=== PATIENT | male | born 1950 | race Caucasian/White ===

== ENCOUNTER 2019-12-28 20:08 | Inpatient (IN) | payer MEDICARE ==
[~2019-12-28] VITALS: Ht 175.3 cm; Wt 98.4 kg
[2019-12-28 20:43] VITALS: BP 154/87
[2019-12-28] MEDS ORDERED: METHYL SALICYLATE/MENTHOL TOPICAL OINTMENT 57GM TUBE. TP PRN (21:00)
[2019-12-28] MEDS ORDERED: MAGNESIUM HYDROXIDE 2,400 MG/30 ML ORAL.SUSP. PO PRN (21:00)
[2019-12-28] MEDS ORDERED: MAG HYDROX/AL HYDROX/SIMETH 30 ML ORAL.SUSP PO PRN (21:00)
[2019-12-28 21:55] LABS: BASO # 0.1 x10^3/uL (0.0-0.2); BASO % 1 % (0-3); EOS # 0.2 x10^3/uL (0.0-0.7); EOS % 3 % (0-3); HEMATOCRIT 45.5 % (39.0-53.0); HEMOGLOBIN 15.3 g/dL (13.0-17.5); LYMPH # 3.2 x10^3/uL (1.0-4.8); LYMPH % 40 % (24-48); MEAN CORPUSCULAR HEMOGLOBIN 32 pg (25-35); MEAN CORPUSCULAR HGB CONC 34 g/dL (31-37); MEAN CORPUSCULAR VOLUME 94 fL (79-100); MONO # 0.8 x10^3/uL (0.0-1.1); MONO % 10 % (0-9); NEUT # 3.7 x10^3uL (1.8-7.7); NEUT % 47 % (31-73); PLATELET COUNT 129 x10^3/uL (140-400); RED BLOOD COUNT 4.86 x10^6/uL (4.30-5.70); RED CELL DISTRIBUTION WIDTH 14.5 % (11.5-14.5)
--- NOTE | 2019-12-28 22:10 | PDOC ---
Exam Note: Michael Note: Please also refer to the separate dictated note~for this date of service dictated separately. Discussed the patient with Nursing staff reviewed the chart.~Reviewed interim history and current functioning. Reviewed vital signs,~Labs/ Radiology~and current medications noted below. Continue current treatment with the changes noted in the dictated addendum note Assessment: Vital Signs/I&O: Vital Signs Date Time Temp Pulse Resp B/P (MAP) Pulse Ox O2 Delivery O2 Flow Rate FiO2 12/28/19 20:43 97.6 69 20 154/87 (109) 96 Labs: Laboratory Tests Test 12/28/19 21:43 White Blood Count 8.0 x10^3/uL (4.0-11.0) Red Blood Count 4.86 x10^6/uL (4.30-5.70) Hemoglobin 15.3 g/dL (13.0-17.5) Hematocrit 45.5 % (39.0-53.0) Mean Corpuscular Volume 94 fL (79-100) Mean Corpuscular Hemoglobin 32 pg (25-35) Mean Corpuscular Hemoglobin Concent 34 g/dL (31-37) Red Cell Distribution Width 14.5 % (11.5-14.5) Platelet Count 129 x10^3/uL (140-400) L Neutrophils (%) (Auto) 47 % (31-73) Lymphocytes (%) (Auto) 40 % (24-48) Monocytes (%) (Auto) 10 % (0-9) H Eosinophils (%) (Auto) 3 % (0-3) Basophils (%) (Auto) 1 % (0-3) Neutrophils # (Auto) 3.7 x10^3uL (1.8-7.7) Lymphocytes # (Auto) 3.2 x10^3/uL (1.0-4.8) Monocytes # (Auto) 0.8 x10^3/uL (0.0-1.1) Eosinophils # (Auto) 0.2 x10^3/uL (0.0-0.7) Basophils # (Auto) 0.1 x10^3/uL (0.0-0.2) Current Medications: I have reviewed the current psychotropics carefully including drug interactions. Risk benefit ratio favors no change other than as noted in my dictated progress note. CAMERON ROSAS MD December 28, 2019 22:10
[2019-12-28 22:16] LABS: ALBUMIN 3.5 g/dL (3.4-5.0); ALBUMIN/GLOBULIN RATIO 0.9 (1.0-1.7); CALCIUM 9.1 mg/dL (8.5-10.1); CREATININE 0.8 mg/dL (0.7-1.3); GFR 95.8; MAGNESIUM 2.4 mg/dL (1.8-2.4); POTASSIUM 3.6 mmol/L (3.5-5.1); TOTAL BILIRUBIN 0.6 mg/dL (0.2-1.0); TOTAL PROTEIN 7.2 g/dL (6.4-8.2)
[2019-12-28] MEDS ORDERED: APIX5TAB3 PO (23:32)
[2019-12-28] MEDS ORDERED: ASCO500C PO (23:32)
[2019-12-28] MEDS ORDERED: CYCL5TAB PO (23:32)
[2019-12-28] MEDS ORDERED: GABA-586 PO (23:32)
[2019-12-28] MEDS ORDERED: QUET25TA5 PO ×2 (23:32)
[2019-12-28] MEDS ORDERED: DIVA250T PO (23:32)
[2019-12-28] MEDS ORDERED: LEVO25TA4 PO (23:32)
[2019-12-28] MEDS ORDERED: TIMO5SOL10 EACHEYE (23:32)
[2019-12-28] MEDS ORDERED: DIVA500T17 PO (23:32)
[2019-12-28] MEDS ORDERED: ESZO2TAB26 PO (23:32)
[2019-12-28] MEDS ORDERED: SENN1TAB62 PO (23:32)
[2019-12-28] MEDS ORDERED: MENT118G TOP (23:32)
[2019-12-28] MEDS ORDERED: METO-239 PO (23:32)
[2019-12-28] MEDS ORDERED: ACET325T9 PO (23:32)
[2019-12-28] MEDS ORDERED: DOCU-109 PO (23:32)
[2019-12-28] MEDS ORDERED: DICL100G18 TP (23:32)
[2019-12-28] MEDS ORDERED: POTA20TA4 PO (23:32)
[2019-12-28] MEDS ORDERED: MELA5TAB20 PO (23:32)
[2019-12-28] MEDS ORDERED: FURO-68 PO (23:32)
[2019-12-28] MEDS ORDERED: CARB1TAB20 PO (23:32)
[2019-12-28] MEDS ORDERED: ATOR40TA59 PO (23:32)
[2019-12-28] MEDS ORDERED: RIVA1PAT22 TP (23:32)
[2019-12-28 23:34] LABS: VAL ACID 59 mcg/mL (50-100)
[2019-12-28] MEDS ORDERED: ANTI-COAG MONITOR BY PHARMACY. MC PRN (23:45)
[2019-12-28] MEDS ORDERED: DICLOFENAC SODIUM 1% TOPICAL GEL 100GM TUBE. TP PRN (23:45)
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
[2019-12-29] MEDS: LEVOTHYROXINE 25 MCG TABLET. PO SCH (06:09)
[2019-12-29 06:19] VITALS: BP 145/87
[2019-12-29] MEDS ORDERED: NON FORMULARY ITEM (Menthol (Biofreeze) 1 APP) TOP SCH (09:00)
[2019-12-29] MEDS: TIMOLOL 0.5% OPHTH SOLUTION 5ML BOTTLE. OU SCH ×2 (09:00→21:49)
[2019-12-29] MEDS: CARBIDOPA/LEVODOPA 10/100MG TABLET PO SCH ×3 (09:34→21:48)
[2019-12-29] MEDS: ASCORBIC ACID 500 MG TABLET PO SCH (09:35)
[2019-12-29] MEDS: FUROSEMIDE 40 MG TABLET PO SCH (09:35)
[2019-12-29] MEDS: DOCUSATE SODIUM 100 MG CAPSULE PO SCH (09:35)
[2019-12-29] MEDS: POTASSIUM CHLORIDE 20 MEQ TABLET.ER. PO SCH (09:35)
[2019-12-29] MEDS: SENNOSIDES/DOCUSATE 8.6/50MG TABLET. PO SCH (09:35)
[2019-12-29] MEDS: APIXABAN 5 MG TABLET. PO SCH ×2 (09:35→21:48)
[2019-12-29] MEDS: QUEtiapine 25 MG TABLET. PO SCH ×3 (09:36→21:48)
[2019-12-29] MEDS: DIVALPROEX ER 500 MG TAB.ER.24H PO SCH (09:36)
[2019-12-29] MEDS: METOPROLOL TART IMMED RELEASE 25 MG TABLET PO SCH ×2 (09:36→21:48)
[2019-12-29] MEDS: RIVASTIGMINE 4.6MG PATCH. TD SCH (09:37)
--- NOTE | 2019-12-29 09:42 | NUR ---
Dr. Goetz does not want to continue Lunesta.
--- NOTE | 2019-12-29 10:21 | NUR ---
Talked with patient's , she gave permission to obtain prior medical records. She also conveyed some of the patient's dietary preferences; diet order updated and kitchen notified. She states patient has been getting much worse over the last several weeks. Informed her that patient's SW would be contacting her sometime today, and that patient was restless and doorchecking, but he was also compliant with medications.
--- NOTE | 2019-12-29 15:12 | NUR ---
Patient is standing in the hallway, having a conversation with people that are not there. From listening to the conversation, it appears that patient is doing patient rounds. Will provide prn medication and continue to monitor.
[2019-12-29 15:53] VITALS: BP 118/78
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
[2019-12-29 17:40] LABS: THYROID STIM HORMONE (TSH) 3.636 uIU/mL (0.358-3.740)
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
[2019-12-29 20:07] LABS: THYROXINE 6.4 ug/dL (4.5-12.0)
[2019-12-29] MEDS: MELATONIN 3 MG TABLET PO SCH (21:00)
[2019-12-29] MEDS: DIVALPROEX 125 MG CAP.SPRINK PO SCH (21:47)
[2019-12-29] MEDS: ACETAMINOPHEN 500 MG TABLET PO SCH (21:47)
[2019-12-29] MEDS: ATORVASTATIN CALCIUM 20 MG TABLET PO SCH (21:47)
[2019-12-29] MEDS: GABAPENTIN 300 MG CAPSULE. PO SCH (21:47)
[2019-12-29] MEDS: CYCLOBENZAPRINE 10 MG TABLET. PO SCH (21:48)
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
--- NOTE | 2019-12-29 22:11 | PDOC ---
Exam Note: Micheal Note: Please also refer to the separate dictated note~for this date of service dictated separately.~Patient seen individually. Discussed the patient with Nursing staff reviewed the chart.~Reviewed interim history and current functioning. Reviewed vital signs,~Labs/ Radiology~and current medications noted below. Continue current treatment with the changes noted in the dictated addendum note Assessment: Vital Signs/I&O: Vital Signs Date Time Temp Pulse Resp B/P (MAP) Pulse Ox O2 Delivery O2 Flow Rate FiO2 12/29/19 21:48 84 118/78 12/29/19 18:16 98.2 12/29/19 15:53 18 96 I & O 12/28/19 12/28/19 12/29/19 15:00 23:00 07:00 Intake Total 120 ml Balance 120 ml Current Medications: Meds: Current Medications Medications (Trade) Dose Ordered Sig/Gloria Route PRN Reason Start Time Stop Time Status Last Admin Dose Admin Acetaminophen (Tylenol) 500 mg HS PO 12/29/19 21:00 12/29/19 21:47 Apixaban (Eliquis) 5 mg BID PO 12/29/19 09:00 12/29/19 21:48 Carbidopa/Levodopa (Sinemet 10/100) 1 tab [id number] PO 12/29/19 09:00 12/29/19 21:48 Divalproex Sodium (Depakote Sprinkles) 125 mg QHS PO 12/29/19 21:00 12/29/19 21:47 Divalproex Sodium (Depakote Er) 500 mg DAILY PO 12/29/19 09:00 12/29/19 09:36 Docusate Sodium (Colace) 100 mg DAILY PO 12/29/19 09:00 12/29/19 09:35 Furosemide (Lasix) 40 mg DAILY PO 12/29/19 09:00 12/29/19 09:35 Gabapentin (Neurontin) 300 mg HS PO 12/29/19 21:00 12/29/19 21:47 Levothyroxine Sodium (Synthroid) 25 mcg DAILY06 PO 12/29/19 06:00 12/29/19 06:09 Metoprolol Tartrate (Lopressor) 25 mg BID PO 12/29/19 09:00 12/29/19 21:48 Potassium Chloride (Klor-Con) 20 meq DAILY PO 12/29/19 09:00 12/29/19 09:35 Quetiapine Fumarate (SEROquel) 25 mg AFTRNOON PO 12/29/19 13:00 12/29/19 13:32 Quetiapine Fumarate (SEROquel) 37.5 mg BID PO 12/29/19 09:00 12/29/19 21:48 Rivastigmine (Exelon) 1 patch DAILY TD 12/29/19 09:00 12/29/19 09:37 Senna/Docusate Sodium (Senna Plus) 1 tab DAILY PO 12/29/19 09:00 12/29/19 09:35 Ascorbic Acid (Vitamin C) 500 mg DAILY PO 12/29/19 09:00 12/29/19 09:35 Atorvastatin Calcium (Lipitor) 40 mg QHS PO 12/29/19 21:00 12/29/19 21:47 Cyclobenzaprine HCl (Flexeril) 5 mg QHS PO 12/29/19 21:00 12/29/19 21:48 Melatonin (Melatonin) 3 mg QHS PO 12/29/19 21:00 12/29/19 21:00 Timolol Maleate (Timoptic 0.5% Ophth) 1 drop BID OU 12/29/19 09:00 12/29/19 21:49 Olanzapine (ZyPREXA ZYDIS) 2.5 mg PRN Q2HR PRN PO PSYCHOSIS 12/29/19 09:45 12/29/19 15:20 I have reviewed the current psychotropics carefully including drug interactions. Risk benefit ratio favors no change other than as noted in my dictated progress note. Diagnosis: Problems: (1) Major neurocognitive disorder (2) Dementia, vascular, with delusions (3) Dementia in Alzheimer's disease with delusions (4) Parkinson's disease CAMERON ROSAS MD December 29, 2019 22:11
[2019-12-30] MEDS: traZODone 50 MG TABLET. PO PRN ×3 (00:01→21:42)
[2019-12-30 00:06] LABS: HEMOGLOBIN A1C 6.2 % (4.8-5.6)
--- NOTE | 2019-12-30 01:34 | NUR ---
Nursing Note The patient was located in the [facility] [place] for most of this shift R/T wandering into other patients room and increased agitation. The patient took his medication whole. The patient is very disorganized and unable to follow conversation. The patient received PRN Trazodone@HS. The patient is currently sleeping in the [place].
[2019-12-30] MEDS: LEVOTHYROXINE 25 MCG TABLET. PO SCH (05:47)
[2019-12-30 06:22] VITALS: BP 131/82
[2019-12-30 06:33] VITALS: BP 131/82
[2019-12-30] MEDS: METOPROLOL TART IMMED RELEASE 25 MG TABLET PO SCH ×2 (08:57→21:21)
[2019-12-30] MEDS: DOCUSATE SODIUM 100 MG CAPSULE PO SCH (08:57)
[2019-12-30] MEDS: CARBIDOPA/LEVODOPA 10/100MG TABLET PO SCH ×3 (08:58→21:20)
[2019-12-30] MEDS: SENNOSIDES/DOCUSATE 8.6/50MG TABLET. PO SCH (08:58)
[2019-12-30] MEDS: QUEtiapine 25 MG TABLET. PO SCH ×3 (08:58→21:21)
[2019-12-30] MEDS: APIXABAN 5 MG TABLET. PO SCH ×2 (08:58→21:22)
[2019-12-30] MEDS: FUROSEMIDE 40 MG TABLET PO SCH (08:58)
[2019-12-30] MEDS: ASCORBIC ACID 500 MG TABLET PO SCH (08:59)
[2019-12-30] MEDS: POTASSIUM CHLORIDE 20 MEQ TABLET.ER. PO SCH (08:59)
[2019-12-30] MEDS: DIVALPROEX ER 500 MG TAB.ER.24H PO SCH (08:59)
[2019-12-30] MEDS: TIMOLOL 0.5% OPHTH SOLUTION 5ML BOTTLE. OU SCH ×2 (09:00→21:22)
[2019-12-30] MEDS: RIVASTIGMINE 4.6MG PATCH. TD SCH (09:00)
[2019-12-30] MEDS ORDERED: ANTI-COAG MONITOR BY PHARMACY. MC PRN (12:00)
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
--- NOTE | 2019-12-30 12:34 | NUR ---
Nursing note: Pt was in his room for morning meds and assessment. He was compliant with taking his meds whole and cooperative with his assessment. 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 He says he is 50 at this time. Pt was observed in the hallway earlier in the morning attempting to play a game with a peer. He is currently in his room eating lunch. Will continue to monitor.
[2019-12-30 16:17] LABS: BASO # 0.1 x10^3/uL (0.0-0.2); BASO % 1 % (0-3); EOS # 0.3 x10^3/uL (0.0-0.7); EOS % 5 % (0-3); HEMATOCRIT 45.1 % (39.0-53.0); HEMOGLOBIN 15.3 g/dL (13.0-17.5); LYMPH # 2.7 x10^3/uL (1.0-4.8); LYMPH % 38 % (24-48); MEAN CORPUSCULAR HEMOGLOBIN 32 pg (25-35); MEAN CORPUSCULAR HGB CONC 34 g/dL (31-37); MEAN CORPUSCULAR VOLUME 93 fL (79-100); MONO # 0.7 x10^3/uL (0.0-1.1); MONO % 11 % (0-9); NEUT # 3.2 x10^3uL (1.8-7.7); NEUT % 46 % (31-73); PLATELET COUNT 136 x10^3/uL (140-400); RED BLOOD COUNT 4.83 x10^6/uL (4.30-5.70); RED CELL DISTRIBUTION WIDTH 14.2 % (11.5-14.5)
--- NOTE | 2019-12-30 16:20 | NUR ---
ACTIVITY THERAPY ASSESSMENT Completed based on observation, interview, and notes. Pt. was agreeable to speak with MANAGER CAMP and knew where his room was. He was talkative and needed some redirection back on topic. He felt that he was tricked here, told he was needed here for a job. When asked about leisure interest/ hobbies, Pt. talked about work. 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 Pt. talked about his awareness of this "Alzheimers" MANAGER CAMP tried to ask about hobbies again, music interest specifically, and Pt. shared he liked [employer] the best. Notes indicate Pt. was a "worker" but had interest in canoeing, hiking and some yard work. Pt. made a couple jokes, complimented MANAGER CAMP's eyes and quickly clarified he wasn't "hitting on" her because he doesn't do that. Pt. has been seen in a hospital gown, wandering the halls, needing reminders to keep his mask on this face appropriately. Usually responds well to redirection. Pt. expressed interest in calling his which MANAGER CAMP was able to help coordinate after the interview. Initial goal aimed to increase leisure engagement and socialization: Pt. will participate in at least three Activity Therapy groups before discharge. Addendum: 01/16/20 at 1523 by ERUM BARRAGAN ACT Pt. will participate in at least five Activity Therapy groups per week Addendum: 01/19/20 at 1053 by ERUM ABRRAGAN ACT Goal changed 01/18: pt. will participate fully in five activity therapy groups.
[2019-12-30 16:36] LABS: ALBUMIN 3.4 g/dL (3.4-5.0); CALCIUM 9.2 mg/dL (8.5-10.1); GFR 74.1; POTASSIUM 3.9 mmol/L (3.5-5.1); TOTAL PROTEIN 6.9 g/dL (6.4-8.2)
[2019-12-30 16:46] VITALS: BP 122/76
[2019-12-30] MEDS: MELATONIN 3 MG TABLET PO SCH (21:00)
[2019-12-30] MEDS: ATORVASTATIN CALCIUM 20 MG TABLET PO SCH (21:20)
[2019-12-30] MEDS: ACETAMINOPHEN 500 MG TABLET PO SCH (21:21)
[2019-12-30] MEDS: GABAPENTIN 300 MG CAPSULE. PO SCH (21:21)
[2019-12-30] MEDS: CYCLOBENZAPRINE 10 MG TABLET. PO SCH (21:21)
[2019-12-30] MEDS: DIVALPROEX 125 MG CAP.SPRINK PO SCH (21:22)
--- NOTE | 2019-12-30 22:03 | PDOC ---
Exam Note: Michael Note: Please also refer to the separate dictated note~for this date of service dictated separately.~Patient seen individually. Discussed the patient with Nursing staff reviewed the chart.~Reviewed interim history and current functioning. Reviewed vital signs,~Labs/ Radiology~and current medications noted below. Continue current treatment with the changes noted in the dictated addendum note Assessment: Vital Signs/I&O: Vital Signs Date Time Temp Pulse Resp B/P (MAP) Pulse Ox O2 Delivery O2 Flow Rate FiO2 12/30/19 21:25 97.9 98 12/30/19 21:21 60 122/76 12/30/19 16:46 16 12/30/19 06:22 Room Air I & O 12/29/19 12/29/19 12/30/19 15:00 23:00 07:00 Intake Total 480 ml Balance 480 ml Labs: Laboratory Tests Test 12/30/19 15:41 White Blood Count 7.0 x10^3/uL (4.0-11.0) Red Blood Count 4.83 x10^6/uL (4.30-5.70) Hemoglobin 15.3 g/dL (13.0-17.5) Hematocrit 45.1 % (39.0-53.0) Mean Corpuscular Volume 93 fL (79-100) Mean Corpuscular Hemoglobin 32 pg (25-35) Mean Corpuscular Hemoglobin Concent 34 g/dL (31-37) Red Cell Distribution Width 14.2 % (11.5-14.5) Platelet Count 136 x10^3/uL (140-400) L Neutrophils (%) (Auto) 46 % (31-73) Lymphocytes (%) (Auto) 38 % (24-48) Monocytes (%) (Auto) 11 % (0-9) H Eosinophils (%) (Auto) 5 % (0-3) H Basophils (%) (Auto) 1 % (0-3) Neutrophils # (Auto) 3.2 x10^3uL (1.8-7.7) Lymphocytes # (Auto) 2.7 x10^3/uL (1.0-4.8) Monocytes # (Auto) 0.7 x10^3/uL (0.0-1.1) Eosinophils # (Auto) 0.3 x10^3/uL (0.0-0.7) Basophils # (Auto) 0.1 x10^3/uL (0.0-0.2) Sodium Level 142 mmol/L (136-145) Potassium Level 3.9 mmol/L (3.5-5.1) Chloride Level 104 mmol/L (98-107) Carbon Dioxide Level 32 mmol/L (21-32) Anion Gap 6 (6-14) Blood Urea Nitrogen 18 mg/dL (8-26) Creatinine 1.0 mg/dL (0.7-1.3) Estimated GFR (Cockcroft-Gault) 74.1 BUN/Creatinine Ratio 18 (6-20) Glucose Level 117 mg/dL (70-99) H Calcium Level 9.2 mg/dL (8.5-10.1) Total Bilirubin 1.0 mg/dL (0.2-1.0) Aspartate Amino Transferase (AST) 21 U/L (15-37) Alanine Aminotransferase (ALT) 10 U/L (16-63) L Alkaline Phosphatase 77 U/L (46-116) Total Protein 6.9 g/dL (6.4-8.2) Albumin 3.4 g/dL (3.4-5.0) Albumin/Globulin Ratio 1.0 (1.0-1.7) Current Medications: I have reviewed the current psychotropics carefully including drug interactions. Risk benefit ratio favors no change other than as noted in my dictated progress note. Diagnosis: Problems: (1) Major neurocognitive disorder (2) Parkinson's disease (3) Dementia, vascular, with delusions (4) Dementia in Alzheimer's disease with delusions (5) Impulse control disorder (6) Anxiety disorder CAMERON ROSAS MD December 30, 2019 22:03
--- NOTE | 2019-12-31 02:44 | NUR ---
Nursing Note The patient was located in the hallways this shift. The patient was very confused and remains unable to follow most conversations. The patient was compliant with his medication and took them whole. The patient was very restless at HS and was given PRN Trazodone per PRN order. The patient is currently sleeping in his room.
[2019-12-31] MEDS: LEVOTHYROXINE 25 MCG TABLET. PO SCH (05:32)
[2019-12-31 06:11] VITALS: BP 121/70
[2019-12-31] MEDS: QUEtiapine 25 MG TABLET. PO SCH ×3 (08:37→20:47)
[2019-12-31] MEDS: CARBIDOPA/LEVODOPA 10/100MG TABLET PO SCH ×3 (08:37→20:45)
[2019-12-31] MEDS: RIVASTIGMINE 4.6MG PATCH. TD SCH (08:38)
[2019-12-31] MEDS: APIXABAN 5 MG TABLET. PO SCH ×2 (08:39→20:46)
[2019-12-31] MEDS: POTASSIUM CHLORIDE 20 MEQ TABLET.ER. PO SCH (08:39)
[2019-12-31] MEDS: FUROSEMIDE 40 MG TABLET PO SCH (08:39)
[2019-12-31] MEDS: METOPROLOL TART IMMED RELEASE 25 MG TABLET PO SCH ×2 (08:39→20:46)
[2019-12-31] MEDS: DIVALPROEX ER 500 MG TAB.ER.24H PO SCH (08:39)
[2019-12-31] MEDS: DOCUSATE SODIUM 100 MG CAPSULE PO SCH (08:39)
[2019-12-31] MEDS: ASCORBIC ACID 500 MG TABLET PO SCH (08:39)
[2019-12-31] MEDS: SENNOSIDES/DOCUSATE 8.6/50MG TABLET. PO SCH (08:40)
[2019-12-31] MEDS: TIMOLOL 0.5% OPHTH SOLUTION 5ML BOTTLE. OU SCH ×2 (08:40→20:49)
--- NOTE | 2019-12-31 09:07 | NUR ---
Patient compliant with medication. Patient thinks he is helping us make masks. Patient calm at this time.
[2019-12-31 16:17] VITALS: BP 119/78
[2019-12-31] MEDS: DIVALPROEX 125 MG CAP.SPRINK PO SCH (20:45)
[2019-12-31] MEDS: CYCLOBENZAPRINE 10 MG TABLET. PO SCH (20:46)
[2019-12-31] MEDS: MELATONIN 3 MG TABLET PO SCH (20:48)
[2019-12-31] MEDS: GABAPENTIN 300 MG CAPSULE. PO SCH (20:48)
[2019-12-31] MEDS: ACETAMINOPHEN 500 MG TABLET PO SCH (20:48)
[2019-12-31] MEDS: ATORVASTATIN CALCIUM 20 MG TABLET PO SCH (20:49)
--- NOTE | 2019-12-31 22:00 | NUR ---
Patient is in his room on assumption of care. He is laying down, awake. He is in pleasant spirits. Compliant with assessments and medications taken whole. No agitation. No complaints of pain or discomfort. Denies SI/HI.
--- NOTE | 2019-12-31 22:30 | PDOC ---
Exam Note: Michael Note: Please also refer to the separate dictated note~for this date of service dictated separately.~Patient seen individually. Discussed the patient with Nursing staff reviewed the chart.~Reviewed interim history and current functioning. Reviewed vital signs,~Labs/ Radiology~and current medications noted below. Continue current treatment with the changes noted in the dictated addendum note Assessment: Vital Signs/I&O: Vital Signs Date Time Temp Pulse Resp B/P (MAP) Pulse Ox O2 Delivery O2 Flow Rate FiO2 12/31/19 21:01 97.5 97 12/31/19 20:46 61 119/78 12/31/19 16:17 16 Room Air I & O 12/30/19 12/30/19 12/31/19 15:00 23:00 07:00 Intake Total 480 ml 360 ml Balance 480 ml 360 ml Current Medications: I have reviewed the current psychotropics carefully including drug interactions. Risk benefit ratio favors no change other than as noted in my dictated progress note. Diagnosis: Problems: (1) Major neurocognitive disorder (2) Parkinson's disease (3) Dementia, vascular, with delusions (4) Dementia in Alzheimer's disease with delusions (5) Anxiety disorder (6) Impulse control disorder CAMERON ROSAS MD December 31, 2019 22:30
[2020-01-01] MEDS: LEVOTHYROXINE 25 MCG TABLET. PO SCH (06:00)
[2020-01-01 06:47] VITALS: BP 136/80
[2020-01-01] MEDS: TIMOLOL 0.5% OPHTH SOLUTION 5ML BOTTLE. OU SCH ×2 (08:00→20:55)
[2020-01-01] MEDS: ASCORBIC ACID 500 MG TABLET PO SCH (08:00)
[2020-01-01] MEDS: RIVASTIGMINE 4.6MG PATCH. TD SCH (08:00)
[2020-01-01] MEDS: POTASSIUM CHLORIDE 20 MEQ TABLET.ER. PO SCH (08:01)
[2020-01-01] MEDS: DOCUSATE SODIUM 100 MG CAPSULE PO SCH (08:01)
[2020-01-01] MEDS: APIXABAN 5 MG TABLET. PO SCH ×2 (08:01→20:56)
[2020-01-01] MEDS: SENNOSIDES/DOCUSATE 8.6/50MG TABLET. PO SCH (08:01)
[2020-01-01] MEDS: CARBIDOPA/LEVODOPA 10/100MG TABLET PO SCH ×3 (08:01→20:59)
[2020-01-01] MEDS: DIVALPROEX ER 500 MG TAB.ER.24H PO SCH (08:01)
[2020-01-01] MEDS: QUEtiapine 25 MG TABLET. PO SCH ×3 (08:02→20:56)
[2020-01-01] MEDS: FUROSEMIDE 40 MG TABLET PO SCH (08:02)
[2020-01-01] MEDS: METOPROLOL TART IMMED RELEASE 25 MG TABLET PO SCH ×2 (08:02→20:59)
--- NOTE | 2020-01-01 08:10 | PDOC ---
Exam Note: Michael Note: This note is a late entry for 12/30/2019 covers elements not covered in my initial note. Subjective: The patient was seen face to face in the evening of 12/30/2019. Nursing report was with Laila BRASHER. Discussed the patient with nursing staff reviewed the chart. He slept 4 hours previous night. He is quite agitated, restless previous evening. Received trazodone. Remains confused. He is alert and oriented to himself and believes he is in [place]. Review of Systems: No CV, GI/, Pulmonary, Eye, ENT system symptoms on review. Mental Status Exam: Oriented to himself. Insight and judgment, recent and remote memory, attention and concentration, fund of knowledge is poor consistent with his diagnosis. 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 Laboratory Data: Reviewed. Impression: Major neurocognitive disorder Alzheimer vascular with delusion, depression and behavioral disturbance. Anxiety disorder unspecified. Impulse control disorder unspecified. Rest unchanged. Plan: No change from initial note. Maintain Depakote at current dosage, melatonin, Seroquel, Exelon patch. We may need to increase this. Continue trazodone and Zyprexa p.r.n. Follow labs level on the Depakote. Adjust to reach therapeutic level. Assessment: Vital Signs/I&O: Vital Signs Date Time Temp Pulse Resp B/P (MAP) Pulse Ox O2 Delivery O2 Flow Rate FiO2 01/01/20 08:02 62 136/80 01/01/20 06:47 98.4 18 100 12/31/19 16:17 Room Air I & O 12/31/19 12/31/19 01/01/20 15:00 23:00 07:00 Intake Total 600 ml 600 ml Balance 600 ml 600 ml Current Medications: I have reviewed the current psychotropics carefully including drug interactions. Risk benefit ratio favors no change other than as noted in my dictated progress note. Diagnosis: Problems: (1) Major neurocognitive disorder (2) Parkinson's disease (3) Dementia, vascular, with delusions (4) Dementia in Alzheimer's disease with delusions (5) Anxiety disorder (6) Impulse control disorder CAMERON ROSAS MD January 01, 2020 08:10
--- NOTE | 2020-01-01 08:13 | PDOC ---
Exam Note: Michael Note: This note is a late entry for 12/31/2019 covers elements not covered in my initial note. Subjective: The patient was seen face to face in the evening of 12/31/2019. Nursing report was with June BRASHER. Discussed the patient with nursing staff reviewed the chart. He has been anxious, restless. I met with him in his room in the evening. He is talking about getting on a plane to go to [place] and believes he is helping people make masks. Review of Systems: No CV, GI/, Pulmonary, Eye, ENT system symptoms on review. Reliability poor. Mental Status Exam: Oriented to himself. Insight and judgment, recent and remote memory, attention and concentration, fund of knowledge is poor consistent with his diagnosis. Laboratory Data: Reviewed. Impression: Major neurocognitive disorder Alzheimer vascular with delusion, depression and behavioral disturbance. Anxiety disorder unspecified. Impulse control disorder unspecified. Rest unchanged. Plan: No change from initial note. Consider adjusting Depakote. Maintain the rest for now. We are using trazodone for insomnia rather than Lunesta which may have paradoxical disinhibition for him. Assessment: Vital Signs/I&O: Vital Signs Date Time Temp Pulse Resp B/P (MAP) Pulse Ox O2 Delivery O2 Flow Rate FiO2 01/01/20 08:02 62 136/80 01/01/20 06:47 98.4 18 100 12/31/19 16:17 Room Air I & O 12/31/19 12/31/19 01/01/20 15:00 23:00 07:00 Intake Total 600 ml 600 ml Balance 600 ml 600 ml Current Medications: I have reviewed the current psychotropics carefully including drug interactions. Risk benefit ratio favors no change other than as noted in my dictated progress note. Diagnosis: Problems: (1) Major neurocognitive disorder (2) Parkinson's disease (3) Dementia, vascular, with delusions (4) Dementia in Alzheimer's disease with delusions (5) Anxiety disorder (6) Impulse control disorder CAMERON ROSAS MD January 01, 2020 08:13
--- NOTE | 2020-01-01 08:51 | NUR ---
Patient compliant with assessment and medication. Patient believes he is selling things with his brown bag he is carrying around with him. Patient has no needs at this time.
[2020-01-01 16:09] VITALS: BP 150/88
[2020-01-01] MEDS: DIVALPROEX 125 MG CAP.SPRINK PO SCH (20:57)
[2020-01-01] MEDS: CYCLOBENZAPRINE 10 MG TABLET. PO SCH (20:58)
[2020-01-01] MEDS: ACETAMINOPHEN 500 MG TABLET PO SCH (20:58)
[2020-01-01] MEDS: GABAPENTIN 300 MG CAPSULE. PO SCH (20:58)
[2020-01-01] MEDS: ATORVASTATIN CALCIUM 20 MG TABLET PO SCH (20:58)
[2020-01-01] MEDS: MELATONIN 3 MG TABLET PO SCH (20:59)
--- NOTE | 2020-01-01 21:59 | PDOC ---
Exam Note: Michael Note: Please also refer to the separate dictated note~for this date of service dictated separately.~Patient seen individually. Discussed the patient with Nursing staff reviewed the chart.~Reviewed interim history and current functioning. Reviewed vital signs,~Labs/ Radiology~and current medications noted below. Continue current treatment with the changes noted in the dictated addendum note Assessment: Vital Signs/I&O: Vital Signs Date Time Temp Pulse Resp B/P (MAP) Pulse Ox O2 Delivery O2 Flow Rate FiO2 01/01/20 20:59 70 150/88 01/01/20 18:05 98.3 01/01/20 16:09 22 96 Room Air I & O 12/31/19 12/31/19 01/01/20 15:00 23:00 07:00 Intake Total 600 ml 600 ml Balance 600 ml 600 ml Current Medications: I have reviewed the current psychotropics carefully including drug interactions. Risk benefit ratio favors no change other than as noted in my dictated progress note. Diagnosis: Problems: (1) Major neurocognitive disorder (2) Parkinson's disease (3) Dementia, vascular, with delusions (4) Dementia in Alzheimer's disease with delusions (5) Anxiety disorder (6) Impulse control disorder CAMERON ROSAS MD January 01, 2020 21:59
--- NOTE | 2020-01-01 22:36 | NUR ---
Patient is ambulating around the unit on assumption of care. He is in pleasant spirits. Calm, cooperative and compliant with assessments and medications taken whole. No agitation. Denies any pain or discomfort. Denies SI/HI.
[2020-01-02] MEDS: LEVOTHYROXINE 25 MCG TABLET. PO SCH (06:03)
[2020-01-02 06:19] VITALS: BP 124/64
[2020-01-02 07:15] LABS: BASO % 1 % (0-3); EOS # 0.3 x10^3/uL (0.0-0.7); EOS % 5 % (0-3); HEMATOCRIT 42.6 % (39.0-53.0); HEMOGLOBIN 14.5 g/dL (13.0-17.5); LYMPH # 2.8 x10^3/uL (1.0-4.8); LYMPH % 46 % (24-48); MEAN CORPUSCULAR HEMOGLOBIN 32 pg (25-35); MEAN CORPUSCULAR HGB CONC 34 g/dL (31-37); MEAN CORPUSCULAR VOLUME 93 fL (79-100); MONO # 0.5 x10^3/uL (0.0-1.1); MONO % 9 % (0-9); NEUT # 2.5 x10^3uL (1.8-7.7); NEUT % 40 % (31-73); PLATELET COUNT 136 x10^3/uL (140-400); RED BLOOD COUNT 4.59 x10^6/uL (4.30-5.70); RED CELL DISTRIBUTION WIDTH 13.9 % (11.5-14.5); WHITE BLOOD COUNT 6.1 x10^3/uL (4.0-11.0)
--- NOTE | 2020-01-02 07:21 | PDOC ---
Exam Note: Michael Note: This note is a late entry for 01/01/2020 covers elements not covered in my initial note. Subjective: The patient was seen face to face in the evening of 01/01/2020. Nursing report was with Luis BRASHER. Discussed the patient with nursing staff reviewed the chart. The patient slept reasonably previous night. The patient has had good day. He remains confused, delusional, believes his son is on a Cruise ship, quite obsessed about this. Review of Systems: No CV, GI/, Pulmonary, Eye, ENT system symptoms on review. Mental Status Exam: Oriented to himself. Insight and judgment, recent and remote memory, attention and concentration, fund of knowledge is poor consistent with his diagnosis. Laboratory Data: Reviewed. Impression: Major neurocognitive disorder Alzheimer vascular with delusion, depression and behavioral disturbance. Anxiety disorder unspecified. Impulse control disorder unspecified. Rest unchanged. Plan: No change from initial note. Maintain Depakote along with melatonin, Seroquel, Exelon patch, and Zyprexa and trazodone are p.r.n. Assessment: Vital Signs/I&O: Vital Signs Date Time Temp Pulse Resp B/P (MAP) Pulse Ox O2 Delivery O2 Flow Rate FiO2 01/02/20 06:19 97.4 61 14 124/64 (84) 98 01/01/20 16:09 Room Air I & O 01/01/20 01/01/20 01/02/20 15:00 23:00 07:00 Intake Total 700 ml 480 ml Balance 700 ml 480 ml Current Medications: I have reviewed the current psychotropics carefully including drug interactions. Risk benefit ratio favors no change other than as noted in my dictated progress note. Diagnosis: Problems: (1) Major neurocognitive disorder (2) Parkinson's disease (3) Dementia, vascular, with delusions (4) Dementia in Alzheimer's disease with delusions (5) Anxiety disorder (6) Impulse control disorder CAMERON ROSAS MD January 02, 2020 07:21
[2020-01-02 07:30] LABS: ALBUMIN 3.2 g/dL (3.4-5.0); CALCIUM 8.9 mg/dL (8.5-10.1); CREATININE 0.7 mg/dL (0.7-1.3); GFR 111.8; POTASSIUM 3.7 mmol/L (3.5-5.1); TOTAL BILIRUBIN 0.6 mg/dL (0.2-1.0); TOTAL PROTEIN 6.5 g/dL (6.4-8.2)
[2020-01-02] MEDS: APIXABAN 5 MG TABLET. PO SCH ×2 (08:23→20:18)
[2020-01-02] MEDS: DOCUSATE SODIUM 100 MG CAPSULE PO SCH (08:23)
[2020-01-02] MEDS: SENNOSIDES/DOCUSATE 8.6/50MG TABLET. PO SCH (08:23)
[2020-01-02] MEDS: DIVALPROEX ER 500 MG TAB.ER.24H PO SCH (08:24)
[2020-01-02] MEDS: CARBIDOPA/LEVODOPA 10/100MG TABLET PO SCH ×3 (08:24→20:21)
[2020-01-02] MEDS: METOPROLOL TART IMMED RELEASE 25 MG TABLET PO SCH ×2 (08:24→20:19)
[2020-01-02] MEDS: POTASSIUM CHLORIDE 20 MEQ TABLET.ER. PO SCH (08:24)
[2020-01-02] MEDS: QUEtiapine 25 MG TABLET. PO SCH ×3 (08:25→20:20)
[2020-01-02] MEDS: FUROSEMIDE 40 MG TABLET PO SCH (08:25)
[2020-01-02] MEDS: ASCORBIC ACID 500 MG TABLET PO SCH (08:25)
[2020-01-02] MEDS: TIMOLOL 0.5% OPHTH SOLUTION 5ML BOTTLE. OU SCH ×2 (08:26→20:18)
[2020-01-02] MEDS: RIVASTIGMINE 4.6MG PATCH. TD SCH (08:26)
--- NOTE | 2020-01-02 14:41 | NUR ---
Nursing note: Pt in dining room for morning meds and assessment. He was compliant with his meds whole and cooperative with his assessment. He had no complaints at time of assessment. He is currently in the day room watching a [employer] baseball game. Will continue to monitor.
[2020-01-02 16:17] VITALS: BP 133/80
[2020-01-02] MEDS: DIVALPROEX 125 MG CAP.SPRINK PO SCH (20:18)
[2020-01-02] MEDS: CYCLOBENZAPRINE 10 MG TABLET. PO SCH (20:19)
[2020-01-02] MEDS: ATORVASTATIN CALCIUM 20 MG TABLET PO SCH (20:19)
[2020-01-02] MEDS: GABAPENTIN 300 MG CAPSULE. PO SCH (20:20)
[2020-01-02] MEDS: MELATONIN 3 MG TABLET PO SCH (20:20)
[2020-01-02] MEDS: ACETAMINOPHEN 500 MG TABLET PO SCH (20:20)
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
[2020-01-03] MEDS: ACETAMINOPHEN 325 MG TABLET PO PRN (03:07)
[2020-01-03] MEDS: LEVOTHYROXINE 25 MCG TABLET. PO SCH (05:05)
[2020-01-03 05:44] VITALS: BP 163/93
[2020-01-03] MEDS: CARBIDOPA/LEVODOPA 10/100MG TABLET PO SCH ×3 (08:08→21:00)
[2020-01-03] MEDS: ASCORBIC ACID 500 MG TABLET PO SCH (08:08)
[2020-01-03] MEDS: DOCUSATE SODIUM 100 MG CAPSULE PO SCH (08:08)
[2020-01-03] MEDS: POTASSIUM CHLORIDE 20 MEQ TABLET.ER. PO SCH (08:08)
[2020-01-03] MEDS: QUEtiapine 25 MG TABLET. PO SCH ×3 (08:09→21:00)
[2020-01-03] MEDS: SENNOSIDES/DOCUSATE 8.6/50MG TABLET. PO SCH (08:10)
[2020-01-03] MEDS: METOPROLOL TART IMMED RELEASE 25 MG TABLET PO SCH ×2 (08:10→21:00)
[2020-01-03] MEDS: FUROSEMIDE 40 MG TABLET PO SCH (08:10)
[2020-01-03] MEDS: DIVALPROEX ER 500 MG TAB.ER.24H PO SCH (08:10)
[2020-01-03] MEDS: APIXABAN 5 MG TABLET. PO SCH ×2 (08:10→21:00)
[2020-01-03] MEDS: RIVASTIGMINE 4.6MG PATCH. TD SCH (08:11)
[2020-01-03] MEDS: TIMOLOL 0.5% OPHTH SOLUTION 5ML BOTTLE. OU SCH ×2 (08:11→21:00)
--- NOTE | 2020-01-03 08:19 | PDOC ---
Exam Note: Michael Note: This is a late entry for DOS 01/02/2020. Please also refer to the separate dictated note~for this date of service dictated separately.~Patient seen individually. Discussed the patient with Nursing staff reviewed the chart.~Reviewed interim history and current functioning. Reviewed vital signs,~Labs/ Radiology~and current medications noted below. Continue current treatment with the changes noted in the dictated addendum note Assessment: Vital Signs/I&O: Vital Signs Date Time Temp Pulse Resp B/P (MAP) Pulse Ox O2 Delivery O2 Flow Rate FiO2 01/03/20 08:10 60 163/93 01/03/20 05:44 97.4 16 98 01/01/20 16:09 Room Air I & O 01/02/20 01/02/20 01/03/20 15:00 23:00 07:00 Intake Total 720 ml 480 ml Balance 720 ml 480 ml Current Medications: I have reviewed the current psychotropics carefully including drug interactions. Risk benefit ratio favors no change other than as noted in my dictated progress note. Diagnosis: Problems: (1) Major neurocognitive disorder (2) Parkinson's disease (3) Dementia, vascular, with delusions (4) Dementia in Alzheimer's disease with delusions (5) Anxiety disorder (6) Impulse control disorder CAMERON ROSAS MD January 03, 2020 08:19
[2020-01-03 15:58] VITALS: BP 141/77
--- NOTE | 2020-01-03 18:15 | NUR ---
Pt in dining room for morning meds and assessment. Pt calm, compliant, disorganized. Pt wanders into other pts rooms and is intrusive with other pts at times. Pt became restless before dinner. Prn zydis given. Pt continued to be intrusive with other pt after dinner.
[2020-01-03] MEDS: traZODone 100 MG TABLET. PO PRN ×2 (20:27→22:32)
[2020-01-03] MEDS: GABAPENTIN 300 MG CAPSULE. PO SCH (21:00)
[2020-01-03] MEDS: CYCLOBENZAPRINE 10 MG TABLET. PO SCH (21:00)
[2020-01-03] MEDS: ATORVASTATIN CALCIUM 20 MG TABLET PO SCH (21:00)
[2020-01-03] MEDS: ACETAMINOPHEN 500 MG TABLET PO SCH (21:00)
[2020-01-03] MEDS: MELATONIN 3 MG TABLET PO SCH (21:00)
[2020-01-03] MEDS: DIVALPROEX 125 MG CAP.SPRINK PO SCH (21:00)
--- NOTE | 2020-01-03 21:00 | NUR ---
Patient is wandering the halls on assumption of care. Very confused, disorganized. Compliant with assessments but resistant to medications. When this RN approached him and told him it was time to take his HS meds, he stated "It's too late. You made me wait to long and now I have an appointment that I am late for." This RN reminded him that it had only been a few minutes since he had been told his HS meds were being prepared. He did not believe that, and insisted he needed to make his appointment. At this point, patient began going into other patient's rooms repeatedly, and was resistant to redirection. He was brought to the quiet hallway. This RN brought him his HS meds again, and he was agreeable to taking them. He also received a PRN Zydis and Trazadone at that time. Minimal to moderate effect. Patient trying to disrobe, was put in a onesie. Staff attempted to put patient to bed, but he continued trying to get out of bed, so was brought to the quiet hallway again. Currently napping intermittently in a chair in the quiet hallway. Will continue to monitor.
--- NOTE | 2020-01-03 22:09 | PDOC ---
Exam Note: Michael Note: Please also refer to the separate dictated note~for this date of service dictated separately.~Patient seen individually. Discussed the patient with Nursing staff reviewed the chart.~Reviewed interim history and current functioning. Reviewed vital signs,~Labs/ Radiology~and current medications noted below. Continue current treatment with the changes noted in the dictated addendum note Assessment: Vital Signs/I&O: Vital Signs Date Time Temp Pulse Resp B/P (MAP) Pulse Ox O2 Delivery O2 Flow Rate FiO2 01/03/20 21:00 61 141/77 01/03/20 18:37 98.2 01/03/20 15:58 16 98 01/01/20 16:09 Room Air I & O 01/02/20 01/02/20 01/03/20 15:00 23:00 07:00 Intake Total 720 ml 480 ml Balance 720 ml 480 ml Current Medications: Meds: Current Medications Medications (Trade) Dose Ordered Sig/Gloria Route PRN Reason Start Time Stop Time Status Last Admin Dose Admin Trazodone HCl (Desyrel) 100 mg PRN QHS PRN PO INSOMNIA, DECEMBER REPEAT X1 01/03/20 21:00 01/03/20 20:27 I have reviewed the current psychotropics carefully including drug interactions. Risk benefit ratio favors no change other than as noted in my dictated progress note. Diagnosis: Problems: (1) Major neurocognitive disorder (2) Parkinson's disease (3) Dementia, vascular, with delusions (4) Dementia in Alzheimer's disease with delusions (5) Anxiety disorder (6) Impulse control disorder CAMERON ROSAS MD January 03, 2020 22:09
--- NOTE | 2020-01-03 23:17 | NUR ---
Patient is repeatedly attempting to exit his bed, stating "I have rounds to make, you are making me late." This business writer told him that he wasn't on shift, that it was his night off. He seemed to accept that. Repeat PRN Trazadone given at 2330, with little effect. Will continue to monitor.
[2020-01-04] MEDS: LEVOTHYROXINE 25 MCG TABLET. PO SCH (04:58)
[2020-01-04 05:30] VITALS: BP 154/84
--- NOTE | 2020-01-04 07:50 | PDOC ---
Exam Note: Michael Note: This note is a late entry for 01/02/2020 covers elements not covered in my initial note. Subjective: The patient was seen face to face in the evening of 01/02/2020. Nursing report was with Laila BRASHER. Discussed the patient with nursing staff reviewed the chart. The patient slept 6 hours previous night. Reportedly day before, he was yelling as if he was selling some ventilators. 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 Review of Systems: No CV, GI/, Pulmonary, Eye, ENT system symptoms on review. Mental Status Exam: Oriented to himself. Insight and judgment, recent and remote memory, attention and concentration, fund of knowledge is poor consistent with his diagnosis. Laboratory Data: Reviewed. Impression: Major neurocognitive disorder Alzheimer vascular with delusion, depression and behavioral disturbance. Anxiety disorder unspecified. Impulse control disorder unspecified. Rest unchanged. Plan: No change from initial note. Assessment: Vital Signs/I&O: Vital Signs Date Time Temp Pulse Resp B/P (MAP) Pulse Ox O2 Delivery O2 Flow Rate FiO2 01/04/20 05:30 98.1 63 16 154/84 (107) 97 01/01/20 16:09 Room Air I & O 01/03/20 01/03/20 01/04/20 15:00 23:00 07:00 Intake Total 960 ml 480 ml Balance 960 ml 480 ml Current Medications: Meds: Current Medications Medications (Trade) Dose Ordered Sig/Gloria Route PRN Reason Start Time Stop Time Status Last Admin Dose Admin Trazodone HCl (Desyrel) 100 mg PRN QHS PRN PO INSOMNIA, DECEMBER REPEAT X1 01/03/20 21:00 01/03/20 22:32 I have reviewed the current psychotropics carefully including drug interactions. Risk benefit ratio favors no change other than as noted in my dictated progress note. Diagnosis: Problems: (1) Major neurocognitive disorder (2) Parkinson's disease (3) Dementia, vascular, with delusions (4) Dementia in Alzheimer's disease with delusions (5) Anxiety disorder (6) Impulse control disorder CAMERON ROSAS MD January 04, 2020 07:50
--- NOTE | 2020-01-04 08:10 | PDOC ---
Exam Note: Michael Note: This note is a late entry for 01/03/2020 covers elements not covered in my initial note. Subjective: The patient was seen face to face with the treatment team in the morning including Karina Yuan, and January (social director), Serina, Activity Therapy. Nursing report was with Tamica BRASHER. Discussed the patient with nursing staff in the evening reviewed the chart. Per nursing report the patient has had a decent day. He remains confused. Slept 3-1/2 hours previous night and we will increase the trazodone from 50 mg h.s. p.r.n. may repeat x1 to 100 mg h.s. p.r.n. may repeat x1. Review of Systems: No CV, GI/, Pulmonary, Eye, ENT system symptoms on review. Reliability poor. Mental Status Exam: Oriented to himself. Insight and judgment, recent and remote memory, attention and concentration, fund of knowledge is poor consistent with his diagnosis. Laboratory Data: Reviewed. Impression: Major neurocognitive disorder Alzheimer vascular with delusion, depression and behavioral disturbance. Anxiety disorder unspecified. Impulse control disorder unspecified. Rest unchanged. Plan: No change from initial note. Increase the trazodone as above. Assessment: Vital Signs/I&O: Vital Signs Date Time Temp Pulse Resp B/P (MAP) Pulse Ox O2 Delivery O2 Flow Rate FiO2 01/04/20 05:30 98.1 63 16 154/84 (107) 97 01/01/20 16:09 Room Air I & O 01/03/20 01/03/20 01/04/20 15:00 23:00 07:00 Intake Total 960 ml 480 ml Balance 960 ml 480 ml Current Medications: Meds: Current Medications Medications (Trade) Dose Ordered Sig/Gloria Route PRN Reason Start Time Stop Time Status Last Admin Dose Admin Trazodone HCl (Desyrel) 100 mg PRN QHS PRN PO INSOMNIA, MAY REPEAT X1 01/03/20 21:00 01/03/20 22:32 I have reviewed the current psychotropics carefully including drug interactions. Risk benefit ratio favors no change other than as noted in my dictated progress note. Diagnosis: Problems: (1) Major neurocognitive disorder (2) Parkinson's disease (3) Dementia, vascular, with delusions (4) Dementia in Alzheimer's disease with delusions (5) Anxiety disorder (6) Impulse control disorder CAMERON ROSAS MD January 04, 2020 08:10
[2020-01-04] MEDS: APIXABAN 5 MG TABLET. PO SCH ×2 (08:50→20:22)
[2020-01-04] MEDS: POTASSIUM CHLORIDE 20 MEQ TABLET.ER. PO SCH (08:50)
[2020-01-04] MEDS: FUROSEMIDE 40 MG TABLET PO SCH (08:50)
[2020-01-04] MEDS: METOPROLOL TART IMMED RELEASE 25 MG TABLET PO SCH ×2 (08:50→20:21)
[2020-01-04] MEDS: DIVALPROEX ER 500 MG TAB.ER.24H PO SCH (08:51)
[2020-01-04] MEDS: SENNOSIDES/DOCUSATE 8.6/50MG TABLET. PO SCH (08:51)
[2020-01-04] MEDS: CARBIDOPA/LEVODOPA 10/100MG TABLET PO SCH ×3 (08:51→20:22)
[2020-01-04] MEDS: DOCUSATE SODIUM 100 MG CAPSULE PO SCH (08:51)
[2020-01-04] MEDS: ASCORBIC ACID 500 MG TABLET PO SCH (08:51)
[2020-01-04] MEDS: RIVASTIGMINE 4.6MG PATCH. TD SCH (08:52)
[2020-01-04] MEDS: TIMOLOL 0.5% OPHTH SOLUTION 5ML BOTTLE. OU SCH ×2 (08:52→20:20)
[2020-01-04] MEDS: QUEtiapine 25 MG TABLET. PO SCH ×3 (08:54→20:25)
--- NOTE | 2020-01-04 12:46 | NUR ---
Nursing note: Pt in dining room for morning meds and assessment. He was compliant with his meds whole and cooperative with his assessment. Pt has spent most of the morning in his room, but is currently in the dining room for lunch. Will continue to monitor.
[2020-01-04 15:06] LABS: BASO # 0.1 x10^3/uL (0.0-0.2); BASO % 1 % (0-3); EOS # 0.3 x10^3/uL (0.0-0.7); EOS % 4 % (0-3); HEMATOCRIT 48.3 % (39.0-53.0); HEMOGLOBIN 16.2 g/dL (13.0-17.5); LYMPH % 38 % (24-48); MEAN CORPUSCULAR HEMOGLOBIN 32 pg (25-35); MEAN CORPUSCULAR HGB CONC 34 g/dL (31-37); MEAN CORPUSCULAR VOLUME 94 fL (79-100); MONO # 0.8 x10^3/uL (0.0-1.1); MONO % 10 % (0-9); NEUT # 3.8 x10^3uL (1.8-7.7); NEUT % 47 % (31-73); PLATELET COUNT 153 x10^3/uL (140-400); RED BLOOD COUNT 5.14 x10^6/uL (4.30-5.70); RED CELL DISTRIBUTION WIDTH 14.4 % (11.5-14.5)
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
[2020-01-04 15:25] LABS: ALBUMIN 3.7 g/dL (3.4-5.0); ALBUMIN/GLOBULIN RATIO 0.9 (1.0-1.7); CALCIUM 9.4 mg/dL (8.5-10.1); CREATININE 0.9 mg/dL (0.7-1.3); GFR 83.7; POTASSIUM 4.5 mmol/L (3.5-5.1); TOTAL BILIRUBIN 0.8 mg/dL (0.2-1.0); TOTAL PROTEIN 7.6 g/dL (6.4-8.2)
[2020-01-04 15:56] VITALS: BP 118/74
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
[2020-01-04] MEDS: DIVALPROEX 125 MG CAP.SPRINK PO SCH (20:21)
[2020-01-04] MEDS: MELATONIN 3 MG TABLET PO SCH (20:22)
[2020-01-04] MEDS: ACETAMINOPHEN 500 MG TABLET PO SCH (20:22)
[2020-01-04] MEDS: GABAPENTIN 300 MG CAPSULE. PO SCH (20:23)
[2020-01-04] MEDS: traZODone 100 MG TABLET. PO PRN (20:23)
[2020-01-04] MEDS: ATORVASTATIN CALCIUM 20 MG TABLET PO SCH (20:23)
[2020-01-04] MEDS: CYCLOBENZAPRINE 10 MG TABLET. PO SCH (20:24)
--- NOTE | 2020-01-04 22:09 | PDOC ---
Exam Note: Michael Note: Please also refer to the separate dictated note~for this date of service dictated separately.~Patient seen individually. Discussed the patient with Nursing staff reviewed the chart.~Reviewed interim history and current functioning. Reviewed vital signs,~Labs/ Radiology~and current medications noted below. Continue current treatment with the changes noted in the dictated addendum note Assessment: Vital Signs/I&O: Vital Signs Date Time Temp Pulse Resp B/P (MAP) Pulse Ox O2 Delivery O2 Flow Rate FiO2 01/04/20 20:21 67 118/74 01/04/20 18:09 97.8 01/04/20 15:56 18 96 01/01/20 16:09 Room Air I & O 01/03/20 01/03/20 01/04/20 15:00 23:00 07:00 Intake Total 960 ml 480 ml Balance 960 ml 480 ml Labs: Laboratory Tests Test 01/04/20 14:56 White Blood Count 8.0 x10^3/uL (4.0-11.0) Red Blood Count 5.14 x10^6/uL (4.30-5.70) Hemoglobin 16.2 g/dL (13.0-17.5) Hematocrit 48.3 % (39.0-53.0) Mean Corpuscular Volume 94 fL (79-100) Mean Corpuscular Hemoglobin 32 pg (25-35) Mean Corpuscular Hemoglobin Concent 34 g/dL (31-37) Red Cell Distribution Width 14.4 % (11.5-14.5) Platelet Count 153 x10^3/uL (140-400) Neutrophils (%) (Auto) 47 % (31-73) Lymphocytes (%) (Auto) 38 % (24-48) Monocytes (%) (Auto) 10 % (0-9) H Eosinophils (%) (Auto) 4 % (0-3) H Basophils (%) (Auto) 1 % (0-3) Neutrophils # (Auto) 3.8 x10^3uL (1.8-7.7) Lymphocytes # (Auto) 3.0 x10^3/uL (1.0-4.8) Monocytes # (Auto) 0.8 x10^3/uL (0.0-1.1) Eosinophils # (Auto) 0.3 x10^3/uL (0.0-0.7) Basophils # (Auto) 0.1 x10^3/uL (0.0-0.2) Sodium Level 147 mmol/L (136-145) H Potassium Level 4.5 mmol/L (3.5-5.1) Chloride Level 107 mmol/L (98-107) Carbon Dioxide Level 33 mmol/L (21-32) H Anion Gap 7 (6-14) Blood Urea Nitrogen 15 mg/dL (8-26) Creatinine 0.9 mg/dL (0.7-1.3) Estimated GFR (Cockcroft-Gault) 83.7 BUN/Creatinine Ratio 17 (6-20) Glucose Level 113 mg/dL (70-99) H Calcium Level 9.4 mg/dL (8.5-10.1) Total Bilirubin 0.8 mg/dL (0.2-1.0) Aspartate Amino Transferase (AST) 21 U/L (15-37) Alanine Aminotransferase (ALT) 19 U/L (16-63) Alkaline Phosphatase 84 U/L (46-116) Total Protein 7.6 g/dL (6.4-8.2) Albumin 3.7 g/dL (3.4-5.0) Albumin/Globulin Ratio 0.9 (1.0-1.7) L Current Medications: I have reviewed the current psychotropics carefully including drug interactions. Risk benefit ratio favors no change other than as noted in my dictated progress note. Diagnosis: Problems: (1) Major neurocognitive disorder (2) Parkinson's disease (3) Dementia, vascular, with delusions (4) Dementia in Alzheimer's disease with delusions (5) Anxiety disorder (6) Impulse control disorder CAMERON ROSAS MD January 04, 2020 22:09
--- NOTE | 2020-01-05 00:59 | NUR ---
Patient is sitting in the quiet hallway on assumption of care. He is confused, disorganized. Another patient had defecated onto the floor all over the hallway, and patient was resistant when this RN asked him to come into the day room so the mess could be cleaned. Finally able to be walked into the day room after several attempts. He was compliant with assessments and medications taken whole. Patient believes he is at work, repeatedly asking staff if he is "on-call" and if his meetings are scheduled. Able to be redirected. Patient changed into gown and assisted into bed with a staff assist of 2. No agitation. Denies any pain or discomfort. Denies SI. Patient appears to be sleeping comfortably at present time. Will continue to monitor.
[2020-01-05] MEDS: LEVOTHYROXINE 25 MCG TABLET. PO SCH (05:07)
[2020-01-05 06:14] VITALS: BP 116/87
[2020-01-05] MEDS: RIVASTIGMINE 4.6MG PATCH. TD SCH (09:00)
[2020-01-05] MEDS: DIVALPROEX ER 500 MG TAB.ER.24H PO SCH (10:46)
[2020-01-05] MEDS: POTASSIUM CHLORIDE 20 MEQ TABLET.ER. PO SCH (10:46)
[2020-01-05] MEDS: APIXABAN 5 MG TABLET. PO SCH ×2 (10:47→20:19)
[2020-01-05] MEDS: DOCUSATE SODIUM 100 MG CAPSULE PO SCH (10:47)
[2020-01-05] MEDS: SERTRALINE 25 MG TABLET. PO SCH (10:47)
[2020-01-05] MEDS: SENNOSIDES/DOCUSATE 8.6/50MG TABLET. PO SCH (10:47)
[2020-01-05] MEDS: FUROSEMIDE 40 MG TABLET PO SCH (10:47)
[2020-01-05] MEDS: METOPROLOL TART IMMED RELEASE 25 MG TABLET PO SCH ×2 (10:47→20:21)
[2020-01-05] MEDS: QUEtiapine 25 MG TABLET. PO SCH ×4 (10:47→20:21)
[2020-01-05] MEDS: CARBIDOPA/LEVODOPA 10/100MG TABLET PO SCH ×3 (10:48→20:19)
[2020-01-05] MEDS: ASCORBIC ACID 500 MG TABLET PO SCH (10:48)
[2020-01-05] MEDS: TIMOLOL 0.5% OPHTH SOLUTION 5ML BOTTLE. OU SCH ×2 (10:49→20:19)
--- NOTE | 2020-01-05 11:10 | NUR ---
Nursing note: Pt was allowed to sleep in until 1045 this morning. He was med compliant at that time and cooperative with his assessment. Pt continues to be very confused and disorganized. He is currently back to sleep in his bed. Will continue to monitor.
--- NOTE | 2020-01-05 15:25 | NUR ---
SW contacted pt , Margy and apologized profusely for not calling her for treatment team. SW did not write down the fact that she wanted a call and has noted to call her next as pt is going to be here. SW went over pt treatment team discussions and his behaviors to date. Pt was tearful to know that he got ahold of the psychiatrist in which ALONZO explained that pt did not harmful; however, pt dtr reports that he just never used to be that way. SW encouraged pt to check in with nursing and ALONZO will follow up with Margy on Thursday.
--- NOTE | 2020-01-05 15:28 | TX PLAN ---
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 Problems Active Problems: delusional visual hallucinations restless wandering Inactive Problems: medication compliant Pt Strengths/Limitations Ability for [place]: Poor Cognitive Functioning/Ability: Poor Communication Skills/Ability: Fair Financial Resources: Fair Insight/Judgement: Poor Intellectual Ability: Fair Physical Health: Fair Social Skills: Poor Stability in Family: Good Stability in School/Work: Poor Verbal Skills: Fair Discharge Criteria Discharge Criteria: No need for close observ., Adequate arrangements @DC, Improved behavior, Improved mood/thought Preliminary Discharge Plan Preliminary DC Plan: Current Living Arrange. Special Precautions Fall Risk: Low Initial D/C Plan Once pt is stable, he will discharge back to [facility] Identified Discharge Needs: Continued psych services Currently Utilized Resources Currently Utilized Resources/P: Primary Care Physician Identified Problems/Hx/Goals Objectives/Short-Term Goals Short Term Goals: Dec. Aggression, Dec. Outbursts, Dec. Symp. Depression, Imp roved Social Skills, Medication Stabilization Short Term Goals in Patient's: N/A Interventions/Frequency Staff Interventions/Frequency&: Psychiatrist to assess pt at least 3x per week. Blanket Inspector to assess pt at least 2x per week. Nursing to assess all care needs, medications and complete 15 minute checks daily. Encourage group participation or 1:1 engagement based off Activity Dept assessment and goals. 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 Pt is retired Education: Pt attended and got his B.S. Anthropology, Masters in Management and then attended school for respiratory therapy. Community Follow-up Mental health services Community Provider/Family Inpu: He continues to have a cognitive decline and needs an appropriate assessment completed. Treatment Plan Explained Patient/Clinical Rehab Specialist had this treatment plan explained to him/her as indicated by the signature below and has been given the opportunity to ask questions and make suggestions: Date: Patient/Clinical Rehab Specialist Signature: Patient/Clinical Rehab Specialist Decline: SARA Abdi January 05, 2020 15:28
--- NOTE | 2020-01-05 15:35 | TX PLAN ---
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 Problems Active Problems: delusional visual hallucinations restless wandering Inactive Problems: medication compliant Pt Strengths/Limitations Ability for [place]: Poor Cognitive Functioning/Ability: Poor Communication Skills/Ability: Fair Financial Resources: Fair Insight/Judgement: Poor Intellectual Ability: Fair Physical Health: Fair Social Skills: Poor Stability in Family: Good Stability in School/Work: Poor Verbal Skills: Fair Discharge Criteria Discharge Criteria: No need for close observ., Adequate arrangements @DC, Improved behavior, Improved mood/thought Preliminary Discharge Plan Preliminary DC Plan: Current Living Arrange. Special Precautions Fall Risk: Low Initial D/C Plan Once pt is stable, he will discharge back to [facility] Identified Discharge Needs: Continued psych services Currently Utilized Resources Currently Utilized Resources/P: Primary Care Physician Identified Problems/Hx/Goals Objectives/Short-Term Goals Short Term Goals: Dec. Aggression, Dec. Outbursts, Dec. Symp. Depression, Imp roved Social Skills, Medication Stabilization Short Term Goals in Patient's: N/A Interventions/Frequency Staff Interventions/Frequency&: Psychiatrist to assess pt at least 3x per week. Naval Marine Engineer to assess pt at least 2x per week. Nursing to assess all care needs, medications and complete 15 minute checks daily. Encourage group participation or 1:1 engagement based off Activity Dept assessment and goals. 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 Pt is retired Education: Pt attended and got his B.S. Anthropology, Masters in Management and then attended school for respiratory therapy. Community Follow-up Mental health services Community Provider/Family Inpu: He continues to have a cognitive decline and needs an appropriate assessment completed. Treatment Plan Explained Patient/Profile Saw Operator had this treatment plan explained to him/her as indicated by the signature below and has been given the opportunity to ask questions and make suggestions: Date: Patient/Profile Saw Operator Signature: Status Update Update Please note that pt had an initial treatment team on December 28. This is a follow up note from that team meeting. As of today (01/05/2020), pt is eating 75% of meals and sleeping on average 5 hours a night. Pt wanders the unit and continues to act as though he is a respiratory therapist/director. Pt has a flat affect but has periods of agitation when redirected. Pt has had a couple episodes of intrusiveness and one episode in which he grabbed the psychiatrist, who was unharmed. Pt is currently on Depakote ER 500mg daily and 125 q HS (VPA 59), and Seroquel 25 mg at 1300 and 37.5mg BID; an extra dosage of 25mg will be added roughly 1700. Pt Exelon patch dose will increase to 9.5mg. Pt will discharge back to [facility] once behaviors are stable. OS is for the latter part of the week after next (January 18). SARA VIVAS January 05, 2020 15:35
--- NOTE | 2020-01-05 15:53 | NUR ---
WEEKLY ACTIVITY THERAPY NOTE Date of Admission: 12/28/19 Date of AT Assessment: 12/30/19 Precipitating behaviors that initiated intake and admission: The patient grabbed a female patient and would not let go. Became combative with staff when attempting to separate. Goal aimed:to increase leisure engagement and socialization Initial Goal:Pt. will participate in at least three Activity Therapy groups before discharge. Weekly progress towards goal: achieved 3/3 Group participation level: moderate Weekly highlights: enjoyed treats an concessions on , listened to [employer] on Thu Behaviors observed: wanders, intrusive but redirectable, confused, restless, hard to understand Plan: repeat goal Beneficial adaptations:
[2020-01-05 16:20] VITALS: BP 133/83
--- NOTE | 2020-01-05 17:34 | NUR ---
Nursing note: Pt became increasing agitated and intrusive as he wandered the halls. PRN was given at that time. As soon as he took the medication, pt became angry, stood up from his chair and attempted to grab staff and the WOW. Pt was able to be redirected back to his chair. He is very confused at this time, appears to be conducting a meeting. Will continue to monitor.
[2020-01-05] MEDS: DIVALPROEX 125 MG CAP.SPRINK PO SCH (20:19)
[2020-01-05] MEDS: ACETAMINOPHEN 500 MG TABLET PO SCH (20:19)
[2020-01-05] MEDS: GABAPENTIN 300 MG CAPSULE. PO SCH (20:20)
[2020-01-05] MEDS: ATORVASTATIN CALCIUM 20 MG TABLET PO SCH (20:20)
[2020-01-05] MEDS: CYCLOBENZAPRINE 10 MG TABLET. PO SCH (20:21)
[2020-01-05] MEDS: MELATONIN 3 MG TABLET PO SCH (20:22)
--- NOTE | 2020-01-05 22:09 | PDOC ---
Exam Note: Michael Note: Please also refer to the separate dictated note~for this date of service dictated separately.~Patient seen individually. Discussed the patient with Nursing staff reviewed the chart.~Reviewed interim history and current functioning. Reviewed vital signs,~Labs/ Radiology~and current medications noted below. Continue current treatment with the changes noted in the dictated addendum note Assessment: Vital Signs/I&O: Vital Signs Date Time Temp Pulse Resp B/P (MAP) Pulse Ox O2 Delivery O2 Flow Rate FiO2 01/05/20 20:21 61 133/83 01/05/20 16:20 97.2 18 98 01/01/20 16:09 Room Air I & O 01/04/20 01/04/20 01/05/20 14:59 22:59 06:59 Intake Total 240 ml 580 ml Balance 240 ml 580 ml Current Medications: Meds: Current Medications Medications (Trade) Dose Ordered Sig/Gloria Route PRN Reason Start Time Stop Time Status Last Admin Dose Admin Sertraline HCl (Zoloft) 25 mg DAILY PO 01/05/20 09:00 01/07/20 21:00 01/05/20 10:47 Quetiapine Fumarate (SEROquel) 25 mg 1600 PO 01/05/20 16:00 01/05/20 16:19 I have reviewed the current psychotropics carefully including drug interactions. Risk benefit ratio favors no change other than as noted in my dictated progress note. Diagnosis: Problems: (1) Major neurocognitive disorder (2) Parkinson's disease (3) Dementia, vascular, with delusions (4) Dementia in Alzheimer's disease with delusions (5) Anxiety disorder (6) Impulse control disorder CAMERON ROSAS MD January 05, 2020 22:09
--- NOTE | 2020-01-05 23:57 | NUR ---
This evening pt was in hallway and social with others. He was very confused but was cooperative and took meds whole. At HS he went to bed without issues and has been sleeping.
[2020-01-06] MEDS: LEVOTHYROXINE 25 MCG TABLET. PO SCH (05:16)
[2020-01-06 06:06] VITALS: BP 128/72
--- NOTE | 2020-01-06 07:34 | PDOC ---
Exam Note: Michael Note: This note is a late entry for 01/04/2020 covers elements not covered in my initial note. Subjective: The patient was seen face to face in the evening. Nursing report was with Maris RBASHER. Discussed the patient with nursing staff in the evening reviewed the chart. Slept 3-1/4 hours previous night. He is confused, wandering into rooms of other residents. He is anxious, restless, obsessive. He was quite agitated, disruptive, had to be taken to the quiet hallways by nursing staff. I met with him there and as I was leaving he followed me out, difficult to redirect, grabbed the paperwork in my hand, grabbed my wrist, was trying to twist, difficult to redirect and nursing staff had to intervene. Review of Systems: No CV, GI/, Pulmonary, Eye, ENT system symptoms on review. As he held on to me he was muttering under his breath Leonela Big population. Mental Status Exam: Oriented to himself. Insight and judgment, recent and remote memory, attention and concentration, fund of knowledge is poor consistent with his diagnosis. Laboratory Data: Reviewed. 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 Anxiety disorder unspecified. Impulse control disorder unspecified. Rest unchanged. Plan: No change from initial note. Start Zoloft 25 mg a day for his mood, anxiety, obsessive, irritability and in 3 days increase to 50 mg mg a day. Rest unchanged for now. Assessment: Vital Signs/I&O: Vital Signs Date Time Temp Pulse Resp B/P (MAP) Pulse Ox O2 Delivery O2 Flow Rate FiO2 01/06/20 06:06 97.4 61 18 128/72 (90) 98 01/01/20 16:09 Room Air I & O 01/05/20 01/05/20 01/06/20 15:00 23:00 07:00 Intake Total 240 ml 360 ml Balance 240 ml 360 ml Current Medications: Meds: Current Medications Medications (Trade) Dose Ordered Sig/Gloria Route PRN Reason Start Time Stop Time Status Last Admin Dose Admin Sertraline HCl (Zoloft) 25 mg DAILY PO 01/05/20 09:00 01/07/20 21:00 01/05/20 10:47 Quetiapine Fumarate (SEROquel) 25 mg 1600 PO 01/05/20 16:00 01/05/20 16:19 I have reviewed the current psychotropics carefully including drug interactions. Risk benefit ratio favors no change other than as noted in my dictated progress note. Diagnosis: Problems: (1) Major neurocognitive disorder (2) Parkinson's disease (3) Dementia, vascular, with delusions (4) Dementia in Alzheimer's disease with delusions (5) Anxiety disorder (6) Impulse control disorder CAMERON ROSAS MD January 06, 2020 07:34
--- NOTE | 2020-01-06 07:51 | PDOC ---
Exam Note: Michael Note: This note is a late entry for 01/05/2020 covers elements not covered in my initial note. Subjective: The patient was seen face to face with the treatment team in the morning including Karina Yuan, and January (social work job titles), Serina, Activity Therapy with Gilma BRASHER. Reportedly he has been asking nursing staff if they want breathing treatments. 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 He has been wandering to the nursing station. Appetite 75%. Sleeping 5 hours average. He slept at 10 in the morning, less agitated later in the day, confused. Review of Systems: No CV, GI/, Pulmonary, Eye, ENT system symptoms on review. Reliability poor. Mental Status Exam: Oriented to himself. Insight and judgment, recent and remote memory, attention and concentration, fund of knowledge is poor consistent with his diagnosis. Laboratory Data: Reviewed. 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 Anxiety disorder unspecified. Impulse control disorder unspecified. Rest unchanged. Plan: No change from initial note. We discussed discharge plans back to [facility] once stable. We will add Seroquel 25 mg at 4 p.m. Increase Exelon patch from 4.6 mg a day to 9.5 mg a day. Considering his diagnosis of possibly Lewy body dementia he gets Seroquel 37.5 mg 9 a.m. and 9 p.m. and we will 4 p.m. 25 mg to help with his evening owning. Assessment: Vital Signs/I&O: Vital Signs Date Time Temp Pulse Resp B/P (MAP) Pulse Ox O2 Delivery O2 Flow Rate FiO2 01/06/20 06:06 97.4 61 18 128/72 (90) 98 01/01/20 16:09 Room Air I & O 01/05/20 01/05/20 01/06/20 14:59 22:59 06:59 Intake Total 240 ml 360 ml Balance 240 ml 360 ml Current Medications: Meds: Current Medications Medications (Trade) Dose Ordered Sig/Gloria Route PRN Reason Start Time Stop Time Status Last Admin Dose Admin Sertraline HCl (Zoloft) 25 mg DAILY PO 01/05/20 09:00 01/07/20 21:00 01/05/20 10:47 Quetiapine Fumarate (SEROquel) 25 mg 1600 PO 01/05/20 16:00 01/05/20 16:19 I have reviewed the current psychotropics carefully including drug interactions. Risk benefit ratio favors no change other than as noted in my dictated progress note. Diagnosis: Problems: (1) Major neurocognitive disorder (2) Parkinson's disease (3) Dementia, vascular, with delusions (4) Dementia in Alzheimer's disease with delusions (5) Anxiety disorder (6) Impulse control disorder CAMERON ROSAS MD January 06, 2020 07:51
[2020-01-06] MEDS: DOCUSATE SODIUM 100 MG CAPSULE PO SCH (08:22)
[2020-01-06] MEDS: TIMOLOL 0.5% OPHTH SOLUTION 5ML BOTTLE. OU SCH ×2 (08:22→19:50)
[2020-01-06] MEDS: DIVALPROEX ER 500 MG TAB.ER.24H PO SCH (08:23)
[2020-01-06] MEDS: CARBIDOPA/LEVODOPA 10/100MG TABLET PO SCH ×3 (08:23→19:41)
[2020-01-06] MEDS: SERTRALINE 25 MG TABLET. PO SCH (08:23)
[2020-01-06] MEDS: ASCORBIC ACID 500 MG TABLET PO SCH (08:23)
[2020-01-06] MEDS: POTASSIUM CHLORIDE 20 MEQ TABLET.ER. PO SCH (08:23)
[2020-01-06] MEDS: QUEtiapine 25 MG TABLET. PO SCH ×4 (08:23→19:42)
[2020-01-06] MEDS: METOPROLOL TART IMMED RELEASE 25 MG TABLET PO SCH ×2 (08:24→19:45)
[2020-01-06] MEDS: FUROSEMIDE 40 MG TABLET PO SCH (08:24)
[2020-01-06] MEDS: SENNOSIDES/DOCUSATE 8.6/50MG TABLET. PO SCH (08:24)
[2020-01-06] MEDS: APIXABAN 5 MG TABLET. PO SCH ×2 (08:24→19:41)
[2020-01-06] MEDS: RIVASTIGMINE 9.5MG PATCH. TD SCH (08:31)
--- NOTE | 2020-01-06 10:26 | NUR ---
Patient is located in dining room at time of assessment and medication administration. Patient is quiet, flat, but compliant with medications whole with water and assessment. Patient has no complaints of pain at this time. Will continue to monitor.
[2020-01-06 15:33] VITALS: BP 101/62
[2020-01-06 15:40] LABS: BASO # 0.1 x10^3/uL (0.0-0.2); BASO % 1 % (0-3); EOS # 0.3 x10^3/uL (0.0-0.7); EOS % 4 % (0-3); HEMATOCRIT 44.4 % (39.0-53.0); HEMOGLOBIN 15.1 g/dL (13.0-17.5); LYMPH # 2.4 x10^3/uL (1.0-4.8); LYMPH % 35 % (24-48); MEAN CORPUSCULAR HEMOGLOBIN 32 pg (25-35); MEAN CORPUSCULAR HGB CONC 34 g/dL (31-37); MEAN CORPUSCULAR VOLUME 94 fL (79-100); MONO # 0.5 x10^3/uL (0.0-1.1); MONO % 8 % (0-9); NEUT # 3.6 x10^3uL (1.8-7.7); NEUT % 52 % (31-73); PLATELET COUNT 134 x10^3/uL (140-400); RED BLOOD COUNT 4.75 x10^6/uL (4.30-5.70); RED CELL DISTRIBUTION WIDTH 14.1 % (11.5-14.5)
[2020-01-06 15:52] LABS: ALBUMIN 3.3 g/dL (3.4-5.0); ALBUMIN/GLOBULIN RATIO 0.9 (1.0-1.7); CALCIUM 8.8 mg/dL (8.5-10.1); CREATININE 0.9 mg/dL (0.7-1.3); GFR 83.7; POTASSIUM 4.1 mmol/L (3.5-5.1); TOTAL BILIRUBIN 0.6 mg/dL (0.2-1.0)
[2020-01-06] MEDS: DIVALPROEX 125 MG CAP.SPRINK PO SCH (19:41)
[2020-01-06] MEDS: GABAPENTIN 300 MG CAPSULE. PO SCH (19:42)
[2020-01-06] MEDS: ACETAMINOPHEN 500 MG TABLET PO SCH (19:44)
[2020-01-06] MEDS: CYCLOBENZAPRINE 10 MG TABLET. PO SCH (19:45)
[2020-01-06] MEDS: MELATONIN 3 MG TABLET PO SCH (19:46)
[2020-01-06] MEDS: ATORVASTATIN CALCIUM 20 MG TABLET PO SCH (19:46)
[2020-01-06] MEDS: traZODone 100 MG TABLET. PO PRN (19:46)
--- NOTE | 2020-01-06 21:53 | PDOC ---
Exam Note: Michael Note: Please also refer to the separate dictated note~for this date of service dictated separately.~Patient seen individually. Discussed the patient with Nursing staff reviewed the chart.~Reviewed interim history and current functioning. Reviewed vital signs,~Labs/ Radiology~and current medications noted below. Continue current treatment with the changes noted in the dictated addendum note Assessment: Vital Signs/I&O: Vital Signs Date Time Temp Pulse Resp B/P (MAP) Pulse Ox O2 Delivery O2 Flow Rate FiO2 01/06/20 20:53 97.4 97 01/06/20 19:45 62 101/62 01/06/20 15:33 18 01/01/20 16:09 Room Air I & O 01/05/20 01/05/20 01/06/20 15:00 23:00 07:00 Intake Total 240 ml 360 ml Balance 240 ml 360 ml Labs: Laboratory Tests Test 01/06/20 15:28 White Blood Count 7.0 x10^3/uL (4.0-11.0) Red Blood Count 4.75 x10^6/uL (4.30-5.70) Hemoglobin 15.1 g/dL (13.0-17.5) Hematocrit 44.4 % (39.0-53.0) Mean Corpuscular Volume 94 fL (79-100) Mean Corpuscular Hemoglobin 32 pg (25-35) Mean Corpuscular Hemoglobin Concent 34 g/dL (31-37) Red Cell Distribution Width 14.1 % (11.5-14.5) Platelet Count 134 x10^3/uL (140-400) L Neutrophils (%) (Auto) 52 % (31-73) Lymphocytes (%) (Auto) 35 % (24-48) Monocytes (%) (Auto) 8 % (0-9) Eosinophils (%) (Auto) 4 % (0-3) H Basophils (%) (Auto) 1 % (0-3) Neutrophils # (Auto) 3.6 x10^3uL (1.8-7.7) Lymphocytes # (Auto) 2.4 x10^3/uL (1.0-4.8) Monocytes # (Auto) 0.5 x10^3/uL (0.0-1.1) Eosinophils # (Auto) 0.3 x10^3/uL (0.0-0.7) Basophils # (Auto) 0.1 x10^3/uL (0.0-0.2) Sodium Level 141 mmol/L (136-145) Potassium Level 4.1 mmol/L (3.5-5.1) Chloride Level 103 mmol/L (98-107) Carbon Dioxide Level 33 mmol/L (21-32) H Anion Gap 5 (6-14) L Blood Urea Nitrogen 14 mg/dL (8-26) Creatinine 0.9 mg/dL (0.7-1.3) Estimated GFR (Cockcroft-Gault) 83.7 BUN/Creatinine Ratio 16 (6-20) Glucose Level 108 mg/dL (70-99) H Calcium Level 8.8 mg/dL (8.5-10.1) Total Bilirubin 0.6 mg/dL (0.2-1.0) Aspartate Amino Transferase (AST) 23 U/L (15-37) Alanine Aminotransferase (ALT) 13 U/L (16-63) L Alkaline Phosphatase 89 U/L (46-116) Total Protein 7.0 g/dL (6.4-8.2) Albumin 3.3 g/dL (3.4-5.0) L Albumin/Globulin Ratio 0.9 (1.0-1.7) L Current Medications: Meds: Current Medications Medications (Trade) Dose Ordered Sig/Gloria Route PRN Reason Start Time Stop Time Status Last Admin Dose Admin Rivastigmine (Exelon) 1 patch DAILY TD 01/06/20 09:00 01/06/20 08:31 I have reviewed the current psychotropics carefully including drug interactions. Risk benefit ratio favors no change other than as noted in my dictated progress note. Diagnosis: Problems: (1) Major neurocognitive disorder (2) Parkinson's disease (3) Dementia, vascular, with delusions (4) Dementia in Alzheimer's disease with delusions (5) Anxiety disorder (6) Impulse control disorder CAMERON ROSAS MD January 06, 2020 21:53
--- NOTE | 2020-01-06 22:00 | NUR ---
Patient is in the hallway on assumption of care, wandering the unit. Grabbed a BRAILLE DUPLICATING MACHINE OPERATOR by the arm and tried to walk down the hallway with her. He is very intrusive, repeatedly going in to other patient's rooms. Somewhat resistant to redirection, but able to be redirected after several tries. Compliant with assessments and took his medications whole. PRN Zydis and Trazadone given with HS meds. After medication administration, patient was directed back to his room. He began disrobing at that point and kept coming back out in to the hallway with no pants on. Brought to the bathroom, and then dressed in a onesie with a staff assist of 2. Patient put to bed, and is appears to be sleeping comfortably at present time.
[2020-01-07] MEDS: LEVOTHYROXINE 25 MCG TABLET. PO SCH (05:58)
[2020-01-07 06:15] VITALS: BP 154/91
[2020-01-07] MEDS: RIVASTIGMINE 9.5MG PATCH. TD SCH (08:17)
[2020-01-07] MEDS: SENNOSIDES/DOCUSATE 8.6/50MG TABLET. PO SCH (08:18)
[2020-01-07] MEDS: TIMOLOL 0.5% OPHTH SOLUTION 5ML BOTTLE. OU SCH ×2 (08:18→20:00)
[2020-01-07] MEDS: FUROSEMIDE 40 MG TABLET PO SCH (08:18)
[2020-01-07] MEDS: SERTRALINE 25 MG TABLET. PO SCH (08:18)
[2020-01-07] MEDS: ASCORBIC ACID 500 MG TABLET PO SCH (08:18)
[2020-01-07] MEDS: APIXABAN 5 MG TABLET. PO SCH ×2 (08:18→20:04)
[2020-01-07] MEDS: POTASSIUM CHLORIDE 20 MEQ TABLET.ER. PO SCH (08:18)
[2020-01-07] MEDS: QUEtiapine 25 MG TABLET. PO SCH ×4 (08:19→20:05)
[2020-01-07] MEDS: DIVALPROEX ER 500 MG TAB.ER.24H PO SCH (08:19)
[2020-01-07] MEDS: METOPROLOL TART IMMED RELEASE 25 MG TABLET PO SCH ×2 (08:20→20:02)
[2020-01-07] MEDS: CARBIDOPA/LEVODOPA 10/100MG TABLET PO SCH ×3 (08:20→20:06)
[2020-01-07] MEDS: DOCUSATE SODIUM 100 MG CAPSULE PO SCH (08:20)
--- NOTE | 2020-01-07 08:56 | PDOC ---
Exam Note: Michael Note: This note is a late entry for 01/06/2020 covers elements not covered in my initial note. Subjective: The patient was seen face to face in the evening of 01/06/2020. Nursing report was with Tamica BRASHER. He slept 7-3/4 hours previous night. Overall the patient remains confused, less agitated, paranoid. Review of Systems: No CV, GI/, Pulmonary, Eye, ENT system symptoms on review. He kept following me around the unit after I met with him individually. Mental Status Exam: Oriented to himself. Insight and judgment, recent and remote memory, attention and concentration, fund of knowledge is poor consistent with his diagnosis. Laboratory Data: Reviewed. 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 Anxiety disorder unspecified. Impulse control disorder unspecified. Rest unchanged. Plan: No change from initial note. We are increasing the Exelon patch. Maintain Depakote, level is therapeutic. Continue melatonin, Seroquel along wit h Zyprexa p.r.n., trazodone p.r.n. Assessment: Vital Signs/I&O: Vital Signs Date Time Temp Pulse Resp B/P (MAP) Pulse Ox O2 Delivery O2 Flow Rate FiO2 01/07/20 08:35 97.3 98 01/07/20 08:20 62 154/91 01/07/20 06:15 16 01/01/20 16:09 Room Air I & O 01/06/20 01/06/20 01/07/20 14:59 22:59 06:59 Intake Total 480 ml 240 ml Balance 480 ml 240 ml Labs: Laboratory Tests Test 01/06/20 15:28 White Blood Count 7.0 x10^3/uL (4.0-11.0) Red Blood Count 4.75 x10^6/uL (4.30-5.70) Hemoglobin 15.1 g/dL (13.0-17.5) Hematocrit 44.4 % (39.0-53.0) Mean Corpuscular Volume 94 fL (79-100) Mean Corpuscular Hemoglobin 32 pg (25-35) Mean Corpuscular Hemoglobin Concent 34 g/dL (31-37) Red Cell Distribution Width 14.1 % (11.5-14.5) Platelet Count 134 x10^3/uL (140-400) L Neutrophils (%) (Auto) 52 % (31-73) Lymphocytes (%) (Auto) 35 % (24-48) Monocytes (%) (Auto) 8 % (0-9) Eosinophils (%) (Auto) 4 % (0-3) H Basophils (%) (Auto) 1 % (0-3) Neutrophils # (Auto) 3.6 x10^3uL (1.8-7.7) Lymphocytes # (Auto) 2.4 x10^3/uL (1.0-4.8) Monocytes # (Auto) 0.5 x10^3/uL (0.0-1.1) Eosinophils # (Auto) 0.3 x10^3/uL (0.0-0.7) Basophils # (Auto) 0.1 x10^3/uL (0.0-0.2) Sodium Level 141 mmol/L (136-145) Potassium Level 4.1 mmol/L (3.5-5.1) Chloride Level 103 mmol/L (98-107) Carbon Dioxide Level 33 mmol/L (21-32) H Anion Gap 5 (6-14) L Blood Urea Nitrogen 14 mg/dL (8-26) Creatinine 0.9 mg/dL (0.7-1.3) Estimated GFR (Cockcroft-Gault) 83.7 BUN/Creatinine Ratio 16 (6-20) Glucose Level 108 mg/dL (70-99) H Calcium Level 8.8 mg/dL (8.5-10.1) Total Bilirubin 0.6 mg/dL (0.2-1.0) Aspartate Amino Transferase (AST) 23 U/L (15-37) Alanine Aminotransferase (ALT) 13 U/L (16-63) L Alkaline Phosphatase 89 U/L (46-116) Total Protein 7.0 g/dL (6.4-8.2) Albumin 3.3 g/dL (3.4-5.0) L Albumin/Globulin Ratio 0.9 (1.0-1.7) L Current Medications: Meds: Current Medications Medications (Trade) Dose Ordered Sig/Gloria Route PRN Reason Start Time Stop Time Status Last Admin Dose Admin Rivastigmine (Exelon) 1 patch DAILY TD 01/06/20 09:00 01/07/20 08:17 I have reviewed the current psychotropics carefully including drug interactions. Risk benefit ratio favors no change other than as noted in my dictated progress note. 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
--- NOTE | 2020-01-07 09:45 | NUR ---
Patient compliant with medication. Patient thinks i am his son that is a doctor. Patient calm at this time.
[2020-01-07 15:29] VITALS: BP 98/64
[2020-01-07] MEDS: CYCLOBENZAPRINE 10 MG TABLET. PO SCH (20:01)
[2020-01-07] MEDS: ATORVASTATIN CALCIUM 20 MG TABLET PO SCH (20:02)
[2020-01-07] MEDS: DIVALPROEX 125 MG CAP.SPRINK PO SCH (20:03)
[2020-01-07] MEDS: GABAPENTIN 300 MG CAPSULE. PO SCH (20:04)
[2020-01-07] MEDS: MELATONIN 3 MG TABLET PO SCH (20:05)
[2020-01-07] MEDS: ACETAMINOPHEN 500 MG TABLET PO SCH (20:06)
[2020-01-07] MEDS: traZODone 100 MG TABLET. PO PRN (20:07)
--- NOTE | 2020-01-07 21:58 | PDOC ---
Exam Note: Michael Note: Please also refer to the separate dictated note~for this date of service dictated separately.~Patient seen individually. Discussed the patient with Nursing staff reviewed the chart.~Reviewed interim history and current functioning. Reviewed vital signs,~Labs/ Radiology~and current medications noted below. Continue current treatment with the changes noted in the dictated addendum note Assessment: Vital Signs/I&O: Vital Signs Date Time Temp Pulse Resp B/P (MAP) Pulse Ox O2 Delivery O2 Flow Rate FiO2 01/07/20 21:00 97.9 96 01/07/20 20:02 60 98/64 01/07/20 15:29 16 01/01/20 16:09 Room Air I & O 01/06/20 01/06/20 01/07/20 15:00 23:00 07:00 Intake Total 480 ml 240 ml Balance 480 ml 240 ml Current Medications: I have reviewed the current psychotropics carefully including drug interactions. Risk benefit ratio favors no change other than as noted in my dictated progress note. 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
--- NOTE | 2020-01-07 23:00 | NUR ---
Patient is wandering around the unit on assumption of care. He is intrusive, constantly going in to other patients rooms. Resistant to redirection. Brought into the day room for closer supervision. Pacing back and forth, repeatedly sitting down and then getting up again moments later. Patient very suspicious of medications tonight, stating "those are wrong". After several attempts, patient finally compliant with taking his medications whole. Was compliant with HS cares, and currently appears to be sleeping comfortably in his bed. Will continue to monitor.
[2020-01-08] MEDS: LEVOTHYROXINE 25 MCG TABLET. PO SCH (04:54)
[2020-01-08 05:34] VITALS: BP 155/82
[2020-01-08 08:50] LABS: BASO # 0.1 x10^3/uL (0.0-0.2); BASO % 1 % (0-3); EOS # 0.2 x10^3/uL (0.0-0.7); EOS % 4 % (0-3); HEMATOCRIT 42.5 % (39.0-53.0); HEMOGLOBIN 14.8 g/dL (13.0-17.5); LYMPH # 2.4 x10^3/uL (1.0-4.8); LYMPH % 38 % (24-48); MEAN CORPUSCULAR HEMOGLOBIN 32 pg (25-35); MEAN CORPUSCULAR HGB CONC 35 g/dL (31-37); MEAN CORPUSCULAR VOLUME 91 fL (79-100); MONO # 0.6 x10^3/uL (0.0-1.1); MONO % 9 % (0-9); NEUT % 48 % (31-73); PLATELET COUNT 125 x10^3/uL (140-400); RED BLOOD COUNT 4.65 x10^6/uL (4.30-5.70); RED CELL DISTRIBUTION WIDTH 14.1 % (11.5-14.5); WHITE BLOOD COUNT 6.3 x10^3/uL (4.0-11.0)
[2020-01-08 09:57] LABS: ALBUMIN 3.1 g/dL (3.4-5.0); CALCIUM 8.6 mg/dL (8.5-10.1); CREATININE 0.8 mg/dL (0.7-1.3); GFR 95.8; POTASSIUM 3.4 mmol/L (3.5-5.1); TOTAL BILIRUBIN 0.6 mg/dL (0.2-1.0); TOTAL PROTEIN 6.3 g/dL (6.4-8.2)
[2020-01-08] MEDS: ASCORBIC ACID 500 MG TABLET PO SCH (10:02)
[2020-01-08] MEDS: DIVALPROEX ER 500 MG TAB.ER.24H PO SCH (10:02)
[2020-01-08] MEDS: DOCUSATE SODIUM 100 MG CAPSULE PO SCH (10:02)
[2020-01-08] MEDS: SERTRALINE 25 MG TABLET. PO SCH (10:02)
[2020-01-08] MEDS: APIXABAN 5 MG TABLET. PO SCH ×2 (10:02→19:52)
[2020-01-08] MEDS: METOPROLOL TART IMMED RELEASE 25 MG TABLET PO SCH ×2 (10:02→19:52)
[2020-01-08] MEDS: TIMOLOL 0.5% OPHTH SOLUTION 5ML BOTTLE. OU SCH ×2 (10:03→19:51)
[2020-01-08] MEDS: CARBIDOPA/LEVODOPA 10/100MG TABLET PO SCH ×3 (10:03→19:55)
[2020-01-08] MEDS: RIVASTIGMINE 9.5MG PATCH. TD SCH (10:03)
[2020-01-08] MEDS: QUEtiapine 25 MG TABLET. PO SCH ×4 (10:03→19:54)
[2020-01-08] MEDS: POTASSIUM CHLORIDE 20 MEQ TABLET.ER. PO SCH (10:03)
[2020-01-08] MEDS: FUROSEMIDE 40 MG TABLET PO SCH (10:03)
[2020-01-08] MEDS: SENNOSIDES/DOCUSATE 8.6/50MG TABLET. PO SCH (10:03)
--- NOTE | 2020-01-08 10:49 | NUR ---
Patient difficult to arouse. patient had a small bowel movement today. Patient needed much redirection to take medication. Patient willing to go to dy room to socialize.
[2020-01-08 16:23] VITALS: BP 123/81
[2020-01-08] MEDS: ATORVASTATIN CALCIUM 20 MG TABLET PO SCH (19:52)
[2020-01-08] MEDS: GABAPENTIN 300 MG CAPSULE. PO SCH (19:52)
[2020-01-08] MEDS: CYCLOBENZAPRINE 10 MG TABLET. PO SCH (19:53)
[2020-01-08] MEDS: traZODone 100 MG TABLET. PO PRN (19:53)
[2020-01-08] MEDS: DIVALPROEX 125 MG CAP.SPRINK PO SCH (19:53)
[2020-01-08] MEDS: MELATONIN 3 MG TABLET PO SCH (19:55)
[2020-01-08] MEDS: ACETAMINOPHEN 500 MG TABLET PO SCH (19:55)
--- NOTE | 2020-01-08 22:08 | PDOC ---
Exam Note: Michael Note: Please also refer to the separate dictated note~for this date of service dictated separately.~Patient seen individually. Discussed the patient with Nursing staff reviewed the chart.~Reviewed interim history and current functioning. Reviewed vital signs,~Labs/ Radiology~and current medications noted below. Continue current treatment with the changes noted in the dictated addendum note Assessment: Vital Signs/I&O: Vital Signs Date Time Temp Pulse Resp B/P (MAP) Pulse Ox O2 Delivery O2 Flow Rate FiO2 01/08/20 21:08 98.2 97 01/08/20 19:52 60 123/81 01/08/20 05:34 16 I & O 01/07/20 01/07/20 01/08/20 15:00 23:00 07:00 Intake Total 960 ml 240 ml Balance 960 ml 240 ml Labs: Laboratory Tests Test 01/08/20 08:25 White Blood Count 6.3 x10^3/uL (4.0-11.0) Red Blood Count 4.65 x10^6/uL (4.30-5.70) Hemoglobin 14.8 g/dL (13.0-17.5) Hematocrit 42.5 % (39.0-53.0) Mean Corpuscular Volume 91 fL (79-100) Mean Corpuscular Hemoglobin 32 pg (25-35) Mean Corpuscular Hemoglobin Concent 35 g/dL (31-37) Red Cell Distribution Width 14.1 % (11.5-14.5) Platelet Count 125 x10^3/uL (140-400) L Neutrophils (%) (Auto) 48 % (31-73) Lymphocytes (%) (Auto) 38 % (24-48) Monocytes (%) (Auto) 9 % (0-9) Eosinophils (%) (Auto) 4 % (0-3) H Basophils (%) (Auto) 1 % (0-3) Neutrophils # (Auto) 3.0 x10^3uL (1.8-7.7) Lymphocytes # (Auto) 2.4 x10^3/uL (1.0-4.8) Monocytes # (Auto) 0.6 x10^3/uL (0.0-1.1) Eosinophils # (Auto) 0.2 x10^3/uL (0.0-0.7) Basophils # (Auto) 0.1 x10^3/uL (0.0-0.2) Sodium Level 143 mmol/L (136-145) Potassium Level 3.4 mmol/L (3.5-5.1) L Chloride Level 106 mmol/L (98-107) Carbon Dioxide Level 33 mmol/L (21-32) H Anion Gap 4 (6-14) L Blood Urea Nitrogen 15 mg/dL (8-26) Creatinine 0.8 mg/dL (0.7-1.3) Estimated GFR (Cockcroft-Gault) 95.8 BUN/Creatinine Ratio 19 (6-20) Glucose Level 103 mg/dL (70-99) H Calcium Level 8.6 mg/dL (8.5-10.1) Total Bilirubin 0.6 mg/dL (0.2-1.0) Aspartate Amino Transferase (AST) 18 U/L (15-37) Alanine Aminotransferase (ALT) 20 U/L (16-63) Alkaline Phosphatase 71 U/L (46-116) Total Protein 6.3 g/dL (6.4-8.2) L Albumin 3.1 g/dL (3.4-5.0) L Albumin/Globulin Ratio 1.0 (1.0-1.7) Current Medications: Meds: Current Medications Medications (Trade) Dose Ordered Sig/Gloria Route PRN Reason Start Time Stop Time Status Last Admin Dose Admin Sertraline HCl (Zoloft) 50 mg DAILY PO 01/08/20 09:00 01/08/20 10:02 Quetiapine Fumarate (SEROquel) 50 mg BID PO 01/08/20 21:00 01/08/20 19:54 I have reviewed the current psychotropics carefully including drug interactions. Risk benefit ratio favors no change other than as noted in my dictated progress note. 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
--- NOTE | 2020-01-08 23:01 | NUR ---
Patient is walking around the unit on assumption of care. Disorganized, intrusive. Going in to other patients rooms and can be difficult to redirect. He was less suspicious of his medications this evening, and took them all whole floated in pudding. Compliant with assessments and HS cares. No agitation this shift. No complaints of pain or discomfort. Denies SI/HI. Will continue to monitor.
[2020-01-09] MEDS: LEVOTHYROXINE 25 MCG TABLET. PO SCH (05:06)
[2020-01-09 06:20] VITALS: BP 146/82
--- NOTE | 2020-01-09 07:59 | PDOC ---
Exam Note: Michael Note: This note is a late entry for 01/07/2020 covers elements not covered in my initial note. Subjective: The patient was seen face to face in the evening of 01/07/2020. Nursing report was with Luis BRASHER. He slept 5-1/2 hours previous night. He was aggressive previous night, done better during the day on 01/07/2020. Review of Systems: No CV, GI/, Pulmonary, Eye, ENT system symptoms on review. Mental Status Exam: Oriented to himself. Insight and judgment, recent and remote memory, attention and concentration, fund of knowledge is poor consistent with his diagnosis. Laboratory Data: Reviewed. 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 Anxiety disorder unspecified. Impulse control disorder unspecified. Rest unchanged. Plan: No change from initial note. Assessment: Vital Signs/I&O: Vital Signs Date Time Temp Pulse Resp B/P (MAP) Pulse Ox O2 Delivery O2 Flow Rate FiO2 01/09/20 06:20 97.9 60 18 146/82 (103) 98 I & O 01/08/20 01/08/20 01/09/20 15:00 23:00 07:00 Intake Total 480 ml 360 ml Balance 480 ml 360 ml Labs: Laboratory Tests Test 01/08/20 08:25 White Blood Count 6.3 x10^3/uL (4.0-11.0) Red Blood Count 4.65 x10^6/uL (4.30-5.70) Hemoglobin 14.8 g/dL (13.0-17.5) Hematocrit 42.5 % (39.0-53.0) Mean Corpuscular Volume 91 fL (79-100) Mean Corpuscular Hemoglobin 32 pg (25-35) Mean Corpuscular Hemoglobin Concent 35 g/dL (31-37) Red Cell Distribution Width 14.1 % (11.5-14.5) Platelet Count 125 x10^3/uL (140-400) L Neutrophils (%) (Auto) 48 % (31-73) Lymphocytes (%) (Auto) 38 % (24-48) Monocytes (%) (Auto) 9 % (0-9) Eosinophils (%) (Auto) 4 % (0-3) H Basophils (%) (Auto) 1 % (0-3) Neutrophils # (Auto) 3.0 x10^3uL (1.8-7.7) Lymphocytes # (Auto) 2.4 x10^3/uL (1.0-4.8) Monocytes # (Auto) 0.6 x10^3/uL (0.0-1.1) Eosinophils # (Auto) 0.2 x10^3/uL (0.0-0.7) Basophils # (Auto) 0.1 x10^3/uL (0.0-0.2) Sodium Level 143 mmol/L (136-145) Potassium Level 3.4 mmol/L (3.5-5.1) L Chloride Level 106 mmol/L (98-107) Carbon Dioxide Level 33 mmol/L (21-32) H Anion Gap 4 (6-14) L Blood Urea Nitrogen 15 mg/dL (8-26) Creatinine 0.8 mg/dL (0.7-1.3) Estimated GFR (Cockcroft-Gault) 95.8 BUN/Creatinine Ratio 19 (6-20) Glucose Level 103 mg/dL (70-99) H Calcium Level 8.6 mg/dL (8.5-10.1) Total Bilirubin 0.6 mg/dL (0.2-1.0) Aspartate Amino Transferase (AST) 18 U/L (15-37) Alanine Aminotransferase (ALT) 20 U/L (16-63) Alkaline Phosphatase 71 U/L (46-116) Total Protein 6.3 g/dL (6.4-8.2) L Albumin 3.1 g/dL (3.4-5.0) L Albumin/Globulin Ratio 1.0 (1.0-1.7) Current Medications: Meds: Current Medications Medications (Trade) Dose Ordered Sig/Gloria Route PRN Reason Start Time Stop Time Status Last Admin Dose Admin Sertraline HCl (Zoloft) 50 mg DAILY PO 01/08/20 09:00 01/08/20 10:02 Quetiapine Fumarate (SEROquel) 50 mg BID PO 01/08/20 21:00 01/08/20 19:54 I have reviewed the current psychotropics carefully including drug interactions. Risk benefit ratio favors no change other than as noted in my dictated progress note. 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
[2020-01-09] MEDS: ASCORBIC ACID 500 MG TABLET PO SCH (08:20)
[2020-01-09] MEDS: DIVALPROEX ER 500 MG TAB.ER.24H PO SCH (08:21)
[2020-01-09] MEDS: APIXABAN 5 MG TABLET. PO SCH ×2 (08:21→20:06)
[2020-01-09] MEDS: QUEtiapine 25 MG TABLET. PO SCH ×4 (08:21→20:06)
[2020-01-09] MEDS: CARBIDOPA/LEVODOPA 10/100MG TABLET PO SCH ×3 (08:21→20:08)
[2020-01-09] MEDS: POTASSIUM CHLORIDE 20 MEQ TABLET.ER. PO SCH (08:21)
[2020-01-09] MEDS: SERTRALINE 25 MG TABLET. PO SCH (08:21)
[2020-01-09] MEDS: SENNOSIDES/DOCUSATE 8.6/50MG TABLET. PO SCH (08:22)
[2020-01-09] MEDS: METOPROLOL TART IMMED RELEASE 25 MG TABLET PO SCH ×2 (08:22→20:07)
[2020-01-09] MEDS: DOCUSATE SODIUM 100 MG CAPSULE PO SCH (08:22)
[2020-01-09] MEDS: FUROSEMIDE 40 MG TABLET PO SCH (08:22)
[2020-01-09] MEDS: RIVASTIGMINE 9.5MG PATCH. TD SCH (08:25)
[2020-01-09] MEDS: TIMOLOL 0.5% OPHTH SOLUTION 5ML BOTTLE. OU SCH ×2 (09:00→20:06)
[2020-01-09 10:20] LABS: ALBUMIN 3.4 g/dL (3.4-5.0); ALBUMIN/GLOBULIN RATIO 0.9 (1.0-1.7); CALCIUM 9.1 mg/dL (8.5-10.1); CREATININE 0.8 mg/dL (0.7-1.3); GFR 95.8; POTASSIUM 3.7 mmol/L (3.5-5.1); TOTAL BILIRUBIN 0.5 mg/dL (0.2-1.0); TOTAL PROTEIN 7.1 g/dL (6.4-8.2)
[2020-01-09 15:44] VITALS: BP 131/79
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
[2020-01-09 19:14] LABS: CLARITY,URINE CLEAR; COLOR,URINE YELLOW
[2020-01-09 19:15] LABS: BILIRUBIN,URINE NEG (NEG); GLUCOSE,URINE NEG (NEG); NITRITE,URINE NEG (NEG)
[2020-01-09 19:18] LABS: BACTERIA,URINE MOD /HPF (0-FEW); RBC,URINE 0 /HPF (0-2); SQUAMOUS EPITHELIAL CELL,UR OCC /LPF; WBC,URINE 0 /HPF (0-4)
[2020-01-09] MEDS: GABAPENTIN 300 MG CAPSULE. PO SCH (20:06)
[2020-01-09] MEDS: DIVALPROEX 125 MG CAP.SPRINK PO SCH (20:07)
[2020-01-09] MEDS: traZODone 100 MG TABLET. PO PRN (20:07)
[2020-01-09] MEDS: ACETAMINOPHEN 500 MG TABLET PO SCH (20:07)
[2020-01-09] MEDS: CYCLOBENZAPRINE 10 MG TABLET. PO SCH (20:07)
[2020-01-09] MEDS: MELATONIN 3 MG TABLET PO SCH (20:07)
[2020-01-09] MEDS: ATORVASTATIN CALCIUM 20 MG TABLET PO SCH (20:08)
--- NOTE | 2020-01-09 21:21 | NUR ---
Pt wandering in hallway and in/out of other pt's rooms at shift change. Pt confused, resistive with re-direction and cares, and disorganized. PRN Trazodone administered at HS. Pt cooperative but disorganized during assessment and compliant with medications administered whole.
--- NOTE | 2020-01-09 22:07 | PDOC ---
Exam Note: Michael Note: Please also refer to the separate dictated note~for this date of service dictated separately.~Patient seen individually. Discussed the patient with Nursing staff reviewed the chart.~Reviewed interim history and current functioning. Reviewed vital signs,~Labs/ Radiology~and current medications noted below. Continue current treatment with the changes noted in the dictated addendum note Assessment: Vital Signs/I&O: Vital Signs Date Time Temp Pulse Resp B/P (MAP) Pulse Ox O2 Delivery O2 Flow Rate FiO2 01/09/20 20:07 81 131/79 01/09/20 18:34 98.2 01/09/20 15:44 20 96 I & O 01/08/20 01/08/20 01/09/20 15:00 23:00 07:00 Intake Total 480 ml 360 ml Balance 480 ml 360 ml Labs: Laboratory Tests Test 01/09/20 09:50 01/09/20 18:40 Sodium Level 142 mmol/L (136-145) Potassium Level 3.7 mmol/L (3.5-5.1) Chloride Level 104 mmol/L (98-107) Carbon Dioxide Level 35 mmol/L (21-32) H Anion Gap 3 (6-14) L Blood Urea Nitrogen 16 mg/dL (8-26) Creatinine 0.8 mg/dL (0.7-1.3) Estimated GFR (Cockcroft-Gault) 95.8 BUN/Creatinine Ratio 20 (6-20) Glucose Level 93 mg/dL (70-99) Calcium Level 9.1 mg/dL (8.5-10.1) Total Bilirubin 0.5 mg/dL (0.2-1.0) Aspartate Amino Transferase (AST) 19 U/L (15-37) Alanine Aminotransferase (ALT) 19 U/L (16-63) Alkaline Phosphatase 83 U/L (46-116) Total Protein 7.1 g/dL (6.4-8.2) Albumin 3.4 g/dL (3.4-5.0) Albumin/Globulin Ratio 0.9 (1.0-1.7) L Urine Collection Type Unknown Urine Color Yellow Urine Clarity Clear Urine pH 6.0 Urine Specific [place] 1.025 Urine Protein Neg (NEG-TRACE) Urine Glucose (UA) Neg mg/dL (NEG) Urine Ketones (Stick) Trace mg/dL (NEG) Urine Blood Neg (NEG) Urine Nitrite Neg (NEG) Urine Bilirubin Neg (NEG) Urine Urobilinogen Dipstick 1.0 mg/dL (0.2 mg/dL) Urine Leukocyte Esterase Neg (NEG) Urine RBC 0 /HPF (0-2) Urine WBC 0 /HPF (0-4) Urine Squamous Epithelial Cells Occ /LPF Urine Bacteria Mod /HPF (0-FEW) Current Medications: I have reviewed the current psychotropics carefully including drug interactions. Risk benefit ratio favors no change other than as noted in my dictated progress note. 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
[2020-01-10] MEDS: LEVOTHYROXINE 25 MCG TABLET. PO SCH (05:18)
[2020-01-10 06:38] VITALS: BP 150/92
--- NOTE | 2020-01-10 06:51 | PDOC ---
Exam Note: Michael Note: This note is a late entry for 01/08/2020 covers elements not covered in my initial note. Subjective: The patient was seen face to face in the evening of 01/08/2020. Nursing report was with Luis BRASHER. He slept 7 hours previous night. The patient had a difficult previous night. He was restless, wandering into others rooms. Slept 10 in the morning, did awake and had breakfast, took his medications. Meds had to be hid in his food, suspicious, paranoid of his medications. Review of Systems: No CV, GI/, Pulmonary, Eye, ENT system symptoms on review. Mental Status Exam: Oriented to himself. Insight and judgment, recent and remote memory, attention and concentration, fund of knowledge is poor consistent with his diagnosis. Laboratory Data: Reviewed. Impression: Major neurocognitive disorder multifactorial possibly Lewy body vascular, Alzheimers with delusion, depression and behavioral disturbance. Anxiety disorder unspecified. Impulse control disorder unspecified. Rest unchanged. Plan: No change from initial note. The patient is currently on Seroquel 25 mg b.i.d. and 37.5 mg b.i.d. We will continue with the 25 mg b.i.d. and increase the 37.5 mg b.i.d. to 50 mg b.i.d. Continue Exelon patch, Depakote with level therapeutic at 59, melatonin along with Zyprexa p.r.n. and trazodone p.r.n. Assessment: Vital Signs/I&O: Vital Signs Date Time Temp Pulse Resp B/P (MAP) Pulse Ox O2 Delivery O2 Flow Rate FiO2 01/10/20 06:38 97.6 60 20 150/92 (111) 99 I & O 01/09/20 01/09/20 01/10/20 15:00 23:00 07:00 Intake Total 680 ml 360 ml Balance 680 ml 360 ml Labs: Laboratory Tests Test 01/09/20 09:50 01/09/20 18:40 Sodium Level 142 mmol/L (136-145) Potassium Level 3.7 mmol/L (3.5-5.1) Chloride Level 104 mmol/L (98-107) Carbon Dioxide Level 35 mmol/L (21-32) H Anion Gap 3 (6-14) L Blood Urea Nitrogen 16 mg/dL (8-26) Creatinine 0.8 mg/dL (0.7-1.3) Estimated GFR (Cockcroft-Gault) 95.8 BUN/Creatinine Ratio 20 (6-20) Glucose Level 93 mg/dL (70-99) Calcium Level 9.1 mg/dL (8.5-10.1) Total Bilirubin 0.5 mg/dL (0.2-1.0) Aspartate Amino Transferase (AST) 19 U/L (15-37) Alanine Aminotransferase (ALT) 19 U/L (16-63) Alkaline Phosphatase 83 U/L (46-116) Total Protein 7.1 g/dL (6.4-8.2) Albumin 3.4 g/dL (3.4-5.0) Albumin/Globulin Ratio 0.9 (1.0-1.7) L Urine Collection Type Unknown Urine Color Yellow Urine Clarity Clear Urine pH 6.0 Urine Specific [place] 1.025 Urine Protein Neg (NEG-TRACE) Urine Glucose (UA) Neg mg/dL (NEG) Urine Ketones (Stick) Trace mg/dL (NEG) Urine Blood Neg (NEG) Urine Nitrite Neg (NEG) Urine Bilirubin Neg (NEG) Urine Urobilinogen Dipstick 1.0 mg/dL (0.2 mg/dL) Urine Leukocyte Esterase Neg (NEG) Urine RBC 0 /HPF (0-2) Urine WBC 0 /HPF (0-4) Urine Squamous Epithelial Cells Occ /LPF Urine Bacteria Mod /HPF (0-FEW) Current Medications: I have reviewed the current psychotropics carefully including drug interactions. Risk benefit ratio favors no change other than as noted in my dictated progress note. 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
[2020-01-10 06:52] LABS: BASO % 1 % (0-3); EOS # 0.3 x10^3/uL (0.0-0.7); EOS % 4 % (0-3); HEMATOCRIT 44.3 % (39.0-53.0); LYMPH # 3.8 x10^3/uL (1.0-4.8); LYMPH % 50 % (24-48); MEAN CORPUSCULAR HEMOGLOBIN 32 pg (25-35); MEAN CORPUSCULAR HGB CONC 34 g/dL (31-37); MEAN CORPUSCULAR VOLUME 94 fL (79-100); MONO # 0.6 x10^3/uL (0.0-1.1); MONO % 8 % (0-9); NEUT # 2.9 x10^3uL (1.8-7.7); NEUT % 37 % (31-73); PLATELET COUNT 130 x10^3/uL (140-400); RED BLOOD COUNT 4.73 x10^6/uL (4.30-5.70); RED CELL DISTRIBUTION WIDTH 14.2 % (11.5-14.5); WHITE BLOOD COUNT 7.7 x10^3/uL (4.0-11.0)
[2020-01-10 06:53] LABS: ALBUMIN 3.6 g/dL (3.4-5.0); ALBUMIN/GLOBULIN RATIO 1.1 (1.0-1.7); CALCIUM 9.3 mg/dL (8.5-10.1); CREATININE 0.9 mg/dL (0.7-1.3); GFR 83.7; POTASSIUM 3.9 mmol/L (3.5-5.1); TOTAL BILIRUBIN 0.7 mg/dL (0.2-1.0); TOTAL PROTEIN 6.9 g/dL (6.4-8.2)
[2020-01-10] MEDS: QUEtiapine 25 MG TABLET. PO SCH ×4 (08:09→19:37)
[2020-01-10] MEDS: RIVASTIGMINE 9.5MG PATCH. TD SCH (08:09)
[2020-01-10] MEDS: CARBIDOPA/LEVODOPA 10/100MG TABLET PO SCH ×3 (08:10→19:36)
[2020-01-10] MEDS: POTASSIUM CHLORIDE 20 MEQ TABLET.ER. PO SCH (08:10)
[2020-01-10] MEDS: ASCORBIC ACID 500 MG TABLET PO SCH (08:10)
[2020-01-10] MEDS: APIXABAN 5 MG TABLET. PO SCH ×2 (08:10→19:37)
[2020-01-10] MEDS: SERTRALINE 25 MG TABLET. PO SCH (08:10)
[2020-01-10] MEDS: FUROSEMIDE 40 MG TABLET PO SCH (08:11)
[2020-01-10] MEDS: SENNOSIDES/DOCUSATE 8.6/50MG TABLET. PO SCH (08:11)
[2020-01-10] MEDS: METOPROLOL TART IMMED RELEASE 25 MG TABLET PO SCH ×2 (08:11→19:37)
[2020-01-10] MEDS: TIMOLOL 0.5% OPHTH SOLUTION 5ML BOTTLE. OU SCH ×2 (08:11→19:38)
[2020-01-10] MEDS: DIVALPROEX ER 500 MG TAB.ER.24H PO SCH (08:11)
[2020-01-10] MEDS: DOCUSATE SODIUM 100 MG CAPSULE PO SCH (08:11)
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
--- NOTE | 2020-01-10 13:35 | NUR ---
Patient in bed, asleep, NAD, will hold afternoon medications at this time.
[2020-01-10 15:58] VITALS: BP 153/84
[2020-01-10] MEDS: GABAPENTIN 300 MG CAPSULE. PO SCH (19:36)
[2020-01-10] MEDS: DIVALPROEX 125 MG CAP.SPRINK PO SCH (19:37)
[2020-01-10] MEDS: ATORVASTATIN CALCIUM 20 MG TABLET PO SCH (19:37)
[2020-01-10] MEDS: MELATONIN 3 MG TABLET PO SCH (19:37)
[2020-01-10] MEDS: ACETAMINOPHEN 500 MG TABLET PO SCH (19:37)
[2020-01-10] MEDS: CYCLOBENZAPRINE 10 MG TABLET. PO SCH (19:38)
[2020-01-10] MEDS: traZODone 100 MG TABLET. PO PRN (19:42)
--- NOTE | 2020-01-10 20:25 | NUR ---
Pt walking in hallway at shift change. Pt calm, pleasant, and interactive this evening. Pt cooperative with assessment and compliant with medications administered whole.
--- NOTE | 2020-01-10 21:40 | PDOC ---
Exam Note: Michael Note: Please also refer to the separate dictated note~for this date of service dictated separately.~Patient seen individually. Discussed the patient with Nursing staff reviewed the chart.~Reviewed interim history and current functioning. Reviewed vital signs,~Labs/ Radiology~and current medications noted below. Continue current treatment with the changes noted in the dictated addendum note Assessment: Vital Signs/I&O: Vital Signs Date Time Temp Pulse Resp B/P (MAP) Pulse Ox O2 Delivery O2 Flow Rate FiO2 01/10/20 19:37 62 153/84 01/10/20 18:19 98.4 01/10/20 15:58 16 98 I & O 01/09/20 01/09/20 01/10/20 15:00 23:00 07:00 Intake Total 680 ml 360 ml Balance 680 ml 360 ml Labs: Laboratory Tests Test 01/10/20 06:25 White Blood Count 7.7 x10^3/uL (4.0-11.0) Red Blood Count 4.73 x10^6/uL (4.30-5.70) Hemoglobin 15.0 g/dL (13.0-17.5) Hematocrit 44.3 % (39.0-53.0) Mean Corpuscular Volume 94 fL (79-100) Mean Corpuscular Hemoglobin 32 pg (25-35) Mean Corpuscular Hemoglobin Concent 34 g/dL (31-37) Red Cell Distribution Width 14.2 % (11.5-14.5) Platelet Count 130 x10^3/uL (140-400) L Neutrophils (%) (Auto) 37 % (31-73) Lymphocytes (%) (Auto) 50 % (24-48) H Monocytes (%) (Auto) 8 % (0-9) Eosinophils (%) (Auto) 4 % (0-3) H Basophils (%) (Auto) 1 % (0-3) Neutrophils # (Auto) 2.9 x10^3uL (1.8-7.7) Lymphocytes # (Auto) 3.8 x10^3/uL (1.0-4.8) Monocytes # (Auto) 0.6 x10^3/uL (0.0-1.1) Eosinophils # (Auto) 0.3 x10^3/uL (0.0-0.7) Basophils # (Auto) 0.0 x10^3/uL (0.0-0.2) Sodium Level 144 mmol/L (136-145) Potassium Level 3.9 mmol/L (3.5-5.1) Chloride Level 106 mmol/L (98-107) Carbon Dioxide Level 31 mmol/L (21-32) Anion Gap 7 (6-14) Blood Urea Nitrogen 21 mg/dL (8-26) Creatinine 0.9 mg/dL (0.7-1.3) Estimated GFR (Cockcroft-Gault) 83.7 BUN/Creatinine Ratio 23 (6-20) H Glucose Level 86 mg/dL (70-99) Calcium Level 9.3 mg/dL (8.5-10.1) Total Bilirubin 0.7 mg/dL (0.2-1.0) Aspartate Amino Transferase (AST) 19 U/L (15-37) Alanine Aminotransferase (ALT) 19 U/L (16-63) Alkaline Phosphatase 81 U/L (46-116) Total Protein 6.9 g/dL (6.4-8.2) Albumin 3.6 g/dL (3.4-5.0) Albumin/Globulin Ratio 1.1 (1.0-1.7) Current Medications: I have reviewed the current psychotropics carefully including drug interactions. Risk benefit ratio favors no change other than as noted in my dictated progress note. 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
[2020-01-11] MEDS: LEVOTHYROXINE 25 MCG TABLET. PO SCH (05:24)
[2020-01-11 06:02] VITALS: BP 115/58
[2020-01-11 06:11] VITALS: BP 115/58
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
[2020-01-11] MEDS: CARBIDOPA/LEVODOPA 10/100MG TABLET PO SCH ×3 (08:05→20:29)
[2020-01-11] MEDS: SERTRALINE 25 MG TABLET. PO SCH (08:05)
[2020-01-11] MEDS: DIVALPROEX ER 500 MG TAB.ER.24H PO SCH (08:05)
[2020-01-11] MEDS: QUEtiapine 25 MG TABLET. PO SCH ×4 (08:06→20:29)
[2020-01-11] MEDS: METOPROLOL TART IMMED RELEASE 25 MG TABLET PO SCH ×2 (08:06→20:29)
[2020-01-11] MEDS: FUROSEMIDE 40 MG TABLET PO SCH (08:06)
[2020-01-11] MEDS: ASCORBIC ACID 500 MG TABLET PO SCH (08:06)
[2020-01-11] MEDS: POTASSIUM CHLORIDE 20 MEQ TABLET.ER. PO SCH (08:06)
[2020-01-11] MEDS: APIXABAN 5 MG TABLET. PO SCH ×2 (08:07→20:29)
[2020-01-11] MEDS: RIVASTIGMINE 13.3MG PATCH. TD SCH (08:07)
[2020-01-11] MEDS: SENNOSIDES/DOCUSATE 8.6/50MG TABLET. PO SCH (08:07)
[2020-01-11] MEDS: DOCUSATE SODIUM 100 MG CAPSULE PO SCH (08:07)
[2020-01-11] MEDS: TIMOLOL 0.5% OPHTH SOLUTION 5ML BOTTLE. OU SCH ×2 (09:00→20:29)
[2020-01-11 16:21] VITALS: BP 115/73
[2020-01-11] MEDS: GABAPENTIN 300 MG CAPSULE. PO SCH (20:29)
[2020-01-11] MEDS: DIVALPROEX 125 MG CAP.SPRINK PO SCH (20:29)
[2020-01-11] MEDS: ACETAMINOPHEN 500 MG TABLET PO SCH (20:29)
[2020-01-11] MEDS: MELATONIN 3 MG TABLET PO SCH (20:30)
[2020-01-11] MEDS: traZODone 100 MG TABLET. PO PRN (20:30)
[2020-01-11] MEDS: CYCLOBENZAPRINE 10 MG TABLET. PO SCH (20:30)
[2020-01-11] MEDS: ATORVASTATIN CALCIUM 20 MG TABLET PO SCH (20:30)
--- NOTE | 2020-01-11 21:10 | NUR ---
Pt walking in hallway at shift change. Pt confused and disorganized, irritable and resistive with re-direction but no agitation or aggression. Pt cooperative with assessment and compliant with medications administered whole.
--- NOTE | 2020-01-11 22:14 | PDOC ---
Exam Note: Michael Note: This note is a late entry for 01/10/2020 covers elements not covered in my initial note. Subjective: The patient was seen face to face in the evening of 01/10/2020. Nursing report was with Dago BRASHER. He slept 6-1/2 hours previous night. In the morning he was anxious, restless, wandering, intrusive. UA is not reflective of UTI. Later in the day he was somewhat drowsy. Review of Systems: Ambulation impaired, unsteady gait. No CV, GI/, Pulmonary, Eye, ENT system symptoms on review. Reliability poor. Mental Status Exam: Oriented to himself. Insight and judgment, recent and remote memory, attention and concentration, fund of knowledge is poor consistent with his diagnosis. Laboratory Data: Reviewed. Impression: Major neurocognitive disorder multifactorial possibly Lewy body vascular, Alzheimers with delusion, depression and behavioral disturbance. Anxiety disorder unspecified. Impulse control disorder unspecified. Rest unchanged. Plan: Continue psychotropics from initial note. Increase Exelon patch from 9.5 mg a day to 13.3 mg a day after he has been on 9.5 mg for 5 days. Rest unchanged. Assessment: Vital Signs/I&O: Vital Signs Date Time Temp Pulse Resp B/P (MAP) Pulse Ox O2 Delivery O2 Flow Rate FiO2 01/11/20 20:29 67 115/73 01/11/20 20:25 99.6 96 01/11/20 16:21 16 I & O 01/10/20 01/10/20 01/11/20 15:00 23:00 07:00 Intake Total 600 ml 660 ml Balance 600 ml 660 ml Current Medications: Meds: Current Medications Medications (Trade) Dose Ordered Sig/Gloria Route PRN Reason Start Time Stop Time Status Last Admin Dose Admin Rivastigmine (Exelon 13.3mg) 1 patch DAILY TD 01/11/20 09:00 01/11/20 08:07 I have reviewed the current psychotropics carefully including drug interactions. Risk benefit ratio favors no change other than as noted in my dictated progress note. Diagnosis: Problems: (1) Major neurocognitive disorder (2) Parkinson's disease (3) Dementia, vascular, with delusions (4) Dementia in Alzheimer's disease with delusions (5) Anxiety disorder (6) Impulse control disorder CAMERON ROSAS MD Jan 11, 2020 22:14
--- NOTE | 2020-01-11 22:14 | PDOC ---
Exam Note: Michael Note: Please also refer to the separate dictated note~for this date of service dictated separately.~Patient seen individually. Discussed the patient with Nursing staff reviewed the chart.~Reviewed interim history and current functioning. Reviewed vital signs,~Labs/ Radiology~and current medications noted below. Continue current treatment with the changes noted in the dictated addendum note Assessment: Vital Signs/I&O: Vital Signs Date Time Temp Pulse Resp B/P (MAP) Pulse Ox O2 Delivery O2 Flow Rate FiO2 01/11/20 20:29 67 115/73 01/11/20 20:25 99.6 96 01/11/20 16:21 16 I & O 01/10/20 01/10/20 01/11/20 15:00 23:00 07:00 Intake Total 600 ml 660 ml Balance 600 ml 660 ml Current Medications: Meds: Current Medications Medications (Trade) Dose Ordered Sig/Gloria Route PRN Reason Start Time Stop Time Status Last Admin Dose Admin Rivastigmine (Exelon 13.3mg) 1 patch DAILY TD 01/11/20 09:00 01/11/20 08:07 I have reviewed the current psychotropics carefully including drug interactions. Risk benefit ratio favors no change other than as noted in my dictated progress note. Diagnosis: Problems: (1) Major neurocognitive disorder (2) Parkinson's disease (3) Dementia, vascular, with delusions (4) Dementia in Alzheimer's disease with delusions (5) Anxiety disorder (6) Impulse control disorder CAMERON ROSAS MD Jan 11, 2020 22:14
[2020-01-12] MEDS: LEVOTHYROXINE 25 MCG TABLET. PO SCH (05:17)
[2020-01-12 05:59] VITALS: BP 128/82
[2020-01-12 07:29] LABS: ALBUMIN 3.1 g/dL (3.4-5.0); CALCIUM 8.9 mg/dL (8.5-10.1); CREATININE 0.9 mg/dL (0.7-1.3); GFR 83.7; POTASSIUM 3.6 mmol/L (3.5-5.1); TOTAL BILIRUBIN 0.6 mg/dL (0.2-1.0); TOTAL PROTEIN 6.3 g/dL (6.4-8.2)
[2020-01-12 07:46] LABS: BASO # 0.1 x10^3/uL (0.0-0.2); BASO % 1 % (0-3); EOS # 0.3 x10^3/uL (0.0-0.7); EOS % 6 % (0-3); HEMATOCRIT 40.6 % (39.0-53.0); LYMPH # 2.5 x10^3/uL (1.0-4.8); LYMPH % 44 % (24-48); MEAN CORPUSCULAR HEMOGLOBIN 32 pg (25-35); MEAN CORPUSCULAR HGB CONC 35 g/dL (31-37); MEAN CORPUSCULAR VOLUME 92 fL (79-100); MONO # 0.5 x10^3/uL (0.0-1.1); MONO % 9 % (0-9); NEUT # 2.3 x10^3uL (1.8-7.7); NEUT % 41 % (31-73); PLATELET COUNT 121 x10^3/uL (140-400); RED BLOOD COUNT 4.41 x10^6/uL (4.30-5.70); RED CELL DISTRIBUTION WIDTH 13.8 % (11.5-14.5); WHITE BLOOD COUNT 5.7 x10^3/uL (4.0-11.0)
[2020-01-12] MEDS: SERTRALINE 25 MG TABLET. PO SCH (08:34)
[2020-01-12] MEDS: RIVASTIGMINE 13.3MG PATCH. TD SCH (08:34)
[2020-01-12] MEDS: APIXABAN 5 MG TABLET. PO SCH ×2 (08:35→20:16)
[2020-01-12] MEDS: QUEtiapine 25 MG TABLET. PO SCH ×4 (08:35→20:14)
[2020-01-12] MEDS: DOCUSATE SODIUM 100 MG CAPSULE PO SCH (08:35)
[2020-01-12] MEDS: METOPROLOL TART IMMED RELEASE 25 MG TABLET PO SCH ×2 (08:35→20:13)
[2020-01-12] MEDS: SENNOSIDES/DOCUSATE 8.6/50MG TABLET. PO SCH (08:35)
[2020-01-12] MEDS: ASCORBIC ACID 500 MG TABLET PO SCH (08:35)
[2020-01-12] MEDS: CARBIDOPA/LEVODOPA 10/100MG TABLET PO SCH ×3 (08:36→20:15)
[2020-01-12] MEDS: DIVALPROEX ER 500 MG TAB.ER.24H PO SCH (08:36)
[2020-01-12] MEDS: MEMANTINE 5 MG TABLET. PO SCH ×2 (08:36→16:55)
[2020-01-12] MEDS: TIMOLOL 0.5% OPHTH SOLUTION 5ML BOTTLE. OU SCH ×2 (08:36→20:13)
[2020-01-12] MEDS: FUROSEMIDE 40 MG TABLET PO SCH (08:36)
[2020-01-12] MEDS: POTASSIUM CHLORIDE 20 MEQ TABLET.ER. PO SCH (08:36)
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
--- NOTE | 2020-01-12 15:05 | NUR ---
WEEKLY NOTE: Pt , Margy, participated in treatment team via telephone. Pt is eating roughly 75-100% of meals and sleeping on average 7 hours per night. Pt has done well the last 3 days in terms of being less aggressive. Pt does continue to be disorganized/confused, wandering but interactive with peers and staff. Pt is mostly cooperative with staff redirection and medication compliant. The team and pt discussed pt behaviors looking a lot like Lewy Body Dementia and will plan to treat pt medications as though that is the case. ELOS for the end of next week if not the early part of the week after.
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
[2020-01-12 15:55] VITALS: BP 145/71
--- NOTE | 2020-01-12 17:42 | NUR ---
Pt calm, compliant, wanders [place] at times. No agitation or aggression noted this shift.
[2020-01-12] MEDS: ACETAMINOPHEN 500 MG TABLET PO SCH (20:15)
[2020-01-12] MEDS: ATORVASTATIN CALCIUM 20 MG TABLET PO SCH (20:15)
[2020-01-12] MEDS: CYCLOBENZAPRINE 10 MG TABLET. PO SCH (20:16)
[2020-01-12] MEDS: traZODone 100 MG TABLET. PO PRN (20:16)
[2020-01-12] MEDS: GABAPENTIN 300 MG CAPSULE. PO SCH (20:17)
[2020-01-12] MEDS: MELATONIN 3 MG TABLET PO SCH (20:17)
--- NOTE | 2020-01-12 22:00 | NUR ---
Patient is walking around the unit on assumption of care. Disorganized, intrusive. Going in to other patients rooms and can be difficult to redirect. Compliant with medications taken whole. Compliant with assessments and HS cares. No agitation this shift. No complaints of pain or discomfort. Denies SI/HI. Will continue to monitor.
--- NOTE | 2020-01-12 22:04 | PDOC ---
Exam Note: Michael Note: Please also refer to the separate dictated note~for this date of service dictated separately.~Patient seen individually. Discussed the patient with Nursing staff reviewed the chart.~Reviewed interim history and current functioning. Reviewed vital signs,~Labs/ Radiology~and current medications noted below. Continue current treatment with the changes noted in the dictated addendum note Assessment: Vital Signs/I&O: Vital Signs Date Time Temp Pulse Resp B/P (MAP) Pulse Ox O2 Delivery O2 Flow Rate FiO2 01/12/20 20:13 62 145/71 01/12/20 18:02 98.1 01/12/20 15:55 98 01/12/20 05:59 20 Room Air I & O 01/11/20 01/11/20 01/12/20 15:00 23:00 07:00 Intake Total 720 ml 560 ml Balance 720 ml 560 ml Labs: Laboratory Tests Test 01/12/20 06:39 White Blood Count 5.7 x10^3/uL (4.0-11.0) Red Blood Count 4.41 x10^6/uL (4.30-5.70) Hemoglobin 14.0 g/dL (13.0-17.5) Hematocrit 40.6 % (39.0-53.0) Mean Corpuscular Volume 92 fL (79-100) Mean Corpuscular Hemoglobin 32 pg (25-35) Mean Corpuscular Hemoglobin Concent 35 g/dL (31-37) Red Cell Distribution Width 13.8 % (11.5-14.5) Platelet Count 121 x10^3/uL (140-400) L Neutrophils (%) (Auto) 41 % (31-73) Lymphocytes (%) (Auto) 44 % (24-48) Monocytes (%) (Auto) 9 % (0-9) Eosinophils (%) (Auto) 6 % (0-3) H Basophils (%) (Auto) 1 % (0-3) Neutrophils # (Auto) 2.3 x10^3uL (1.8-7.7) Lymphocytes # (Auto) 2.5 x10^3/uL (1.0-4.8) Monocytes # (Auto) 0.5 x10^3/uL (0.0-1.1) Eosinophils # (Auto) 0.3 x10^3/uL (0.0-0.7) Basophils # (Auto) 0.1 x10^3/uL (0.0-0.2) Sodium Level 142 mmol/L (136-145) Potassium Level 3.6 mmol/L (3.5-5.1) Chloride Level 105 mmol/L (98-107) Carbon Dioxide Level 33 mmol/L (21-32) H Anion Gap 4 (6-14) L Blood Urea Nitrogen 15 mg/dL (8-26) Creatinine 0.9 mg/dL (0.7-1.3) Estimated GFR (Cockcroft-Gault) 83.7 BUN/Creatinine Ratio 17 (6-20) Glucose Level 94 mg/dL (70-99) Calcium Level 8.9 mg/dL (8.5-10.1) Total Bilirubin 0.6 mg/dL (0.2-1.0) Aspartate Amino Transferase (AST) 17 U/L (15-37) Alanine Aminotransferase (ALT) 20 U/L (16-63) Alkaline Phosphatase 67 U/L (46-116) Total Protein 6.3 g/dL (6.4-8.2) L Albumin 3.1 g/dL (3.4-5.0) L Albumin/Globulin Ratio 1.0 (1.0-1.7) Current Medications: Meds: Current Medications Medications (Trade) Dose Ordered Sig/Gloria Route PRN Reason Start Time Stop Time Status Last Admin Dose Admin Memantine (Namenda) 5 mg 0900,1700 PO 01/12/20 09:00 01/12/20 16:55 I have reviewed the current psychotropics carefully including drug interactions. Risk benefit ratio favors no change other than as noted in my dictated progress note. Diagnosis: Problems: (1) Major neurocognitive disorder (2) Parkinson's disease (3) Dementia, vascular, with delusions (4) Dementia in Alzheimer's disease with delusions (5) Anxiety disorder (6) Impulse control disorder CAMERON ROSAS MD Jan 12, 2020 22:04
[2020-01-13] MEDS: LEVOTHYROXINE 25 MCG TABLET. PO SCH (06:10)
[2020-01-13 06:39] VITALS: BP 164/81
--- NOTE | 2020-01-13 07:40 | PDOC ---
Exam Note: Michael Note: This note is a late entry for 01/11/2020 covers elements not covered in my initial note. Subjective: The patient was seen face to face in the evening of 01/11/2020. Nursing report was with Dago BRASHER. He slept 7-1/2 hours previous night. No behavior problems previous night. During the day on 01/10 he was wandering, intrusive, irritable. Review of Systems: Ambulation impaired, unsteady gait. No CV, , pulmonary, eye, ENT system symptoms on review. Reliability poor. Mental Status Exam: Oriented to himself. Insight and judgment, recent and remote memory, attention and concentration, fund of knowledge is poor consistent with his diagnoses. Laboratory Data: Reviewed. Impression: Major neurocognitive disorder multifactorial possibly Lewy body vascular, Alzheimers with delusion, depression and behavioral disturbance. Anxiety disorder unspecified. Impulse control disorder unspecified. Rest unchanged. Plan: Start Namenda 5 mg 9 a.m. and 5 p.m. given his Lewy body dementia diagnosis. Continue rest of the psychotropics unchanged from initial note. Assessment: Vital Signs/I&O: Vital Signs Date Time Temp Pulse Resp B/P (MAP) Pulse Ox O2 Delivery O2 Flow Rate FiO2 01/13/20 06:39 98.2 59 16 164/81 (108) 98 01/12/20 05:59 Room Air I & O 01/12/20 01/12/20 01/13/20 15:00 23:00 07:00 Intake Total 480 ml 440 ml Balance 480 ml 440 ml Current Medications: Meds: Current Medications Medications (Trade) Dose Ordered Sig/Gloria Route PRN Reason Start Time Stop Time Status Last Admin Dose Admin Memantine (Namenda) 5 mg 0900,1700 PO 01/12/20 09:00 01/12/20 16:55 I have reviewed the current psychotropics carefully including drug interactions. Risk benefit ratio favors no change other than as noted in my dictated progress note. Diagnosis: Problems: (1) Major neurocognitive disorder (2) Parkinson's disease (3) Dementia, vascular, with delusions (4) Dementia in Alzheimer's disease with delusions (5) Anxiety disorder (6) Impulse control disorder CAMERON ROSAS MD Jan 13, 2020 07:40
--- NOTE | 2020-01-13 07:59 | PDOC ---
Exam Note: Michael Note: This note is a late entry for 01/12/2020 covers elements not covered in my initial note. Subjective: The patient was seen face to face in the morning of 01/12/2020 with treatment team meeting with Ann BRASHER, January Hughes and Paula (social service staff) and [facility] Activity Therapy. The patients Margy also attended the lengthy treatment team meeting. We reviewed the patients history, progressive confusion and symptoms reflective of Lewy body dementia and the said she has seen significant diurnal variation in his mood and memory. He used to use CPAP at home. We will do a nocturnal O2 saturations on several occasions to see if he desaturations. We discussed discharge plans back to [facility] once he is stable. He remains on gabapentin according to his 300 mg h.s. for restless legs. He is slept 7-1/2 hours previous night. Appetite is 80%. He is confused. Discussed with Tamica BRASHER in the evening. He has done better, less agitated. Review of Systems: Ambulation impaired, unsteady gait. No CV, , pulmonary, eye, ENT system symptoms on review. Reliability poor. Mental Status Exam: Oriented to himself. Insight and judgment, recent and remote memory, attention and concentration, fund of knowledge is poor consistent with his diagnoses. Laboratory Data: Reviewed. Impression: Major neurocognitive disorder multifactorial possibly Lewy body vascular, Alzheimers with delusion, depression and behavioral disturbance. Anxiety disorder unspecified. Impulse control disorder unspecified. Rest unchanged. Plan: Continue psychotropics from initial note. We are gradually adjusting his psychotropics. We will change Depakote to Depakote ER 500 mg h.s., Depakote Sprinkle 125 mg in the morning. Namenda is being adjusted, Exelon patch 13.3 mg a day. Adjust further as clinically indicated. Assessment: Vital Signs/I&O: Vital Signs Date Time Temp Pulse Resp B/P (MAP) Pulse Ox O2 Delivery O2 Flow Rate FiO2 01/13/20 06:39 98.2 59 16 164/81 (108) 98 01/12/20 05:59 Room Air I & O 01/12/20 01/12/20 01/13/20 15:00 23:00 07:00 Intake Total 480 ml 440 ml Balance 480 ml 440 ml Current Medications: Meds: Current Medications Medications (Trade) Dose Ordered Sig/Gloria Route PRN Reason Start Time Stop Time Status Last Admin Dose Admin Memantine (Namenda) 5 mg 0900,1700 PO 01/12/20 09:00 01/12/20 16:55 I have reviewed the current psychotropics carefully including drug interactions. Risk benefit ratio favors no change other than as noted in my dictated progress note. Diagnosis: Problems: (1) Major neurocognitive disorder (2) Parkinson's disease (3) Dementia, vascular, with delusions (4) Dementia in Alzheimer's disease with delusions (5) Anxiety disorder (6) Impulse control disorder CAMERON ROSAS MD Jan 13, 2020 07:59
[2020-01-13] MEDS: TIMOLOL 0.5% OPHTH SOLUTION 5ML BOTTLE. OU SCH ×2 (09:49→19:46)
[2020-01-13] MEDS: DOCUSATE SODIUM 100 MG CAPSULE PO SCH (09:49)
[2020-01-13] MEDS: DIVALPROEX 125 MG CAP.SPRINK PO SCH (09:49)
[2020-01-13] MEDS: METOPROLOL TART IMMED RELEASE 25 MG TABLET PO SCH ×2 (09:50→19:46)
[2020-01-13] MEDS: POTASSIUM CHLORIDE 20 MEQ TABLET.ER. PO SCH (09:50)
[2020-01-13] MEDS: APIXABAN 5 MG TABLET. PO SCH ×2 (09:50→19:45)
[2020-01-13] MEDS: FUROSEMIDE 40 MG TABLET PO SCH (09:50)
[2020-01-13] MEDS: MEMANTINE 5 MG TABLET. PO SCH ×2 (09:51→16:09)
[2020-01-13] MEDS: CARBIDOPA/LEVODOPA 10/100MG TABLET PO SCH ×3 (09:51→19:44)
[2020-01-13] MEDS: QUEtiapine 25 MG TABLET. PO SCH ×4 (09:51→19:44)
[2020-01-13] MEDS: ASCORBIC ACID 500 MG TABLET PO SCH (09:51)
[2020-01-13] MEDS: SENNOSIDES/DOCUSATE 8.6/50MG TABLET. PO SCH (09:51)
[2020-01-13] MEDS: SERTRALINE 25 MG TABLET. PO SCH (09:51)
[2020-01-13] MEDS: RIVASTIGMINE 13.3MG PATCH. TD SCH (09:52)
--- NOTE | 2020-01-13 13:42 | NUR ---
Pt slept in some this morning, took medications whole and allowed for morning assessment. Pt has been calm, cooperative, did mention that he was "looking for the boys" right before lunch. Pt was able to be redirected. No agitation noted at this time, will continue to monitor.
--- NOTE | 2020-01-13 16:12 | NUR ---
Pt was getting restless and worried about another pt, PRN Aurea given @7160. Pt is now in his room. Will continue to monitor.
[2020-01-13 16:27] VITALS: BP 133/87
[2020-01-13] MEDS: ACETAMINOPHEN 500 MG TABLET PO SCH (19:44)
[2020-01-13] MEDS: GABAPENTIN 300 MG CAPSULE. PO SCH (19:44)
[2020-01-13] MEDS: DIVALPROEX ER 500 MG TAB.ER.24H PO SCH (19:45)
[2020-01-13] MEDS: MELATONIN 3 MG TABLET PO SCH (19:45)
[2020-01-13] MEDS: CYCLOBENZAPRINE 10 MG TABLET. PO SCH (19:45)
[2020-01-13] MEDS: ATORVASTATIN CALCIUM 20 MG TABLET PO SCH (19:45)
--- NOTE | 2020-01-13 22:14 | PDOC ---
Exam Note: Michael Note: Please also refer to the separate dictated note~for this date of service dictated separately.~Patient seen individually. Discussed the patient with Nursing staff reviewed the chart.~Reviewed interim history and current functioning. Reviewed vital signs,~Labs/ Radiology~and current medications noted below. Continue current treatment with the changes noted in the dictated addendum note Assessment: Vital Signs/I&O: Vital Signs Date Time Temp Pulse Resp B/P (MAP) Pulse Ox O2 Delivery O2 Flow Rate FiO2 01/13/20 22:13 97.8 94 01/13/20 19:46 63 133/87 01/13/20 16:27 18 01/12/20 05:59 Room Air I & O 01/12/20 01/12/20 01/13/20 15:00 23:00 07:00 Intake Total 480 ml 440 ml Balance 480 ml 440 ml Current Medications: Meds: Current Medications Medications (Trade) Dose Ordered Sig/Gloria Route PRN Reason Start Time Stop Time Status Last Admin Dose Admin Divalproex Sodium (Depakote Sprinkles) 125 mg DAILY PO 01/13/20 09:00 01/13/20 09:49 Divalproex Sodium (Depakote Er) 500 mg HS PO 01/13/20 21:00 01/13/20 19:45 I have reviewed the current psychotropics carefully including drug interactions. Risk benefit ratio favors no change other than as noted in my dictated progress note. Diagnosis: Problems: (1) Major neurocognitive disorder (2) Parkinson's disease (3) Dementia, vascular, with delusions (4) Dementia in Alzheimer's disease with delusions (5) Anxiety disorder (6) Impulse control disorder CAMERON ROSAS MD Jan 13, 2020 22:14
--- NOTE | 2020-01-14 00:43 | NUR ---
Nursing Note The patient was located in his room as well as the hallways when approached for his medication and assessment. The patient has been wandering this shift and has on numerous occasions attempted to enter other patients rooms. The patient has become agitated when asked to exit other patients rooms. The patient was given PRN Zyprexa per PRN order. The patient is currently sleeping in his room.
[2020-01-14 06:00] VITALS: BP 163/95
[2020-01-14] MEDS: LEVOTHYROXINE 25 MCG TABLET. PO SCH (06:07)
[2020-01-14 07:40] LABS: BASO % 1 % (0-3); EOS # 0.3 x10^3/uL (0.0-0.7); EOS % 4 % (0-3); HEMATOCRIT 42.2 % (39.0-53.0); HEMOGLOBIN 14.7 g/dL (13.0-17.5); LYMPH # 2.6 x10^3/uL (1.0-4.8); LYMPH % 34 % (24-48); MEAN CORPUSCULAR HEMOGLOBIN 32 pg (25-35); MEAN CORPUSCULAR HGB CONC 35 g/dL (31-37); MEAN CORPUSCULAR VOLUME 92 fL (79-100); MONO # 0.8 x10^3/uL (0.0-1.1); MONO % 10 % (0-9); NEUT # 3.9 x10^3uL (1.8-7.7); NEUT % 51 % (31-73); PLATELET COUNT 130 x10^3/uL (140-400); RED BLOOD COUNT 4.61 x10^6/uL (4.30-5.70); RED CELL DISTRIBUTION WIDTH 14.1 % (11.5-14.5); WHITE BLOOD COUNT 7.6 x10^3/uL (4.0-11.0)
[2020-01-14] MEDS: TIMOLOL 0.5% OPHTH SOLUTION 5ML BOTTLE. OU SCH ×2 (07:52→19:49)
[2020-01-14] MEDS: POTASSIUM CHLORIDE 20 MEQ TABLET.ER. PO SCH (07:52)
[2020-01-14] MEDS: DOCUSATE SODIUM 100 MG CAPSULE PO SCH (07:52)
[2020-01-14] MEDS: APIXABAN 5 MG TABLET. PO SCH ×2 (07:52→19:52)
[2020-01-14] MEDS: DIVALPROEX 125 MG CAP.SPRINK PO SCH (07:52)
[2020-01-14] MEDS: FUROSEMIDE 40 MG TABLET PO SCH (07:53)
[2020-01-14] MEDS: MEMANTINE 5 MG TABLET. PO SCH ×2 (07:53→16:35)
[2020-01-14] MEDS: METOPROLOL TART IMMED RELEASE 25 MG TABLET PO SCH ×2 (07:53→19:51)
[2020-01-14] MEDS: SENNOSIDES/DOCUSATE 8.6/50MG TABLET. PO SCH (07:53)
[2020-01-14] MEDS: SERTRALINE 25 MG TABLET. PO SCH (07:54)
[2020-01-14] MEDS: CARBIDOPA/LEVODOPA 10/100MG TABLET PO SCH ×3 (07:54→19:51)
[2020-01-14] MEDS: QUEtiapine 25 MG TABLET. PO SCH ×4 (07:54→19:51)
[2020-01-14] MEDS: RIVASTIGMINE 13.3MG PATCH. TD SCH (07:54)
[2020-01-14] MEDS: ASCORBIC ACID 500 MG TABLET PO SCH (07:54)
[2020-01-14 08:38] LABS: ALBUMIN 3.2 g/dL (3.4-5.0); ALBUMIN/GLOBULIN RATIO 0.9 (1.0-1.7); CALCIUM 8.6 mg/dL (8.5-10.1); CREATININE 0.9 mg/dL (0.7-1.3); GFR 83.7; POTASSIUM 3.7 mmol/L (3.5-5.1); TOTAL BILIRUBIN 0.5 mg/dL (0.2-1.0); TOTAL PROTEIN 6.6 g/dL (6.4-8.2)
--- NOTE | 2020-01-14 09:35 | NUR ---
Pt was in the hallway during morning rounding, took medications whole, allowed for morning assessment. Pt mentioned to the nurse that " a nurse last night here." Also that his son disappeared 10 years ago and was [place] sea. PRN Zyprexa given with morning medications @0754. Pt was able to be redirected to breakfast. No agitation noted, Will continue to monitor.
[2020-01-14 15:56] VITALS: BP 138/87
[2020-01-14] MEDS: GABAPENTIN 300 MG CAPSULE. PO SCH (19:49)
[2020-01-14] MEDS: CYCLOBENZAPRINE 10 MG TABLET. PO SCH (19:50)
[2020-01-14] MEDS: DIVALPROEX ER 500 MG TAB.ER.24H PO SCH (19:50)
[2020-01-14] MEDS: ATORVASTATIN CALCIUM 20 MG TABLET PO SCH (19:50)
[2020-01-14] MEDS: MELATONIN 3 MG TABLET PO SCH (19:52)
[2020-01-14] MEDS: ACETAMINOPHEN 500 MG TABLET PO SCH (19:52)
--- NOTE | 2020-01-14 21:56 | PDOC ---
Exam Note: Michael Note: Please also refer to the separate dictated note~for this date of service dictated separately.~Patient seen individually. Discussed the patient with Nursing staff reviewed the chart.~Reviewed interim history and current functioning. Reviewed vital signs,~Labs/ Radiology~and current medications noted below. Continue current treatment with the changes noted in the dictated addendum note Assessment: Vital Signs/I&O: Vital Signs Date Time Temp Pulse Resp B/P (MAP) Pulse Ox O2 Delivery O2 Flow Rate FiO2 01/14/20 19:51 68 138/87 01/14/20 15:56 97.4 19 97 Room Air I & O 01/13/20 01/13/20 01/14/20 15:00 23:00 07:00 Intake Total 240 ml 360 ml Balance 240 ml 360 ml Labs: Laboratory Tests Test 01/14/20 07:20 White Blood Count 7.6 x10^3/uL (4.0-11.0) Red Blood Count 4.61 x10^6/uL (4.30-5.70) Hemoglobin 14.7 g/dL (13.0-17.5) Hematocrit 42.2 % (39.0-53.0) Mean Corpuscular Volume 92 fL (79-100) Mean Corpuscular Hemoglobin 32 pg (25-35) Mean Corpuscular Hemoglobin Concent 35 g/dL (31-37) Red Cell Distribution Width 14.1 % (11.5-14.5) Platelet Count 130 x10^3/uL (140-400) L Neutrophils (%) (Auto) 51 % (31-73) Lymphocytes (%) (Auto) 34 % (24-48) Monocytes (%) (Auto) 10 % (0-9) H Eosinophils (%) (Auto) 4 % (0-3) H Basophils (%) (Auto) 1 % (0-3) Neutrophils # (Auto) 3.9 x10^3uL (1.8-7.7) Lymphocytes # (Auto) 2.6 x10^3/uL (1.0-4.8) Monocytes # (Auto) 0.8 x10^3/uL (0.0-1.1) Eosinophils # (Auto) 0.3 x10^3/uL (0.0-0.7) Basophils # (Auto) 0.0 x10^3/uL (0.0-0.2) Sodium Level 141 mmol/L (136-145) Potassium Level 3.7 mmol/L (3.5-5.1) Chloride Level 104 mmol/L (98-107) Carbon Dioxide Level 33 mmol/L (21-32) H Anion Gap 4 (6-14) L Blood Urea Nitrogen 12 mg/dL (8-26) Creatinine 0.9 mg/dL (0.7-1.3) Estimated GFR (Cockcroft-Gault) 83.7 BUN/Creatinine Ratio 13 (6-20) Glucose Level 125 mg/dL (70-99) H Calcium Level 8.6 mg/dL (8.5-10.1) Total Bilirubin 0.5 mg/dL (0.2-1.0) Aspartate Amino Transferase (AST) 18 U/L (15-37) Alanine Aminotransferase (ALT) 25 U/L (16-63) Alkaline Phosphatase 85 U/L (46-116) Total Protein 6.6 g/dL (6.4-8.2) Albumin 3.2 g/dL (3.4-5.0) L Albumin/Globulin Ratio 0.9 (1.0-1.7) L Current Medications: I have reviewed the current psychotropics carefully including drug interactions. Risk benefit ratio favors no change other than as noted in my dictated progress note. Diagnosis: Problems: (1) Major neurocognitive disorder (2) Parkinson's disease (3) Dementia, vascular, with delusions (4) Dementia in Alzheimer's disease with delusions (5) Anxiety disorder (6) Impulse control disorder CAMERON ROSAS MD Jan 14, 2020 21:56
--- NOTE | 2020-01-14 22:00 | NUR ---
Patient is walking around the unit on assumption of care. Disorganized, less intrusive this shift. Compliant with medications taken whole. Compliant with assessments and HS cares. No agitation this shift. No complaints of pain or discomfort. Denies SI/HI. Will continue to monitor.
[2020-01-15] MEDS: LEVOTHYROXINE 25 MCG TABLET. PO SCH (05:03)
[2020-01-15 06:27] VITALS: BP 142/83
--- NOTE | 2020-01-15 07:37 | PDOC ---
Exam Note: Michael Note: This note is a late entry for 01/13/2020 covers elements not covered in my initial note. Subjective: The patient was seen face to face in the evening of 01/13/2020. Nursing report with Belinda BRASHER. He slept 7 hours previous night. He is ambulating on his own, trying to be helpful to other staff members, upset after another patient fell on the unit. He is agitated. Received Zyprexa at 04.10 p.m. He does have worsening confusion intermittently during the day and increasing psychotic symptoms. Other times he does better. Review of Systems: Ambulation impaired. No CV, , pulmonary, eye, ENT system symptoms on review. Reliability poor. Mental Status Exam: Oriented to himself. Insight and judgment, recent and remote memory, attention and concentration, fund of knowledge is poor consistent with his diagnoses. Laboratory Data: Reviewed. Impression: Major neurocognitive disorder multifactorial possibly Lewy body vascular, Alzheimers with delusion, depression and behavioral disturbance. Anxiety disorder unspecified. Impulse control disorder unspecified. Rest unchanged. Plan: Continue psychotropics from initial note. Assessment: Vital Signs/I&O: Vital Signs Date Time Temp Pulse Resp B/P (MAP) Pulse Ox O2 Delivery O2 Flow Rate FiO2 01/15/20 06:27 97.3 60 16 142/83 (102) 95 01/14/20 15:56 Room Air I & O 01/14/20 01/14/20 01/15/20 15:00 23:00 07:00 Intake Total 600 ml 360 ml Balance 600 ml 360 ml Current Medications: I have reviewed the current psychotropics carefully including drug interactions. Risk benefit ratio favors no change other than as noted in my dictated progress note. Diagnosis: Problems: (1) Major neurocognitive disorder (2) Parkinson's disease (3) Dementia, vascular, with delusions (4) Dementia in Alzheimer's disease with delusions (5) Anxiety disorder (6) Impulse control disorder CAMERON ROSAS MD Jan 15, 2020 07:37
--- NOTE | 2020-01-15 07:54 | PDOC ---
Exam Note: Michael Note: This note is a late entry for 01/14/2020 covers elements not covered in my initial note. Subjective: The patient was seen face to face in the evening of 01/14/2020. Nursing report with Belinda BRASHER. He slept 4 hours previous night. He was intrusive previous night. Received Zyprexa in the morning, was quite psychotic, thought that a nursing staff was killed by someone. He was wanting to bag a baby. 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 Os saturations during previous night have been satisfactory. We did this given his history of sleep apnea, on CPAP which he is not using now. Review of Systems: Ambulation impaired. No CV, , pulmonary, eye, ENT system symptoms on review. Reliability poor. Mental Status Exam: Oriented to himself. Insight and judgment, recent and remote memory, attention and concentration, fund of knowledge is poor consistent with his diagnoses. Laboratory Data: Reviewed. Impression: Major neurocognitive disorder multifactorial possibly Lewy body vascular, Alzheimers with delusion, depression and behavioral disturbance. Anxiety disorder unspecified. Impulse control disorder unspecified. Rest unchanged. Plan: Continue psychotropics from initial note. Exelon patch is being increased. Maintain Depakote, melatonin, Seroquel, trazodone, Namenda for now. Assessment: Vital Signs/I&O: Vital Signs Date Time Temp Pulse Resp B/P (MAP) Pulse Ox O2 Delivery O2 Flow Rate FiO2 01/15/20 06:27 97.3 60 16 142/83 (102) 95 01/14/20 15:56 Room Air I & O 01/14/20 01/14/20 01/15/20 15:00 23:00 07:00 Intake Total 600 ml 360 ml Balance 600 ml 360 ml Current Medications: I have reviewed the current psychotropics carefully including drug interactions. Risk benefit ratio favors no change other than as noted in my dictated progress note. Diagnosis: Problems: (1) Major neurocognitive disorder (2) Parkinson's disease (3) Dementia, vascular, with delusions (4) Dementia in Alzheimer's disease with delusions (5) Anxiety disorder (6) Impulse control disorder CAMERON ROSAS MD Jan 15, 2020 07:54
[2020-01-15] MEDS: DIVALPROEX 125 MG CAP.SPRINK PO SCH (08:34)
[2020-01-15] MEDS: APIXABAN 5 MG TABLET. PO SCH ×2 (08:34→21:04)
[2020-01-15] MEDS: POTASSIUM CHLORIDE 20 MEQ TABLET.ER. PO SCH (08:34)
[2020-01-15] MEDS: DOCUSATE SODIUM 100 MG CAPSULE PO SCH (08:34)
[2020-01-15] MEDS: TIMOLOL 0.5% OPHTH SOLUTION 5ML BOTTLE. OU SCH ×2 (08:34→21:04)
[2020-01-15] MEDS: FUROSEMIDE 40 MG TABLET PO SCH (08:35)
[2020-01-15] MEDS: SENNOSIDES/DOCUSATE 8.6/50MG TABLET. PO SCH (08:35)
[2020-01-15] MEDS: CARBIDOPA/LEVODOPA 10/100MG TABLET PO SCH ×3 (08:35→21:03)
[2020-01-15] MEDS: MEMANTINE 5 MG TABLET. PO SCH ×2 (08:35→15:54)
[2020-01-15] MEDS: ASCORBIC ACID 500 MG TABLET PO SCH (08:35)
[2020-01-15] MEDS: QUEtiapine 25 MG TABLET. PO SCH ×4 (08:35→21:03)
[2020-01-15] MEDS: SERTRALINE 25 MG TABLET. PO SCH (08:35)
[2020-01-15] MEDS: RIVASTIGMINE 13.3MG PATCH. TD SCH (08:36)
[2020-01-15] MEDS: METOPROLOL TART IMMED RELEASE 25 MG TABLET PO SCH ×2 (09:00→21:03)
--- NOTE | 2020-01-15 10:39 | NUR ---
Pt is calm, confused, and compliant. No agitation, no aggression no hallucinations. He is compliant with his medications and assessment.
[2020-01-15 16:00] VITALS: BP 119/78
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
[2020-01-15] MEDS: MELATONIN 3 MG TABLET PO SCH (21:00)
[2020-01-15] MEDS: GABAPENTIN 300 MG CAPSULE. PO SCH (21:02)
[2020-01-15] MEDS: CYCLOBENZAPRINE 10 MG TABLET. PO SCH (21:03)
[2020-01-15] MEDS: ACETAMINOPHEN 500 MG TABLET PO SCH (21:03)
[2020-01-15] MEDS: DIVALPROEX ER 500 MG TAB.ER.24H PO SCH (21:04)
[2020-01-15] MEDS: ATORVASTATIN CALCIUM 20 MG TABLET PO SCH (21:04)
--- NOTE | 2020-01-15 22:47 | NUR ---
Pt has been wandering unit this evening. Pt became slightly anxious at times d/t a female patient yelling. Pt is delusional; stating that he is at work and was thrown a going away green party today. Compliant with whole medications.
[2020-01-16] MEDS: LEVOTHYROXINE 25 MCG TABLET. PO SCH (05:26)
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
[2020-01-16 06:13] VITALS: BP 156/97
--- NOTE | 2020-01-16 06:47 | PDOC ---
Exam Note: Michael Note: This note is a late entry for 01/15/2020 covers elements not covered in my initial note. Subjective: The patient was seen face to face in the evening of 01/15/2020. Nursing report with Gilma BRASHER. He slept 7 hours previous night. She remains confused. Previous night he felt he was at work. He did well during the day today till 4 p.m. and then was delusional, anxious, restless, more confused. These symptoms are consistent with his diagnosis of Lewy body dementia. He was then looking for his resistive to medications. Review of Systems: Ambulation impaired. No CV, , pulmonary, eye, ENT system symptoms on review. Mental Status Exam: Oriented to himself. Insight and judgment, recent and remote memory, attention and concentration, fund of knowledge is poor consistent with his diagnoses. Laboratory Data: Reviewed. Impression: Major neurocognitive disorder probably Lewy body vascular, Alzheimers with delusion, depression and behavioral disturbance. Anxiety disorder unspecified. Impulse control disorder unspecified. Rest unchanged. Plan: Continue psychotropics from initial note. Exelon patch is being increased. Namenda added. Maintain Depakote, melatonin, Seroquel, Neurontin, Zoloft along with Zyprexa p.r.n. and trazodone p.r.n. Assessment: Vital Signs/I&O: Vital Signs Date Time Temp Pulse Resp B/P (MAP) Pulse Ox O2 Delivery O2 Flow Rate FiO2 01/16/20 06:13 98.2 72 14 156/97 (116) 98 01/15/20 16:00 Room Air I & O 01/15/20 01/15/20 01/16/20 15:00 23:00 07:00 Intake Total 840 ml 480 ml Balance 840 ml 480 ml Current Medications: I have reviewed the current psychotropics carefully including drug interactions. Risk benefit ratio favors no change other than as noted in my dictated progress note. Diagnosis: Problems: (1) Major neurocognitive disorder (2) Parkinson's disease (3) Dementia, vascular, with delusions (4) Dementia in Alzheimer's disease with delusions (5) Anxiety disorder (6) Impulse control disorder CAMERON ROSAS MD Jan 16, 2020 06:47
[2020-01-16] MEDS: DIVALPROEX 125 MG CAP.SPRINK PO SCH (09:22)
[2020-01-16] MEDS: DOCUSATE SODIUM 100 MG CAPSULE PO SCH (09:22)
[2020-01-16] MEDS: POTASSIUM CHLORIDE 20 MEQ TABLET.ER. PO SCH (09:23)
[2020-01-16] MEDS: APIXABAN 5 MG TABLET. PO SCH ×2 (09:23→20:08)
[2020-01-16] MEDS: MEMANTINE 5 MG TABLET. PO SCH ×2 (09:24→16:14)
[2020-01-16] MEDS: SENNOSIDES/DOCUSATE 8.6/50MG TABLET. PO SCH (09:24)
[2020-01-16] MEDS: ASCORBIC ACID 500 MG TABLET PO SCH (09:24)
[2020-01-16] MEDS: CARBIDOPA/LEVODOPA 10/100MG TABLET PO SCH ×3 (09:24→20:11)
[2020-01-16] MEDS: TIMOLOL 0.5% OPHTH SOLUTION 5ML BOTTLE. OU SCH ×2 (09:24→20:08)
[2020-01-16] MEDS: QUEtiapine 25 MG TABLET. PO SCH ×4 (09:24→20:10)
[2020-01-16] MEDS: METOPROLOL TART IMMED RELEASE 25 MG TABLET PO SCH ×2 (09:24→20:10)
[2020-01-16] MEDS: FUROSEMIDE 40 MG TABLET PO SCH (09:24)
[2020-01-16] MEDS: RIVASTIGMINE 13.3MG PATCH. TD SCH (09:25)
[2020-01-16] MEDS: SERTRALINE 25 MG TABLET. PO SCH (09:25)
--- NOTE | 2020-01-16 10:18 | NUR ---
He is compliant with his medications and assessment. Pt is calm, confused, and compliant. No agitation, no aggression no hallucinations.
[2020-01-16 11:03] LABS: BASO # 0.1 x10^3/uL (0.0-0.2); BASO % 1 % (0-3); EOS # 0.3 x10^3/uL (0.0-0.7); EOS % 4 % (0-3); HEMATOCRIT 44.7 % (39.0-53.0); HEMOGLOBIN 15.4 g/dL (13.0-17.5); LYMPH # 2.2 x10^3/uL (1.0-4.8); LYMPH % 34 % (24-48); MEAN CORPUSCULAR HEMOGLOBIN 32 pg (25-35); MEAN CORPUSCULAR HGB CONC 35 g/dL (31-37); MEAN CORPUSCULAR VOLUME 92 fL (79-100); MONO # 0.5 x10^3/uL (0.0-1.1); MONO % 7 % (0-9); NEUT # 3.5 x10^3uL (1.8-7.7); NEUT % 54 % (31-73); PLATELET COUNT 139 x10^3/uL (140-400); RED BLOOD COUNT 4.87 x10^6/uL (4.30-5.70); RED CELL DISTRIBUTION WIDTH 14.4 % (11.5-14.5); WHITE BLOOD COUNT 6.5 x10^3/uL (4.0-11.0)
[2020-01-16 11:24] LABS: ALBUMIN 3.4 g/dL (3.4-5.0); ALBUMIN/GLOBULIN RATIO 0.9 (1.0-1.7); CREATININE 0.9 mg/dL (0.7-1.3); GFR 83.7; POTASSIUM 3.6 mmol/L (3.5-5.1); TOTAL BILIRUBIN 0.9 mg/dL (0.2-1.0)
--- NOTE | 2020-01-16 14:47 | NUR ---
Pt is sitting in the hallway. When approached by nursing staff pt was delusional stating "don't mention my pants it's embarrassing." He was speaking of his and his work schedule and he was unsure if he has to work tomorrow. He appeared paranoid stating "let me see your face first." PRN zyprexa given."
[2020-01-16 16:02] VITALS: BP 132/81
[2020-01-16] MEDS: DIVALPROEX ER 500 MG TAB.ER.24H PO SCH (20:08)
[2020-01-16] MEDS: GABAPENTIN 300 MG CAPSULE. PO SCH (20:09)
[2020-01-16] MEDS: ATORVASTATIN CALCIUM 20 MG TABLET PO SCH (20:09)
[2020-01-16] MEDS: CYCLOBENZAPRINE 10 MG TABLET. PO SCH (20:09)
[2020-01-16] MEDS: MELATONIN 3 MG TABLET PO SCH (20:11)
[2020-01-16] MEDS: ACETAMINOPHEN 500 MG TABLET PO SCH (20:11)
--- NOTE | 2020-01-16 22:07 | PDOC ---
Exam Note: Michael Note: Please also refer to the separate dictated note~for this date of service dictated separately.~Patient seen individually. Discussed the patient with Nursing staff reviewed the chart.~Reviewed interim history and current functioning. Reviewed vital signs,~Labs/ Radiology~and current medications noted below. Continue current treatment with the changes noted in the dictated addendum note Assessment: Vital Signs/I&O: Vital Signs Date Time Temp Pulse Resp B/P (MAP) Pulse Ox O2 Delivery O2 Flow Rate FiO2 01/16/20 20:10 64 132/81 01/16/20 16:02 98.3 20 95 01/15/20 16:00 Room Air I & O 01/15/20 01/15/20 01/16/20 15:00 23:00 07:00 Intake Total 840 ml 480 ml Balance 840 ml 480 ml Labs: Laboratory Tests Test 01/16/20 10:33 White Blood Count 6.5 x10^3/uL (4.0-11.0) Red Blood Count 4.87 x10^6/uL (4.30-5.70) Hemoglobin 15.4 g/dL (13.0-17.5) Hematocrit 44.7 % (39.0-53.0) Mean Corpuscular Volume 92 fL (79-100) Mean Corpuscular Hemoglobin 32 pg (25-35) Mean Corpuscular Hemoglobin Concent 35 g/dL (31-37) Red Cell Distribution Width 14.4 % (11.5-14.5) Platelet Count 139 x10^3/uL (140-400) L Neutrophils (%) (Auto) 54 % (31-73) Lymphocytes (%) (Auto) 34 % (24-48) Monocytes (%) (Auto) 7 % (0-9) Eosinophils (%) (Auto) 4 % (0-3) H Basophils (%) (Auto) 1 % (0-3) Neutrophils # (Auto) 3.5 x10^3uL (1.8-7.7) Lymphocytes # (Auto) 2.2 x10^3/uL (1.0-4.8) Monocytes # (Auto) 0.5 x10^3/uL (0.0-1.1) Eosinophils # (Auto) 0.3 x10^3/uL (0.0-0.7) Basophils # (Auto) 0.1 x10^3/uL (0.0-0.2) Sodium Level 141 mmol/L (136-145) Potassium Level 3.6 mmol/L (3.5-5.1) Chloride Level 104 mmol/L (98-107) Carbon Dioxide Level 32 mmol/L (21-32) Anion Gap 5 (6-14) L Blood Urea Nitrogen 13 mg/dL (8-26) Creatinine 0.9 mg/dL (0.7-1.3) Estimated GFR (Cockcroft-Gault) 83.7 BUN/Creatinine Ratio 14 (6-20) Glucose Level 127 mg/dL (70-99) H Calcium Level 9.0 mg/dL (8.5-10.1) Total Bilirubin 0.9 mg/dL (0.2-1.0) Aspartate Amino Transferase (AST) 22 U/L (15-37) Alanine Aminotransferase (ALT) 14 U/L (16-63) L Alkaline Phosphatase 78 U/L (46-116) Total Protein 7.0 g/dL (6.4-8.2) Albumin 3.4 g/dL (3.4-5.0) Albumin/Globulin Ratio 0.9 (1.0-1.7) L Current Medications: I have reviewed the current psychotropics carefully including drug interactions. Risk benefit ratio favors no change other than as noted in my dictated progress note. Diagnosis: Problems: (1) Major neurocognitive disorder (2) Parkinson's disease (3) Dementia, vascular, with delusions (4) Dementia in Alzheimer's disease with delusions (5) Anxiety disorder (6) Impulse control disorder CAMERON ROSAS MD Jan 16, 2020 22:07
[2020-01-16] MEDS: traZODone 100 MG TABLET. PO PRN (23:31)
[2020-01-17] MEDS: LEVOTHYROXINE 25 MCG TABLET. PO SCH (05:22)
[2020-01-17 05:55] VITALS: BP 156/92
[2020-01-17] MEDS: SERTRALINE 25 MG TABLET. PO SCH (09:02)
[2020-01-17] MEDS: ASCORBIC ACID 500 MG TABLET PO SCH (09:02)
[2020-01-17] MEDS: SENNOSIDES/DOCUSATE 8.6/50MG TABLET. PO SCH (09:02)
[2020-01-17] MEDS: QUEtiapine 25 MG TABLET. PO SCH ×3 (09:02→20:03)
[2020-01-17] MEDS: RIVASTIGMINE 13.3MG PATCH. TD SCH (09:02)
[2020-01-17] MEDS: MEMANTINE 10 MG TABLET. PO SCH ×2 (09:02→16:42)
[2020-01-17] MEDS: CARBIDOPA/LEVODOPA 10/100MG TABLET PO SCH ×3 (09:02→20:01)
[2020-01-17] MEDS: DIVALPROEX 125 MG CAP.SPRINK PO SCH (09:02)
[2020-01-17] MEDS: FUROSEMIDE 40 MG TABLET PO SCH (09:03)
[2020-01-17] MEDS: DOCUSATE SODIUM 100 MG CAPSULE PO SCH (09:03)
[2020-01-17] MEDS: METOPROLOL TART IMMED RELEASE 25 MG TABLET PO SCH ×2 (09:03→20:02)
[2020-01-17] MEDS: POTASSIUM CHLORIDE 20 MEQ TABLET.ER. PO SCH (09:03)
[2020-01-17] MEDS: APIXABAN 5 MG TABLET. PO SCH ×2 (09:03→20:02)
[2020-01-17] MEDS: TIMOLOL 0.5% OPHTH SOLUTION 5ML BOTTLE. OU SCH ×2 (09:54→20:00)
--- NOTE | 2020-01-17 10:28 | NUR ---
ALONZO faxed updates to [facility]. ALONZO to follow up later this week.
--- NOTE | 2020-01-17 10:48 | NUR ---
Today Patent is oriented to self, birthdate and place, but he is unsure why he is here. He stated the year is 2020. Patient is pleasant and cooperative. He was compliant with his medications taken whole, he took them one by one. He made a point of telling this nurse that he does not like waffles, pancakes or anything served with syrup. He talked about his lipid level and we talked about cholesterol levels. After breakfast was over he continued to sit in his chair in the dining room stating he was waiting for eggs and sausage. Nurse gave patient a nutrigrain bar, as he said he was still hungry. (he hadn't eaten the waffles at breakfast). Patient has asked multiple people for his black pants, he has been looking for them since this morning before breakfast. He is aware that he is at [employer] and stated he worked at for many years. 

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
[2020-01-17 16:00] VITALS: BP 111/69
[2020-01-17] MEDS ORDERED: QUEtiapine 50 MG TABLET. PO SCH (16:00)
[2020-01-17] MEDS: ATORVASTATIN CALCIUM 20 MG TABLET PO SCH (20:01)
[2020-01-17] MEDS: GABAPENTIN 300 MG CAPSULE. PO SCH (20:01)
[2020-01-17] MEDS: DIVALPROEX ER 500 MG TAB.ER.24H PO SCH (20:01)
[2020-01-17] MEDS: CYCLOBENZAPRINE 10 MG TABLET. PO SCH (20:02)
[2020-01-17] MEDS: MELATONIN 3 MG TABLET PO SCH (20:02)
[2020-01-17] MEDS: ACETAMINOPHEN 500 MG TABLET PO SCH (20:03)
--- NOTE | 2020-01-17 21:47 | PDOC ---
Exam Note: Michael Note: Please also refer to the separate dictated note~for this date of service dictated separately.~Patient seen individually. Discussed the patient with Nursing staff reviewed the chart.~Reviewed interim history and current functioning. Reviewed vital signs,~Labs/ Radiology~and current medications noted below. Continue current treatment with the changes noted in the dictated addendum note Assessment: Vital Signs/I&O: Vital Signs Date Time Temp Pulse Resp B/P (MAP) Pulse Ox O2 Delivery O2 Flow Rate FiO2 01/17/20 20:02 66 111/69 01/17/20 16:00 98.2 18 96 01/15/20 16:00 Room Air I & O 01/16/20 01/16/20 01/17/20 15:00 23:00 07:00 Intake Total 960 ml 600 ml Balance 960 ml 600 ml Current Medications: Meds: Current Medications Medications (Trade) Dose Ordered Sig/Gloria Route PRN Reason Start Time Stop Time Status Last Admin Dose Admin Memantine (Namenda) 10 mg 0900,1700 PO 01/17/20 09:00 01/17/20 16:42 Quetiapine Fumarate (SEROquel) 50 mg 1600 PO 01/17/20 16:00 01/17/20 16:43 I have reviewed the current psychotropics carefully including drug interactions. Risk benefit ratio favors no change other than as noted in my dictated progress note. Diagnosis: Problems: (1) Major neurocognitive disorder (2) Parkinson's disease (3) Dementia, vascular, with delusions (4) Dementia in Alzheimer's disease with delusions (5) Anxiety disorder (6) Impulse control disorder CAMERON ROSAS MD Jan 17, 2020 21:47
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
[2020-01-18] MEDS: LEVOTHYROXINE 25 MCG TABLET. PO SCH (05:19)
[2020-01-18 06:05] VITALS: BP 163/92
[2020-01-18 06:30] LABS: BASO # 0.1 x10^3/uL (0.0-0.2); BASO % 1 % (0-3); EOS # 0.3 x10^3/uL (0.0-0.7); EOS % 5 % (0-3); HEMATOCRIT 41.9 % (39.0-53.0); HEMOGLOBIN 14.7 g/dL (13.0-17.5); LYMPH # 2.9 x10^3/uL (1.0-4.8); LYMPH % 46 % (24-48); MEAN CORPUSCULAR HEMOGLOBIN 32 pg (25-35); MEAN CORPUSCULAR HGB CONC 35 g/dL (31-37); MEAN CORPUSCULAR VOLUME 92 fL (79-100); MONO # 0.5 x10^3/uL (0.0-1.1); MONO % 8 % (0-9); NEUT # 2.5 x10^3uL (1.8-7.7); NEUT % 40 % (31-73); PLATELET COUNT 119 x10^3/uL (140-400); RED BLOOD COUNT 4.55 x10^6/uL (4.30-5.70); RED CELL DISTRIBUTION WIDTH 14.3 % (11.5-14.5); WHITE BLOOD COUNT 6.3 x10^3/uL (4.0-11.0)
[2020-01-18 06:43] LABS: ALBUMIN 3.3 g/dL (3.4-5.0); CALCIUM 8.7 mg/dL (8.5-10.1); GFR 74.1; POTASSIUM 3.5 mmol/L (3.5-5.1); TOTAL BILIRUBIN 0.7 mg/dL (0.2-1.0); TOTAL PROTEIN 6.7 g/dL (6.4-8.2)
--- NOTE | 2020-01-18 07:41 | PDOC ---
Exam Note: Michael Note: This note is a late entry for 01/16/2020 covers elements not covered in my initial note. Subjective: The patient was seen face to face in the evening of 01/16/2020. Nursing report with Lindsey BRASHER. He slept 7-1/4 hours previous night. He has been confused, agitated, climbing on furniture. Received Zyprexa at 2.30 p.m., because of his marked psychotic symptoms. He is talking about going to work. Review of Systems: Ambulation impaired. No CV, , pulmonary, eye, ENT system symptoms on review. Mental Status Exam: Oriented to himself. Insight and judgment, recent and remote memory, attention and concentration, fund of knowledge is poor consistent with his diagnoses. Laboratory Data: Reviewed. Impression: Major neurocognitive disorder probably Lewy body vascular, Alzheimers with delusion, depression and behavioral disturbance. Anxiety disorder unspecified. Impulse control disorder unspecified. Rest unchanged. Plan: Continue psychotropics from initial note. Increase Namenda from 5 mg b.i.d. to 10 mg b.i.d. and 1600 hours Seroquel from 25 mg to 50 mg. Continue rest unchanged for now. Assessment: Vital Signs/I&O: Vital Signs Date Time Temp Pulse Resp B/P (MAP) Pulse Ox O2 Delivery O2 Flow Rate FiO2 01/18/20 06:05 96.8 65 18 163/92 (115) 95 01/15/20 16:00 Room Air I & O 01/17/20 01/17/20 01/18/20 15:00 23:00 07:00 Intake Total 840 ml 780 ml Balance 840 ml 780 ml Labs: Laboratory Tests Test 01/18/20 06:13 White Blood Count 6.3 x10^3/uL (4.0-11.0) Red Blood Count 4.55 x10^6/uL (4.30-5.70) Hemoglobin 14.7 g/dL (13.0-17.5) Hematocrit 41.9 % (39.0-53.0) Mean Corpuscular Volume 92 fL (79-100) Mean Corpuscular Hemoglobin 32 pg (25-35) Mean Corpuscular Hemoglobin Concent 35 g/dL (31-37) Red Cell Distribution Width 14.3 % (11.5-14.5) Platelet Count 119 x10^3/uL (140-400) L Neutrophils (%) (Auto) 40 % (31-73) Lymphocytes (%) (Auto) 46 % (24-48) Monocytes (%) (Auto) 8 % (0-9) Eosinophils (%) (Auto) 5 % (0-3) H Basophils (%) (Auto) 1 % (0-3) Neutrophils # (Auto) 2.5 x10^3uL (1.8-7.7) Lymphocytes # (Auto) 2.9 x10^3/uL (1.0-4.8) Monocytes # (Auto) 0.5 x10^3/uL (0.0-1.1) Eosinophils # (Auto) 0.3 x10^3/uL (0.0-0.7) Basophils # (Auto) 0.1 x10^3/uL (0.0-0.2) Sodium Level 144 mmol/L (136-145) Potassium Level 3.5 mmol/L (3.5-5.1) Chloride Level 105 mmol/L (98-107) Carbon Dioxide Level 33 mmol/L (21-32) H Anion Gap 6 (6-14) Blood Urea Nitrogen 13 mg/dL (8-26) Creatinine 1.0 mg/dL (0.7-1.3) Estimated GFR (Cockcroft-Gault) 74.1 BUN/Creatinine Ratio 13 (6-20) Glucose Level 100 mg/dL (70-99) H Calcium Level 8.7 mg/dL (8.5-10.1) Total Bilirubin 0.7 mg/dL (0.2-1.0) Aspartate Amino Transferase (AST) 20 U/L (15-37) Alanine Aminotransferase (ALT) 22 U/L (16-63) Alkaline Phosphatase 75 U/L (46-116) Total Protein 6.7 g/dL (6.4-8.2) Albumin 3.3 g/dL (3.4-5.0) L Albumin/Globulin Ratio 1.0 (1.0-1.7) Current Medications: Meds: Current Medications Medications (Trade) Dose Ordered Sig/Gloria Route PRN Reason Start Time Stop Time Status Last Admin Dose Admin Memantine (Namenda) 10 mg 0900,1700 PO 6/9/20 09:00 01/17/20 16:42 Quetiapine Fumarate (SEROquel) 50 mg 1600 PO 01/17/20 16:00 01/17/20 16:43 I have reviewed the current psychotropics carefully including drug interactions. Risk benefit ratio favors no change other than as noted in my dictated progress note. Diagnosis: Problems: (1) Major neurocognitive disorder (2) Parkinson's disease (3) Dementia, vascular, with delusions (4) Dementia in Alzheimer's disease with delusions (5) Anxiety disorder (6) Impulse control disorder CAMERON ROSAS MD Jan 18, 2020 07:41
--- NOTE | 2020-01-18 07:43 | PDOC ---
Exam Note: Michael Note: This note is a late entry for 01/17/2020 covers elements not covered in my initial note. Subjective: The patient was seen face to face in the evening of 01/17/2020. Nursing report with Ann BRASHER. He slept 5 hours previous night. He is compliant with medications. He is quite confused as I met with him in the evening, very paranoid, delusional, threatening me, stating I was a fascist. I was talking to an Afro-Polish patient and he seemed to misinterpret the situation in some way. At times he knows he is at [facility] but his mentation varies significantly even within the day consistent with his diagnosis of Lewy body dementia. He was talking about having accidents and quite paranoid. Review of Systems: Ambulation impaired. No CV, , pulmonary, eye, ENT system symptoms on review. Mental Status Exam: Oriented to himself. Insight and judgment, recent and remote memory, attention and concentration, fund of knowledge is poor consistent with his diagnoses. Laboratory Data: Reviewed. Impression: Major neurocognitive disorder probably Lewy body vascular, Alzheimers with delusion, depression and behavioral disturbance. Anxiety disorder unspecified. Impulse control disorder unspecified. Rest unchanged. Plan: Continue psychotropics from initial note. We have increased Namenda. We may need to increase the Seroquel further and change it to Risperdal if psychotic symptoms persist. Assessment: Vital Signs/I&O: Vital Signs Date Time Temp Pulse Resp B/P (MAP) Pulse Ox O2 Delivery O2 Flow Rate FiO2 01/18/20 06:05 96.8 65 18 163/92 (115) 95 01/15/20 16:00 Room Air I & O 01/17/20 01/17/20 01/18/20 15:00 23:00 07:00 Intake Total 840 ml 780 ml Balance 840 ml 780 ml Labs: Laboratory Tests Test 01/18/20 06:13 White Blood Count 6.3 x10^3/uL (4.0-11.0) Red Blood Count 4.55 x10^6/uL (4.30-5.70) Hemoglobin 14.7 g/dL (13.0-17.5) Hematocrit 41.9 % (39.0-53.0) Mean Corpuscular Volume 92 fL (79-100) Mean Corpuscular Hemoglobin 32 pg (25-35) Mean Corpuscular Hemoglobin Concent 35 g/dL (31-37) Red Cell Distribution Width 14.3 % (11.5-14.5) Platelet Count 119 x10^3/uL (140-400) L Neutrophils (%) (Auto) 40 % (31-73) Lymphocytes (%) (Auto) 46 % (24-48) Monocytes (%) (Auto) 8 % (0-9) Eosinophils (%) (Auto) 5 % (0-3) H Basophils (%) (Auto) 1 % (0-3) Neutrophils # (Auto) 2.5 x10^3uL (1.8-7.7) Lymphocytes # (Auto) 2.9 x10^3/uL (1.0-4.8) Monocytes # (Auto) 0.5 x10^3/uL (0.0-1.1) Eosinophils # (Auto) 0.3 x10^3/uL (0.0-0.7) Basophils # (Auto) 0.1 x10^3/uL (0.0-0.2) Sodium Level 144 mmol/L (136-145) Potassium Level 3.5 mmol/L (3.5-5.1) Chloride Level 105 mmol/L (98-107) Carbon Dioxide Level 33 mmol/L (21-32) H Anion Gap 6 (6-14) Blood Urea Nitrogen 13 mg/dL (8-26) Creatinine 1.0 mg/dL (0.7-1.3) Estimated GFR (Cockcroft-Gault) 74.1 BUN/Creatinine Ratio 13 (6-20) Glucose Level 100 mg/dL (70-99) H Calcium Level 8.7 mg/dL (8.5-10.1) Total Bilirubin 0.7 mg/dL (0.2-1.0) Aspartate Amino Transferase (AST) 20 U/L (15-37) Alanine Aminotransferase (ALT) 22 U/L (16-63) Alkaline Phosphatase 75 U/L (46-116) Total Protein 6.7 g/dL (6.4-8.2) Albumin 3.3 g/dL (3.4-5.0) L Albumin/Globulin Ratio 1.0 (1.0-1.7) Current Medications: Meds: Current Medications Medications (Trade) Dose Ordered Sig/Gloria Route PRN Reason Start Time Stop Time Status Last Admin Dose Admin Memantine (Namenda) 10 mg 0900,1700 PO 01/17/20 09:00 01/17/20 16:42 Quetiapine Fumarate (SEROquel) 50 mg 1600 PO 01/17/20 16:00 01/17/20 16:43 I have reviewed the current psychotropics carefully including drug interactions. Risk benefit ratio favors no change other than as noted in my dictated progress note. Diagnosis: Problems: (1) Major neurocognitive disorder (2) Parkinson's disease (3) Dementia, vascular, with delusions (4) Dementia in Alzheimer's disease with delusions (5) Anxiety disorder (6) Impulse control disorder CAMERON ROSAS MD Jan 18, 2020 07:42
[2020-01-18] MEDS: CARBIDOPA/LEVODOPA 10/100MG TABLET PO SCH ×3 (07:55→20:51)
[2020-01-18] MEDS: FUROSEMIDE 40 MG TABLET PO SCH (07:55)
[2020-01-18] MEDS: QUEtiapine 25 MG TABLET. PO SCH ×2 (07:55→12:57)
[2020-01-18] MEDS: SENNOSIDES/DOCUSATE 8.6/50MG TABLET. PO SCH (07:56)
[2020-01-18] MEDS: MEMANTINE 10 MG TABLET. PO SCH ×2 (07:56→17:25)
[2020-01-18] MEDS: APIXABAN 5 MG TABLET. PO SCH ×2 (07:56→20:51)
[2020-01-18] MEDS: POTASSIUM CHLORIDE 20 MEQ TABLET.ER. PO SCH (07:56)
[2020-01-18] MEDS: DIVALPROEX 125 MG CAP.SPRINK PO SCH (07:56)
[2020-01-18] MEDS: DOCUSATE SODIUM 100 MG CAPSULE PO SCH (07:56)
[2020-01-18] MEDS: SERTRALINE 25 MG TABLET. PO SCH (07:57)
[2020-01-18] MEDS: ASCORBIC ACID 500 MG TABLET PO SCH (07:57)
[2020-01-18] MEDS: METOPROLOL TART IMMED RELEASE 25 MG TABLET PO SCH ×2 (07:57→20:52)
[2020-01-18] MEDS: RIVASTIGMINE 13.3MG PATCH. TD SCH (07:57)
[2020-01-18] MEDS: TIMOLOL 0.5% OPHTH SOLUTION 5ML BOTTLE. OU SCH ×2 (07:58→20:50)
[2020-01-18] MEDS: ACETAMINOPHEN 325 MG TABLET PO PRN (08:10)
--- NOTE | 2020-01-18 08:12 | NUR ---
Patient reports back and neck pain. PRN tylenol provided per order for pain. Will continue to monitor.
--- NOTE | 2020-01-18 10:55 | NUR ---
Patient is pleasant and calm. Patient asked for nolan and eggs for breakfast. We were serving egg casserole and nurse called the kitchen to get him sausage links. He had previously told staff that he did not eat sausage so none was on his plate. He took a shower and shaved after breakfast. Patient had tylenol at breakfast but continues to report back pain. He was given a warm blanket to see if that was helpful.
[2020-01-18 15:49] VITALS: BP 151/81
--- NOTE | 2020-01-18 16:56 | NUR ---
SW followed up with pt to see if she wanted to participate in tx team and she would "definitely like that". SW informed pt that tx team starts at 0900 and SW will call her once pt case was being discussed.
[2020-01-18] MEDS: risperiDONE 0.25 MG TABLET. PO SCH (17:25)
--- NOTE | 2020-01-18 17:52 | NUR ---
Patient was going to other tables and bothering people that were eating after he was finished with his dinner. He went out of the dining room and into the hallway. Patient delusional stating he is going home tonight and needs to pack his stuff up. Patient was not angry when nurse told him he would stay tonight, he said he would just "hook his trailer to the truck tomorrow and head out early". Patient kept saying he was worried about David and Rosemary and what they would think. PRN zyprexa given for anxiety. Will continue to monitor.
[2020-01-18] MEDS: ATORVASTATIN CALCIUM 20 MG TABLET PO SCH (20:50)
[2020-01-18] MEDS: GABAPENTIN 300 MG CAPSULE. PO SCH (20:50)
[2020-01-18] MEDS: DIVALPROEX ER 500 MG TAB.ER.24H PO SCH (20:51)
[2020-01-18] MEDS: CYCLOBENZAPRINE 10 MG TABLET. PO SCH (20:51)
[2020-01-18] MEDS: MELATONIN 3 MG TABLET PO SCH (20:51)
[2020-01-18] MEDS: ACETAMINOPHEN 500 MG TABLET PO SCH (20:52)
--- NOTE | 2020-01-18 22:09 | PDOC ---
Exam Note: Michael Note: Please also refer to the separate dictated note~for this date of service dictated separately.~Patient seen individually. Discussed the patient with Nursing staff reviewed the chart.~Reviewed interim history and current functioning. Reviewed vital signs,~Labs/ Radiology~and current medications noted below. Continue current treatment with the changes noted in the dictated addendum note Assessment: Vital Signs/I&O: Vital Signs Date Time Temp Pulse Resp B/P (MAP) Pulse Ox O2 Delivery O2 Flow Rate FiO2 01/18/20 20:52 64 151/81 01/18/20 15:49 97.5 16 98 01/15/20 16:00 Room Air I & O 01/17/20 01/17/20 01/18/20 15:00 23:00 07:00 Intake Total 840 ml 780 ml Balance 840 ml 780 ml Labs: Laboratory Tests Test 01/18/20 06:13 White Blood Count 6.3 x10^3/uL (4.0-11.0) Red Blood Count 4.55 x10^6/uL (4.30-5.70) Hemoglobin 14.7 g/dL (13.0-17.5) Hematocrit 41.9 % (39.0-53.0) Mean Corpuscular Volume 92 fL (79-100) Mean Corpuscular Hemoglobin 32 pg (25-35) Mean Corpuscular Hemoglobin Concent 35 g/dL (31-37) Red Cell Distribution Width 14.3 % (11.5-14.5) Platelet Count 119 x10^3/uL (140-400) L Neutrophils (%) (Auto) 40 % (31-73) Lymphocytes (%) (Auto) 46 % (24-48) Monocytes (%) (Auto) 8 % (0-9) Eosinophils (%) (Auto) 5 % (0-3) H Basophils (%) (Auto) 1 % (0-3) Neutrophils # (Auto) 2.5 x10^3uL (1.8-7.7) Lymphocytes # (Auto) 2.9 x10^3/uL (1.0-4.8) Monocytes # (Auto) 0.5 x10^3/uL (0.0-1.1) Eosinophils # (Auto) 0.3 x10^3/uL (0.0-0.7) Basophils # (Auto) 0.1 x10^3/uL (0.0-0.2) Sodium Level 144 mmol/L (136-145) Potassium Level 3.5 mmol/L (3.5-5.1) Chloride Level 105 mmol/L (98-107) Carbon Dioxide Level 33 mmol/L (21-32) H Anion Gap 6 (6-14) Blood Urea Nitrogen 13 mg/dL (8-26) Creatinine 1.0 mg/dL (0.7-1.3) Estimated GFR (Cockcroft-Gault) 74.1 BUN/Creatinine Ratio 13 (6-20) Glucose Level 100 mg/dL (70-99) H Calcium Level 8.7 mg/dL (8.5-10.1) Total Bilirubin 0.7 mg/dL (0.2-1.0) Aspartate Amino Transferase (AST) 20 U/L (15-37) Alanine Aminotransferase (ALT) 22 U/L (16-63) Alkaline Phosphatase 75 U/L (46-116) Total Protein 6.7 g/dL (6.4-8.2) Albumin 3.3 g/dL (3.4-5.0) L Albumin/Globulin Ratio 1.0 (1.0-1.7) Current Medications: Meds: Current Medications Medications (Trade) Dose Ordered Sig/Gloria Route PRN Reason Start Time Stop Time Status Last Admin Dose Admin Risperidone (RisperDAL) 0.25 mg 0900,1300,1700 PO 01/18/20 17:00 01/18/20 17:25 I have reviewed the current psychotropics carefully including drug interactions. Risk benefit ratio favors no change other than as noted in my dictated progress note. 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
--- NOTE | 2020-01-19 00:18 | NUR ---
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 He said he has been working since 429 and since he is salaried he is working for free. At one time he thought on of the pts was a homeless woman and he was trying to find housing for her. He has been pleasant and cooperative. Meds were taken whole. He is easily redirected when necessary.
[2020-01-19 05:25] VITALS: BP 161/89
[2020-01-19] MEDS: LEVOTHYROXINE 25 MCG TABLET. PO SCH (05:53)
--- NOTE | 2020-01-19 07:18 | PN ---
DATE: 01/18/2020 PSYCHIATRIC PROGRESS NOTE This late entry 01/17 covers elements not covered in my initial note. SUBJECTIVE: I met with the patient evening of 01/17. Per [facility], the patient slept 5-1/2 hours previous night. He has been talking about fascists and other things, quite paranoid, delusional part of his Lewy body dementia. He is confusing some of the other female patients with people in his past acquaintances. He is compliant with his medication, believes he has a job here, obsessed about calling his . He followed me around the unit for a long time in the evening, even after medication rounds with him. He is extremely paranoid, believes people are being killed here, was grabbing my arm and when I redirected him, he accepted the redirection and apologized. Previously, he had been quite aggressive nevertheless as part of the paranoia which in some ways little better. REVIEW OF SYSTEMS: No CV, , pulmonary, eye, ENT system symptoms on review. Reliability poor. MENTAL STATUS EXAM: Oriented to himself and situation. Speech coherent, rapid at times. Abstraction fair, computation impaired, language function intact, attention span short. Mood and affect remains labile. LABORATORY DATA: Reviewed. IMPRESSION: Major neurocognitive disorder, early, probably Lewy body with delusion, depression, behavioral disturbance. Rest unchanged. PLAN: No change from initial note, but we will stop the entire dosage of Seroquel and start Risperdal 0.25 mg 9 a.m., 1:00 p.m., 5:00 p.m. as an atypical antipsychotic. I believe Risperdal will be more effective than Seroquel given the extent of his delusions which are fairly systematized at times, but does change during the day as part of his Lewy body dementia. We will make further adjustments as clinically indicated. CAMERON ROSAS MD DR: TARAS/cathy JOB#: [id number] / [id number]
[2020-01-19] MEDS: MEMANTINE 10 MG TABLET. PO SCH ×2 (09:17→17:00)
[2020-01-19] MEDS: RIVASTIGMINE 13.3MG PATCH. TD SCH (09:18)
[2020-01-19] MEDS: APIXABAN 5 MG TABLET. PO SCH ×2 (09:18→20:12)
[2020-01-19] MEDS: SENNOSIDES/DOCUSATE 8.6/50MG TABLET. PO SCH (09:18)
[2020-01-19] MEDS: POTASSIUM CHLORIDE 20 MEQ TABLET.ER. PO SCH (09:18)
[2020-01-19] MEDS: CARBIDOPA/LEVODOPA 10/100MG TABLET PO SCH ×3 (09:18→20:13)
[2020-01-19] MEDS: DIVALPROEX 125 MG CAP.SPRINK PO SCH (09:18)
[2020-01-19] MEDS: risperiDONE 0.25 MG TABLET. PO SCH ×3 (09:18→17:00)
[2020-01-19] MEDS: DOCUSATE SODIUM 100 MG CAPSULE PO SCH (09:18)
[2020-01-19] MEDS: ASCORBIC ACID 500 MG TABLET PO SCH (09:19)
[2020-01-19] MEDS: METOPROLOL TART IMMED RELEASE 25 MG TABLET PO SCH ×2 (09:19→20:13)
[2020-01-19] MEDS: FUROSEMIDE 40 MG TABLET PO SCH (09:19)
[2020-01-19] MEDS: SERTRALINE 25 MG TABLET. PO SCH (09:19)
[2020-01-19] MEDS: TIMOLOL 0.5% OPHTH SOLUTION 5ML BOTTLE. OU SCH ×2 (09:24→20:11)
--- NOTE | 2020-01-19 10:19 | NUR ---
Nocturnal DeSat Study Results from [facility] Intervention: 01/11-01/12 2200 96% 2241 91% 0100 92% 0400 97% 0700 98% advised ALONZO Hughes.
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
--- NOTE | 2020-01-19 11:32 | NUR ---
Patient talkative this morning. He stated that one of the songs in the relaxation group sounded like " music". He spoke to this nurse about his parents and a sister that . Patient is oriented x4 today, stating situation as "medication adjustment for Alzheimer disease". He has been calm and cooperative. He spent the morning calmly sitting in the day room then sitting in his room. Patient has had no delusions this day and has not been aggressive or agitated. He is compliant with his medications.
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
[2020-01-19 15:31] VITALS: BP 145/62
--- NOTE | 2020-01-19 17:08 | NUR ---
WOW has lost communication with system. IT is aware. Medication administered without scanning.
[2020-01-19] MEDS: CYCLOBENZAPRINE 10 MG TABLET. PO SCH (20:12)
[2020-01-19] MEDS: MELATONIN 3 MG TABLET PO SCH (20:12)
[2020-01-19] MEDS: ATORVASTATIN CALCIUM 20 MG TABLET PO SCH (20:12)
[2020-01-19] MEDS: GABAPENTIN 300 MG CAPSULE. PO SCH (20:12)
[2020-01-19] MEDS: ACETAMINOPHEN 500 MG TABLET PO SCH (20:13)
[2020-01-19] MEDS: DIVALPROEX ER 500 MG TAB.ER.24H PO SCH (20:13)
--- NOTE | 2020-01-19 22:26 | PDOC ---
Exam Note: Michael Note: Please also refer to the separate dictated note~for this date of service dictated separately.~Patient seen individually. Discussed the patient with Nursing staff reviewed the chart.~Reviewed interim history and current functioning. Reviewed vital signs,~Labs/ Radiology~and current medications noted below. Continue current treatment with the changes noted in the dictated addendum note Assessment: Vital Signs/I&O: Vital Signs Date Time Temp Pulse Resp B/P (MAP) Pulse Ox O2 Delivery O2 Flow Rate FiO2 01/19/20 20:13 63 145/62 01/19/20 15:31 97.6 16 98 01/19/20 05:25 Room Air I & O 01/18/20 01/18/20 01/19/20 14:59 22:59 06:59 Intake Total 1080 ml 480 ml Balance 1080 ml 480 ml Current Medications: I have reviewed the current psychotropics carefully including drug interactions. Risk benefit ratio favors no change other than as noted in my dictated progress note. Diagnosis: Problems: (1) Major neurocognitive disorder (2) Parkinson's disease (3) Dementia, vascular, with delusions (4) Dementia in Alzheimer's disease with delusions (5) Anxiety disorder (6) Impulse control disorder CAMERON ROSAS MD Jan 19, 2020 22:26
--- NOTE | 2020-01-19 23:28 | NUR ---
Early in shift pt was in day room quietly watching tv. His orientation was better tonight. Meds were taken whole without difficulty. 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 Since going to bed he has slept off and on, will jass Mata.
[2020-01-19] MEDS: traZODone 100 MG TABLET. PO PRN (23:43)
[2020-01-20] MEDS: LEVOTHYROXINE 25 MCG TABLET. PO SCH (05:21)
[2020-01-20 05:55] VITALS: BP 177/93
[2020-01-20] MEDS: DIVALPROEX 125 MG CAP.SPRINK PO SCH (07:58)
[2020-01-20] MEDS: APIXABAN 5 MG TABLET. PO SCH ×2 (07:58→20:27)
[2020-01-20] MEDS: DOCUSATE SODIUM 100 MG CAPSULE PO SCH (07:58)
[2020-01-20] MEDS: ASCORBIC ACID 500 MG TABLET PO SCH (07:58)
[2020-01-20] MEDS: POTASSIUM CHLORIDE 20 MEQ TABLET.ER. PO SCH (07:59)
[2020-01-20] MEDS: SERTRALINE 25 MG TABLET. PO SCH (07:59)
[2020-01-20] MEDS: FUROSEMIDE 40 MG TABLET PO SCH (07:59)
[2020-01-20] MEDS: SENNOSIDES/DOCUSATE 8.6/50MG TABLET. PO SCH (08:00)
[2020-01-20] MEDS: risperiDONE 0.25 MG TABLET. PO SCH ×3 (08:00→16:14)
[2020-01-20] MEDS: MEMANTINE 10 MG TABLET. PO SCH ×2 (08:00→16:14)
[2020-01-20] MEDS: METOPROLOL TART IMMED RELEASE 25 MG TABLET PO SCH ×2 (08:00→20:26)
[2020-01-20] MEDS: CARBIDOPA/LEVODOPA 10/100MG TABLET PO SCH ×3 (08:01→20:27)
[2020-01-20] MEDS: RIVASTIGMINE 13.3MG PATCH. TD SCH (08:02)
[2020-01-20] MEDS: TIMOLOL 0.5% OPHTH SOLUTION 5ML BOTTLE. OU SCH ×2 (08:02→20:26)
[2020-01-20 09:40] LABS: BASO # 0.1 x10^3/uL (0.0-0.2); BASO % 1 % (0-3); EOS # 0.3 x10^3/uL (0.0-0.7); EOS % 4 % (0-3); HEMATOCRIT 44.1 % (39.0-53.0); LYMPH # 2.6 x10^3/uL (1.0-4.8); LYMPH % 36 % (24-48); MEAN CORPUSCULAR HEMOGLOBIN 32 pg (25-35); MEAN CORPUSCULAR HGB CONC 34 g/dL (31-37); MEAN CORPUSCULAR VOLUME 93 fL (79-100); MONO # 0.4 x10^3/uL (0.0-1.1); MONO % 5 % (0-9); NEUT # 3.9 x10^3uL (1.8-7.7); NEUT % 55 % (31-73); PLATELET COUNT 126 x10^3/uL (140-400); RED BLOOD COUNT 4.72 x10^6/uL (4.30-5.70); RED CELL DISTRIBUTION WIDTH 14.5 % (11.5-14.5); WHITE BLOOD COUNT 7.2 x10^3/uL (4.0-11.0)
[2020-01-20 10:02] LABS: ALBUMIN 3.6 g/dL (3.4-5.0); GFR 74.1; POTASSIUM 3.7 mmol/L (3.5-5.1); TOTAL BILIRUBIN 0.7 mg/dL (0.2-1.0); TOTAL PROTEIN 7.2 g/dL (6.4-8.2)
[2020-01-20 15:44] VITALS: BP 138/74
--- NOTE | 2020-01-20 17:01 | NUR ---
Pt has been delusional today. Pt is aware a peer is leaving on Thursday but thinks this place is his place of work and peer should be recognized for his years of service. Pt announced at lunch about peer's leaving and asked other peers and staff if they had specific memories they would like to share about their time with peer. Pt also wants to have a celebration with the peers and staff on and asked for pen and paper to make a list of food items needed. Pt has been pleasant but intrusive at times. Has been compliant with meds and cares.
[2020-01-20] MEDS: ATORVASTATIN CALCIUM 20 MG TABLET PO SCH (20:26)
[2020-01-20] MEDS: ACETAMINOPHEN 500 MG TABLET PO SCH (20:26)
[2020-01-20] MEDS: GABAPENTIN 300 MG CAPSULE. PO SCH (20:26)
[2020-01-20] MEDS: DIVALPROEX ER 500 MG TAB.ER.24H PO SCH (20:27)
[2020-01-20] MEDS: MELATONIN 3 MG TABLET PO SCH (20:27)
[2020-01-20] MEDS: CYCLOBENZAPRINE 10 MG TABLET. PO SCH (20:27)
--- NOTE | 2020-01-20 22:20 | PDOC ---
Exam Note: Michael Note: Please also refer to the separate dictated note~for this date of service dictated separately.~Patient seen individually. Discussed the patient with Nursing staff reviewed the chart.~Reviewed interim history and current functioning. Reviewed vital signs,~Labs/ Radiology~and current medications noted below. Continue current treatment with the changes noted in the dictated addendum note Assessment: Vital Signs/I&O: Vital Signs Date Time Temp Pulse Resp B/P (MAP) Pulse Ox O2 Delivery O2 Flow Rate FiO2 01/20/20 20:26 77 138/74 01/20/20 15:44 98.1 16 96 01/19/20 05:25 Room Air I & O 01/19/20 01/19/20 01/20/20 15:00 23:00 07:00 Intake Total 360 ml 720 ml Balance 360 ml 720 ml Labs: Laboratory Tests Test 01/20/20 09:19 White Blood Count 7.2 x10^3/uL (4.0-11.0) Red Blood Count 4.72 x10^6/uL (4.30-5.70) Hemoglobin 15.0 g/dL (13.0-17.5) Hematocrit 44.1 % (39.0-53.0) Mean Corpuscular Volume 93 fL (79-100) Mean Corpuscular Hemoglobin 32 pg (25-35) Mean Corpuscular Hemoglobin Concent 34 g/dL (31-37) Red Cell Distribution Width 14.5 % (11.5-14.5) Platelet Count 126 x10^3/uL (140-400) L Neutrophils (%) (Auto) 55 % (31-73) Lymphocytes (%) (Auto) 36 % (24-48) Monocytes (%) (Auto) 5 % (0-9) Eosinophils (%) (Auto) 4 % (0-3) H Basophils (%) (Auto) 1 % (0-3) Neutrophils # (Auto) 3.9 x10^3uL (1.8-7.7) Lymphocytes # (Auto) 2.6 x10^3/uL (1.0-4.8) Monocytes # (Auto) 0.4 x10^3/uL (0.0-1.1) Eosinophils # (Auto) 0.3 x10^3/uL (0.0-0.7) Basophils # (Auto) 0.1 x10^3/uL (0.0-0.2) Sodium Level 142 mmol/L (136-145) Potassium Level 3.7 mmol/L (3.5-5.1) Chloride Level 104 mmol/L (98-107) Carbon Dioxide Level 33 mmol/L (21-32) H Anion Gap 5 (6-14) L Blood Urea Nitrogen 12 mg/dL (8-26) Creatinine 1.0 mg/dL (0.7-1.3) Estimated GFR (Cockcroft-Gault) 74.1 BUN/Creatinine Ratio 12 (6-20) Glucose Level 207 mg/dL (70-99) H Calcium Level 9.0 mg/dL (8.5-10.1) Total Bilirubin 0.7 mg/dL (0.2-1.0) Aspartate Amino Transferase (AST) 18 U/L (15-37) Alanine Aminotransferase (ALT) 28 U/L (16-63) Alkaline Phosphatase 83 U/L (46-116) Total Protein 7.2 g/dL (6.4-8.2) Albumin 3.6 g/dL (3.4-5.0) Albumin/Globulin Ratio 1.0 (1.0-1.7) Current Medications: I have reviewed the current psychotropics carefully including drug interactions. Risk benefit ratio favors no change other than as noted in my dictated progress note. Diagnosis: Problems: (1) Major neurocognitive disorder (2) Parkinson's disease (3) Dementia, vascular, with delusions (4) Dementia in Alzheimer's disease with delusions (5) Anxiety disorder (6) Impulse control disorder CAMERON ROSAS MD Jan 20, 2020 22:20
--- NOTE | 2020-01-20 22:59 | PN ---
DATE: 01/19/2020 PSYCHIATRIC PROGRESS NOTE This late entry 01/19/2020 covers elements not covered in my initial note. The patient was staffed at a treatment team meeting with the entire team including Gilma, RN; Domonique, social service staff and activity therapy staff. The patient's appetite 100%. The patient's , Mragy also attended the conference. He slept 5-1/2 hours on average, remains somewhat delusional and confused, but much less so than before. He seems to be less psychotic on the Risperdal. REVIEW OF SYSTEMS: No CV, , pulmonary, eye system symptoms on review. Ambulates up and down the hallway on his own. MENTAL STATUS EXAM: Oriented to himself. Insight, judgment, recent and remote memory, attention, concentration, fund of knowledge poor, consistent with his diagnosis. IMPRESSION: Major cognitive disorder, probably Lewy body with delusion, depression, behavioral disturbance; anxiety disorder, unspecified; impulse control disorder, unspecified. Rest unchanged. PLAN: Continue current psychotropics. Dr. Schofield is following from a neurological sign standpoint consequent to Parkinson's and we will see if the Sinemet can be reduced. Continue rest of the psychotropics per initial note. May need to increase the Risperdal as tolerated. MAN Juan ROSAS MD DR: TARAS/cathy JOB#: [id number] / [id number]
--- NOTE | 2020-01-20 23:16 | NUR ---
Pt located in the dayroom sitting quietly this evening. Pt calm and interactive. Continues to believe he is at work and stated that he is here to help with employee morale. Compliant with whole medications.
[2020-01-21] MEDS: LEVOTHYROXINE 25 MCG TABLET. PO SCH (05:02)
[2020-01-21 06:02] VITALS: BP 152/88
[2020-01-21] MEDS: TIMOLOL 0.5% OPHTH SOLUTION 5ML BOTTLE. OU SCH ×2 (08:15→19:52)
[2020-01-21] MEDS: DOCUSATE SODIUM 100 MG CAPSULE PO SCH (08:15)
[2020-01-21] MEDS: DIVALPROEX 125 MG CAP.SPRINK PO SCH (08:15)
[2020-01-21] MEDS: RIVASTIGMINE 13.3MG PATCH. TD SCH (08:15)
[2020-01-21] MEDS: POTASSIUM CHLORIDE 20 MEQ TABLET.ER. PO SCH (08:16)
[2020-01-21] MEDS: APIXABAN 5 MG TABLET. PO SCH ×2 (08:16→19:52)
[2020-01-21] MEDS: SENNOSIDES/DOCUSATE 8.6/50MG TABLET. PO SCH (08:16)
[2020-01-21] MEDS: SERTRALINE 25 MG TABLET. PO SCH (08:16)
[2020-01-21] MEDS: CARBIDOPA/LEVODOPA 10/100MG TABLET PO SCH ×3 (08:16→19:51)
[2020-01-21] MEDS: METOPROLOL TART IMMED RELEASE 25 MG TABLET PO SCH ×2 (08:17→19:51)
[2020-01-21] MEDS: risperiDONE 0.25 MG TABLET. PO SCH ×3 (08:17→17:00)
[2020-01-21] MEDS: FUROSEMIDE 40 MG TABLET PO SCH (08:17)
[2020-01-21] MEDS: ASCORBIC ACID 500 MG TABLET PO SCH (08:17)
[2020-01-21] MEDS: MEMANTINE 10 MG TABLET. PO SCH ×2 (08:17→17:00)
[2020-01-21 15:58] VITALS: BP 138/71
--- NOTE | 2020-01-21 17:12 | NUR ---
Pt up adl in halls and day room. out to meals and groups. Has been less intrusive today. Compliant with meds and cares.
[2020-01-21] MEDS: traZODone 100 MG TABLET. PO PRN (19:50)
[2020-01-21] MEDS: DIVALPROEX ER 500 MG TAB.ER.24H PO SCH (19:51)
[2020-01-21] MEDS: CYCLOBENZAPRINE 10 MG TABLET. PO SCH (19:51)
[2020-01-21] MEDS: MELATONIN 3 MG TABLET PO SCH (19:51)
[2020-01-21] MEDS: ACETAMINOPHEN 500 MG TABLET PO SCH (19:51)
[2020-01-21] MEDS: GABAPENTIN 300 MG CAPSULE. PO SCH (19:51)
[2020-01-21] MEDS: ATORVASTATIN CALCIUM 20 MG TABLET PO SCH (19:52)
--- NOTE | 2020-01-21 22:13 | PDOC ---
Exam Note: Michael Note: Please also refer to the separate dictated note~for this date of service dictated separately.~Patient seen individually. Discussed the patient with Nursing staff reviewed the chart.~Reviewed interim history and current functioning. Reviewed vital signs,~Labs/ Radiology~and current medications noted below. Continue current treatment with the changes noted in the dictated addendum note Assessment: Vital Signs/I&O: Vital Signs Date Time Temp Pulse Resp B/P (MAP) Pulse Ox O2 Delivery O2 Flow Rate FiO2 01/21/20 19:51 66 138/71 01/21/20 15:58 98.5 16 96 01/21/20 06:02 Room Air I & O 01/20/20 01/20/20 01/21/20 15:00 23:00 07:00 Intake Total 690 ml 660 ml Balance 690 ml 660 ml Current Medications: I have reviewed the current psychotropics carefully including drug interactions. Risk benefit ratio favors no change other than as noted in my dictated progress note. Diagnosis: Problems: (1) Major neurocognitive disorder (2) Parkinson's disease (3) Dementia, vascular, with delusions (4) Dementia in Alzheimer's disease with delusions (5) Anxiety disorder (6) Impulse control disorder CAMERON ROSAS MD Jan 21, 2020 22:13
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
[2020-01-22] MEDS: LEVOTHYROXINE 25 MCG TABLET. PO SCH (05:40)
[2020-01-22 06:09] VITALS: BP 152/86
[2020-01-22 07:29] LABS: HEMATOCRIT 42.1 % (39.0-53.0); HEMOGLOBIN 14.5 g/dL (13.0-17.5); RED BLOOD COUNT 4.54 x10^6/uL (4.30-5.70); RED CELL DISTRIBUTION WIDTH 14.6 % (11.5-14.5); WHITE BLOOD COUNT 6.5 x10^3/uL (4.0-11.0)
[2020-01-22] MEDS: SENNOSIDES/DOCUSATE 8.6/50MG TABLET. PO SCH (07:41)
[2020-01-22] MEDS: TIMOLOL 0.5% OPHTH SOLUTION 5ML BOTTLE. OU SCH ×2 (07:41→20:31)
[2020-01-22] MEDS: RIVASTIGMINE 13.3MG PATCH. TD SCH (07:41)
[2020-01-22] MEDS: SERTRALINE 25 MG TABLET. PO SCH (07:42)
[2020-01-22] MEDS: risperiDONE 0.25 MG TABLET. PO SCH ×3 (07:42→17:35)
[2020-01-22] MEDS: POTASSIUM CHLORIDE 20 MEQ TABLET.ER. PO SCH (07:42)
[2020-01-22] MEDS: DIVALPROEX 125 MG CAP.SPRINK PO SCH (07:42)
[2020-01-22] MEDS: CARBIDOPA/LEVODOPA 10/100MG TABLET PO SCH ×3 (07:42→20:32)
[2020-01-22] MEDS: FUROSEMIDE 40 MG TABLET PO SCH (07:42)
[2020-01-22] MEDS: METOPROLOL TART IMMED RELEASE 25 MG TABLET PO SCH ×2 (07:42→20:31)
[2020-01-22] MEDS: DOCUSATE SODIUM 100 MG CAPSULE PO SCH (07:42)
[2020-01-22] MEDS: APIXABAN 5 MG TABLET. PO SCH ×2 (07:43→20:31)
[2020-01-22] MEDS: MEMANTINE 10 MG TABLET. PO SCH ×2 (07:43→17:35)
[2020-01-22] MEDS: ASCORBIC ACID 500 MG TABLET PO SCH (07:43)
[2020-01-22 07:53] LABS: ALBUMIN 3.2 g/dL (3.4-5.0); ALBUMIN/GLOBULIN RATIO 0.9 (1.0-1.7); CALCIUM 8.8 mg/dL (8.5-10.1); GFR 74.1; POTASSIUM 3.1 mmol/L (3.5-5.1); TOTAL BILIRUBIN 0.7 mg/dL (0.2-1.0); TOTAL PROTEIN 6.6 g/dL (6.4-8.2)
[2020-01-22] MEDS ORDERED: POTASSIUM CHLORIDE 20 MEQ TABLET.ER. PO ONE (12:00)
--- NOTE | 2020-01-22 13:07 | PN ---
DATE: 01/21/2020 PSYCHIATRIC PROGRESS NOTE This late entry 01/21/2020 covers elements not covered in my initial note. SUBJECTIVE: I met with the patient evening of 01/21/2020. Per ANSHU Rao, the patient slept 4-1/4 hours previous night. He has been doing better, less paranoid, but still fixated that he is working here. He is less intrusive. REVIEW OF SYSTEMS: No CV, , pulmonary, eye, ENT system symptoms on review. MENTAL STATUS EXAM: Oriented to himself. Insight, judgment, recent memory is impaired. Language function intact. Attention span short. Mood and affect less labile. He slept 4-1/4 hours previous night. LABORATORY DATA: Reviewed. IMPRESSION: Unchanged from initial note. PLAN: No change from initial note. MAN Juan ROSAS MD DR: TARAS/cathy JOB#: [id number] / [id number]
--- NOTE | 2020-01-22 13:31 | PN ---
DATE: 01/20/2020 PSYCHIATRIC PROGRESS NOTE This late entry 01/20/2020 covers elements not covered in my initial note. SUBJECTIVE: I met with the patient evening of 01/20/2020. Per ANSHU Rao, the patient remains confused, thinks he is at work, wanting his job done. Slept 4-1/2 hours previous night. REVIEW OF SYSTEMS: No CV, , pulmonary, eye, ENT system symptoms on review. Reliability poor. MENTAL STATUS EXAM: Oriented to himself. Insight, judgment, recent memory is impaired, remote is better. Language function intact. Attention span short. Mood and affect less labile. He is less paranoid. LABORATORY DATA: Reviewed. IMPRESSION: Major neurocognitive disorder, Lewy body with delusion, depression, behavioral disturbance. Rest unchanged. PLAN: No change from initial note. MAN Juan ROSAS MD DR: TARAS/cathy JOB#: [id number] / [id number]
[2020-01-22 16:59] VITALS: BP 145/79
--- NOTE | 2020-01-22 18:21 | NUR ---
Pt up adl. Has been still delusional at times. Pt has been med compliant. Pt spoke with on phone. Visit went well.
[2020-01-22] MEDS: GABAPENTIN 300 MG CAPSULE. PO SCH (20:31)
[2020-01-22] MEDS: DIVALPROEX ER 500 MG TAB.ER.24H PO SCH (20:31)
[2020-01-22] MEDS: ACETAMINOPHEN 500 MG TABLET PO SCH (20:31)
[2020-01-22] MEDS: MELATONIN 3 MG TABLET PO SCH (20:31)
[2020-01-22] MEDS: traZODone 100 MG TABLET. PO PRN (20:31)
[2020-01-22] MEDS: CYCLOBENZAPRINE 10 MG TABLET. PO SCH (20:32)
[2020-01-22] MEDS: ATORVASTATIN CALCIUM 20 MG TABLET PO SCH (20:32)
--- NOTE | 2020-01-22 22:21 | PDOC ---
Exam Note: Michael Note: Please also refer to the separate dictated note~for this date of service dictated separately.~Patient seen individually. Discussed the patient with Nursing staff reviewed the chart.~Reviewed interim history and current functioning. Reviewed vital signs,~Labs/ Radiology~and current medications noted below. Continue current treatment with the changes noted in the dictated addendum note Assessment: Vital Signs/I&O: Vital Signs Date Time Temp Pulse Resp B/P (MAP) Pulse Ox O2 Delivery O2 Flow Rate FiO2 01/22/20 20:31 67 145/79 01/22/20 16:59 98.6 20 97 01/22/20 06:09 Room Air I & O 01/21/20 01/21/20 01/22/20 14:59 22:59 06:59 Intake Total 1200 ml 120 ml Balance 1200 ml 120 ml Labs: Laboratory Tests Test 01/22/20 06:47 White Blood Count 6.5 x10^3/uL (4.0-11.0) Red Blood Count 4.54 x10^6/uL (4.30-5.70) Hemoglobin 14.5 g/dL (13.0-17.5) Hematocrit 42.1 % (39.0-53.0) Mean Corpuscular Volume 93 fL (79-100) Mean Corpuscular Hemoglobin 32 pg (25-35) Mean Corpuscular Hemoglobin Concent 35 g/dL (31-37) Red Cell Distribution Width 14.6 % (11.5-14.5) H Platelet Count 117 x10^3/uL (140-400) L Sodium Level 143 mmol/L (136-145) Potassium Level 3.1 mmol/L (3.5-5.1) L Chloride Level 105 mmol/L (98-107) Carbon Dioxide Level 33 mmol/L (21-32) H Anion Gap 5 (6-14) L Blood Urea Nitrogen 16 mg/dL (8-26) Creatinine 1.0 mg/dL (0.7-1.3) Estimated GFR (Cockcroft-Gault) 74.1 BUN/Creatinine Ratio 16 (6-20) Glucose Level 151 mg/dL (70-99) H Calcium Level 8.8 mg/dL (8.5-10.1) Total Bilirubin 0.7 mg/dL (0.2-1.0) Aspartate Amino Transferase (AST) 20 U/L (15-37) Alanine Aminotransferase (ALT) 25 U/L (16-63) Alkaline Phosphatase 78 U/L (46-116) Total Protein 6.6 g/dL (6.4-8.2) Albumin 3.2 g/dL (3.4-5.0) L Albumin/Globulin Ratio 0.9 (1.0-1.7) L Current Medications: Meds: Current Medications Medications (Trade) Dose Ordered Sig/Gloria Route PRN Reason Start Time Stop Time Status Last Admin Dose Admin Potassium Chloride (Klor-Con) 20 meq 1X ONCE PO 01/22/20 12:00 01/22/20 12:01 DC 01/22/20 12:00 I have reviewed the current psychotropics carefully including drug interactions. Risk benefit ratio favors no change other than as noted in my dictated progress note. 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
--- NOTE | 2020-01-22 22:27 | NUR ---
Pt continues to be delusional thinking he is at work. Pt up at nurse's station multiple times asking for the respiratory phone. Compliant with whole medications.
[2020-01-23] MEDS: LEVOTHYROXINE 25 MCG TABLET. PO SCH (05:18)
[2020-01-23 06:01] VITALS: BP 158/54
[2020-01-23] MEDS: DOCUSATE SODIUM 100 MG CAPSULE PO SCH (09:07)
[2020-01-23] MEDS: MEMANTINE 10 MG TABLET. PO SCH ×2 (09:07→16:42)
[2020-01-23] MEDS: APIXABAN 5 MG TABLET. PO SCH ×2 (09:07→20:11)
[2020-01-23] MEDS: DIVALPROEX 125 MG CAP.SPRINK PO SCH (09:07)
[2020-01-23] MEDS: risperiDONE 0.25 MG TABLET. PO SCH ×3 (09:07→16:42)
[2020-01-23] MEDS: CARBIDOPA/LEVODOPA 10/100MG TABLET PO SCH ×3 (09:07→20:10)
[2020-01-23] MEDS: SENNOSIDES/DOCUSATE 8.6/50MG TABLET. PO SCH (09:08)
[2020-01-23] MEDS: ASCORBIC ACID 500 MG TABLET PO SCH (09:08)
[2020-01-23] MEDS: FUROSEMIDE 40 MG TABLET PO SCH (09:08)
[2020-01-23] MEDS: SERTRALINE 25 MG TABLET. PO SCH (09:08)
[2020-01-23] MEDS: METOPROLOL TART IMMED RELEASE 25 MG TABLET PO SCH ×2 (09:08→20:11)
[2020-01-23] MEDS: RIVASTIGMINE 13.3MG PATCH. TD SCH (09:09)
[2020-01-23] MEDS: TIMOLOL 0.5% OPHTH SOLUTION 5ML BOTTLE. OU SCH ×2 (09:09→20:11)
[2020-01-23] MEDS: POTASSIUM CHLORIDE 20 MEQ TABLET.ER. PO SCH (09:09)
--- NOTE | 2020-01-23 11:30 | NUR ---
Nursing note: Pt was asleep in his room when approached with morning meds. He woke easily and pleasantly. He was compliant with his meds whole and cooperative with his assessment. Pt continues to be delusional. He is currently up and walking the halls. Will continue to monitor.
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
[2020-01-23 16:12] VITALS: BP 105/66
[2020-01-23 20:08] VITALS: BP 122/68
[2020-01-23] MEDS: GABAPENTIN 300 MG CAPSULE. PO SCH (20:10)
[2020-01-23] MEDS: MELATONIN 3 MG TABLET PO SCH (20:10)
[2020-01-23] MEDS: ATORVASTATIN CALCIUM 20 MG TABLET PO SCH (20:10)
[2020-01-23] MEDS: CYCLOBENZAPRINE 10 MG TABLET. PO SCH (20:11)
[2020-01-23] MEDS: ACETAMINOPHEN 500 MG TABLET PO SCH (20:11)
[2020-01-23] MEDS: DIVALPROEX ER 500 MG TAB.ER.24H PO SCH (20:11)
--- NOTE | 2020-01-23 22:21 | PDOC ---
Exam Note: Michael Note: Please also refer to the separate dictated note~for this date of service dictated separately.~Patient seen individually. Discussed the patient with Nursing staff reviewed the chart.~Reviewed interim history and current functioning. Reviewed vital signs,~Labs/ Radiology~and current medications noted below. Continue current treatment with the changes noted in the dictated addendum note Assessment: Vital Signs/I&O: Vital Signs Date Time Temp Pulse Resp B/P (MAP) Pulse Ox O2 Delivery O2 Flow Rate FiO2 01/23/20 20:11 72 122/68 01/23/20 16:12 97.8 15 98 01/22/20 06:09 Room Air I & O 01/22/20 01/22/20 01/23/20 14:59 22:59 06:59 Intake Total 720 ml 420 ml Balance 720 ml 420 ml Current Medications: Meds: Current Medications Medications (Trade) Dose Ordered Sig/Gloria Route PRN Reason Start Time Stop Time Status Last Admin Dose Admin Potassium Chloride (Klor-Con) 40 meq DAILY PO 01/23/20 09:00 01/23/20 09:09 I have reviewed the current psychotropics carefully including drug interactions. Risk benefit ratio favors no change other than as noted in my dictated progress note. Diagnosis: Problems: (1) Major neurocognitive disorder (2) Parkinson's disease (3) Dementia, vascular, with delusions (4) Dementia in Alzheimer's disease with delusions (5) Anxiety disorder (6) Impulse control disorder CAMERON ROSAS MD Jan 23, 2020 22:21
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
[2020-01-24] MEDS: LEVOTHYROXINE 25 MCG TABLET. PO SCH (05:45)
[2020-01-24 06:33] VITALS: BP 146/87
[2020-01-24 06:40] LABS: CALCIUM 8.7 mg/dL (8.5-10.1); CREATININE 0.9 mg/dL (0.7-1.3); GFR 83.7; POTASSIUM 3.4 mmol/L (3.5-5.1); TOTAL BILIRUBIN 0.6 mg/dL (0.2-1.0); TOTAL PROTEIN 6.1 g/dL (6.4-8.2)
[2020-01-24 06:53] LABS: BASO # 0.1 x10^3/uL (0.0-0.2); BASO % 1 % (0-3); EOS # 0.4 x10^3/uL (0.0-0.7); EOS % 6 % (0-3); HEMATOCRIT 39.5 % (39.0-53.0); HEMOGLOBIN 13.4 g/dL (13.0-17.5); LYMPH # 3.2 x10^3/uL (1.0-4.8); LYMPH % 45 % (24-48); MEAN CORPUSCULAR HEMOGLOBIN 32 pg (25-35); MEAN CORPUSCULAR HGB CONC 34 g/dL (31-37); MEAN CORPUSCULAR VOLUME 93 fL (79-100); MONO # 0.6 x10^3/uL (0.0-1.1); MONO % 9 % (0-9); NEUT # 2.9 x10^3uL (1.8-7.7); NEUT % 40 % (31-73); PLATELET COUNT 115 x10^3/uL (140-400); RED BLOOD COUNT 4.24 x10^6/uL (4.30-5.70); RED CELL DISTRIBUTION WIDTH 14.7 % (11.5-14.5); WHITE BLOOD COUNT 7.1 x10^3/uL (4.0-11.0)
[2020-01-24] MEDS: risperiDONE 0.25 MG TABLET. PO SCH ×3 (08:53→16:36)
[2020-01-24] MEDS: METOPROLOL TART IMMED RELEASE 25 MG TABLET PO SCH ×2 (08:53→20:20)
[2020-01-24] MEDS: FUROSEMIDE 40 MG TABLET PO SCH (08:54)
[2020-01-24] MEDS: POTASSIUM CHLORIDE 20 MEQ TABLET.ER. PO SCH (08:54)
[2020-01-24] MEDS: ASCORBIC ACID 500 MG TABLET PO SCH (08:54)
[2020-01-24] MEDS: CARBIDOPA/LEVODOPA 10/100MG TABLET PO SCH ×3 (08:54→20:21)
[2020-01-24] MEDS: MEMANTINE 10 MG TABLET. PO SCH ×2 (08:54→16:36)
[2020-01-24] MEDS: APIXABAN 5 MG TABLET. PO SCH ×2 (08:55→20:20)
[2020-01-24] MEDS: SERTRALINE 25 MG TABLET. PO SCH (08:55)
[2020-01-24] MEDS: SENNOSIDES/DOCUSATE 8.6/50MG TABLET. PO SCH (08:55)
[2020-01-24] MEDS: TIMOLOL 0.5% OPHTH SOLUTION 5ML BOTTLE. OU SCH ×2 (08:55→21:00)
[2020-01-24] MEDS: DIVALPROEX 125 MG CAP.SPRINK PO SCH (08:55)
[2020-01-24] MEDS: RIVASTIGMINE 13.3MG PATCH. TD SCH (08:55)
[2020-01-24] MEDS: DOCUSATE SODIUM 100 MG CAPSULE PO SCH (08:55)
--- NOTE | 2020-01-24 12:15 | NUR ---
Nursing note: Pt in the day room for morning meds and assessment. He was happy, med compliant, and cooperative with his assessment. He was oriented X4 this morning. Pt has been walking around the unit this shift. He is currently in the dining room eating lunch. Will continue to monitor.
[2020-01-24 15:46] VITALS: BP 113/71
[2020-01-24] MEDS: ATORVASTATIN CALCIUM 20 MG TABLET PO SCH (20:19)
[2020-01-24] MEDS: MELATONIN 3 MG TABLET PO SCH (20:19)
[2020-01-24] MEDS: CYCLOBENZAPRINE 10 MG TABLET. PO SCH (20:20)
[2020-01-24] MEDS: GABAPENTIN 300 MG CAPSULE. PO SCH (20:21)
[2020-01-24] MEDS: ACETAMINOPHEN 500 MG TABLET PO SCH (20:21)
[2020-01-24] MEDS: DIVALPROEX ER 500 MG TAB.ER.24H PO SCH (20:21)
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
--- NOTE | 2020-01-24 22:13 | PN ---
DATE: 01/23/2020 PSYCHIATRIC PROGRESS NOTE This late entry of 01/23/2020 covers the elements not covered in my initial note. SUBJECTIVE: I met with the patient in the evening and staffed at a treatment team meeting with the entire team in the morning. Per ANSHU Trevino, the patient slept 6-1/2 hours previous night. He remains confused, delusional at times, well oriented again, all of this consistent with Lewy body dementia. In the evening, he called his and she shared with the nursing staff he was extremely psychotic, delusional, believing there was a gang here having anal sex amongst other things. REVIEW OF SYSTEMS: No CV, , pulmonary, eye system symptoms on review. MENTAL STATUS EXAM: Oriented to himself in the evening, more oriented in the morning. Insight, judgment, recent and remote memory, attention, concentration, fund of knowledge poor, consistent with his diagnosis mentioned in my initial note. IMPRESSION: Major neurocognitive disorder, Lewy body with delusion, depression, behavioral disturbance. Rest unchanged. PLAN: No change from initial note. He is currently on Risperdal 0.25 mg 9 a.m., 1:00 p.m., 5:00 p.m. and we will increase the 1:00 p.m. Risperdal to 0.375 mg. Adjust further as clinically indicated. MAN Juan ROSAS MD DR: TARAS/cathy JOB#: [id number] / [id number]
--- NOTE | 2020-01-24 22:17 | PDOC ---
Exam Note: Michael Note: Please also refer to the separate dictated note~for this date of service dictated separately.~Patient seen individually. Discussed the patient with Nursing staff reviewed the chart.~Reviewed interim history and current functioning. Reviewed vital signs,~Labs/ Radiology~and current medications noted below. Continue current treatment with the changes noted in the dictated addendum note Assessment: Vital Signs/I&O: Vital Signs Date Time Temp Pulse Resp B/P (MAP) Pulse Ox O2 Delivery O2 Flow Rate FiO2 01/24/20 20:20 60 113/71 01/24/20 15:46 98.0 20 96 01/22/20 06:09 Room Air I & O 01/23/20 01/23/20 01/24/20 15:00 23:00 07:00 Intake Total 720 ml 480 ml 100 ml Balance 720 ml 480 ml 100 ml Labs: Laboratory Tests Test 01/24/20 06:07 White Blood Count 7.1 x10^3/uL (4.0-11.0) Red Blood Count 4.24 x10^6/uL (4.30-5.70) L Hemoglobin 13.4 g/dL (13.0-17.5) Hematocrit 39.5 % (39.0-53.0) Mean Corpuscular Volume 93 fL (79-100) Mean Corpuscular Hemoglobin 32 pg (25-35) Mean Corpuscular Hemoglobin Concent 34 g/dL (31-37) Red Cell Distribution Width 14.7 % (11.5-14.5) H Platelet Count 115 x10^3/uL (140-400) L Neutrophils (%) (Auto) 40 % (31-73) Lymphocytes (%) (Auto) 45 % (24-48) Monocytes (%) (Auto) 9 % (0-9) Eosinophils (%) (Auto) 6 % (0-3) H Basophils (%) (Auto) 1 % (0-3) Neutrophils # (Auto) 2.9 x10^3uL (1.8-7.7) Lymphocytes # (Auto) 3.2 x10^3/uL (1.0-4.8) Monocytes # (Auto) 0.6 x10^3/uL (0.0-1.1) Eosinophils # (Auto) 0.4 x10^3/uL (0.0-0.7) Basophils # (Auto) 0.1 x10^3/uL (0.0-0.2) Sodium Level 144 mmol/L (136-145) Potassium Level 3.4 mmol/L (3.5-5.1) L Chloride Level 108 mmol/L (98-107) H Carbon Dioxide Level 35 mmol/L (21-32) H Anion Gap 1 (6-14) L Blood Urea Nitrogen 16 mg/dL (8-26) Creatinine 0.9 mg/dL (0.7-1.3) Estimated GFR (Cockcroft-Gault) 83.7 BUN/Creatinine Ratio 18 (6-20) Glucose Level 105 mg/dL (70-99) H Calcium Level 8.7 mg/dL (8.5-10.1) Total Bilirubin 0.6 mg/dL (0.2-1.0) Aspartate Amino Transferase (AST) 17 U/L (15-37) Alanine Aminotransferase (ALT) 22 U/L (16-63) Alkaline Phosphatase 73 U/L (46-116) Total Protein 6.1 g/dL (6.4-8.2) L Albumin 3.0 g/dL (3.4-5.0) L Albumin/Globulin Ratio 1.0 (1.0-1.7) Current Medications: Meds: Current Medications Medications (Trade) Dose Ordered Sig/Gloria Route PRN Reason Start Time Stop Time Status Last Admin Dose Admin Risperidone (RisperDAL) 0.25 mg 0900,1700 PO 01/24/20 09:00 01/24/20 16:36 Risperidone (RisperDAL) 0.375 mg 1300 PO 01/24/20 13:00 01/24/20 13:17 I have reviewed the current psychotropics carefully including drug interactions. Risk benefit ratio favors no change other than as noted in my dictated progress note. Diagnosis: Problems: (1) Major neurocognitive disorder (2) Parkinson's disease (3) Dementia, vascular, with delusions (4) Dementia in Alzheimer's disease with delusions (5) Anxiety disorder (6) Impulse control disorder CAMERON ROSAS MD Jan 24, 2020 22:17
--- NOTE | 2020-01-24 23:23 | NUR ---
Pt pleasant and interactive at time of assessment. Pt compliant with meds whole, tolerated well. 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 Pt now resting comfortably in bed.
[2020-01-25] MEDS: LEVOTHYROXINE 25 MCG TABLET. PO SCH (05:45)
[2020-01-25 06:03] VITALS: BP 163/89
[2020-01-25] MEDS: TIMOLOL 0.5% OPHTH SOLUTION 5ML BOTTLE. OU SCH ×2 (08:21→20:12)
[2020-01-25] MEDS: DOCUSATE SODIUM 100 MG CAPSULE PO SCH (08:22)
[2020-01-25] MEDS: RIVASTIGMINE 13.3MG PATCH. TD SCH (08:22)
[2020-01-25] MEDS: CARBIDOPA/LEVODOPA 10/100MG TABLET PO SCH ×3 (08:22→20:12)
[2020-01-25] MEDS: MEMANTINE 10 MG TABLET. PO SCH ×2 (08:22→17:02)
[2020-01-25] MEDS: POTASSIUM CHLORIDE 20 MEQ TABLET.ER. PO SCH (08:23)
[2020-01-25] MEDS: DIVALPROEX 125 MG CAP.SPRINK PO SCH (08:23)
[2020-01-25] MEDS: risperiDONE 0.25 MG TABLET. PO SCH ×3 (08:23→17:02)
[2020-01-25] MEDS: APIXABAN 5 MG TABLET. PO SCH ×2 (08:23→20:13)
[2020-01-25] MEDS: METOPROLOL TART IMMED RELEASE 25 MG TABLET PO SCH ×2 (08:23→20:13)
[2020-01-25] MEDS: ASCORBIC ACID 500 MG TABLET PO SCH (08:23)
[2020-01-25] MEDS: SERTRALINE 25 MG TABLET. PO SCH (08:23)
[2020-01-25] MEDS: SENNOSIDES/DOCUSATE 8.6/50MG TABLET. PO SCH (08:23)
[2020-01-25] MEDS: FUROSEMIDE 40 MG TABLET PO SCH (08:31)
[2020-01-25 15:41] VITALS: BP 137/82
[2020-01-25] MEDS ORDERED: POTASSIUM CHLORIDE 20 MEQ TABLET.ER. PO ONE (15:45)
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
[2020-01-25] MEDS: GABAPENTIN 300 MG CAPSULE. PO SCH (20:12)
[2020-01-25] MEDS: MELATONIN 3 MG TABLET PO SCH (20:12)
[2020-01-25] MEDS: CYCLOBENZAPRINE 10 MG TABLET. PO SCH (20:12)
[2020-01-25] MEDS: ACETAMINOPHEN 500 MG TABLET PO SCH (20:12)
[2020-01-25] MEDS: DIVALPROEX ER 500 MG TAB.ER.24H PO SCH (20:13)
[2020-01-25] MEDS: ATORVASTATIN CALCIUM 20 MG TABLET PO SCH (20:13)
--- NOTE | 2020-01-25 22:26 | PDOC ---
Exam Note: Michael Note: Please also refer to the separate dictated note~for this date of service dictated separately.~Patient seen individually. Discussed the patient with Nursing staff reviewed the chart.~Reviewed interim history and current functioning. Reviewed vital signs,~Labs/ Radiology~and current medications noted below. Continue current treatment with the changes noted in the dictated addendum note Assessment: Vital Signs/I&O: Vital Signs Date Time Temp Pulse Resp B/P (MAP) Pulse Ox O2 Delivery O2 Flow Rate FiO2 01/25/20 20:13 62 137/82 01/25/20 15:41 97.2 17 98 Room Air I & O 01/24/20 01/24/20 01/25/20 15:00 23:00 07:00 Intake Total 240 ml 480 ml Balance 240 ml 480 ml Current Medications: Meds: Current Medications Medications (Trade) Dose Ordered Sig/Gloria Route PRN Reason Start Time Stop Time Status Last Admin Dose Admin Potassium Chloride (Klor-Con) 40 meq 1X ONCE PO 01/25/20 15:45 01/25/20 15:46 DC 01/25/20 17:02 I have reviewed the current psychotropics carefully including drug interactions. Risk benefit ratio favors no change other than as noted in my dictated progress note. Diagnosis: Problems: (1) Major neurocognitive disorder (2) Parkinson's disease (3) Dementia, vascular, with delusions (4) Dementia in Alzheimer's disease with delusions (5) Anxiety disorder (6) Impulse control disorder CAMERON ROSAS MD Jan 25, 2020 22:26
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
[2020-01-26 05:16] VITALS: BP 156/87
[2020-01-26] MEDS: LEVOTHYROXINE 25 MCG TABLET. PO SCH (06:40)
[2020-01-26] MEDS: ACETAMINOPHEN 325 MG TABLET PO PRN (06:40)
[2020-01-26] MEDS: DOCUSATE SODIUM 100 MG CAPSULE PO SCH (08:31)
[2020-01-26] MEDS: SERTRALINE 25 MG TABLET. PO SCH (08:31)
[2020-01-26] MEDS: risperiDONE 0.25 MG TABLET. PO SCH ×3 (08:31→16:37)
[2020-01-26] MEDS: METOPROLOL TART IMMED RELEASE 25 MG TABLET PO SCH ×2 (08:34→20:02)
[2020-01-26] MEDS: FUROSEMIDE 40 MG TABLET PO SCH (08:34)
[2020-01-26] MEDS: CARBIDOPA/LEVODOPA 10/100MG TABLET PO SCH ×3 (08:35→20:02)
[2020-01-26] MEDS: RIVASTIGMINE 13.3MG PATCH. TD SCH (08:35)
[2020-01-26] MEDS: TIMOLOL 0.5% OPHTH SOLUTION 5ML BOTTLE. OU SCH ×2 (08:35→20:03)
[2020-01-26] MEDS: ASCORBIC ACID 500 MG TABLET PO SCH (08:35)
[2020-01-26] MEDS: APIXABAN 5 MG TABLET. PO SCH ×2 (08:35→20:02)
[2020-01-26] MEDS: SENNOSIDES/DOCUSATE 8.6/50MG TABLET. PO SCH (08:35)
[2020-01-26] MEDS: MEMANTINE 10 MG TABLET. PO SCH ×2 (08:35→16:37)
[2020-01-26] MEDS: POTASSIUM CHLORIDE 20 MEQ TABLET.ER. PO SCH (08:35)
[2020-01-26] MEDS: DIVALPROEX 125 MG CAP.SPRINK PO SCH (08:35)
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
[2020-01-26 15:45] VITALS: BP 158/91
--- NOTE | 2020-01-26 18:24 | NUR ---
Patient has been calm, compliant, delusional, and cooperative throughout this shift. He has been holding a delusion of working on the unit, and frequently asks staff questions such as when can he get the RT phone and asking about staffing. Patient is social with other high-functioning patients but can be intrusive with some patients at times. He is generally easily redirected. Will continue to monitor.
[2020-01-26] MEDS: CYCLOBENZAPRINE 10 MG TABLET. PO SCH (20:01)
[2020-01-26] MEDS: MELATONIN 3 MG TABLET PO SCH (20:02)
[2020-01-26] MEDS: DIVALPROEX ER 500 MG TAB.ER.24H PO SCH (20:02)
[2020-01-26] MEDS: ATORVASTATIN CALCIUM 20 MG TABLET PO SCH (20:02)
[2020-01-26] MEDS: ACETAMINOPHEN 500 MG TABLET PO SCH (20:02)
[2020-01-26] MEDS: GABAPENTIN 300 MG CAPSULE. PO SCH (20:03)
--- NOTE | 2020-01-26 22:16 | NUR ---
Pt sitting in day room, interacting with peers at shift change. Pt calm, pleasant, and social, joking with staff and peers. Pt cooperative with assessment and compliant with medications administered whole.
--- NOTE | 2020-01-26 22:45 | PDOC ---
Exam Note: Michael Note: Please also refer to the separate dictated note~for this date of service dictated separately.~Patient seen individually. Discussed the patient with Nursing staff reviewed the chart.~Reviewed interim history and current functioning. Reviewed vital signs,~Labs/ Radiology~and current medications noted below. Continue current treatment with the changes noted in the dictated addendum note Assessment: Vital Signs/I&O: Vital Signs Date Time Temp Pulse Resp B/P (MAP) Pulse Ox O2 Delivery O2 Flow Rate FiO2 01/26/20 20:02 67 158/91 01/26/20 15:45 98.4 18 96 01/25/20 15:41 Room Air I & O 01/25/20 01/25/20 01/26/20 15:00 23:00 07:00 Intake Total 960 ml 360 ml Balance 960 ml 360 ml Current Medications: I have reviewed the current psychotropics carefully including drug interactions. Risk benefit ratio favors no change other than as noted in my dictated progress note. Diagnosis: Problems: (1) Lewy body dementia with behavioral disturbance (2) Major neurocognitive disorder (3) Anxiety disorder (4) Impulse control disorder CAMERON ROSAS MD Jan 26, 2020 22:45
[2020-01-27] MEDS: LEVOTHYROXINE 25 MCG TABLET. PO SCH (05:17)
[2020-01-27 06:18] VITALS: BP 162/94
[2020-01-27 07:58] LABS: BASO # 0.1 x10^3/uL (0.0-0.2); BASO % 1 % (0-3); EOS # 0.4 x10^3/uL (0.0-0.7); EOS % 5 % (0-3); HEMATOCRIT 42.9 % (39.0-53.0); HEMOGLOBIN 14.8 g/dL (13.0-17.5); LYMPH # 2.6 x10^3/uL (1.0-4.8); LYMPH % 39 % (24-48); MEAN CORPUSCULAR HEMOGLOBIN 32 pg (25-35); MEAN CORPUSCULAR HGB CONC 35 g/dL (31-37); MEAN CORPUSCULAR VOLUME 93 fL (79-100); MONO # 0.6 x10^3/uL (0.0-1.1); MONO % 9 % (0-9); NEUT # 3.1 x10^3uL (1.8-7.7); NEUT % 46 % (31-73); PLATELET COUNT 125 x10^3/uL (140-400); RED BLOOD COUNT 4.62 x10^6/uL (4.30-5.70); RED CELL DISTRIBUTION WIDTH 14.8 % (11.5-14.5); WHITE BLOOD COUNT 6.8 x10^3/uL (4.0-11.0)
[2020-01-27 08:13] LABS: ALBUMIN 3.4 g/dL (3.4-5.0); CALCIUM 8.8 mg/dL (8.5-10.1); CREATININE 0.9 mg/dL (0.7-1.3); GFR 83.7; POTASSIUM 3.4 mmol/L (3.5-5.1); TOTAL BILIRUBIN 0.8 mg/dL (0.2-1.0); TOTAL PROTEIN 6.8 g/dL (6.4-8.2)
[2020-01-27] MEDS: DIVALPROEX 125 MG CAP.SPRINK PO SCH (08:34)
[2020-01-27] MEDS: FUROSEMIDE 40 MG TABLET PO SCH (08:34)
[2020-01-27] MEDS: POTASSIUM CHLORIDE 20 MEQ TABLET.ER. PO SCH (08:34)
[2020-01-27] MEDS: MEMANTINE 10 MG TABLET. PO SCH ×2 (08:34→16:15)
[2020-01-27] MEDS: CARBIDOPA/LEVODOPA 10/100MG TABLET PO SCH ×3 (08:35→19:58)
[2020-01-27] MEDS: SERTRALINE 25 MG TABLET. PO SCH (08:35)
[2020-01-27] MEDS: DOCUSATE SODIUM 100 MG CAPSULE PO SCH (08:35)
[2020-01-27] MEDS: ASCORBIC ACID 500 MG TABLET PO SCH (08:35)
[2020-01-27] MEDS: SENNOSIDES/DOCUSATE 8.6/50MG TABLET. PO SCH (08:35)
[2020-01-27] MEDS: METOPROLOL TART IMMED RELEASE 25 MG TABLET PO SCH ×2 (08:35→19:58)
[2020-01-27] MEDS: APIXABAN 5 MG TABLET. PO SCH ×2 (08:35→19:58)
[2020-01-27] MEDS: TIMOLOL 0.5% OPHTH SOLUTION 5ML BOTTLE. OU SCH ×2 (08:36→19:59)
[2020-01-27] MEDS: risperiDONE 0.25 MG TABLET. PO SCH ×3 (08:36→16:15)
[2020-01-27] MEDS: RIVASTIGMINE 13.3MG PATCH. TD SCH (08:36)
--- NOTE | 2020-01-27 15:37 | NUR ---
PATIENT VERY CALM TODAY. 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 PATIENT LED A GROUP TODAY AFTER HAVING ACTIVITY TIME. AMBULATING WELL AND HELPING OTHERS WHEN HEADING TO THE DINING SU. HAD SOME LEFT FOOT DISCOMFORT BUT STATED THAT "IT DISAPPEARS WHEN I DONT THINK ABOUT IT" HAS NOT COMPLAINED SINCE THIS MORNING.
[2020-01-27 15:52] VITALS: BP 157/82
[2020-01-27] MEDS: ACETAMINOPHEN 500 MG TABLET PO SCH (19:58)
[2020-01-27] MEDS: MELATONIN 3 MG TABLET PO SCH (19:58)
[2020-01-27] MEDS: GABAPENTIN 300 MG CAPSULE. PO SCH (19:58)
[2020-01-27] MEDS: ATORVASTATIN CALCIUM 20 MG TABLET PO SCH (19:58)
[2020-01-27] MEDS: DIVALPROEX ER 500 MG TAB.ER.24H PO SCH (19:58)
[2020-01-27] MEDS: CYCLOBENZAPRINE 10 MG TABLET. PO SCH (19:59)
--- NOTE | 2020-01-27 22:24 | NUR ---
Pt sitting in the day room at shift change. Pt calm, pleasant, interactive and social. 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 Pt cooperative with assessment and compliant with medications administered whole.
--- NOTE | 2020-01-27 22:54 | PDOC ---
Exam Note: Michael Note: Please also refer to the separate dictated note~for this date of service dictated separately.~Patient seen individually. Discussed the patient with Nursing staff reviewed the chart.~Reviewed interim history and current functioning. Reviewed vital signs,~Labs/ Radiology~and current medications noted below. Continue current treatment with the changes noted in the dictated addendum note Assessment: Vital Signs/I&O: Vital Signs Date Time Temp Pulse Resp B/P (MAP) Pulse Ox O2 Delivery O2 Flow Rate FiO2 01/27/20 19:58 64 157/82 01/27/20 15:52 97.4 18 97 01/25/20 15:41 Room Air I & O 01/26/20 01/26/20 01/27/20 15:00 23:00 07:00 Intake Total 840 ml 240 ml Balance 840 ml 240 ml Labs: Laboratory Tests Test 01/27/20 07:13 White Blood Count 6.8 x10^3/uL (4.0-11.0) Red Blood Count 4.62 x10^6/uL (4.30-5.70) Hemoglobin 14.8 g/dL (13.0-17.5) Hematocrit 42.9 % (39.0-53.0) Mean Corpuscular Volume 93 fL (79-100) Mean Corpuscular Hemoglobin 32 pg (25-35) Mean Corpuscular Hemoglobin Concent 35 g/dL (31-37) Red Cell Distribution Width 14.8 % (11.5-14.5) H Platelet Count 125 x10^3/uL (140-400) L Neutrophils (%) (Auto) 46 % (31-73) Lymphocytes (%) (Auto) 39 % (24-48) Monocytes (%) (Auto) 9 % (0-9) Eosinophils (%) (Auto) 5 % (0-3) H Basophils (%) (Auto) 1 % (0-3) Neutrophils # (Auto) 3.1 x10^3uL (1.8-7.7) Lymphocytes # (Auto) 2.6 x10^3/uL (1.0-4.8) Monocytes # (Auto) 0.6 x10^3/uL (0.0-1.1) Eosinophils # (Auto) 0.4 x10^3/uL (0.0-0.7) Basophils # (Auto) 0.1 x10^3/uL (0.0-0.2) Sodium Level 143 mmol/L (136-145) Potassium Level 3.4 mmol/L (3.5-5.1) L Chloride Level 105 mmol/L (98-107) Carbon Dioxide Level 35 mmol/L (21-32) H Anion Gap 3 (6-14) L Blood Urea Nitrogen 12 mg/dL (8-26) Creatinine 0.9 mg/dL (0.7-1.3) Estimated GFR (Cockcroft-Gault) 83.7 BUN/Creatinine Ratio 13 (6-20) Glucose Level 121 mg/dL (70-99) H Calcium Level 8.8 mg/dL (8.5-10.1) Total Bilirubin 0.8 mg/dL (0.2-1.0) Aspartate Amino Transferase (AST) 21 U/L (15-37) Alanine Aminotransferase (ALT) 26 U/L (16-63) Alkaline Phosphatase 82 U/L (46-116) Total Protein 6.8 g/dL (6.4-8.2) Albumin 3.4 g/dL (3.4-5.0) Albumin/Globulin Ratio 1.0 (1.0-1.7) Current Medications: I have reviewed the current psychotropics carefully including drug interactions. Risk benefit ratio favors no change other than as noted in my dictated progress note. Diagnosis: Problems: (1) Major neurocognitive disorder (2) Lewy body dementia with behavioral disturbance (3) Impulse control disorder (4) Anxiety disorder CAMERON ROSAS MD Jan 27, 2020 22:54
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
[2020-01-28] MEDS: LEVOTHYROXINE 25 MCG TABLET. PO SCH (05:15)
[2020-01-28 05:55] VITALS: BP 169/90
--- NOTE | 2020-01-28 07:49 | PDOC ---
Exam Note: Michael Note: This note is a late entry for 01/27/2020 covers elements not covered in my initial note. Subjective: The patient was seen individually in the evening of 01/27/2020. Per Venu BRASHER, he slept 7 hours previous night. He has been delusional, talking to nursing staff about seeing the human human resources office manager to fire and hire some new people. He is compliant with medications. He ambulates up and down the hallway and I met with him at some length in the evening. Review of Systems: Ambulation impaired consequent to Parkinsons. No CV, , pulmonary, eye, ENT system symptoms on review. Mental Status Exam: Oriented to himself and situation. Speech is coherent, has some latency. Abstraction is fair. Computation is impaired. Language function is intact. Attention span short. Mood and affect somewhat withdrawn. Laboratory Data: Reviewed. Impression: Major neurocognitive disorder Lewy body with delusion, depression and behavioral disturbance. Anxiety disorder unspecified. Impulse control disorder unspecified. Rest unchanged. Plan: No change from initial note. Continue Depakote, melatonin, Risperdal, gabapentin, Zoloft, Exelon patch, Namenda, and trazodone. Assessment: Vital Signs/I&O: Vital Signs Date Time Temp Pulse Resp B/P (MAP) Pulse Ox O2 Delivery O2 Flow Rate FiO2 01/28/20 05:55 97.6 62 20 169/90 (116) 96 01/25/20 15:41 Room Air I & O0 01/27/20 01/27/20 01/28/20 15:00 23:00 07:00 Intake Total 840 ml 600 ml Balance 840 ml 600 ml Current Medications: I have reviewed the current psychotropics carefully including drug interactions. Risk benefit ratio favors no change other than as noted in my dictated progress note. Diagnosis: Problems: (1) Lewy body dementia with behavioral disturbance (2) Major neurocognitive disorder (3) Anxiety disorder (4) Impulse control disorder CAMERON ROSAS MD Jan 28, 2020 07:49
[2020-01-28] MEDS: CARBIDOPA/LEVODOPA 10/100MG TABLET PO SCH ×3 (08:16→20:42)
[2020-01-28] MEDS: RIVASTIGMINE 13.3MG PATCH. TD SCH (08:16)
[2020-01-28] MEDS: DIVALPROEX 125 MG CAP.SPRINK PO SCH (08:16)
[2020-01-28] MEDS: TIMOLOL 0.5% OPHTH SOLUTION 5ML BOTTLE. OU SCH ×2 (08:16→20:41)
[2020-01-28] MEDS: DOCUSATE SODIUM 100 MG CAPSULE PO SCH (08:16)
[2020-01-28] MEDS: POTASSIUM CHLORIDE 20 MEQ TABLET.ER. PO SCH (08:17)
[2020-01-28] MEDS: SENNOSIDES/DOCUSATE 8.6/50MG TABLET. PO SCH (08:17)
[2020-01-28] MEDS: SERTRALINE 25 MG TABLET. PO SCH (08:17)
[2020-01-28] MEDS: ASCORBIC ACID 500 MG TABLET PO SCH (08:17)
[2020-01-28] MEDS: APIXABAN 5 MG TABLET. PO SCH ×2 (08:17→20:42)
[2020-01-28] MEDS: MEMANTINE 10 MG TABLET. PO SCH ×2 (08:18→17:00)
[2020-01-28] MEDS: FUROSEMIDE 40 MG TABLET PO SCH (08:18)
[2020-01-28] MEDS: METOPROLOL TART IMMED RELEASE 25 MG TABLET PO SCH ×2 (08:18→20:42)
[2020-01-28] MEDS: risperiDONE 0.25 MG TABLET. PO SCH ×3 (08:18→17:00)
[2020-01-28 16:14] VITALS: BP 137/83
--- NOTE | 2020-01-28 19:55 | NUR ---
Pt up adl to meals and has been out to day room and wandering in halls. Remains delusional today. Spoke with x2 about his job here. Redirected pt to hold off from calling for a third time. stated pt had called her numerous times with his cell phone during the day and night at facility. Pt has been compliant with meds and cares.
[2020-01-28] MEDS: GABAPENTIN 300 MG CAPSULE. PO SCH (20:42)
[2020-01-28] MEDS: ACETAMINOPHEN 500 MG TABLET PO SCH (20:42)
[2020-01-28] MEDS: DIVALPROEX ER 500 MG TAB.ER.24H PO SCH (20:42)
[2020-01-28] MEDS: CYCLOBENZAPRINE 10 MG TABLET. PO SCH (20:42)
[2020-01-28] MEDS: MELATONIN 3 MG TABLET PO SCH (20:42)
[2020-01-28] MEDS: ATORVASTATIN CALCIUM 20 MG TABLET PO SCH (20:43)
--- NOTE | 2020-01-28 22:31 | PDOC ---
Exam Note: Michael Note: Please also refer to the separate dictated note~for this date of service dictated separately.~Patient seen individually. Discussed the patient with Nursing staff reviewed the chart.~Reviewed interim history and current functioning. Reviewed vital signs,~Labs/ Radiology~and current medications noted below. Continue current treatment with the changes noted in the dictated addendum note Assessment: Vital Signs/I&O: Vital Signs Date Time Temp Pulse Resp B/P (MAP) Pulse Ox O2 Delivery O2 Flow Rate FiO2 01/28/20 20:42 98 137/83 01/28/20 16:14 98.0 18 97 Room Air I & O 01/27/20 01/27/20 01/28/20 14:59 22:59 06:59 Intake Total 840 ml 600 ml Balance 840 ml 600 ml Current Medications: Meds: Current Medications Medications (Trade) Dose Ordered Sig/Gloria Route PRN Reason Start Time Stop Time Status Last Admin Dose Admin Risperidone (RisperDAL) 0.25 mg DAILYWSUP PO 01/28/20 17:00 01/28/20 17:00 I have reviewed the current psychotropics carefully including drug interactions. Risk benefit ratio favors no change other than as noted in my dictated progress note. Diagnosis: Problems: (1) Major neurocognitive disorder (2) Lewy body dementia with behavioral disturbance (3) Impulse control disorder (4) Anxiety disorder (5) Parkinson's disease CAMERON ROSAS MD Jan 28, 2020 22:31
--- NOTE | 2020-01-28 23:00 | NUR ---
Pt has been calm, pleasant and interactive this evening. Compliant with whole medications. Pt continues to be delusional, thinking that he is at work. Pt has asked to use the RT phone numerous times this evening.
[2020-01-29] MEDS: LEVOTHYROXINE 25 MCG TABLET. PO SCH (05:26)
[2020-01-29 06:11] VITALS: BP 164/88
[2020-01-29] MEDS: TIMOLOL 0.5% OPHTH SOLUTION 5ML BOTTLE. OU SCH ×2 (08:08→20:47)
[2020-01-29] MEDS: SENNOSIDES/DOCUSATE 8.6/50MG TABLET. PO SCH (08:09)
[2020-01-29] MEDS: RIVASTIGMINE 13.3MG PATCH. TD SCH (08:09)
[2020-01-29] MEDS: SERTRALINE 25 MG TABLET. PO SCH (08:09)
[2020-01-29] MEDS: DIVALPROEX 125 MG CAP.SPRINK PO SCH (08:09)
[2020-01-29] MEDS: METOPROLOL TART IMMED RELEASE 25 MG TABLET PO SCH ×2 (08:09→20:46)
[2020-01-29] MEDS: FUROSEMIDE 40 MG TABLET PO SCH (08:10)
[2020-01-29] MEDS: CARBIDOPA/LEVODOPA 10/100MG TABLET PO SCH ×3 (08:10→20:46)
[2020-01-29] MEDS: POTASSIUM CHLORIDE 20 MEQ TABLET.ER. PO SCH (08:10)
[2020-01-29] MEDS: DOCUSATE SODIUM 100 MG CAPSULE PO SCH (08:10)
[2020-01-29] MEDS: MEMANTINE 10 MG TABLET. PO SCH ×2 (08:10→17:19)
[2020-01-29] MEDS: APIXABAN 5 MG TABLET. PO SCH ×2 (08:10→20:46)
[2020-01-29] MEDS: ASCORBIC ACID 500 MG TABLET PO SCH (08:10)
[2020-01-29] MEDS: risperiDONE 0.25 MG TABLET. PO SCH ×3 (08:12→17:20)
[2020-01-29 13:48] LABS: BASO # 0.1 x10^3/uL (0.0-0.2); BASO % 1 % (0-3); EOS # 0.3 x10^3/uL (0.0-0.7); EOS % 4 % (0-3); HEMATOCRIT 44.1 % (39.0-53.0); HEMOGLOBIN 15.1 g/dL (13.0-17.5); LYMPH # 3.2 x10^3/uL (1.0-4.8); LYMPH % 37 % (24-48); MEAN CORPUSCULAR HEMOGLOBIN 32 pg (25-35); MEAN CORPUSCULAR HGB CONC 34 g/dL (31-37); MEAN CORPUSCULAR VOLUME 93 fL (79-100); MONO # 0.7 x10^3/uL (0.0-1.1); MONO % 9 % (0-9); NEUT # 4.2 x10^3uL (1.8-7.7); NEUT % 49 % (31-73); PLATELET COUNT 135 x10^3/uL (140-400); RED BLOOD COUNT 4.74 x10^6/uL (4.30-5.70); RED CELL DISTRIBUTION WIDTH 14.6 % (11.5-14.5); WHITE BLOOD COUNT 8.5 x10^3/uL (4.0-11.0)
[2020-01-29 14:11] LABS: ALBUMIN 3.4 g/dL (3.4-5.0); CALCIUM 8.3 mg/dL (8.5-10.1); CREATININE 0.8 mg/dL (0.7-1.3); GFR 95.8; POTASSIUM 3.9 mmol/L (3.5-5.1); TOTAL BILIRUBIN 0.7 mg/dL (0.2-1.0); TOTAL PROTEIN 6.8 g/dL (6.4-8.2)
[2020-01-29 16:21] VITALS: BP 136/83
--- NOTE | 2020-01-29 17:39 | NUR ---
Pt has been up for meals and groups. In pleasant spirits. Compliant with meds and cares. Less verbal today about work.
[2020-01-29] MEDS: ATORVASTATIN CALCIUM 20 MG TABLET PO SCH (20:46)
[2020-01-29] MEDS: CYCLOBENZAPRINE 10 MG TABLET. PO SCH (20:46)
[2020-01-29] MEDS: MELATONIN 3 MG TABLET PO SCH (20:46)
[2020-01-29] MEDS: ACETAMINOPHEN 500 MG TABLET PO SCH (20:46)
[2020-01-29] MEDS: GABAPENTIN 300 MG CAPSULE. PO SCH (20:46)
[2020-01-29] MEDS: traZODone 100 MG TABLET. PO PRN (20:47)
[2020-01-29] MEDS: DIVALPROEX ER 500 MG TAB.ER.24H PO SCH (20:47)
--- NOTE | 2020-01-29 22:34 | PDOC ---
Exam Note: Michael Note: Please also refer to the separate dictated note~for this date of service dictated separately.~Patient seen individually. Discussed the patient with Nursing staff reviewed the chart.~Reviewed interim history and current functioning. Reviewed vital signs,~Labs/ Radiology~and current medications noted below. Continue current treatment with the changes noted in the dictated addendum note Assessment: Vital Signs/I&O: Vital Signs Date Time Temp Pulse Resp B/P (MAP) Pulse Ox O2 Delivery O2 Flow Rate FiO2 01/29/20 20:46 70 136/83 01/29/20 16:21 98.0 16 98 01/28/20 16:14 Room Air I & O 01/28/20 01/28/20 01/29/20 15:00 23:00 07:00 Intake Total 720 ml 240 ml 100 ml Balance 720 ml 240 ml 100 ml Labs: Laboratory Tests Test 01/29/20 13:15 White Blood Count 8.5 x10^3/uL (4.0-11.0) Red Blood Count 4.74 x10^6/uL (4.30-5.70) Hemoglobin 15.1 g/dL (13.0-17.5) Hematocrit 44.1 % (39.0-53.0) Mean Corpuscular Volume 93 fL (79-100) Mean Corpuscular Hemoglobin 32 pg (25-35) Mean Corpuscular Hemoglobin Concent 34 g/dL (31-37) Red Cell Distribution Width 14.6 % (11.5-14.5) H Platelet Count 135 x10^3/uL (140-400) L Neutrophils (%) (Auto) 49 % (31-73) Lymphocytes (%) (Auto) 37 % (24-48) Monocytes (%) (Auto) 9 % (0-9) Eosinophils (%) (Auto) 4 % (0-3) H Basophils (%) (Auto) 1 % (0-3) Neutrophils # (Auto) 4.2 x10^3uL (1.8-7.7) Lymphocytes # (Auto) 3.2 x10^3/uL (1.0-4.8) Monocytes # (Auto) 0.7 x10^3/uL (0.0-1.1) Eosinophils # (Auto) 0.3 x10^3/uL (0.0-0.7) Basophils # (Auto) 0.1 x10^3/uL (0.0-0.2) Sodium Level 142 mmol/L (136-145) Potassium Level 3.9 mmol/L (3.5-5.1) Chloride Level 106 mmol/L (98-107) Carbon Dioxide Level 31 mmol/L (21-32) Anion Gap 5 (6-14) L Blood Urea Nitrogen 12 mg/dL (8-26) Creatinine 0.8 mg/dL (0.7-1.3) Estimated GFR (Cockcroft-Gault) 95.8 BUN/Creatinine Ratio 15 (6-20) Glucose Level 155 mg/dL (70-99) H Calcium Level 8.3 mg/dL (8.5-10.1) L Total Bilirubin 0.7 mg/dL (0.2-1.0) Aspartate Amino Transferase (AST) 20 U/L (15-37) Alanine Aminotransferase (ALT) 17 U/L (16-63) Alkaline Phosphatase 92 U/L (46-116) Total Protein 6.8 g/dL (6.4-8.2) Albumin 3.4 g/dL (3.4-5.0) Albumin/Globulin Ratio 1.0 (1.0-1.7) Current Medications: Meds: Current Medications Medications (Trade) Dose Ordered Sig/Gloria Route PRN Reason Start Time Stop Time Status Last Admin Dose Admin Risperidone (RisperDAL) 0.375 mg DAILY PO 01/29/20 09:00 01/29/20 08:12 I have reviewed the current psychotropics carefully including drug interactions. Risk benefit ratio favors no change other than as noted in my dictated progress note. Diagnosis: Problems: (1) Major neurocognitive disorder (2) Parkinson's disease (3) Dementia, vascular, with delusions (4) Dementia in Alzheimer's disease with delusions (5) Anxiety disorder (6) Impulse control disorder (7) Lewy body dementia with behavioral disturbance CAMERON ROSAS MD Jan 29, 2020 22:34
--- NOTE | 2020-01-30 02:33 | NUR ---
Nursing Note Pt pleasant calm and cooperative. He is delusional and thinks that he works here. 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 Talks to other patients and staff as though he is on duty here. Compliant with meds denies complaints.
[2020-01-30] MEDS: LEVOTHYROXINE 25 MCG TABLET. PO SCH (05:11)
[2020-01-30 06:30] VITALS: BP 148/85
[2020-01-30] MEDS: RIVASTIGMINE 13.3MG PATCH. TD SCH (08:32)
[2020-01-30] MEDS: APIXABAN 5 MG TABLET. PO SCH ×2 (08:33→20:13)
[2020-01-30] MEDS: DOCUSATE SODIUM 100 MG CAPSULE PO SCH (08:33)
[2020-01-30] MEDS: SERTRALINE 25 MG TABLET. PO SCH (08:33)
[2020-01-30] MEDS: risperiDONE 0.25 MG TABLET. PO SCH ×3 (08:33→16:56)
[2020-01-30] MEDS: SENNOSIDES/DOCUSATE 8.6/50MG TABLET. PO SCH (08:33)
[2020-01-30] MEDS: CARBIDOPA/LEVODOPA 10/100MG TABLET PO SCH ×3 (08:33→20:12)
[2020-01-30] MEDS: MEMANTINE 10 MG TABLET. PO SCH ×2 (08:34→16:57)
[2020-01-30] MEDS: POTASSIUM CHLORIDE 20 MEQ TABLET.ER. PO SCH (08:34)
[2020-01-30] MEDS: TIMOLOL 0.5% OPHTH SOLUTION 5ML BOTTLE. OU SCH ×2 (08:34→20:11)
[2020-01-30] MEDS: FUROSEMIDE 40 MG TABLET PO SCH (08:34)
[2020-01-30] MEDS: DIVALPROEX 125 MG CAP.SPRINK PO SCH (08:34)
[2020-01-30] MEDS: ASCORBIC ACID 500 MG TABLET PO SCH (08:34)
[2020-01-30] MEDS: METOPROLOL TART IMMED RELEASE 25 MG TABLET PO SCH ×2 (08:34→20:13)
--- NOTE | 2020-01-30 10:05 | PDOC ---
Exam Note: Michael Note: This note is a late entry for 01/28/2020 covers elements not covered in my initial note. Subjective: The patient was seen individually in the evening of 01/28/2020. Per Maira BRASHER, he slept 5-3/4 hours previous night. He remains confused, more so in the evening, fixated on hiring new respiratory therapist. He has been talking about the budget constraints and behavior problems and hiring staff. Some of this is more evident in the evening and again consistent with his Lewy body dementia. Review of Systems: Ambulation impaired. No CV, , pulmonary, eye, ENT system symptoms on review. Mental Status Exam: Oriented to himself and situation. Speech is coherent, has some latency. Abstraction is fair. Computation is impaired. Language function is intact. Attention span short. Mood and affect somewhat withdrawn. Laboratory Data: Reviewed. Impression: Major neurocognitive disorder Lewy body with delusion, depression and behavioral disturbance. Anxiety disorder unspecified. Impulse control disorder unspecified. Rest unchanged. Plan: No change from initial note. The patient is currently on Risperdal 0.25 mg 0900 and 1700 and 0.375 mg at 1300. We will increase the 0900 Risperdal to 0.375 mg for his ongoing psychotic symptoms. Rest unchanged for now. Assessment: Vital Signs/I&O: Vital Signs Date Time Temp Pulse Resp B/P (MAP) Pulse Ox O2 Delivery O2 Flow Rate FiO2 01/30/20 08:34 63 148/85 01/30/20 06:30 97.6 16 97 01/28/20 16:14 Room Air I & O 01/29/20 01/29/20 01/30/20 14:59 22:59 06:59 Intake Total 700 ml 480 ml Balance 700 ml 480 ml Labs: Laboratory Tests Test 01/29/20 13:15 White Blood Count 8.5 x10^3/uL (4.0-11.0) Red Blood Count 4.74 x10^6/uL (4.30-5.70) Hemoglobin 15.1 g/dL (13.0-17.5) Hematocrit 44.1 % (39.0-53.0) Mean Corpuscular Volume 93 fL (79-100) Mean Corpuscular Hemoglobin 32 pg (25-35) Mean Corpuscular Hemoglobin Concent 34 g/dL (31-37) Red Cell Distribution Width 14.6 % (11.5-14.5) H Platelet Count 135 x10^3/uL (140-400) L Neutrophils (%) (Auto) 49 % (31-73) Lymphocytes (%) (Auto) 37 % (24-48) Monocytes (%) (Auto) 9 % (0-9) Eosinophils (%) (Auto) 4 % (0-3) H Basophils (%) (Auto) 1 % (0-3) Neutrophils # (Auto) 4.2 x10^3uL (1.8-7.7) Lymphocytes # (Auto) 3.2 x10^3/uL (1.0-4.8) Monocytes # (Auto) 0.7 x10^3/uL (0.0-1.1) Eosinophils # (Auto) 0.3 x10^3/uL (0.0-0.7) Basophils # (Auto) 0.1 x10^3/uL (0.0-0.2) Sodium Level 142 mmol/L (136-145) Potassium Level 3.9 mmol/L (3.5-5.1) Chloride Level 106 mmol/L (98-107) Carbon Dioxide Level 31 mmol/L (21-32) Anion Gap 5 (6-14) L Blood Urea Nitrogen 12 mg/dL (8-26) Creatinine 0.8 mg/dL (0.7-1.3) Estimated GFR (Cockcroft-Gault) 95.8 BUN/Creatinine Ratio 15 (6-20) Glucose Level 155 mg/dL (70-99) H Calcium Level 8.3 mg/dL (8.5-10.1) L Total Bilirubin 0.7 mg/dL (0.2-1.0) Aspartate Amino Transferase (AST) 20 U/L (15-37) Alanine Aminotransferase (ALT) 17 U/L (16-63) Alkaline Phosphatase 92 U/L (46-116) Total Protein 6.8 g/dL (6.4-8.2) Albumin 3.4 g/dL (3.4-5.0) Albumin/Globulin Ratio 1.0 (1.0-1.7) Current Medications: I have reviewed the current psychotropics carefully including drug interactions. Risk benefit ratio favors no change other than as noted in my dictated progress note. Diagnosis: Problems: (1) Major neurocognitive disorder (2) Parkinson's disease (3) Anxiety disorder (4) Impulse control disorder (5) Lewy body dementia with behavioral disturbance (6) Dementia, vascular, with delusions CAMERON ROSAS MD Jan 30, 2020 10:05
--- NOTE | 2020-01-30 10:32 | PDOC ---
Exam Note: Michael Note: This note is a late entry for 01/29/2020 covers elements not covered in my initial note. Subjective: The patient was seen individually in the evening of 01/29/2020. Per Maira BRASHER, he slept 6-1/2 hours previous night. The patient followed me around the unit. He wanted to talk at length extensively, was quite delusional, again about hiring staff members and addressing some of their inability to take care of the patients needs. I met him in the evening and this is the time he gets more paranoid, delusional. We have increased the Risperdal. We will wait and see how he does. Review of Systems: Ambulation impaired. No CV, , pulmonary, eye, ENT system symptoms on review. Mental Status Exam: Oriented to himself and situation. He gets more paranoid, delusional. Speech is coherent, has some latency. Abstraction is fair. Computation is impaired. Language function is intact. Attention span short. Mood and affect somewhat withdrawn. Laboratory Data: Reviewed. Impression: Major neurocognitive disorder Lewy body with delusion, depression and behavioral disturbance. Anxiety disorder unspecified. Impulse control disorder unspecified. Rest unchanged. Plan: No change from initial note as mentioned above. Assessment: Vital Signs/I&O: Vital Signs Date Time Temp Pulse Resp B/P (MAP) Pulse Ox O2 Delivery O2 Flow Rate FiO2 01/30/20 08:34 63 148/85 01/30/20 06:30 97.6 16 97 01/28/20 16:14 Room Air I & O 01/29/20 01/29/20 01/30/20 14:59 22:59 06:59 Intake Total 700 ml 480 ml Balance 700 ml 480 ml Labs: Laboratory Tests Test 01/29/20 13:15 White Blood Count 8.5 x10^3/uL (4.0-11.0) Red Blood Count 4.74 x10^6/uL (4.30-5.70) Hemoglobin 15.1 g/dL (13.0-17.5) Hematocrit 44.1 % (39.0-53.0) Mean Corpuscular Volume 93 fL (79-100) Mean Corpuscular Hemoglobin 32 pg (25-35) Mean Corpuscular Hemoglobin Concent 34 g/dL (31-37) Red Cell Distribution Width 14.6 % (11.5-14.5) H Platelet Count 135 x10^3/uL (140-400) L Neutrophils (%) (Auto) 49 % (31-73) Lymphocytes (%) (Auto) 37 % (24-48) Monocytes (%) (Auto) 9 % (0-9) Eosinophils (%) (Auto) 4 % (0-3) H Basophils (%) (Auto) 1 % (0-3) Neutrophils # (Auto) 4.2 x10^3uL (1.8-7.7) Lymphocytes # (Auto) 3.2 x10^3/uL (1.0-4.8) Monocytes # (Auto) 0.7 x10^3/uL (0.0-1.1) Eosinophils # (Auto) 0.3 x10^3/uL (0.0-0.7) Basophils # (Auto) 0.1 x10^3/uL (0.0-0.2) Sodium Level 142 mmol/L (136-145) Potassium Level 3.9 mmol/L (3.5-5.1) Chloride Level 106 mmol/L (98-107) Carbon Dioxide Level 31 mmol/L (21-32) Anion Gap 5 (6-14) L Blood Urea Nitrogen 12 mg/dL (8-26) Creatinine 0.8 mg/dL (0.7-1.3) Estimated GFR (Cockcroft-Gault) 95.8 BUN/Creatinine Ratio 15 (6-20) Glucose Level 155 mg/dL (70-99) H Calcium Level 8.3 mg/dL (8.5-10.1) L Total Bilirubin 0.7 mg/dL (0.2-1.0) Aspartate Amino Transferase (AST) 20 U/L (15-37) Alanine Aminotransferase (ALT) 17 U/L (16-63) Alkaline Phosphatase 92 U/L (46-116) Total Protein 6.8 g/dL (6.4-8.2) Albumin 3.4 g/dL (3.4-5.0) Albumin/Globulin Ratio 1.0 (1.0-1.7) Current Medications: I have reviewed the current psychotropics carefully including drug interactions. Risk benefit ratio favors no change other than as noted in my dictated progress note. Diagnosis: Problems: (1) Major neurocognitive disorder (2) Parkinson's disease (3) Dementia, vascular, with delusions (4) Anxiety disorder (5) Impulse control disorder (6) Lewy body dementia with behavioral disturbance CAMERON ROSAS MD Jan 30, 2020 10:32
--- NOTE | 2020-01-30 14:48 | NUR ---
Patient has been calm, compliant, delusional, and cooperative throughout this shift. 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 Patient is mildly confused to place, stating that we were in [place], but in [facility]; he did correctly name the hospital. Patient has been social with staff and peers, and actively participates in groups. Will continue to monitor.
[2020-01-30 16:13] VITALS: BP 124/73
[2020-01-30] MEDS: GABAPENTIN 300 MG CAPSULE. PO SCH (20:11)
[2020-01-30] MEDS: traZODone 100 MG TABLET. PO PRN (20:11)
[2020-01-30] MEDS: ATORVASTATIN CALCIUM 20 MG TABLET PO SCH (20:12)
[2020-01-30] MEDS: DIVALPROEX ER 500 MG TAB.ER.24H PO SCH (20:12)
[2020-01-30] MEDS: MELATONIN 3 MG TABLET PO SCH (20:12)
[2020-01-30] MEDS: ACETAMINOPHEN 500 MG TABLET PO SCH (20:12)
[2020-01-30] MEDS: CYCLOBENZAPRINE 10 MG TABLET. PO SCH (20:13)
--- NOTE | 2020-01-30 22:19 | PDOC ---
Exam Note: Michael Note: Please also refer to the separate dictated note~for this date of service dictated separately.~Patient seen individually. Discussed the patient with Nursing staff reviewed the chart.~Reviewed interim history and current functioning. Reviewed vital signs,~Labs/ Radiology~and current medications noted below. Continue current treatment with the changes noted in the dictated addendum note Assessment: Vital Signs/I&O: Vital Signs Date Time Temp Pulse Resp B/P (MAP) Pulse Ox O2 Delivery O2 Flow Rate FiO2 01/30/20 20:13 62 124/73 01/30/20 16:13 97.4 17 98 01/28/20 16:14 Room Air I & O 01/29/20 01/29/20 01/30/20 15:00 23:00 07:00 Intake Total 700 ml 480 ml Balance 700 ml 480 ml Current Medications: I have reviewed the current psychotropics carefully including drug interactions. Risk benefit ratio favors no change other than as noted in my dictated progress note. Diagnosis: Problems: (1) Major neurocognitive disorder (2) Parkinson's disease (3) Anxiety disorder (4) Impulse control disorder (5) Lewy body dementia with behavioral disturbance CAMERON ROSAS MD Jan 30, 2020 22:19
--- NOTE | 2020-01-30 23:12 | NUR ---
Nursing Note Pt is pleasant and cooperative. 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 Social with staff and peers.
--- NOTE | 2020-01-31 04:00 | NUR ---
Nursing Note Pt given a checklist for RT competencies found on the internet and a pt handbook to keep him occupied. Had been asking for a policy and procedure manual on both shifts. Pt seemed to be satisfied with the information and went to his room to read. Social with peers and staff.
[2020-01-31] MEDS: LEVOTHYROXINE 25 MCG TABLET. PO SCH (05:52)
[2020-01-31 06:22] VITALS: BP 158/94
[2020-01-31 07:32] LABS: BASO # 0.1 x10^3/uL (0.0-0.2); BASO % 1 % (0-3); EOS # 0.3 x10^3/uL (0.0-0.7); EOS % 5 % (0-3); HEMATOCRIT 41.4 % (39.0-53.0); HEMOGLOBIN 14.1 g/dL (13.0-17.5); LYMPH # 2.5 x10^3/uL (1.0-4.8); LYMPH % 37 % (24-48); MEAN CORPUSCULAR HEMOGLOBIN 32 pg (25-35); MEAN CORPUSCULAR HGB CONC 34 g/dL (31-37); MEAN CORPUSCULAR VOLUME 93 fL (79-100); MONO # 0.6 x10^3/uL (0.0-1.1); MONO % 9 % (0-9); NEUT # 3.3 x10^3uL (1.8-7.7); NEUT % 49 % (31-73); PLATELET COUNT 120 x10^3/uL (140-400); RED BLOOD COUNT 4.44 x10^6/uL (4.30-5.70); RED CELL DISTRIBUTION WIDTH 15.1 % (11.5-14.5); WHITE BLOOD COUNT 6.8 x10^3/uL (4.0-11.0)
[2020-01-31 07:36] LABS: ALBUMIN 3.1 g/dL (3.4-5.0); CALCIUM 8.5 mg/dL (8.5-10.1); CREATININE 0.9 mg/dL (0.7-1.3); GFR 83.7; POTASSIUM 3.4 mmol/L (3.5-5.1); TOTAL BILIRUBIN 0.5 mg/dL (0.2-1.0); TOTAL PROTEIN 6.3 g/dL (6.4-8.2)
[2020-01-31] MEDS: CARBIDOPA/LEVODOPA 10/100MG TABLET PO SCH ×3 (08:02→20:03)
[2020-01-31] MEDS: FUROSEMIDE 40 MG TABLET PO SCH (08:02)
[2020-01-31] MEDS: POTASSIUM CHLORIDE 20 MEQ TABLET.ER. PO SCH (08:02)
[2020-01-31] MEDS: SERTRALINE 25 MG TABLET. PO SCH (08:03)
[2020-01-31] MEDS: DIVALPROEX 125 MG CAP.SPRINK PO SCH (08:03)
[2020-01-31] MEDS: METOPROLOL TART IMMED RELEASE 25 MG TABLET PO SCH ×2 (08:03→20:04)
[2020-01-31] MEDS: APIXABAN 5 MG TABLET. PO SCH ×2 (08:04→20:03)
[2020-01-31] MEDS: MEMANTINE 10 MG TABLET. PO SCH ×2 (08:04→16:50)
[2020-01-31] MEDS: risperiDONE 0.25 MG TABLET. PO SCH ×3 (08:04→16:51)
[2020-01-31] MEDS: ASCORBIC ACID 500 MG TABLET PO SCH (08:04)
[2020-01-31] MEDS: SENNOSIDES/DOCUSATE 8.6/50MG TABLET. PO SCH (08:04)
[2020-01-31] MEDS: DOCUSATE SODIUM 100 MG CAPSULE PO SCH (08:05)
[2020-01-31] MEDS: RIVASTIGMINE 13.3MG PATCH. TD SCH (08:05)
[2020-01-31] MEDS: TIMOLOL 0.5% OPHTH SOLUTION 5ML BOTTLE. OU SCH ×2 (08:05→20:02)
--- NOTE | 2020-01-31 09:51 | PDOC ---
Exam Note: Michael Note: This note is a late entry for 01/30/2020 covers elements not covered in my initial note. Subjective: The patient was seen individually in the evening of 01/30/2020. Per Dago BRASHER, the patient at times is fully oriented but becomes extremely delusional, part of his Lewy body dementia. He followed me around the unit as I met with him. Review of Systems: Ambulation somewhat impaired. No CV, , pulmonary, eye, ENT system symptoms on review. Mental Status Exam: Oriented to himself and situation. On close questioning he was on the telephone with his right before I visited with him and he was able to remember that but not about the conversation that he had. Speech is coherent, has some latency. Abstraction is fair. Computation is impaired. Language function is intact. Attention span short. Mood and affect somewhat withdrawn. Laboratory Data: Reviewed. Impression: Major neurocognitive disorder Lewy body with delusion, depression and behavioral disturbance. Anxiety disorder unspecified. Impulse control disorder unspecified. Rest unchanged. Plan: No change from initial note as mentioned above. Assessment: Vital Signs/I&O: Vital Signs Date Time Temp Pulse Resp B/P (MAP) Pulse Ox O2 Delivery O2 Flow Rate FiO2 01/31/20 08:03 86 158/94 01/31/20 06:22 97.8 20 92 01/28/20 16:14 Room Air I & O 01/30/20 01/30/20 01/31/20 15:00 23:00 07:00 Intake Total 960 ml 840 ml Balance 960 ml 840 ml Labs: Laboratory Tests Test 01/31/20 06:28 White Blood Count 6.8 x10^3/uL (4.0-11.0) Red Blood Count 4.44 x10^6/uL (4.30-5.70) Hemoglobin 14.1 g/dL (13.0-17.5) Hematocrit 41.4 % (39.0-53.0) Mean Corpuscular Volume 93 fL (79-100) Mean Corpuscular Hemoglobin 32 pg (25-35) Mean Corpuscular Hemoglobin Concent 34 g/dL (31-37) Red Cell Distribution Width 15.1 % (11.5-14.5) H Platelet Count 120 x10^3/uL (140-400) L Neutrophils (%) (Auto) 49 % (31-73) Lymphocytes (%) (Auto) 37 % (24-48) Monocytes (%) (Auto) 9 % (0-9) Eosinophils (%) (Auto) 5 % (0-3) H Basophils (%) (Auto) 1 % (0-3) Neutrophils # (Auto) 3.3 x10^3uL (1.8-7.7) Lymphocytes # (Auto) 2.5 x10^3/uL (1.0-4.8) Monocytes # (Auto) 0.6 x10^3/uL (0.0-1.1) Eosinophils # (Auto) 0.3 x10^3/uL (0.0-0.7) Basophils # (Auto) 0.1 x10^3/uL (0.0-0.2) Sodium Level 143 mmol/L (136-145) Potassium Level 3.4 mmol/L (3.5-5.1) L Chloride Level 106 mmol/L (98-107) Carbon Dioxide Level 30 mmol/L (21-32) Anion Gap 7 (6-14) Blood Urea Nitrogen 14 mg/dL (8-26) Creatinine 0.9 mg/dL (0.7-1.3) Estimated GFR (Cockcroft-Gault) 83.7 BUN/Creatinine Ratio 16 (6-20) Glucose Level 132 mg/dL (70-99) H Calcium Level 8.5 mg/dL (8.5-10.1) Total Bilirubin 0.5 mg/dL (0.2-1.0) Aspartate Amino Transferase (AST) 16 U/L (15-37) Alanine Aminotransferase (ALT) 29 U/L (16-63) Alkaline Phosphatase 88 U/L (46-116) Total Protein 6.3 g/dL (6.4-8.2) L Albumin 3.1 g/dL (3.4-5.0) L Albumin/Globulin Ratio 1.0 (1.0-1.7) Current Medications: I have reviewed the current psychotropics carefully including drug interactions. Risk benefit ratio favors no change other than as noted in my dictated progress note. 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
[2020-01-31 15:57] VITALS: BP 120/75
--- NOTE | 2020-01-31 18:30 | NUR ---
Patient has been calm, compliant, delusional, and cooperative throughout this shift. 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 Patient is redirectable by telling him that the community education coordinator and HR have been made aware. Patient has been social with staff and peers, and actively participates in groups. Will continue to monitor.
[2020-01-31] MEDS: MELATONIN 3 MG TABLET PO SCH (20:03)
[2020-01-31] MEDS: CYCLOBENZAPRINE 10 MG TABLET. PO SCH (20:03)
[2020-01-31] MEDS: ATORVASTATIN CALCIUM 20 MG TABLET PO SCH (20:03)
[2020-01-31] MEDS: DIVALPROEX ER 500 MG TAB.ER.24H PO SCH (20:03)
[2020-01-31] MEDS: ACETAMINOPHEN 500 MG TABLET PO SCH (20:04)
[2020-01-31] MEDS: GABAPENTIN 300 MG CAPSULE. PO SCH (20:04)
--- NOTE | 2020-01-31 22:15 | PDOC ---
Exam Note: Michael Note: Please also refer to the separate dictated note~for this date of service dictated separately.~Patient seen individually. Discussed the patient with Nursing staff reviewed the chart.~Reviewed interim history and current functioning. Reviewed vital signs,~Labs/ Radiology~and current medications noted below. Continue current treatment with the changes noted in the dictated addendum note Assessment: Vital Signs/I&O: Vital Signs Date Time Temp Pulse Resp B/P (MAP) Pulse Ox O2 Delivery O2 Flow Rate FiO2 01/31/20 20:04 63 120/75 01/31/20 15:57 97.2 19 97 Room Air I & O 01/30/20 01/30/20 01/31/20 15:00 23:00 07:00 Intake Total 960 ml 840 ml Balance 960 ml 840 ml Labs: Laboratory Tests Test 01/31/20 06:28 White Blood Count 6.8 x10^3/uL (4.0-11.0) Red Blood Count 4.44 x10^6/uL (4.30-5.70) Hemoglobin 14.1 g/dL (13.0-17.5) Hematocrit 41.4 % (39.0-53.0) Mean Corpuscular Volume 93 fL (79-100) Mean Corpuscular Hemoglobin 32 pg (25-35) Mean Corpuscular Hemoglobin Concent 34 g/dL (31-37) Red Cell Distribution Width 15.1 % (11.5-14.5) H Platelet Count 120 x10^3/uL (140-400) L Neutrophils (%) (Auto) 49 % (31-73) Lymphocytes (%) (Auto) 37 % (24-48) Monocytes (%) (Auto) 9 % (0-9) Eosinophils (%) (Auto) 5 % (0-3) H Basophils (%) (Auto) 1 % (0-3) Neutrophils # (Auto) 3.3 x10^3uL (1.8-7.7) Lymphocytes # (Auto) 2.5 x10^3/uL (1.0-4.8) Monocytes # (Auto) 0.6 x10^3/uL (0.0-1.1) Eosinophils # (Auto) 0.3 x10^3/uL (0.0-0.7) Basophils # (Auto) 0.1 x10^3/uL (0.0-0.2) Sodium Level 143 mmol/L (136-145) Potassium Level 3.4 mmol/L (3.5-5.1) L Chloride Level 106 mmol/L (98-107) Carbon Dioxide Level 30 mmol/L (21-32) Anion Gap 7 (6-14) Blood Urea Nitrogen 14 mg/dL (8-26) Creatinine 0.9 mg/dL (0.7-1.3) Estimated GFR (Cockcroft-Gault) 83.7 BUN/Creatinine Ratio 16 (6-20) Glucose Level 132 mg/dL (70-99) H Calcium Level 8.5 mg/dL (8.5-10.1) Total Bilirubin 0.5 mg/dL (0.2-1.0) Aspartate Amino Transferase (AST) 16 U/L (15-37) Alanine Aminotransferase (ALT) 29 U/L (16-63) Alkaline Phosphatase 88 U/L (46-116) Total Protein 6.3 g/dL (6.4-8.2) L Albumin 3.1 g/dL (3.4-5.0) L Albumin/Globulin Ratio 1.0 (1.0-1.7) Current Medications: I have reviewed the current psychotropics carefully including drug interactions. Risk benefit ratio favors no change other than as noted in my dictated progress note. Diagnosis: Problems: (1) Major neurocognitive disorder (2) Dementia, vascular, with delusions (3) Dementia in Alzheimer's disease with delusions (4) Anxiety disorder (5) Impulse control disorder (6) Lewy body dementia with behavioral disturbance CAMERON ROSAS MD Jan 31, 2020 22:15
--- NOTE | 2020-01-31 22:57 | NUR ---
Nursing Note Pt approaches me with a serious look on his face and states "I need to speak with you confidentially please, no hurry but tonight preferably." I said ok, whats up. He state "Oh not here, its sensitive confidential information." He followed me down the hallway later to tell me the following. "Hi, we had 2 RT's in that private [place] over there performing oral sex on each other. Now, I know they are two consenting adults, but this shouldn't be occurring in the [place] on shift. They have been around here too long, they have not touched a pt or done patient care in over 20 years. They have been padding their checks and fooling the system long enough. It's time to let them go. Don't you agree?" I validated him that the details were reported to the appropriate administrators and that we wouldn't be privy to the disciplinary actions since it was such a sensitive topic. He seemed to be satisfied with this resolution to the problem and went to get ready for bed. His called later to inquire about discharge plans because the patient had spoken to her earlier in the day and has elaborate plans upon discharge for shopping and a hair cut. was unaware of discharge . She states that his delusions are consistent but as long as his mood is improved etc she was happy with his progress and thanked us for doing a good job with him. Pt resting in bed now.
[2020-02-01] MEDS ORDERED: SERT50TA PO (03:16)
[2020-02-01] MEDS ORDERED: OLAN5TAB5 PO (03:19)
[2020-02-01] MEDS ORDERED: RISP0.5T24 PO ×2 (03:21→03:22)
[2020-02-01] MEDS ORDERED: MEMA10TA PO (03:24)
[2020-02-01 05:30] VITALS: BP 121/64
[2020-02-01] MEDS: LEVOTHYROXINE 25 MCG TABLET. PO SCH (06:08)
[2020-02-01] MEDS: FUROSEMIDE 40 MG TABLET PO SCH (08:22)
[2020-02-01] MEDS: CARBIDOPA/LEVODOPA 10/100MG TABLET PO SCH ×3 (08:23→20:33)
[2020-02-01] MEDS: SERTRALINE 25 MG TABLET. PO SCH (08:23)
[2020-02-01] MEDS: APIXABAN 5 MG TABLET. PO SCH ×2 (08:23→20:34)
[2020-02-01] MEDS: risperiDONE 0.25 MG TABLET. PO SCH ×3 (08:23→16:56)
[2020-02-01] MEDS: MEMANTINE 10 MG TABLET. PO SCH ×2 (08:24→16:56)
[2020-02-01] MEDS: METOPROLOL TART IMMED RELEASE 25 MG TABLET PO SCH ×2 (08:24→20:34)
[2020-02-01] MEDS: POTASSIUM CHLORIDE 20 MEQ TABLET.ER. PO SCH (08:24)
[2020-02-01] MEDS: DIVALPROEX 125 MG CAP.SPRINK PO SCH (08:25)
[2020-02-01] MEDS: DOCUSATE SODIUM 100 MG CAPSULE PO SCH (08:25)
[2020-02-01] MEDS: ASCORBIC ACID 500 MG TABLET PO SCH (08:25)
[2020-02-01] MEDS: TIMOLOL 0.5% OPHTH SOLUTION 5ML BOTTLE. OU SCH ×2 (08:25→20:33)
[2020-02-01] MEDS: RIVASTIGMINE 13.3MG PATCH. TD SCH (08:25)
[2020-02-01] MEDS: SENNOSIDES/DOCUSATE 8.6/50MG TABLET. PO SCH (08:25)
--- NOTE | 2020-02-01 10:13 | NUR ---
ALONZO attempted to contact Serina at [facility] and was told she was not in just yet. ALONZO was able to leave a message asking Serina to call ALONZO back to discuss discharge for pt tomorrow.
--- NOTE | 2020-02-01 13:10 | NUR ---
ALONZO attempted to contact ANSHU Smalls at [facility] and left a message asking for her to contact ALONZO. ALONZO was told that she was in a meeting and would be able to contact ALONZO back shortly.
--- NOTE | 2020-02-01 13:12 | NUR ---
ALONZO contacted Margy, pt , to let her know that she checked with [facility] and was told that discharge was okay by Noelle, the entry level sales associate. However, the nurse, Serina, called wanting to ask ALONZO a few questions. ALONZO has attempted 2x today to contact Serina with no luck. ALONZO will try back again this afternoon and call Margy with the update on what is going on.
[2020-02-01 15:59] VITALS: BP 145/84
--- NOTE | 2020-02-01 17:26 | NUR ---
[facility] Social Work Discharge Planning Form Patient Name ALYSSA LOREDO Admit Date: 12/28/2019 DISCHARGE PLAN Discharge Destination: Return to [facility] Assessment: N/A Level II Assessment: N/A Transportation: [place] to pick pt up; Transport time will be determined in the AM. Special Instructions/Notes: Please fax all discharge orders and discharge medication list to the fax listed below for [place] DISCHARGE TO FACILITY Facility: [facility] Address: [address] [place] [id number] Contact Name: Myah Jarvis RN Case Manager: Contact Name: Yenifer Harris, Personal Service Representative: PCP: Dr. Anuel Zepeda
--- NOTE | 2020-02-01 18:10 | NUR ---
Patient has been calm, compliant, delusional, and cooperative throughout this shift. Patient has been social with staff and peers, and actively participates in groups. Will continue to monitor.
[2020-02-01] MEDS: GABAPENTIN 300 MG CAPSULE. PO SCH (20:33)
[2020-02-01] MEDS: ACETAMINOPHEN 500 MG TABLET PO SCH (20:33)
[2020-02-01] MEDS: MELATONIN 3 MG TABLET PO SCH (20:33)
[2020-02-01] MEDS: CYCLOBENZAPRINE 10 MG TABLET. PO SCH (20:34)
[2020-02-01] MEDS: DIVALPROEX ER 500 MG TAB.ER.24H PO SCH (20:34)
[2020-02-01] MEDS: ATORVASTATIN CALCIUM 20 MG TABLET PO SCH (20:34)
--- NOTE | 2020-02-01 22:13 | PDOC ---
Exam Note: Michael Note: Please also refer to the separate dictated note~for this date of service dictated separately.~Patient seen individually. Discussed the patient with Nursing staff reviewed the chart.~Reviewed interim history and current functioning. Reviewed vital signs,~Labs/ Radiology~and current medications noted below. Continue current treatment with the changes noted in the dictated addendum note Assessment: Vital Signs/I&O: Vital Signs Date Time Temp Pulse Resp B/P (MAP) Pulse Ox O2 Delivery O2 Flow Rate FiO2 02/01/20 20:34 62 145/84 02/01/20 15:59 98.9 16 96 01/31/20 15:57 Room Air I & O 01/31/20 01/31/20 02/01/20 14:59 22:59 06:59 Intake Total 720 ml 600 ml Balance 720 ml 600 ml Current Medications: I have reviewed the current psychotropics carefully including drug interactions. Risk benefit ratio favors no change other than as noted in my dictated progress note. Diagnosis: Problems: (1) Major neurocognitive disorder (2) Parkinson's disease (3) Dementia, vascular, with delusions (4) Dementia in Alzheimer's disease with delusions (5) Anxiety disorder (6) Impulse control disorder (7) Lewy body dementia with behavioral disturbance CAMERON ROSAS MD Feb 01, 2020 22:13
[2020-02-02] MEDS ORDERED: METH28OI2 TP (01:15)
[2020-02-02] MEDS ORDERED: MAGN400O7 PO (01:16)
[2020-02-02] MEDS ORDERED: MAG30ORA2 PO (01:16)
[2020-02-02] MEDS ORDERED: ACET325T9 PO (01:20)
--- NOTE | 2020-02-02 02:39 | NUR ---
Nursing Note The patient was calm and cooperative this shift. The patient took his medication whole and was pleasant during interactions with this nurse. The patient stated that he would like to stay here longer (patient seems to think he is an employee here) but after talking with this nurse was willing to try out the facility he is going to. The patient is currently sleeping in his room.
[2020-02-02 06:42] VITALS: BP 133/66
[2020-02-02 08:12] LABS: BASO # 0.1 x10^3/uL (0.0-0.2); BASO % 1 % (0-3); EOS # 0.3 x10^3/uL (0.0-0.7); EOS % 5 % (0-3); HEMATOCRIT 42.7 % (39.0-53.0); HEMOGLOBIN 14.5 g/dL (13.0-17.5); LYMPH # 2.4 x10^3/uL (1.0-4.8); LYMPH % 40 % (24-48); MEAN CORPUSCULAR HEMOGLOBIN 32 pg (25-35); MEAN CORPUSCULAR HGB CONC 34 g/dL (31-37); MEAN CORPUSCULAR VOLUME 93 fL (79-100); MONO # 0.6 x10^3/uL (0.0-1.1); MONO % 10 % (0-9); NEUT # 2.6 x10^3uL (1.8-7.7); NEUT % 44 % (31-73); PLATELET COUNT 118 x10^3/uL (140-400); RED BLOOD COUNT 4.58 x10^6/uL (4.30-5.70); RED CELL DISTRIBUTION WIDTH 14.6 % (11.5-14.5)
[2020-02-02] MEDS: MEMANTINE 10 MG TABLET. PO SCH (08:12)
[2020-02-02] MEDS: TIMOLOL 0.5% OPHTH SOLUTION 5ML BOTTLE. OU SCH (08:12)
[2020-02-02 08:13] VITALS: BP 133/66
[2020-02-02] MEDS: SENNOSIDES/DOCUSATE 8.6/50MG TABLET. PO SCH (08:13)
[2020-02-02] MEDS: DOCUSATE SODIUM 100 MG CAPSULE PO SCH (08:13)
[2020-02-02] MEDS: POTASSIUM CHLORIDE 20 MEQ TABLET.ER. PO SCH (08:13)
[2020-02-02] MEDS: METOPROLOL TART IMMED RELEASE 25 MG TABLET PO SCH (08:13)
[2020-02-02] MEDS: ASCORBIC ACID 500 MG TABLET PO SCH (08:13)
[2020-02-02] MEDS: CARBIDOPA/LEVODOPA 10/100MG TABLET PO SCH ×2 (08:13→13:09)
[2020-02-02 08:14] LABS: ALBUMIN 3.1 g/dL (3.4-5.0); ALBUMIN/GLOBULIN RATIO 0.9 (1.0-1.7); CALCIUM 8.6 mg/dL (8.5-10.1); CREATININE 0.9 mg/dL (0.7-1.3); GFR 83.7; POTASSIUM 3.8 mmol/L (3.5-5.1); TOTAL BILIRUBIN 0.6 mg/dL (0.2-1.0); TOTAL PROTEIN 6.5 g/dL (6.4-8.2)
[2020-02-02] MEDS: APIXABAN 5 MG TABLET. PO SCH (08:14)
[2020-02-02] MEDS: DIVALPROEX 125 MG CAP.SPRINK PO SCH (08:14)
[2020-02-02] MEDS: risperiDONE 0.25 MG TABLET. PO SCH ×2 (08:14→13:09)
[2020-02-02] MEDS: FUROSEMIDE 40 MG TABLET PO SCH (08:14)
[2020-02-02] MEDS: LEVOTHYROXINE 25 MCG TABLET. PO SCH (08:14)
[2020-02-02] MEDS: SERTRALINE 25 MG TABLET. PO SCH (08:14)
[2020-02-02] MEDS: RIVASTIGMINE 13.3MG PATCH. TD SCH (08:15)
--- NOTE | 2020-02-02 09:07 | PDOC ---
Exam Note: Michael Note: This note is a late entry for 01/31/2020 covers elements not covered in my initial note. Subjective: The patient was seen individually in the evening of 01/31/2020. Per Dago BRASHER, he slept 7-1/4 hours previous night. 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 He was persistent and repeatedly asking me if I had any new hires. Nevertheless, he is redirectable. Per Dago RN, the patient has had some a.m. sedation. Nursing staff wonder whether it could be due to the trazodone p.r.n. at night and we will stop the trazodone to see how he does. Review of Systems: Ambulation somewhat impaired. No CV, , pulmonary, eye, ENT system symptoms on review. Mental Status Exam: Oriented to himself and situation. Speech is coherent, has some latency. Abstraction is fair. Computation is impaired. Language function is intact. Attention span short. Mood and affect somewhat delusional, paranoid. Laboratory Data: Reviewed. Impression: Major neurocognitive disorder Lewy body with delusion, depression and behavioral disturbance. Anxiety disorder unspecified. Impulse control disorder unspecified. Rest unchanged. Plan: No change from initial note as mentioned above. Assessment: Vital Signs/I&O: Vital Signs Date Time Temp Pulse Resp B/P (MAP) Pulse Ox O2 Delivery O2 Flow Rate FiO2 02/02/20 08:13 61 133/66 02/02/20 06:42 98.3 16 98 01/31/20 15:57 Room Air I & O 02/01/20 02/01/20 02/02/20 15:00 23:00 07:00 Intake Total 840 ml 240 ml 120 ml Balance 840 ml 240 ml 120 ml Labs: Laboratory Tests Test 02/02/20 07:44 White Blood Count 6.0 x10^3/uL (4.0-11.0) Red Blood Count 4.58 x10^6/uL (4.30-5.70) Hemoglobin 14.5 g/dL (13.0-17.5) Hematocrit 42.7 % (39.0-53.0) Mean Corpuscular Volume 93 fL (79-100) Mean Corpuscular Hemoglobin 32 pg (25-35) Mean Corpuscular Hemoglobin Concent 34 g/dL (31-37) Red Cell Distribution Width 14.6 % (11.5-14.5) H Platelet Count 118 x10^3/uL (140-400) L Neutrophils (%) (Auto) 44 % (31-73) Lymphocytes (%) (Auto) 40 % (24-48) Monocytes (%) (Auto) 10 % (0-9) H Eosinophils (%) (Auto) 5 % (0-3) H Basophils (%) (Auto) 1 % (0-3) Neutrophils # (Auto) 2.6 x10^3uL (1.8-7.7) Lymphocytes # (Auto) 2.4 x10^3/uL (1.0-4.8) Monocytes # (Auto) 0.6 x10^3/uL (0.0-1.1) Eosinophils # (Auto) 0.3 x10^3/uL (0.0-0.7) Basophils # (Auto) 0.1 x10^3/uL (0.0-0.2) Sodium Level 143 mmol/L (136-145) Potassium Level 3.8 mmol/L (3.5-5.1) Chloride Level 107 mmol/L (98-107) Carbon Dioxide Level 34 mmol/L (21-32) H Anion Gap 2 (6-14) L Blood Urea Nitrogen 15 mg/dL (8-26) Creatinine 0.9 mg/dL (0.7-1.3) Estimated GFR (Cockcroft-Gault) 83.7 BUN/Creatinine Ratio 17 (6-20) Glucose Level 105 mg/dL (70-99) H Calcium Level 8.6 mg/dL (8.5-10.1) Total Bilirubin 0.6 mg/dL (0.2-1.0) Aspartate Amino Transferase (AST) 17 U/L (15-37) Alanine Aminotransferase (ALT) 27 U/L (16-63) Alkaline Phosphatase 84 U/L (46-116) Total Protein 6.5 g/dL (6.4-8.2) Albumin 3.1 g/dL (3.4-5.0) L Albumin/Globulin Ratio 0.9 (1.0-1.7) L Current Medications: I have reviewed the current psychotropics carefully including drug interactions. Risk benefit ratio favors no change other than as noted in my dictated progress note. Diagnosis: Problems: (1) Major neurocognitive disorder (2) Parkinson's disease (3) Dementia, vascular, with delusions (4) Dementia in Alzheimer's disease with delusions (5) Anxiety disorder (6) Impulse control disorder (7) Lewy body dementia with behavioral disturbance CAMERON ROSAS MD Feb 02, 2020 09:07
--- NOTE | 2020-02-02 10:14 | NUR ---
Nursing note: Pt was in dining room for morning meds and assessment. He was pleasant, med compliant, and cooperative. Pt stated he is depressed because we're "shipping him out", but he also mentioned he's "excited to go back to where I used to work". He said he really likes it here but he's ready to change it up. Pt is currently in the day room stretching for activity therapy. Will continue to monitor.
--- NOTE | 2020-02-02 15:09 | NUR ---
Transition Record was faxed to follow-up provider with the following elements: Reason for admission, procedures, tests, principal diagnosis, pending studies, patient instructions, 02/03 contact information for unit, phone number to obtain pending test results, plan for follow-up care, physician follow-up, advanced directive information, and medication list with dose, duration and instructions. This information was included in the following documents: History and physical, lab results, study results, progress notes, social work planning form, DC instruction form, patient visit summary, and medication reconciliation form. Date & time record faxed: 02/02/2020 @ 0143 Record faxed to: Rosalba Lopez @ [phone] Record discussed with/ report given to: Myah @ [phone]
--- NOTE | 2020-02-02 22:26 | PDOC ---
Exam Note: Michael Note: Please also refer to the separate dictated note~for this date of service dictated separately.~Patient seen individually. Discussed the patient with Nursing staff reviewed the chart.~Reviewed interim history and current functioning. Reviewed vital signs,~Labs/ Radiology~and current medications noted below. Continue current treatment with the changes noted in the dictated addendum note Assessment: Vital Signs/I&O: Vital Signs Date Time Temp Pulse Resp B/P (MAP) Pulse Ox O2 Delivery O2 Flow Rate FiO2 02/02/20 08:13 61 133/66 02/02/20 06:42 98.3 16 98 01/31/20 15:57 Room Air I & O 02/01/20 02/01/20 02/02/20 15:00 23:00 07:00 Intake Total 840 ml 240 ml 120 ml Balance 840 ml 240 ml 120 ml Labs: Laboratory Tests Test 02/02/20 07:44 White Blood Count 6.0 x10^3/uL (4.0-11.0) Red Blood Count 4.58 x10^6/uL (4.30-5.70) Hemoglobin 14.5 g/dL (13.0-17.5) Hematocrit 42.7 % (39.0-53.0) Mean Corpuscular Volume 93 fL (79-100) Mean Corpuscular Hemoglobin 32 pg (25-35) Mean Corpuscular Hemoglobin Concent 34 g/dL (31-37) Red Cell Distribution Width 14.6 % (11.5-14.5) H Platelet Count 118 x10^3/uL (140-400) L Neutrophils (%) (Auto) 44 % (31-73) Lymphocytes (%) (Auto) 40 % (24-48) Monocytes (%) (Auto) 10 % (0-9) H Eosinophils (%) (Auto) 5 % (0-3) H Basophils (%) (Auto) 1 % (0-3) Neutrophils # (Auto) 2.6 x10^3uL (1.8-7.7) Lymphocytes # (Auto) 2.4 x10^3/uL (1.0-4.8) Monocytes # (Auto) 0.6 x10^3/uL (0.0-1.1) Eosinophils # (Auto) 0.3 x10^3/uL (0.0-0.7) Basophils # (Auto) 0.1 x10^3/uL (0.0-0.2) Sodium Level 143 mmol/L (136-145) Potassium Level 3.8 mmol/L (3.5-5.1) Chloride Level 107 mmol/L (98-107) Carbon Dioxide Level 34 mmol/L (21-32) H Anion Gap 2 (6-14) L Blood Urea Nitrogen 15 mg/dL (8-26) Creatinine 0.9 mg/dL (0.7-1.3) Estimated GFR (Cockcroft-Gault) 83.7 BUN/Creatinine Ratio 17 (6-20) Glucose Level 105 mg/dL (70-99) H Calcium Level 8.6 mg/dL (8.5-10.1) Total Bilirubin 0.6 mg/dL (0.2-1.0) Aspartate Amino Transferase (AST) 17 U/L (15-37) Alanine Aminotransferase (ALT) 27 U/L (16-63) Alkaline Phosphatase 84 U/L (46-116) Total Protein 6.5 g/dL (6.4-8.2) Albumin 3.1 g/dL (3.4-5.0) L Albumin/Globulin Ratio 0.9 (1.0-1.7) L Current Medications: I have reviewed the current psychotropics carefully including drug interactions. Risk benefit ratio favors no change other than as noted in my dictated progress note. Diagnosis: Problems: (1) Major neurocognitive disorder (2) Parkinson's disease (3) Dementia, vascular, with delusions (4) Dementia in Alzheimer's disease with delusions (5) Anxiety disorder (6) Impulse control disorder (7) Lewy body dementia with behavioral disturbance CAMERON ROSAS MD Feb 02, 2020 22:26
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
--- NOTE | 2020-02-04 07:09 | PDOC ---
Exam Note: Michael Note: This note is a late entry for 02/01/2020 covers elements not covered in my initial note. Subjective: The patient was seen individually in the evening of 02/01/2020. Per Dago BRASHER, he slept 6-1/2 hours previous night. Previous evening he was obsessive, sexually preoccupied, talking about two people having oral sex on the unit. He remains quite delusional. He told Joi BRASHER and Dago RN about this the previous evening but none of this has been mentioned during the day on 02/01/2020. Despite the above, overall his behaviors are better and some of what the delusion is the reflection of his Lewy body dementia. 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 Review of Systems: No CV, , pulmonary, eye, ENT system symptoms on review. Mental Status Exam: Oriented to himself and situation. Speech is coherent, has some latency. Abstraction is fair. Computation is impaired. Language function is intact. Attention span short. Mood and affect somewhat delusional, paranoid. Laboratory Data: Reviewed. Impression: Major neurocognitive disorder Lewy body with delusion, depression and behavioral disturbance. Anxiety disorder unspecified. Impulse control disorder unspecified. Rest unchanged. Plan: We will possibly transition the patient to senior living on 02/02/2020. Assessment: Vital Signs/I&O: Vital Signs Date Time Temp Pulse Resp B/P (MAP) Pulse Ox O2 Delivery O2 Flow Rate FiO2 02/02/20 08:13 61 133/66 02/02/20 06:42 98.3 16 98 01/31/20 15:57 Room Air Current Medications: I have reviewed the current psychotropics carefully including drug interactions. Risk benefit ratio favors no change other than as noted in my dictated progress note. Diagnosis: Problems: (1) Major neurocognitive disorder (2) Parkinson's disease (3) Dementia, vascular, with delusions (4) Dementia in Alzheimer's disease with delusions (5) Anxiety disorder (6) Impulse control disorder (7) Lewy body dementia with behavioral disturbance CAMERON ROSAS MD Feb 04, 2020 07:09
== END 2020-02-02 14:50 | DRG 57 ==
LOC: GEROPSY 20:08 → EDBD 20:08 → GEROPSY 01-25 15:44
PROVIDERS: ADMIT Psychiatry & Neurology Psychiatry; ATTEND Psychiatry & Neurology Psychiatry
DX: G30.9 Alzheimer's disease, unspecified (principal); F01.51 Vascular dementia, unspecified severity, with behavioral disturbance; G20 Parkinson's disease; E78.5 Hyperlipidemia, unspecified; F32.9 Major depressive disorder, single episode, unspecified; F41.9 Anxiety disorder, unspecified; F63.9 Impulse disorder, unspecified; G25.81 Restless legs syndrome; G47.00 Insomnia, unspecified; G47.30 Sleep apnea, unspecified; H40.9 Unspecified glaucoma; I10 Essential (primary) hypertension; I48.91 Unspecified atrial fibrillation; R13.10 Dysphagia, unspecified; Z79.899 Other long term (current) drug therapy; Z91.19 Patient's noncompliance with other medical treatment and regimen; Z95.0 Presence of cardiac pacemaker; Z03.818 Encounter for observation for suspected exposure to other biological agents ruled out
CPT/HCPCS: 36415; 80053; 80061; 80164; 81001; 82306; 82607; 83036; 83540; 83550; 83735; 84436; 84443; 84480; 85025; 85027; 86592; U0003-CS

== ENCOUNTER 2020-09-01 05:39 | Inpatient (IN) | payer MEDICARE, OTHER ==
[~2020-09-01] VITALS: Ht 177.8 cm; Wt 98.2 kg
[~2020-09-01 05:39] MED LIST: ACET325T9 PO; APIX5TAB3 PO; ASCO500C PO; ATOR40TA59 PO; CARB1TAB33 PO; CYCL5TAB PO; DICL100G18 TP; DIVA250T PO; DIVA500T17 PO; DOCU-109 PO; ESZO2TAB26 PO; FURO-68 PO; GABA-586 PO; LEVO25TA4 PO; MAG30ORA2 PO; MAGN400O7 PO; MELA5TAB20 PO; MEMA10TA PO; MENT118G TOP; METH28OI2 TP; METO-239 PO; OLAN5TAB99 PO; POTA20TA4 PO; QUET25TA5 PO; RISP0.5T24 PO; RIVA1PAT22 TP; SENN1TAB62 PO; SERT50TA PO; TIMO5SOL10 EACHEYE
[2020-09-01] MEDS ORDERED: LANO250L TP (12:50)
[2020-09-01] MEDS ORDERED: CHLO118L3 TP (12:50)
[2020-09-01] MEDS ORDERED: RIVA1PAT5 TD (12:50)
[2020-09-01] MEDS ORDERED: OXYB5TAB33 PO (12:50)
[2020-09-01] MEDS ORDERED: POLY17PO5 PO ×2 (12:50)
[2020-09-01] MEDS ORDERED: IBUP400T18 PO (12:50)
[2020-09-01] MEDS ORDERED: BUME1TAB3 PO (12:50)
[2020-09-01] MEDS ORDERED: TAMS0.4C97 PO (12:50)
[2020-09-01] MEDS ORDERED: CAPS1ADH8 TP (12:50)
[2020-09-01] MEDS ORDERED: META-21 PO (12:54)
[2020-09-01] MEDS ORDERED: POLYETHYLENE GLYCOL 3350 17 GM PACKET. PO PRN (15:30)
[2020-09-01] MEDS ORDERED: DICLOFENAC SODIUM 1% TOPICAL GEL 100GM TUBE. TP PRN (15:30)
[2020-09-01] MEDS ORDERED: IBUPROFEN 400 MG TABLET. PO PRN (15:30)
[2020-09-01] MEDS ORDERED: NON FORMULARY ITEM (Menthol (Biofreeze) 1 APP) TOP PRN (15:30)
[2020-09-01 15:43] VITALS: BP 158/75
[2020-09-01] MEDS ORDERED: METHYL SALICYLATE/MENTHOL TOPICAL OINTMENT 57GM TUBE. TP PRN (16:15)
[2020-09-01] MEDS ORDERED: MAG HYDROX/AL HYDROX/SIMETH 30 ML ORAL.SUSP PO PRN (16:15)
[2020-09-01] MEDS ORDERED: MINERAL OIL/PETROLATUM TOPICAL CREAM 113GM JAR. TP PRN (16:45)
[2020-09-01] MEDS: CARBIDOPA/LEVODOPA 10/100MG TABLET PO SCH ×2 (17:31→20:32)
[2020-09-01] MEDS: MEMANTINE 10 MG TABLET. PO SCH (17:31)
[2020-09-01 18:53] LABS: BILIRUBIN,URINE NEG (NEG); CLARITY,URINE CLEAR; COLOR,URINE YELLOW; GLUCOSE,URINE NEG (NEG); NITRITE,URINE NEG (NEG); RBC,URINE 0 /HPF (0-2); UROBILINOGEN,URINE 0.2 mg/dL (0.2 mg/dL)
[2020-09-01 18:54] LABS: BACTERIA,URINE 0 /HPF (0-FEW); WBC,URINE 0 /HPF (0-4)
[2020-09-01] MEDS: MELATONIN 3 MG TABLET PO SCH (20:29)
[2020-09-01] MEDS: TIMOLOL 0.5% OPHTH SOLUTION 5ML BOTTLE. OU SCH (20:29)
[2020-09-01] MEDS: CHLORHEXIDINE 0.12% 15 ML MOUTHWASH. SWSP SCH (20:29)
[2020-09-01] MEDS: METOPROLOL SUCC 24HR ER 25 MG TAB.ER.24H. PO SCH (20:30)
[2020-09-01] MEDS: risperiDONE 0.5 MG TABLET. PO SCH (20:30)
[2020-09-01] MEDS: POTASSIUM CHLORIDE 20 MEQ TABLET.ER. PO SCH (20:30)
[2020-09-01] MEDS: APIXABAN 5 MG TABLET. PO SCH (20:31)
[2020-09-01] MEDS: DIVALPROEX ER 500 MG TAB.ER.24H PO SCH (20:31)
[2020-09-01] MEDS: ATORVASTATIN CALCIUM 20 MG TABLET PO SCH (20:31)
[2020-09-01] MEDS: ACETAMINOPHEN 500 MG TABLET PO SCH (20:31)
[2020-09-01] MEDS: OXYBUTYNIN CHLORIDE 5 MG TABLET PO SCH (20:31)
[2020-09-01] MEDS: GABAPENTIN 300 MG CAPSULE. PO SCH (20:32)
[2020-09-01 20:35] LABS: BASO # 0.1 x10^3/uL (0.0-0.2); BASO % 1 % (0-3); EOS # 0.2 x10^3/uL (0.0-0.7); EOS % 3 % (0-3); HEMATOCRIT 39.6 % (39.0-53.0); HEMOGLOBIN 13.6 g/dL (13.0-17.5); LYMPH # 2.6 x10^3/uL (1.0-4.8); LYMPH % 34 % (24-48); MEAN CORPUSCULAR HEMOGLOBIN 32 pg (25-35); MEAN CORPUSCULAR HGB CONC 34 g/dL (31-37); MEAN CORPUSCULAR VOLUME 93 fL (79-100); MONO # 0.8 x10^3/uL (0.0-1.1); MONO % 11 % (0-9); NEUT # 3.8 x10^3uL (1.8-7.7); NEUT % 51 % (31-73); PLATELET COUNT 156 x10^3/uL (140-400); RED BLOOD COUNT 4.28 x10^6/uL (4.30-5.70); RED CELL DISTRIBUTION WIDTH 14.7 % (11.5-14.5); WHITE BLOOD COUNT 7.4 x10^3/uL (4.0-11.0)
[2020-09-01 20:55] LABS: VAL ACID 48 mcg/mL (50-100)
[2020-09-01] MEDS ORDERED: MENTHOL TP SCH (21:00)
[2020-09-01] MEDS ORDERED: CAPSAICIN TP SCH (21:00)
--- NOTE | 2020-09-01 21:03 | PDOC ---
Exam Note: Michael Note: Please also refer to the separate dictated note~for this date of service dictated separately.~Patient seen individually. Discussed the patient with Nursing staff reviewed the chart.~Reviewed interim history and current functioning. Reviewed vital signs,~Labs/ Radiology~and current medications noted below. Continue current treatment with the changes noted in the dictated addendum note Assessment: Vital Signs/I&O: Vital Signs Date Time Temp Pulse Resp B/P (MAP) Pulse Ox O2 Delivery O2 Flow Rate FiO2 09/01/20 20:30 68 158/75 09/01/20 15:43 97.7 20 95 Labs: Laboratory Tests Test 09/01/20 18:12 09/01/20 20:05 Urine Collection Type Unknown Urine Color Yellow Urine Clarity Clear Urine pH 7.0 Urine Specific [place] 1.015 Urine Protein Neg (NEG-TRACE) Urine Glucose (UA) Neg mg/dL (NEG) Urine Ketones (Stick) Neg mg/dL (NEG) Urine Blood Neg (NEG) Urine Nitrite Neg (NEG) Urine Bilirubin Neg (NEG) Urine Urobilinogen Dipstick 0.2 mg/dL (0.2 mg/dL) Urine Leukocyte Esterase Neg (NEG) Urine RBC 0 /HPF (0-2) Urine WBC 0 /HPF (0-4) Urine Squamous Epithelial Cells None /LPF Urine Bacteria 0 /HPF (0-FEW) White Blood Count 7.4 x10^3/uL (4.0-11.0) Red Blood Count 4.28 x10^6/uL (4.30-5.70) L Hemoglobin 13.6 g/dL (13.0-17.5) Hematocrit 39.6 % (39.0-53.0) Mean Corpuscular Volume 93 fL (79-100) Mean Corpuscular Hemoglobin 32 pg (25-35) Mean Corpuscular Hemoglobin Concent 34 g/dL (31-37) Red Cell Distribution Width 14.7 % (11.5-14.5) H Platelet Count 156 x10^3/uL (140-400) Neutrophils (%) (Auto) 51 % (31-73) Lymphocytes (%) (Auto) 34 % (24-48) Monocytes (%) (Auto) 11 % (0-9) H Eosinophils (%) (Auto) 3 % (0-3) Basophils (%) (Auto) 1 % (0-3) Neutrophils # (Auto) 3.8 x10^3uL (1.8-7.7) Lymphocytes # (Auto) 2.6 x10^3/uL (1.0-4.8) Monocytes # (Auto) 0.8 x10^3/uL (0.0-1.1) Eosinophils # (Auto) 0.2 x10^3/uL (0.0-0.7) Basophils # (Auto) 0.1 x10^3/uL (0.0-0.2) Valproic Acid Level 48 mcg/mL (50-100) L Valproic Acid Last Dose Date 08/31/20 Valproic Acid Last Dose Time 2100 Current Medications: Meds: Current Medications Medications (Trade) Dose Ordered Sig/Gloria Route PRN Reason Start Time Stop Time Status Last Admin Dose Admin Acetaminophen (Tylenol) 500 mg HS PO 09/01/20 21:00 09/01/20 20:31 Apixaban (Eliquis) 5 mg BID PO 09/01/20 21:00 09/01/20 20:31 Carbidopa/Levodopa (Sinemet 10/100) 0.5 tab [id number] PO 09/01/20 17:00 09/01/20 20:32 Divalproex Sodium (Depakote Er) 500 mg QHS PO 09/01/20 21:00 09/01/20 20:31 Gabapentin (Neurontin) 300 mg HS PO 09/01/20 21:00 09/01/20 20:32 Memantine (Namenda) 10 mg [id number] PO 09/01/20 16:30 09/01/20 17:31 Metoprolol Succinate (Toprol Xl) 12.5 mg BID PO 09/01/20 21:00 09/01/20 20:30 Potassium Chloride (Klor-Con) 20 meq BID PO 09/01/20 21:00 09/01/20 20:30 Risperidone (RisperDAL) 0.5 mg TID PO 09/01/20 21:00 09/01/20 20:30 Atorvastatin Calcium (Lipitor) 40 mg QHS PO 09/01/20 21:00 09/01/20 20:31 Chlorhexidine Gluconate (Peridex) 15 ml BID [facility] 09/01/20 21:00 09/01/20 20:29 Melatonin (Melatonin) 3 mg HS PO 09/01/20 21:00 09/01/20 20:29 Oxybutynin Chloride (Ditropan) 5 mg BID PO 09/01/20 21:00 09/01/20 20:31 Timolol Maleate (Timoptic 0.5% Ophth) 1 drop BID OU 09/01/20 21:00 09/01/20 20:29 I have reviewed the current psychotropics carefully including drug interactions. Risk benefit ratio favors no change other than as noted in my dictated progress note. Diagnosis: Problems: (1) Major neurocognitive disorder (2) Dementia, vascular, with delusions (3) Dementia in Alzheimer's disease with delusions (4) Anxiety disorder (5) Impulse control disorder (6) Lewy body dementia with behavioral disturbance CAMERON ROSAS MD Sep 01, 2020 21:03
[2020-09-01 21:41] LABS: ALBUMIN 3.3 g/dL (3.4-5.0); ALBUMIN/GLOBULIN RATIO 0.9 (1.0-1.7); CALCIUM 8.8 mg/dL (8.5-10.1); CREATININE 0.9 mg/dL (0.7-1.3); GFR 83.4; MAGNESIUM 2.3 mg/dL (1.8-2.4); POTASSIUM 3.5 mmol/L (3.5-5.1); TOTAL BILIRUBIN 0.4 mg/dL (0.2-1.0); TOTAL PROTEIN 6.9 g/dL (6.4-8.2)
--- NOTE | 2020-09-01 21:57 | HP ---
ADMIT DATE: 09/01/2020 This note covers elements not covered in my initial note, 09/01/2020. IDENTIFYING DATA: The patient is a 70-year-old male who is referred back to us from his nursing facility, [facility], referred by his primary care physician/psychiatrist on account of increased confusion, calling 911 about missing kids. He has been actively hallucinating, labile in his mood, aggressive behaviors, pumping fists at peers. The patient's behaviors are deemed dangerous, unmanageable at the facility. He has failed outpatient psychiatric interventions and referred for inpatient psychiatric stabilization for his Lewy body dementia with delusions, behavioral disturbance. The patient was seen individually on telehealth rounds. Previously discussed with Karina Lucas, patient day coordinator earlier with nursing staff, reviewed the chart and past psychiatric records. CHIEF COMPLAINT: "I came today. Yes, I was getting upset. Oh, the year is 2020. The month is towards the end of the month." HISTORY OF PRESENT ILLNESS: This is one of many psychiatric hospitalizations for the patient. He has been treated for diagnosis of Lewy body dementia within the context of his Parkinson's disease. He has been residing at the above facility for some time, but recently getting more psychotic, agitated, paranoid, delusional, aggressive, disruptive and dangerous in his behaviors as noted above. He has had sleep and appetite changes. No active suicidal or homicidal ideation. PAST PSYCHIATRIC HISTORY: As above. MEDICAL HISTORY: Positive for Parkinson's disease, pacemaker in place, hypertension, atrial fibrillation, hyperlipidemia, restless leg syndrome, BPH, dysphagia. ACCU-CHEKS: Negative. CODE STATUS: Full code. ALLERGIES: Negative. DIET: Cardiac. Takes medications whole. Ambulates ad margaret. CURRENT PSYCHOTROPICS: Depakote 125 mg a.m. and 500 mg at bedtime, gabapentin 300 mg at bedtime, melatonin 5 mg at bedtime, Namenda 10 mg b.i.d., Zyprexa was added p.r.n. after I was called as an emergency by the nursing staff, ANSHU Dillard earlier in the day on account of the patient's psychotic symptoms, agitation and confusion. He is also on Risperdal 0.5 mg t.i.d., Exelon patch 13.3 mg a day, Zoloft 50 mg a day. FAMILY HISTORY: Noncontributory. SOCIAL HISTORY: No history of alcohol, drug abuse, physical, sexual or elder abuse. He is not known to be a perpetrator. 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 REVIEW OF SYSTEMS: No CV, , pulmonary, eye, ENT system symptoms on review. Reliability varies. MENTAL STATUS EXAMINATION: The patient is oriented to himself and situation. Speech has some latency, coherent. Abstraction fair, computation impaired, language function intact, attention span short. Mood and affect somewhat withdrawn. LABORATORY DATA: Reviewed. IMPRESSION: Major neurocognitive disorder; Lewy body with delusion; depression; behavioral disturbance; anxiety disorder, unspecified; impulse control disorder, unspecified; major depressive disorder, recurrent. Rest unchanged from above. PLAN: Admit to Geropsychiatry Unit at [facility]. I will see the patient daily individually from a psychiatric standpoint. Medical followup with Dr. Villeda/Dr. Plata. Check a valproic acid level, adjust Depakote to reach therapeutic level. Consider BuSpar for anxiety, agitation and consider increasing Zoloft gradually for his mood and anxiety symptoms. ESTIMATED LENGTH OF STAY: 10-12 days. DISPOSITION: Plans back to intermediate when stable. CAMERON ROSAS MD DR: TARAS/cathy JOB#: [id number] / [id number]
[2020-09-02] MEDS: LEVOTHYROXINE 25 MCG TABLET. PO SCH (05:12)
[2020-09-02 06:41] VITALS: BP 146/87
[2020-09-02] MEDS ORDERED: LEVOTHYROXINE 25 MCG TABLET. PO SCH (07:30)
[2020-09-02] MEDS: METOPROLOL SUCC 24HR ER 25 MG TAB.ER.24H. PO SCH ×2 (08:16→20:56)
[2020-09-02] MEDS: risperiDONE 0.5 MG TABLET. PO SCH ×3 (08:16→20:55)
[2020-09-02] MEDS: CARBIDOPA/LEVODOPA 10/100MG TABLET PO SCH ×4 (08:17→20:56)
[2020-09-02] MEDS: APIXABAN 5 MG TABLET. PO SCH ×2 (08:17→20:55)
[2020-09-02] MEDS: OXYBUTYNIN CHLORIDE 5 MG TABLET PO SCH ×2 (08:17→20:55)
[2020-09-02] MEDS: MEMANTINE 10 MG TABLET. PO SCH ×2 (08:17→17:38)
[2020-09-02] MEDS: POTASSIUM CHLORIDE 20 MEQ TABLET.ER. PO SCH ×2 (08:17→20:55)
[2020-09-02] MEDS: DOCUSATE SODIUM 100 MG CAPSULE PO SCH (08:21)
[2020-09-02] MEDS: TAMSULOSIN 0.4 MG CAP.ER.24H. PO SCH (08:21)
[2020-09-02] MEDS: CHLORHEXIDINE 0.12% 15 ML MOUTHWASH. SWSP SCH ×2 (08:22→20:55)
[2020-09-02] MEDS: RIVASTIGMINE 13.3MG PATCH. TD SCH (08:22)
[2020-09-02] MEDS: SENNOSIDES/DOCUSATE 8.6/50MG TABLET. PO SCH (08:22)
[2020-09-02] MEDS: ASCORBIC ACID 500 MG TABLET PO SCH (08:22)
[2020-09-02] MEDS: TIMOLOL 0.5% OPHTH SOLUTION 5ML BOTTLE. OU SCH ×2 (08:23→20:55)
[2020-09-02] MEDS: POLYETHYLENE GLYCOL 3350 17 GM PACKET. PO SCH (08:24)
[2020-09-02] MEDS: BUMETANIDE 1 MG TABLET PO SCH (08:25)
[2020-09-02] MEDS ORDERED: SERTRALINE 50 MG TABLET. PO SCH (09:00)
[2020-09-02] MEDS ORDERED: DIVALPROEX 125 MG CAP.SPRINK PO SCH (09:00)
[2020-09-02] MEDS ORDERED: DIVALPROEX ER 250 MG TAB.ER.24H. PO SCH (09:00)
--- NOTE | 2020-09-02 10:53 | CONS ---
DATE OF CONSULTATION: 09/02/2020 ATTENDING PHYSICIAN: Dr. Les Goetz. REASON FOR CONSULTATION: We are asked to see this patient for medical consultation. HISTORY OF PRESENT ILLNESS: The patient is a 70-year-old gentleman well known to us from inpatient admission in 01/2020. He is currently at [facility]. Unfortunately, he has Lewy body dementia along with Parkinson's disease. He has major neurocognitive disorders. The reason for admission this time, he has had increased confusion and called 911 about his missing meds, he has been hallucinating and being aggressive with his staff and peers. When I spoke to him, he does not remember me from the previous admission. We talked about things that happened 50-60 years ago. 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 There is no drug or alcohol use. PAST MEDICAL HISTORY: Significant for Parkinson's disease, hypothyroidism along with his underlying psychiatric illness. CURRENT MEDICATIONS: Include Tylenol, aluminum hydroxide, Eliquis, ascorbic acid, Lipitor, Bumex, Sinemet 3 times a day, chlorhexidine, diclofenac, docusate, Neurontin, Synthroid, magnesium hydroxide, melatonin, Namenda, metoprolol, multi-ingredient ointment topically, Zyprexa Zydis, oxybutynin, MiraLax, potassium, risperidone, Exelon, senna, Zoloft, Flomax, and timolol eyedrops. FAMILY HISTORY: Unobtainable. PAST SURGICAL HISTORY: Unremarkable. SOCIAL HISTORY: He is , 2 sons that are grown. He is retired from [employer]. REVIEW OF SYSTEMS: As per history of present illness. According to previous behavior, he did not display any aggressive behavior. He is rather cooperative with me. PHYSICAL EXAMINATION: GENERAL: When I saw him, this is a pleasantly confused elderly gentleman. INITIAL VITAL SIGNS: Showed a blood pressure of 146/87, pulse is 68 and regular, temperature 97.6 degrees Fahrenheit, oxygen saturation 97% on room air. HEENT: Head is without trauma. Pupils are reactive. Sclerae are nonicteric. The oropharynx is clear. NECK: Supple. No stridor or bruits. LUNGS: Good breath sounds. CARDIOVASCULAR: Showed regular heart tones. No gallops. ABDOMEN: Obese, protuberant. No organomegaly. Bowel sounds are normoactive. EXTREMITIES: Show 2+ edema of the lower extremities. SKIN: Warm and dry. NEUROLOGIC: Speech is fluent. No focal deficits. Mentation is questionable. PERTINENT LABORATORY STUDIES: The hemoglobin is 13.6 g/dL with white count of 7400. Electrolytes, BUN and creatinine are within normal range. Nonfasting blood sugar is 141. ASSESSMENT: 1. This 70-year-old gentleman has unfortunately Lewy body dementia, which is a fast developing subset of Alzheimer's dementia. 2. Essential hypertension. 3. Hyperlipidemia. 4. History of restless leg syndrome. 5. Atrial fibrillation by history. 6. Parkinson's disease. 7. Gastroesophageal reflux disease. RECOMMENDATIONS: 1. I have reviewed all his medication, they should be continued in the same dosages. 2. The patient is stable from medical standpoint. 3. We should gladly follow along during his inpatient course. Thank you again for asking me to see this patient for medical consultation. CARLOS AU MD DR: JHONY/cathy JOB#: [id number] / [id number] LES Arreola MD
[2020-09-02 11:23] LABS: THYROID STIM HORMONE (TSH) 4.28 uIU/mL (0.358-3.740)
[2020-09-02 15:55] VITALS: BP 136/79
[2020-09-02 19:10] LABS: THYROXINE 6.2 ug/dL (4.5-12.0)
[2020-09-02] MEDS: GABAPENTIN 300 MG CAPSULE. PO SCH (20:55)
[2020-09-02] MEDS: DIVALPROEX ER 500 MG TAB.ER.24H PO SCH (20:55)
[2020-09-02] MEDS: ACETAMINOPHEN 500 MG TABLET PO SCH (20:55)
[2020-09-02] MEDS: ATORVASTATIN CALCIUM 20 MG TABLET PO SCH (20:56)
[2020-09-02] MEDS: MELATONIN 3 MG TABLET PO SCH (20:57)
--- NOTE | 2020-09-02 20:59 | PDOC ---
Exam Note: Michael Note: Please also refer to the separate dictated note~for this date of service dictated separately.~Patient seen individually. Discussed the patient with Nursing staff reviewed the chart.~Reviewed interim history and current functioning. Reviewed vital signs,~Labs/ Radiology~and current medications noted below. Continue current treatment with the changes noted in the dictated addendum note Assessment: Vital Signs/I&O: Vital Signs Date Time Temp Pulse Resp B/P (MAP) Pulse Ox O2 Delivery O2 Flow Rate FiO2 09/02/20 20:56 61 136/79 09/02/20 15:55 97.6 17 97 I & O 09/01/20 09/01/20 09/02/20 15:00 23:00 07:00 Intake Total 720 ml Balance 720 ml Current Medications: Meds: Current Medications Medications (Trade) Dose Ordered Sig/Gloria Route PRN Reason Start Time Stop Time Status Last Admin Dose Admin Acetaminophen (Tylenol) 500 mg HS PO 09/01/20 21:00 09/02/20 20:55 Apixaban (Eliquis) 5 mg BID PO 09/01/20 21:00 09/02/20 20:55 Bumetanide (Bumex) 1 mg DAILY PO 09/02/20 09:00 09/02/20 08:25 Carbidopa/Levodopa (Sinemet 10/100) 0.5 tab [id number] PO 09/01/20 17:00 09/02/20 20:56 Diclofenac Sodium (Voltaren) 1 camilla PRN BID PRN TP MUSCLE PAIN 09/01/20 15:30 Divalproex Sodium (Depakote Sprinkles) 125 mg DAILY PO 09/02/20 09:00 09/02/20 09:00 DC 09/02/20 08:22 Divalproex Sodium (Depakote Er) 500 mg QHS PO 09/01/20 21:00 09/02/20 20:55 Docusate Sodium (Colace) 100 mg DAILY PO 09/02/20 09:00 09/02/20 08:21 Gabapentin (Neurontin) 300 mg HS PO 09/01/20 21:00 09/02/20 20:55 Ibuprofen (Motrin) 400 mg PRN Q8HRS PRN PO PAIN 09/01/20 15:30 UNV Levothyroxine Sodium (Synthroid) 25 mcg DAILYAC PO 09/02/20 07:30 09/01/20 19:50 DC Magnesium Hydroxide (Milk Of Magnesia) 2,400 mg PRN QHS PRN PO CONSTIPATION, 2ND CHOICE 09/01/20 15:30 Memantine (Namenda) 10 mg [id number] PO 09/01/20 16:30 09/02/20 17:38 Metoprolol Succinate (Toprol Xl) 12.5 mg BID PO 09/01/20 21:00 09/02/20 20:56 Olanzapine (ZyPREXA ZYDIS) 5 mg PRN Q12HR PRN PO ANXIETY / AGITATION 09/01/20 15:30 Polyethylene Glycol (miraLAX) 17 gm DAILY PO 09/02/20 09:00 09/02/20 08:24 Polyethylene Glycol (miraLAX) 17 gm PRN DAILY PRN PO CONSTIPATION, 1ST CHOICE 09/01/20 15:30 Potassium Chloride (Klor-Con) 20 meq BID PO 09/01/20 21:00 09/02/20 20:55 Risperidone (RisperDAL) 0.5 mg TID PO 09/01/20 21:00 09/02/20 20:55 Rivastigmine (Exelon 13.3mg) 1 patch DAILY TD 09/02/20 09:00 09/02/20 08:22 Senna/Docusate Sodium (Senna Plus) 1 tab DAILY PO 09/02/20 09:00 09/02/20 08:22 Sertraline HCl (Zoloft) 50 mg DAILY PO 09/02/20 09:00 09/02/20 16:48 DC 09/02/20 08:22 Tamsulosin HCl (Flomax) 0.4 mg DAILY PO 09/02/20 09:00 09/02/20 08:21 Ascorbic Acid (Vitamin C) 500 mg DAILY PO 09/02/20 09:00 09/02/20 08:22 Atorvastatin Calcium (Lipitor) 40 mg QHS PO 09/01/20 21:00 09/02/20 20:56 Non-Formulary Medication (Capsaicin/ Menthol (Salonpas Gel-Patch Hot)) 1 each HS TP 09/01/20 21:00 UNV Chlorhexidine Gluconate (Peridex) 15 ml BID SWSP 09/01/20 21:00 09/02/20 20:55 Multi-Ingred Cream/Lotion/Oil/ Oint (Hydrocerin) 1 camilla PRN BID PRN TP dry skin 09/01/20 16:45 Melatonin (Melatonin) 3 mg HS PO 09/01/20 21:00 09/02/20 20:57 Non-Formulary Medication (Menthol (Biofreeze)) 1 camilla PRN TID PRN TOP MUSCLE PAIN 09/01/20 15:30 UNV Cyclobenzaprine HCl (Flexeril) 10 mg PRN TID PRN PO low back pain 09/01/20 17:00 Oxybutynin Chloride (Ditropan) 5 mg BID PO 09/01/20 21:00 09/02/20 20:55 Timolol Maleate (Timoptic 0.5% [facility]) 1 drop BID OU 09/01/20 21:00 09/02/20 20:55 Multi-Ingredient Ointment (Analgesic [place]) 1 camilla PRN QID PRN TP MUSCLE PAIN 09/01/20 16:15 Cancel Al Hydroxide/Mg Hydroxide (Mylanta Plus Xs) 15 ml PRN AFTMEALHC PRN PO DYSPEPSIA 09/01/20 16:15 Levothyroxine Sodium (Synthroid) 25 mcg DAILY06 PO 09/02/20 06:00 09/02/20 05:12 Divalproex Sodium (Depakote Er) 125 mg DAILY PO 09/02/20 09:00 Cancel Sertraline HCl (Zoloft) 75 mg DAILY PO 09/03/20 09:00 09/05/20 11:00 Sertraline HCl (Zoloft) 100 mg DAILY PO 09/06/20 09:00 Current Medications Medications (Trade) Dose Ordered Sig/Gloria Route PRN Reason Start Time Stop Time Status Last Admin Dose Admin Acetaminophen (Tylenol) 500 mg HS PO 09/01/20 21:00 09/02/20 20:55 Apixaban (Eliquis) 5 mg BID PO 09/01/20 21:00 09/02/20 20:55 Bumetanide (Bumex) 1 mg DAILY PO 09/02/20 09:00 09/02/20 08:25 Divalproex Sodium (Depakote Sprinkles) 125 mg DAILY PO 09/02/20 09:00 09/02/20 09:00 DC 09/02/20 08:22 Divalproex Sodium (Depakote Er) 500 mg QHS PO 09/01/20 21:00 09/02/20 20:55 Docusate Sodium (Colace) 100 mg DAILY PO 09/02/20 09:00 09/02/20 08:21 Gabapentin (Neurontin) 300 mg HS PO 09/01/20 21:00 09/02/20 20:55 Metoprolol Succinate (Toprol Xl) 12.5 mg BID PO 09/01/20 21:00 09/02/20 20:56 Polyethylene Glycol (miraLAX) 17 gm DAILY PO 09/02/20 09:00 09/02/20 08:24 Potassium Chloride (Klor-Con) 20 meq BID PO 09/01/20 21:00 09/02/20 20:55 Risperidone (RisperDAL) 0.5 mg TID PO 09/01/20 21:00 09/02/20 20:55 Rivastigmine (Exelon 13.3mg) 1 patch DAILY TD 09/02/20 09:00 09/02/20 08:22 Senna/Docusate Sodium (Senna Plus) 1 tab DAILY PO 09/02/20 09:00 09/02/20 08:22 Sertraline HCl (Zoloft) 50 mg DAILY PO 09/02/20 09:00 09/02/20 16:48 DC 09/02/20 08:22 Tamsulosin HCl (Flomax) 0.4 mg DAILY PO 09/02/20 09:00 09/02/20 08:21 Ascorbic Acid (Vitamin C) 500 mg DAILY PO 09/02/20 09:00 09/02/20 08:22 Atorvastatin Calcium (Lipitor) 40 mg QHS PO 09/01/20 21:00 09/02/20 20:56 Chlorhexidine Gluconate (Peridex) 15 ml BID SWSP 09/01/20 21:00 09/02/20 20:55 Melatonin (Melatonin) 3 mg HS PO 09/01/20 21:00 09/02/20 20:57 Oxybutynin Chloride (Ditropan) 5 mg BID PO 09/01/20 21:00 09/02/20 20:55 Timolol Maleate (Timoptic 0.5% Oph) 1 drop BID OU 09/01/20 21:00 09/02/20 20:55 Levothyroxine Sodium (Synthroid) 25 mcg DAILY06 PO 09/02/20 06:00 09/02/20 05:12 I have reviewed the current psychotropics carefully including drug interactions. Risk benefit ratio favors no change other than as noted in my dictated progress note. Diagnosis: Problems: (1) Anxiety disorder (2) Impulse control disorder (3) Lewy body dementia with behavioral disturbance (4) Dementia, vascular, with delusions (5) Dementia in Alzheimer's disease with delusions (6) Major neurocognitive disorder CAMERON ROSAS MD Sep 02, 2020 20:58
[2020-09-03 04:07] LABS: HEMOGLOBIN A1C 6.7 % (4.8-5.6)
[2020-09-03] MEDS: LEVOTHYROXINE 25 MCG TABLET. PO SCH (05:12)
[2020-09-03] MEDS: MAGNESIUM HYDROXIDE 2,400 MG/30 ML ORAL.SUSP. PO PRN (05:12)
[2020-09-03 06:31] VITALS: BP 158/89
--- NOTE | 2020-09-03 08:49 | PDOC ---
Exam Note: Michael Note: This note is a late entry for 09/02/2020 covers elements not covered in my initial note. Subjective: The patient was reviewed on telehealth rounds in the evening of 09/02/2020 with Maira BRASHER. Discussed with nursing staff, reviewed the chart. He slept 6-1/4 hours previous night. The patient remains somewhat anxious frequently up to the nursing desk. He is quite confused at certain times, much more oriented at other times. Review of Systems: No CV, , pulmonary, eye, ENT system symptoms on review. Mental Status Exam: The patient is alert and oriented to himself and at times to situation. He is somewhat withdrawn, depressed. Speech has some latency. Often response is monosyllabic. Abstraction is fair. Computation is impaired. Language function is intact. Short-term memory is impaired. No suicidal or homicidal ideation. Laboratory Data: Reviewed. Impression: Major neurocognitive disorder Lewy body with delusion, depression, behavioral disturbance. Major depressive disorder with psychotic features. Anxiety disorder unspecified. Impulse control disorder unspecified. Plan: Continue current psychotropics. Increase Zoloft to 75 mg a day and 3 days later to 100 mg a day. Maintain Namenda and Exelon patch, Risperdal at current dosage, melatonin, Depakote at current dosage being adjusted and repeat labs and valproic acid level, adjust to reach therapeutic level. Assessment: Vital Signs/I&O: Vital Signs Date Time Temp Pulse Resp B/P (MAP) Pulse Ox O2 Delivery O2 Flow Rate FiO2 09/03/20 06:31 97.8 61 16 158/89 (112) 95 Room Air I & O 09/02/20 09/02/20 09/03/20 15:00 23:00 07:00 Intake Total 720 ml 240 ml 120 ml Balance 720 ml 240 ml 120 ml Current Medications: Meds: Current Medications Medications (Trade) Dose Ordered Sig/Gloria Route PRN Reason Start Time Stop Time Status Last Admin Dose Admin Acetaminophen (Tylenol) 500 mg HS PO 09/01/20 21:00 09/02/20 20:55 Apixaban (Eliquis) 5 mg BID PO 09/01/20 21:00 09/02/20 20:55 Bumetanide (Bumex) 1 mg DAILY PO 09/02/20 09:00 09/02/20 08:25 Carbidopa/Levodopa (Sinemet 10/100) 0.5 tab [id number] PO 09/01/20 17:00 09/02/20 20:56 Diclofenac Sodium (Voltaren) 1 camilla PRN BID PRN TP MUSCLE PAIN 09/01/20 15:30 Divalproex Sodium (Depakote Sprinkles) 125 mg DAILY PO 09/02/20 09:00 09/02/20 09:00 DC 09/02/20 08:22 Divalproex Sodium (Depakote Er) 500 mg QHS PO 09/01/20 21:00 09/02/20 20:55 Docusate Sodium (Colace) 100 mg DAILY PO 09/02/20 09:00 09/02/20 08:21 Gabapentin (Neurontin) 300 mg HS PO 09/01/20 21:00 09/02/20 20:55 Ibuprofen (Motrin) 400 mg PRN Q8HRS PRN PO PAIN 09/01/20 15:30 UNV Levothyroxine Sodium (Synthroid) 25 mcg DAILYAC PO 09/02/20 07:30 09/01/20 19:50 DC Magnesium Hydroxide (Milk Of Magnesia) 2,400 mg PRN QHS PRN PO CONSTIPATION, 2ND CHOICE 09/01/20 15:30 09/03/20 05:12 Memantine (Namenda) 10 mg [id number] PO 09/01/20 16:30 09/02/20 17:38 Metoprolol Succinate (Toprol Xl) 12.5 mg BID PO 09/01/20 21:00 09/02/20 20:56 Olanzapine (ZyPREXA ZYDIS) 5 mg PRN Q12HR PRN PO ANXIETY / AGITATION 09/01/20 15:30 Polyethylene Glycol (miraLAX) 17 gm DAILY PO 09/02/20 09:00 09/02/20 08:24 Polyethylene Glycol (miraLAX) 17 gm PRN DAILY PRN PO CONSTIPATION, 1ST CHOICE 09/01/20 15:30 Potassium Chloride (Klor-Con) 20 meq BID PO 09/01/20 21:00 09/02/20 20:55 Risperidone (RisperDAL) 0.5 mg TID PO 09/01/20 21:00 09/02/20 20:55 Rivastigmine (Exelon 13.3mg) 1 patch DAILY TD 09/02/20 09:00 09/02/20 08:22 Senna/Docusate Sodium (Senna Plus) 1 tab DAILY PO 09/02/20 09:00 09/02/20 08:22 Sertraline HCl (Zoloft) 50 mg DAILY PO 09/02/20 09:00 09/02/20 16:48 DC 09/02/20 08:22 Tamsulosin HCl (Flomax) 0.4 mg DAILY PO 09/02/20 09:00 09/02/20 08:21 Ascorbic Acid (Vitamin C) 500 mg DAILY PO 09/02/20 09:00 09/02/20 08:22 Atorvastatin Calcium (Lipitor) 40 mg QHS PO 09/01/20 21:00 09/02/20 20:56 Non-Formulary Medication (Capsaicin/ Menthol (Salonpas Gel-Patch Hot)) 1 each HS TP 09/01/20 21:00 UNV Chlorhexidine Gluconate (Peridex) 15 ml BID SWSP 09/01/20 21:00 09/02/20 20:55 Multi-Ingred Cream/Lotion/Oil/ Oint (Hydrocerin) 1 camilla PRN BID PRN TP dry skin 09/01/20 16:45 Melatonin (Melatonin) 3 mg HS PO 09/01/20 21:00 09/02/20 20:57 Non-Formulary Medication (Menthol (Biofreeze)) 1 camilla PRN TID PRN TOP MUSCLE PAIN 09/01/20 15:30 UNV Cyclobenzaprine HCl (Flexeril) 10 mg PRN TID PRN PO low back pain 09/01/20 17:00 Oxybutynin Chloride (Ditropan) 5 mg BID PO 09/01/20 21:00 09/02/20 20:55 Timolol Maleate (Timoptic 0.5% Oph) 1 drop BID OU 09/01/20 21:00 09/02/20 20:55 Multi-Ingredient Ointment (Analgesic [place]) 1 camilla PRN QID PRN TP MUSCLE PAIN 09/01/20 16:15 Cancel Al Hydroxide/Mg Hydroxide (Mylanta Plus Xs) 15 ml PRN AFTMEALHC PRN PO DYSPEPSIA 09/01/20 16:15 Levothyroxine Sodium (Synthroid) 25 mcg DAILY06 PO 09/02/20 06:00 09/03/20 05:12 Divalproex Sodium (Depakote Er) 125 mg DAILY PO 09/02/20 09:00 Cancel Sertraline HCl (Zoloft) 75 mg DAILY PO 09/03/20 09:00 09/05/20 11:00 Sertraline HCl (Zoloft) 100 mg DAILY PO 09/06/20 09:00 Divalproex Sodium (Depakote Sprinkles) 125 mg DAILY PO 09/03/20 09:00 Current Medications Medications (Trade) Dose Ordered Sig/Gloria Route PRN Reason Start Time Stop Time Status Last Admin Dose Admin Bumetanide (Bumex) 1 mg DAILY PO 09/02/20 09:00 09/02/20 08:25 Divalproex Sodium (Depakote Sprinkles) 125 mg DAILY PO 09/02/20 09:00 09/02/20 09:00 DC 09/02/20 08:22 Docusate Sodium (Colace) 100 mg DAILY PO 09/02/20 09:00 09/02/20 08:21 Polyethylene Glycol (miraLAX) 17 gm DAILY PO 09/02/20 09:00 09/02/20 08:24 Rivastigmine (Exelon 13.3mg) 1 patch DAILY TD 09/02/20 09:00 09/02/20 08:22 Senna/Docusate Sodium (Senna Plus) 1 tab DAILY PO 09/02/20 09:00 09/02/20 08:22 Sertraline HCl (Zoloft) 50 mg DAILY PO 09/02/20 09:00 09/02/20 16:48 DC 09/02/20 08:22 Tamsulosin HCl (Flomax) 0.4 mg DAILY PO 09/02/20 09:00 09/02/20 08:21 Ascorbic Acid (Vitamin C) 500 mg DAILY PO 09/02/20 09:00 09/02/20 08:22 I have reviewed the current psychotropics carefully including drug interactions. Risk benefit ratio favors no change other than as noted in my dictated progress note. Diagnosis: Problems: (1) Anxiety disorder (2) Impulse control disorder (3) Lewy body dementia with behavioral disturbance (4) Dementia, vascular, with delusions (5) Dementia in Alzheimer's disease with delusions (6) Major neurocognitive disorder (7) Major depressive disorder with psychotic features CAMERON ROSAS MD Sep 03, 2020 08:49
[2020-09-03] MEDS: BUMETANIDE 1 MG TABLET PO SCH (09:00)
[2020-09-03] MEDS: POLYETHYLENE GLYCOL 3350 17 GM PACKET. PO SCH (09:41)
[2020-09-03] MEDS: RIVASTIGMINE 13.3MG PATCH. TD SCH (09:41)
[2020-09-03] MEDS: SENNOSIDES/DOCUSATE 8.6/50MG TABLET. PO SCH (09:41)
[2020-09-03] MEDS: CHLORHEXIDINE 0.12% 15 ML MOUTHWASH. SWSP SCH ×2 (09:41→20:39)
[2020-09-03] MEDS: CARBIDOPA/LEVODOPA 10/100MG TABLET PO SCH ×4 (09:41→20:39)
[2020-09-03] MEDS: POTASSIUM CHLORIDE 20 MEQ TABLET.ER. PO SCH ×2 (09:42→20:40)
[2020-09-03] MEDS: ASCORBIC ACID 500 MG TABLET PO SCH (09:42)
[2020-09-03] MEDS: MEMANTINE 10 MG TABLET. PO SCH ×2 (09:42→16:54)
[2020-09-03] MEDS: DOCUSATE SODIUM 100 MG CAPSULE PO SCH (09:42)
[2020-09-03] MEDS: OXYBUTYNIN CHLORIDE 5 MG TABLET PO SCH ×2 (09:42→20:39)
[2020-09-03] MEDS: APIXABAN 5 MG TABLET. PO SCH ×2 (09:42→20:40)
[2020-09-03] MEDS: TAMSULOSIN 0.4 MG CAP.ER.24H. PO SCH (09:42)
[2020-09-03] MEDS: METOPROLOL SUCC 24HR ER 25 MG TAB.ER.24H. PO SCH ×2 (09:42→20:40)
[2020-09-03] MEDS: risperiDONE 0.5 MG TABLET. PO SCH ×3 (09:43→20:40)
[2020-09-03] MEDS: DIVALPROEX 125 MG CAP.SPRINK PO SCH (09:45)
[2020-09-03] MEDS: TIMOLOL 0.5% OPHTH SOLUTION 5ML BOTTLE. OU SCH ×2 (09:45→20:42)
[2020-09-03] MEDS: SERTRALINE 50 MG TABLET. PO SCH (09:46)
[2020-09-03 16:42] VITALS: BP 132/78
--- NOTE | 2020-09-03 16:47 | EKG ---
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
[2020-09-03] MEDS: ATORVASTATIN CALCIUM 20 MG TABLET PO SCH (20:40)
[2020-09-03] MEDS: DIVALPROEX ER 500 MG TAB.ER.24H PO SCH (20:40)
[2020-09-03] MEDS: ACETAMINOPHEN 500 MG TABLET PO SCH (20:40)
[2020-09-03] MEDS: MELATONIN 3 MG TABLET PO SCH (20:41)
[2020-09-03] MEDS: GABAPENTIN 300 MG CAPSULE. PO SCH (20:41)
--- NOTE | 2020-09-03 21:04 | PDOC ---
Exam Note: Michael Note: Please also refer to the separate dictated note~for this date of service dictated separately.~Patient seen individually. Discussed the patient with Nursing staff reviewed the chart.~Reviewed interim history and current functioning. Reviewed vital signs,~Labs/ Radiology~and current medications noted below. Continue current treatment with the changes noted in the dictated addendum note Assessment: Vital Signs/I&O: Vital Signs Date Time Temp Pulse Resp B/P (MAP) Pulse Ox O2 Delivery O2 Flow Rate FiO2 09/03/20 20:40 61 132/78 09/03/20 16:42 97.3 16 97 09/03/20 06:31 Room Air I & O 09/02/20 09/02/20 09/03/20 15:00 23:00 07:00 Intake Total 720 ml 240 ml 120 ml Balance 720 ml 240 ml 120 ml Current Medications: Meds: Current Medications Medications (Trade) Dose Ordered Sig/Gloria Route PRN Reason Start Time Stop Time Status Last Admin Dose Admin Acetaminophen (Tylenol) 500 mg HS PO 09/01/20 21:00 09/03/20 20:40 Apixaban (Eliquis) 5 mg BID PO 09/01/20 21:00 09/03/20 20:40 Bumetanide (Bumex) 1 mg DAILY PO 09/02/20 09:00 09/03/20 09:00 Carbidopa/Levodopa (Sinemet 10/100) 0.5 tab [id number] PO 09/01/20 17:00 09/03/20 20:39 Diclofenac Sodium (Voltaren) 1 camilla PRN BID PRN TP MUSCLE PAIN 09/01/20 15:30 Divalproex Sodium (Depakote Sprinkles) 125 mg DAILY PO 09/02/20 09:00 09/02/20 09:00 DC 09/02/20 08:22 Divalproex Sodium (Depakote Er) 500 mg QHS PO 09/01/20 21:00 09/03/20 20:40 Docusate Sodium (Colace) 100 mg DAILY PO 09/02/20 09:00 09/03/20 09:42 Gabapentin (Neurontin) 300 mg HS PO 09/01/20 21:00 09/03/20 20:41 Ibuprofen (Motrin) 400 mg PRN Q8HRS PRN PO PAIN 09/01/20 15:30 UNV Levothyroxine Sodium (Synthroid) 25 mcg DAILYAC PO 09/02/20 07:30 09/01/20 19:50 DC Magnesium Hydroxide (Milk Of Magnesia) 2,400 mg PRN QHS PRN PO CONSTIPATION, 2ND CHOICE 09/01/20 15:30 09/03/20 05:12 Memantine (Namenda) 10 mg [id number] PO 09/01/20 16:30 09/03/20 16:54 Metoprolol Succinate (Toprol Xl) 12.5 mg BID PO 09/01/20 21:00 09/03/20 20:40 Olanzapine (ZyPREXA ZYDIS) 5 mg PRN Q12HR PRN PO ANXIETY / AGITATION 09/01/20 15:30 Polyethylene Glycol (miraLAX) 17 gm DAILY PO 09/02/20 09:00 09/03/20 09:41 Polyethylene Glycol (miraLAX) 17 gm PRN DAILY PRN PO CONSTIPATION, 1ST CHOICE 09/01/20 15:30 Potassium Chloride (Klor-Con) 20 meq BID PO 09/01/20 21:00 09/03/20 20:40 Risperidone (RisperDAL) 0.5 mg TID PO 09/01/20 21:00 09/03/20 20:40 Rivastigmine (Exelon 13.3mg) 1 patch DAILY TD 09/02/20 09:00 09/03/20 09:41 Senna/Docusate Sodium (Senna Plus) 1 tab DAILY PO 09/02/20 09:00 09/03/20 09:41 Sertraline HCl (Zoloft) 50 mg DAILY PO 09/02/20 09:00 09/02/20 16:48 DC 09/02/20 08:22 Tamsulosin HCl (Flomax) 0.4 mg DAILY PO 09/02/20 09:00 09/03/20 09:42 Ascorbic Acid (Vitamin C) 500 mg DAILY PO 09/02/20 09:00 09/03/20 09:42 Atorvastatin Calcium (Lipitor) 40 mg QHS PO 09/01/20 21:00 09/03/20 20:40 Non-Formulary Medication (Capsaicin/ Menthol (Salonpas Gel-Patch Hot)) 1 each HS TP 09/01/20 21:00 UNV Chlorhexidine Gluconate (Peridex) 15 ml BID SWSP 09/01/20 21:00 09/03/20 20:39 Multi-Ingred Cream/Lotion/Oil/ Oint (Hydrocerin) 1 camilla PRN BID PRN TP dry skin 09/01/20 16:45 Melatonin (Melatonin) 3 mg HS PO 09/01/20 21:00 09/03/20 20:41 Non-Formulary Medication (Menthol (Biofreeze)) 1 camilla PRN TID PRN TOP MUSCLE PAIN 09/01/20 15:30 UNV Cyclobenzaprine HCl (Flexeril) 10 mg PRN TID PRN PO low back pain 09/01/20 17:00 Oxybutynin Chloride (Ditropan) 5 mg BID PO 09/01/20 21:00 09/03/20 20:39 Timolol Maleate (Timoptic 0.5% Oph) 1 drop BID OU 09/01/20 21:00 09/03/20 20:42 Multi-Ingredient Ointment (Analgesic [place]) 1 camilla PRN QID PRN TP MUSCLE PAIN 09/01/20 16:15 Cancel Al Hydroxide/Mg Hydroxide (Mylanta Plus Xs) 15 ml PRN AFTMEALHC PRN PO DYSPEPSIA 09/01/20 16:15 Levothyroxine Sodium (Synthroid) 25 mcg DAILY06 PO 09/02/20 06:00 09/03/20 05:12 Divalproex Sodium (Depakote Er) 125 mg DAILY PO 09/02/20 09:00 Cancel Sertraline HCl (Zoloft) 75 mg DAILY PO 09/03/20 09:00 09/05/20 11:00 09/03/20 09:46 Sertraline HCl (Zoloft) 100 mg DAILY PO 09/06/20 09:00 Divalproex Sodium (Depakote Sprinkles) 125 mg DAILY PO 09/03/20 09:00 09/03/20 09:45 Current Medications Medications (Trade) Dose Ordered Sig/Gloria Route PRN Reason Start Time Stop Time Status Last Admin Dose Admin Sertraline HCl (Zoloft) 75 mg DAILY PO 09/03/20 09:00 09/05/20 11:00 09/03/20 09:46 Divalproex Sodium (Depakote Sprinkles) 125 mg DAILY PO 09/03/20 09:00 09/03/20 09:45 I have reviewed the current psychotropics carefully including drug interactions. Risk benefit ratio favors no change other than as noted in my dictated progress note. Diagnosis: Problems: (1) Anxiety disorder (2) Impulse control disorder (3) Lewy body dementia with behavioral disturbance (4) Dementia, vascular, with delusions (5) Dementia in Alzheimer's disease with delusions (6) Major neurocognitive disorder (7) Major depressive disorder with psychotic features CAMERON ROSAS MD Sep 03, 2020 21:04
[2020-09-04] MEDS: LEVOTHYROXINE 25 MCG TABLET. PO SCH (05:12)
[2020-09-04] MEDS: MAGNESIUM HYDROXIDE 2,400 MG/30 ML ORAL.SUSP. PO PRN (05:12)
[2020-09-04] MEDS: CYCLOBENZAPRINE 10 MG TABLET. PO PRN ×2 (05:12→20:19)
[2020-09-04 06:15] VITALS: BP 139/85
[2020-09-04 07:23] LABS: VAL ACID 49 mcg/mL (50-100)
--- NOTE | 2020-09-04 08:37 | PDOC ---
Exam Note: Michael Note: This note is a late entry for 09/03/2020 covers elements not covered in my initial note. Subjective: The patient was seen face to face in the morning of 09/03/2020 for a treatment team meeting with Lissy Delgado, Karina Blanton and Fabiola (oncology social work), Serina Cosme, activity therapy and Maris BRASHER. Discussed with nursing staff, reviewed the chart. He slept 6-1/2 hours previous night. The patient remains confused, anxious, called 911 because he said he was missing his children. He was playing possum per nursing report when his meds were being offered to him. Review of Systems: No CV, , pulmonary, eye, ENT system symptoms on review. Reliability varies. Mental Status Exam: The patient is oriented to himself and situation. Speech is coherent, has some latency. Abstraction is fair. Computation is impaired. Language function is intact. Mood and affect withdrawn. No suicidal or homicidal ideation. Laboratory Data: Reviewed. Impression: Major neurocognitive disorder Lewy body with delusion, depression, behavioral disturbance. Major depressive disorder with psychotic features. Anxiety disorder unspecified. Impulse control disorder unspecified. Plan: No change from initial note. Assessment: Vital Signs/I&O: Vital Signs Date Time Temp Pulse Resp B/P (MAP) Pulse Ox O2 Delivery O2 Flow Rate FiO2 09/04/20 06:15 96.5 68 20 139/85 (103) 94 Room Air I & O 09/03/20 09/03/20 09/04/20 15:00 23:00 07:00 Intake Total 600 ml 360 ml Balance 600 ml 360 ml Labs: Laboratory Tests Test 09/04/20 06:49 Valproic Acid Level 49 mcg/mL (50-100) L Valproic Acid Last Dose Date 09/03/20 Valproic Acid Last Dose Time 2100 Current Medications: Meds: Laboratory Tests Test 09/04/20 06:49 Valproic Acid (Depakene) Level 49 mcg/mL Valproic Acid Last Dose Date 09/03/20 Valproic Acid Last Dose Time 2100 Current Medications Medications (Trade) Dose Ordered Sig/Gloria Route PRN Reason Start Time Stop Time Status Last Admin Dose Admin Acetaminophen (Tylenol) 500 mg HS PO 09/01/20 21:00 09/03/20 20:40 Apixaban (Eliquis) 5 mg BID PO 09/01/20 21:00 09/03/20 20:40 Bumetanide (Bumex) 1 mg DAILY PO 09/02/20 09:00 09/03/20 09:00 Carbidopa/Levodopa (Sinemet 10/100) 0.5 tab [id number] PO 09/01/20 17:00 09/03/20 20:39 Diclofenac Sodium (Voltaren) 1 camilla PRN BID PRN TP MUSCLE PAIN 09/01/20 15:30 Divalproex Sodium (Depakote Sprinkles) 125 mg DAILY PO 09/02/20 09:00 09/02/20 09:00 DC 09/02/20 08:22 Divalproex Sodium (Depakote Er) 500 mg QHS PO 09/01/20 21:00 09/03/20 20:40 Docusate Sodium (Colace) 100 mg DAILY PO 09/02/20 09:00 09/03/20 09:42 Gabapentin (Neurontin) 300 mg HS PO 09/01/20 21:00 09/03/20 20:41 Ibuprofen (Motrin) 400 mg PRN Q8HRS PRN PO PAIN 09/01/20 15:30 UNV Levothyroxine Sodium (Synthroid) 25 mcg DAILYAC PO 09/02/20 07:30 09/01/20 19:50 DC Magnesium Hydroxide (Milk Of Magnesia) 2,400 mg PRN QHS PRN PO CONSTIPATION, 2ND CHOICE 09/01/20 15:30 09/04/20 05:12 Memantine (Namenda) 10 mg [id number] PO 09/01/20 16:30 09/03/20 16:54 Metoprolol Succinate (Toprol Xl) 12.5 mg BID PO 09/01/20 21:00 09/03/20 20:40 Olanzapine (ZyPREXA ZYDIS) 5 mg PRN Q12HR PRN PO ANXIETY / AGITATION 09/01/20 15:30 Polyethylene Glycol (miraLAX) 17 gm DAILY PO 09/02/20 09:00 09/03/20 09:41 Polyethylene Glycol (miraLAX) 17 gm PRN DAILY PRN PO CONSTIPATION, 1ST CHOICE 09/01/20 15:30 Potassium Chloride (Klor-Con) 20 meq BID PO 09/01/20 21:00 09/03/20 20:40 Risperidone (RisperDAL) 0.5 mg TID PO 09/01/20 21:00 09/03/20 20:40 Rivastigmine (Exelon 13.3mg) 1 patch DAILY TD 09/02/20 09:00 09/03/20 09:41 Senna/Docusate Sodium (Senna Plus) 1 tab DAILY PO 09/02/20 09:00 09/03/20 09:41 Sertraline HCl (Zoloft) 50 mg DAILY PO 09/02/20 09:00 09/02/20 16:48 DC 09/02/20 08:22 Tamsulosin HCl (Flomax) 0.4 mg DAILY PO 09/02/20 09:00 09/03/20 09:42 Ascorbic Acid (Vitamin C) 500 mg DAILY PO 09/02/20 09:00 09/03/20 09:42 Atorvastatin Calcium (Lipitor) 40 mg QHS PO 09/01/20 21:00 09/03/20 20:40 Non-Formulary Medication (Capsaicin/ Menthol (Salonpas Gel-Patch Hot)) 1 each HS TP 09/01/20 21:00 UNV Chlorhexidine Gluconate (Peridex) 15 ml BID SWSP 09/01/20 21:00 09/03/20 20:39 Multi-Ingred Cream/Lotion/Oil/ Oint (Hydrocerin) 1 camilla PRN BID PRN TP dry skin 09/01/20 16:45 Melatonin (Melatonin) 3 mg HS PO 09/01/20 21:00 09/03/20 20:41 Non-Formulary Medication (Menthol (Biofreeze)) 1 camilla PRN TID PRN TOP MUSCLE PAIN 09/01/20 15:30 UNV Cyclobenzaprine HCl (Flexeril) 10 mg PRN TID PRN PO low back pain 09/01/20 17:00 09/04/20 05:12 Oxybutynin Chloride (Ditropan) 5 mg BID PO 09/01/20 21:00 09/03/20 20:39 Timolol Maleate (Timoptic 0.5% Ophth) 1 drop BID OU 09/01/20 21:00 09/03/20 20:42 Multi-Ingredient Ointment (Analgesic [place]) 1 camilla PRN QID PRN TP MUSCLE PAIN 09/01/20 16:15 Cancel Al Hydroxide/Mg Hydroxide (Mylanta Plus Xs) 15 ml PRN AFTMEALHC PRN PO DYSPEPSIA 09/01/20 16:15 Levothyroxine Sodium (Synthroid) 25 mcg DAILY06 PO 09/02/20 06:00 09/04/20 05:12 Divalproex Sodium (Depakote Er) 125 mg DAILY PO 09/02/20 09:00 Cancel Sertraline HCl (Zoloft) 75 mg DAILY PO 09/03/20 09:00 09/05/20 11:00 09/03/20 09:46 Sertraline HCl (Zoloft) 100 mg DAILY PO 09/06/20 09:00 Divalproex Sodium (Depakote Sprinkles) 125 mg DAILY PO 09/03/20 09:00 09/03/20 09:45 Current Medications Medications (Trade) Dose Ordered Sig/Gloria Route PRN Reason Start Time Stop Time Status Last Admin Dose Admin Sertraline HCl (Zoloft) 75 mg DAILY PO 09/03/20 09:00 09/05/20 11:00 09/03/20 09:46 Divalproex Sodium (Depakote Sprinkles) 125 mg DAILY PO 09/03/20 09:00 09/03/20 09:45 I have reviewed the current psychotropics carefully including drug interactions. Risk benefit ratio favors no change other than as noted in my dictated progress note. Diagnosis: Problems: (1) Anxiety disorder (2) Impulse control disorder (3) Lewy body dementia with behavioral disturbance (4) Dementia, vascular, with delusions (5) Dementia in Alzheimer's disease with delusions (6) Major neurocognitive disorder (7) Major depressive disorder with psychotic features CAMERON ROSAS MD Sep 04, 2020 08:37
[2020-09-04] MEDS: BUMETANIDE 1 MG TABLET PO SCH (09:00)
[2020-09-04] MEDS: RIVASTIGMINE 13.3MG PATCH. TD SCH (10:51)
[2020-09-04] MEDS: MEMANTINE 10 MG TABLET. PO SCH ×2 (10:51→16:47)
[2020-09-04] MEDS: METOPROLOL SUCC 24HR ER 25 MG TAB.ER.24H. PO SCH ×2 (10:52→20:19)
[2020-09-04] MEDS: POTASSIUM CHLORIDE 20 MEQ TABLET.ER. PO SCH ×2 (10:52→20:18)
[2020-09-04] MEDS: ASCORBIC ACID 500 MG TABLET PO SCH (10:52)
[2020-09-04] MEDS: CARBIDOPA/LEVODOPA 10/100MG TABLET PO SCH ×4 (10:52→20:18)
[2020-09-04] MEDS: APIXABAN 5 MG TABLET. PO SCH ×2 (10:52→20:18)
[2020-09-04] MEDS: DIVALPROEX 125 MG CAP.SPRINK PO SCH (10:52)
[2020-09-04] MEDS: risperiDONE 0.5 MG TABLET. PO SCH ×3 (10:52→20:19)
[2020-09-04] MEDS: TAMSULOSIN 0.4 MG CAP.ER.24H. PO SCH (10:52)
[2020-09-04] MEDS: SERTRALINE 50 MG TABLET. PO SCH (10:53)
[2020-09-04] MEDS: SENNOSIDES/DOCUSATE 8.6/50MG TABLET. PO SCH (10:53)
[2020-09-04] MEDS: OXYBUTYNIN CHLORIDE 5 MG TABLET PO SCH ×2 (10:53→20:19)
[2020-09-04] MEDS: DOCUSATE SODIUM 100 MG CAPSULE PO SCH (10:53)
[2020-09-04] MEDS: TIMOLOL 0.5% OPHTH SOLUTION 5ML BOTTLE. OU SCH ×2 (10:55→20:17)
[2020-09-04] MEDS: POLYETHYLENE GLYCOL 3350 17 GM PACKET. PO SCH (10:55)
[2020-09-04] MEDS: CHLORHEXIDINE 0.12% 15 ML MOUTHWASH. SWSP SCH ×2 (10:55→20:17)
[2020-09-04 16:27] VITALS: BP 112/75
[2020-09-04] MEDS: MELATONIN 3 MG TABLET PO SCH (20:18)
[2020-09-04] MEDS: DIVALPROEX ER 500 MG TAB.ER.24H PO SCH (20:18)
[2020-09-04] MEDS: GABAPENTIN 300 MG CAPSULE. PO SCH (20:18)
[2020-09-04] MEDS: ACETAMINOPHEN 500 MG TABLET PO SCH (20:19)
[2020-09-04] MEDS: ATORVASTATIN CALCIUM 20 MG TABLET PO SCH (20:19)
--- NOTE | 2020-09-04 21:34 | PDOC ---
Exam Note: Michael Note: Please also refer to the separate dictated note~for this date of service dictated separately.~Patient seen individually. Discussed the patient with Nursing staff reviewed the chart.~Reviewed interim history and current functioning. Reviewed vital signs,~Labs/ Radiology~and current medications noted below. Continue current treatment with the changes noted in the dictated addendum note Assessment: Vital Signs/I&O: Vital Signs Date Time Temp Pulse Resp B/P (MAP) Pulse Ox O2 Delivery O2 Flow Rate FiO2 09/04/20 20:19 66 112/75 09/04/20 16:27 98.4 16 98 Room Air I & O 09/03/20 09/03/20 09/04/20 15:00 23:00 07:00 Intake Total 600 ml 360 ml Balance 600 ml 360 ml Labs: Laboratory Tests Test 09/04/20 06:49 Valproic Acid Level 49 mcg/mL (50-100) L Valproic Acid Last Dose Date 09/03/20 Valproic Acid Last Dose Time 2100 Current Medications: Meds: Laboratory Tests Test 09/04/20 06:49 Valproic Acid (Depakene) Level 49 mcg/mL Valproic Acid Last Dose Date 09/03/20 Valproic Acid Last Dose Time 2100 Current Medications Medications (Trade) Dose Ordered Sig/Gloria Route PRN Reason Start Time Stop Time Status Last Admin Dose Admin Acetaminophen (Tylenol) 500 mg HS PO 09/01/20 21:00 09/04/20 20:19 Apixaban (Eliquis) 5 mg BID PO 09/01/20 21:00 09/04/20 20:18 Bumetanide (Bumex) 1 mg DAILY PO 09/02/20 09:00 09/04/20 09:00 Carbidopa/Levodopa (Sinemet 10/100) 0.5 tab [id number] PO 09/01/20 17:00 09/04/20 20:18 Diclofenac Sodium (Voltaren) 1 camilla PRN BID PRN TP MUSCLE PAIN 09/01/20 15:30 Divalproex Sodium (Depakote Sprinkles) 125 mg DAILY PO 09/02/20 09:00 09/02/20 09:00 DC 09/02/20 08:22 Divalproex Sodium (Depakote Er) 500 mg QHS PO 09/01/20 21:00 09/04/20 20:18 Docusate Sodium (Colace) 100 mg DAILY PO 09/02/20 09:00 09/04/20 10:53 Gabapentin (Neurontin) 300 mg HS PO 09/01/20 21:00 09/04/20 20:18 Ibuprofen (Motrin) 400 mg PRN Q8HRS PRN PO PAIN 09/01/20 15:30 UNV Levothyroxine Sodium (Synthroid) 25 mcg DAILYAC PO 09/02/20 07:30 09/01/20 19:50 DC Magnesium Hydroxide (Milk Of Magnesia) 2,400 mg PRN QHS PRN PO CONSTIPATION, 2ND CHOICE 09/01/20 15:30 09/04/20 05:12 Memantine (Namenda) 10 mg [id number] PO 09/01/20 16:30 09/04/20 16:47 Metoprolol Succinate (Toprol Xl) 12.5 mg BID PO 09/01/20 21:00 09/04/20 20:19 Olanzapine (ZyPREXA ZYDIS) 5 mg PRN Q12HR PRN PO ANXIETY / AGITATION 09/01/20 15:30 Polyethylene Glycol (miraLAX) 17 gm DAILY PO 09/02/20 09:00 09/04/20 10:55 Polyethylene Glycol (miraLAX) 17 gm PRN DAILY PRN PO CONSTIPATION, 1ST CHOICE 09/01/20 15:30 Potassium Chloride (Klor-Con) 20 meq BID PO 09/01/20 21:00 09/04/20 20:18 Risperidone (RisperDAL) 0.5 mg TID PO 09/01/20 21:00 09/04/20 20:19 Rivastigmine (Exelon 13.3mg) 1 patch DAILY TD 09/02/20 09:00 09/04/20 10:51 Senna/Docusate Sodium (Senna Plus) 1 tab DAILY PO 09/02/20 09:00 09/04/20 10:53 Sertraline HCl (Zoloft) 50 mg DAILY PO 09/02/20 09:00 09/02/20 16:48 DC 09/02/20 08:22 Tamsulosin HCl (Flomax) 0.4 mg DAILY PO 09/02/20 09:00 09/04/20 10:52 Ascorbic Acid (Vitamin C) 500 mg DAILY PO 09/02/20 09:00 09/04/20 10:52 Atorvastatin Calcium (Lipitor) 40 mg QHS PO 09/01/20 21:00 09/04/20 20:19 Non-Formulary Medication (Capsaicin/ Menthol (Salonpas Gel-Patch Hot)) 1 each HS TP 09/01/20 21:00 UNV Chlorhexidine Gluconate (Peridex) 15 ml BID SWSP 09/01/20 21:00 09/04/20 20:17 Multi-Ingred Cream/Lotion/Oil/ Oint (Hydrocerin) 1 camilla PRN BID PRN TP dry skin 09/01/20 16:45 Melatonin (Melatonin) 3 mg HS PO 09/01/20 21:00 09/04/20 20:18 Non-Formulary Medication (Menthol (Biofreeze)) 1 camilla PRN TID PRN TOP MUSCLE PAIN 09/01/20 15:30 UNV Cyclobenzaprine HCl (Flexeril) 10 mg PRN TID PRN PO low back pain 09/01/20 17:00 09/04/20 20:19 Oxybutynin Chloride (Ditropan) 5 mg BID PO 09/01/20 21:00 09/04/20 20:19 Timolol Maleate (Timoptic 0.5% [facility]) 1 drop BID OU 09/01/20 21:00 09/04/20 20:17 Multi-Ingredient Ointment (Analgesic [place]) 1 camilla PRN QID PRN TP MUSCLE PAIN 09/01/20 16:15 Cancel Al Hydroxide/Mg Hydroxide (Mylanta Plus Xs) 15 ml PRN AFTMEALHC PRN PO DYSPEPSIA 09/01/20 16:15 Levothyroxine Sodium (Synthroid) 25 mcg DAILY06 PO 09/02/20 06:00 09/04/20 05:12 Divalproex Sodium (Depakote Er) 125 mg DAILY PO 09/02/20 09:00 Cancel Sertraline HCl (Zoloft) 75 mg DAILY PO 09/03/20 09:00 09/05/20 11:00 09/04/20 10:53 Sertraline HCl (Zoloft) 100 mg DAILY PO 09/06/20 09:00 Divalproex Sodium (Depakote Sprinkles) 125 mg DAILY PO 09/03/20 09:00 09/04/20 17:23 DC 09/04/20 10:52 Divalproex Sodium (Depakote Sprinkles) 250 mg DAILY PO 09/05/20 09:00 I have reviewed the current psychotropics carefully including drug interactions. Risk benefit ratio favors no change other than as noted in my dictated progress note. Diagnosis: Problems: (1) Anxiety disorder (2) Impulse control disorder (3) Lewy body dementia with behavioral disturbance (4) Dementia, vascular, with delusions (5) Dementia in Alzheimer's disease with delusions (6) Major neurocognitive disorder (7) Major depressive disorder with psychotic features CAMERON ROSAS MD Sep 04, 2020 21:34
[2020-09-05] MEDS: LEVOTHYROXINE 25 MCG TABLET. PO SCH (05:08)
[2020-09-05 06:08] VITALS: BP 134/78
[2020-09-05] MEDS: POLYETHYLENE GLYCOL 3350 17 GM PACKET. PO SCH (07:42)
[2020-09-05] MEDS: SENNOSIDES/DOCUSATE 8.6/50MG TABLET. PO SCH (07:43)
[2020-09-05] MEDS: RIVASTIGMINE 13.3MG PATCH. TD SCH (07:43)
[2020-09-05] MEDS: CHLORHEXIDINE 0.12% 15 ML MOUTHWASH. SWSP SCH ×2 (07:43→20:18)
[2020-09-05] MEDS: TAMSULOSIN 0.4 MG CAP.ER.24H. PO SCH (07:43)
[2020-09-05] MEDS: CARBIDOPA/LEVODOPA 10/100MG TABLET PO SCH ×4 (07:43→20:17)
[2020-09-05] MEDS: OXYBUTYNIN CHLORIDE 5 MG TABLET PO SCH ×2 (07:44→20:16)
[2020-09-05] MEDS: MEMANTINE 10 MG TABLET. PO SCH ×2 (07:44→15:58)
[2020-09-05] MEDS: APIXABAN 5 MG TABLET. PO SCH ×2 (07:44→20:17)
[2020-09-05] MEDS: ASCORBIC ACID 500 MG TABLET PO SCH (07:44)
[2020-09-05] MEDS: METOPROLOL SUCC 24HR ER 25 MG TAB.ER.24H. PO SCH ×2 (07:45→20:17)
[2020-09-05] MEDS: SERTRALINE 50 MG TABLET. PO SCH (07:45)
[2020-09-05] MEDS: BUMETANIDE 1 MG TABLET PO SCH (07:46)
[2020-09-05] MEDS: POTASSIUM CHLORIDE 20 MEQ TABLET.ER. PO SCH ×2 (07:46→20:18)
[2020-09-05] MEDS: DOCUSATE SODIUM 100 MG CAPSULE PO SCH (07:46)
[2020-09-05] MEDS: risperiDONE 0.5 MG TABLET. PO SCH ×3 (07:46→20:18)
[2020-09-05] MEDS: TIMOLOL 0.5% OPHTH SOLUTION 5ML BOTTLE. OU SCH ×2 (07:48→20:21)
[2020-09-05] MEDS: DIVALPROEX 125 MG CAP.SPRINK PO SCH (07:53)
--- NOTE | 2020-09-05 17:36 | TX PLAN ---
Interdisciplinary Tx Plan Admission Information Sep 01, 2020 at 14:55 Legal Status (on Admission): Voluntary DPOA/Guardian Name: Margy Stinson Contact Other Contact Name: [facility] Other Contact Verified Code Status: Full Code Allergies: Coded Allergies: No Known Drug Allergies (Unverified , 09/01/20) Diagnoses Primary Diagnosis: Lewy Body Dementia, Major Neurocognitive D/O with BD Reasons for Admission: Aggressive, Hallucinations, Confusion/Disoriented Problem in Patient's Words: He needs his medications adjusted. Additional Admission Comments: According to the intake, increased confusion, called 911 about missing kids, hallucinationg, labile behaviors, aggressive-pumping fist at peers. Problems Active Problems: Confusion Hallucination Inactive Problems: Medication Management Pt Strengths/Limitations Ability for [place]: Poor Cognitive Functioning/Ability: Fair Communication Skills/Ability: Fair Financial Resources: Good Insight/Judgement: Poor Intellectual Ability: Fair Physical Health: Poor Social Skills: Fair Stability in Family: Good Stability in School/Work: Poor Verbal Skills: Good Discharge Criteria Discharge Criteria: Adequate arrangements @DC, Improved behavior, Improved mood/thought Preliminary Discharge Plan Preliminary DC Plan: Current Living Arrange. Special Precautions Fall Risk: Low Initial D/C Plan Pt to return to [facility] Identified Discharge Needs: Continued psych services Currently Utilized Resources Currently Utilized Resources/P: Primary Care Physician Referrals Community Resources: Neurology follow-up Psychiatric services Identified Problems/Hx/Goals Objectives/Short-Term Goals Short Term Goals: Dec. Aggression, Dec. Hallucination/Delus, Dec. Outbursts, Promote Coping Skill Short Term Goals in Patient's: "I thought I was doing okay". Interventions/Frequency Staff Interventions/Frequency&: Psychiatrist to asses pt at least 3x per week for medication management. Social Work to assess pt at least 2x per week to identify barriers surrounding care and discharge planning. Nursing to complete 15 minute checks daily, assess behaviors and medication effects. 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 Pt is retired Education: Pt attended and received his Bachelors in Anthropology, Masters in Management and then attended school for respiratory therapy. Community Follow-up Primary Care Physician Updates to Memory Care facility Community Provider/Family Inpu: Pt was doing well for sometime. It was just evident that with his increase in hallucinations, that he needed an evaluation for a potential increase in his medications. Treatment Plan Explained Patient/Physician Support Coordinator had this treatment plan explained to him/her as indicated by the signature below and has been given the opportunity to ask questions and make suggestions: Date: Patient/Physician Support Coordinator Signature: Patient/Physician Support Coordinator Decline: No (Pt is very active in pt care.) SARA VIVAS Sep 05, 2020 17:36
[2020-09-05 17:55] VITALS: BP 127/76
[2020-09-05] MEDS: MELATONIN 3 MG TABLET PO SCH (20:16)
[2020-09-05] MEDS: ATORVASTATIN CALCIUM 20 MG TABLET PO SCH (20:16)
[2020-09-05] MEDS: DIVALPROEX ER 500 MG TAB.ER.24H PO SCH (20:17)
[2020-09-05] MEDS: ACETAMINOPHEN 500 MG TABLET PO SCH (20:18)
[2020-09-05] MEDS: GABAPENTIN 300 MG CAPSULE. PO SCH (20:21)
--- NOTE | 2020-09-05 20:58 | PDOC ---
Exam Note: Michael Note: Please also refer to the separate dictated note~for this date of service dictated separately.~Patient seen individually. Discussed the patient with Nursing staff reviewed the chart.~Reviewed interim history and current functioning. Reviewed vital signs,~Labs/ Radiology~and current medications noted below. Continue current treatment with the changes noted in the dictated addendum note Assessment: Vital Signs/I&O: Vital Signs Date Time Temp Pulse Resp B/P (MAP) Pulse Ox O2 Delivery O2 Flow Rate FiO2 09/05/20 20:17 63 127/76 09/05/20 17:55 97.1 18 97 09/05/20 06:08 Room Air I & O 09/04/20 09/04/20 09/05/20 15:00 23:00 07:00 Intake Total 460 ml 480 ml Balance 460 ml 480 ml Current Medications: Meds: Current Medications Medications (Trade) Dose Ordered Sig/Gloria Route PRN Reason Start Time Stop Time Status Last Admin Dose Admin Acetaminophen (Tylenol) 500 mg HS PO 09/01/20 21:00 09/05/20 20:18 Apixaban (Eliquis) 5 mg BID PO 09/01/20 21:00 09/05/20 20:17 Bumetanide (Bumex) 1 mg DAILY PO 09/02/20 09:00 09/05/20 07:46 Carbidopa/Levodopa (Sinemet 10/100) 0.5 tab [id number] PO 09/01/20 17:00 09/05/20 20:17 Diclofenac Sodium (Voltaren) 1 camilla PRN BID PRN TP MUSCLE PAIN 09/01/20 15:30 Divalproex Sodium (Depakote Sprinkles) 125 mg DAILY PO 09/02/20 09:00 09/02/20 09:00 DC 09/02/20 08:22 Divalproex Sodium (Depakote Er) 500 mg QHS PO 09/01/20 21:00 09/05/20 20:17 Docusate Sodium (Colace) 100 mg DAILY PO 09/02/20 09:00 09/05/20 07:46 Gabapentin (Neurontin) 300 mg HS PO 09/01/20 21:00 09/05/20 20:21 Ibuprofen (Motrin) 400 mg PRN Q8HRS PRN PO PAIN 09/01/20 15:30 UNV Levothyroxine Sodium (Synthroid) 25 mcg DAILYAC PO 09/02/20 07:30 09/01/20 19:50 DC Magnesium Hydroxide (Milk Of Magnesia) 2,400 mg PRN QHS PRN PO CONSTIPATION, 2ND CHOICE 09/01/20 15:30 09/04/20 05:12 Memantine (Namenda) 10 mg [id number] PO 09/01/20 16:30 09/05/20 15:58 Metoprolol Succinate (Toprol Xl) 12.5 mg BID PO 09/01/20 21:00 09/05/20 20:17 Olanzapine (ZyPREXA ZYDIS) 5 mg PRN Q12HR PRN PO ANXIETY / AGITATION 09/01/20 15:30 Polyethylene Glycol (miraLAX) 17 gm DAILY PO 09/02/20 09:00 09/05/20 07:42 Polyethylene Glycol (miraLAX) 17 gm PRN DAILY PRN PO CONSTIPATION, 1ST CHOICE 09/01/20 15:30 Potassium Chloride (Klor-Con) 20 meq BID PO 09/01/20 21:00 09/05/20 20:18 Risperidone (RisperDAL) 0.5 mg TID PO 09/01/20 21:00 09/05/20 20:18 Rivastigmine (Exelon 13.3mg) 1 patch DAILY TD 09/02/20 09:00 09/05/20 07:43 Senna/Docusate Sodium (Senna Plus) 1 tab DAILY PO 09/02/20 09:00 09/05/20 07:43 Sertraline HCl (Zoloft) 50 mg DAILY PO 09/02/20 09:00 09/02/20 16:48 DC 09/02/20 08:22 Tamsulosin HCl (Flomax) 0.4 mg DAILY PO 09/02/20 09:00 09/05/20 07:43 Ascorbic Acid (Vitamin C) 500 mg DAILY PO 09/02/20 09:00 09/05/20 07:44 Atorvastatin Calcium (Lipitor) 40 mg QHS PO 09/01/20 21:00 09/05/20 20:16 Non-Formulary Medication (Capsaicin/ Menthol (Salonpas Gel-Patch Hot)) 1 each HS TP 09/01/20 21:00 UNV Chlorhexidine Gluconate (Peridex) 15 ml BID SWSP 09/01/20 21:00 09/05/20 20:18 Multi-Ingred Cream/Lotion/Oil/ Oint (Hydrocerin) 1 camilla PRN BID PRN TP dry skin 09/01/20 16:45 Melatonin (Melatonin) 3 mg HS PO 09/01/20 21:00 09/05/20 20:16 Non-Formulary Medication (Menthol (Biofreeze)) 1 camilla PRN TID PRN TOP MUSCLE PAIN 09/01/20 15:30 UNV Cyclobenzaprine HCl (Flexeril) 10 mg PRN TID PRN PO low back pain 09/01/20 17:00 09/04/20 20:19 Oxybutynin Chloride (Ditropan) 5 mg BID PO 09/01/20 21:00 09/05/20 20:16 Timolol Maleate (Timoptic 0.5% Oph) 1 drop BID OU 09/01/20 21:00 09/05/20 20:21 Multi-Ingredient Ointment (Analgesic [place]) 1 camilla PRN QID PRN TP MUSCLE PAIN 09/01/20 16:15 Cancel Al Hydroxide/Mg Hydroxide (Mylanta Plus Xs) 15 ml PRN AFTMEALHC PRN PO DYSPEPSIA 09/01/20 16:15 Levothyroxine Sodium (Synthroid) 25 mcg DAILY06 PO 09/02/20 06:00 09/05/20 05:08 Divalproex Sodium (Depakote Er) 125 mg DAILY PO 09/02/20 09:00 Cancel Sertraline HCl (Zoloft) 75 mg DAILY PO 09/03/20 09:00 09/05/20 11:00 DC 09/05/20 07:45 Sertraline HCl (Zoloft) 100 mg DAILY PO 09/06/20 09:00 Divalproex Sodium (Depakote Sprinkles) 125 mg DAILY PO 09/03/20 09:00 09/04/20 17:23 DC 09/04/20 10:52 Divalproex Sodium (Depakote Sprinkles) 250 mg DAILY PO 09/05/20 09:00 09/05/20 07:53 Current Medications Medications (Trade) Dose Ordered Sig/Gloria Route PRN Reason Start Time Stop Time Status Last Admin Dose Admin Divalproex Sodium (Depakote Sprinkles) 250 mg DAILY PO 09/05/20 09:00 09/05/20 07:53 I have reviewed the current psychotropics carefully including drug interactions. Risk benefit ratio favors no change other than as noted in my dictated progress note. Diagnosis: Problems: (1) Anxiety disorder (2) Impulse control disorder (3) Lewy body dementia with behavioral disturbance (4) Dementia, vascular, with delusions (5) Dementia in Alzheimer's disease with delusions (6) Major neurocognitive disorder (7) Major depressive disorder with psychotic features CAMERON ROSAS MD Sep 05, 2020 20:58
[2020-09-06] MEDS: LEVOTHYROXINE 25 MCG TABLET. PO SCH (05:45)
[2020-09-06 06:27] VITALS: BP 124/73
[2020-09-06] MEDS: TAMSULOSIN 0.4 MG CAP.ER.24H. PO SCH (08:47)
[2020-09-06] MEDS: POLYETHYLENE GLYCOL 3350 17 GM PACKET. PO SCH (08:47)
[2020-09-06] MEDS: risperiDONE 0.5 MG TABLET. PO SCH ×3 (08:49→20:13)
[2020-09-06] MEDS: MEMANTINE 10 MG TABLET. PO SCH ×2 (08:49→16:42)
[2020-09-06] MEDS: CARBIDOPA/LEVODOPA 10/100MG TABLET PO SCH ×4 (08:49→20:15)
[2020-09-06] MEDS: TIMOLOL 0.5% OPHTH SOLUTION 5ML BOTTLE. OU SCH ×2 (08:49→20:13)
[2020-09-06] MEDS: SERTRALINE 100 MG TABLET. PO SCH (08:49)
[2020-09-06] MEDS: SENNOSIDES/DOCUSATE 8.6/50MG TABLET. PO SCH (08:49)
[2020-09-06] MEDS: DOCUSATE SODIUM 100 MG CAPSULE PO SCH (08:49)
[2020-09-06] MEDS: OXYBUTYNIN CHLORIDE 5 MG TABLET PO SCH ×2 (08:50→20:14)
[2020-09-06] MEDS: APIXABAN 5 MG TABLET. PO SCH ×2 (08:50→20:14)
[2020-09-06] MEDS: ASCORBIC ACID 500 MG TABLET PO SCH (08:50)
[2020-09-06] MEDS: DIVALPROEX 125 MG CAP.SPRINK PO SCH (08:50)
[2020-09-06] MEDS: POTASSIUM CHLORIDE 20 MEQ TABLET.ER. PO SCH ×2 (08:51→20:13)
[2020-09-06] MEDS: METOPROLOL SUCC 24HR ER 25 MG TAB.ER.24H. PO SCH ×2 (08:51→20:14)
[2020-09-06] MEDS: RIVASTIGMINE 13.3MG PATCH. TD SCH (08:51)
[2020-09-06] MEDS: BUMETANIDE 1 MG TABLET PO SCH (08:51)
[2020-09-06] MEDS: CHLORHEXIDINE 0.12% 15 ML MOUTHWASH. SWSP SCH ×2 (08:52→20:13)
--- NOTE | 2020-09-06 09:07 | PDOC ---
Exam Note: Michael Note: This note is a late entry for 09/04/2020 covers elements not covered in my initial note. Subjective: The patient was seen face to face in the evening of 09/04/2020 with Maris BRASHER. Discussed with nursing staff, reviewed the chart. He slept 6-3/4 hours previous night. Overall the patient gets quite confused, paranoid at times, and another times well oriented. This was consistent with Lewy body dementia. He has attended groups. Valproic acid level is 49 on Depakote Sprinkle 125 mg in the morning and Depakote ER 500 mg at night. Review of Systems: No CV, , pulmonary, eye, ENT system symptoms on review. Mental Status Exam: The patient is reasonably oriented. Speech is coherent, h as some latency. Abstraction is fair. Computation is impaired. Language function is intact. Mood and affect somewhat withdrawn. Laboratory Data: Reviewed. Impression: Major neurocognitive disorder Lewy body with delusion, depression, behavioral disturbance. Major depressive disorder with psychotic features. Anxiety disorder unspecified. Impulse control disorder unspecified. Plan: No change from initial note but we will increase the Depakote to 250 mg a.m. of the Sprinkle. Continue Depakote ER 500 mg h.s. Check CBC, CMP, valproic acid level in 3 days with a plan to reach therapeutic level. Rest unchanged for now. Assessment: Vital Signs/I&O: Vital Signs Date Time Temp Pulse Resp B/P (MAP) Pulse Ox O2 Delivery O2 Flow Rate FiO2 09/06/20 08:51 62 124/73 09/06/20 06:27 97.4 16 95 Room Air I & O 09/05/20 09/05/20 09/06/20 15:00 23:00 07:00 Intake Total 440 ml 600 ml 360 ml Balance 440 ml 600 ml 360 ml Current Medications: Meds: Current Medications Medications (Trade) Dose Ordered Sig/Gloria Route PRN Reason Start Time Stop Time Status Last Admin Dose Admin Acetaminophen (Tylenol) 500 mg HS PO 09/01/20 21:00 09/05/20 20:18 Apixaban (Eliquis) 5 mg BID PO 09/01/20 21:00 09/06/20 08:50 Bumetanide (Bumex) 1 mg DAILY PO 09/02/20 09:00 09/06/20 08:51 Carbidopa/Levodopa (Sinemet 10/100) 0.5 tab [id number] PO 09/01/20 17:00 09/06/20 08:49 Diclofenac Sodium (Voltaren) 1 camilla PRN BID PRN TP MUSCLE PAIN 09/01/20 15:30 Divalproex Sodium (Depakote Sprinkles) 125 mg DAILY PO 09/02/20 09:00 09/02/20 09:00 DC 09/02/20 08:22 Divalproex Sodium (Depakote Er) 500 mg QHS PO 09/01/20 21:00 09/05/20 20:17 Docusate Sodium (Colace) 100 mg DAILY PO 09/02/20 09:00 09/06/20 08:49 Gabapentin (Neurontin) 300 mg HS PO 09/01/20 21:00 09/05/20 20:21 Ibuprofen (Motrin) 400 mg PRN Q8HRS PRN PO PAIN 09/01/20 15:30 UNV Levothyroxine Sodium (Synthroid) 25 mcg DAILYAC PO 09/02/20 07:30 09/01/20 19:50 DC Magnesium Hydroxide (Milk Of Magnesia) 2,400 mg PRN QHS PRN PO CONSTIPATION, 2ND CHOICE 09/01/20 15:30 09/04/20 05:12 Memantine (Namenda) 10 mg [id number] PO 09/01/20 16:30 09/06/20 08:49 Metoprolol Succinate (Toprol Xl) 12.5 mg BID PO 09/01/20 21:00 09/06/20 08:51 Olanzapine (ZyPREXA ZYDIS) 5 mg PRN Q12HR PRN PO ANXIETY / AGITATION 09/01/20 15:30 Polyethylene Glycol (miraLAX) 17 gm DAILY PO 09/02/20 09:00 09/06/20 08:47 Polyethylene Glycol (miraLAX) 17 gm PRN DAILY PRN PO CONSTIPATION, 1ST CHOICE 09/01/20 15:30 Potassium Chloride (Klor-Con) 20 meq BID PO 09/01/20 21:00 09/06/20 08:51 Risperidone (RisperDAL) 0.5 mg TID PO 09/01/20 21:00 09/06/20 08:49 Rivastigmine (Exelon 13.3mg) 1 patch DAILY TD 09/02/20 09:00 09/06/20 08:51 Senna/Docusate Sodium (Senna Plus) 1 tab DAILY PO 09/02/20 09:00 09/06/20 08:49 Sertraline HCl (Zoloft) 50 mg DAILY PO 09/02/20 09:00 09/02/20 16:48 DC 09/02/20 08:22 Tamsulosin HCl (Flomax) 0.4 mg DAILY PO 09/02/20 09:00 09/06/20 08:47 Ascorbic Acid (Vitamin C) 500 mg DAILY PO 09/02/20 09:00 09/06/20 08:50 Atorvastatin Calcium (Lipitor) 40 mg QHS PO 09/01/20 21:00 09/05/20 20:16 Non-Formulary Medication (Capsaicin/ Menthol (Salonpas Gel-Patch Hot)) 1 each HS TP 09/01/20 21:00 UNV Chlorhexidine Gluconate (Peridex) 15 ml BID SWSP 09/01/20 21:00 09/06/20 08:52 Multi-Ingred Cream/Lotion/Oil/ Oint (Hydrocerin) 1 camilla PRN BID PRN TP dry skin 09/01/20 16:45 Melatonin (Melatonin) 3 mg HS PO 09/01/20 21:00 09/05/20 20:16 Non-Formulary Medication (Menthol (Biofreeze)) 1 camilla PRN TID PRN TOP MUSCLE PAIN 09/01/20 15:30 UNV Cyclobenzaprine HCl (Flexeril) 10 mg PRN TID PRN PO low back pain 09/01/20 17:00 09/04/20 20:19 Oxybutynin Chloride (Ditropan) 5 mg BID PO 09/01/20 21:00 09/06/20 08:50 Timolol Maleate (Timoptic 0.5% Oph) 1 drop BID OU 09/01/20 21:00 09/06/20 08:49 Multi-Ingredient Ointment (Analgesic [place]) 1 camilla PRN QID PRN TP MUSCLE PAIN 09/01/20 16:15 Cancel Al Hydroxide/Mg Hydroxide (Mylanta Plus Xs) 15 ml PRN AFTMEALHC PRN PO DYSPEPSIA 09/01/20 16:15 Levothyroxine Sodium (Synthroid) 25 mcg DAILY06 PO 09/02/20 06:00 09/06/20 05:45 Divalproex Sodium (Depakote Er) 125 mg DAILY PO 09/02/20 09:00 Cancel Sertraline HCl (Zoloft) 75 mg DAILY PO 09/03/20 09:00 09/05/20 11:00 DC 09/05/20 07:45 Sertraline HCl (Zoloft) 100 mg DAILY PO 09/06/20 09:00 09/06/20 08:49 Divalproex Sodium (Depakote Sprinkles) 125 mg DAILY PO 09/03/20 09:00 09/04/20 17:23 DC 09/04/20 10:52 Divalproex Sodium (Depakote Sprinkles) 250 mg DAILY PO 09/05/20 09:00 09/06/20 08:50 Current Medications Medications (Trade) Dose Ordered Sig/Gloria Route PRN Reason Start Time Stop Time Status Last Admin Dose Admin Sertraline HCl (Zoloft) 100 mg DAILY PO 09/06/20 09:00 09/06/20 08:49 I have reviewed the current psychotropics carefully including drug interactions. Risk benefit ratio favors no change other than as noted in my dictated progress note. Diagnosis: Problems: (1) Anxiety disorder (2) Impulse control disorder (3) Lewy body dementia with behavioral disturbance (4) Dementia, vascular, with delusions (5) Dementia in Alzheimer's disease with delusions (6) Major neurocognitive disorder (7) Major depressive disorder with psychotic features CAMERON ROSAS MD Sep 06, 2020 09:07
--- NOTE | 2020-09-06 09:22 | PDOC ---
Exam Note: Michael Note: This note is a late entry for 09/05/2020 covers elements not covered in my initial note. Subjective: The patient was seen face to face in the evening of 09/05/2020 with Estelita BRASHER. Discussed with nursing staff, reviewed the chart. He slept 7 hours previous night. The patient has been fairly quiet, got a little agitated with lab draws but otherwise well oriented. At certain time quite a bit more confused, at other times consistent with his diagnosis of Lewy body dementia. Review of Systems: No CV, , pulmonary, eye, ENT system symptoms on review. Mental Status Exam: The patient is reasonably oriented. Speech is coherent, has some latency. Abstraction is fair. Computation is impaired. Language function is intact. Mood and affect somewhat withdrawn. Laboratory Data: Reviewed. Impression: Major neurocognitive disorder Lewy body with delusion, depression, behavioral disturbance. Major depressive disorder with psychotic features. Anxiety disorder unspecified. Impulse control disorder unspecified. Plan: We will continue his current psychotropics. Follow labs level on the Depakote to be checked on 09/08. Adjust thereafter. Assessment: Vital Signs/I&O: Vital Signs Date Time Temp Pulse Resp B/P (MAP) Pulse Ox O2 Delivery O2 Flow Rate FiO2 09/06/20 08:51 62 124/73 09/06/20 06:27 97.4 16 95 Room Air I & O 09/05/20 09/05/20 09/06/20 15:00 23:00 07:00 Intake Total 440 ml 600 ml 360 ml Balance 440 ml 600 ml 360 ml Current Medications: Meds: Current Medications Medications (Trade) Dose Ordered Sig/Gloria Route PRN Reason Start Time Stop Time Status Last Admin Dose Admin Acetaminophen (Tylenol) 500 mg HS PO 09/01/20 21:00 09/05/20 20:18 Apixaban (Eliquis) 5 mg BID PO 09/01/20 21:00 09/06/20 08:50 Bumetanide (Bumex) 1 mg DAILY PO 09/02/20 09:00 09/06/20 08:51 Carbidopa/Levodopa (Sinemet 10/100) 0.5 tab [id number] PO 09/01/20 17:00 09/06/20 08:49 Diclofenac Sodium (Voltaren) 1 camilla PRN BID PRN TP MUSCLE PAIN 09/01/20 15:30 Divalproex Sodium (Depakote Sprinkles) 125 mg DAILY PO 09/02/20 09:00 09/02/20 09:00 DC 09/02/20 08:22 Divalproex Sodium (Depakote Er) 500 mg QHS PO 09/01/20 21:00 09/05/20 20:17 Docusate Sodium (Colace) 100 mg DAILY PO 09/02/20 09:00 09/06/20 08:49 Gabapentin (Neurontin) 300 mg HS PO 09/01/20 21:00 09/05/20 20:21 Ibuprofen (Motrin) 400 mg PRN Q8HRS PRN PO PAIN 09/01/20 15:30 UNV Levothyroxine Sodium (Synthroid) 25 mcg DAILYAC PO 09/02/20 07:30 09/01/20 19:50 DC Magnesium Hydroxide (Milk Of Magnesia) 2,400 mg PRN QHS PRN PO CONSTIPATION, 2ND CHOICE 09/01/20 15:30 09/04/20 05:12 Memantine (Namenda) 10 mg [id number] PO 09/01/20 16:30 09/06/20 08:49 Metoprolol Succinate (Toprol Xl) 12.5 mg BID PO 09/01/20 21:00 09/06/20 08:51 Olanzapine (ZyPREXA ZYDIS) 5 mg PRN Q12HR PRN PO ANXIETY / AGITATION 09/01/20 15:30 Polyethylene Glycol (miraLAX) 17 gm DAILY PO 09/02/20 09:00 09/06/20 08:47 Polyethylene Glycol (miraLAX) 17 gm PRN DAILY PRN PO CONSTIPATION, 1ST CHOICE 09/01/20 15:30 Potassium Chloride (Klor-Con) 20 meq BID PO 09/01/20 21:00 09/06/20 08:51 Risperidone (RisperDAL) 0.5 mg TID PO 09/01/20 21:00 09/06/20 08:49 Rivastigmine (Exelon 13.3mg) 1 patch DAILY TD 09/02/20 09:00 09/06/20 08:51 Senna/Docusate Sodium (Senna Plus) 1 tab DAILY PO 09/02/20 09:00 09/06/20 08:49 Sertraline HCl (Zoloft) 50 mg DAILY PO 09/02/20 09:00 09/02/20 16:48 DC 09/02/20 08:22 Tamsulosin HCl (Flomax) 0.4 mg DAILY PO 09/02/20 09:00 09/06/20 08:47 Ascorbic Acid (Vitamin C) 500 mg DAILY PO 09/02/20 09:00 09/06/20 08:50 Atorvastatin Calcium (Lipitor) 40 mg QHS PO 09/01/20 21:00 09/05/20 20:16 Non-Formulary Medication (Capsaicin/ Menthol (Salonpas Gel-Patch Hot)) 1 each HS TP 09/01/20 21:00 UNV Chlorhexidine Gluconate (Peridex) 15 ml BID SWSP 09/01/20 21:00 09/06/20 08:52 Multi-Ingred Cream/Lotion/Oil/ Oint (Hydrocerin) 1 camilla PRN BID PRN TP dry skin 09/01/20 16:45 Melatonin (Melatonin) 3 mg HS PO 09/01/20 21:00 09/05/20 20:16 Non-Formulary Medication (Menthol (Biofreeze)) 1 camilla PRN TID PRN TOP MUSCLE PAIN 09/01/20 15:30 UNV Cyclobenzaprine HCl (Flexeril) 10 mg PRN TID PRN PO low back pain 09/01/20 17:00 09/04/20 20:19 Oxybutynin Chloride (Ditropan) 5 mg BID PO 09/01/20 21:00 09/06/20 08:50 Timolol Maleate (Timoptic 0.5% [facility]) 1 drop BID OU 09/01/20 21:00 09/06/20 08:49 Multi-Ingredient Ointment (Analgesic [place]) 1 camilla PRN QID PRN TP MUSCLE PAIN 09/01/20 16:15 Cancel Al Hydroxide/Mg Hydroxide (Mylanta Plus Xs) 15 ml PRN AFTMEALHC PRN PO DYSPEPSIA 09/01/20 16:15 Levothyroxine Sodium (Synthroid) 25 mcg DAILY06 PO 09/02/20 06:00 09/06/20 05:45 Divalproex Sodium (Depakote Er) 125 mg DAILY PO 09/02/20 09:00 Cancel Sertraline HCl (Zoloft) 75 mg DAILY PO 09/03/20 09:00 09/05/20 11:00 DC 09/05/20 07:45 Sertraline HCl (Zoloft) 100 mg DAILY PO 09/06/20 09:00 09/06/20 08:49 Divalproex Sodium (Depakote Sprinkles) 125 mg DAILY PO 09/03/20 09:00 09/04/20 17:23 DC 09/04/20 10:52 Divalproex Sodium (Depakote Sprinkles) 250 mg DAILY PO 09/05/20 09:00 09/06/20 08:50 Current Medications Medications (Trade) Dose Ordered Sig/Gloria Route PRN Reason Start Time Stop Time Status Last Admin Dose Admin Sertraline HCl (Zoloft) 100 mg DAILY PO 09/06/20 09:00 09/06/20 08:49 I have reviewed the current psychotropics carefully including drug interactions. Risk benefit ratio favors no change other than as noted in my dictated progress note. Diagnosis: Problems: (1) Anxiety disorder (2) Impulse control disorder (3) Lewy body dementia with behavioral disturbance (4) Dementia, vascular, with delusions (5) Dementia in Alzheimer's disease with delusions (6) Major neurocognitive disorder (7) Major depressive disorder with psychotic features CAMERON ROSAS MD Sep 06, 2020 09:22
[2020-09-06 15:44] VITALS: BP 130/65
[2020-09-06] MEDS: ACETAMINOPHEN 500 MG TABLET PO SCH (20:13)
[2020-09-06] MEDS: MELATONIN 3 MG TABLET PO SCH (20:14)
[2020-09-06] MEDS: DIVALPROEX ER 500 MG TAB.ER.24H PO SCH (20:14)
[2020-09-06] MEDS: GABAPENTIN 300 MG CAPSULE. PO SCH (20:14)
[2020-09-06] MEDS: ATORVASTATIN CALCIUM 20 MG TABLET PO SCH (20:15)
--- NOTE | 2020-09-06 21:14 | PDOC ---
Exam Note: Michael Note: Please also refer to the separate dictated note~for this date of service dictated separately.~Patient seen individually. Discussed the patient with Nursing staff reviewed the chart.~Reviewed interim history and current functioning. Reviewed vital signs,~Labs/ Radiology~and current medications noted below. Continue current treatment with the changes noted in the dictated addendum note Assessment: Vital Signs/I&O: Vital Signs Date Time Temp Pulse Resp B/P (MAP) Pulse Ox O2 Delivery O2 Flow Rate FiO2 09/06/20 20:14 69 130/65 09/06/20 15:44 98.1 20 95 09/06/20 06:27 Room Air I & O 09/05/20 09/05/20 09/06/20 15:00 23:00 07:00 Intake Total 440 ml 600 ml 360 ml Balance 440 ml 600 ml 360 ml Current Medications: Meds: Current Medications Medications (Trade) Dose Ordered Sig/Gloria Route PRN Reason Start Time Stop Time Status Last Admin Dose Admin Acetaminophen (Tylenol) 500 mg HS PO 09/01/20 21:00 09/06/20 20:13 Apixaban (Eliquis) 5 mg BID PO 09/01/20 21:00 09/06/20 20:14 Bumetanide (Bumex) 1 mg DAILY PO 09/02/20 09:00 09/06/20 08:51 Carbidopa/Levodopa (Sinemet 10/100) 0.5 tab [id number] PO 09/01/20 17:00 09/06/20 20:15 Diclofenac Sodium (Voltaren) 1 camilla PRN BID PRN TP MUSCLE PAIN 09/01/20 15:30 Divalproex Sodium (Depakote Sprinkles) 125 mg DAILY PO 09/02/20 09:00 09/02/20 09:00 DC 09/02/20 08:22 Divalproex Sodium (Depakote Er) 500 mg QHS PO 09/01/20 21:00 09/06/20 20:14 Docusate Sodium (Colace) 100 mg DAILY PO 09/02/20 09:00 09/06/20 08:49 Gabapentin (Neurontin) 300 mg HS PO 09/01/20 21:00 09/06/20 20:14 Ibuprofen (Motrin) 400 mg PRN Q8HRS PRN PO PAIN 09/01/20 15:30 UNV Levothyroxine Sodium (Synthroid) 25 mcg DAILYAC PO 09/02/20 07:30 09/01/20 19:50 DC Magnesium Hydroxide (Milk Of Magnesia) 2,400 mg PRN QHS PRN PO CONSTIPATION, 2ND CHOICE 09/01/20 15:30 09/04/20 05:12 Memantine (Namenda) 10 mg [id number] PO 09/01/20 16:30 09/06/20 16:42 Metoprolol Succinate (Toprol Xl) 12.5 mg BID PO 09/01/20 21:00 09/06/20 20:14 Olanzapine (ZyPREXA ZYDIS) 5 mg PRN Q12HR PRN PO ANXIETY / AGITATION 09/01/20 15:30 Polyethylene Glycol (miraLAX) 17 gm DAILY PO 09/02/20 09:00 09/06/20 08:47 Polyethylene Glycol (miraLAX) 17 gm PRN DAILY PRN PO CONSTIPATION, 1ST CHOICE 09/01/20 15:30 Potassium Chloride (Klor-Con) 20 meq BID PO 09/01/20 21:00 09/06/20 20:13 Risperidone (RisperDAL) 0.5 mg TID PO 09/01/20 21:00 09/06/20 20:13 Rivastigmine (Exelon 13.3mg) 1 patch DAILY TD 09/02/20 09:00 09/06/20 08:51 Senna/Docusate Sodium (Senna Plus) 1 tab DAILY PO 09/02/20 09:00 09/06/20 08:49 Sertraline HCl (Zoloft) 50 mg DAILY PO 09/02/20 09:00 09/02/20 16:48 DC 09/02/20 08:22 Tamsulosin HCl (Flomax) 0.4 mg DAILY PO 09/02/20 09:00 09/06/20 08:47 Ascorbic Acid (Vitamin C) 500 mg DAILY PO 09/02/20 09:00 09/06/20 08:50 Atorvastatin Calcium (Lipitor) 40 mg QHS PO 09/01/20 21:00 09/06/20 20:15 Non-Formulary Medication (Capsaicin/ Menthol (Salonpas Gel-Patch Hot)) 1 each HS TP 09/01/20 21:00 UNV Chlorhexidine Gluconate (Peridex) 15 ml BID SWSP 09/01/20 21:00 09/06/20 20:13 Multi-Ingred Cream/Lotion/Oil/ Oint (Hydrocerin) 1 camilla PRN BID PRN TP dry skin 09/01/20 16:45 Melatonin (Melatonin) 3 mg HS PO 09/01/20 21:00 09/06/20 20:14 Non-Formulary Medication (Menthol (Biofreeze)) 1 camilla PRN TID PRN TOP MUSCLE PAIN 09/01/20 15:30 UNV Cyclobenzaprine HCl (Flexeril) 10 mg PRN TID PRN PO low back pain 09/01/20 17:00 09/04/20 20:19 Oxybutynin Chloride (Ditropan) 5 mg BID PO 09/01/20 21:00 09/06/20 20:14 Timolol Maleate (Timoptic 0.5% [facility]) 1 drop BID OU 09/01/20 21:00 09/06/20 20:13 Multi-Ingredient Ointment (Analgesic [place]) 1 camilla PRN QID PRN TP MUSCLE PAIN 09/01/20 16:15 Cancel Al Hydroxide/Mg Hydroxide (Mylanta Plus Xs) 15 ml PRN AFTMEALHC PRN PO DYSPEPSIA 09/01/20 16:15 Levothyroxine Sodium (Synthroid) 25 mcg DAILY06 PO 09/02/20 06:00 09/06/20 05:45 Divalproex Sodium (Depakote Er) 125 mg DAILY PO 09/02/20 09:00 Cancel Sertraline HCl (Zoloft) 75 mg DAILY PO 09/03/20 09:00 09/05/20 11:00 DC 09/05/20 07:45 Sertraline HCl (Zoloft) 100 mg DAILY PO 09/06/20 09:00 09/06/20 08:49 Divalproex Sodium (Depakote Sprinkles) 125 mg DAILY PO 09/03/20 09:00 09/04/20 17:23 DC 09/04/20 10:52 Divalproex Sodium (Depakote Sprinkles) 250 mg DAILY PO 09/05/20 09:00 09/06/20 08:50 Current Medications Medications (Trade) Dose Ordered Sig/Gloria Route PRN Reason Start Time Stop Time Status Last Admin Dose Admin Sertraline HCl (Zoloft) 100 mg DAILY PO 09/06/20 09:00 09/06/20 08:49 I have reviewed the current psychotropics carefully including drug interactions. Risk benefit ratio favors no change other than as noted in my dictated progress note. Diagnosis: Problems: (1) Parkinson's disease (2) Anxiety disorder (3) Impulse control disorder (4) Lewy body dementia with behavioral disturbance (5) Dementia, vascular, with delusions (6) Dementia in Alzheimer's disease with delusions (7) Major neurocognitive disorder (8) Major depressive disorder with psychotic features CAMERON ROSAS MD Sep 06, 2020 21:14
[2020-09-07] MEDS: LEVOTHYROXINE 25 MCG TABLET. PO SCH (05:18)
[2020-09-07 06:21] VITALS: BP 154/84
--- NOTE | 2020-09-07 07:49 | PDOC ---
Exam Note: Michael Note: This note is a late entry for 09/06/2020 covers elements not covered in my initial note. Subjective: The patient was seen face to face in the evening of 09/06/2020 with Heather BRASHER. Discussed with nursing staff, reviewed the chart. He slept 7 hours previous night. The patient is alert and oriented. Subjectively states he had a brilliant day. No hallucinations noted. He does get more anxious, restless, confused in the evening, but generally better. Review of Systems: No CV, , pulmonary, eye system symptoms on review. Mental Status Exam: The patient is reasonably oriented. Speech is coherent, has some latency. Abstraction is fair. Computation is impaired. Language function is intact. Attention span is short. Mood and affect somewhat withdrawn at times, somewhat depressed but he minimizes this. Laboratory Data: Reviewed. Impression: Major depressive disorder rule out psychotic features. Lewy body dementia early with delusion, depression. Anxiety disorder unspecified. Impulse control disorder unspecified. Plan: We will continue his current psychotropics. Check labs and valproic acid level on 09/08. Adjust to reach therapeutic level. Maintain Risperdal, Exelon patch, Namenda. Zoloft is increased to 100 mg a day. Adjust further as clinically indicated. Assessment: Vital Signs/I&O: Vital Signs Date Time Temp Pulse Resp B/P (MAP) Pulse Ox O2 Delivery O2 Flow Rate FiO2 09/07/20 06:21 97.3 60 16 154/84 (107) 94 Room Air I & O 09/06/20 09/06/20 09/07/20 15:00 23:00 07:00 Intake Total 600 ml 240 ml Balance 600 ml 240 ml Current Medications: Meds: Current Medications Medications (Trade) Dose Ordered Sig/Gloria Route PRN Reason Start Time Stop Time Status Last Admin Dose Admin Acetaminophen (Tylenol) 500 mg HS PO 09/01/20 21:00 09/06/20 20:13 Apixaban (Eliquis) 5 mg BID PO 09/01/20 21:00 09/06/20 20:14 Bumetanide (Bumex) 1 mg DAILY PO 09/02/20 09:00 09/06/20 08:51 Carbidopa/Levodopa (Sinemet 10/100) 0.5 tab [id number] PO 09/01/20 17:00 09/06/20 20:15 Diclofenac Sodium (Voltaren) 1 camilla PRN BID PRN TP MUSCLE PAIN 09/01/20 15:30 Divalproex Sodium (Depakote Sprinkles) 125 mg DAILY PO 09/02/20 09:00 09/02/20 09:00 DC 09/02/20 08:22 Divalproex Sodium (Depakote Er) 500 mg QHS PO 09/01/20 21:00 09/06/20 20:14 Docusate Sodium (Colace) 100 mg DAILY PO 09/02/20 09:00 09/06/20 08:49 Gabapentin (Neurontin) 300 mg HS PO 09/01/20 21:00 09/06/20 20:14 Ibuprofen (Motrin) 400 mg PRN Q8HRS PRN PO PAIN 09/01/20 15:30 UNV Levothyroxine Sodium (Synthroid) 25 mcg DAILYAC PO 09/02/20 07:30 09/01/20 19:50 DC Magnesium Hydroxide (Milk Of Magnesia) 2,400 mg PRN QHS PRN PO CONSTIPATION, 2ND CHOICE 09/01/20 15:30 09/04/20 05:12 Memantine (Namenda) 10 mg [id number] PO 09/01/20 16:30 09/06/20 16:42 Metoprolol Succinate (Toprol Xl) 12.5 mg BID PO 09/01/20 21:00 09/06/20 20:14 Olanzapine (ZyPREXA ZYDIS) 5 mg PRN Q12HR PRN PO ANXIETY / AGITATION 09/01/20 15:30 Polyethylene Glycol (miraLAX) 17 gm DAILY PO 09/02/20 09:00 09/06/20 08:47 Polyethylene Glycol (miraLAX) 17 gm PRN DAILY PRN PO CONSTIPATION, 1ST CHOICE 09/01/20 15:30 Potassium Chloride (Klor-Con) 20 meq BID PO 09/01/20 21:00 09/06/20 20:13 Risperidone (RisperDAL) 0.5 mg TID PO 09/01/20 21:00 09/06/20 20:13 Rivastigmine (Exelon 13.3mg) 1 patch DAILY TD 09/02/20 09:00 09/06/20 08:51 Senna/Docusate Sodium (Senna Plus) 1 tab DAILY PO 09/02/20 09:00 09/06/20 08:49 Sertraline HCl (Zoloft) 50 mg DAILY PO 09/02/20 09:00 09/02/20 16:48 DC 09/02/20 08:22 Tamsulosin HCl (Flomax) 0.4 mg DAILY PO 09/02/20 09:00 09/06/20 08:47 Ascorbic Acid (Vitamin C) 500 mg DAILY PO 09/02/20 09:00 09/06/20 08:50 Atorvastatin Calcium (Lipitor) 40 mg QHS PO 09/01/20 21:00 09/06/20 20:15 Non-Formulary Medication (Capsaicin/ Menthol (Salonpas Gel-Patch Hot)) 1 each HS TP 09/01/20 21:00 UNV Chlorhexidine Gluconate (Peridex) 15 ml BID SWSP 09/01/20 21:00 09/06/20 20:13 Multi-Ingred Cream/Lotion/Oil/ Oint (Hydrocerin) 1 camilla PRN BID PRN TP dry skin 09/01/20 16:45 Melatonin (Melatonin) 3 mg HS PO 09/01/20 21:00 09/06/20 20:14 Non-Formulary Medication (Menthol (Biofreeze)) 1 camilla PRN TID PRN TOP MUSCLE PAIN 09/01/20 15:30 UNV Cyclobenzaprine HCl (Flexeril) 10 mg PRN TID PRN PO low back pain 09/01/20 17:00 09/04/20 20:19 Oxybutynin Chloride (Ditropan) 5 mg BID PO 09/01/20 21:00 09/06/20 20:14 Timolol Maleate (Timoptic 0.5% Ophth) 1 drop BID OU 09/01/20 21:00 09/06/20 20:13 Multi-Ingredient Ointment (Analgesic [place]) 1 camilla PRN QID PRN TP MUSCLE PAIN 09/01/20 16:15 Cancel Al Hydroxide/Mg Hydroxide (Mylanta Plus Xs) 15 ml PRN AFTMEALHC PRN PO DYSPEPSIA 09/01/20 16:15 Levothyroxine Sodium (Synthroid) 25 mcg DAILY06 PO 09/02/20 06:00 09/07/20 05:18 Divalproex Sodium (Depakote Er) 125 mg DAILY PO 09/02/20 09:00 Cancel Sertraline HCl (Zoloft) 75 mg DAILY PO 09/03/20 09:00 09/05/20 11:00 DC 09/05/20 07:45 Sertraline HCl (Zoloft) 100 mg DAILY PO 09/06/20 09:00 09/06/20 08:49 Divalproex Sodium (Depakote Sprinkles) 125 mg DAILY PO 09/03/20 09:00 09/04/20 17:23 DC 09/04/20 10:52 Divalproex Sodium (Depakote Sprinkles) 250 mg DAILY PO 09/05/20 09:00 09/06/20 08:50 Current Medications Medications (Trade) Dose Ordered Sig/Gloria Route PRN Reason Start Time Stop Time Status Last Admin Dose Admin Sertraline HCl (Zoloft) 100 mg DAILY PO 09/06/20 09:00 09/06/20 08:49 I have reviewed the current psychotropics carefully including drug interactions. Risk benefit ratio favors no change other than as noted in my dictated progress note. Diagnosis: Problems: (1) Anxiety disorder (2) Impulse control disorder (3) Lewy body dementia with behavioral disturbance (4) Dementia, vascular, with delusions (5) Dementia in Alzheimer's disease with delusions (6) Major depressive disorder with psychotic features CAMERON ROSAS MD Sep 07, 2020 07:49
[2020-09-07] MEDS: DIVALPROEX 125 MG CAP.SPRINK PO SCH (08:41)
[2020-09-07] MEDS: CHLORHEXIDINE 0.12% 15 ML MOUTHWASH. SWSP SCH ×2 (08:41→19:44)
[2020-09-07] MEDS: POLYETHYLENE GLYCOL 3350 17 GM PACKET. PO SCH (08:41)
[2020-09-07] MEDS: RIVASTIGMINE 13.3MG PATCH. TD SCH (08:41)
[2020-09-07] MEDS: MEMANTINE 10 MG TABLET. PO SCH ×2 (08:42→16:00)
[2020-09-07] MEDS: SERTRALINE 100 MG TABLET. PO SCH (08:42)
[2020-09-07] MEDS: APIXABAN 5 MG TABLET. PO SCH ×2 (08:42→19:45)
[2020-09-07] MEDS: TAMSULOSIN 0.4 MG CAP.ER.24H. PO SCH (08:42)
[2020-09-07] MEDS: ASCORBIC ACID 500 MG TABLET PO SCH (08:42)
[2020-09-07] MEDS: CARBIDOPA/LEVODOPA 10/100MG TABLET PO SCH ×4 (08:42→19:45)
[2020-09-07] MEDS: POTASSIUM CHLORIDE 20 MEQ TABLET.ER. PO SCH ×2 (08:42→19:45)
[2020-09-07] MEDS: SENNOSIDES/DOCUSATE 8.6/50MG TABLET. PO SCH (08:42)
[2020-09-07] MEDS: DOCUSATE SODIUM 100 MG CAPSULE PO SCH (08:42)
[2020-09-07] MEDS: OXYBUTYNIN CHLORIDE 5 MG TABLET PO SCH ×2 (08:42→19:46)
[2020-09-07] MEDS: risperiDONE 0.5 MG TABLET. PO SCH ×3 (08:42→19:44)
[2020-09-07] MEDS: BUMETANIDE 1 MG TABLET PO SCH (08:43)
[2020-09-07] MEDS: TIMOLOL 0.5% OPHTH SOLUTION 5ML BOTTLE. OU SCH ×2 (08:43→19:44)
[2020-09-07] MEDS: METOPROLOL SUCC 24HR ER 25 MG TAB.ER.24H. PO SCH ×2 (08:43→19:46)
[2020-09-07 16:24] VITALS: BP 145/81
[2020-09-07] MEDS: DIVALPROEX ER 500 MG TAB.ER.24H PO SCH (19:44)
[2020-09-07] MEDS: ATORVASTATIN CALCIUM 20 MG TABLET PO SCH (19:45)
[2020-09-07] MEDS: GABAPENTIN 300 MG CAPSULE. PO SCH (19:46)
[2020-09-07] MEDS: ACETAMINOPHEN 500 MG TABLET PO SCH (19:46)
[2020-09-07] MEDS: MELATONIN 3 MG TABLET PO SCH (19:46)
[2020-09-07] MEDS: CYCLOBENZAPRINE 10 MG TABLET. PO PRN (20:27)
--- NOTE | 2020-09-07 21:12 | PDOC ---
Exam Note: Michael Note: Please also refer to the separate dictated note~for this date of service dictated separately.~Patient seen individually. Discussed the patient with Nursing staff reviewed the chart.~Reviewed interim history and current functioning. Reviewed vital signs,~Labs/ Radiology~and current medications noted below. Continue current treatment with the changes noted in the dictated addendum note Assessment: Vital Signs/I&O: Vital Signs Date Time Temp Pulse Resp B/P (MAP) Pulse Ox O2 Delivery O2 Flow Rate FiO2 09/07/20 19:46 64 145/81 09/07/20 16:24 97.2 20 97 Room Air I & O 09/06/20 09/06/20 09/07/20 15:00 23:00 07:00 Intake Total 600 ml 240 ml Balance 600 ml 240 ml Current Medications: Meds: Current Medications Medications (Trade) Dose Ordered Sig/Gloria Route PRN Reason Start Time Stop Time Status Last Admin Dose Admin Acetaminophen (Tylenol) 500 mg HS PO 09/01/20 21:00 09/07/20 19:46 Apixaban (Eliquis) 5 mg BID PO 09/01/20 21:00 09/07/20 19:45 Bumetanide (Bumex) 1 mg DAILY PO 09/02/20 09:00 09/07/20 08:43 Carbidopa/Levodopa (Sinemet 10/100) 0.5 tab [id number] PO 09/01/20 17:00 09/07/20 19:45 Diclofenac Sodium (Voltaren) 1 camilla PRN BID PRN TP MUSCLE PAIN 09/01/20 15:30 Divalproex Sodium (Depakote Sprinkles) 125 mg DAILY PO 09/02/20 09:00 09/02/20 09:00 DC 09/02/20 08:22 Divalproex Sodium (Depakote Er) 500 mg QHS PO 09/01/20 21:00 09/07/20 19:44 Docusate Sodium (Colace) 100 mg DAILY PO 09/02/20 09:00 09/07/20 08:42 Gabapentin (Neurontin) 300 mg HS PO 09/01/20 21:00 09/07/20 19:46 Ibuprofen (Motrin) 400 mg PRN Q8HRS PRN PO PAIN 09/01/20 15:30 UNV Levothyroxine Sodium (Synthroid) 25 mcg DAILYAC PO 09/02/20 07:30 09/01/20 19:50 DC Magnesium Hydroxide (Milk Of Magnesia) 2,400 mg PRN QHS PRN PO CONSTIPATION, 2ND CHOICE 09/01/20 15:30 09/04/20 05:12 Memantine (Namenda) 10 mg [id number] PO 09/01/20 16:30 09/07/20 16:00 Metoprolol Succinate (Toprol Xl) 12.5 mg BID PO 09/01/20 21:00 09/07/20 19:46 Olanzapine (ZyPREXA ZYDIS) 5 mg PRN Q12HR PRN PO ANXIETY / AGITATION 09/01/20 15:30 Polyethylene Glycol (miraLAX) 17 gm DAILY PO 09/02/20 09:00 09/07/20 08:41 Polyethylene Glycol (miraLAX) 17 gm PRN DAILY PRN PO CONSTIPATION, 1ST CHOICE 09/01/20 15:30 Potassium Chloride (Klor-Con) 20 meq BID PO 09/01/20 21:00 09/07/20 19:45 Risperidone (RisperDAL) 0.5 mg TID PO 09/01/20 21:00 09/07/20 19:44 Rivastigmine (Exelon 13.3mg) 1 patch DAILY TD 09/02/20 09:00 09/07/20 08:41 Senna/Docusate Sodium (Senna Plus) 1 tab DAILY PO 09/02/20 09:00 09/07/20 08:42 Sertraline HCl (Zoloft) 50 mg DAILY PO 09/02/20 09:00 09/02/20 16:48 DC 09/02/20 08:22 Tamsulosin HCl (Flomax) 0.4 mg DAILY PO 09/02/20 09:00 09/07/20 08:42 Ascorbic Acid (Vitamin C) 500 mg DAILY PO 09/02/20 09:00 09/07/20 08:42 Atorvastatin Calcium (Lipitor) 40 mg QHS PO 09/01/20 21:00 09/07/20 19:45 Non-Formulary Medication (Capsaicin/ Menthol (Salonpas Gel-Patch Hot)) 1 each HS TP 09/01/20 21:00 UNV Chlorhexidine Gluconate (Peridex) 15 ml BID SWSP 09/01/20 21:00 09/07/20 19:44 Multi-Ingred Cream/Lotion/Oil/ Oint (Hydrocerin) 1 camilla PRN BID PRN TP dry skin 09/01/20 16:45 Melatonin (Melatonin) 3 mg HS PO 09/01/20 21:00 09/07/20 19:46 Non-Formulary Medication (Menthol (Biofreeze)) 1 camilla PRN TID PRN TOP MUSCLE PAIN 09/01/20 15:30 UNV Cyclobenzaprine HCl (Flexeril) 10 mg PRN TID PRN PO low back pain 09/01/20 17:00 09/07/20 20:27 Oxybutynin Chloride (Ditropan) 5 mg BID PO 09/01/20 21:00 09/07/20 19:46 Timolol Maleate (Timoptic 0.5% Ophth) 1 drop BID OU 09/01/20 21:00 09/07/20 19:44 Multi-Ingredient Ointment (Analgesic [place]) 1 camilla PRN QID PRN TP MUSCLE PAIN 09/01/20 16:15 Cancel Al Hydroxide/Mg Hydroxide (Mylanta Plus Xs) 15 ml PRN AFTMEALHC PRN PO DYSPEPSIA 09/01/20 16:15 Levothyroxine Sodium (Synthroid) 25 mcg DAILY06 PO 09/02/20 06:00 09/07/20 05:18 Divalproex Sodium (Depakote Er) 125 mg DAILY PO 09/02/20 09:00 Cancel Sertraline HCl (Zoloft) 75 mg DAILY PO 09/03/20 09:00 09/05/20 11:00 DC 09/05/20 07:45 Sertraline HCl (Zoloft) 100 mg DAILY PO 09/06/20 09:00 09/07/20 08:42 Divalproex Sodium (Depakote Sprinkles) 125 mg DAILY PO 09/03/20 09:00 09/04/20 17:23 DC 09/04/20 10:52 Divalproex Sodium (Depakote Sprinkles) 250 mg DAILY PO 09/05/20 09:00 09/07/20 08:41 I have reviewed the current psychotropics carefully including drug interactions. Risk benefit ratio favors no change other than as noted in my dictated progress note. Diagnosis: Problems: (1) Anxiety disorder (2) Impulse control disorder (3) Lewy body dementia with behavioral disturbance (4) Dementia, vascular, with delusions (5) Dementia in Alzheimer's disease with delusions (6) Major neurocognitive disorder (7) Major depressive disorder with psychotic features CAMERON ROSAS MD Sep 07, 2020 21:12
[2020-09-08] MEDS: LEVOTHYROXINE 25 MCG TABLET. PO SCH (05:17)
[2020-09-08 06:09] VITALS: BP 145/82
[2020-09-08] MEDS: METOPROLOL SUCC 24HR ER 25 MG TAB.ER.24H. PO SCH ×2 (07:59→20:16)
[2020-09-08] MEDS: DIVALPROEX 125 MG CAP.SPRINK PO SCH (07:59)
[2020-09-08] MEDS: SERTRALINE 100 MG TABLET. PO SCH (07:59)
[2020-09-08] MEDS: ASCORBIC ACID 500 MG TABLET PO SCH (08:00)
[2020-09-08] MEDS: OXYBUTYNIN CHLORIDE 5 MG TABLET PO SCH ×2 (08:00→20:14)
[2020-09-08] MEDS: DOCUSATE SODIUM 100 MG CAPSULE PO SCH (08:00)
[2020-09-08] MEDS: SENNOSIDES/DOCUSATE 8.6/50MG TABLET. PO SCH (08:00)
[2020-09-08] MEDS: CARBIDOPA/LEVODOPA 10/100MG TABLET PO SCH ×4 (08:00→20:14)
[2020-09-08] MEDS: risperiDONE 0.5 MG TABLET. PO SCH ×3 (08:00→20:14)
[2020-09-08] MEDS: BUMETANIDE 1 MG TABLET PO SCH (08:01)
[2020-09-08] MEDS: TAMSULOSIN 0.4 MG CAP.ER.24H. PO SCH (08:01)
[2020-09-08] MEDS: MEMANTINE 10 MG TABLET. PO SCH ×2 (08:01→16:33)
[2020-09-08] MEDS: POTASSIUM CHLORIDE 20 MEQ TABLET.ER. PO SCH ×3 (08:01→20:15)
[2020-09-08] MEDS: RIVASTIGMINE 13.3MG PATCH. TD SCH (08:01)
[2020-09-08] MEDS: APIXABAN 5 MG TABLET. PO SCH ×2 (08:01→20:14)
[2020-09-08] MEDS: CHLORHEXIDINE 0.12% 15 ML MOUTHWASH. SWSP SCH ×2 (08:01→20:16)
[2020-09-08] MEDS: POLYETHYLENE GLYCOL 3350 17 GM PACKET. PO SCH (08:02)
[2020-09-08] MEDS: TIMOLOL 0.5% OPHTH SOLUTION 5ML BOTTLE. OU SCH ×2 (08:03→20:14)
[2020-09-08 10:50] LABS: BASO % 1 % (0-3); EOS # 0.2 x10^3/uL (0.0-0.7); EOS % 3 % (0-3); HEMATOCRIT 41.6 % (39.0-53.0); LYMPH # 2.3 x10^3/uL (1.0-4.8); LYMPH % 30 % (24-48); MEAN CORPUSCULAR HEMOGLOBIN 31 pg (25-35); MEAN CORPUSCULAR HGB CONC 34 g/dL (31-37); MEAN CORPUSCULAR VOLUME 92 fL (79-100); MONO # 0.7 x10^3/uL (0.0-1.1); MONO % 9 % (0-9); NEUT # 4.5 x10^3uL (1.8-7.7); NEUT % 58 % (31-73); PLATELET COUNT 140 x10^3/uL (140-400); RED BLOOD COUNT 4.51 x10^6/uL (4.30-5.70); RED CELL DISTRIBUTION WIDTH 14.3 % (11.5-14.5); WHITE BLOOD COUNT 7.8 x10^3/uL (4.0-11.0)
[2020-09-08 11:15] LABS: ALBUMIN 3.1 g/dL (3.4-5.0); ALBUMIN/GLOBULIN RATIO 0.8 (1.0-1.7); ALK PHOS 68 U/L (46-116); ALT (SGPT) 14 U/L (16-63); ANION GAP 7 (6-14); AST (SGOT) 13 U/L (15-37); BLOOD UREA NITROGEN 12 mg/dL (8-26); BUN/CREATININE RATIO 17 (6-20); CALCIUM 8.6 mg/dL (8.5-10.1); CARBON DIOXIDE 30 mmol/L (21-32); CHLORIDE 105 mmol/L (98-107); CREATININE 0.7 mg/dL (0.7-1.3); GFR 111.5; GLUCOSE 117 mg/dL (70-99); POTASSIUM 3.3 mmol/L (3.5-5.1); SODIUM 142 mmol/L (136-145); TOTAL BILIRUBIN 0.7 mg/dL (0.2-1.0); TOTAL PROTEIN 6.8 g/dL (6.4-8.2)
[2020-09-08 11:24] LABS: VAL ACID 58 mcg/mL (50-100)
--- NOTE | 2020-09-08 13:17 | RAD ---
EXAM: Chest, single view. HISTORY: Shortness of breath. COMPARISON: None. FINDINGS: A frontal view of the chest is obtained. There is no infiltrate, pleural effusion or pneumo thorax. The heart is normal in size. There is a cardiac pacemaker with leads in expected position. IMPRESSION: No acute pulmonary finding. Electronically signed by: Karol Guzman MD (09/08/2020 1:14 PM) [facility]
[2020-09-08] MEDS ORDERED: BUMETANIDE 1 MG TABLET PO ONE (14:00)
[2020-09-08 15:00] VITALS: BP 122/65
[2020-09-08] MEDS: ACETAMINOPHEN 500 MG TABLET PO SCH (20:14)
[2020-09-08] MEDS: MELATONIN 3 MG TABLET PO SCH (20:14)
[2020-09-08] MEDS: GABAPENTIN 300 MG CAPSULE. PO SCH (20:15)
[2020-09-08] MEDS: ATORVASTATIN CALCIUM 20 MG TABLET PO SCH (20:15)
[2020-09-08] MEDS: DIVALPROEX ER 500 MG TAB.ER.24H PO SCH (20:15)
--- NOTE | 2020-09-08 21:01 | PDOC ---
Exam Note: Michael Note: Please also refer to the separate dictated note~for this date of service dictated separately.~Patient seen individually. Discussed the patient with Nursing staff reviewed the chart.~Reviewed interim history and current functioning. Reviewed vital signs,~Labs/ Radiology~and current medications noted below. Continue current treatment with the changes noted in the dictated addendum note Assessment: Vital Signs/I&O: Vital Signs Date Time Temp Pulse Resp B/P (MAP) Pulse Ox O2 Delivery O2 Flow Rate FiO2 09/08/20 20:16 70 122/65 09/08/20 15:00 98.1 18 98 Room Air I & O 09/07/20 09/07/20 09/08/20 14:59 22:59 06:59 Intake Total 720 ml 360 ml Balance 720 ml 360 ml Labs: Laboratory Tests Test 09/08/20 09:45 09/08/20 10:30 09/08/20 11:09 White Blood Count 7.8 x10^3/uL (4.0-11.0) Red Blood Count 4.51 x10^6/uL (4.30-5.70) Hemoglobin 14.0 g/dL (13.0-17.5) Hematocrit 41.6 % (39.0-53.0) Mean Corpuscular Volume 92 fL (79-100) Mean Corpuscular Hemoglobin 31 pg (25-35) Mean Corpuscular Hemoglobin Concent 34 g/dL (31-37) Red Cell Distribution Width 14.3 % (11.5-14.5) Platelet Count 140 x10^3/uL (140-400) Neutrophils (%) (Auto) 58 % (31-73) Lymphocytes (%) (Auto) 30 % (24-48) Monocytes (%) (Auto) 9 % (0-9) Eosinophils (%) (Auto) 3 % (0-3) Basophils (%) (Auto) 1 % (0-3) Neutrophils # (Auto) 4.5 x10^3uL (1.8-7.7) Lymphocytes # (Auto) 2.3 x10^3/uL (1.0-4.8) Monocytes # (Auto) 0.7 x10^3/uL (0.0-1.1) Eosinophils # (Auto) 0.2 x10^3/uL (0.0-0.7) Basophils # (Auto) 0.0 x10^3/uL (0.0-0.2) [id number] Natriuretic Peptide 545 pg/mL (0-124) H Sodium Level 142 mmol/L (136-145) Potassium Level 3.3 mmol/L (3.5-5.1) L Chloride Level 105 mmol/L (98-107) Carbon Dioxide Level 30 mmol/L (21-32) Anion Gap 7 (6-14) Blood Urea Nitrogen 12 mg/dL (8-26) Creatinine 0.7 mg/dL (0.7-1.3) Estimated GFR (Cockcroft-Gault) 111.5 BUN/Creatinine Ratio 17 (6-20) Glucose Level 117 mg/dL (70-99) H Calcium Level 8.6 mg/dL (8.5-10.1) Total Bilirubin 0.7 mg/dL (0.2-1.0) Aspartate Amino Transferase (AST) 13 U/L (15-37) L Alanine Aminotransferase (ALT) 14 U/L (16-63) L Alkaline Phosphatase 68 U/L (46-116) Total Protein 6.8 g/dL (6.4-8.2) Albumin 3.1 g/dL (3.4-5.0) L Albumin/Globulin Ratio 0.8 (1.0-1.7) L Valproic Acid Level 58 mcg/mL (50-100) Valproic Acid Last Dose Date 09/07/20 Valproic Acid Last Dose Time 2100 Glucose (Fingerstick) 101 mg/dL (70-99) H Current Medications: Meds: Laboratory Tests Test 09/08/20 09:45 09/08/20 10:30 09/08/20 11:09 White Blood Count 7.8 x10^3/uL Red Blood Count 4.51 x10^6/uL Hemoglobin 14.0 g/dL Hematocrit 41.6 % Mean Corpuscular Volume 92 fL Mean Corpuscular Hemoglobin 31 pg Mean Corpuscular Hemoglobin Concent 34 g/dL Red Cell Distribution Width 14.3 % Platelet Count 140 x10^3/uL Neutrophils (%) (Auto) 58 % Lymphocytes (%) (Auto) 30 % Monocytes (%) (Auto) 9 % Eosinophils (%) (Auto) 3 % Basophils (%) (Auto) 1 % Neutrophils # (Auto) 4.5 x10^3uL Lymphocytes # (Auto) 2.3 x10^3/uL Monocytes # (Auto) 0.7 x10^3/uL Eosinophils # (Auto) 0.2 x10^3/uL Basophils # (Auto) 0.0 x10^3/uL [id number]-Type Natriuretic Peptide 545 pg/mL Sodium Level 142 mmol/L Potassium Level 3.3 mmol/L Chloride Level 105 mmol/L Carbon Dioxide Level 30 mmol/L Anion Gap 7 Blood Urea Nitrogen 12 mg/dL Creatinine 0.7 mg/dL Estimated GFR (Cockcroft-Gault) 111.5 BUN/Creatinine Ratio 17 Glucose Level 117 mg/dL Calcium Level 8.6 mg/dL Total Bilirubin 0.7 mg/dL Aspartate Amino Transf (AST/SGOT) 13 U/L Alanine Aminotransferase (ALT/SGPT) 14 U/L Alkaline Phosphatase 68 U/L Total Protein 6.8 g/dL Albumin 3.1 g/dL Albumin/Globulin Ratio 0.8 Valproic Acid (Depakene) Level 58 mcg/mL Valproic Acid Last Dose Date 09/07/20 Valproic Acid Last Dose Time 2100 Glucose (Fingerstick) 101 mg/dL Current Medications Medications (Trade) Dose Ordered Sig/Gloria Route PRN Reason Start Time Stop Time Status Last Admin Dose Admin Acetaminophen (Tylenol) 500 mg HS PO 09/01/20 21:00 09/08/20 20:14 Apixaban (Eliquis) 5 mg BID PO 09/01/20 21:00 09/08/20 20:14 Bumetanide (Bumex) 1 mg DAILY PO 09/02/20 09:00 09/08/20 12:01 DC 09/08/20 08:01 Carbidopa/Levodopa (Sinemet 10/100) 0.5 tab [id number] PO 09/01/20 17:00 09/08/20 20:14 Diclofenac Sodium (Voltaren) 1 camilla PRN BID PRN TP MUSCLE PAIN 09/01/20 15:30 Divalproex Sodium (Depakote Sprinkles) 125 mg DAILY PO 09/02/20 09:00 09/02/20 09:00 DC 09/02/20 08:22 Divalproex Sodium (Depakote Er) 500 mg QHS PO 09/01/20 21:00 09/08/20 20:15 Docusate Sodium (Colace) 100 mg DAILY PO 09/02/20 09:00 09/08/20 08:00 Gabapentin (Neurontin) 300 mg HS PO 09/01/20 21:00 09/08/20 20:15 Ibuprofen (Motrin) 400 mg PRN Q8HRS PRN PO PAIN 09/01/20 15:30 UNV Levothyroxine Sodium (Synthroid) 25 mcg DAILYAC PO 09/02/20 07:30 09/01/20 19:50 DC Magnesium Hydroxide (Milk Of Magnesia) 2,400 mg PRN QHS PRN PO CONSTIPATION, 2ND CHOICE 09/01/20 15:30 09/04/20 05:12 Memantine (Namenda) 10 mg [id number] PO 09/01/20 16:30 09/08/20 16:33 Metoprolol Succinate (Toprol Xl) 12.5 mg BID PO 09/01/20 21:00 09/08/20 20:16 Olanzapine (ZyPREXA ZYDIS) 5 mg PRN Q12HR PRN PO ANXIETY / AGITATION 09/01/20 15:30 Polyethylene Glycol (miraLAX) 17 gm DAILY PO 09/02/20 09:00 09/08/20 08:02 Polyethylene Glycol (miraLAX) 17 gm PRN DAILY PRN PO CONSTIPATION, 1ST CHOICE 09/01/20 15:30 Potassium Chloride (Klor-Con) 20 meq BID PO 09/01/20 21:00 09/08/20 12:01 DC 09/08/20 08:01 Risperidone (RisperDAL) 0.5 mg TID PO 09/01/20 21:00 09/08/20 20:14 Rivastigmine (Exelon 13.3mg) 1 patch DAILY TD 09/02/20 09:00 09/08/20 08:01 Senna/Docusate Sodium (Senna Plus) 1 tab DAILY PO 09/02/20 09:00 09/08/20 08:00 Sertraline HCl (Zoloft) 50 mg DAILY PO 09/02/20 09:00 09/02/20 16:48 DC 09/02/20 08:22 Tamsulosin HCl (Flomax) 0.4 mg DAILY PO 09/02/20 09:00 09/08/20 08:01 Ascorbic Acid (Vitamin C) 500 mg DAILY PO 09/02/20 09:00 09/08/20 08:00 Atorvastatin Calcium (Lipitor) 40 mg QHS PO 09/01/20 21:00 09/08/20 20:15 Non-Formulary Medication (Capsaicin/ Menthol (Salonpas Gel-Patch Hot)) 1 each HS TP 09/01/20 21:00 UNV Chlorhexidine Gluconate (Peridex) 15 ml BID SWSP 09/01/20 21:00 09/08/20 20:16 Multi-Ingred Cream/Lotion/Oil/ Oint (Hydrocerin) 1 camilla PRN BID PRN TP dry skin 09/01/20 16:45 Melatonin (Melatonin) 3 mg HS PO 09/01/20 21:00 09/08/20 20:14 Non-Formulary Medication (Menthol (Biofreeze)) 1 camilla PRN TID PRN TOP MUSCLE PAIN 09/01/20 15:30 UNV Cyclobenzaprine HCl (Flexeril) 10 mg PRN TID PRN PO low back pain 09/01/20 17:00 09/07/20 20:27 Oxybutynin Chloride (Ditropan) 5 mg BID PO 09/01/20 21:00 09/08/20 20:14 Timolol Maleate (Timoptic 0.5% Oph) 1 drop BID OU 09/01/20 21:00 09/08/20 20:14 Multi-Ingredient Ointment (Analgesic Blair) 1 camilla PRN QID PRN TP MUSCLE PAIN 09/01/20 16:15 Cancel Al Hydroxide/Mg Hydroxide (Mylanta Plus Xs) 15 ml PRN AFTMEALHC PRN PO DYSPEPSIA 09/01/20 16:15 Levothyroxine Sodium (Synthroid) 25 mcg DAILY06 PO 09/02/20 06:00 09/08/20 05:17 Divalproex Sodium (Depakote Er) 125 mg DAILY PO 09/02/20 09:00 Cancel Sertraline HCl (Zoloft) 75 mg DAILY PO 09/03/20 09:00 09/05/20 11:00 DC 09/05/20 07:45 Sertraline HCl (Zoloft) 100 mg DAILY PO 09/06/20 09:00 09/08/20 07:59 Divalproex Sodium (Depakote Sprinkles) 125 mg DAILY PO 09/03/20 09:00 09/04/20 17:23 DC 09/04/20 10:52 Divalproex Sodium (Depakote Sprinkles) 250 mg DAILY PO 09/05/20 09:00 09/08/20 07:59 Bumetanide (Bumex) 2 mg DAILY PO 09/09/20 09:00 Potassium Chloride (Klor-Con) 20 meq TID PO 09/08/20 14:00 09/08/20 20:15 Bumetanide (Bumex) 1 mg 1X ONCE PO 09/08/20 14:00 09/08/20 14:01 DC 09/08/20 14:00 Current Medications Medications (Trade) Dose Ordered Sig/Gloria Route PRN Reason Start Time Stop Time Status Last Admin Dose Admin Potassium Chloride (Klor-Con) 20 meq TID PO 09/08/20 14:00 09/08/20 20:15 Bumetanide (Bumex) 1 mg 1X ONCE PO 09/08/20 14:00 09/08/20 14:01 DC 09/08/20 14:00 I have reviewed the current psychotropics carefully including drug interactions. Risk benefit ratio favors no change other than as noted in my dictated progress note. Diagnosis: Problems: (1) Anxiety disorder (2) Impulse control disorder (3) Lewy body dementia with behavioral disturbance (4) Dementia, vascular, with delusions (5) Dementia in Alzheimer's disease with delusions (6) Major neurocognitive disorder (7) Major depressive disorder with psychotic features CAMERON ROSAS MD Sep 08, 2020 21:01
[2020-09-09] MEDS: LEVOTHYROXINE 25 MCG TABLET. PO SCH (05:27)
[2020-09-09 06:31] VITALS: BP 135/77
[2020-09-09] MEDS: TIMOLOL 0.5% OPHTH SOLUTION 5ML BOTTLE. OU SCH ×2 (08:32→20:53)
[2020-09-09] MEDS: CARBIDOPA/LEVODOPA 10/100MG TABLET PO SCH ×4 (08:32→20:56)
[2020-09-09] MEDS: MEMANTINE 10 MG TABLET. PO SCH ×2 (08:33→17:09)
[2020-09-09] MEDS: METOPROLOL SUCC 24HR ER 25 MG TAB.ER.24H. PO SCH ×2 (08:33→20:57)
[2020-09-09] MEDS: BUMETANIDE 1 MG TABLET PO SCH (08:33)
[2020-09-09] MEDS: ASCORBIC ACID 500 MG TABLET PO SCH (08:33)
[2020-09-09] MEDS: SERTRALINE 100 MG TABLET. PO SCH (08:33)
[2020-09-09] MEDS: SENNOSIDES/DOCUSATE 8.6/50MG TABLET. PO SCH (08:33)
[2020-09-09] MEDS: TAMSULOSIN 0.4 MG CAP.ER.24H. PO SCH (08:33)
[2020-09-09] MEDS: risperiDONE 0.5 MG TABLET. PO SCH ×3 (08:33→20:58)
[2020-09-09] MEDS: APIXABAN 5 MG TABLET. PO SCH ×2 (08:33→20:56)
[2020-09-09] MEDS: OXYBUTYNIN CHLORIDE 5 MG TABLET PO SCH ×2 (08:33→20:54)
[2020-09-09] MEDS: POTASSIUM CHLORIDE 20 MEQ TABLET.ER. PO SCH ×3 (08:34→20:55)
[2020-09-09] MEDS: DOCUSATE SODIUM 100 MG CAPSULE PO SCH (08:34)
[2020-09-09] MEDS: RIVASTIGMINE 13.3MG PATCH. TD SCH (08:34)
[2020-09-09] MEDS: CHLORHEXIDINE 0.12% 15 ML MOUTHWASH. SWSP SCH ×2 (08:34→20:53)
[2020-09-09] MEDS: DIVALPROEX 125 MG CAP.SPRINK PO SCH (08:34)
[2020-09-09] MEDS: POLYETHYLENE GLYCOL 3350 17 GM PACKET. PO SCH (08:34)
[2020-09-09 16:36] VITALS: BP 112/65
--- NOTE | 2020-09-09 17:21 | RAD ---
EXAM: Chest, single view. HISTORY: Chest pain. COMPARISON: None. FINDINGS: A frontal view of the chest is obtained. There is stable diffuse interstitial prominence. T here is no consolidation, pleural effusion or pneumothorax. There is a cardiac pacemaker in expected position. The heart is stable in size. IMPRESSION: No acute pulmonary finding. Electronically signed by: Karol Guzman MD (09/09/2020 5:13 PM) [facility]
[2020-09-09] MEDS: GABAPENTIN 300 MG CAPSULE. PO SCH (20:57)
--- NOTE | 2020-09-09 20:57 | PDOC ---
Exam Note: Michael Note: This note is a late entry for 09/07/2020 covers elements not covered in my initial note. Subjective: The patient was seen face to face in the evening of 09/07/2020 with Osiris BRASHER. Discussed with nursing staff, reviewed the chart. He slept 8-3/4 hours previous night. The patient is reasonably oriented. He gets delusional, anxious, later in the day. No p.r.n.s were needed to be given. No agitation. Review of Systems: No CV, , pulmonary, eye system symptoms on review. Mental Status Exam: The patient is reasonably oriented. Speech is coherent, has some latency. Abstraction is fair. Computation is impaired. Language function is intact. Mood and affect somewhat withdrawn. Laboratory Data: Reviewed. Impression: Major neurocognitive disorder, Lewy body with delusion, depression, behavioral disturbance. Major depressive disorder with psychotic features. 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 Rest unchanged. Plan: We will continue his current psychotropics. Adjust further as clinically indicated. Assessment: Vital Signs/I&O: Vital Signs Date Time Temp Pulse Resp B/P (MAP) Pulse Ox O2 Delivery O2 Flow Rate FiO2 09/09/20 16:36 97.6 86 24 112/65 (81) 99 09/09/20 06:31 Room Air I & O 09/08/20 09/08/20 09/09/20 15:00 23:00 07:00 Intake Total 180 ml 480 ml Balance 180 ml 480 ml Labs: Laboratory Tests Test 09/09/20 16:45 Creatine Kinase 54 U/L (39-308) Troponin I Quantitative 0.018 ng/mL (0-0.055) Current Medications: Meds: Current Medications Medications (Trade) Dose Ordered Sig/Gloria Route PRN Reason Start Time Stop Time Status Last Admin Dose Admin Bumetanide (Bumex) 2 mg DAILY PO 09/09/20 09:00 09/09/20 08:33 I have reviewed the current psychotropics carefully including drug interactions. Risk benefit ratio favors no change other than as noted in my dictated progress note. Diagnosis: Problems: (1) Anxiety disorder (2) Impulse control disorder (3) Lewy body dementia with behavioral disturbance (4) Dementia, vascular, with delusions (5) Dementia in Alzheimer's disease with delusions (6) Major neurocognitive disorder (7) Major depressive disorder with psychotic features (8) Parkinson's disease CAMERON ROSAS MD Sep 09, 2020 20:57
[2020-09-09] MEDS: ACETAMINOPHEN 500 MG TABLET PO SCH (20:58)
[2020-09-09] MEDS: DIVALPROEX ER 500 MG TAB.ER.24H PO SCH (20:58)
[2020-09-09] MEDS: ATORVASTATIN CALCIUM 20 MG TABLET PO SCH (20:58)
[2020-09-09] MEDS: MELATONIN 3 MG TABLET PO SCH (20:59)
--- NOTE | 2020-09-09 21:33 | PDOC ---
Exam Note: Michael Note: Please also refer to the separate dictated note~for this date of service dictated separately.~Patient seen individually. Discussed the patient with Nursing staff reviewed the chart.~Reviewed interim history and current functioning. Reviewed vital signs,~Labs/ Radiology~and current medications noted below. Continue current treatment with the changes noted in the dictated addendum note Assessment: Vital Signs/I&O: Vital Signs Date Time Temp Pulse Resp B/P (MAP) Pulse Ox O2 Delivery O2 Flow Rate FiO2 09/09/20 20:57 86 112/65 09/09/20 16:36 97.6 24 99 09/09/20 06:31 Room Air I & O 09/08/20 09/08/20 09/09/20 15:00 23:00 07:00 Intake Total 180 ml 480 ml Balance 180 ml 480 ml Labs: Laboratory Tests Test 09/09/20 16:45 Creatine Kinase 54 U/L (39-308) Troponin I Quantitative 0.018 ng/mL (0-0.055) Current Medications: Meds: Current Medications Medications (Trade) Dose Ordered Sig/Gloria Route PRN Reason Start Time Stop Time Status Last Admin Dose Admin Bumetanide (Bumex) 2 mg DAILY PO 09/09/20 09:00 09/09/20 08:33 I have reviewed the current psychotropics carefully including drug interactions. Risk benefit ratio favors no change other than as noted in my dictated progress note. Diagnosis: Problems: (1) Anxiety disorder (2) Impulse control disorder (3) Lewy body dementia with behavioral disturbance (4) Dementia, vascular, with delusions (5) Dementia in Alzheimer's disease with delusions (6) Major neurocognitive disorder (7) Major depressive disorder with psychotic features (8) Parkinson's disease CAMERON ROSAS MD Sep 09, 2020 21:33
--- NOTE | 2020-09-09 21:33 | PDOC ---
Exam Note: Mihcael Note: This note is a late entry for 09/08/2020 covers elements not covered in my initial note. Subjective: The patient was seen face to face in the evening of 09/08/2020 with Sabrina BRASHER. Discussed with nursing staff, reviewed the chart. He slept 8-1/2 hours previous night. The patient has been pleasant, cooperative, somewhat lethargic. He was tired but no fever noted. COVID screen has been done today. Result awaited. Review of Systems: No CV, , pulmonary, eye system symptoms on review. Mental Status Exam: The patient is reasonably oriented at times. I met with him in his room. Speech is coherent, has some latency. Abstraction is fair. Computation is impaired. Language function is intact. Mood and affect withdrawn. Laboratory Data: Reviewed. Impression: Major depressive disorder rule out psychotic features. Lewy body dementia early with delusion, depression. Anxiety disorder unspecified. Impulse control disorder unspecified. Plan: No change from initial note. Assessment: Vital Signs/I&O: Vital Signs Date Time Temp Pulse Resp B/P (MAP) Pulse Ox O2 Delivery O2 Flow Rate FiO2 09/09/20 20:57 86 112/65 09/09/20 16:36 97.6 24 99 09/09/20 06:31 Room Air I & O 09/08/20 09/08/20 09/09/20 15:00 23:00 07:00 Intake Total 180 ml 480 ml Balance 180 ml 480 ml Labs: Laboratory Tests Test 09/09/20 16:45 Creatine Kinase 54 U/L (39-308) Troponin I Quantitative 0.018 ng/mL (0-0.055) Current Medications: Meds: Laboratory Tests Test 09/09/20 16:45 Creatine Kinase 54 U/L Troponin I Quantitative 0.018 ng/mL Current Medications Medications (Trade) Dose Ordered Sig/Gloria Route PRN Reason Start Time Stop Time Status Last Admin Dose Admin Acetaminophen (Tylenol) 500 mg HS PO 09/01/20 21:00 09/09/20 20:58 Apixaban (Eliquis) 5 mg BID PO 09/01/20 21:00 09/09/20 20:56 Bumetanide (Bumex) 1 mg DAILY PO 09/02/20 09:00 09/08/20 12:01 DC 09/08/20 08:01 Carbidopa/Levodopa (Sinemet 10/100) 0.5 tab [id number] PO 09/01/20 17:00 09/09/20 20:56 Diclofenac Sodium (Voltaren) 1 camilla PRN BID PRN TP MUSCLE PAIN 09/01/20 15:30 Divalproex Sodium (Depakote Sprinkles) 125 mg DAILY PO 09/02/20 09:00 09/02/20 09:00 DC 09/02/20 08:22 Divalproex Sodium (Depakote Er) 500 mg QHS PO 09/01/20 21:00 09/09/20 20:58 Docusate Sodium (Colace) 100 mg DAILY PO 09/02/20 09:00 09/09/20 08:34 Gabapentin (Neurontin) 300 mg HS PO 09/01/20 21:00 09/09/20 20:57 Ibuprofen (Motrin) 400 mg PRN Q8HRS PRN PO PAIN 09/01/20 15:30 UNV Levothyroxine Sodium (Synthroid) 25 mcg DAILYAC PO 09/02/20 07:30 09/01/20 19:50 DC Magnesium Hydroxide (Milk Of Magnesia) 2,400 mg PRN QHS PRN PO CONSTIPATION, 2ND CHOICE 09/01/20 15:30 09/04/20 05:12 Memantine (Namenda) 10 mg [id number] PO 09/01/20 16:30 09/09/20 17:09 Metoprolol Succinate (Toprol Xl) 12.5 mg BID PO 09/01/20 21:00 09/09/20 20:57 Olanzapine (ZyPREXA ZYDIS) 5 mg PRN Q12HR PRN PO ANXIETY / AGITATION 09/01/20 15:30 Polyethylene Glycol (miraLAX) 17 gm DAILY PO 09/02/20 09:00 09/09/20 08:34 Polyethylene Glycol (miraLAX) 17 gm PRN DAILY PRN PO CONSTIPATION, 1ST CHOICE 09/01/20 15:30 Potassium Chloride (Klor-Con) 20 meq BID PO 09/01/20 21:00 09/08/20 12:01 DC 09/08/20 08:01 Risperidone (RisperDAL) 0.5 mg TID PO 09/01/20 21:00 09/09/20 20:58 Rivastigmine (Exelon 13.3mg) 1 patch DAILY TD 09/02/20 09:00 09/09/20 08:34 Senna/Docusate Sodium (Senna Plus) 1 tab DAILY PO 09/02/20 09:00 09/09/20 08:33 Sertraline HCl (Zoloft) 50 mg DAILY PO 09/02/20 09:00 09/02/20 16:48 DC 09/02/20 08:22 Tamsulosin HCl (Flomax) 0.4 mg DAILY PO 09/02/20 09:00 09/09/20 08:33 Ascorbic Acid (Vitamin C) 500 mg DAILY PO 09/02/20 09:00 09/09/20 08:33 Atorvastatin Calcium (Lipitor) 40 mg QHS PO 09/01/20 21:00 09/09/20 20:58 Non-Formulary Medication (Capsaicin/ Menthol (Salonpas Gel-Patch Hot)) 1 each HS TP 09/01/20 21:00 UNV Chlorhexidine Gluconate (Peridex) 15 ml BID SWSP 09/01/20 21:00 09/09/20 20:53 Multi-Ingred Cream/Lotion/Oil/ Oint (Hydrocerin) 1 camilla PRN BID PRN TP dry skin 09/01/20 16:45 Melatonin (Melatonin) 3 mg HS PO 09/01/20 21:00 09/09/20 20:59 Non-Formulary Medication (Menthol (Biofreeze)) 1 camilla PRN TID PRN TOP MUSCLE PAIN 09/01/20 15:30 UNV Cyclobenzaprine HCl (Flexeril) 10 mg PRN TID PRN PO low back pain 09/01/20 17:00 09/07/20 20:27 Oxybutynin Chloride (Ditropan) 5 mg BID PO 09/01/20 21:00 09/09/20 20:54 Timolol Maleate (Timoptic 0.5% [facility]) 1 drop BID OU 09/01/20 21:00 09/09/20 20:53 Multi-Ingredient Ointment (Analgesic [place]) 1 camilla PRN QID PRN TP MUSCLE PAIN 09/01/20 16:15 Cancel Al Hydroxide/Mg Hydroxide (Mylanta Plus Xs) 15 ml PRN AFTMEALHC PRN PO DYSPEPSIA 09/01/20 16:15 Levothyroxine Sodium (Synthroid) 25 mcg DAILY06 PO 09/02/20 06:00 09/09/20 05:27 Divalproex Sodium (Depakote Er) 125 mg DAILY PO 09/02/20 09:00 Cancel Sertraline HCl (Zoloft) 75 mg DAILY PO 09/03/20 09:00 09/05/20 11:00 DC 09/05/20 07:45 Sertraline HCl (Zoloft) 100 mg DAILY PO 09/06/20 09:00 09/09/20 08:33 Divalproex Sodium (Depakote Sprinkles) 125 mg DAILY PO 09/03/20 09:00 09/04/20 17:23 DC 09/04/20 10:52 Divalproex Sodium (Depakote Sprinkles) 250 mg DAILY PO 09/05/20 09:00 09/09/20 08:34 Bumetanide (Bumex) 2 mg DAILY PO 09/09/20 09:00 09/09/20 08:33 Potassium Chloride (Klor-Con) 20 meq TID PO 09/08/20 14:00 09/09/20 20:55 Bumetanide (Bumex) 1 mg 1X ONCE PO 09/08/20 14:00 09/08/20 14:01 DC 09/08/20 14:00 Current Medications Medications (Trade) Dose Ordered Sig/Gloria Route PRN Reason Start Time Stop Time Status Last Admin Dose Admin Bumetanide (Bumex) 2 mg DAILY PO 09/09/20 09:00 09/09/20 08:33 I have reviewed the current psychotropics carefully including drug interactions. Risk benefit ratio favors no change other than as noted in my dictated progress note. Diagnosis: Problems: (1) Anxiety disorder (2) Impulse control disorder (3) Lewy body dementia with behavioral disturbance (4) Dementia, vascular, with delusions (5) Dementia in Alzheimer's disease with delusions (6) Major neurocognitive disorder (7) Major depressive disorder with psychotic features (8) Parkinson's disease CAMERON ROSAS MD Sep 09, 2020 21:33
[2020-09-10] MEDS: LEVOTHYROXINE 25 MCG TABLET. PO SCH (05:16)
[2020-09-10 06:14] VITALS: BP 137/75
[2020-09-10 06:39] LABS: BASO # 0.1 x10^3/uL (0.0-0.2); BASO % 1 % (0-3); EOS # 0.3 x10^3/uL (0.0-0.7); EOS % 4 % (0-3); HEMOGLOBIN 13.4 g/dL (13.0-17.5); LYMPH % 42 % (24-48); MEAN CORPUSCULAR HEMOGLOBIN 31 pg (25-35); MEAN CORPUSCULAR HGB CONC 33 g/dL (31-37); MEAN CORPUSCULAR VOLUME 93 fL (79-100); MONO # 0.8 x10^3/uL (0.0-1.1); MONO % 11 % (0-9); NEUT # 3.1 x10^3uL (1.8-7.7); NEUT % 43 % (31-73); PLATELET COUNT 144 x10^3/uL (140-400); RED BLOOD COUNT 4.29 x10^6/uL (4.30-5.70); RED CELL DISTRIBUTION WIDTH 14.5 % (11.5-14.5); WHITE BLOOD COUNT 7.2 x10^3/uL (4.0-11.0)
[2020-09-10 06:44] LABS: ALBUMIN 2.9 g/dL (3.4-5.0); ALBUMIN/GLOBULIN RATIO 0.8 (1.0-1.7); CALCIUM 8.5 mg/dL (8.5-10.1); CREATININE 0.9 mg/dL (0.7-1.3); GFR 83.4; POTASSIUM 3.4 mmol/L (3.5-5.1); TOTAL BILIRUBIN 0.7 mg/dL (0.2-1.0); TOTAL PROTEIN 6.4 g/dL (6.4-8.2)
--- NOTE | 2020-09-10 08:18 | PDOC ---
Exam Note: Michael Note: This note is a late entry for 09/09/2020 covers elements not covered in my initial note. Subjective: The patient was seen face to face in the evening of 09/09/2020 with Zack BRASHER. Discussed with nursing staff, reviewed the chart. He slept 9-1/4 hours previous night. Overall the patient has done better during the day, reasonably oriented, but other time I saw him in the evening he was little more confused. Review of Systems: Ambulation impaired. He had complained of chest pain earlier. Dr. Villeda ordered an EKG and troponin amongst other labs. We will defer to Dr. Villeda. No CV, , pulmonary, eye system symptoms on review. Mental Status Exam: The patient is reasonably oriented. Speech has some latency, coherent. Often response is monosyllabic. Abstraction is fair. Computation is impaired. Language function is intact. Attention span is short. Mood and affect somewhat withdrawn. Laboratory Data: Reviewed. Impression: Major depressive disorder rule out psychotic features. Lewy body dementia early with delusion, depression. Anxiety disorder unspecified. Impulse control disorder unspecified. Plan: Valproic acid level is 58, therapeutic. Continue psychotropics from initial note. Assessment: Vital Signs/I&O: Vital Signs Date Time Temp Pulse Resp B/P (MAP) Pulse Ox O2 Delivery O2 Flow Rate FiO2 09/10/20 06:14 97.7 61 14 137/75 (95) 94 Room Air I & O 09/09/20 09/09/20 09/10/20 15:00 23:00 07:00 Intake Total 240 ml 120 ml Balance 240 ml 120 ml Labs: Laboratory Tests Test 09/09/20 16:45 09/10/20 05:58 Creatine Kinase 54 U/L (39-308) Troponin I Quantitative 0.018 ng/mL (0-0.055) White Blood Count 7.2 x10^3/uL (4.0-11.0) Red Blood Count 4.29 x10^6/uL (4.30-5.70) L Hemoglobin 13.4 g/dL (13.0-17.5) Hematocrit 40.0 % (39.0-53.0) Mean Corpuscular Volume 93 fL (79-100) Mean Corpuscular Hemoglobin 31 pg (25-35) Mean Corpuscular Hemoglobin Concent 33 g/dL (31-37) Red Cell Distribution Width 14.5 % (11.5-14.5) Platelet Count 144 x10^3/uL (140-400) Neutrophils (%) (Auto) 43 % (31-73) Lymphocytes (%) (Auto) 42 % (24-48) Monocytes (%) (Auto) 11 % (0-9) H Eosinophils (%) (Auto) 4 % (0-3) H Basophils (%) (Auto) 1 % (0-3) Neutrophils # (Auto) 3.1 x10^3uL (1.8-7.7) Lymphocytes # (Auto) 3.0 x10^3/uL (1.0-4.8) Monocytes # (Auto) 0.8 x10^3/uL (0.0-1.1) Eosinophils # (Auto) 0.3 x10^3/uL (0.0-0.7) Basophils # (Auto) 0.1 x10^3/uL (0.0-0.2) Sodium Level 142 mmol/L (136-145) Potassium Level 3.4 mmol/L (3.5-5.1) L Chloride Level 107 mmol/L (98-107) Carbon Dioxide Level 29 mmol/L (21-32) Anion Gap 6 (6-14) Blood Urea Nitrogen 16 mg/dL (8-26) Creatinine 0.9 mg/dL (0.7-1.3) Estimated GFR (Cockcroft-Gault) 83.4 BUN/Creatinine Ratio 18 (6-20) Glucose Level 102 mg/dL (70-99) H Calcium Level 8.5 mg/dL (8.5-10.1) Total Bilirubin 0.7 mg/dL (0.2-1.0) Aspartate Amino Transferase (AST) 12 U/L (15-37) L Alanine Aminotransferase (ALT) 12 U/L (16-63) L Alkaline Phosphatase 62 U/L (46-116) Total Protein 6.4 g/dL (6.4-8.2) Albumin 2.9 g/dL (3.4-5.0) L Albumin/Globulin Ratio 0.8 (1.0-1.7) L Current Medications: Meds: Laboratory Tests Test 09/09/20 16:45 09/10/20 05:58 Creatine Kinase 54 U/L Troponin I Quantitative 0.018 ng/mL White Blood Count 7.2 x10^3/uL Red Blood Count 4.29 x10^6/uL Hemoglobin 13.4 g/dL Hematocrit 40.0 % Mean Corpuscular Volume 93 fL Mean Corpuscular Hemoglobin 31 pg Mean Corpuscular Hemoglobin Concent 33 g/dL Red Cell Distribution Width 14.5 % Platelet Count 144 x10^3/uL Neutrophils (%) (Auto) 43 % Lymphocytes (%) (Auto) 42 % Monocytes (%) (Auto) 11 % Eosinophils (%) (Auto) 4 % Basophils (%) (Auto) 1 % Neutrophils # (Auto) 3.1 x10^3uL Lymphocytes # (Auto) 3.0 x10^3/uL Monocytes # (Auto) 0.8 x10^3/uL Eosinophils # (Auto) 0.3 x10^3/uL Basophils # (Auto) 0.1 x10^3/uL Sodium Level 142 mmol/L Potassium Level 3.4 mmol/L Chloride Level 107 mmol/L Carbon Dioxide Level 29 mmol/L Anion Gap 6 Blood Urea Nitrogen 16 mg/dL Creatinine 0.9 mg/dL Estimated GFR (Cockcroft-Gault) 83.4 BUN/Creatinine Ratio 18 Glucose Level 102 mg/dL Calcium Level 8.5 mg/dL Total Bilirubin 0.7 mg/dL Aspartate Amino Transf (AST/SGOT) 12 U/L Alanine Aminotransferase (ALT/SGPT) 12 U/L Alkaline Phosphatase 62 U/L Total Protein 6.4 g/dL Albumin 2.9 g/dL Albumin/Globulin Ratio 0.8 Current Medications Medications (Trade) Dose Ordered Sig/Gloria Route PRN Reason Start Time Stop Time Status Last Admin Dose Admin Acetaminophen (Tylenol) 500 mg HS PO 09/01/20 21:00 09/09/20 20:58 Apixaban (Eliquis) 5 mg BID PO 09/01/20 21:00 09/09/20 20:56 Bumetanide (Bumex) 1 mg DAILY PO 09/02/20 09:00 09/08/20 12:01 DC 09/08/20 08:01 Carbidopa/Levodopa (Sinemet 10/100) 0.5 tab [id number] PO 09/01/20 17:00 09/09/20 20:56 Diclofenac Sodium (Voltaren) 1 camilla PRN BID PRN TP MUSCLE PAIN 09/01/20 15:30 Divalproex Sodium (Depakote Sprinkles) 125 mg DAILY PO 09/02/20 09:00 09/02/20 09:00 DC 09/02/20 08:22 Divalproex Sodium (Depakote Er) 500 mg QHS PO 09/01/20 21:00 09/09/20 20:58 Docusate Sodium (Colace) 100 mg DAILY PO 09/02/20 09:00 09/09/20 08:34 Gabapentin (Neurontin) 300 mg HS PO 09/01/20 21:00 09/09/20 20:57 Ibuprofen (Motrin) 400 mg PRN Q8HRS PRN PO PAIN 09/01/20 15:30 UNV Levothyroxine Sodium (Synthroid) 25 mcg DAILYAC PO 09/02/20 07:30 09/01/20 19:50 DC Magnesium Hydroxide (Milk Of Magnesia) 2,400 mg PRN QHS PRN PO CONSTIPATION, 2ND CHOICE 09/01/20 15:30 09/04/20 05:12 Memantine (Namenda) 10 mg [id number] PO 09/01/20 16:30 09/09/20 17:09 Metoprolol Succinate (Toprol Xl) 12.5 mg BID PO 09/01/20 21:00 09/09/20 20:57 Olanzapine (ZyPREXA ZYDIS) 5 mg PRN Q12HR PRN PO ANXIETY / AGITATION 09/01/20 15:30 Polyethylene Glycol (miraLAX) 17 gm DAILY PO 09/02/20 09:00 09/09/20 08:34 Polyethylene Glycol (miraLAX) 17 gm PRN DAILY PRN PO CONSTIPATION, 1ST CHOICE 09/01/20 15:30 Potassium Chloride (Klor-Con) 20 meq BID PO 09/01/20 21:00 09/08/20 12:01 DC 09/08/20 08:01 Risperidone (RisperDAL) 0.5 mg TID PO 09/01/20 21:00 09/09/20 20:58 Rivastigmine (Exelon 13.3mg) 1 patch DAILY TD 09/02/20 09:00 09/09/20 08:34 Senna/Docusate Sodium (Senna Plus) 1 tab DAILY PO 09/02/20 09:00 09/09/20 08:33 Sertraline HCl (Zoloft) 50 mg DAILY PO 09/02/20 09:00 09/02/20 16:48 DC 09/02/20 08:22 Tamsulosin HCl (Flomax) 0.4 mg DAILY PO 09/02/20 09:00 09/09/20 08:33 Ascorbic Acid (Vitamin C) 500 mg DAILY PO 09/02/20 09:00 09/09/20 08:33 Atorvastatin Calcium (Lipitor) 40 mg QHS PO 09/01/20 21:00 09/09/20 20:58 Non-Formulary Medication (Capsaicin/ Menthol (Salonpas Gel-Patch Hot)) 1 each HS TP 09/01/20 21:00 UNV Chlorhexidine Gluconate (Peridex) 15 ml BID SWSP 09/01/20 21:00 09/09/20 20:53 Multi-Ingred Cream/Lotion/Oil/ Oint (Hydrocerin) 1 camilla PRN BID PRN TP dry skin 09/01/20 16:45 Melatonin (Melatonin) 3 mg HS PO 09/01/20 21:00 09/09/20 20:59 Non-Formulary Medication (Menthol (Biofreeze)) 1 camilla PRN TID PRN TOP MUSCLE PAIN 09/01/20 15:30 UNV Cyclobenzaprine HCl (Flexeril) 10 mg PRN TID PRN PO low back pain 09/01/20 17:00 09/07/20 20:27 Oxybutynin Chloride (Ditropan) 5 mg BID PO 09/01/20 21:00 09/09/20 20:54 Timolol Maleate (Timoptic 0.5% Ophth) 1 drop BID OU 09/01/20 21:00 09/09/20 20:53 Multi-Ingredient Ointment (Analgesic [place]) 1 camilla PRN QID PRN TP MUSCLE PAIN 09/01/20 16:15 Cancel Al Hydroxide/Mg Hydroxide (Mylanta Plus Xs) 15 ml PRN AFTMEALHC PRN PO DYSPEPSIA 09/01/20 16:15 Levothyroxine Sodium (Synthroid) 25 mcg DAILY06 PO 09/02/20 06:00 09/10/20 05:16 Divalproex Sodium (Depakote Er) 125 mg DAILY PO 09/02/20 09:00 Cancel Sertraline HCl (Zoloft) 75 mg DAILY PO 09/03/20 09:00 09/05/20 11:00 DC 09/05/20 07:45 Sertraline HCl (Zoloft) 100 mg DAILY PO 09/06/20 09:00 09/09/20 08:33 Divalproex Sodium (Depakote Sprinkles) 125 mg DAILY PO 09/03/20 09:00 09/04/20 17:23 DC 09/04/20 10:52 Divalproex Sodium (Depakote Sprinkles) 250 mg DAILY PO 09/05/20 09:00 09/09/20 08:34 Bumetanide (Bumex) 2 mg DAILY PO 09/09/20 09:00 09/09/20 08:33 Potassium Chloride (Klor-Con) 20 meq TID PO 09/08/20 14:00 09/09/20 20:55 Bumetanide (Bumex) 1 mg 1X ONCE PO 09/08/20 14:00 09/08/20 14:01 DC 09/08/20 14:00 Current Medications Medications (Trade) Dose Ordered Sig/Gloria Route PRN Reason Start Time Stop Time Status Last Admin Dose Admin Bumetanide (Bumex) 2 mg DAILY PO 09/09/20 09:00 09/09/20 08:33 I have reviewed the current psychotropics carefully including drug interactions. Risk benefit ratio favors no change other than as noted in my dictated progress note. Diagnosis: Problems: (1) Anxiety disorder (2) Impulse control disorder (3) Lewy body dementia with behavioral disturbance (4) Dementia, vascular, with delusions (5) Dementia in Alzheimer's disease with delusions (6) Major neurocognitive disorder (7) Major depressive disorder with psychotic features (8) Parkinson's disease CAMERON ROSAS MD Sep 10, 2020 08:18
[2020-09-10] MEDS: RIVASTIGMINE 13.3MG PATCH. TD SCH (09:00)
[2020-09-10] MEDS: DIVALPROEX 125 MG CAP.SPRINK PO SCH (10:33)
[2020-09-10] MEDS: DOCUSATE SODIUM 100 MG CAPSULE PO SCH (10:33)
[2020-09-10] MEDS: BUMETANIDE 1 MG TABLET PO SCH (10:33)
[2020-09-10] MEDS: METOPROLOL SUCC 24HR ER 25 MG TAB.ER.24H. PO SCH ×2 (10:33→20:35)
[2020-09-10] MEDS: APIXABAN 5 MG TABLET. PO SCH ×2 (10:34→20:36)
[2020-09-10] MEDS: MEMANTINE 10 MG TABLET. PO SCH ×2 (10:34→16:24)
[2020-09-10] MEDS: TAMSULOSIN 0.4 MG CAP.ER.24H. PO SCH (10:34)
[2020-09-10] MEDS: ASCORBIC ACID 500 MG TABLET PO SCH (10:34)
[2020-09-10] MEDS: OXYBUTYNIN CHLORIDE 5 MG TABLET PO SCH ×2 (10:34→20:34)
[2020-09-10] MEDS: CARBIDOPA/LEVODOPA 10/100MG TABLET PO SCH ×4 (10:34→20:35)
[2020-09-10] MEDS: SENNOSIDES/DOCUSATE 8.6/50MG TABLET. PO SCH (10:34)
[2020-09-10] MEDS: risperiDONE 0.5 MG TABLET. PO SCH ×3 (10:34→20:34)
[2020-09-10] MEDS: CHLORHEXIDINE 0.12% 15 ML MOUTHWASH. SWSP SCH ×2 (10:34→20:34)
[2020-09-10] MEDS: SERTRALINE 100 MG TABLET. PO SCH (10:34)
[2020-09-10] MEDS: TIMOLOL 0.5% OPHTH SOLUTION 5ML BOTTLE. OU SCH ×2 (10:35→20:34)
[2020-09-10] MEDS: POLYETHYLENE GLYCOL 3350 17 GM PACKET. PO SCH (10:35)
[2020-09-10] MEDS: POTASSIUM CHLORIDE 20 MEQ TABLET.ER. PO SCH ×3 (10:35→20:36)
--- NOTE | 2020-09-10 15:03 | TX PLAN ---
Interdisciplinary Tx Plan Admission Information Sep 01, 2020 at 14:55 Legal Status (on Admission): Voluntary DPOA/Guardian Name: Margy Stinson Contact Other Contact Name: Rosalba Lopez Other Contact Verified Code Status: Full Code Allergies: Coded Allergies: No Known Drug Allergies (Unverified , 09/01/20) Diagnoses Primary Diagnosis: Lewy Body Dementia, Major Neurocognitive D/O with BD Reasons for Admission: Aggressive, Hallucinations, Confusion/Disoriented Problem in Patient's Words: He needs his medications adjusted. Additional Admission Comments: According to the intake, increased confusion, called 911 about missing kids, hallucinationg, labile behaviors, aggressive-pumping fist at peers. Problems Active Problems: Confusion Hallucination Inactive Problems: Medication Management Pt Strengths/Limitations Ability for [place]: Poor Cognitive Functioning/Ability: Fair Communication Skills/Ability: Fair Financial Resources: Good Insight/Judgement: Poor Intellectual Ability: Fair Physical Health: Poor Social Skills: Fair Stability in Family: Good Stability in School/Work: Poor Verbal Skills: Good Discharge Criteria Discharge Criteria: Adequate arrangements @DC, Improved behavior, Improved mood/thought Preliminary Discharge Plan Preliminary DC Plan: Current Living Arrange. Special Precautions Fall Risk: Low Initial D/C Plan Pt to return to [facility] Identified Discharge Needs: Continued psych services Currently Utilized Resources Currently Utilized Resources/P: Primary Care Physician Referrals Community Resources: Neurology follow-up Psychiatric services Identified Problems/Hx/Goals Objectives/Short-Term Goals Short Term Goals: Dec. Aggression, Dec. Hallucination/Delus, Dec. Outbursts, Promote Coping Skill Short Term Goals in Patient's: "I thought I was doing okay". Interventions/Frequency Staff Interventions/Frequency&: Psychiatrist to asses pt at least 3x per week for medication management. Social Work to assess pt at least 2x per week to identify barriers surrounding care and discharge planning. Nursing to complete 15 minute checks daily, assess behaviors and medication effects. 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 Pt is retired Education: Pt attended and received his Bachelors in Anthropology, Masters in Management and then attended school for respiratory therapy. Community Follow-up Primary Care Physician Updates to Memory Care facility Community Provider/Family Inpu: Pt was doing well for sometime. It was just evident that with his increase in hallucinations, that he needed an evaluation for a potential increase in his medications. 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 Pt is eating roughly 75% of meals and sleeping on average 7.75 hours at night. Pt is pleasant, cooperative and compliant with medication and cares. Pt does have some delusions and does report them to his when she calls. Pt felt that he does have an increase in delusions, but also realizes that it could be the time of day that she calls when he's reporting them. Pt told his that he woke up in the basement on a gurney and was able to get out of the basement by surfing on the gurney. Pt has been sleeping in longer than normal, but no major changes in labs or vital signs have been noted. Pt will return to [facility] once stable. SARA VIVAS Sep 10, 2020 15:03
[2020-09-10 16:21] VITALS: BP 93/60
[2020-09-10 20:33] VITALS: BP 125/79
[2020-09-10] MEDS: DIVALPROEX ER 500 MG TAB.ER.24H PO SCH (20:34)
[2020-09-10] MEDS: ATORVASTATIN CALCIUM 20 MG TABLET PO SCH (20:36)
[2020-09-10] MEDS: ACETAMINOPHEN 500 MG TABLET PO SCH (20:36)
[2020-09-10] MEDS: GABAPENTIN 300 MG CAPSULE. PO SCH (20:36)
[2020-09-10] MEDS: MELATONIN 3 MG TABLET PO SCH (20:36)
--- NOTE | 2020-09-10 21:02 | PDOC ---
Exam Note: Michael Note: Please also refer to the separate dictated note~for this date of service dictated separately.~Patient seen individually. Discussed the patient with Nursing staff reviewed the chart.~Reviewed interim history and current functioning. Reviewed vital signs,~Labs/ Radiology~and current medications noted below. Continue current treatment with the changes noted in the dictated addendum note Assessment: Vital Signs/I&O: Vital Signs Date Time Temp Pulse Resp B/P (MAP) Pulse Ox O2 Delivery O2 Flow Rate FiO2 09/10/20 20:35 65 125/79 09/10/20 20:33 20 Room Air 09/10/20 16:21 97.9 96 I & O 09/09/20 09/09/20 09/10/20 15:00 23:00 07:00 Intake Total 240 ml 120 ml Balance 240 ml 120 ml Labs: Laboratory Tests Test 09/10/20 05:58 White Blood Count 7.2 x10^3/uL (4.0-11.0) Red Blood Count 4.29 x10^6/uL (4.30-5.70) L Hemoglobin 13.4 g/dL (13.0-17.5) Hematocrit 40.0 % (39.0-53.0) Mean Corpuscular Volume 93 fL (79-100) Mean Corpuscular Hemoglobin 31 pg (25-35) Mean Corpuscular Hemoglobin Concent 33 g/dL (31-37) Red Cell Distribution Width 14.5 % (11.5-14.5) Platelet Count 144 x10^3/uL (140-400) Neutrophils (%) (Auto) 43 % (31-73) Lymphocytes (%) (Auto) 42 % (24-48) Monocytes (%) (Auto) 11 % (0-9) H Eosinophils (%) (Auto) 4 % (0-3) H Basophils (%) (Auto) 1 % (0-3) Neutrophils # (Auto) 3.1 x10^3uL (1.8-7.7) Lymphocytes # (Auto) 3.0 x10^3/uL (1.0-4.8) Monocytes # (Auto) 0.8 x10^3/uL (0.0-1.1) Eosinophils # (Auto) 0.3 x10^3/uL (0.0-0.7) Basophils # (Auto) 0.1 x10^3/uL (0.0-0.2) Sodium Level 142 mmol/L (136-145) Potassium Level 3.4 mmol/L (3.5-5.1) L Chloride Level 107 mmol/L (98-107) Carbon Dioxide Level 29 mmol/L (21-32) Anion Gap 6 (6-14) Blood Urea Nitrogen 16 mg/dL (8-26) Creatinine 0.9 mg/dL (0.7-1.3) Estimated GFR (Cockcroft-Gault) 83.4 BUN/Creatinine Ratio 18 (6-20) Glucose Level 102 mg/dL (70-99) H Calcium Level 8.5 mg/dL (8.5-10.1) Total Bilirubin 0.7 mg/dL (0.2-1.0) Aspartate Amino Transferase (AST) 12 U/L (15-37) L Alanine Aminotransferase (ALT) 12 U/L (16-63) L Alkaline Phosphatase 62 U/L (46-116) Total Protein 6.4 g/dL (6.4-8.2) Albumin 2.9 g/dL (3.4-5.0) L Albumin/Globulin Ratio 0.8 (1.0-1.7) L Current Medications: Meds: Laboratory Tests Test 09/10/20 05:58 White Blood Count 7.2 x10^3/uL Red Blood Count 4.29 x10^6/uL Hemoglobin 13.4 g/dL Hematocrit 40.0 % Mean Corpuscular Volume 93 fL Mean Corpuscular Hemoglobin 31 pg Mean Corpuscular Hemoglobin Concent 33 g/dL Red Cell Distribution Width 14.5 % Platelet Count 144 x10^3/uL Neutrophils (%) (Auto) 43 % Lymphocytes (%) (Auto) 42 % Monocytes (%) (Auto) 11 % Eosinophils (%) (Auto) 4 % Basophils (%) (Auto) 1 % Neutrophils # (Auto) 3.1 x10^3uL Lymphocytes # (Auto) 3.0 x10^3/uL Monocytes # (Auto) 0.8 x10^3/uL Eosinophils # (Auto) 0.3 x10^3/uL Basophils # (Auto) 0.1 x10^3/uL Sodium Level 142 mmol/L Potassium Level 3.4 mmol/L Chloride Level 107 mmol/L Carbon Dioxide Level 29 mmol/L Anion Gap 6 Blood Urea Nitrogen 16 mg/dL Creatinine 0.9 mg/dL Estimated GFR (Cockcroft-Gault) 83.4 BUN/Creatinine Ratio 18 Glucose Level 102 mg/dL Calcium Level 8.5 mg/dL Total Bilirubin 0.7 mg/dL Aspartate Amino Transf (AST/SGOT) 12 U/L Alanine Aminotransferase (ALT/SGPT) 12 U/L Alkaline Phosphatase 62 U/L Total Protein 6.4 g/dL Albumin 2.9 g/dL Albumin/Globulin Ratio 0.8 Current Medications Medications (Trade) Dose Ordered Sig/Gloria Route PRN Reason Start Time Stop Time Status Last Admin Dose Admin Acetaminophen (Tylenol) 500 mg HS PO 09/01/20 21:00 09/10/20 20:36 Apixaban (Eliquis) 5 mg BID PO 09/01/20 21:00 09/10/20 20:36 Bumetanide (Bumex) 1 mg DAILY PO 09/02/20 09:00 09/08/20 12:01 DC 09/08/20 08:01 Carbidopa/Levodopa (Sinemet 10/100) 0.5 tab [id number] PO 09/01/20 17:00 09/10/20 20:35 Diclofenac Sodium (Voltaren) 1 camilla PRN BID PRN TP MUSCLE PAIN 09/01/20 15:30 Divalproex Sodium (Depakote Sprinkles) 125 mg DAILY PO 09/02/20 09:00 09/02/20 09:00 DC 09/02/20 08:22 Divalproex Sodium (Depakote Er) 500 mg QHS PO 09/01/20 21:00 09/10/20 20:34 Docusate Sodium (Colace) 100 mg DAILY PO 09/02/20 09:00 09/10/20 10:33 Gabapentin (Neurontin) 300 mg HS PO 09/01/20 21:00 09/10/20 20:36 Ibuprofen (Motrin) 400 mg PRN Q8HRS PRN PO PAIN 09/01/20 15:30 UNV Levothyroxine Sodium (Synthroid) 25 mcg DAILYAC PO 09/02/20 07:30 09/01/20 19:50 DC Magnesium Hydroxide (Milk Of Magnesia) 2,400 mg PRN QHS PRN PO CONSTIPATION, 2ND CHOICE 09/01/20 15:30 09/04/20 05:12 Memantine (Namenda) 10 mg [id number] PO 09/01/20 16:30 09/10/20 16:24 Metoprolol Succinate (Toprol Xl) 12.5 mg BID PO 09/01/20 21:00 09/10/20 20:35 Olanzapine (ZyPREXA ZYDIS) 5 mg PRN Q12HR PRN PO ANXIETY / AGITATION 09/01/20 15:30 Polyethylene Glycol (miraLAX) 17 gm DAILY PO 09/02/20 09:00 09/10/20 10:35 Polyethylene Glycol (miraLAX) 17 gm PRN DAILY PRN PO CONSTIPATION, 1ST CHOICE 09/01/20 15:30 Potassium Chloride (Klor-Con) 20 meq BID PO 09/01/20 21:00 09/08/20 12:01 DC 09/08/20 08:01 Risperidone (RisperDAL) 0.5 mg TID PO 09/01/20 21:00 09/10/20 20:34 Rivastigmine (Exelon 13.3mg) 1 patch DAILY TD 09/02/20 09:00 09/10/20 09:00 Senna/Docusate Sodium (Senna Plus) 1 tab DAILY PO 09/02/20 09:00 09/10/20 10:34 Sertraline HCl (Zoloft) 50 mg DAILY PO 09/02/20 09:00 09/02/20 16:48 DC 09/02/20 08:22 Tamsulosin HCl (Flomax) 0.4 mg DAILY PO 09/02/20 09:00 09/10/20 10:34 Ascorbic Acid (Vitamin C) 500 mg DAILY PO 09/02/20 09:00 09/10/20 10:34 Atorvastatin Calcium (Lipitor) 40 mg QHS PO 09/01/20 21:00 09/10/20 20:36 Non-Formulary Medication (Capsaicin/ Menthol (Salonpas Gel-Patch Hot)) 1 each HS TP 09/01/20 21:00 UNV Chlorhexidine Gluconate (Peridex) 15 ml BID SWSP 09/01/20 21:00 09/10/20 20:34 Multi-Ingred Cream/Lotion/Oil/ Oint (Hydrocerin) 1 camilla PRN BID PRN TP dry skin 09/01/20 16:45 Melatonin (Melatonin) 3 mg HS PO 09/01/20 21:00 09/10/20 20:36 Non-Formulary Medication (Menthol (Biofreeze)) 1 camilla PRN TID PRN TOP MUSCLE PAIN 09/01/20 15:30 UNV Cyclobenzaprine HCl (Flexeril) 10 mg PRN TID PRN PO low back pain 09/01/20 17:00 09/07/20 20:27 Oxybutynin Chloride (Ditropan) 5 mg BID PO 09/01/20 21:00 09/10/20 20:34 Timolol Maleate (Timoptic 0.5% Oph) 1 drop BID OU 09/01/20 21:00 09/10/20 20:34 Multi-Ingredient Ointment (Analgesic [place]) 1 camilla PRN QID PRN TP MUSCLE PAIN 09/01/20 16:15 Cancel Al Hydroxide/Mg Hydroxide (Mylanta Plus Xs) 15 ml PRN AFTMEALHC PRN PO DYSPEPSIA 09/01/20 16:15 Levothyroxine Sodium (Synthroid) 25 mcg DAILY06 PO 09/02/20 06:00 09/10/20 05:16 Divalproex Sodium (Depakote Er) 125 mg DAILY PO 09/02/20 09:00 Cancel Sertraline HCl (Zoloft) 75 mg DAILY PO 09/03/20 09:00 09/05/20 11:00 DC 09/05/20 07:45 Sertraline HCl (Zoloft) 100 mg DAILY PO 09/06/20 09:00 09/10/20 10:34 Divalproex Sodium (Depakote Sprinkles) 125 mg DAILY PO 09/03/20 09:00 09/04/20 17:23 DC 09/04/20 10:52 Divalproex Sodium (Depakote Sprinkles) 250 mg DAILY PO 09/05/20 09:00 09/10/20 10:33 Bumetanide (Bumex) 2 mg DAILY PO 09/09/20 09:00 09/10/20 10:33 Potassium Chloride (Klor-Con) 20 meq TID PO 09/08/20 14:00 09/10/20 20:36 Bumetanide (Bumex) 1 mg 1X ONCE PO 09/08/20 14:00 09/08/20 14:01 DC 09/08/20 14:00 I have reviewed the current psychotropics carefully including drug interactions. Risk benefit ratio favors no change other than as noted in my dictated progress note. Diagnosis: Problems: (1) Anxiety disorder (2) Impulse control disorder (3) Lewy body dementia with behavioral disturbance (4) Dementia, vascular, with delusions (5) Dementia in Alzheimer's disease with delusions (6) Major neurocognitive disorder (7) Major depressive disorder with psychotic features CAMERON ROSAS MD Sep 10, 2020 21:02
[2020-09-11] MEDS: LEVOTHYROXINE 25 MCG TABLET. PO SCH (05:13)
[2020-09-11 06:31] VITALS: BP 133/80
[2020-09-11] MEDS: CHLORHEXIDINE 0.12% 15 ML MOUTHWASH. SWSP SCH ×2 (09:00→19:52)
[2020-09-11] MEDS: POLYETHYLENE GLYCOL 3350 17 GM PACKET. PO SCH (09:00)
[2020-09-11] MEDS: CARBIDOPA/LEVODOPA 10/100MG TABLET PO SCH ×4 (09:00→19:54)
[2020-09-11] MEDS: TIMOLOL 0.5% OPHTH SOLUTION 5ML BOTTLE. OU SCH ×2 (09:00→19:52)
[2020-09-11] MEDS: TAMSULOSIN 0.4 MG CAP.ER.24H. PO SCH (10:46)
[2020-09-11] MEDS: risperiDONE 0.5 MG TABLET. PO SCH ×3 (10:46→19:54)
[2020-09-11] MEDS: DOCUSATE SODIUM 100 MG CAPSULE PO SCH (10:46)
[2020-09-11] MEDS: MEMANTINE 10 MG TABLET. PO SCH ×2 (10:46→16:00)
[2020-09-11] MEDS: RIVASTIGMINE 13.3MG PATCH. TD SCH (10:46)
[2020-09-11] MEDS: SENNOSIDES/DOCUSATE 8.6/50MG TABLET. PO SCH (10:46)
[2020-09-11] MEDS: DIVALPROEX 125 MG CAP.SPRINK PO SCH (10:47)
[2020-09-11] MEDS: POTASSIUM CHLORIDE 20 MEQ TABLET.ER. PO SCH ×3 (10:47→19:55)
[2020-09-11] MEDS: METOPROLOL SUCC 24HR ER 25 MG TAB.ER.24H. PO SCH ×2 (10:47→19:53)
[2020-09-11] MEDS: APIXABAN 5 MG TABLET. PO SCH ×2 (10:48→19:53)
[2020-09-11] MEDS: SERTRALINE 100 MG TABLET. PO SCH (10:48)
[2020-09-11] MEDS: ASCORBIC ACID 500 MG TABLET PO SCH (10:48)
[2020-09-11] MEDS: OXYBUTYNIN CHLORIDE 5 MG TABLET PO SCH ×2 (10:48→19:54)
[2020-09-11] MEDS: BUMETANIDE 1 MG TABLET PO SCH (10:48)
[2020-09-11 15:31] VITALS: BP 112/65
--- NOTE | 2020-09-11 16:53 | EKG ---
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
[2020-09-11] MEDS: ATORVASTATIN CALCIUM 20 MG TABLET PO SCH (19:53)
[2020-09-11] MEDS: MELATONIN 3 MG TABLET PO SCH (19:53)
[2020-09-11] MEDS: GABAPENTIN 300 MG CAPSULE. PO SCH (19:54)
[2020-09-11] MEDS: DIVALPROEX ER 500 MG TAB.ER.24H PO SCH (19:54)
[2020-09-11] MEDS: ACETAMINOPHEN 500 MG TABLET PO SCH (19:55)
--- NOTE | 2020-09-11 20:57 | PDOC ---
Exam Note: Michael Note: Please also refer to the separate dictated note~for this date of service dictated separately.~Patient seen individually. Discussed the patient with Nursing staff reviewed the chart.~Reviewed interim history and current functioning. Reviewed vital signs,~Labs/ Radiology~and current medications noted below. Continue current treatment with the changes noted in the dictated addendum note Assessment: Vital Signs/I&O: Vital Signs Date Time Temp Pulse Resp B/P (MAP) Pulse Ox O2 Delivery O2 Flow Rate FiO2 09/11/20 19:53 70 112/65 09/11/20 15:31 96.4 18 96 09/11/20 06:31 Room Air I & O 09/10/20 09/10/20 09/11/20 15:00 23:00 07:00 Intake Total 480 ml 480 ml Balance 480 ml 480 ml Current Medications: Meds: Current Medications Medications (Trade) Dose Ordered Sig/Gloria Route PRN Reason Start Time Stop Time Status Last Admin Dose Admin Acetaminophen (Tylenol) 500 mg HS PO 09/01/20 21:00 09/11/20 19:55 Apixaban (Eliquis) 5 mg BID PO 09/01/20 21:00 09/11/20 19:53 Bumetanide (Bumex) 1 mg DAILY PO 09/02/20 09:00 09/08/20 12:01 DC 09/08/20 08:01 Carbidopa/Levodopa (Sinemet 10/100) 0.5 tab [id number] PO 09/01/20 17:00 09/11/20 19:54 Diclofenac Sodium (Voltaren) 1 camilla PRN BID PRN TP MUSCLE PAIN 09/01/20 15:30 Divalproex Sodium (Depakote Sprinkles) 125 mg DAILY PO 09/02/20 09:00 09/02/20 09:00 DC 09/02/20 08:22 Divalproex Sodium (Depakote Er) 500 mg QHS PO 09/01/20 21:00 09/11/20 19:54 Docusate Sodium (Colace) 100 mg DAILY PO 09/02/20 09:00 09/11/20 10:46 Gabapentin (Neurontin) 300 mg HS PO 09/01/20 21:00 09/11/20 19:54 Ibuprofen (Motrin) 400 mg PRN Q8HRS PRN PO PAIN 09/01/20 15:30 UNV Levothyroxine Sodium (Synthroid) 25 mcg DAILYAC PO 09/02/20 07:30 09/01/20 19:50 DC Magnesium Hydroxide (Milk Of Magnesia) 2,400 mg PRN QHS PRN PO CONSTIPATION, 2ND CHOICE 09/01/20 15:30 09/04/20 05:12 Memantine (Namenda) 10 mg [id number] PO 09/01/20 16:30 09/11/20 16:00 Metoprolol Succinate (Toprol Xl) 12.5 mg BID PO 09/01/20 21:00 09/11/20 19:53 Olanzapine (ZyPREXA ZYDIS) 5 mg PRN Q12HR PRN PO ANXIETY / AGITATION 09/01/20 15:30 Polyethylene Glycol (miraLAX) 17 gm DAILY PO 09/02/20 09:00 09/10/20 10:35 Polyethylene Glycol (miraLAX) 17 gm PRN DAILY PRN PO CONSTIPATION, 1ST CHOICE 09/01/20 15:30 Potassium Chloride (Klor-Con) 20 meq BID PO 09/01/20 21:00 09/08/20 12:01 DC 09/08/20 08:01 Risperidone (RisperDAL) 0.5 mg TID PO 09/01/20 21:00 09/11/20 19:54 Rivastigmine (Exelon 13.3mg) 1 patch DAILY TD 09/02/20 09:00 09/11/20 10:46 Senna/Docusate Sodium (Senna Plus) 1 tab DAILY PO 09/02/20 09:00 09/11/20 10:46 Sertraline HCl (Zoloft) 50 mg DAILY PO 09/02/20 09:00 09/02/20 16:48 DC 09/02/20 08:22 Tamsulosin HCl (Flomax) 0.4 mg DAILY PO 09/02/20 09:00 09/11/20 10:46 Ascorbic Acid (Vitamin C) 500 mg DAILY PO 09/02/20 09:00 09/11/20 10:48 Atorvastatin Calcium (Lipitor) 40 mg QHS PO 09/01/20 21:00 09/11/20 19:53 Non-Formulary Medication (Capsaicin/ Menthol (Salonpas Gel-Patch Hot)) 1 each HS TP 1/23/21 21:00 UNV Chlorhexidine Gluconate (Peridex) 15 ml BID SWSP 09/01/20 21:00 09/11/20 19:52 Multi-Ingred Cream/Lotion/Oil/ Oint (Hydrocerin) 1 camilla PRN BID PRN TP dry skin 09/01/20 16:45 Melatonin (Melatonin) 3 mg HS PO 09/01/20 21:00 09/11/20 19:53 Non-Formulary Medication (Menthol (Biofreeze)) 1 camilla PRN TID PRN TOP MUSCLE PAIN 09/01/20 15:30 UNV Cyclobenzaprine HCl (Flexeril) 10 mg PRN TID PRN PO low back pain 09/01/20 17:00 09/07/20 20:27 Oxybutynin Chloride (Ditropan) 5 mg BID PO 09/01/20 21:00 09/11/20 19:54 Timolol Maleate (Timoptic 0.5% Oph) 1 drop BID OU 09/01/20 21:00 09/11/20 19:52 Multi-Ingredient Ointment (Analgesic Elmer) 1 camilla PRN QID PRN TP MUSCLE PAIN 09/01/20 16:15 Cancel Al Hydroxide/Mg Hydroxide (Mylanta Plus Xs) 15 ml PRN AFTMEALHC PRN PO DYSPEPSIA 09/01/20 16:15 Levothyroxine Sodium (Synthroid) 25 mcg DAILY06 PO 09/02/20 06:00 09/11/20 05:13 Divalproex Sodium (Depakote Er) 125 mg DAILY PO 09/02/20 09:00 Cancel Sertraline HCl (Zoloft) 75 mg DAILY PO 09/03/20 09:00 09/05/20 11:00 DC 09/05/20 07:45 Sertraline HCl (Zoloft) 100 mg DAILY PO 09/06/20 09:00 09/11/20 10:48 Divalproex Sodium (Depakote Sprinkles) 125 mg DAILY PO 09/03/20 09:00 09/04/20 17:23 DC 09/04/20 10:52 Divalproex Sodium (Depakote Sprinkles) 250 mg DAILY PO 09/05/20 09:00 09/11/20 10:47 Bumetanide (Bumex) 2 mg DAILY PO 09/09/20 09:00 09/11/20 10:48 Potassium Chloride (Klor-Con) 20 meq TID PO 09/08/20 14:00 09/11/20 19:55 Bumetanide (Bumex) 1 mg 1X ONCE PO 09/08/20 14:00 09/08/20 14:01 DC 09/08/20 14:00 I have reviewed the current psychotropics carefully including drug interactions. Risk benefit ratio favors no change other than as noted in my dictated progress note. Diagnosis: Problems: (1) Anxiety disorder (2) Impulse control disorder (3) Lewy body dementia with behavioral disturbance (4) Dementia, vascular, with delusions (5) Dementia in Alzheimer's disease with delusions (6) Major neurocognitive disorder (7) Major depressive disorder with psychotic features (8) Parkinson's disease CAMERON ROSAS MD Sep 11, 2020 20:57
[2020-09-12] MEDS: LEVOTHYROXINE 25 MCG TABLET. PO SCH (05:02)
[2020-09-12 06:21] VITALS: BP 154/88
--- NOTE | 2020-09-12 08:43 | PDOC ---
Exam Note: Michael Note: This note is a late entry for 09/10/2020 covers elements not covered in my initial note. Subjective: The patient was seen face to face in the morning of 09/10/2020 for a treatment team meeting with Karina Blanton, Lissy Delgado and Fabiola (health and social care teacher), Serina Cosme, activity therapy and Dionne BRASHER. Also the patients Margy attended the conference. Discussed with nursing staff, reviewed the chart. He slept 7-1/2 hours previous night. The patients remarked that the patients outpatient back joiner had suggested using spironolactone as a potassium-sparing diuretic instead of his current regimen since his potassium still remains low. We will defer to Dr. Villeda. Additionally, was able to share some of the symptoms prompting admission including his confusion, active hallucinations, mood lability, threatening behavior. The patient did have some chest pain over the weekend. Dr. Villeda worked this up and everything was negat mayte per Dionne RN. Also the had concerns about the patient getting his second vaccination for COVID due in the next few days and social work staff will check with the administration whether the could get his vaccination from the [facility] to be given here. The patient was more compliant with his morning medications. Also discussed with Osiris BRASHER in the evening. Review of Systems: Ambulation impaired secondary to Parkinsons. No CV, , pulmonary, eye system symptoms on review. Mental Status Exam: The patient is oriented to himself and situation. He has been pleasant, cooperative, gets a little psychotic, more confused at times, consistent with his diagnosis of Lewy body dementia. I met with him in his room. Speech has some latency. Often response is monosyllabic, coherent. Abstraction is fair. Computation is impaired. Language function is intact. Mood and affect somewhat withdrawn, less psychotic. Laboratory Data: Reviewed. Impression: Major depressive disorder rule out psychotic features. Lewy body dementia early with delusion, depression. Anxiety disorder unspecified. Impulse control disorder unspecified. Plan: Continue current psychotropics from initial note. We are adjusting these gradually depending on his progress. Continue Depakote. Maintain Risperdal. We will consult Dr. [facility] to see if Sinemet needs to be adjusted to compensate for his intermittent psychotic symptoms. Assessment: Vital Signs/I&O: Vital Signs Date Time Temp Pulse Resp B/P (MAP) Pulse Ox O2 Delivery O2 Flow Rate FiO2 09/12/20 06:21 97.7 63 16 154/88 (110) 93 Room Air I & O 09/11/20 09/11/20 09/12/20 15:00 23:00 07:00 Intake Total 720 ml 480 ml Balance 720 ml 480 ml Current Medications: Meds: Current Medications Medications (Trade) Dose Ordered Sig/Gloria Route PRN Reason Start Time Stop Time Status Last Admin Dose Admin Acetaminophen (Tylenol) 500 mg HS PO 09/01/20 21:00 09/11/20 19:55 Apixaban (Eliquis) 5 mg BID PO 09/01/20 21:00 09/11/20 19:53 Bumetanide (Bumex) 1 mg DAILY PO 09/02/20 09:00 09/08/20 12:01 DC 09/08/20 08:01 Carbidopa/Levodopa (Sinemet 10/100) 0.5 tab [id number] PO 09/01/20 17:00 09/11/20 19:54 Diclofenac Sodium (Voltaren) 1 camilla PRN BID PRN TP MUSCLE PAIN 09/01/20 15:30 Divalproex Sodium (Depakote Sprinkles) 125 mg DAILY PO 09/02/20 09:00 09/02/20 09:00 DC 09/02/20 08:22 Divalproex Sodium (Depakote Er) 500 mg QHS PO 09/01/20 21:00 09/11/20 19:54 Docusate Sodium (Colace) 100 mg DAILY PO 09/02/20 09:00 09/11/20 10:46 Gabapentin (Neurontin) 300 mg HS PO 09/01/20 21:00 09/11/20 19:54 Ibuprofen (Motrin) 400 mg PRN Q8HRS PRN PO PAIN 09/01/20 15:30 UNV Levothyroxine Sodium (Synthroid) 25 mcg DAILYAC PO 09/02/20 07:30 09/01/20 19:50 DC Magnesium Hydroxide (Milk Of Magnesia) 2,400 mg PRN QHS PRN PO CONSTIPATION, 2ND CHOICE 09/01/20 15:30 09/04/20 05:12 Memantine (Namenda) 10 mg [id number] PO 09/01/20 16:30 09/11/20 16:00 Metoprolol Succinate (Toprol Xl) 12.5 mg BID PO 09/01/20 21:00 09/11/20 19:53 Olanzapine (ZyPREXA ZYDIS) 5 mg PRN Q12HR PRN PO ANXIETY / AGITATION 09/01/20 15:30 Polyethylene Glycol (miraLAX) 17 gm DAILY PO 09/02/20 09:00 09/10/20 10:35 Polyethylene Glycol (miraLAX) 17 gm PRN DAILY PRN PO CONSTIPATION, 1ST CHOICE 09/01/20 15:30 Potassium Chloride (Klor-Con) 20 meq BID PO 09/01/20 21:00 09/08/20 12:01 DC 09/08/20 08:01 Risperidone (RisperDAL) 0.5 mg TID PO 09/01/20 21:00 09/11/20 19:54 Rivastigmine (Exelon 13.3mg) 1 patch DAILY TD 09/02/20 09:00 09/11/20 10:46 Senna/Docusate Sodium (Senna Plus) 1 tab DAILY PO 09/02/20 09:00 09/11/20 10:46 Sertraline HCl (Zoloft) 50 mg DAILY PO 09/02/20 09:00 09/02/20 16:48 DC 09/02/20 08:22 Tamsulosin HCl (Flomax) 0.4 mg DAILY PO 09/02/20 09:00 09/11/20 10:46 Ascorbic Acid (Vitamin C) 500 mg DAILY PO 09/02/20 09:00 09/11/20 10:48 Atorvastatin Calcium (Lipitor) 40 mg QHS PO 09/01/20 21:00 09/11/20 19:53 Non-Formulary Medication (Capsaicin/ Menthol (Salonpas Gel-Patch Hot)) 1 each HS TP 09/01/20 21:00 UNV Chlorhexidine Gluconate (Peridex) 15 ml BID SWSP 09/01/20 21:00 09/11/20 19:52 Multi-Ingred Cream/Lotion/Oil/ Oint (Hydrocerin) 1 camilla PRN BID PRN TP dry skin 09/01/20 16:45 Melatonin (Melatonin) 3 mg HS PO 09/01/20 21:00 09/11/20 19:53 Non-Formulary Medication (Menthol (Biofreeze)) 1 camilla PRN TID PRN TOP MUSCLE PAIN 09/01/20 15:30 UNV Cyclobenzaprine HCl (Flexeril) 10 mg PRN TID PRN PO low back pain 09/01/20 17:00 09/07/20 20:27 Oxybutynin Chloride (Ditropan) 5 mg BID PO 09/01/20 21:00 09/11/20 19:54 Timolol Maleate (Timoptic 0.5% Ophth) 1 drop BID OU 09/01/20 21:00 09/11/20 19:52 Multi-Ingredient Ointment (Analgesic [place]) 1 camilla PRN QID PRN TP MUSCLE PAIN 09/01/20 16:15 Cancel Al Hydroxide/Mg Hydroxide (Mylanta Plus Xs) 15 ml PRN AFTMEALHC PRN PO DYSPEPSIA 09/01/20 16:15 Levothyroxine Sodium (Synthroid) 25 mcg DAILY06 PO 09/02/20 06:00 09/12/20 05:02 Divalproex Sodium (Depakote Er) 125 mg DAILY PO 09/02/20 09:00 Cancel Sertraline HCl (Zoloft) 75 mg DAILY PO 09/03/20 09:00 09/05/20 11:00 DC 09/05/20 07:45 Sertraline HCl (Zoloft) 100 mg DAILY PO 09/06/20 09:00 09/11/20 10:48 Divalproex Sodium (Depakote Sprinkles) 125 mg DAILY PO 09/03/20 09:00 09/04/20 17:23 DC 09/04/20 10:52 Divalproex Sodium (Depakote Sprinkles) 250 mg DAILY PO 09/05/20 09:00 09/11/20 10:47 Bumetanide (Bumex) 2 mg DAILY PO 09/09/20 09:00 09/11/20 10:48 Potassium Chloride (Klor-Con) 20 meq TID PO 09/08/20 14:00 09/11/20 19:55 Bumetanide (Bumex) 1 mg 1X ONCE PO 09/08/20 14:00 09/08/20 14:01 DC 09/08/20 14:00 I have reviewed the current psychotropics carefully including drug interactions. Risk benefit ratio favors no change other than as noted in my dictated progress note. Diagnosis: Problems: (1) Anxiety disorder (2) Impulse control disorder (3) Lewy body dementia with behavioral disturbance (4) Dementia, vascular, with delusions (5) Dementia in Alzheimer's disease with delusions (6) Major neurocognitive disorder (7) Major depressive disorder with psychotic features CAMERON ROSAS MD Sep 12, 2020 08:43
[2020-09-12] MEDS: TIMOLOL 0.5% OPHTH SOLUTION 5ML BOTTLE. OU SCH ×2 (09:00→19:53)
--- NOTE | 2020-09-12 09:11 | PDOC ---
Exam Note: Michael Note: This note is a late entry for 09/11/2020 covers elements not covered in my initial note. Subjective: The patient was seen face to face in the evening of 09/11/2020 with Osiris BRASHER. He slept 7-1/2 hours previous night. The patient has been somewhat sedated in the morning. He slept till 10.30 a.m. We will monitor this another day and then decide whether we should eliminate his morning Risperdal or Depakote, which could cause some sedation. Review of Systems: No CV, , pulmonary, eye system symptoms on review. Mental Status Exam: The patient is reasonably oriented. Speech has some latency. Often response is monosyllabic, coherent. Abstraction is fair. Computation is impaired. Language function is intact. Mood and affect somewhat withdrawn. Laboratory Data: Reviewed. Impression: Major depressive disorder rule out psychotic features. Lewy body dementia early with delusion, depression. Anxiety disorder unspecified. Impulse control disorder unspecified. Plan: No change from initial note other than what is noted above. Assessment: Vital Signs/I&O: Vital Signs Date Time Temp Pulse Resp B/P (MAP) Pulse Ox O2 Delivery O2 Flow Rate FiO2 09/12/20 06:21 97.7 63 16 154/88 (110) 93 Room Air I & O 09/11/20 09/11/20 09/12/20 15:00 23:00 07:00 Intake Total 720 ml 480 ml Balance 720 ml 480 ml Current Medications: Meds: Current Medications Medications (Trade) Dose Ordered Sig/Gloria Route PRN Reason Start Time Stop Time Status Last Admin Dose Admin Acetaminophen (Tylenol) 500 mg HS PO 09/01/20 21:00 09/11/20 19:55 Apixaban (Eliquis) 5 mg BID PO 09/01/20 21:00 09/11/20 19:53 Bumetanide (Bumex) 1 mg DAILY PO 09/02/20 09:00 09/08/20 12:01 DC 09/08/20 08:01 Carbidopa/Levodopa (Sinemet 10/100) 0.5 tab [id number] PO 09/01/20 17:00 09/11/20 19:54 Diclofenac Sodium (Voltaren) 1 camilla PRN BID PRN TP MUSCLE PAIN 09/01/20 15:30 Divalproex Sodium (Depakote Sprinkles) 125 mg DAILY PO 09/02/20 09:00 09/02/20 09:00 DC 09/02/20 08:22 Divalproex Sodium (Depakote Er) 500 mg QHS PO 09/01/20 21:00 09/11/20 19:54 Docusate Sodium (Colace) 100 mg DAILY PO 09/02/20 09:00 09/11/20 10:46 Gabapentin (Neurontin) 300 mg HS PO 09/01/20 21:00 09/11/20 19:54 Ibuprofen (Motrin) 400 mg PRN Q8HRS PRN PO PAIN 09/01/20 15:30 UNV Levothyroxine Sodium (Synthroid) 25 mcg DAILYAC PO 09/02/20 07:30 09/01/20 19:50 DC Magnesium Hydroxide (Milk Of Magnesia) 2,400 mg PRN QHS PRN PO CONSTIPATION, 2ND CHOICE 09/01/20 15:30 09/04/20 05:12 Memantine (Namenda) 10 mg [id number] PO 09/01/20 16:30 09/11/20 16:00 Metoprolol Succinate (Toprol Xl) 12.5 mg BID PO 09/01/20 21:00 09/11/20 19:53 Olanzapine (ZyPREXA ZYDIS) 5 mg PRN Q12HR PRN PO ANXIETY / AGITATION 09/01/20 15:30 Polyethylene Glycol (miraLAX) 17 gm DAILY PO 09/02/20 09:00 09/10/20 10:35 Polyethylene Glycol (miraLAX) 17 gm PRN DAILY PRN PO CONSTIPATION, 1ST CHOICE 09/01/20 15:30 Potassium Chloride (Klor-Con) 20 meq BID PO 09/01/20 21:00 09/08/20 12:01 DC 09/08/20 08:01 Risperidone (RisperDAL) 0.5 mg TID PO 09/01/20 21:00 09/11/20 19:54 Rivastigmine (Exelon 13.3mg) 1 patch DAILY TD 09/02/20 09:00 09/11/20 10:46 Senna/Docusate Sodium (Senna Plus) 1 tab DAILY PO 09/02/20 09:00 09/11/20 10:46 Sertraline HCl (Zoloft) 50 mg DAILY PO 09/02/20 09:00 09/02/20 16:48 DC 09/02/20 08:22 Tamsulosin HCl (Flomax) 0.4 mg DAILY PO 09/02/20 09:00 09/11/20 10:46 Ascorbic Acid (Vitamin C) 500 mg DAILY PO 09/02/20 09:00 09/11/20 10:48 Atorvastatin Calcium (Lipitor) 40 mg QHS PO 09/01/20 21:00 09/11/20 19:53 Non-Formulary Medication (Capsaicin/ Menthol (Salonpas Gel-Patch Hot)) 1 each HS TP 09/01/20 21:00 UNV Chlorhexidine Gluconate (Peridex) 15 ml BID SWSP 09/01/20 21:00 09/11/20 19:52 Multi-Ingred Cream/Lotion/Oil/ Oint (Hydrocerin) 1 camilla PRN BID PRN TP dry skin 09/01/20 16:45 Melatonin (Melatonin) 3 mg HS PO 09/01/20 21:00 09/11/20 19:53 Non-Formulary Medication (Menthol (Biofreeze)) 1 camilla PRN TID PRN TOP MUSCLE PAIN 09/01/20 15:30 UNV Cyclobenzaprine HCl (Flexeril) 10 mg PRN TID PRN PO low back pain 09/01/20 17:00 09/07/20 20:27 Oxybutynin Chloride (Ditropan) 5 mg BID PO 09/01/20 21:00 09/11/20 19:54 Timolol Maleate (Timoptic 0.5% [facility]) 1 drop BID OU 09/01/20 21:00 09/11/20 19:52 Multi-Ingredient Ointment (Analgesic [place]) 1 camilla PRN QID PRN TP MUSCLE PAIN 09/01/20 16:15 Cancel Al Hydroxide/Mg Hydroxide (Mylanta Plus Xs) 15 ml PRN AFTMEALHC PRN PO DYSPEPSIA 09/01/20 16:15 Levothyroxine Sodium (Synthroid) 25 mcg DAILY06 PO 09/02/20 06:00 09/12/20 05:02 Divalproex Sodium (Depakote Er) 125 mg DAILY PO 09/02/20 09:00 Cancel Sertraline HCl (Zoloft) 75 mg DAILY PO 09/03/20 09:00 09/05/20 11:00 DC 09/05/20 07:45 Sertraline HCl (Zoloft) 100 mg DAILY PO 09/06/20 09:00 09/11/20 10:48 Divalproex Sodium (Depakote Sprinkles) 125 mg DAILY PO 09/03/20 09:00 09/04/20 17:23 DC 09/04/20 10:52 Divalproex Sodium (Depakote Sprinkles) 250 mg DAILY PO 09/05/20 09:00 09/11/20 10:47 Bumetanide (Bumex) 2 mg DAILY PO 09/09/20 09:00 09/11/20 10:48 Potassium Chloride (Klor-Con) 20 meq TID PO 09/08/20 14:00 09/11/20 19:55 Bumetanide (Bumex) 1 mg 1X ONCE PO 09/08/20 14:00 09/08/20 14:01 DC 09/08/20 14:00 I have reviewed the current psychotropics carefully including drug interactions. Risk benefit ratio favors no change other than as noted in my dictated progress note. Diagnosis: Problems: (1) Anxiety disorder (2) Impulse control disorder (3) Lewy body dementia with behavioral disturbance (4) Dementia, vascular, with delusions (5) Dementia in Alzheimer's disease with delusions (6) Major neurocognitive disorder (7) Major depressive disorder with psychotic features CAMERON ROSAS MD Sep 12, 2020 09:11
[2020-09-12] MEDS: RIVASTIGMINE 13.3MG PATCH. TD SCH (10:05)
[2020-09-12] MEDS: SENNOSIDES/DOCUSATE 8.6/50MG TABLET. PO SCH (10:05)
[2020-09-12] MEDS: risperiDONE 0.5 MG TABLET. PO SCH ×3 (10:06→19:54)
[2020-09-12] MEDS: BUMETANIDE 1 MG TABLET PO SCH (10:06)
[2020-09-12] MEDS: METOPROLOL SUCC 24HR ER 25 MG TAB.ER.24H. PO SCH ×2 (10:07→19:54)
[2020-09-12] MEDS: DOCUSATE SODIUM 100 MG CAPSULE PO SCH (10:07)
[2020-09-12] MEDS: APIXABAN 5 MG TABLET. PO SCH ×2 (10:08→19:53)
[2020-09-12] MEDS: MEMANTINE 10 MG TABLET. PO SCH ×2 (10:08→17:38)
[2020-09-12] MEDS: DIVALPROEX 125 MG CAP.SPRINK PO SCH (10:08)
[2020-09-12] MEDS: POTASSIUM CHLORIDE 20 MEQ TABLET.ER. PO SCH ×3 (10:08→19:53)
[2020-09-12] MEDS: CARBIDOPA/LEVODOPA 10/100MG TABLET PO SCH ×4 (10:08→19:55)
[2020-09-12] MEDS: ASCORBIC ACID 500 MG TABLET PO SCH (10:09)
[2020-09-12] MEDS: OXYBUTYNIN CHLORIDE 5 MG TABLET PO SCH ×2 (10:09→19:53)
[2020-09-12] MEDS: TAMSULOSIN 0.4 MG CAP.ER.24H. PO SCH (10:10)
[2020-09-12] MEDS: SERTRALINE 100 MG TABLET. PO SCH (10:10)
[2020-09-12] MEDS: POLYETHYLENE GLYCOL 3350 17 GM PACKET. PO SCH (10:11)
[2020-09-12] MEDS: CHLORHEXIDINE 0.12% 15 ML MOUTHWASH. SWSP SCH ×2 (10:11→19:54)
[2020-09-12 16:03] VITALS: BP 112/72
[2020-09-12] MEDS: ATORVASTATIN CALCIUM 20 MG TABLET PO SCH (19:54)
[2020-09-12] MEDS: GABAPENTIN 300 MG CAPSULE. PO SCH (19:54)
[2020-09-12] MEDS: DIVALPROEX ER 500 MG TAB.ER.24H PO SCH (19:54)
[2020-09-12] MEDS: ACETAMINOPHEN 500 MG TABLET PO SCH (19:54)
[2020-09-12] MEDS: MELATONIN 3 MG TABLET PO SCH (19:54)
[2020-09-12] MEDS: CYCLOBENZAPRINE 10 MG TABLET. PO PRN (19:55)
--- NOTE | 2020-09-12 20:57 | PDOC ---
Exam Note: Michael Note: Please also refer to the separate dictated note~for this date of service dictated separately.~Patient seen individually. Discussed the patient with Nursing staff reviewed the chart.~Reviewed interim history and current functioning. Reviewed vital signs,~Labs/ Radiology~and current medications noted below. Continue current treatment with the changes noted in the dictated addendum note Assessment: Vital Signs/I&O: Vital Signs Date Time Temp Pulse Resp B/P (MAP) Pulse Ox O2 Delivery O2 Flow Rate FiO2 09/12/20 19:54 77 112/72 09/12/20 16:03 98.9 16 99 09/12/20 06:21 Room Air I & O 09/11/20 09/11/20 09/12/20 14:59 22:59 06:59 Intake Total 720 ml 480 ml Balance 720 ml 480 ml Current Medications: Meds: Current Medications Medications (Trade) Dose Ordered Sig/Gloria Route PRN Reason Start Time Stop Time Status Last Admin Dose Admin Acetaminophen (Tylenol) 500 mg HS PO 09/01/20 21:00 09/12/20 19:54 Apixaban (Eliquis) 5 mg BID PO 09/01/20 21:00 09/12/20 19:53 Bumetanide (Bumex) 1 mg DAILY PO 09/02/20 09:00 09/08/20 12:01 DC 09/08/20 08:01 Carbidopa/Levodopa (Sinemet 10/100) 0.5 tab [id number] PO 09/01/20 17:00 09/12/20 19:55 Diclofenac Sodium (Voltaren) 1 camilla PRN BID PRN TP MUSCLE PAIN 09/01/20 15:30 Divalproex Sodium (Depakote Sprinkles) 125 mg DAILY PO 09/02/20 09:00 09/02/20 09:00 DC 09/02/20 08:22 Divalproex Sodium (Depakote Er) 500 mg QHS PO 09/01/20 21:00 09/12/20 19:54 Docusate Sodium (Colace) 100 mg DAILY PO 09/02/20 09:00 09/12/20 10:07 Gabapentin (Neurontin) 300 mg HS PO 09/01/20 21:00 09/12/20 19:54 Ibuprofen (Motrin) 400 mg PRN Q8HRS PRN PO PAIN 09/01/20 15:30 UNV Levothyroxine Sodium (Synthroid) 25 mcg DAILYAC PO 09/02/20 07:30 09/01/20 19:50 DC Magnesium Hydroxide (Milk Of Magnesia) 2,400 mg PRN QHS PRN PO CONSTIPATION, 2ND CHOICE 09/01/20 15:30 09/04/20 05:12 Memantine (Namenda) 10 mg [id number] PO 09/01/20 16:30 09/12/20 17:38 Metoprolol Succinate (Toprol Xl) 12.5 mg BID PO 09/01/20 21:00 09/12/20 19:54 Olanzapine (ZyPREXA ZYDIS) 5 mg PRN Q12HR PRN PO ANXIETY / AGITATION 09/01/20 15:30 Polyethylene Glycol (miraLAX) 17 gm DAILY PO 09/02/20 09:00 09/12/20 10:11 Polyethylene Glycol (miraLAX) 17 gm PRN DAILY PRN PO CONSTIPATION, 1ST CHOICE 09/01/20 15:30 Potassium Chloride (Klor-Con) 20 meq BID PO 09/01/20 21:00 09/08/20 12:01 DC 09/08/20 08:01 Risperidone (RisperDAL) 0.5 mg TID PO 09/01/20 21:00 09/12/20 19:54 Rivastigmine (Exelon 13.3mg) 1 patch DAILY TD 09/02/20 09:00 09/12/20 10:05 Senna/Docusate Sodium (Senna Plus) 1 tab DAILY PO 09/02/20 09:00 09/12/20 10:05 Sertraline HCl (Zoloft) 50 mg DAILY PO 09/02/20 09:00 09/02/20 16:48 DC 09/02/20 08:22 Tamsulosin HCl (Flomax) 0.4 mg DAILY PO 09/02/20 09:00 09/12/20 10:10 Ascorbic Acid (Vitamin C) 500 mg DAILY PO 09/02/20 09:00 09/12/20 10:09 Atorvastatin Calcium (Lipitor) 40 mg QHS PO 09/01/20 21:00 09/12/20 19:54 Non-Formulary Medication (Capsaicin/ Menthol (Salonpas Gel-Patch Hot)) 1 each HS TP 1/23/21 21:00 UNV Chlorhexidine Gluconate (Peridex) 15 ml BID SWSP 09/01/20 21:00 09/12/20 19:54 Multi-Ingred Cream/Lotion/Oil/ Oint (Hydrocerin) 1 camilla PRN BID PRN TP dry skin 09/01/20 16:45 Melatonin (Melatonin) 3 mg HS PO 09/01/20 21:00 09/12/20 19:54 Non-Formulary Medication (Menthol (Biofreeze)) 1 camilla PRN TID PRN TOP MUSCLE PAIN 09/01/20 15:30 UNV Cyclobenzaprine HCl (Flexeril) 10 mg PRN TID PRN PO low back pain 09/01/20 17:00 09/12/20 19:55 Oxybutynin Chloride (Ditropan) 5 mg BID PO 09/01/20 21:00 09/12/20 19:53 Timolol Maleate (Timoptic 0.5% [facility]) 1 drop BID OU 09/01/20 21:00 09/12/20 19:53 Multi-Ingredient Ointment (Analgesic [place]) 1 camilla PRN QID PRN TP MUSCLE PAIN 09/01/20 16:15 Cancel Al Hydroxide/Mg Hydroxide (Mylanta Plus Xs) 15 ml PRN AFTMEALHC PRN PO DYSPEPSIA 09/01/20 16:15 Levothyroxine Sodium (Synthroid) 25 mcg DAILY06 PO 09/02/20 06:00 09/12/20 05:02 Divalproex Sodium (Depakote Er) 125 mg DAILY PO 09/02/20 09:00 Cancel Sertraline HCl (Zoloft) 75 mg DAILY PO 09/03/20 09:00 09/05/20 11:00 DC 09/05/20 07:45 Sertraline HCl (Zoloft) 100 mg DAILY PO 09/06/20 09:00 09/12/20 18:22 DC 09/12/20 10:10 Divalproex Sodium (Depakote Sprinkles) 125 mg DAILY PO 09/03/20 09:00 09/04/20 17:23 DC 09/04/20 10:52 Divalproex Sodium (Depakote Sprinkles) 250 mg DAILY PO 09/05/20 09:00 09/12/20 10:08 Bumetanide (Bumex) 2 mg DAILY PO 09/09/20 09:00 09/12/20 10:06 Potassium Chloride (Klor-Con) 20 meq TID PO 09/08/20 14:00 09/12/20 19:53 Bumetanide (Bumex) 1 mg 1X ONCE PO 09/08/20 14:00 09/08/20 14:01 DC 09/08/20 14:00 Bupropion HCl (Wellbutrin Xl) 150 mg DAILY PO 09/13/20 09:00 I have reviewed the current psychotropics carefully including drug interactions. Risk benefit ratio favors no change other than as noted in my dictated progress note. Diagnosis: Problems: (1) Anxiety disorder (2) Impulse control disorder (3) Lewy body dementia with behavioral disturbance (4) Dementia, vascular, with delusions (5) Dementia in Alzheimer's disease with delusions (6) Major neurocognitive disorder (7) Major depressive disorder with psychotic features CAMERON ROSAS MD Sep 12, 2020 20:57
--- NOTE | 2020-09-12 22:44 | PN ---
DATE: 09/12/2020 This note covers elements not covered in my initial note. SUBJECTIVE: I met with the patient evening of 09/12/2020 and discussed with ANSHU Wilkreson. Overall, the patient has done better. He sleeps in the morning, slept in today until 11 a.m., somewhat depressed. REVIEW OF SYSTEMS: No CV, , pulmonary, eye system symptoms on review. Gait unsteady with festinating gait secondary to Parkinson's. MENTAL STATUS EXAM: Reasonably oriented. Speech moderate to marked latency, often responses monosyllabic. Abstraction fair, computation impaired, language function intact. Mood and affect withdrawn. No suicidal or homicidal ideation. LABORATORY DATA: Reviewed. IMPRESSION: Major depressive disorder with psychotic features, Lewy body dementia with delusion, and depression. PLAN: Continue current psychotropics. Maintain Zoloft 100 mg a day, augment with Wellbutrin XL 150 mg in the morning. Continue rest unchanged for now. MAN Juan ROSAS MD DR: TARAS/cathy JOB#: [id number] / [id number]
[2020-09-13 05:56] VITALS: BP 142/74
[2020-09-13] MEDS: LEVOTHYROXINE 25 MCG TABLET. PO SCH (06:00)
[2020-09-13] MEDS: DIVALPROEX 125 MG CAP.SPRINK PO SCH (08:56)
[2020-09-13] MEDS: RIVASTIGMINE 13.3MG PATCH. TD SCH (08:56)
[2020-09-13] MEDS: APIXABAN 5 MG TABLET. PO SCH ×2 (08:57→20:13)
[2020-09-13] MEDS: POTASSIUM CHLORIDE 20 MEQ TABLET.ER. PO SCH ×3 (08:57→20:13)
[2020-09-13] MEDS: CARBIDOPA/LEVODOPA 10/100MG TABLET PO SCH ×4 (08:57→20:12)
[2020-09-13] MEDS: TAMSULOSIN 0.4 MG CAP.ER.24H. PO SCH (08:57)
[2020-09-13] MEDS: OXYBUTYNIN CHLORIDE 5 MG TABLET PO SCH ×2 (08:58→20:13)
[2020-09-13] MEDS: METOPROLOL SUCC 24HR ER 25 MG TAB.ER.24H. PO SCH ×2 (08:58→20:13)
[2020-09-13] MEDS: MEMANTINE 10 MG TABLET. PO SCH ×2 (08:58→16:00)
[2020-09-13] MEDS: risperiDONE 0.5 MG TABLET. PO SCH ×3 (08:58→20:12)
[2020-09-13] MEDS: CHLORHEXIDINE 0.12% 15 ML MOUTHWASH. SWSP SCH ×2 (08:58→20:14)
[2020-09-13] MEDS: ASCORBIC ACID 500 MG TABLET PO SCH (08:58)
[2020-09-13] MEDS: DOCUSATE SODIUM 100 MG CAPSULE PO SCH (08:58)
[2020-09-13] MEDS: TIMOLOL 0.5% OPHTH SOLUTION 5ML BOTTLE. OU SCH ×2 (08:59→20:12)
[2020-09-13] MEDS: BUMETANIDE 1 MG TABLET PO SCH (08:59)
[2020-09-13] MEDS: buPROPion XL 150 MG TAB.ER.24H PO SCH (09:00)
[2020-09-13] MEDS: POLYETHYLENE GLYCOL 3350 17 GM PACKET. PO SCH (09:00)
[2020-09-13] MEDS: SENNOSIDES/DOCUSATE 8.6/50MG TABLET. PO SCH (09:00)
[2020-09-13] MEDS: CYCLOBENZAPRINE 10 MG TABLET. PO PRN ×2 (14:29→20:12)
[2020-09-13 15:58] VITALS: BP 125/71
[2020-09-13] MEDS: MELATONIN 3 MG TABLET PO SCH (20:12)
[2020-09-13] MEDS: GABAPENTIN 300 MG CAPSULE. PO SCH (20:13)
[2020-09-13] MEDS: DIVALPROEX ER 500 MG TAB.ER.24H PO SCH (20:13)
[2020-09-13] MEDS: ATORVASTATIN CALCIUM 20 MG TABLET PO SCH (20:13)
[2020-09-13] MEDS: ACETAMINOPHEN 500 MG TABLET PO SCH (20:13)
--- NOTE | 2020-09-13 21:04 | PDOC ---
Exam Note: Michael Note: Please also refer to the separate dictated note~for this date of service dictated separately.~Patient seen individually. Discussed the patient with Nursing staff reviewed the chart.~Reviewed interim history and current functioning. Reviewed vital signs,~Labs/ Radiology~and current medications noted below. Continue current treatment with the changes noted in the dictated addendum note Assessment: Vital Signs/I&O: Vital Signs Date Time Temp Pulse Resp B/P (MAP) Pulse Ox O2 Delivery O2 Flow Rate FiO2 09/13/20 20:13 78 125/71 09/13/20 15:58 97.6 16 95 09/12/20 06:21 Room Air I & O 09/12/20 09/12/20 09/13/20 14:59 22:59 06:59 Intake Total 240 ml 200 ml Balance 240 ml 200 ml Current Medications: Meds: Current Medications Medications (Trade) Dose Ordered Sig/Gloria Route PRN Reason Start Time Stop Time Status Last Admin Dose Admin Acetaminophen (Tylenol) 500 mg HS PO 09/01/20 21:00 09/13/20 20:13 Apixaban (Eliquis) 5 mg BID PO 09/01/20 21:00 09/13/20 20:13 Bumetanide (Bumex) 1 mg DAILY PO 09/02/20 09:00 09/08/20 12:01 DC 09/08/20 08:01 Carbidopa/Levodopa (Sinemet 10/100) 0.5 tab [id number] PO 09/01/20 17:00 09/13/20 20:12 Diclofenac Sodium (Voltaren) 1 camilla PRN BID PRN TP MUSCLE PAIN 09/01/20 15:30 Divalproex Sodium (Depakote Sprinkles) 125 mg DAILY PO 09/02/20 09:00 09/02/20 09:00 DC 09/02/20 08:22 Divalproex Sodium (Depakote Er) 500 mg QHS PO 09/01/20 21:00 09/13/20 20:13 Docusate Sodium (Colace) 100 mg DAILY PO 09/02/20 09:00 09/13/20 08:58 Gabapentin (Neurontin) 300 mg HS PO 09/01/20 21:00 09/13/20 20:13 Ibuprofen (Motrin) 400 mg PRN Q8HRS PRN PO PAIN 09/01/20 15:30 UNV Levothyroxine Sodium (Synthroid) 25 mcg DAILYAC PO 09/02/20 07:30 09/01/20 19:50 DC Magnesium Hydroxide (Milk Of Magnesia) 2,400 mg PRN QHS PRN PO CONSTIPATION, 2ND CHOICE 09/01/20 15:30 09/04/20 05:12 Memantine (Namenda) 10 mg [id number] PO 09/01/20 16:30 09/13/20 16:00 Metoprolol Succinate (Toprol Xl) 12.5 mg BID PO 09/01/20 21:00 09/13/20 20:13 Olanzapine (ZyPREXA ZYDIS) 5 mg PRN Q12HR PRN PO ANXIETY / AGITATION 09/01/20 15:30 Polyethylene Glycol (miraLAX) 17 gm DAILY PO 09/02/20 09:00 09/12/20 10:11 Polyethylene Glycol (miraLAX) 17 gm PRN DAILY PRN PO CONSTIPATION, 1ST CHOICE 09/01/20 15:30 Potassium Chloride (Klor-Con) 20 meq BID PO 09/01/20 21:00 09/08/20 12:01 DC 09/08/20 08:01 Risperidone (RisperDAL) 0.5 mg TID PO 09/01/20 21:00 09/13/20 20:12 Rivastigmine (Exelon 13.3mg) 1 patch DAILY TD 09/02/20 09:00 09/13/20 08:56 Senna/Docusate Sodium (Senna Plus) 1 tab DAILY PO 09/02/20 09:00 09/12/20 10:05 Sertraline HCl (Zoloft) 50 mg DAILY PO 09/02/20 09:00 09/02/20 16:48 DC 09/02/20 08:22 Tamsulosin HCl (Flomax) 0.4 mg DAILY PO 09/02/20 09:00 09/13/20 08:57 Ascorbic Acid (Vitamin C) 500 mg DAILY PO 09/02/20 09:00 09/13/20 08:58 Atorvastatin Calcium (Lipitor) 40 mg QHS PO 09/01/20 21:00 09/13/20 20:13 Non-Formulary Medication (Capsaicin/ Menthol (Salonpas Gel-Patch Hot)) 1 each HS TP 1/23/21 21:00 UNV Chlorhexidine Gluconate (Peridex) 15 ml BID SWSP 09/01/20 21:00 09/13/20 20:14 Multi-Ingred Cream/Lotion/Oil/ Oint (Hydrocerin) 1 camilla PRN BID PRN TP dry skin 09/01/20 16:45 Melatonin (Melatonin) 3 mg HS PO 09/01/20 21:00 09/13/20 20:12 Non-Formulary Medication (Menthol (Biofreeze)) 1 camilla PRN TID PRN TOP MUSCLE PAIN 09/01/20 15:30 UNV Cyclobenzaprine HCl (Flexeril) 10 mg PRN TID PRN PO low back pain 09/01/20 17:00 09/13/20 20:12 Oxybutynin Chloride (Ditropan) 5 mg BID PO 09/01/20 21:00 09/13/20 20:13 Timolol Maleate (Timoptic 0.5% [facility]) 1 drop BID OU 09/01/20 21:00 09/13/20 20:12 Multi-Ingredient Ointment (Analgesic [place]) 1 camilla PRN QID PRN TP MUSCLE PAIN 09/01/20 16:15 Cancel Al Hydroxide/Mg Hydroxide (Mylanta Plus Xs) 15 ml PRN AFTMEALHC PRN PO DYSPEPSIA 09/01/20 16:15 Levothyroxine Sodium (Synthroid) 25 mcg DAILY06 PO 09/02/20 06:00 09/13/20 06:00 Divalproex Sodium (Depakote Er) 125 mg DAILY PO 09/02/20 09:00 Cancel Sertraline HCl (Zoloft) 75 mg DAILY PO 09/03/20 09:00 09/05/20 11:00 DC 09/05/20 07:45 Sertraline HCl (Zoloft) 100 mg DAILY PO 09/06/20 09:00 09/12/20 18:22 DC 09/12/20 10:10 Divalproex Sodium (Depakote Sprinkles) 125 mg DAILY PO 09/03/20 09:00 09/04/20 17:23 DC 09/04/20 10:52 Divalproex Sodium (Depakote Sprinkles) 250 mg DAILY PO 09/05/20 09:00 09/13/20 08:56 Bumetanide (Bumex) 2 mg DAILY PO 09/09/20 09:00 09/13/20 08:59 Potassium Chloride (Klor-Con) 20 meq TID PO 09/08/20 14:00 09/13/20 20:13 Bumetanide (Bumex) 1 mg 1X ONCE PO 09/08/20 14:00 09/08/20 14:01 DC 09/08/20 14:00 Bupropion HCl (Wellbutrin Xl) 150 mg DAILY PO 09/13/20 09:00 09/13/20 09:00 Current Medications Medications (Trade) Dose Ordered Sig/Gloria Route PRN Reason Start Time Stop Time Status Last Admin Dose Admin Bupropion HCl (Wellbutrin Xl) 150 mg DAILY PO 09/13/20 09:00 09/13/20 09:00 I have reviewed the current psychotropics carefully including drug interactions. Risk benefit ratio favors no change other than as noted in my dictated progress note. Diagnosis: Problems: (1) Anxiety disorder (2) Impulse control disorder (3) Lewy body dementia with behavioral disturbance (4) Dementia, vascular, with delusions (5) Dementia in Alzheimer's disease with delusions (6) Major neurocognitive disorder (7) Major depressive disorder with psychotic features CAMERON RSOAS MD Sep 13, 2020 21:04
[2020-09-14] MEDS: RIVASTIGMINE 13.3MG PATCH. TD SCH (06:04)
[2020-09-14] MEDS: POLYETHYLENE GLYCOL 3350 17 GM PACKET. PO SCH (06:04)
[2020-09-14] MEDS: TAMSULOSIN 0.4 MG CAP.ER.24H. PO SCH (06:04)
[2020-09-14] MEDS: CHLORHEXIDINE 0.12% 15 ML MOUTHWASH. SWSP SCH ×2 (06:04→20:00)
[2020-09-14] MEDS: buPROPion XL 150 MG TAB.ER.24H PO SCH (06:04)
[2020-09-14] MEDS: CARBIDOPA/LEVODOPA 10/100MG TABLET PO SCH ×4 (06:05→20:03)
[2020-09-14] MEDS: MEMANTINE 10 MG TABLET. PO SCH ×2 (06:05→16:52)
[2020-09-14] MEDS: LEVOTHYROXINE 25 MCG TABLET. PO SCH (06:05)
[2020-09-14] MEDS: risperiDONE 0.5 MG TABLET. PO SCH ×2 (06:05→14:00)
[2020-09-14] MEDS: DIVALPROEX 125 MG CAP.SPRINK PO SCH (06:05)
[2020-09-14] MEDS: DOCUSATE SODIUM 100 MG CAPSULE PO SCH (06:05)
[2020-09-14] MEDS: POTASSIUM CHLORIDE 20 MEQ TABLET.ER. PO SCH ×3 (06:05→20:01)
[2020-09-14] MEDS: CYCLOBENZAPRINE 10 MG TABLET. PO PRN ×2 (06:05→20:03)
[2020-09-14] MEDS: OXYBUTYNIN CHLORIDE 5 MG TABLET PO SCH ×2 (06:05→20:00)
[2020-09-14] MEDS: ASCORBIC ACID 500 MG TABLET PO SCH (06:05)
[2020-09-14] MEDS: APIXABAN 5 MG TABLET. PO SCH ×2 (06:06→20:02)
[2020-09-14] MEDS: METOPROLOL SUCC 24HR ER 25 MG TAB.ER.24H. PO SCH ×2 (06:06→20:03)
[2020-09-14] MEDS: TIMOLOL 0.5% OPHTH SOLUTION 5ML BOTTLE. OU SCH ×2 (06:08→20:00)
[2020-09-14] MEDS: SENNOSIDES/DOCUSATE 8.6/50MG TABLET. PO SCH (06:08)
[2020-09-14] MEDS: BUMETANIDE 1 MG TABLET PO SCH (06:08)
[2020-09-14 06:16] VITALS: BP 148/91
[2020-09-14 15:52] VITALS: BP 136/72
[2020-09-14] MEDS: DIVALPROEX ER 500 MG TAB.ER.24H PO SCH (20:01)
[2020-09-14] MEDS: ACETAMINOPHEN 500 MG TABLET PO SCH (20:01)
[2020-09-14] MEDS: MELATONIN 3 MG TABLET PO SCH (20:02)
[2020-09-14] MEDS: ATORVASTATIN CALCIUM 20 MG TABLET PO SCH (20:03)
[2020-09-14] MEDS: GABAPENTIN 300 MG CAPSULE. PO SCH (20:03)
--- NOTE | 2020-09-14 20:51 | PDOC ---
Exam Note: Michael Note: Please also refer to the separate dictated note~for this date of service dictated separately.~Patient seen individually. Discussed the patient with Nursing staff reviewed the chart.~Reviewed interim history and current functioning. Reviewed vital signs,~Labs/ Radiology~and current medications noted below. Continue current treatment with the changes noted in the dictated addendum note Assessment: Vital Signs/I&O: Vital Signs Date Time Temp Pulse Resp B/P (MAP) Pulse Ox O2 Delivery O2 Flow Rate FiO2 09/14/20 20:03 74 136/72 09/14/20 15:52 97.8 18 98 09/12/20 06:21 Room Air I & O 09/13/20 09/13/20 09/14/20 15:00 23:00 07:00 Intake Total 160 ml 240 ml Balance 160 ml 240 ml Current Medications: Meds: Current Medications Medications (Trade) Dose Ordered Sig/Gloria Route PRN Reason Start Time Stop Time Status Last Admin Dose Admin Acetaminophen (Tylenol) 500 mg HS PO 09/01/20 21:00 09/14/20 20:01 Apixaban (Eliquis) 5 mg BID PO 09/01/20 21:00 09/14/20 20:02 Bumetanide (Bumex) 1 mg DAILY PO 09/02/20 09:00 09/08/20 12:01 DC 09/08/20 08:01 Carbidopa/Levodopa (Sinemet 10/100) 0.5 tab [id number] PO 09/01/20 17:00 09/14/20 20:03 Diclofenac Sodium (Voltaren) 1 camilla PRN BID PRN TP MUSCLE PAIN 09/01/20 15:30 Divalproex Sodium (Depakote Sprinkles) 125 mg DAILY PO 09/02/20 09:00 09/02/20 09:00 DC 09/02/20 08:22 Divalproex Sodium (Depakote Er) 500 mg QHS PO 09/01/20 21:00 09/14/20 20:01 Docusate Sodium (Colace) 100 mg DAILY PO 09/02/20 09:00 09/14/20 06:05 Gabapentin (Neurontin) 300 mg HS PO 09/01/20 21:00 09/14/20 20:03 Ibuprofen (Motrin) 400 mg PRN Q8HRS PRN PO PAIN 09/01/20 15:30 UNV Levothyroxine Sodium (Synthroid) 25 mcg DAILYAC PO 09/02/20 07:30 09/01/20 19:50 DC Magnesium Hydroxide (Milk Of Magnesia) 2,400 mg PRN QHS PRN PO CONSTIPATION, 2ND CHOICE 09/01/20 15:30 09/04/20 05:12 Memantine (Namenda) 10 mg [id number] PO 09/01/20 16:30 09/14/20 16:52 Metoprolol Succinate (Toprol Xl) 12.5 mg BID PO 09/01/20 21:00 09/14/20 20:03 Olanzapine (ZyPREXA ZYDIS) 5 mg PRN Q12HR PRN PO ANXIETY / AGITATION 09/01/20 15:30 Polyethylene Glycol (miraLAX) 17 gm DAILY PO 09/02/20 09:00 09/14/20 06:04 Polyethylene Glycol (miraLAX) 17 gm PRN DAILY PRN PO CONSTIPATION, 1ST CHOICE 09/01/20 15:30 Potassium Chloride (Klor-Con) 20 meq BID PO 09/01/20 21:00 09/08/20 12:01 DC 09/08/20 08:01 Risperidone (RisperDAL) 0.5 mg TID PO 09/01/20 21:00 09/14/20 17:54 DC 09/14/20 06:05 Rivastigmine (Exelon 13.3mg) 1 patch DAILY TD 09/02/20 09:00 09/14/20 06:04 Senna/Docusate Sodium (Senna Plus) 1 tab DAILY PO 09/02/20 09:00 09/14/20 06:08 Sertraline HCl (Zoloft) 50 mg DAILY PO 09/02/20 09:00 09/02/20 16:48 DC 09/02/20 08:22 Tamsulosin HCl (Flomax) 0.4 mg DAILY PO 09/02/20 09:00 09/14/20 06:04 Ascorbic Acid (Vitamin C) 500 mg DAILY PO 09/02/20 09:00 09/14/20 06:05 Atorvastatin Calcium (Lipitor) 40 mg QHS PO 09/01/20 21:00 09/14/20 20:03 Non-Formulary Medication (Capsaicin/ Menthol (Salonpas Gel-Patch Hot)) 1 each HS TP 09/01/20 21:00 UNV Chlorhexidine Gluconate (Peridex) 15 ml BID SWSP 09/01/20 21:00 09/14/20 20:00 Multi-Ingred Cream/Lotion/Oil/ Oint (Hydrocerin) 1 camilla PRN BID PRN TP dry skin 09/01/20 16:45 Melatonin (Melatonin) 3 mg HS PO 09/01/20 21:00 09/14/20 20:02 Non-Formulary Medication (Menthol (Biofreeze)) 1 camilla PRN TID PRN TOP MUSCLE PAIN 09/01/20 15:30 UNV Cyclobenzaprine HCl (Flexeril) 10 mg PRN TID PRN PO low back pain 09/01/20 17:00 09/14/20 20:03 Oxybutynin Chloride (Ditropan) 5 mg BID PO 09/01/20 21:00 09/14/20 20:00 Timolol Maleate (Timoptic 0.5% Oph) 1 drop BID OU 09/01/20 21:00 09/14/20 20:00 Multi-Ingredient Ointment (Analgesic [place]) 1 camilla PRN QID PRN TP MUSCLE PAIN 09/01/20 16:15 Cancel Al Hydroxide/Mg Hydroxide (Mylanta Plus Xs) 15 ml PRN AFTMEALHC PRN PO DYSPEPSIA 09/01/20 16:15 Levothyroxine Sodium (Synthroid) 25 mcg DAILY06 PO 09/02/20 06:00 09/14/20 06:05 Divalproex Sodium (Depakote Er) 125 mg DAILY PO 09/02/20 09:00 Cancel Sertraline HCl (Zoloft) 75 mg DAILY PO 09/03/20 09:00 09/05/20 11:00 DC 09/05/20 07:45 Sertraline HCl (Zoloft) 100 mg DAILY PO 09/06/20 09:00 09/12/20 18:22 DC 09/12/20 10:10 Divalproex Sodium (Depakote Sprinkles) 125 mg DAILY PO 09/03/20 09:00 09/04/20 17:23 DC 09/04/20 10:52 Divalproex Sodium (Depakote Sprinkles) 250 mg DAILY PO 09/05/20 09:00 09/14/20 06:05 Bumetanide (Bumex) 2 mg DAILY PO 09/09/20 09:00 09/14/20 06:08 Potassium Chloride (Klor-Con) 20 meq TID PO 09/08/20 14:00 09/14/20 20:01 Bumetanide (Bumex) 1 mg 1X ONCE PO 09/08/20 14:00 09/08/20 14:01 DC 09/08/20 14:00 Bupropion HCl (Wellbutrin Xl) 150 mg DAILY PO 09/13/20 09:00 09/14/20 06:04 Risperidone (RisperDAL) 0.5 mg QHS PO 09/15/20 21:00 I have reviewed the current psychotropics carefully including drug interactions. Risk benefit ratio favors no change other than as noted in my dictated progress note. Diagnosis: Problems: (1) Anxiety disorder (2) Impulse control disorder (3) Lewy body dementia with behavioral disturbance (4) Dementia, vascular, with delusions (5) Dementia in Alzheimer's disease with delusions (6) Major neurocognitive disorder (7) Major depressive disorder with psychotic features CAMERON ROSAS MD Sep 14, 2020 20:51
[2020-09-15] MEDS: POLYETHYLENE GLYCOL 3350 17 GM PACKET. PO SCH (05:45)
[2020-09-15] MEDS: TIMOLOL 0.5% OPHTH SOLUTION 5ML BOTTLE. OU SCH ×2 (05:46→19:53)
[2020-09-15] MEDS: CHLORHEXIDINE 0.12% 15 ML MOUTHWASH. SWSP SCH ×2 (05:46→19:53)
[2020-09-15] MEDS: LEVOTHYROXINE 25 MCG TABLET. PO SCH (05:46)
[2020-09-15] MEDS: DOCUSATE SODIUM 100 MG CAPSULE PO SCH (05:47)
[2020-09-15] MEDS: buPROPion XL 150 MG TAB.ER.24H PO SCH (05:47)
[2020-09-15] MEDS: DIVALPROEX 125 MG CAP.SPRINK PO SCH (05:47)
[2020-09-15] MEDS: APIXABAN 5 MG TABLET. PO SCH ×2 (05:47→19:55)
[2020-09-15] MEDS: CARBIDOPA/LEVODOPA 10/100MG TABLET PO SCH ×4 (05:48→19:57)
[2020-09-15] MEDS: TAMSULOSIN 0.4 MG CAP.ER.24H. PO SCH (05:48)
[2020-09-15] MEDS: SENNOSIDES/DOCUSATE 8.6/50MG TABLET. PO SCH (05:48)
[2020-09-15] MEDS: POTASSIUM CHLORIDE 20 MEQ TABLET.ER. PO SCH ×3 (05:49→19:57)
[2020-09-15] MEDS: OXYBUTYNIN CHLORIDE 5 MG TABLET PO SCH ×2 (05:49→19:54)
[2020-09-15] MEDS: METOPROLOL SUCC 24HR ER 25 MG TAB.ER.24H. PO SCH ×2 (05:50→19:58)
[2020-09-15] MEDS: RIVASTIGMINE 13.3MG PATCH. TD SCH (05:51)
[2020-09-15] MEDS: MEMANTINE 10 MG TABLET. PO SCH ×2 (05:51→17:13)
[2020-09-15] MEDS: ASCORBIC ACID 500 MG TABLET PO SCH (05:51)
[2020-09-15 06:23] VITALS: BP 151/81
--- NOTE | 2020-09-15 07:12 | PDOC ---
Exam Note: Michael Note: This note is a late entry for 09/13/2020 covers elements not covered in my initial note. Subjective: The patient was seen face to face in the evening of 09/13/2020 with Dionne BRASHER. He slept 8 hours previous night. The patient has had a shuffling gait and is walking hunched. He woke up at 6.45 a.m., appeared confused. We will defer management to his Parkinsons to Dr. Schofield, Neurology. Review of Systems: Ambulation impaired. No CV, , pulmonary, eye, ENT system symptoms on review. Mental Status Exam: The patient is alert and oriented to himself. Speech mo derate to marked latency. Often response is monosyllabic, low in rate and rhythm, low in volume. He is ambulating hunched forward festinating gait. Attention span is short. Language function is intact. Mood and affect withdrawn. No suicidal or homicidal ideation. Laboratory Data: Reviewed. Impression: Major depressive disorder rule out psychotic features. Lewy body dementia early with delusion, depression. Anxiety disorder unspecified. Impulse control disorder unspecified. Plan: No change from initial note but if parkinsonian symptoms persist, we may reduce the Risperdal. Assessment: Vital Signs/I&O: Vital Signs Date Time Temp Pulse Resp B/P (MAP) Pulse Ox O2 Delivery O2 Flow Rate FiO2 09/15/20 06:23 97.1 62 16 151/81 (104) 94 09/12/20 06:21 Room Air I & O 09/14/20 09/14/20 09/15/20 15:00 23:00 07:00 Intake Total 360 ml 360 ml Balance 360 ml 360 ml Current Medications: Meds: Current Medications Medications (Trade) Dose Ordered Sig/Gloria Route PRN Reason Start Time Stop Time Status Last Admin Dose Admin Acetaminophen (Tylenol) 500 mg HS PO 09/01/20 21:00 09/14/20 20:01 Apixaban (Eliquis) 5 mg BID PO 09/01/20 21:00 09/15/20 05:47 Bumetanide (Bumex) 1 mg DAILY PO 09/02/20 09:00 09/08/20 12:01 DC 09/08/20 08:01 Carbidopa/Levodopa (Sinemet 10/100) 0.5 tab [id number] PO 09/01/20 17:00 09/15/20 05:48 Diclofenac Sodium (Voltaren) 1 camilla PRN BID PRN TP MUSCLE PAIN 09/01/20 15:30 Divalproex Sodium (Depakote Sprinkles) 125 mg DAILY PO 09/02/20 09:00 09/02/20 09:00 DC 09/02/20 08:22 Divalproex Sodium (Depakote Er) 500 mg QHS PO 09/01/20 21:00 09/14/20 20:01 Docusate Sodium (Colace) 100 mg DAILY PO 09/02/20 09:00 09/15/20 05:47 Gabapentin (Neurontin) 300 mg HS PO 09/01/20 21:00 09/14/20 20:03 Ibuprofen (Motrin) 400 mg PRN Q8HRS PRN PO PAIN 09/01/20 15:30 UNV Levothyroxine Sodium (Synthroid) 25 mcg DAILYAC PO 09/02/20 07:30 09/01/20 19:50 DC Magnesium Hydroxide (Milk Of Magnesia) 2,400 mg PRN QHS PRN PO CONSTIPATION, 2ND CHOICE 09/01/20 15:30 09/04/20 05:12 Memantine (Namenda) 10 mg [id number] PO 09/01/20 16:30 09/15/20 05:51 Metoprolol Succinate (Toprol Xl) 12.5 mg BID PO 09/01/20 21:00 09/15/20 05:50 Olanzapine (ZyPREXA ZYDIS) 5 mg PRN Q12HR PRN PO ANXIETY / AGITATION 09/01/20 15:30 Polyethylene Glycol (miraLAX) 17 gm DAILY PO 09/02/20 09:00 09/15/20 05:45 Polyethylene Glycol (miraLAX) 17 gm PRN DAILY PRN PO CONSTIPATION, 1ST CHOICE 09/01/20 15:30 Potassium Chloride (Klor-Con) 20 meq BID PO 09/01/20 21:00 09/08/20 12:01 DC 09/08/20 08:01 Risperidone (RisperDAL) 0.5 mg TID PO 09/01/20 21:00 09/14/20 17:54 DC 09/14/20 06:05 Rivastigmine (Exelon 13.3mg) 1 patch DAILY TD 09/02/20 09:00 09/15/20 05:51 Senna/Docusate Sodium (Senna Plus) 1 tab DAILY PO 09/02/20 09:00 09/15/20 05:48 Sertraline HCl (Zoloft) 50 mg DAILY PO 09/02/20 09:00 09/02/20 16:48 DC 09/02/20 08:22 Tamsulosin HCl (Flomax) 0.4 mg DAILY PO 09/02/20 09:00 09/15/20 05:48 Ascorbic Acid (Vitamin C) 500 mg DAILY PO 09/02/20 09:00 09/15/20 05:51 Atorvastatin Calcium (Lipitor) 40 mg QHS PO 09/01/20 21:00 09/14/20 20:03 Non-Formulary Medication (Capsaicin/ Menthol (Salonpas Gel-Patch Hot)) 1 each HS TP 09/01/20 21:00 UNV Chlorhexidine Gluconate (Peridex) 15 ml BID SWSP 09/01/20 21:00 09/15/20 05:46 Multi-Ingred Cream/Lotion/Oil/ Oint (Hydrocerin) 1 camilla PRN BID PRN TP dry skin 09/01/20 16:45 Melatonin (Melatonin) 3 mg HS PO 09/01/20 21:00 09/14/20 20:02 Non-Formulary Medication (Menthol (Biofreeze)) 1 camilla PRN TID PRN TOP MUSCLE PAIN 09/01/20 15:30 UNV Cyclobenzaprine HCl (Flexeril) 10 mg PRN TID PRN PO low back pain 09/01/20 17:00 09/14/20 20:03 Oxybutynin Chloride (Ditropan) 5 mg BID PO 09/01/20 21:00 09/15/20 05:49 Timolol Maleate (Timoptic 0.5% Oph) 1 drop BID OU 09/01/20 21:00 09/15/20 05:46 Multi-Ingredient Ointment (Analgesic [place]) 1 camilla PRN QID PRN TP MUSCLE PAIN 09/01/20 16:15 Cancel Al Hydroxide/Mg Hydroxide (Mylanta Plus Xs) 15 ml PRN AFTMEALHC PRN PO DYSPEPSIA 09/01/20 16:15 Levothyroxine Sodium (Synthroid) 25 mcg DAILY06 PO 09/02/20 06:00 09/15/20 05:46 Divalproex Sodium (Depakote Er) 125 mg DAILY PO 09/02/20 09:00 Cancel Sertraline HCl (Zoloft) 75 mg DAILY PO 09/03/20 09:00 09/05/20 11:00 DC 09/05/20 07:45 Sertraline HCl (Zoloft) 100 mg DAILY PO 09/06/20 09:00 09/12/20 18:22 DC 09/12/20 10:10 Divalproex Sodium (Depakote Sprinkles) 125 mg DAILY PO 09/03/20 09:00 09/04/20 17:23 DC 09/04/20 10:52 Divalproex Sodium (Depakote Sprinkles) 250 mg DAILY PO 09/05/20 09:00 09/15/20 05:47 Bumetanide (Bumex) 2 mg DAILY PO 09/09/20 09:00 09/14/20 06:08 Potassium Chloride (Klor-Con) 20 meq TID PO 09/08/20 14:00 09/15/20 05:49 Bumetanide (Bumex) 1 mg 1X ONCE PO 09/08/20 14:00 09/08/20 14:01 DC 09/08/20 14:00 Bupropion HCl (Wellbutrin Xl) 150 mg DAILY PO 09/13/20 09:00 09/15/20 05:47 Risperidone (RisperDAL) 0.5 mg QHS PO 09/15/20 21:00 I have reviewed the current psychotropics carefully including drug interactions. Risk benefit ratio favors no change other than as noted in my dictated progress note. Diagnosis: Problems: (1) Anxiety disorder (2) Impulse control disorder (3) Lewy body dementia with behavioral disturbance (4) Dementia, vascular, with delusions (5) Dementia in Alzheimer's disease with delusions (6) Major neurocognitive disorder (7) Major depressive disorder with psychotic features CAMERON ROSAS MD Sep 15, 2020 07:12
--- NOTE | 2020-09-15 07:36 | PDOC ---
Exam Note: Michael Note: This note is a late entry for 09/14/2020 covers elements not covered in my initial note. Subjective: The patient was seen face to face in the evening of 09/14/2020 with Maris BRASHER. He slept 6-1/4 hours previous night. The patient has had a shuffling gait, arms stiff but slept from 12 p.m. to 3.30 p.m. Review of Systems: No CV, , pulmonary, eye system symptoms on review. Mental Status Exam: The patient is reasonably oriented. Speech moderate latency. Often response is monosyllabic, low in rate and rhythm, low in volume. He is ambulating hunched forward festinating gait. Attention span is short. Language function is intact. Mood and affect withdrawn. No suicidal or homicidal ideation. Laboratory Data: Reviewed. Impression: Major depressive disorder rule out psychotic features. Lewy body dementia early with delusion, depression. Anxiety disorder unspecified. Impulse control disorder unspecified. Plan: Given his ongoing significant parkinsonian symptoms and absence of psychosis, we will reduce his Risperdal from 1.5 mg a day down to 0.5 mg a day since extrapyramidal side effects could be worsening his above presentation. Continue rest unchanged. Adjust as clinically indicated. Assessment: Vital Signs/I&O: Vital Signs Date Time Temp Pulse Resp B/P (MAP) Pulse Ox O2 Delivery O2 Flow Rate FiO2 09/15/20 06:23 97.1 62 16 151/81 (104) 94 09/12/20 06:21 Room Air I & O 09/14/20 09/14/20 09/15/20 15:00 23:00 07:00 Intake Total 360 ml 360 ml Balance 360 ml 360 ml Current Medications: Meds: Current Medications Medications (Trade) Dose Ordered Sig/Gloria Route PRN Reason Start Time Stop Time Status Last Admin Dose Admin Acetaminophen (Tylenol) 500 mg HS PO 09/01/20 21:00 09/14/20 20:01 Apixaban (Eliquis) 5 mg BID PO 09/01/20 21:00 09/15/20 05:47 Bumetanide (Bumex) 1 mg DAILY PO 09/02/20 09:00 09/08/20 12:01 DC 09/08/20 08:01 Carbidopa/Levodopa (Sinemet 10/100) 0.5 tab [id number] PO 09/01/20 17:00 09/15/20 05:48 Diclofenac Sodium (Voltaren) 1 camilla PRN BID PRN TP MUSCLE PAIN 09/01/20 15:30 Divalproex Sodium (Depakote Sprinkles) 125 mg DAILY PO 09/02/20 09:00 09/02/20 09:00 DC 09/02/20 08:22 Divalproex Sodium (Depakote Er) 500 mg QHS PO 09/01/20 21:00 09/14/20 20:01 Docusate Sodium (Colace) 100 mg DAILY PO 09/02/20 09:00 09/15/20 05:47 Gabapentin (Neurontin) 300 mg HS PO 09/01/20 21:00 09/14/20 20:03 Ibuprofen (Motrin) 400 mg PRN Q8HRS PRN PO PAIN 09/01/20 15:30 UNV Levothyroxine Sodium (Synthroid) 25 mcg DAILYAC PO 09/02/20 07:30 09/01/20 19:50 DC Magnesium Hydroxide (Milk Of Magnesia) 2,400 mg PRN QHS PRN PO CONSTIPATION, 2ND CHOICE 09/01/20 15:30 09/04/20 05:12 Memantine (Namenda) 10 mg [id number] PO 09/01/20 16:30 09/15/20 05:51 Metoprolol Succinate (Toprol Xl) 12.5 mg BID PO 09/01/20 21:00 09/15/20 05:50 Olanzapine (ZyPREXA ZYDIS) 5 mg PRN Q12HR PRN PO ANXIETY / AGITATION 09/01/20 15:30 Polyethylene Glycol (miraLAX) 17 gm DAILY PO 09/02/20 09:00 09/15/20 05:45 Polyethylene Glycol (miraLAX) 17 gm PRN DAILY PRN PO CONSTIPATION, 1ST CHOICE 09/01/20 15:30 Potassium Chloride (Klor-Con) 20 meq BID PO 09/01/20 21:00 09/08/20 12:01 DC 09/08/20 08:01 Risperidone (RisperDAL) 0.5 mg TID PO 09/01/20 21:00 09/14/20 17:54 DC 09/14/20 06:05 Rivastigmine (Exelon 13.3mg) 1 patch DAILY TD 09/02/20 09:00 09/15/20 05:51 Senna/Docusate Sodium (Senna Plus) 1 tab DAILY PO 09/02/20 09:00 09/15/20 05:48 Sertraline HCl (Zoloft) 50 mg DAILY PO 09/02/20 09:00 09/02/20 16:48 DC 09/02/20 08:22 Tamsulosin HCl (Flomax) 0.4 mg DAILY PO 09/02/20 09:00 09/15/20 05:48 Ascorbic Acid (Vitamin C) 500 mg DAILY PO 09/02/20 09:00 09/15/20 05:51 Atorvastatin Calcium (Lipitor) 40 mg QHS PO 09/01/20 21:00 09/14/20 20:03 Non-Formulary Medication (Capsaicin/ Menthol (Salonpas Gel-Patch Hot)) 1 each HS TP 09/01/20 21:00 UNV Chlorhexidine Gluconate (Peridex) 15 ml BID SWSP 09/01/20 21:00 09/15/20 05:46 Multi-Ingred Cream/Lotion/Oil/ Oint (Hydrocerin) 1 camilla PRN BID PRN TP dry skin 09/01/20 16:45 Melatonin (Melatonin) 3 mg HS PO 09/01/20 21:00 09/14/20 20:02 Non-Formulary Medication (Menthol (Biofreeze)) 1 camilla PRN TID PRN TOP MUSCLE PAIN 09/01/20 15:30 UNV Cyclobenzaprine HCl (Flexeril) 10 mg PRN TID PRN PO low back pain 09/01/20 17:00 09/14/20 20:03 Oxybutynin Chloride (Ditropan) 5 mg BID PO 09/01/20 21:00 09/15/20 05:49 Timolol Maleate (Timoptic 0.5% [facility]) 1 drop BID OU 09/01/20 21:00 09/15/20 05:46 Multi-Ingredient Ointment (Analgesic [place]) 1 camilla PRN QID PRN TP MUSCLE PAIN 09/01/20 16:15 Cancel Al Hydroxide/Mg Hydroxide (Mylanta Plus Xs) 15 ml PRN AFTMEALHC PRN PO DYSPEPSIA 09/01/20 16:15 Levothyroxine Sodium (Synthroid) 25 mcg DAILY06 PO 09/02/20 06:00 09/15/20 05:46 Divalproex Sodium (Depakote Er) 125 mg DAILY PO 09/02/20 09:00 Cancel Sertraline HCl (Zoloft) 75 mg DAILY PO 09/03/20 09:00 09/05/20 11:00 DC 09/05/20 07:45 Sertraline HCl (Zoloft) 100 mg DAILY PO 09/06/20 09:00 09/12/20 18:22 DC 09/12/20 10:10 Divalproex Sodium (Depakote Sprinkles) 125 mg DAILY PO 09/03/20 09:00 09/04/20 17:23 DC 09/04/20 10:52 Divalproex Sodium (Depakote Sprinkles) 250 mg DAILY PO 09/05/20 09:00 09/15/20 05:47 Bumetanide (Bumex) 2 mg DAILY PO 09/09/20 09:00 09/14/20 06:08 Potassium Chloride (Klor-Con) 20 meq TID PO 09/08/20 14:00 09/15/20 05:49 Bumetanide (Bumex) 1 mg 1X ONCE PO 09/08/20 14:00 09/08/20 14:01 DC 09/08/20 14:00 Bupropion HCl (Wellbutrin Xl) 150 mg DAILY PO 09/13/20 09:00 09/15/20 05:47 Risperidone (RisperDAL) 0.5 mg QHS PO 09/15/20 21:00 I have reviewed the current psychotropics carefully including drug interactions. Risk benefit ratio favors no change other than as noted in my dictated progress note. Diagnosis: Problems: (1) Anxiety disorder (2) Impulse control disorder (3) Lewy body dementia with behavioral disturbance (4) Dementia, vascular, with delusions (5) Dementia in Alzheimer's disease with delusions (6) Major neurocognitive disorder (7) Major depressive disorder with psychotic features CAMERON ROSAS MD Sep 15, 2020 07:36
[2020-09-15] MEDS: BUMETANIDE 1 MG TABLET PO SCH (08:43)
[2020-09-15 15:54] VITALS: BP 123/73
[2020-09-15] MEDS: MELATONIN 3 MG TABLET PO SCH (19:53)
[2020-09-15] MEDS: DIVALPROEX ER 500 MG TAB.ER.24H PO SCH (19:54)
[2020-09-15] MEDS: ACETAMINOPHEN 500 MG TABLET PO SCH (19:55)
[2020-09-15] MEDS: ATORVASTATIN CALCIUM 20 MG TABLET PO SCH (19:56)
[2020-09-15] MEDS: risperiDONE 0.5 MG TABLET. PO SCH (19:58)
[2020-09-15] MEDS: GABAPENTIN 300 MG CAPSULE. PO SCH (19:58)
[2020-09-15] MEDS: CYCLOBENZAPRINE 10 MG TABLET. PO PRN (19:59)
--- NOTE | 2020-09-15 21:01 | PDOC ---
Exam Note: Michael Note: Please also refer to the separate dictated note~for this date of service dictated separately.~Patient seen individually. Discussed the patient with Nursing staff reviewed the chart.~Reviewed interim history and current functioning. Reviewed vital signs,~Labs/ Radiology~and current medications noted below. Continue current treatment with the changes noted in the dictated addendum note Assessment: Vital Signs/I&O: Vital Signs Date Time Temp Pulse Resp B/P (MAP) Pulse Ox O2 Delivery O2 Flow Rate FiO2 09/15/20 19:58 67 123/73 09/15/20 15:54 97.8 16 95 09/12/20 06:21 Room Air I & O 09/14/20 09/14/20 09/15/20 15:00 23:00 07:00 Intake Total 360 ml 360 ml Balance 360 ml 360 ml Current Medications: Meds: Current Medications Medications (Trade) Dose Ordered Sig/Gloria Route PRN Reason Start Time Stop Time Status Last Admin Dose Admin Acetaminophen (Tylenol) 500 mg HS PO 09/01/20 21:00 09/15/20 19:55 Apixaban (Eliquis) 5 mg BID PO 09/01/20 21:00 09/15/20 19:55 Bumetanide (Bumex) 1 mg DAILY PO 09/02/20 09:00 09/08/20 12:01 DC 09/08/20 08:01 Carbidopa/Levodopa (Sinemet 10/100) 0.5 tab [id number] PO 09/01/20 17:00 09/15/20 19:57 Diclofenac Sodium (Voltaren) 1 camilla PRN BID PRN TP MUSCLE PAIN 09/01/20 15:30 Divalproex Sodium (Depakote Sprinkles) 125 mg DAILY PO 09/02/20 09:00 09/02/20 09:00 DC 09/02/20 08:22 Divalproex Sodium (Depakote Er) 500 mg QHS PO 09/01/20 21:00 09/15/20 19:54 Docusate Sodium (Colace) 100 mg DAILY PO 09/02/20 09:00 09/15/20 05:47 Gabapentin (Neurontin) 300 mg HS PO 09/01/20 21:00 09/15/20 19:58 Ibuprofen (Motrin) 400 mg PRN Q8HRS PRN PO PAIN 09/01/20 15:30 UNV Levothyroxine Sodium (Synthroid) 25 mcg DAILYAC PO 09/02/20 07:30 09/01/20 19:50 DC Magnesium Hydroxide (Milk Of Magnesia) 2,400 mg PRN QHS PRN PO CONSTIPATION, 2ND CHOICE 09/01/20 15:30 09/04/20 05:12 Memantine (Namenda) 10 mg [id number] PO 09/01/20 16:30 09/15/20 17:13 Metoprolol Succinate (Toprol Xl) 12.5 mg BID PO 09/01/20 21:00 09/15/20 19:58 Olanzapine (ZyPREXA ZYDIS) 5 mg PRN Q12HR PRN PO ANXIETY / AGITATION 09/01/20 15:30 Polyethylene Glycol (miraLAX) 17 gm DAILY PO 09/02/20 09:00 09/15/20 05:45 Polyethylene Glycol (miraLAX) 17 gm PRN DAILY PRN PO CONSTIPATION, 1ST CHOICE 09/01/20 15:30 Potassium Chloride (Klor-Con) 20 meq BID PO 09/01/20 21:00 09/08/20 12:01 DC 09/08/20 08:01 Risperidone (RisperDAL) 0.5 mg TID PO 09/01/20 21:00 09/14/20 17:54 DC 09/14/20 06:05 Rivastigmine (Exelon 13.3mg) 1 patch DAILY TD 09/02/20 09:00 09/15/20 05:51 Senna/Docusate Sodium (Senna Plus) 1 tab DAILY PO 09/02/20 09:00 09/15/20 05:48 Sertraline HCl (Zoloft) 50 mg DAILY PO 09/02/20 09:00 09/02/20 16:48 DC 09/02/20 08:22 Tamsulosin HCl (Flomax) 0.4 mg DAILY PO 09/02/20 09:00 09/15/20 05:48 Ascorbic Acid (Vitamin C) 500 mg DAILY PO 09/02/20 09:00 09/15/20 05:51 Atorvastatin Calcium (Lipitor) 40 mg QHS PO 09/01/20 21:00 09/15/20 19:56 Non-Formulary Medication (Capsaicin/ Menthol (Salonpas Gel-Patch Hot)) 1 each HS TP 09/01/20 21:00 UNV Chlorhexidine Gluconate (Peridex) 15 ml BID SWSP 09/01/20 21:00 09/15/20 19:53 Multi-Ingred Cream/Lotion/Oil/ Oint (Hydrocerin) 1 camilla PRN BID PRN TP dry skin 09/01/20 16:45 Melatonin (Melatonin) 3 mg HS PO 09/01/20 21:00 09/15/20 19:53 Non-Formulary Medication (Menthol (Biofreeze)) 1 camilla PRN TID PRN TOP MUSCLE PAIN 09/01/20 15:30 UNV Cyclobenzaprine HCl (Flexeril) 10 mg PRN TID PRN PO low back pain 09/01/20 17:00 09/15/20 19:59 Oxybutynin Chloride (Ditropan) 5 mg BID PO 09/01/20 21:00 09/15/20 19:54 Timolol Maleate (Timoptic 0.5% [facility]) 1 drop BID OU 09/01/20 21:00 09/15/20 19:53 Multi-Ingredient Ointment (Analgesic [place]) 1 camilla PRN QID PRN TP MUSCLE PAIN 09/01/20 16:15 Cancel Al Hydroxide/Mg Hydroxide (Mylanta Plus Xs) 15 ml PRN AFTMEALHC PRN PO DYSPEPSIA 09/01/20 16:15 Levothyroxine Sodium (Synthroid) 25 mcg DAILY06 PO 09/02/20 06:00 09/15/20 05:46 Divalproex Sodium (Depakote Er) 125 mg DAILY PO 09/02/20 09:00 Cancel Sertraline HCl (Zoloft) 75 mg DAILY PO 09/03/20 09:00 09/05/20 11:00 DC 09/05/20 07:45 Sertraline HCl (Zoloft) 100 mg DAILY PO 09/06/20 09:00 09/12/20 18:22 DC 09/12/20 10:10 Divalproex Sodium (Depakote Sprinkles) 125 mg DAILY PO 09/03/20 09:00 09/04/20 17:23 DC 09/04/20 10:52 Divalproex Sodium (Depakote Sprinkles) 250 mg DAILY PO 09/05/20 09:00 09/15/20 05:47 Bumetanide (Bumex) 2 mg DAILY PO 09/09/20 09:00 09/15/20 08:43 Potassium Chloride (Klor-Con) 20 meq TID PO 09/08/20 14:00 09/15/20 19:57 Bumetanide (Bumex) 1 mg 1X ONCE PO 09/08/20 14:00 09/08/20 14:01 DC 09/08/20 14:00 Bupropion HCl (Wellbutrin Xl) 150 mg DAILY PO 09/13/20 09:00 09/15/20 05:47 Risperidone (RisperDAL) 0.5 mg QHS PO 09/15/20 21:00 09/15/20 19:58 Current Medications Medications (Trade) Dose Ordered Sig/Gloria Route PRN Reason Start Time Stop Time Status Last Admin Dose Admin Risperidone (RisperDAL) 0.5 mg QHS PO 09/15/20 21:00 09/15/20 19:58 I have reviewed the current psychotropics carefully including drug interactions. Risk benefit ratio favors no change other than as noted in my dictated progress note. Diagnosis: Problems: (1) Anxiety disorder (2) Impulse control disorder (3) Lewy body dementia with behavioral disturbance (4) Dementia, vascular, with delusions (5) Dementia in Alzheimer's disease with delusions (6) Major neurocognitive disorder (7) Major depressive disorder with psychotic features CAMERON ROSAS MD Sep 15, 2020 21:01
[2020-09-16] MEDS: LEVOTHYROXINE 25 MCG TABLET. PO SCH (05:18)
[2020-09-16 06:00] VITALS: BP 150/84
--- NOTE | 2020-09-16 08:04 | PDOC ---
Exam Note: Michael Note: This note is a late entry for 09/15/2020 covers elements not covered in my initial note. Subjective: The patient was seen on telehealth rounds in the evening of 09/15/2020 with Zack BRASHER. He slept 7-1/2 hours previous night. Overall the patient was somewhat drowsy in the morning, then did better rest of the day, was ambulating better since we have reduced the Risperdal, he had a conversation with his . Nevertheless as I questioned him in the evening on rounds, he stated he was having some auditory visual hallucinations since we reduced the Risperdal. We will have to monitor this carefully but is extrapyramidal side effects and ambulation has definitely improved. Review of Systems: No CV, , pulmonary, eye system symptoms on review. Mental Status Exam: The patient is reasonably oriented. Speech moderate latency. Often response is monosyllabic. Abstraction is fair. Computation is impaired. Language function is intact. Mood and affect somewhat withdrawn. Laboratory Data: Reviewed. Impression: Major depressive disorder rule out psychotic features. Lewy body dementia early with delusion, depression. Anxiety disorder unspecified. Impulse control disorder unspecified. Plan: No change from initial note. Continue the reduced Risperdal 0.5 mg h.s., and rest of the psychotropics mentioned in my initial note. Assessment: Vital Signs/I&O: Vital Signs Date Time Temp Pulse Resp B/P (MAP) Pulse Ox O2 Delivery O2 Flow Rate FiO2 09/16/20 06:00 97.9 60 18 150/84 (106) 95 09/12/20 06:21 Room Air I & O 09/15/20 09/15/20 09/16/20 15:00 23:00 07:00 Intake Total 720 ml 360 ml Balance 720 ml 360 ml Current Medications: Meds: Current Medications Medications (Trade) Dose Ordered Sig/Gloria Route PRN Reason Start Time Stop Time Status Last Admin Dose Admin Acetaminophen (Tylenol) 500 mg HS PO 09/01/20 21:00 09/15/20 19:55 Apixaban (Eliquis) 5 mg BID PO 09/01/20 21:00 09/15/20 19:55 Bumetanide (Bumex) 1 mg DAILY PO 09/02/20 09:00 09/08/20 12:01 DC 09/08/20 08:01 Carbidopa/Levodopa (Sinemet 10/100) 0.5 tab [id number] PO 09/01/20 17:00 09/15/20 19:57 Diclofenac Sodium (Voltaren) 1 camilla PRN BID PRN TP MUSCLE PAIN 09/01/20 15:30 Divalproex Sodium (Depakote Sprinkles) 125 mg DAILY PO 09/02/20 09:00 09/02/20 09:00 DC 09/02/20 08:22 Divalproex Sodium (Depakote Er) 500 mg QHS PO 09/01/20 21:00 09/15/20 19:54 Docusate Sodium (Colace) 100 mg DAILY PO 09/02/20 09:00 09/15/20 05:47 Gabapentin (Neurontin) 300 mg HS PO 09/01/20 21:00 09/15/20 19:58 Ibuprofen (Motrin) 400 mg PRN Q8HRS PRN PO PAIN 09/01/20 15:30 UNV Levothyroxine Sodium (Synthroid) 25 mcg DAILYAC PO 09/02/20 07:30 09/01/20 19:50 DC Magnesium Hydroxide (Milk Of Magnesia) 2,400 mg PRN QHS PRN PO CONSTIPATION, 2ND CHOICE 09/01/20 15:30 09/04/20 05:12 Memantine (Namenda) 10 mg [id number] PO 09/01/20 16:30 09/15/20 17:13 Metoprolol Succinate (Toprol Xl) 12.5 mg BID PO 09/01/20 21:00 09/15/20 19:58 Olanzapine (ZyPREXA ZYDIS) 5 mg PRN Q12HR PRN PO ANXIETY / AGITATION 09/01/20 15:30 Polyethylene Glycol (miraLAX) 17 gm DAILY PO 09/02/20 09:00 09/15/20 05:45 Polyethylene Glycol (miraLAX) 17 gm PRN DAILY PRN PO CONSTIPATION, 1ST CHOICE 09/01/20 15:30 Potassium Chloride (Klor-Con) 20 meq BID PO 09/01/20 21:00 09/08/20 12:01 DC 09/08/20 08:01 Risperidone (RisperDAL) 0.5 mg TID PO 09/01/20 21:00 09/14/20 17:54 DC 09/14/20 06:05 Rivastigmine (Exelon 13.3mg) 1 patch DAILY TD 09/02/20 09:00 09/15/20 05:51 Senna/Docusate Sodium (Senna Plus) 1 tab DAILY PO 09/02/20 09:00 09/15/20 05:48 Sertraline HCl (Zoloft) 50 mg DAILY PO 09/02/20 09:00 09/02/20 16:48 DC 09/02/20 08:22 Tamsulosin HCl (Flomax) 0.4 mg DAILY PO 09/02/20 09:00 09/15/20 05:48 Ascorbic Acid (Vitamin C) 500 mg DAILY PO 09/02/20 09:00 09/15/20 05:51 Atorvastatin Calcium (Lipitor) 40 mg QHS PO 09/01/20 21:00 09/15/20 19:56 Non-Formulary Medication (Capsaicin/ Menthol (Salonpas Gel-Patch Hot)) 1 each HS TP 09/01/20 21:00 UNV Chlorhexidine Gluconate (Peridex) 15 ml BID SWSP 09/01/20 21:00 09/15/20 19:53 Multi-Ingred Cream/Lotion/Oil/ Oint (Hydrocerin) 1 camilla PRN BID PRN TP dry skin 09/01/20 16:45 Melatonin (Melatonin) 3 mg HS PO 09/01/20 21:00 09/15/20 19:53 Non-Formulary Medication (Menthol (Biofreeze)) 1 camilla PRN TID PRN TOP MUSCLE PAIN 09/01/20 15:30 UNV Cyclobenzaprine HCl (Flexeril) 10 mg PRN TID PRN PO low back pain 09/01/20 17:00 09/15/20 19:59 Oxybutynin Chloride (Ditropan) 5 mg BID PO 09/01/20 21:00 09/15/20 19:54 Timolol Maleate (Timoptic 0.5% [facility]) 1 drop BID OU 09/01/20 21:00 09/15/20 19:53 Multi-Ingredient Ointment (Analgesic [place]) 1 camilla PRN QID PRN TP MUSCLE PAIN 09/01/20 16:15 Cancel Al Hydroxide/Mg Hydroxide (Mylanta Plus Xs) 15 ml PRN AFTMEALHC PRN PO DYSPEPSIA 09/01/20 16:15 Levothyroxine Sodium (Synthroid) 25 mcg DAILY06 PO 09/02/20 06:00 09/16/20 05:18 Divalproex Sodium (Depakote Er) 125 mg DAILY PO 09/02/20 09:00 Cancel Sertraline HCl (Zoloft) 75 mg DAILY PO 09/03/20 09:00 09/05/20 11:00 DC 09/05/20 07:45 Sertraline HCl (Zoloft) 100 mg DAILY PO 09/06/20 09:00 09/12/20 18:22 DC 09/12/20 10:10 Divalproex Sodium (Depakote Sprinkles) 125 mg DAILY PO 09/03/20 09:00 09/04/20 17:23 DC 09/04/20 10:52 Divalproex Sodium (Depakote Sprinkles) 250 mg DAILY PO 09/05/20 09:00 09/15/20 05:47 Bumetanide (Bumex) 2 mg DAILY PO 09/09/20 09:00 09/15/20 08:43 Potassium Chloride (Klor-Con) 20 meq TID PO 09/08/20 14:00 09/15/20 19:57 Bumetanide (Bumex) 1 mg 1X ONCE PO 09/08/20 14:00 09/08/20 14:01 DC 09/08/20 14:00 Bupropion HCl (Wellbutrin Xl) 150 mg DAILY PO 09/13/20 09:00 09/15/20 05:47 Risperidone (RisperDAL) 0.5 mg QHS PO 09/15/20 21:00 09/15/20 19:58 Current Medications Medications (Trade) Dose Ordered Sig/Gloria Route PRN Reason Start Time Stop Time Status Last Admin Dose Admin Risperidone (RisperDAL) 0.5 mg QHS PO 09/15/20 21:00 09/15/20 19:58 I have reviewed the current psychotropics carefully including drug interactions. Risk benefit ratio favors no change other than as noted in my dictated progress note. Diagnosis: Problems: (1) Anxiety disorder (2) Impulse control disorder (3) Lewy body dementia with behavioral disturbance (4) Dementia, vascular, with delusions (5) Dementia in Alzheimer's disease with delusions (6) Major neurocognitive disorder (7) Major depressive disorder with psychotic features CAMERON ROSAS MD Sep 16, 2020 08:04
[2020-09-16] MEDS: BUMETANIDE 1 MG TABLET PO SCH (09:00)
[2020-09-16] MEDS: CHLORHEXIDINE 0.12% 15 ML MOUTHWASH. SWSP SCH ×2 (09:14→19:43)
[2020-09-16] MEDS: POLYETHYLENE GLYCOL 3350 17 GM PACKET. PO SCH (09:14)
[2020-09-16] MEDS: TIMOLOL 0.5% OPHTH SOLUTION 5ML BOTTLE. OU SCH ×2 (09:14→19:43)
[2020-09-16] MEDS: RIVASTIGMINE 13.3MG PATCH. TD SCH (09:14)
[2020-09-16] MEDS: DIVALPROEX 125 MG CAP.SPRINK PO SCH (09:15)
[2020-09-16] MEDS: OXYBUTYNIN CHLORIDE 5 MG TABLET PO SCH ×2 (09:15→19:46)
[2020-09-16] MEDS: CARBIDOPA/LEVODOPA 10/100MG TABLET PO SCH ×4 (09:16→19:50)
[2020-09-16] MEDS: ASCORBIC ACID 500 MG TABLET PO SCH (09:16)
[2020-09-16] MEDS: TAMSULOSIN 0.4 MG CAP.ER.24H. PO SCH (09:16)
[2020-09-16] MEDS: APIXABAN 5 MG TABLET. PO SCH ×2 (09:16→19:45)
[2020-09-16] MEDS: MEMANTINE 10 MG TABLET. PO SCH ×2 (09:16→17:28)
[2020-09-16] MEDS: DOCUSATE SODIUM 100 MG CAPSULE PO SCH (09:16)
[2020-09-16] MEDS: METOPROLOL SUCC 24HR ER 25 MG TAB.ER.24H. PO SCH ×2 (09:16→19:44)
[2020-09-16] MEDS: SENNOSIDES/DOCUSATE 8.6/50MG TABLET. PO SCH (09:16)
[2020-09-16] MEDS: POTASSIUM CHLORIDE 20 MEQ TABLET.ER. PO SCH ×3 (09:16→19:45)
[2020-09-16] MEDS: buPROPion XL 150 MG TAB.ER.24H PO SCH (09:17)
[2020-09-16 15:57] VITALS: BP 116/69
[2020-09-16] MEDS: ATORVASTATIN CALCIUM 20 MG TABLET PO SCH (19:44)
[2020-09-16] MEDS: ACETAMINOPHEN 500 MG TABLET PO SCH (19:44)
[2020-09-16] MEDS: DIVALPROEX ER 500 MG TAB.ER.24H PO SCH (19:46)
[2020-09-16] MEDS: risperiDONE 0.5 MG TABLET. PO SCH (19:46)
[2020-09-16] MEDS: MELATONIN 3 MG TABLET PO SCH (19:46)
[2020-09-16] MEDS: GABAPENTIN 300 MG CAPSULE. PO SCH (19:50)
[2020-09-16] MEDS: CYCLOBENZAPRINE 10 MG TABLET. PO PRN (19:50)
[2020-09-17] MEDS: LEVOTHYROXINE 25 MCG TABLET. PO SCH (04:59)
[2020-09-17 06:27] VITALS: BP 135/74
[2020-09-17 06:36] LABS: BASO # 0.1 x10^3/uL (0.0-0.2); BASO % 1 % (0-3); EOS # 0.3 x10^3/uL (0.0-0.7); EOS % 5 % (0-3); HEMATOCRIT 39.1 % (39.0-53.0); HEMOGLOBIN 13.3 g/dL (13.0-17.5); LYMPH # 3.1 x10^3/uL (1.0-4.8); LYMPH % 45 % (24-48); MEAN CORPUSCULAR HEMOGLOBIN 31 pg (25-35); MEAN CORPUSCULAR HGB CONC 34 g/dL (31-37); MEAN CORPUSCULAR VOLUME 92 fL (79-100); MONO # 0.7 x10^3/uL (0.0-1.1); MONO % 10 % (0-9); NEUT # 2.8 x10^3uL (1.8-7.7); NEUT % 40 % (31-73); PLATELET COUNT 143 x10^3/uL (140-400); RED BLOOD COUNT 4.24 x10^6/uL (4.30-5.70); RED CELL DISTRIBUTION WIDTH 14.6 % (11.5-14.5)
[2020-09-17 07:36] LABS: ALBUMIN/GLOBULIN RATIO 0.8 (1.0-1.7); CALCIUM 8.7 mg/dL (8.5-10.1); GFR 73.9; POTASSIUM 3.7 mmol/L (3.5-5.1); TOTAL BILIRUBIN 0.6 mg/dL (0.2-1.0); TOTAL PROTEIN 6.6 g/dL (6.4-8.2)
[2020-09-17] MEDS: BUMETANIDE 1 MG TABLET PO SCH (09:00)
[2020-09-17] MEDS: POTASSIUM CHLORIDE 20 MEQ TABLET.ER. PO SCH ×3 (09:16→19:41)
[2020-09-17] MEDS: ASCORBIC ACID 500 MG TABLET PO SCH (09:16)
[2020-09-17] MEDS: DOCUSATE SODIUM 100 MG CAPSULE PO SCH (09:16)
[2020-09-17] MEDS: SENNOSIDES/DOCUSATE 8.6/50MG TABLET. PO SCH (09:16)
[2020-09-17] MEDS: METOPROLOL SUCC 24HR ER 25 MG TAB.ER.24H. PO SCH ×2 (09:16→19:39)
[2020-09-17] MEDS: APIXABAN 5 MG TABLET. PO SCH ×2 (09:16→19:40)
[2020-09-17] MEDS: TAMSULOSIN 0.4 MG CAP.ER.24H. PO SCH (09:16)
[2020-09-17] MEDS: CARBIDOPA/LEVODOPA 10/100MG TABLET PO SCH ×4 (09:16→19:40)
[2020-09-17] MEDS: buPROPion XL 150 MG TAB.ER.24H PO SCH (09:16)
[2020-09-17] MEDS: DIVALPROEX 125 MG CAP.SPRINK PO SCH (09:16)
[2020-09-17] MEDS: MEMANTINE 10 MG TABLET. PO SCH ×2 (09:17→16:56)
[2020-09-17] MEDS: CHLORHEXIDINE 0.12% 15 ML MOUTHWASH. SWSP SCH ×2 (09:17→19:38)
[2020-09-17] MEDS: RIVASTIGMINE 13.3MG PATCH. TD SCH (09:17)
[2020-09-17] MEDS: OXYBUTYNIN CHLORIDE 5 MG TABLET PO SCH ×2 (09:17→19:41)
[2020-09-17] MEDS: POLYETHYLENE GLYCOL 3350 17 GM PACKET. PO SCH (09:17)
[2020-09-17] MEDS: TIMOLOL 0.5% OPHTH SOLUTION 5ML BOTTLE. OU SCH ×2 (09:19→19:41)
--- NOTE | 2020-09-17 13:36 | TX PLAN ---
Interdisciplinary Tx Plan Admission Information Sep 01, 2020 at 14:55 Legal Status (on Admission): Voluntary DPOA/Guardian Name: Margy Stinson Contact Other Contact Name: [facility] Other Contact Verified Code Status: Full Code Allergies: Coded Allergies: No Known Drug Allergies (Unverified , 09/01/20) Diagnoses Primary Diagnosis: Lewy Body Dementia, Major Neurocognitive D/O with BD Reasons for Admission: Aggressive, Hallucinations, Confusion/Disoriented Problem in Patient's Words: He needs his medications adjusted. Additional Admission Comments: According to the intake, increased confusion, called 911 about missing kids, hallucinationg, labile behaviors, aggressive-pumping fist at peers. Problems Active Problems: Confusion Hallucination Inactive Problems: Medication Management Pt Strengths/Limitations Ability for [place]: Poor Cognitive Functioning/Ability: Fair Communication Skills/Ability: Fair Financial Resources: Good Insight/Judgement: Poor Intellectual Ability: Fair Physical Health: Poor Social Skills: Fair Stability in Family: Good Stability in School/Work: Poor Verbal Skills: Good Discharge Criteria Discharge Criteria: Adequate arrangements @DC, Improved behavior, Improved mood/thought Preliminary Discharge Plan Preliminary DC Plan: Current Living Arrange. Special Precautions Fall Risk: Low Initial D/C Plan Pt to return to [facility] Identified Discharge Needs: Continued psych services Currently Utilized Resources Currently Utilized Resources/P: Primary Care Physician Referrals Community Resources: Neurology follow-up Psychiatric services Identified Problems/Hx/Goals Objectives/Short-Term Goals Short Term Goals: Dec. Aggression, Dec. Hallucination/Delus, Dec. Outbursts, Promote Coping Skill Short Term Goals in Patient's: "I thought I was doing okay". Interventions/Frequency Staff Interventions/Frequency&: Psychiatrist to asses pt at least 3x per week for medication management. Social Work to assess pt at least 2x per week to identify barriers surrounding care and discharge planning. Nursing to complete 15 minute checks daily, assess behaviors and medication effects. 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 Pt is retired Education: Pt attended and received his Bachelors in Anthropology, Masters in Management and then attended school for respiratory therapy. Community Follow-up Primary Care Physician Updates to Memory Care facility Community Provider/Family Inpu: Pt was doing well for sometime. It was just evident that with his increase in hallucinations, that he needed an evaluation for a potential increase in his medications. Treatment Plan Explained Patient/Childcare Worker had this treatment plan explained to him/her as indicated by the signature below and has been given the opportunity to ask questions and make suggestions: Date: Patient/Childcare Worker Signature: Status Update Update Pt is pleasantly confused and wandering the unit. Pt is eating 75% of meals and sleeping 8 hours per night. Pt reports having a decrease in hallucinations but the team would like to have that input from pt to make sure that she agr ees. Pt did sleep in the AM but appears to be doing. Pt initially was scheduled for discharge on Thursday. Pt will now look at discharge back to [place] on . Pt will need a second covid swab on Thursday to prepare for his return to [place]. SARA VIVAS Sep 17, 2020 13:36
[2020-09-17 15:15] VITALS: BP 114/76
[2020-09-17] MEDS: GABAPENTIN 300 MG CAPSULE. PO SCH (19:39)
[2020-09-17] MEDS: ATORVASTATIN CALCIUM 20 MG TABLET PO SCH (19:39)
[2020-09-17] MEDS: risperiDONE 0.5 MG TABLET. PO SCH (19:39)
[2020-09-17] MEDS: MELATONIN 3 MG TABLET PO SCH (19:40)
[2020-09-17] MEDS: DIVALPROEX ER 500 MG TAB.ER.24H PO SCH (19:40)
[2020-09-17] MEDS: ACETAMINOPHEN 500 MG TABLET PO SCH (19:40)
--- NOTE | 2020-09-17 21:05 | PDOC ---
Exam Note: Michael Note: This note is a late entry for 09/16/2020 covers elements not covered in my initial note. Subjective: The patient was seen on telehealth rounds in the evening of 09/16/2020 with Zack BRASHER. He slept 8 hours previous night. The patient has been up and about ambulating better, walking faster. He had a long conversation with his . Review of Systems: No CV, , pulmonary, eye system symptoms on review. Mental Status Exam: The patient is oriented to himself and situation. Speech moderate latency. Often response is monosyllabic. Abstraction is fair. Comp utation is impaired. Language function is intact. Mood and affect withdrawn, less depressed. Laboratory Data: Reviewed. Impression: Major depressive disorder rule out psychotic features. Lewy body dementia early with delusion, depression. Anxiety disorder unspecified. Impulse control disorder unspecified. Plan: No change from initial note. Assessment: Vital Signs/I&O: Vital Signs Date Time Temp Pulse Resp B/P (MAP) Pulse Ox O2 Delivery O2 Flow Rate FiO2 09/17/20 19:39 70 114/76 09/17/20 15:15 96.9 17 97 09/16/20 15:57 Room Air I & O 09/16/20 09/16/20 09/17/20 15:00 23:00 07:00 Intake Total 600 ml 100 ml Balance 600 ml 100 ml Labs: Laboratory Tests Test 09/17/20 06:14 White Blood Count 7.0 x10^3/uL (4.0-11.0) Red Blood Count 4.24 x10^6/uL (4.30-5.70) L Hemoglobin 13.3 g/dL (13.0-17.5) Hematocrit 39.1 % (39.0-53.0) Mean Corpuscular Volume 92 fL (79-100) Mean Corpuscular Hemoglobin 31 pg (25-35) Mean Corpuscular Hemoglobin Concent 34 g/dL (31-37) Red Cell Distribution Width 14.6 % (11.5-14.5) H Platelet Count 143 x10^3/uL (140-400) Neutrophils (%) (Auto) 40 % (31-73) Lymphocytes (%) (Auto) 45 % (24-48) Monocytes (%) (Auto) 10 % (0-9) H Eosinophils (%) (Auto) 5 % (0-3) H Basophils (%) (Auto) 1 % (0-3) Neutrophils # (Auto) 2.8 x10^3uL (1.8-7.7) Lymphocytes # (Auto) 3.1 x10^3/uL (1.0-4.8) Monocytes # (Auto) 0.7 x10^3/uL (0.0-1.1) Eosinophils # (Auto) 0.3 x10^3/uL (0.0-0.7) Basophils # (Auto) 0.1 x10^3/uL (0.0-0.2) Sodium Level 144 mmol/L (136-145) Potassium Level 3.7 mmol/L (3.5-5.1) Chloride Level 107 mmol/L (98-107) Carbon Dioxide Level 30 mmol/L (21-32) Anion Gap 7 (6-14) Blood Urea Nitrogen 17 mg/dL (8-26) Creatinine 1.0 mg/dL (0.7-1.3) Estimated GFR (Cockcroft-Gault) 73.9 BUN/Creatinine Ratio 17 (6-20) Glucose Level 88 mg/dL (70-99) Calcium Level 8.7 mg/dL (8.5-10.1) Total Bilirubin 0.6 mg/dL (0.2-1.0) Aspartate Amino Transferase (AST) 21 U/L (15-37) Alanine Aminotransferase (ALT) 19 U/L (16-63) Alkaline Phosphatase 65 U/L (46-116) Total Protein 6.6 g/dL (6.4-8.2) Albumin 3.0 g/dL (3.4-5.0) L Albumin/Globulin Ratio 0.8 (1.0-1.7) L Current Medications: Meds: Laboratory Tests Test 09/17/20 06:14 White Blood Count 7.0 x10^3/uL Red Blood Count 4.24 x10^6/uL Hemoglobin 13.3 g/dL Hematocrit 39.1 % Mean Corpuscular Volume 92 fL Mean Corpuscular Hemoglobin 31 pg Mean Corpuscular Hemoglobin Concent 34 g/dL Red Cell Distribution Width 14.6 % Platelet Count 143 x10^3/uL Neutrophils (%) (Auto) 40 % Lymphocytes (%) (Auto) 45 % Monocytes (%) (Auto) 10 % Eosinophils (%) (Auto) 5 % Basophils (%) (Auto) 1 % Neutrophils # (Auto) 2.8 x10^3uL Lymphocytes # (Auto) 3.1 x10^3/uL Monocytes # (Auto) 0.7 x10^3/uL Eosinophils # (Auto) 0.3 x10^3/uL Basophils # (Auto) 0.1 x10^3/uL Sodium Level 144 mmol/L Potassium Level 3.7 mmol/L Chloride Level 107 mmol/L Carbon Dioxide Level 30 mmol/L Anion Gap 7 Blood Urea Nitrogen 17 mg/dL Creatinine 1.0 mg/dL Estimated GFR (Cockcroft-Gault) 73.9 BUN/Creatinine Ratio 17 Glucose Level 88 mg/dL Calcium Level 8.7 mg/dL Total Bilirubin 0.6 mg/dL Aspartate Amino Transf (AST/SGOT) 21 U/L Alanine Aminotransferase (ALT/SGPT) 19 U/L Alkaline Phosphatase 65 U/L Total Protein 6.6 g/dL Albumin 3.0 g/dL Albumin/Globulin Ratio 0.8 Current Medications Medications (Trade) Dose Ordered Sig/Gloria Route PRN Reason Start Time Stop Time Status Last Admin Dose Admin Acetaminophen (Tylenol) 500 mg HS PO 09/01/20 21:00 09/17/20 19:40 Apixaban (Eliquis) 5 mg BID PO 09/01/20 21:00 09/17/20 19:40 Bumetanide (Bumex) 1 mg DAILY PO 09/02/20 09:00 09/08/20 12:01 DC 09/08/20 08:01 Carbidopa/Levodopa (Sinemet 10/100) 0.5 tab [id number] PO 09/01/20 17:00 09/17/20 19:40 Diclofenac Sodium (Voltaren) 1 camilla PRN BID PRN TP MUSCLE PAIN 09/01/20 15:30 Divalproex Sodium (Depakote Sprinkles) 125 mg DAILY PO 09/02/20 09:00 09/02/20 09:00 DC 09/02/20 08:22 Divalproex Sodium (Depakote Er) 500 mg QHS PO 09/01/20 21:00 09/17/20 19:40 Docusate Sodium (Colace) 100 mg DAILY PO 09/02/20 09:00 09/17/20 09:16 Gabapentin (Neurontin) 300 mg HS PO 09/01/20 21:00 09/17/20 19:39 Ibuprofen (Motrin) 400 mg PRN Q8HRS PRN PO PAIN 09/01/20 15:30 UNV Levothyroxine Sodium (Synthroid) 25 mcg DAILYAC PO 09/02/20 07:30 09/01/20 19:50 DC Magnesium Hydroxide (Milk Of Magnesia) 2,400 mg PRN QHS PRN PO CONSTIPATION, 2ND CHOICE 09/01/20 15:30 09/04/20 05:12 Memantine (Namenda) 10 mg [id number] PO 09/01/20 16:30 09/17/20 16:56 Metoprolol Succinate (Toprol Xl) 12.5 mg BID PO 09/01/20 21:00 09/17/20 19:39 Olanzapine (ZyPREXA ZYDIS) 5 mg PRN Q12HR PRN PO ANXIETY / AGITATION 09/01/20 15:30 Polyethylene Glycol (miraLAX) 17 gm DAILY PO 09/02/20 09:00 09/17/20 09:17 Polyethylene Glycol (miraLAX) 17 gm PRN DAILY PRN PO CONSTIPATION, 1ST CHOICE 09/01/20 15:30 Potassium Chloride (Klor-Con) 20 meq BID PO 09/01/20 21:00 09/08/20 12:01 DC 09/08/20 08:01 Risperidone (RisperDAL) 0.5 mg TID PO 09/01/20 21:00 09/14/20 17:54 DC 09/14/20 06:05 Rivastigmine (Exelon 13.3mg) 1 patch DAILY TD 09/02/20 09:00 09/17/20 09:17 Senna/Docusate Sodium (Senna Plus) 1 tab DAILY PO 09/02/20 09:00 09/17/20 09:16 Sertraline HCl (Zoloft) 50 mg DAILY PO 09/02/20 09:00 09/02/20 16:48 DC 09/02/20 08:22 Tamsulosin HCl (Flomax) 0.4 mg DAILY PO 09/02/20 09:00 09/17/20 09:16 Ascorbic Acid (Vitamin C) 500 mg DAILY PO 09/02/20 09:00 09/17/20 09:16 Atorvastatin Calcium (Lipitor) 40 mg QHS PO 09/01/20 21:00 09/17/20 19:39 Non-Formulary Medication (Capsaicin/ Menthol (Salonpas Gel-Patch Hot)) 1 each HS TP 09/01/20 21:00 UNV Chlorhexidine Gluconate (Peridex) 15 ml BID SWSP 09/01/20 21:00 09/17/20 19:38 Multi-Ingred Cream/Lotion/Oil/ Oint (Hydrocerin) 1 [place] PRN BID PRN TP dry skin 09/01/20 16:45 Melatonin (Melatonin) 3 mg HS PO 09/01/20 21:00 09/17/20 19:40 Non-Formulary Medication (Menthol (Biofreeze)) 1 [place]illa PRN TID PRN TOP MUSCLE PAIN 09/01/20 15:30 UNV Cyclobenzaprine HCl (Flexeril) 10 mg PRN TID PRN PO low back pain 09/01/20 17:00 09/16/20 19:50 Oxybutynin Chloride (Ditropan) 5 mg BID PO 09/01/20 21:00 09/17/20 19:41 Timolol Maleate (Timoptic 0.5% [facility]) 1 drop BID OU 09/01/20 21:00 09/17/20 19:41 Multi-Ingredient Ointment (Analgesic [place]) 1 camilla PRN QID PRN TP MUSCLE PAIN 09/01/20 16:15 Cancel Al Hydroxide/Mg Hydroxide (Mylanta Plus Xs) 15 ml PRN AFTMEALHC PRN PO DYSPEPSIA 09/01/20 16:15 Levothyroxine Sodium (Synthroid) 25 mcg DAILY06 PO 09/02/20 06:00 09/17/20 04:59 Divalproex Sodium (Depakote Er) 125 mg DAILY PO 09/02/20 09:00 Cancel Sertraline HCl (Zoloft) 75 mg DAILY PO 09/03/20 09:00 09/05/20 11:00 DC 09/05/20 07:45 Sertraline HCl (Zoloft) 100 mg DAILY PO 09/06/20 09:00 09/12/20 18:22 DC 09/12/20 10:10 Divalproex Sodium (Depakote Sprinkles) 125 mg DAILY PO 09/03/20 09:00 09/04/20 17:23 DC 09/04/20 10:52 Divalproex Sodium (Depakote Sprinkles) 250 mg DAILY PO 09/05/20 09:00 09/17/20 09:16 Bumetanide (Bumex) 2 mg DAILY PO 09/09/20 09:00 09/17/20 09:00 Potassium Chloride (Klor-Con) 20 meq TID PO 09/08/20 14:00 09/17/20 19:41 Bumetanide (Bumex) 1 mg 1X ONCE PO 09/08/20 14:00 09/08/20 14:01 DC 09/08/20 14:00 Bupropion HCl (Wellbutrin Xl) 150 mg DAILY PO 09/13/20 09:00 09/17/20 09:16 Risperidone (RisperDAL) 0.5 mg QHS PO 09/15/20 21:00 09/17/20 19:39 I have reviewed the current psychotropics carefully including drug interactions. Risk benefit ratio favors no change other than as noted in my dictated progress note. Diagnosis: Problems: (1) Anxiety disorder (2) Impulse control disorder (3) Lewy body dementia with behavioral disturbance (4) Dementia, vascular, with delusions (5) Dementia in Alzheimer's disease with delusions (6) Major neurocognitive disorder (7) Major depressive disorder with psychotic features CAMERON ROSAS MD Sep 17, 2020 21:05
--- NOTE | 2020-09-17 21:29 | PDOC ---
Exam Note: Michael Note: Please also refer to the separate dictated note~for this date of service dictated separately.~Patient seen individually. Discussed the patient with Nursing staff reviewed the chart.~Reviewed interim history and current functioning. Reviewed vital signs,~Labs/ Radiology~and current medications noted below. Continue current treatment with the changes noted in the dictated addendum note Assessment: Vital Signs/I&O: Vital Signs Date Time Temp Pulse Resp B/P (MAP) Pulse Ox O2 Delivery O2 Flow Rate FiO2 09/17/20 19:39 70 114/76 09/17/20 15:15 96.9 17 97 09/16/20 15:57 Room Air I & O 09/16/20 09/16/20 09/17/20 14:59 22:59 06:59 Intake Total 600 ml 100 ml Balance 600 ml 100 ml Labs: Laboratory Tests Test 09/17/20 06:14 White Blood Count 7.0 x10^3/uL (4.0-11.0) Red Blood Count 4.24 x10^6/uL (4.30-5.70) L Hemoglobin 13.3 g/dL (13.0-17.5) Hematocrit 39.1 % (39.0-53.0) Mean Corpuscular Volume 92 fL (79-100) Mean Corpuscular Hemoglobin 31 pg (25-35) Mean Corpuscular Hemoglobin Concent 34 g/dL (31-37) Red Cell Distribution Width 14.6 % (11.5-14.5) H Platelet Count 143 x10^3/uL (140-400) Neutrophils (%) (Auto) 40 % (31-73) Lymphocytes (%) (Auto) 45 % (24-48) Monocytes (%) (Auto) 10 % (0-9) H Eosinophils (%) (Auto) 5 % (0-3) H Basophils (%) (Auto) 1 % (0-3) Neutrophils # (Auto) 2.8 x10^3uL (1.8-7.7) Lymphocytes # (Auto) 3.1 x10^3/uL (1.0-4.8) Monocytes # (Auto) 0.7 x10^3/uL (0.0-1.1) Eosinophils # (Auto) 0.3 x10^3/uL (0.0-0.7) Basophils # (Auto) 0.1 x10^3/uL (0.0-0.2) Sodium Level 144 mmol/L (136-145) Potassium Level 3.7 mmol/L (3.5-5.1) Chloride Level 107 mmol/L (98-107) Carbon Dioxide Level 30 mmol/L (21-32) Anion Gap 7 (6-14) Blood Urea Nitrogen 17 mg/dL (8-26) Creatinine 1.0 mg/dL (0.7-1.3) Estimated GFR (Cockcroft-Gault) 73.9 BUN/Creatinine Ratio 17 (6-20) Glucose Level 88 mg/dL (70-99) Calcium Level 8.7 mg/dL (8.5-10.1) Total Bilirubin 0.6 mg/dL (0.2-1.0) Aspartate Amino Transferase (AST) 21 U/L (15-37) Alanine Aminotransferase (ALT) 19 U/L (16-63) Alkaline Phosphatase 65 U/L (46-116) Total Protein 6.6 g/dL (6.4-8.2) Albumin 3.0 g/dL (3.4-5.0) L Albumin/Globulin Ratio 0.8 (1.0-1.7) L Current Medications: I have reviewed the current psychotropics carefully including drug interactions. Risk benefit ratio favors no change other than as noted in my dictated progress note. Diagnosis: Problems: (1) Anxiety disorder (2) Impulse control disorder (3) Lewy body dementia with behavioral disturbance (4) Dementia, vascular, with delusions (5) Dementia in Alzheimer's disease with delusions (6) Major neurocognitive disorder (7) Major depressive disorder with psychotic features CAMERON ROSAS MD Sep 17, 2020 21:29
[2020-09-18] MEDS: LEVOTHYROXINE 25 MCG TABLET. PO SCH (05:34)
[2020-09-18 06:16] VITALS: BP 148/87
--- NOTE | 2020-09-18 08:30 | PDOC ---
Exam Note: Michael Note: This note is a late entry for 09/17/2020 covers elements not covered in my initial note. Subjective: The patient was seen face to face in the morning of 09/17/2020 for a treatment team meeting with Karina Blanton, Lissy Delgado and Fabiola (director social service), Serina Cosme, activity therapy and Maris BRASHER, reviewed the chart. He slept 8-1/4 hours previous night. Appetite is 75%. The patient is ambulating much better since Risperdal was reduced. He denies any overt hallucinations. I met with him in the evening at length to question him on this. Review of Systems: Ambulation still somewhat impaired. No CV, , pulmonary, eye system symptoms on review. Mental Status Exam: The patient is reasonably oriented. Speech is coherent, has some latency. Often response is monosyllabic. Abstraction is fair. Computation is impaired. Language function is intact. Attention span is short. Mood and affect somewhat withdrawn. Laboratory Data: Reviewed. Impression: Major depressive disorder rule out psychotic features. Lewy body dementia early with delusion, depression. Anxiety disorder unspecified. Impulse control disorder unspecified. Plan: No change from initial note. Assessment: Vital Signs/I&O: Vital Signs Date Time Temp Pulse Resp B/P (MAP) Pulse Ox O2 Delivery O2 Flow Rate FiO2 09/18/20 06:16 97.4 60 16 148/87 (107) 98 09/16/20 15:57 Room Air I & O 09/17/20 09/17/20 09/18/20 15:00 23:00 07:00 Intake Total 840 ml 460 ml Balance 840 ml 460 ml Current Medications: Meds: Current Medications Medications (Trade) Dose Ordered Sig/Gloria Route PRN Reason Start Time Stop Time Status Last Admin Dose Admin Acetaminophen (Tylenol) 500 mg HS PO 09/01/20 21:00 09/17/20 19:40 Apixaban (Eliquis) 5 mg BID PO 09/01/20 21:00 09/17/20 19:40 Bumetanide (Bumex) 1 mg DAILY PO 09/02/20 09:00 09/08/20 12:01 DC 09/08/20 08:01 Carbidopa/Levodopa (Sinemet 10/100) 0.5 tab [id number] PO 09/01/20 17:00 09/17/20 19:40 Diclofenac Sodium (Voltaren) 1 camilla PRN BID PRN TP MUSCLE PAIN 09/01/20 15:30 Divalproex Sodium (Depakote Sprinkles) 125 mg DAILY PO 09/02/20 09:00 09/02/20 09:00 DC 09/02/20 08:22 Divalproex Sodium (Depakote Er) 500 mg QHS PO 09/01/20 21:00 09/17/20 19:40 Docusate Sodium (Colace) 100 mg DAILY PO 09/02/20 09:00 09/17/20 09:16 Gabapentin (Neurontin) 300 mg HS PO 09/01/20 21:00 09/17/20 19:39 Ibuprofen (Motrin) 400 mg PRN Q8HRS PRN PO PAIN 09/01/20 15:30 UNV Levothyroxine Sodium (Synthroid) 25 mcg DAILYAC PO 09/02/20 07:30 09/01/20 19:50 DC Magnesium Hydroxide (Milk Of Magnesia) 2,400 mg PRN QHS PRN PO CONSTIPATION, 2ND CHOICE 09/01/20 15:30 09/04/20 05:12 Memantine (Namenda) 10 mg [id number] PO 09/01/20 16:30 09/17/20 16:56 Metoprolol Succinate (Toprol Xl) 12.5 mg BID PO 09/01/20 21:00 09/17/20 19:39 Olanzapine (ZyPREXA ZYDIS) 5 mg PRN Q12HR PRN PO ANXIETY / AGITATION 09/01/20 15:30 Polyethylene Glycol (miraLAX) 17 gm DAILY PO 09/02/20 09:00 09/17/20 09:17 Polyethylene Glycol (miraLAX) 17 gm PRN DAILY PRN PO CONSTIPATION, 1ST CHOICE 09/01/20 15:30 Potassium Chloride (Klor-Con) 20 meq BID PO 09/01/20 21:00 09/08/20 12:01 DC 09/08/20 08:01 Risperidone (RisperDAL) 0.5 mg TID PO 09/01/20 21:00 09/14/20 17:54 DC 09/14/20 06:05 Rivastigmine (Exelon 13.3mg) 1 patch DAILY TD 09/02/20 09:00 09/17/20 09:17 Senna/Docusate Sodium (Senna Plus) 1 tab DAILY PO 09/02/20 09:00 09/17/20 09:16 Sertraline HCl (Zoloft) 50 mg DAILY PO 09/02/20 09:00 09/02/20 16:48 DC 09/02/20 08:22 Tamsulosin HCl (Flomax) 0.4 mg DAILY PO 09/02/20 09:00 09/17/20 09:16 Ascorbic Acid (Vitamin C) 500 mg DAILY PO 09/02/20 09:00 09/17/20 09:16 Atorvastatin Calcium (Lipitor) 40 mg QHS PO 09/01/20 21:00 09/17/20 19:39 Non-Formulary Medication (Capsaicin/ Menthol (Salonpas Gel-Patch Hot)) 1 each HS TP 09/01/20 21:00 UNV Chlorhexidine Gluconate (Peridex) 15 ml BID SWSP 09/01/20 21:00 09/17/20 19:38 Multi-Ingred Cream/Lotion/Oil/ Oint (Hydrocerin) 1 camilla PRN BID PRN TP dry skin 09/01/20 16:45 Melatonin (Melatonin) 3 mg HS PO 09/01/20 21:00 09/17/20 19:40 Non-Formulary Medication (Menthol (Biofreeze)) 1 camilla PRN TID PRN TOP MUSCLE PAIN 09/01/20 15:30 UNV Cyclobenzaprine HCl (Flexeril) 10 mg PRN TID PRN PO low back pain 09/01/20 17:00 09/16/20 19:50 Oxybutynin Chloride (Ditropan) 5 mg BID PO 09/01/20 21:00 09/17/20 19:41 Timolol Maleate (Timoptic 0.5% Oph) 1 drop BID OU 09/01/20 21:00 09/17/20 19:41 Multi-Ingredient Ointment (Analgesic [place]) 1 camilla PRN QID PRN TP MUSCLE PAIN 09/01/20 16:15 Cancel Al Hydroxide/Mg Hydroxide (Mylanta Plus Xs) 15 ml PRN AFTMEALHC PRN PO DYSPEPSIA 09/01/20 16:15 Levothyroxine Sodium (Synthroid) 25 mcg DAILY06 PO 09/02/20 06:00 09/18/20 05:34 Divalproex Sodium (Depakote Er) 125 mg DAILY PO 09/02/20 09:00 Cancel Sertraline HCl (Zoloft) 75 mg DAILY PO 09/03/20 09:00 09/05/20 11:00 DC 09/05/20 07:45 Sertraline HCl (Zoloft) 100 mg DAILY PO 09/06/20 09:00 09/12/20 18:22 DC 09/12/20 10:10 Divalproex Sodium (Depakote Sprinkles) 125 mg DAILY PO 09/03/20 09:00 09/04/20 17:23 DC 09/04/20 10:52 Divalproex Sodium (Depakote Sprinkles) 250 mg DAILY PO 09/05/20 09:00 09/17/20 09:16 Bumetanide (Bumex) 2 mg DAILY PO 09/09/20 09:00 09/17/20 09:00 Potassium Chloride (Klor-Con) 20 meq TID PO 09/08/20 14:00 09/17/20 19:41 Bumetanide (Bumex) 1 mg 1X ONCE PO 09/08/20 14:00 09/08/20 14:01 DC 09/08/20 14:00 Bupropion HCl (Wellbutrin Xl) 150 mg DAILY PO 09/13/20 09:00 09/17/20 09:16 Risperidone (RisperDAL) 0.5 mg QHS PO 09/15/20 21:00 09/17/20 19:39 I have reviewed the current psychotropics carefully including drug interactions. Risk benefit ratio favors no change other than as noted in my dictated progress note. Diagnosis: Problems: (1) Anxiety disorder (2) Impulse control disorder (3) Lewy body dementia with behavioral disturbance (4) Dementia, vascular, with delusions (5) Dementia in Alzheimer's disease with delusions (6) Major neurocognitive disorder (7) Major depressive disorder with psychotic features CAMERON ROSAS MD Sep 18, 2020 08:30
[2020-09-18] MEDS: CHLORHEXIDINE 0.12% 15 ML MOUTHWASH. SWSP SCH ×2 (08:49→19:55)
[2020-09-18] MEDS: TIMOLOL 0.5% OPHTH SOLUTION 5ML BOTTLE. OU SCH ×2 (08:50→19:55)
[2020-09-18] MEDS: RIVASTIGMINE 13.3MG PATCH. TD SCH (08:50)
[2020-09-18] MEDS: METOPROLOL SUCC 24HR ER 25 MG TAB.ER.24H. PO SCH ×2 (08:50→20:03)
[2020-09-18] MEDS: SENNOSIDES/DOCUSATE 8.6/50MG TABLET. PO SCH (08:50)
[2020-09-18] MEDS: POLYETHYLENE GLYCOL 3350 17 GM PACKET. PO SCH (08:50)
[2020-09-18] MEDS: POTASSIUM CHLORIDE 20 MEQ TABLET.ER. PO SCH ×3 (08:50→19:56)
[2020-09-18] MEDS: CARBIDOPA/LEVODOPA 10/100MG TABLET PO SCH ×4 (08:51→19:55)
[2020-09-18] MEDS: buPROPion XL 150 MG TAB.ER.24H PO SCH (08:51)
[2020-09-18] MEDS: DOCUSATE SODIUM 100 MG CAPSULE PO SCH (08:51)
[2020-09-18] MEDS: OXYBUTYNIN CHLORIDE 5 MG TABLET PO SCH ×2 (08:51→19:56)
[2020-09-18] MEDS: DIVALPROEX 125 MG CAP.SPRINK PO SCH (08:51)
[2020-09-18] MEDS: MEMANTINE 10 MG TABLET. PO SCH ×2 (08:51→17:02)
[2020-09-18] MEDS: TAMSULOSIN 0.4 MG CAP.ER.24H. PO SCH (08:51)
[2020-09-18] MEDS: ASCORBIC ACID 500 MG TABLET PO SCH (08:51)
[2020-09-18] MEDS: APIXABAN 5 MG TABLET. PO SCH ×2 (08:51→19:56)
[2020-09-18] MEDS: BUMETANIDE 1 MG TABLET PO SCH (08:53)
[2020-09-18 15:47] VITALS: BP 104/62
[2020-09-18] MEDS: ATORVASTATIN CALCIUM 20 MG TABLET PO SCH (19:55)
[2020-09-18] MEDS: DIVALPROEX ER 500 MG TAB.ER.24H PO SCH (19:56)
[2020-09-18] MEDS: MELATONIN 3 MG TABLET PO SCH (19:56)
[2020-09-18] MEDS: ACETAMINOPHEN 500 MG TABLET PO SCH (19:57)
[2020-09-18] MEDS: risperiDONE 0.5 MG TABLET. PO SCH (19:57)
[2020-09-18] MEDS: GABAPENTIN 300 MG CAPSULE. PO SCH (19:57)
--- NOTE | 2020-09-18 20:51 | PDOC ---
Exam Note: Michael Note: Please also refer to the separate dictated note~for this date of service dictated separately.~Patient seen individually. Discussed the patient with Nursing staff reviewed the chart.~Reviewed interim history and current functioning. Reviewed vital signs,~Labs/ Radiology~and current medications noted below. Continue current treatment with the changes noted in the dictated addendum note Assessment: Vital Signs/I&O: Vital Signs Date Time Temp Pulse Resp B/P (MAP) Pulse Ox O2 Delivery O2 Flow Rate FiO2 09/18/20 20:03 94 104/62 09/18/20 15:47 97.1 20 98 09/16/20 15:57 Room Air I & O 09/17/20 09/17/20 09/18/20 15:00 23:00 07:00 Intake Total 840 ml 460 ml Balance 840 ml 460 ml Current Medications: Meds: Current Medications Medications (Trade) Dose Ordered Sig/Gloria Route PRN Reason Start Time Stop Time Status Last Admin Dose Admin Acetaminophen (Tylenol) 500 mg HS PO 09/01/20 21:00 09/18/20 19:57 Apixaban (Eliquis) 5 mg BID PO 09/01/20 21:00 09/18/20 19:56 Bumetanide (Bumex) 1 mg DAILY PO 09/02/20 09:00 09/08/20 12:01 DC 09/08/20 08:01 Carbidopa/Levodopa (Sinemet 10/100) 0.5 tab [id number] PO 09/01/20 17:00 09/18/20 19:55 Diclofenac Sodium (Voltaren) 1 camilla PRN BID PRN TP MUSCLE PAIN 09/01/20 15:30 Divalproex Sodium (Depakote Sprinkles) 125 mg DAILY PO 09/02/20 09:00 09/02/20 09:00 DC 09/02/20 08:22 Divalproex Sodium (Depakote Er) 500 mg QHS PO 09/01/20 21:00 09/18/20 19:56 Docusate Sodium (Colace) 100 mg DAILY PO 09/02/20 09:00 09/18/20 08:51 Gabapentin (Neurontin) 300 mg HS PO 09/01/20 21:00 09/18/20 19:57 Ibuprofen (Motrin) 400 mg PRN Q8HRS PRN PO PAIN 09/01/20 15:30 UNV Levothyroxine Sodium (Synthroid) 25 mcg DAILYAC PO 09/02/20 07:30 09/01/20 19:50 DC Magnesium Hydroxide (Milk Of Magnesia) 2,400 mg PRN QHS PRN PO CONSTIPATION, 2ND CHOICE 09/01/20 15:30 09/04/20 05:12 Memantine (Namenda) 10 mg [id number] PO 09/01/20 16:30 09/18/20 17:02 Metoprolol Succinate (Toprol Xl) 12.5 mg BID PO 09/01/20 21:00 09/18/20 08:50 Olanzapine (ZyPREXA ZYDIS) 5 mg PRN Q12HR PRN PO ANXIETY / AGITATION 09/01/20 15:30 Polyethylene Glycol (miraLAX) 17 gm DAILY PO 09/02/20 09:00 09/18/20 08:50 Polyethylene Glycol (miraLAX) 17 gm PRN DAILY PRN PO CONSTIPATION, 1ST CHOICE 09/01/20 15:30 Potassium Chloride (Klor-Con) 20 meq BID PO 09/01/20 21:00 09/08/20 12:01 DC 09/08/20 08:01 Risperidone (RisperDAL) 0.5 mg TID PO 09/01/20 21:00 09/14/20 17:54 DC 09/14/20 06:05 Rivastigmine (Exelon 13.3mg) 1 patch DAILY TD 09/02/20 09:00 09/18/20 08:50 Senna/Docusate Sodium (Senna Plus) 1 tab DAILY PO 09/02/20 09:00 09/18/20 08:50 Sertraline HCl (Zoloft) 50 mg DAILY PO 09/02/20 09:00 09/02/20 16:48 DC 09/02/20 08:22 Tamsulosin HCl (Flomax) 0.4 mg DAILY PO 09/02/20 09:00 09/18/20 08:51 Ascorbic Acid (Vitamin C) 500 mg DAILY PO 09/02/20 09:00 09/18/20 08:51 Atorvastatin Calcium (Lipitor) 40 mg QHS PO 09/01/20 21:00 09/18/20 19:55 Non-Formulary Medication (Capsaicin/ Menthol (Salonpas Gel-Patch Hot)) 1 each HS TP 09/01/20 21:00 UNV Chlorhexidine Gluconate (Peridex) 15 ml BID SWSP 09/01/20 21:00 09/18/20 19:55 Multi-Ingred Cream/Lotion/Oil/ Oint (Hydrocerin) 1 camilla PRN BID PRN TP dry skin 09/01/20 16:45 Melatonin (Melatonin) 3 mg HS PO 09/01/20 21:00 09/18/20 19:56 Non-Formulary Medication (Menthol (Biofreeze)) 1 camilla PRN TID PRN TOP MUSCLE PAIN 09/01/20 15:30 UNV Cyclobenzaprine HCl (Flexeril) 10 mg PRN TID PRN PO low back pain 09/01/20 17:00 09/16/20 19:50 Oxybutynin Chloride (Ditropan) 5 mg BID PO 09/01/20 21:00 09/18/20 19:56 Timolol Maleate (Timoptic 0.5% [facility]) 1 drop BID OU 09/01/20 21:00 09/18/20 19:55 Multi-Ingredient Ointment (Analgesic [place]) 1 camilla PRN QID PRN TP MUSCLE PAIN 09/01/20 16:15 Cancel Al Hydroxide/Mg Hydroxide (Mylanta Plus Xs) 15 ml PRN AFTMEALHC PRN PO DYSPEPSIA 09/01/20 16:15 Levothyroxine Sodium (Synthroid) 25 mcg DAILY06 PO 09/02/20 06:00 09/18/20 05:34 Divalproex Sodium (Depakote Er) 125 mg DAILY PO 09/02/20 09:00 Cancel Sertraline HCl (Zoloft) 75 mg DAILY PO 09/03/20 09:00 09/05/20 11:00 DC 09/05/20 07:45 Sertraline HCl (Zoloft) 100 mg DAILY PO 09/06/20 09:00 09/12/20 18:22 DC 09/12/20 10:10 Divalproex Sodium (Depakote Sprinkles) 125 mg DAILY PO 09/03/20 09:00 09/04/20 17:23 DC 09/04/20 10:52 Divalproex Sodium (Depakote Sprinkles) 250 mg DAILY PO 09/05/20 09:00 09/18/20 08:51 Bumetanide (Bumex) 2 mg DAILY PO 09/09/20 09:00 09/18/20 08:53 Potassium Chloride (Klor-Con) 20 meq TID PO 09/08/20 14:00 09/18/20 19:56 Bumetanide (Bumex) 1 mg 1X ONCE PO 09/08/20 14:00 09/08/20 14:01 DC 09/08/20 14:00 Bupropion HCl (Wellbutrin Xl) 150 mg DAILY PO 09/13/20 09:00 09/18/20 08:51 Risperidone (RisperDAL) 0.5 mg QHS PO 09/15/20 21:00 09/18/20 19:57 I have reviewed the current psychotropics carefully including drug interactions. Risk benefit ratio favors no change other than as noted in my dictated progress note. Diagnosis: Problems: (1) Anxiety disorder (2) Impulse control disorder (3) Lewy body dementia with behavioral disturbance (4) Dementia, vascular, with delusions (5) Dementia in Alzheimer's disease with delusions (6) Major neurocognitive disorder (7) Major depressive disorder with psychotic features CAMERON ROSAS MD Sep 18, 2020 20:51
[2020-09-19] MEDS: LEVOTHYROXINE 25 MCG TABLET. PO SCH (05:30)
[2020-09-19 05:56] VITALS: BP 129/77
--- NOTE | 2020-09-19 08:27 | PDOC ---
Exam Note: Michael Note: This note is a late entry for 09/18/2020 covers elements not covered in my initial note. Subjective: The patient was seen on telehealth rounds in the evening of 09/18/2020 with Maris BRASHER, discussed and reviewed the chart. He slept 6-1/2 hours previous night. The patient has done better today but last night he was confused, believed he was going to work. I had an email from Lissy Delgado, social service staff and we reviewed his tentative discharge for . We have reduced the Risperdal from 1.5 mg a day down to 0.5 mg a day due to his Lewy body dementia and he does appear more psychotic since then but gait is better. We have postponed the discharge next Thursday to give us time to stabilize him further. Review of Systems: Ambulation impaired. No CV, , pulmonary, eye system symptoms on review. Mental Status Exam: The patient is oriented to himself and situation. Speech has some latency. Often response is monosyllabic. Abstraction is fair. Computation is impaired. Language function is intact. Attention span is short. Mood and affect somewhat withdrawn. He was walking into other patients room including ladies rooms oblivious of where he was going. This was evident during and after rounds with me. Laboratory Data: Reviewed. Impression: Major depressive disorder rule out psychotic features. Lewy body dementia early with delusion, depression. Anxiety disorder unspecified. Impulse control disorder unspecified. Plan: No change from initial note but we may need to increase the Risperdal once again on Seroquel depending on the psychotic symptoms. Assessment: Vital Signs/I&O: Vital Signs Date Time Temp Pulse Resp B/P (MAP) Pulse Ox O2 Delivery O2 Flow Rate FiO2 09/19/20 05:56 97.1 65 18 129/77 (94) 94 09/16/20 15:57 Room Air I & O 09/18/20 09/18/20 09/19/20 15:00 23:00 07:00 Intake Total 720 ml 300 ml Balance 720 ml 300 ml Current Medications: Meds: Current Medications Medications (Trade) Dose Ordered Sig/Gloria Route PRN Reason Start Time Stop Time Status Last Admin Dose Admin Acetaminophen (Tylenol) 500 mg HS PO 09/01/20 21:00 09/18/20 19:57 Apixaban (Eliquis) 5 mg BID PO 09/01/20 21:00 09/18/20 19:56 Bumetanide (Bumex) 1 mg DAILY PO 09/02/20 09:00 09/08/20 12:01 DC 09/08/20 08:01 Carbidopa/Levodopa (Sinemet 10/100) 0.5 tab [id number] PO 09/01/20 17:00 09/18/20 19:55 Diclofenac Sodium (Voltaren) 1 camilla PRN BID PRN TP MUSCLE PAIN 09/01/20 15:30 Divalproex Sodium (Depakote Sprinkles) 125 mg DAILY PO 09/02/20 09:00 09/02/20 09:00 DC 09/02/20 08:22 Divalproex Sodium (Depakote Er) 500 mg QHS PO 09/01/20 21:00 09/18/20 19:56 Docusate Sodium (Colace) 100 mg DAILY PO 09/02/20 09:00 09/18/20 08:51 Gabapentin (Neurontin) 300 mg HS PO 09/01/20 21:00 09/18/20 19:57 Ibuprofen (Motrin) 400 mg PRN Q8HRS PRN PO PAIN 09/01/20 15:30 UNV Levothyroxine Sodium (Synthroid) 25 mcg DAILYAC PO 09/02/20 07:30 09/01/20 19:50 DC Magnesium Hydroxide (Milk Of Magnesia) 2,400 mg PRN QHS PRN PO CONSTIPATION, 2ND CHOICE 09/01/20 15:30 09/04/20 05:12 Memantine (Namenda) 10 mg [id number] PO 09/01/20 16:30 09/18/20 17:02 Metoprolol Succinate (Toprol Xl) 12.5 mg BID PO 09/01/20 21:00 09/18/20 08:50 Olanzapine (ZyPREXA ZYDIS) 5 mg PRN Q12HR PRN PO ANXIETY / AGITATION 09/01/20 15:30 09/18/20 21:14 Polyethylene Glycol (miraLAX) 17 gm DAILY PO 09/02/20 09:00 09/18/20 08:50 Polyethylene Glycol (miraLAX) 17 gm PRN DAILY PRN PO CONSTIPATION, 1ST CHOICE 09/01/20 15:30 Potassium Chloride (Klor-Con) 20 meq BID PO 09/01/20 21:00 09/08/20 12:01 DC 09/08/20 08:01 Risperidone (RisperDAL) 0.5 mg TID PO 09/01/20 21:00 09/14/20 17:54 DC 09/14/20 06:05 Rivastigmine (Exelon 13.3mg) 1 patch DAILY TD 09/02/20 09:00 09/18/20 08:50 Senna/Docusate Sodium (Senna Plus) 1 tab DAILY PO 09/02/20 09:00 09/18/20 08:50 Sertraline HCl (Zoloft) 50 mg DAILY PO 09/02/20 09:00 09/02/20 16:48 DC 09/02/20 08:22 Tamsulosin HCl (Flomax) 0.4 mg DAILY PO 09/02/20 09:00 09/18/20 08:51 Ascorbic Acid (Vitamin C) 500 mg DAILY PO 09/02/20 09:00 09/18/20 08:51 Atorvastatin Calcium (Lipitor) 40 mg QHS PO 09/01/20 21:00 09/18/20 19:55 Non-Formulary Medication (Capsaicin/ Menthol (Salonpas Gel-Patch Hot)) 1 each HS TP 09/01/20 21:00 UNV Chlorhexidine Gluconate (Peridex) 15 ml BID SWSP 09/01/20 21:00 09/18/20 19:55 Multi-Ingred Cream/Lotion/Oil/ Oint (Hydrocerin) 1 camilla PRN BID PRN TP dry skin 09/01/20 16:45 Melatonin (Melatonin) 3 mg HS PO 09/01/20 21:00 09/18/20 19:56 Non-Formulary Medication (Menthol (Biofreeze)) 1 camilla PRN TID PRN TOP MUSCLE PAIN 09/01/20 15:30 UNV Cyclobenzaprine HCl (Flexeril) 10 mg PRN TID PRN PO low back pain 09/01/20 17:00 09/16/20 19:50 Oxybutynin Chloride (Ditropan) 5 mg BID PO 09/01/20 21:00 09/18/20 19:56 Timolol Maleate (Timoptic 0.5% [place]) 1 drop BID OU 09/01/20 21:00 09/18/20 19:55 Multi-Ingredient Ointment (Analgesic [place]) 1 camilla PRN QID PRN TP MUSCLE PAIN 09/01/20 16:15 Cancel Al Hydroxide/Mg Hydroxide (Mylanta Plus Xs) 15 ml PRN AFTMEALHC PRN PO DYSPEPSIA 09/01/20 16:15 Levothyroxine Sodium (Synthroid) 25 mcg DAILY06 PO 09/02/20 06:00 09/19/20 05:30 Divalproex Sodium (Depakote Er) 125 mg DAILY PO 09/02/20 09:00 Cancel Sertraline HCl (Zoloft) 75 mg DAILY PO 09/03/20 09:00 09/05/20 11:00 DC 09/05/20 07:45 Sertraline HCl (Zoloft) 100 mg DAILY PO 09/06/20 09:00 09/12/20 18:22 DC 09/12/20 10:10 Divalproex Sodium (Depakote Sprinkles) 125 mg DAILY PO 09/03/20 09:00 09/04/20 17:23 DC 09/04/20 10:52 Divalproex Sodium (Depakote Sprinkles) 250 mg DAILY PO 09/05/20 09:00 09/18/20 08:51 Bumetanide (Bumex) 2 mg DAILY PO 09/09/20 09:00 09/18/20 08:53 Potassium Chloride (Klor-Con) 20 meq TID PO 09/08/20 14:00 09/18/20 19:56 Bumetanide (Bumex) 1 mg 1X ONCE PO 09/08/20 14:00 09/08/20 14:01 DC 09/08/20 14:00 Bupropion HCl (Wellbutrin Xl) 150 mg DAILY PO 09/13/20 09:00 09/18/20 08:51 Risperidone (RisperDAL) 0.5 mg QHS PO 09/15/20 21:00 09/18/20 19:57 I have reviewed the current psychotropics carefully including drug interactions. Risk benefit ratio favors no change other than as noted in my dictated progress note. Diagnosis: Problems: (1) Anxiety disorder (2) Impulse control disorder (3) Lewy body dementia with behavioral disturbance (4) Dementia, vascular, with delusions (5) Dementia in Alzheimer's disease with delusions (6) Major neurocognitive disorder (7) Major depressive disorder with psychotic features CAMERON ROSAS MD Sep 19, 2020 08:26
[2020-09-19] MEDS: POLYETHYLENE GLYCOL 3350 17 GM PACKET. PO SCH (08:56)
[2020-09-19] MEDS: TIMOLOL 0.5% OPHTH SOLUTION 5ML BOTTLE. OU SCH ×2 (08:56→20:26)
[2020-09-19] MEDS: DOCUSATE SODIUM 100 MG CAPSULE PO SCH (08:57)
[2020-09-19] MEDS: CHLORHEXIDINE 0.12% 15 ML MOUTHWASH. SWSP SCH ×2 (08:57→20:26)
[2020-09-19] MEDS: RIVASTIGMINE 13.3MG PATCH. TD SCH (08:57)
[2020-09-19] MEDS: buPROPion XL 150 MG TAB.ER.24H PO SCH (09:00)
[2020-09-19] MEDS: APIXABAN 5 MG TABLET. PO SCH ×2 (09:00→20:25)
[2020-09-19] MEDS: SENNOSIDES/DOCUSATE 8.6/50MG TABLET. PO SCH (09:00)
[2020-09-19] MEDS: DIVALPROEX 125 MG CAP.SPRINK PO SCH (09:00)
[2020-09-19] MEDS: OXYBUTYNIN CHLORIDE 5 MG TABLET PO SCH ×2 (09:00→20:25)
[2020-09-19] MEDS: TAMSULOSIN 0.4 MG CAP.ER.24H. PO SCH (09:00)
[2020-09-19] MEDS: ASCORBIC ACID 500 MG TABLET PO SCH (09:00)
[2020-09-19] MEDS: BUMETANIDE 1 MG TABLET PO SCH (09:00)
[2020-09-19] MEDS: CARBIDOPA/LEVODOPA 10/100MG TABLET PO SCH ×4 (09:00→20:25)
[2020-09-19] MEDS: MEMANTINE 10 MG TABLET. PO SCH ×2 (09:00→17:37)
[2020-09-19] MEDS: METOPROLOL SUCC 24HR ER 25 MG TAB.ER.24H. PO SCH ×2 (09:00→20:26)
[2020-09-19] MEDS: POTASSIUM CHLORIDE 20 MEQ TABLET.ER. PO SCH ×3 (09:01→20:25)
[2020-09-19 16:18] VITALS: BP 110/66
[2020-09-19] MEDS: DIVALPROEX ER 500 MG TAB.ER.24H PO SCH (20:24)
[2020-09-19] MEDS: ATORVASTATIN CALCIUM 20 MG TABLET PO SCH (20:24)
[2020-09-19] MEDS: ACETAMINOPHEN 500 MG TABLET PO SCH (20:24)
[2020-09-19] MEDS: risperiDONE 0.5 MG TABLET. PO SCH (20:24)
[2020-09-19] MEDS: GABAPENTIN 300 MG CAPSULE. PO SCH (20:25)
[2020-09-19] MEDS: MELATONIN 3 MG TABLET PO SCH (20:25)
--- NOTE | 2020-09-19 20:57 | PDOC ---
Exam Note: Michael Note: Please also refer to the separate dictated note~for this date of service dictated separately.~Patient seen individually. Discussed the patient with Nursing staff reviewed the chart.~Reviewed interim history and current functioning. Reviewed vital signs,~Labs/ Radiology~and current medications noted below. Continue current treatment with the changes noted in the dictated addendum note Assessment: Vital Signs/I&O: Vital Signs Date Time Temp Pulse Resp B/P (MAP) Pulse Ox O2 Delivery O2 Flow Rate FiO2 09/19/20 20:26 79 110/66 09/19/20 16:18 97.4 18 94 09/16/20 15:57 Room Air I & O 09/18/20 09/18/20 09/19/20 14:59 22:59 06:59 Intake Total 720 ml 300 ml Balance 720 ml 300 ml Current Medications: Meds: Current Medications Medications (Trade) Dose Ordered Sig/Gloria Route PRN Reason Start Time Stop Time Status Last Admin Dose Admin Acetaminophen (Tylenol) 500 mg HS PO 09/01/20 21:00 09/19/20 20:24 Apixaban (Eliquis) 5 mg BID PO 09/01/20 21:00 09/19/20 20:25 Bumetanide (Bumex) 1 mg DAILY PO 09/02/20 09:00 09/08/20 12:01 DC 09/08/20 08:01 Carbidopa/Levodopa (Sinemet 10/) 0.5 tab [id number] PO 09/01/20 17:00 09/19/20 20:25 Diclofenac Sodium (Voltaren) 1 camilla PRN BID PRN TP MUSCLE PAIN 09/01/20 15:30 Divalproex Sodium (Depakote Sprinkles) 125 mg DAILY PO 09/02/20 09:00 09/02/20 09:00 DC 09/02/20 08:22 Divalproex Sodium (Depakote Er) 500 mg QHS PO 09/01/20 21:00 09/19/20 20:24 Docusate Sodium (Colace) 100 mg DAILY PO 09/02/20 09:00 09/19/20 08:57 Gabapentin (Neurontin) 300 mg HS PO 09/01/20 21:00 09/19/20 20:25 Ibuprofen (Motrin) 400 mg PRN Q8HRS PRN PO PAIN 09/01/20 15:30 UNV Levothyroxine Sodium (Synthroid) 25 mcg DAILYAC PO 09/02/20 07:30 09/01/20 19:50 DC Magnesium Hydroxide (Milk Of Magnesia) 2,400 mg PRN QHS PRN PO CONSTIPATION, 2ND CHOICE 09/01/20 15:30 09/04/20 05:12 Memantine (Namenda) 10 mg [id number] PO 09/01/20 16:30 09/19/20 17:37 Metoprolol Succinate (Toprol Xl) 12.5 mg BID PO 09/01/20 21:00 09/19/20 20:26 Olanzapine (ZyPREXA ZYDIS) 5 mg PRN Q12HR PRN PO ANXIETY / AGITATION 09/01/20 15:30 09/18/20 21:14 Polyethylene Glycol (miraLAX) 17 gm DAILY PO 09/02/20 09:00 09/19/20 08:56 Polyethylene Glycol (miraLAX) 17 gm PRN DAILY PRN PO CONSTIPATION, 1ST CHOICE 09/01/20 15:30 Potassium Chloride (Klor-Con) 20 meq BID PO 09/01/20 21:00 09/08/20 12:01 DC 09/08/20 08:01 Risperidone (RisperDAL) 0.5 mg TID PO 09/01/20 21:00 09/14/20 17:54 DC 09/14/20 06:05 Rivastigmine (Exelon 13.3mg) 1 patch DAILY TD 09/02/20 09:00 09/19/20 08:57 Senna/Docusate Sodium (Senna Plus) 1 tab DAILY PO 09/02/20 09:00 09/19/20 09:00 Sertraline HCl (Zoloft) 50 mg DAILY PO 09/02/20 09:00 09/02/20 16:48 DC 09/02/20 08:22 Tamsulosin HCl (Flomax) 0.4 mg DAILY PO 09/02/20 09:00 09/19/20 09:00 Ascorbic Acid (Vitamin C) 500 mg DAILY PO 09/02/20 09:00 09/19/20 09:00 Atorvastatin Calcium (Lipitor) 40 mg QHS PO 09/01/20 21:00 09/19/20 20:24 Non-Formulary Medication (Capsaicin/ Menthol (Salonpas Gel-Patch Hot)) 1 each HS TP 09/01/20 21:00 UNV Chlorhexidine Gluconate (Peridex) 15 ml BID SWSP 09/01/20 21:00 09/19/20 20:26 Multi-Ingred Cream/Lotion/Oil/ Oint (Hydrocerin) 1 camilla PRN BID PRN TP dry skin 09/01/20 16:45 Melatonin (Melatonin) 3 mg HS PO 09/01/20 21:00 09/19/20 20:25 Non-Formulary Medication (Menthol (Biofreeze)) 1 camilla PRN TID PRN TOP MUSCLE PAIN 09/01/20 15:30 UNV Cyclobenzaprine HCl (Flexeril) 10 mg PRN TID PRN PO low back pain 09/01/20 17:00 09/16/20 19:50 Oxybutynin Chloride (Ditropan) 5 mg BID PO 09/01/20 21:00 09/19/20 20:25 Timolol Maleate (Timoptic 0.5% Oph) 1 drop BID OU 09/01/20 21:00 09/19/20 20:26 Multi-Ingredient Ointment (Analgesic [place]) 1 camilla PRN QID PRN TP MUSCLE PAIN 09/01/20 16:15 Cancel Al Hydroxide/Mg Hydroxide (Mylanta Plus Xs) 15 ml PRN AFTMEALHC PRN PO DYSPEPSIA 09/01/20 16:15 Levothyroxine Sodium (Synthroid) 25 mcg DAILY06 PO 09/02/20 06:00 09/19/20 05:30 Divalproex Sodium (Depakote Er) 125 mg DAILY PO 09/02/20 09:00 Cancel Sertraline HCl (Zoloft) 75 mg DAILY PO 09/03/20 09:00 09/05/20 11:00 DC 09/05/20 07:45 Sertraline HCl (Zoloft) 100 mg DAILY PO 09/06/20 09:00 09/12/20 18:22 DC 09/12/20 10:10 Divalproex Sodium (Depakote Sprinkles) 125 mg DAILY PO 09/03/20 09:00 09/04/20 17:23 DC 09/04/20 10:52 Divalproex Sodium (Depakote Sprinkles) 250 mg DAILY PO 09/05/20 09:00 09/19/20 09:00 Bumetanide (Bumex) 2 mg DAILY PO 09/09/20 09:00 09/19/20 09:00 Potassium Chloride (Klor-Con) 20 meq TID PO 09/08/20 14:00 09/19/20 20:25 Bumetanide (Bumex) 1 mg 1X ONCE PO 09/08/20 14:00 09/08/20 14:01 DC 09/08/20 14:00 Bupropion HCl (Wellbutrin Xl) 150 mg DAILY PO 09/13/20 09:00 09/19/20 09:00 Risperidone (RisperDAL) 0.5 mg QHS PO 09/15/20 21:00 09/19/20 20:24 I have reviewed the current psychotropics carefully including drug interactions. Risk benefit ratio favors no change other than as noted in my dictated progress note. Diagnosis: Problems: (1) Anxiety disorder (2) Impulse control disorder (3) Lewy body dementia with behavioral disturbance (4) Dementia, vascular, with delusions (5) Dementia in Alzheimer's disease with delusions (6) Major neurocognitive disorder (7) Major depressive disorder with psychotic features CAMERON ROSAS MD Sep 19, 2020 20:57
[2020-09-20 05:30] VITALS: BP 159/84
[2020-09-20] MEDS: LEVOTHYROXINE 25 MCG TABLET. PO SCH (05:48)
--- NOTE | 2020-09-20 08:00 | PDOC ---
Exam Note: Michael Note: This note is a late entry for 09/19/2020 covers elements not covered in my initial note. Subjective: The patient was seen face to face in the evening of 09/19/2020 with Maris BRASHER, discussed and reviewed the chart. He slept 6-1/2 hours previous night. The patient was hallucinating previous night but not during the day today. His gait is better since Risperdal was reduced. Review of Systems: No CV, , pulmonary, eye system symptoms on review. Mental Status Exam: The patient is oriented to himself and situation. Eye contact is poor. Verbal response is monosyllabic, has some latency. Abstraction is fair. Computation is impaired. Language function is intact. Mood and affect somewhat withdrawn. Laboratory Data: Reviewed. Impression: Major depressive disorder rule out psychotic features. Lewy body dementia early with delusion, depression. Anxiety disorder unspecified. Impulse control disorder unspecified. Plan: No change from initial note. Assessment: Vital Signs/I&O: Vital Signs Date Time Temp Pulse Resp B/P (MAP) Pulse Ox O2 Delivery O2 Flow Rate FiO2 09/20/20 05:30 98.9 61 18 159/84 (109) 97 09/16/20 15:57 Room Air I & O 09/19/20 09/19/20 09/20/20 15:00 23:00 07:00 Intake Total 600 ml 360 ml Balance 600 ml 360 ml Current Medications: Meds: Current Medications Medications (Trade) Dose Ordered Sig/Gloria Route PRN Reason Start Time Stop Time Status Last Admin Dose Admin Acetaminophen (Tylenol) 500 mg HS PO 09/01/20 21:00 09/19/20 20:24 Apixaban (Eliquis) 5 mg BID PO 09/01/20 21:00 09/19/20 20:25 Bumetanide (Bumex) 1 mg DAILY PO 09/02/20 09:00 09/08/20 12:01 DC 09/08/20 08:01 Carbidopa/Levodopa (Sinemet 10/) 0.5 tab [id number] PO 09/01/20 17:00 09/19/20 20:25 Diclofenac Sodium (Voltaren) 1 camilla PRN BID PRN TP MUSCLE PAIN 09/01/20 15:30 Divalproex Sodium (Depakote Sprinkles) 125 mg DAILY PO 09/02/20 09:00 09/02/20 09:00 DC 09/02/20 08:22 Divalproex Sodium (Depakote Er) 500 mg QHS PO 09/01/20 21:00 09/19/20 20:24 Docusate Sodium (Colace) 100 mg DAILY PO 09/02/20 09:00 09/19/20 08:57 Gabapentin (Neurontin) 300 mg HS PO 09/01/20 21:00 09/19/20 20:25 Ibuprofen (Motrin) 400 mg PRN Q8HRS PRN PO PAIN 09/01/20 15:30 UNV Levothyroxine Sodium (Synthroid) 25 mcg DAILYAC PO 09/02/20 07:30 09/01/20 19:50 DC Magnesium Hydroxide (Milk Of Magnesia) 2,400 mg PRN QHS PRN PO CONSTIPATION, 2ND CHOICE 09/01/20 15:30 09/04/20 05:12 Memantine (Namenda) 10 mg [id number] PO 09/01/20 16:30 09/19/20 17:37 Metoprolol Succinate (Toprol Xl) 12.5 mg BID PO 09/01/20 21:00 09/19/20 20:26 Olanzapine (ZyPREXA ZYDIS) 5 mg PRN Q12HR PRN PO ANXIETY / AGITATION 09/01/20 15:30 09/18/20 21:14 Polyethylene Glycol (miraLAX) 17 gm DAILY PO 09/02/20 09:00 09/19/20 08:56 Polyethylene Glycol (miraLAX) 17 gm PRN DAILY PRN PO CONSTIPATION, 1ST CHOICE 09/01/20 15:30 Potassium Chloride (Klor-Con) 20 meq BID PO 09/01/20 21:00 09/08/20 12:01 DC 09/08/20 08:01 Risperidone (RisperDAL) 0.5 mg TID PO 09/01/20 21:00 09/14/20 17:54 DC 09/14/20 06:05 Rivastigmine (Exelon 13.3mg) 1 patch DAILY TD 09/02/20 09:00 09/19/20 08:57 Senna/Docusate Sodium (Senna Plus) 1 tab DAILY PO 09/02/20 09:00 09/19/20 09:00 Sertraline HCl (Zoloft) 50 mg DAILY PO 09/02/20 09:00 09/02/20 16:48 DC 09/02/20 08:22 Tamsulosin HCl (Flomax) 0.4 mg DAILY PO 09/02/20 09:00 09/19/20 09:00 Ascorbic Acid (Vitamin C) 500 mg DAILY PO 09/02/20 09:00 09/19/20 09:00 Atorvastatin Calcium (Lipitor) 40 mg QHS PO 09/01/20 21:00 09/19/20 20:24 Non-Formulary Medication (Capsaicin/ Menthol (Salonpas Gel-Patch Hot)) 1 each HS TP 09/01/20 21:00 UNV Chlorhexidine Gluconate (Peridex) 15 ml BID SWSP 09/01/20 21:00 09/19/20 20:26 Multi-Ingred Cream/Lotion/Oil/ Oint (Hydrocerin) 1 camilla PRN BID PRN TP dry skin 09/01/20 16:45 Melatonin (Melatonin) 3 mg HS PO 09/01/20 21:00 09/19/20 20:25 Non-Formulary Medication (Menthol (Biofreeze)) 1 camilla PRN TID PRN TOP MUSCLE PAIN 09/01/20 15:30 UNV Cyclobenzaprine HCl (Flexeril) 10 mg PRN TID PRN PO low back pain 09/01/20 17:00 09/16/20 19:50 Oxybutynin Chloride (Ditropan) 5 mg BID PO 09/01/20 21:00 09/19/20 20:25 Timolol Maleate (Timoptic 0.5% [place]) 1 drop BID OU 09/01/20 21:00 09/19/20 20:26 Multi-Ingredient Ointment (Analgesic [place]) 1 camilla PRN QID PRN TP MUSCLE PAIN 09/01/20 16:15 Cancel Al Hydroxide/Mg Hydroxide (Mylanta Plus Xs) 15 ml PRN AFTMEALHC PRN PO DYSPEPSIA 09/01/20 16:15 Levothyroxine Sodium (Synthroid) 25 mcg DAILY06 PO 09/02/20 06:00 09/20/20 05:48 Divalproex Sodium (Depakote Er) 125 mg DAILY PO 09/02/20 09:00 Cancel Sertraline HCl (Zoloft) 75 mg DAILY PO 09/03/20 09:00 09/05/20 11:00 DC 09/05/20 07:45 Sertraline HCl (Zoloft) 100 mg DAILY PO 09/06/20 09:00 09/12/20 18:22 DC 09/12/20 10:10 Divalproex Sodium (Depakote Sprinkles) 125 mg DAILY PO 09/03/20 09:00 09/04/20 17:23 DC 09/04/20 10:52 Divalproex Sodium (Depakote Sprinkles) 250 mg DAILY PO 09/05/20 09:00 09/19/20 09:00 Bumetanide (Bumex) 2 mg DAILY PO 09/09/20 09:00 09/19/20 09:00 Potassium Chloride (Klor-Con) 20 meq TID PO 09/08/20 14:00 09/19/20 20:25 Bumetanide (Bumex) 1 mg 1X ONCE PO 09/08/20 14:00 09/08/20 14:01 DC 09/08/20 14:00 Bupropion HCl (Wellbutrin Xl) 150 mg DAILY PO 09/13/20 09:00 09/19/20 09:00 Risperidone (RisperDAL) 0.5 mg QHS PO 09/15/20 21:00 09/19/20 20:24 I have reviewed the current psychotropics carefully including drug interactions. Risk benefit ratio favors no change other than as noted in my dictated progress note. Diagnosis: Problems: (1) Anxiety disorder (2) Impulse control disorder (3) Lewy body dementia with behavioral disturbance (4) Dementia, vascular, with delusions (5) Dementia in Alzheimer's disease with delusions (6) Major neurocognitive disorder (7) Major depressive disorder with psychotic features CAMERON ROSAS MD Sep 20, 2020 08:00
[2020-09-20] MEDS: BUMETANIDE 1 MG TABLET PO SCH (09:00)
[2020-09-20] MEDS: SENNOSIDES/DOCUSATE 8.6/50MG TABLET. PO SCH (09:02)
[2020-09-20] MEDS: METOPROLOL SUCC 24HR ER 25 MG TAB.ER.24H. PO SCH ×2 (09:02→20:08)
[2020-09-20] MEDS: DIVALPROEX 125 MG CAP.SPRINK PO SCH (09:02)
[2020-09-20] MEDS: TAMSULOSIN 0.4 MG CAP.ER.24H. PO SCH (09:02)
[2020-09-20] MEDS: buPROPion XL 150 MG TAB.ER.24H PO SCH (09:02)
[2020-09-20] MEDS: ASCORBIC ACID 500 MG TABLET PO SCH (09:02)
[2020-09-20] MEDS: MEMANTINE 10 MG TABLET. PO SCH ×2 (09:02→16:00)
[2020-09-20] MEDS: DOCUSATE SODIUM 100 MG CAPSULE PO SCH (09:02)
[2020-09-20] MEDS: CARBIDOPA/LEVODOPA 10/100MG TABLET PO SCH ×4 (09:03→19:54)
[2020-09-20] MEDS: RIVASTIGMINE 13.3MG PATCH. TD SCH (09:03)
[2020-09-20] MEDS: POTASSIUM CHLORIDE 20 MEQ TABLET.ER. PO SCH ×3 (09:03→19:54)
[2020-09-20] MEDS: OXYBUTYNIN CHLORIDE 5 MG TABLET PO SCH ×2 (09:03→19:54)
[2020-09-20] MEDS: POLYETHYLENE GLYCOL 3350 17 GM PACKET. PO SCH (09:03)
[2020-09-20] MEDS: TIMOLOL 0.5% OPHTH SOLUTION 5ML BOTTLE. OU SCH ×2 (09:03→19:52)
[2020-09-20] MEDS: CHLORHEXIDINE 0.12% 15 ML MOUTHWASH. SWSP SCH ×2 (09:03→19:52)
[2020-09-20] MEDS: APIXABAN 5 MG TABLET. PO SCH ×2 (09:03→19:53)
[2020-09-20 15:59] VITALS: BP 100/66
[2020-09-20] MEDS: ATORVASTATIN CALCIUM 20 MG TABLET PO SCH (19:52)
[2020-09-20] MEDS: GABAPENTIN 300 MG CAPSULE. PO SCH (19:53)
[2020-09-20] MEDS: DIVALPROEX ER 500 MG TAB.ER.24H PO SCH (19:53)
[2020-09-20] MEDS: ACETAMINOPHEN 500 MG TABLET PO SCH (19:53)
[2020-09-20] MEDS: MELATONIN 3 MG TABLET PO SCH (19:54)
[2020-09-20] MEDS: risperiDONE 0.5 MG TABLET. PO SCH (19:54)
--- NOTE | 2020-09-20 20:59 | PDOC ---
Exam Note: Michael Note: Please also refer to the separate dictated note~for this date of service dictated separately.~Patient seen individually. Discussed the patient with Nursing staff reviewed the chart.~Reviewed interim history and current functioning. Reviewed vital signs,~Labs/ Radiology~and current medications noted below. Continue current treatment with the changes noted in the dictated addendum note Assessment: Vital Signs/I&O: Vital Signs Date Time Temp Pulse Resp B/P (MAP) Pulse Ox O2 Delivery O2 Flow Rate FiO2 09/20/20 20:08 75 133/93 09/20/20 15:59 97.5 16 94 Room Air I & O 09/19/20 09/19/20 09/20/20 15:00 23:00 07:00 Intake Total 600 ml 360 ml Balance 600 ml 360 ml Current Medications: Meds: Current Medications Medications (Trade) Dose Ordered Sig/Gloria Route PRN Reason Start Time Stop Time Status Last Admin Dose Admin Acetaminophen (Tylenol) 500 mg HS PO 09/01/20 21:00 09/20/20 19:53 Apixaban (Eliquis) 5 mg BID PO 09/01/20 21:00 09/20/20 19:53 Bumetanide (Bumex) 1 mg DAILY PO 09/02/20 09:00 09/08/20 12:01 DC 09/08/20 08:01 Carbidopa/Levodopa (Sinemet 10/100) 0.5 tab [id number] PO 09/01/20 17:00 09/20/20 19:54 Diclofenac Sodium (Voltaren) 1 camilla PRN BID PRN TP MUSCLE PAIN 09/01/20 15:30 Divalproex Sodium (Depakote Sprinkles) 125 mg DAILY PO 09/02/20 09:00 09/02/20 09:00 DC 09/02/20 08:22 Divalproex Sodium (Depakote Er) 500 mg QHS PO 09/01/20 21:00 09/20/20 19:53 Docusate Sodium (Colace) 100 mg DAILY PO 09/02/20 09:00 09/20/20 09:02 Gabapentin (Neurontin) 300 mg HS PO 09/01/20 21:00 09/20/20 19:53 Ibuprofen (Motrin) 400 mg PRN Q8HRS PRN PO PAIN 09/01/20 15:30 UNV Levothyroxine Sodium (Synthroid) 25 mcg DAILYAC PO 09/02/20 07:30 09/01/20 19:50 DC Magnesium Hydroxide (Milk Of Magnesia) 2,400 mg PRN QHS PRN PO CONSTIPATION, 2ND CHOICE 09/01/20 15:30 09/04/20 05:12 Memantine (Namenda) 10 mg [id number] PO 09/01/20 16:30 09/20/20 16:00 Metoprolol Succinate (Toprol Xl) 12.5 mg BID PO 09/01/20 21:00 09/20/20 20:08 Olanzapine (ZyPREXA ZYDIS) 5 mg PRN Q12HR PRN PO ANXIETY / AGITATION 09/01/20 15:30 09/20/20 20:10 Polyethylene Glycol (miraLAX) 17 gm DAILY PO 09/02/20 09:00 09/20/20 09:03 Polyethylene Glycol (miraLAX) 17 gm PRN DAILY PRN PO CONSTIPATION, 1ST CHOICE 09/01/20 15:30 Potassium Chloride (Klor-Con) 20 meq BID PO 09/01/20 21:00 09/08/20 12:01 DC 09/08/20 08:01 Risperidone (RisperDAL) 0.5 mg TID PO 09/01/20 21:00 09/14/20 17:54 DC 09/14/20 06:05 Rivastigmine (Exelon 13.3mg) 1 patch DAILY TD 09/02/20 09:00 09/20/20 09:03 Senna/Docusate Sodium (Senna Plus) 1 tab DAILY PO 09/02/20 09:00 09/20/20 09:02 Sertraline HCl (Zoloft) 50 mg DAILY PO 09/02/20 09:00 09/02/20 16:48 DC 09/02/20 08:22 Tamsulosin HCl (Flomax) 0.4 mg DAILY PO 09/02/20 09:00 09/20/20 09:02 Ascorbic Acid (Vitamin C) 500 mg DAILY PO 09/02/20 09:00 09/20/20 09:02 Atorvastatin Calcium (Lipitor) 40 mg QHS PO 09/01/20 21:00 09/20/20 19:52 Non-Formulary Medication (Capsaicin/ Menthol (Salonpas Gel-Patch Hot)) 1 each HS TP 09/01/20 21:00 UNV Chlorhexidine Gluconate (Peridex) 15 ml BID SWSP 09/01/20 21:00 09/20/20 19:52 Multi-Ingred Cream/Lotion/Oil/ Oint (Hydrocerin) 1 camilla PRN BID PRN TP dry skin 09/01/20 16:45 Melatonin (Melatonin) 3 mg HS PO 09/01/20 21:00 09/20/20 19:54 Non-Formulary Medication (Menthol (Biofreeze)) 1 camilla PRN TID PRN TOP MUSCLE PAIN 09/01/20 15:30 UNV Cyclobenzaprine HCl (Flexeril) 10 mg PRN TID PRN PO low back pain 09/01/20 17:00 09/16/20 19:50 Oxybutynin Chloride (Ditropan) 5 mg BID PO 09/01/20 21:00 09/20/20 19:54 Timolol Maleate (Timoptic 0.5% [facility]) 1 drop BID OU 09/01/20 21:00 09/20/20 19:52 Multi-Ingredient Ointment (Analgesic [place]) 1 camilla PRN QID PRN TP MUSCLE PAIN 09/01/20 16:15 Cancel Al Hydroxide/Mg Hydroxide (Mylanta Plus Xs) 15 ml PRN AFTMEALHC PRN PO DYSPEPSIA 09/01/20 16:15 Levothyroxine Sodium (Synthroid) 25 mcg DAILY06 PO 09/02/20 06:00 09/20/20 05:48 Divalproex Sodium (Depakote Er) 125 mg DAILY PO 09/02/20 09:00 Cancel Sertraline HCl (Zoloft) 75 mg DAILY PO 09/03/20 09:00 09/05/20 11:00 DC 09/05/20 07:45 Sertraline HCl (Zoloft) 100 mg DAILY PO 09/06/20 09:00 09/12/20 18:22 DC 09/12/20 10:10 Divalproex Sodium (Depakote Sprinkles) 125 mg DAILY PO 09/03/20 09:00 09/04/20 17:23 DC 09/04/20 10:52 Divalproex Sodium (Depakote Sprinkles) 250 mg DAILY PO 09/05/20 09:00 09/20/20 09:02 Bumetanide (Bumex) 2 mg DAILY PO 09/09/20 09:00 09/20/20 09:00 Potassium Chloride (Klor-Con) 20 meq TID PO 09/08/20 14:00 09/20/20 19:54 Bumetanide (Bumex) 1 mg 1X ONCE PO 09/08/20 14:00 09/08/20 14:01 DC 09/08/20 14:00 Bupropion HCl (Wellbutrin Xl) 150 mg DAILY PO 09/13/20 09:00 09/20/20 09:02 Risperidone (RisperDAL) 0.5 mg QHS PO 09/15/20 21:00 09/20/20 19:54 I have reviewed the current psychotropics carefully including drug interactions. Risk benefit ratio favors no change other than as noted in my dictated progress note. Diagnosis: Problems: (1) Anxiety disorder (2) Impulse control disorder (3) Lewy body dementia with behavioral disturbance (4) Dementia, vascular, with delusions (5) Dementia in Alzheimer's disease with delusions (6) Major neurocognitive disorder (7) Major depressive disorder with psychotic features CAMERON ROSAS MD Sep 20, 2020 20:59
[2020-09-21 05:45] VITALS: BP 133/79
[2020-09-21] MEDS: LEVOTHYROXINE 25 MCG TABLET. PO SCH (05:58)
[2020-09-21] MEDS: DOCUSATE SODIUM 100 MG CAPSULE PO SCH (09:00)
[2020-09-21] MEDS: POLYETHYLENE GLYCOL 3350 17 GM PACKET. PO SCH (09:00)
[2020-09-21] MEDS: BUMETANIDE 1 MG TABLET PO SCH (09:00)
[2020-09-21] MEDS: TIMOLOL 0.5% OPHTH SOLUTION 5ML BOTTLE. OU SCH ×2 (09:00→19:32)
[2020-09-21] MEDS: SENNOSIDES/DOCUSATE 8.6/50MG TABLET. PO SCH (09:21)
[2020-09-21] MEDS: OXYBUTYNIN CHLORIDE 5 MG TABLET PO SCH ×2 (09:22→19:33)
[2020-09-21] MEDS: buPROPion XL 150 MG TAB.ER.24H PO SCH (09:22)
[2020-09-21] MEDS: DIVALPROEX 125 MG CAP.SPRINK PO SCH (09:22)
[2020-09-21] MEDS: ASCORBIC ACID 500 MG TABLET PO SCH (09:22)
[2020-09-21] MEDS: MEMANTINE 10 MG TABLET. PO SCH ×2 (09:22→16:00)
[2020-09-21] MEDS: APIXABAN 5 MG TABLET. PO SCH ×2 (09:22→19:33)
[2020-09-21] MEDS: POTASSIUM CHLORIDE 20 MEQ TABLET.ER. PO SCH ×3 (09:22→19:33)
[2020-09-21] MEDS: METOPROLOL SUCC 24HR ER 25 MG TAB.ER.24H. PO SCH ×2 (09:22→19:33)
[2020-09-21] MEDS: TAMSULOSIN 0.4 MG CAP.ER.24H. PO SCH (09:22)
[2020-09-21] MEDS: CARBIDOPA/LEVODOPA 10/100MG TABLET PO SCH ×4 (09:23→19:34)
[2020-09-21] MEDS: CHLORHEXIDINE 0.12% 15 ML MOUTHWASH. SWSP SCH ×2 (09:23→19:32)
[2020-09-21] MEDS: RIVASTIGMINE 13.3MG PATCH. TD SCH (09:23)
[2020-09-21 16:16] VITALS: BP 144/81
[2020-09-21] MEDS: MELATONIN 3 MG TABLET PO SCH (19:32)
[2020-09-21] MEDS: DIVALPROEX ER 500 MG TAB.ER.24H PO SCH (19:33)
[2020-09-21] MEDS: GABAPENTIN 300 MG CAPSULE. PO SCH (19:33)
[2020-09-21] MEDS: ACETAMINOPHEN 500 MG TABLET PO SCH (19:33)
[2020-09-21] MEDS: risperiDONE 0.5 MG TABLET. PO SCH (19:33)
[2020-09-21] MEDS: ATORVASTATIN CALCIUM 20 MG TABLET PO SCH (19:33)
[2020-09-22 01:02] LABS: BACTERIA,URINE 0 /HPF (0-FEW); BILIRUBIN,URINE NEG (NEG); CLARITY,URINE CLEAR; COLOR,URINE YELLOW; GLUCOSE,URINE NEG (NEG); NITRITE,URINE NEG (NEG); RBC,URINE 0 /HPF (0-2); SQUAMOUS EPITHELIAL CELL,UR OCC /LPF; WBC,URINE OCC /HPF (0-4)
[2020-09-22 05:25] VITALS: BP 127/83
[2020-09-22] MEDS: LEVOTHYROXINE 25 MCG TABLET. PO SCH (05:32)
[2020-09-22] MEDS: TIMOLOL 0.5% OPHTH SOLUTION 5ML BOTTLE. OU SCH ×2 (08:14→19:38)
[2020-09-22] MEDS: APIXABAN 5 MG TABLET. PO SCH ×2 (08:14→19:39)
[2020-09-22] MEDS: POLYETHYLENE GLYCOL 3350 17 GM PACKET. PO SCH (08:14)
[2020-09-22] MEDS: CHLORHEXIDINE 0.12% 15 ML MOUTHWASH. SWSP SCH ×2 (08:14→19:38)
[2020-09-22] MEDS: SENNOSIDES/DOCUSATE 8.6/50MG TABLET. PO SCH (08:14)
[2020-09-22] MEDS: RIVASTIGMINE 13.3MG PATCH. TD SCH (08:14)
[2020-09-22] MEDS: CARBIDOPA/LEVODOPA 10/100MG TABLET PO SCH ×4 (08:15→19:38)
[2020-09-22] MEDS: METOPROLOL SUCC 24HR ER 25 MG TAB.ER.24H. PO SCH ×2 (08:15→19:40)
[2020-09-22] MEDS: BUMETANIDE 1 MG TABLET PO SCH (08:15)
[2020-09-22] MEDS: MEMANTINE 10 MG TABLET. PO SCH ×2 (08:15→16:57)
[2020-09-22] MEDS: buPROPion XL 150 MG TAB.ER.24H PO SCH (08:15)
[2020-09-22] MEDS: OXYBUTYNIN CHLORIDE 5 MG TABLET PO SCH ×2 (08:16→19:39)
[2020-09-22] MEDS: DOCUSATE SODIUM 100 MG CAPSULE PO SCH (08:16)
[2020-09-22] MEDS: DIVALPROEX 125 MG CAP.SPRINK PO SCH (08:16)
[2020-09-22] MEDS: POTASSIUM CHLORIDE 20 MEQ TABLET.ER. PO SCH ×3 (08:16→19:39)
[2020-09-22] MEDS: ASCORBIC ACID 500 MG TABLET PO SCH (08:16)
[2020-09-22] MEDS: TAMSULOSIN 0.4 MG CAP.ER.24H. PO SCH (08:16)
[2020-09-22 15:17] LABS: BASO # 0.1 x10^3/uL (0.0-0.2); BASO % 1 % (0-3); EOS # 0.3 x10^3/uL (0.0-0.7); EOS % 4 % (0-3); HEMATOCRIT 44.2 % (39.0-53.0); LYMPH # 2.6 x10^3/uL (1.0-4.8); LYMPH % 36 % (24-48); MEAN CORPUSCULAR HEMOGLOBIN 32 pg (25-35); MEAN CORPUSCULAR HGB CONC 34 g/dL (31-37); MEAN CORPUSCULAR VOLUME 93 fL (79-100); MONO # 0.8 x10^3/uL (0.0-1.1); MONO % 11 % (0-9); NEUT # 3.5 x10^3uL (1.8-7.7); NEUT % 49 % (31-73); PLATELET COUNT 154 x10^3/uL (140-400); RED BLOOD COUNT 4.74 x10^6/uL (4.30-5.70); RED CELL DISTRIBUTION WIDTH 14.8 % (11.5-14.5); WHITE BLOOD COUNT 7.3 x10^3/uL (4.0-11.0)
[2020-09-22 15:43] VITALS: BP 104/72
[2020-09-22] MEDS: DIVALPROEX ER 500 MG TAB.ER.24H PO SCH (19:39)
[2020-09-22] MEDS: MELATONIN 3 MG TABLET PO SCH (19:39)
[2020-09-22] MEDS: ATORVASTATIN CALCIUM 20 MG TABLET PO SCH (19:40)
[2020-09-22] MEDS: ACETAMINOPHEN 500 MG TABLET PO SCH (19:40)
[2020-09-22] MEDS: GABAPENTIN 300 MG CAPSULE. PO SCH (19:42)
[2020-09-22] MEDS: cloZAPine 25 MG TABLET PO SCH (19:47)
--- NOTE | 2020-09-22 21:13 | PDOC ---
Exam Note: Michael Note: Late entry for 09/21/2020. Please also refer to the separate dictated note~for this date of service dictated separately.~Patient seen individually. Discussed the patient with Nursing staff reviewed the chart.~Reviewed interim history and current functioning. Reviewed vital signs,~Labs/ Radiology~and current medic ations noted below. Continue current treatment with the changes noted in the dictated addendum note Assessment: Vital Signs/I&O: Vital Signs Date Time Temp Pulse Resp B/P (MAP) Pulse Ox O2 Delivery O2 Flow Rate FiO2 09/22/20 19:40 65 104/72 09/22/20 15:43 98.0 16 99 09/22/20 05:25 Room Air I & O 09/21/20 09/21/20 09/22/20 15:00 23:00 07:00 Intake Total 600 ml 840 ml Balance 600 ml 840 ml Labs: Laboratory Tests Test 09/22/20 00:04 09/22/20 14:40 Urine Collection Type Unknown Urine Color Yellow Urine Clarity Clear Urine pH 6.5 Urine Specific [place] 1.020 Urine Protein Neg (NEG-TRACE) Urine Glucose (UA) Neg mg/dL (NEG) Urine Ketones (Stick) Neg mg/dL (NEG) Urine Blood Neg (NEG) Urine Nitrite Neg (NEG) Urine Bilirubin Neg (NEG) Urine Urobilinogen Dipstick 2.0 mg/dL (0.2 mg/dL) Urine Leukocyte Esterase Neg (NEG) Urine RBC 0 /HPF (0-2) Urine WBC Occ /HPF (0-4) Urine Squamous Epithelial Cells Occ /LPF Urine Bacteria 0 /HPF (0-FEW) White Blood Count 7.3 x10^3/uL (4.0-11.0) Red Blood Count 4.74 x10^6/uL (4.30-5.70) Hemoglobin 15.0 g/dL (13.0-17.5) Hematocrit 44.2 % (39.0-53.0) Mean Corpuscular Volume 93 fL (79-100) Mean Corpuscular Hemoglobin 32 pg (25-35) Mean Corpuscular Hemoglobin Concent 34 g/dL (31-37) Red Cell Distribution Width 14.8 % (11.5-14.5) H Platelet Count 154 x10^3/uL (140-400) Neutrophils (%) (Auto) 49 % (31-73) Lymphocytes (%) (Auto) 36 % (24-48) Monocytes (%) (Auto) 11 % (0-9) H Eosinophils (%) (Auto) 4 % (0-3) H Basophils (%) (Auto) 1 % (0-3) Neutrophils # (Auto) 3.5 x10^3uL (1.8-7.7) Lymphocytes # (Auto) 2.6 x10^3/uL (1.0-4.8) Monocytes # (Auto) 0.8 x10^3/uL (0.0-1.1) Eosinophils # (Auto) 0.3 x10^3/uL (0.0-0.7) Basophils # (Auto) 0.1 x10^3/uL (0.0-0.2) Current Medications: Meds: Current Medications Medications (Trade) Dose Ordered Sig/Gloria Route PRN Reason Start Time Stop Time Status Last Admin Dose Admin Clozapine (Clozaril) 25 mg HS PO 09/22/20 21:00 09/22/20 19:47 I have reviewed the current psychotropics carefully including drug interactions. Risk benefit ratio favors no change other than as noted in my dictated progress note. Diagnosis: Problems: (1) Anxiety disorder (2) Impulse control disorder (3) Lewy body dementia with behavioral disturbance (4) Dementia, vascular, with delusions (5) Dementia in Alzheimer's disease with delusions (6) Major neurocognitive disorder (7) Major depressive disorder with psychotic features CAMERON ROSAS MD Sep 22, 2020 21:13
[2020-09-23] MEDS: LEVOTHYROXINE 25 MCG TABLET. PO SCH (05:33)
[2020-09-23 06:18] VITALS: BP 152/77
[2020-09-23] MEDS: DOCUSATE SODIUM 100 MG CAPSULE PO SCH (07:40)
[2020-09-23] MEDS: POLYETHYLENE GLYCOL 3350 17 GM PACKET. PO SCH (07:41)
[2020-09-23] MEDS: SENNOSIDES/DOCUSATE 8.6/50MG TABLET. PO SCH (07:42)
[2020-09-23] MEDS: CHLORHEXIDINE 0.12% 15 ML MOUTHWASH. SWSP SCH ×2 (08:09→20:23)
[2020-09-23] MEDS: MEMANTINE 10 MG TABLET. PO SCH ×2 (08:10→17:18)
[2020-09-23] MEDS: buPROPion XL 150 MG TAB.ER.24H PO SCH (08:10)
[2020-09-23] MEDS: RIVASTIGMINE 13.3MG PATCH. TD SCH (08:10)
[2020-09-23] MEDS: TIMOLOL 0.5% OPHTH SOLUTION 5ML BOTTLE. OU SCH ×2 (08:10→20:22)
[2020-09-23] MEDS: APIXABAN 5 MG TABLET. PO SCH ×2 (08:10→20:22)
[2020-09-23] MEDS: OXYBUTYNIN CHLORIDE 5 MG TABLET PO SCH ×2 (08:10→20:22)
[2020-09-23] MEDS: DIVALPROEX 125 MG CAP.SPRINK PO SCH (08:10)
[2020-09-23] MEDS: POTASSIUM CHLORIDE 20 MEQ TABLET.ER. PO SCH ×3 (08:10→20:21)
[2020-09-23] MEDS: ASCORBIC ACID 500 MG TABLET PO SCH (08:11)
[2020-09-23] MEDS: CARBIDOPA/LEVODOPA 10/100MG TABLET PO SCH ×4 (08:11→20:22)
[2020-09-23] MEDS: METOPROLOL SUCC 24HR ER 25 MG TAB.ER.24H. PO SCH ×2 (08:11→20:23)
[2020-09-23] MEDS: TAMSULOSIN 0.4 MG CAP.ER.24H. PO SCH (08:11)
[2020-09-23] MEDS: BUMETANIDE 1 MG TABLET PO SCH (08:11)
[2020-09-23 15:30] VITALS: BP 100/64
[2020-09-23] MEDS: MELATONIN 3 MG TABLET PO SCH (20:21)
[2020-09-23] MEDS: DIVALPROEX ER 500 MG TAB.ER.24H PO SCH (20:22)
[2020-09-23] MEDS: ATORVASTATIN CALCIUM 20 MG TABLET PO SCH (20:22)
[2020-09-23] MEDS: ACETAMINOPHEN 500 MG TABLET PO SCH (20:22)
[2020-09-23] MEDS: cloZAPine 25 MG TABLET PO SCH (20:22)
[2020-09-23] MEDS: GABAPENTIN 300 MG CAPSULE. PO SCH (20:24)
--- NOTE | 2020-09-23 20:52 | PDOC ---
Exam Note: Michael Note: Please also refer to the separate dictated note~for this date of service dictated separately.~Patient seen individually. Discussed the patient with Nursing staff reviewed the chart.~Reviewed interim history and current functioning. Reviewed vital signs,~Labs/ Radiology~and current medications noted below. Continue current treatment with the changes noted in the dictated addendum note Assessment: Vital Signs/I&O: Vital Signs Date Time Temp Pulse Resp B/P (MAP) Pulse Ox O2 Delivery O2 Flow Rate FiO2 09/23/20 20:23 79 100/64 09/23/20 15:30 96.9 20 95 09/22/20 05:25 Room Air I & O 09/22/20 09/22/20 09/23/20 15:00 23:00 07:00 Intake Total 480 ml 360 ml Balance 480 ml 360 ml Current Medications: Meds: Current Medications Medications (Trade) Dose Ordered Sig/Gloria Route PRN Reason Start Time Stop Time Status Last Admin Dose Admin Clozapine (Clozaril) 25 mg HS PO 09/22/20 21:00 09/23/20 20:22 I have reviewed the current psychotropics carefully including drug interactions. Risk benefit ratio favors no change other than as noted in my dictated progress note. Diagnosis: Problems: (1) Anxiety disorder (2) Impulse control disorder (3) Lewy body dementia with behavioral disturbance (4) Dementia, vascular, with delusions (5) Dementia in Alzheimer's disease with delusions (6) Major neurocognitive disorder CAMERON ROSAS MD Sep 23, 2020 20:52
[2020-09-24] MEDS: LEVOTHYROXINE 25 MCG TABLET. PO SCH (05:42)
[2020-09-24 06:23] VITALS: BP 131/79
--- NOTE | 2020-09-24 07:00 | PDOC ---
Exam Note: Michael Note: This note is a late entry for 09/20/2020 covers elements not covered in my initial note. Subjective: The patient was seen face to face in the evening of 09/20/2020 with Dionne BRASHER, discussed and reviewed the chart. He slept 7 hours previous night. Overall the patient remains confused, believes he is at work, had had intermittent hallucinations, delusions. He seems to know where he is. Review of Systems: No CV, , pulmonary, eye system symptoms on review. Mental Status Exam: The patient is oriented to himself and situation. Eye contact is poor. Psychomotor activity is reduced due to Parkinsons. Verbal response is monosyllabic. Abstraction is fair. Computation is impaired. Lang uage function is intact. Mood and affect somewhat withdrawn. No suicidal or homicidal ideation. Laboratory Data: Reviewed. Impression: Major depressive disorder rule out psychotic features. Lewy body dementia early with delusion, depression. Anxiety disorder unspecified. Impulse control disorder unspecified. Plan: No change from initial note. The patient is currently on Risperdal 0.5 mg a day and he is still having extrapyramidal side effects and alexy effect consequent to his Parkinsons but he needs better control of his psychosis. Increase in Risperdal does not seem an option. Other antipsychotics have failed. Seroquel is probably less efficacious than Risperdal. We may consider Clozaril. We will watch another day and then decide. Assessment: Vital Signs/I&O: Vital Signs Date Time Temp Pulse Resp B/P (MAP) Pulse Ox O2 Delivery O2 Flow Rate FiO2 09/24/20 06:23 97.4 60 18 131/79 (96) 95 Room Air I & O 09/23/20 09/23/20 09/24/20 15:00 23:00 07:00 Intake Total 480 ml 360 ml 120 ml Balance 480 ml 360 ml 120 ml Current Medications: Meds: Current Medications Medications (Trade) Dose Ordered Sig/Gloria Route PRN Reason Start Time Stop Time Status Last Admin Dose Admin Acetaminophen (Tylenol) 500 mg HS PO 09/01/20 21:00 09/23/20 20:22 Apixaban (Eliquis) 5 mg BID PO 09/01/20 21:00 09/23/20 20:22 Bumetanide (Bumex) 1 mg DAILY PO 09/02/20 09:00 09/08/20 12:01 DC 09/08/20 08:01 Carbidopa/Levodopa (Sinemet 10/100) 0.5 tab [id number] PO 09/01/20 17:00 09/23/20 20:22 Diclofenac Sodium (Voltaren) 1 camilla PRN BID PRN TP MUSCLE PAIN 09/01/20 15:30 Divalproex Sodium (Depakote Sprinkles) 125 mg DAILY PO 09/02/20 09:00 09/02/20 09:00 DC 09/02/20 08:22 Divalproex Sodium (Depakote Er) 500 mg QHS PO 09/01/20 21:00 09/23/20 20:22 Docusate Sodium (Colace) 100 mg DAILY PO 09/02/20 09:00 09/22/20 08:16 Gabapentin (Neurontin) 300 mg HS PO 09/01/20 21:00 09/23/20 20:24 Ibuprofen (Motrin) 400 mg PRN Q8HRS PRN PO PAIN 09/01/20 15:30 UNV Levothyroxine Sodium (Synthroid) 25 mcg DAILYAC PO 09/02/20 07:30 09/01/20 19:50 DC Magnesium Hydroxide (Milk Of Magnesia) 2,400 mg PRN QHS PRN PO CONSTIPATION, 2ND CHOICE 09/01/20 15:30 09/04/20 05:12 Memantine (Namenda) 10 mg [id number] PO 09/01/20 16:30 09/23/20 17:18 Metoprolol Succinate (Toprol Xl) 12.5 mg BID PO 09/01/20 21:00 09/23/20 08:11 Olanzapine (ZyPREXA ZYDIS) 5 mg PRN Q12HR PRN PO ANXIETY / AGITATION 09/01/20 15:30 09/20/20 20:10 Polyethylene Glycol (miraLAX) 17 gm DAILY PO 09/02/20 09:00 09/22/20 08:14 Polyethylene Glycol (miraLAX) 17 gm PRN DAILY PRN PO CONSTIPATION, 1ST CHOICE 09/01/20 15:30 Potassium Chloride (Klor-Con) 20 meq BID PO 09/01/20 21:00 09/08/20 12:01 DC 09/08/20 08:01 Risperidone (RisperDAL) 0.5 mg TID PO 09/01/20 21:00 09/14/20 17:54 DC 09/14/20 06:05 Rivastigmine (Exelon 13.3mg) 1 patch DAILY TD 09/02/20 09:00 09/23/20 08:10 Senna/Docusate Sodium (Senna Plus) 1 tab DAILY PO 09/02/20 09:00 09/22/20 08:14 Sertraline HCl (Zoloft) 50 mg DAILY PO 09/02/20 09:00 09/02/20 16:48 DC 09/02/20 08:22 Tamsulosin HCl (Flomax) 0.4 mg DAILY PO 09/02/20 09:00 09/23/20 08:11 Ascorbic Acid (Vitamin C) 500 mg DAILY PO 09/02/20 09:00 09/23/20 08:11 Atorvastatin Calcium (Lipitor) 40 mg QHS PO 09/01/20 21:00 09/23/20 20:22 Non-Formulary Medication (Capsaicin/ Menthol (Salonpas Gel-Patch Hot)) 1 each HS TP 09/01/20 21:00 UNV Chlorhexidine Gluconate (Peridex) 15 ml BID SWSP 09/01/20 21:00 09/23/20 20:23 Multi-Ingred Cream/Lotion/Oil/ Oint (Hydrocerin) 1 camilla PRN BID PRN TP dry skin 09/01/20 16:45 Melatonin (Melatonin) 3 mg HS PO 09/01/20 21:00 09/23/20 20:21 Non-Formulary Medication (Menthol (Biofreeze)) 1 camilla PRN TID PRN TOP MUSCLE PAIN 09/01/20 15:30 UNV Cyclobenzaprine HCl (Flexeril) 10 mg PRN TID PRN PO low back pain 09/01/20 17:00 09/16/20 19:50 Oxybutynin Chloride (Ditropan) 5 mg BID PO 09/01/20 21:00 09/23/20 20:22 Timolol Maleate (Timoptic 0.5% Ophth) 1 drop BID OU 09/01/20 21:00 09/23/20 20:22 Multi-Ingredient Ointment (Analgesic [place]) 1 camilla PRN QID PRN TP MUSCLE PAIN 09/01/20 16:15 Cancel Al Hydroxide/Mg Hydroxide (Mylanta Plus Xs) 15 ml PRN AFTMEALHC PRN PO DYSPEPSIA 09/01/20 16:15 Levothyroxine Sodium (Synthroid) 25 mcg DAILY06 PO 09/02/20 06:00 09/24/20 05:42 Divalproex Sodium (Depakote Er) 125 mg DAILY PO 09/02/20 09:00 Cancel Sertraline HCl (Zoloft) 75 mg DAILY PO 09/03/20 09:00 09/05/20 11:00 DC 09/05/20 07:45 Sertraline HCl (Zoloft) 100 mg DAILY PO 09/06/20 09:00 09/12/20 18:22 DC 09/12/20 10:10 Divalproex Sodium (Depakote Sprinkles) 125 mg DAILY PO 09/03/20 09:00 09/04/20 17:23 DC 09/04/20 10:52 Divalproex Sodium (Depakote Sprinkles) 250 mg DAILY PO 09/05/20 09:00 09/23/20 08:10 Bumetanide (Bumex) 2 mg DAILY PO 09/09/20 09:00 09/23/20 08:11 Potassium Chloride (Klor-Con) 20 meq TID PO 09/08/20 14:00 09/23/20 20:21 Bumetanide (Bumex) 1 mg 1X ONCE PO 09/08/20 14:00 09/08/20 14:01 DC 09/08/20 14:00 Bupropion HCl (Wellbutrin Xl) 150 mg DAILY PO 09/13/20 09:00 09/23/20 08:10 Risperidone (RisperDAL) 0.5 mg QHS PO 09/15/20 21:00 09/22/20 04:20 DC 09/21/20 19:33 Clozapine (Clozaril) 25 mg HS PO 09/22/20 21:00 09/23/20 20:22 I have reviewed the current psychotropics carefully including drug interactions. Risk benefit ratio favors no change other than as noted in my dictated progress note. Diagnosis: Problems: (1) Anxiety disorder (2) Impulse control disorder (3) Lewy body dementia with behavioral disturbance (4) Dementia, vascular, with delusions (5) Dementia in Alzheimer's disease with delusions (6) Major neurocognitive disorder (7) Major depressive disorder with psychotic features CAMERON ROSAS MD Sep 24, 2020 07:00
--- NOTE | 2020-09-24 07:38 | PDOC ---
Exam Note: Michael Note: This note is a late entry for 09/21/2020 covers elements not covered in my initial note. Subjective: The patient was seen face to face in the evening of 09/21/2020 with Dionne BRASHER, discussed and reviewed the chart. He slept 7-3/4 hours previous night. The patient has been delusional last night and this morning. We will check UA if there is no UTI to explain the ongoing psychotic symptoms, we may start Clozaril tonight if approved by the pharmacy consult. Dionne BRASHER will follow through with this. If we start the Clozaril, we will check CBC, absolute neutrophil count every Thursday. Review of Systems: No CV, , pulmonary, eye system symptoms on review. Mental Status Exam: The patient is oriented to himself and situation. Eye contact is poor. Psychomotor activity is reduced due to Parkinsons. Verbal response is monosyllabic. Abstraction is fair. Computation is impaired. Language function is intact. Mood and affect somewhat withdrawn. No suicidal or homicidal ideation. Laboratory Data: Reviewed. Impression: Major depressive disorder rule out psychotic features. Lewy body dementia early with delusion, depression. Anxiety disorder unspecified. Impulse control disorder unspecified. Plan: No change from initial note. We will start Clozaril 25 mg h.s. and check the labs. Assessment: Vital Signs/I&O: Vital Signs Date Time Temp Pulse Resp B/P (MAP) Pulse Ox O2 Delivery O2 Flow Rate FiO2 09/24/20 06:23 97.4 60 18 131/79 (96) 95 Room Air I & O 09/23/20 09/23/20 09/24/20 15:00 23:00 07:00 Intake Total 480 ml 360 ml 120 ml Balance 480 ml 360 ml 120 ml Current Medications: Meds: Current Medications Medications (Trade) Dose Ordered Sig/Gloria Route PRN Reason Start Time Stop Time Status Last Admin Dose Admin Acetaminophen (Tylenol) 500 mg HS PO 09/01/20 21:00 09/23/20 20:22 Apixaban (Eliquis) 5 mg BID PO 09/01/20 21:00 09/23/20 20:22 Bumetanide (Bumex) 1 mg DAILY PO 09/02/20 09:00 09/08/20 12:01 DC 09/08/20 08:01 Carbidopa/Levodopa (Sinemet 10/100) 0.5 tab [id number] PO 09/01/20 17:00 09/23/20 20:22 Diclofenac Sodium (Voltaren) 1 camilla PRN BID PRN TP MUSCLE PAIN 09/01/20 15:30 Divalproex Sodium (Depakote Sprinkles) 125 mg DAILY PO 09/02/20 09:00 09/02/20 09:00 DC 09/02/20 08:22 Divalproex Sodium (Depakote Er) 500 mg QHS PO 09/01/20 21:00 09/23/20 20:22 Docusate Sodium (Colace) 100 mg DAILY PO 09/02/20 09:00 09/22/20 08:16 Gabapentin (Neurontin) 300 mg HS PO 09/01/20 21:00 09/23/20 20:24 Ibuprofen (Motrin) 400 mg PRN Q8HRS PRN PO PAIN 09/01/20 15:30 UNV Levothyroxine Sodium (Synthroid) 25 mcg DAILYAC PO 09/02/20 07:30 09/01/20 19:50 DC Magnesium Hydroxide (Milk Of Magnesia) 2,400 mg PRN QHS PRN PO CONSTIPATION, 2ND CHOICE 09/01/20 15:30 09/04/20 05:12 Memantine (Namenda) 10 mg [id number] PO 09/01/20 16:30 09/23/20 17:18 Metoprolol Succinate (Toprol Xl) 12.5 mg BID PO 09/01/20 21:00 09/23/20 08:11 Olanzapine (ZyPREXA ZYDIS) 5 mg PRN Q12HR PRN PO ANXIETY / AGITATION 09/01/20 15:30 09/20/20 20:10 Polyethylene Glycol (miraLAX) 17 gm DAILY PO 09/02/20 09:00 09/22/20 08:14 Polyethylene Glycol (miraLAX) 17 gm PRN DAILY PRN PO CONSTIPATION, 1ST CHOICE 09/01/20 15:30 Potassium Chloride (Klor-Con) 20 meq BID PO 09/01/20 21:00 09/08/20 12:01 DC 09/08/20 08:01 Risperidone (RisperDAL) 0.5 mg TID PO 09/01/20 21:00 09/14/20 17:54 DC 09/14/20 06:05 Rivastigmine (Exelon 13.3mg) 1 patch DAILY TD 09/02/20 09:00 09/23/20 08:10 Senna/Docusate Sodium (Senna Plus) 1 tab DAILY PO 09/02/20 09:00 09/22/20 08:14 Sertraline HCl (Zoloft) 50 mg DAILY PO 09/02/20 09:00 09/02/20 16:48 DC 09/02/20 08:22 Tamsulosin HCl (Flomax) 0.4 mg DAILY PO 09/02/20 09:00 09/23/20 08:11 Ascorbic Acid (Vitamin C) 500 mg DAILY PO 09/02/20 09:00 09/23/20 08:11 Atorvastatin Calcium (Lipitor) 40 mg QHS PO 09/01/20 21:00 09/23/20 20:22 Non-Formulary Medication (Capsaicin/ Menthol (Salonpas Gel-Patch Hot)) 1 each HS TP 09/01/20 21:00 UNV Chlorhexidine Gluconate (Peridex) 15 ml BID SWSP 09/01/20 21:00 09/23/20 20:23 Multi-Ingred Cream/Lotion/Oil/ Oint (Hydrocerin) 1 camilla PRN BID PRN TP dry skin 09/01/20 16:45 Melatonin (Melatonin) 3 mg HS PO 09/01/20 21:00 09/23/20 20:21 Non-Formulary Medication (Menthol (Biofreeze)) 1 camilla PRN TID PRN TOP MUSCLE PAIN 09/01/20 15:30 UNV Cyclobenzaprine HCl (Flexeril) 10 mg PRN TID PRN PO low back pain 09/01/20 17:00 09/16/20 19:50 Oxybutynin Chloride (Ditropan) 5 mg BID PO 09/01/20 21:00 09/23/20 20:22 Timolol Maleate (Timoptic 0.5% Ophth) 1 drop BID OU 09/01/20 21:00 09/23/20 20:22 Multi-Ingredient Ointment (Analgesic [place]) 1 camilla PRN QID PRN TP MUSCLE PAIN 09/01/20 16:15 Cancel Al Hydroxide/Mg Hydroxide (Mylanta Plus Xs) 15 ml PRN AFTMEALHC PRN PO DYSPEPSIA 09/01/20 16:15 Levothyroxine Sodium (Synthroid) 25 mcg DAILY06 PO 09/02/20 06:00 09/24/20 05:42 Divalproex Sodium (Depakote Er) 125 mg DAILY PO 09/02/20 09:00 Cancel Sertraline HCl (Zoloft) 75 mg DAILY PO 09/03/20 09:00 09/05/20 11:00 DC 09/05/20 07:45 Sertraline HCl (Zoloft) 100 mg DAILY PO 09/06/20 09:00 09/12/20 18:22 DC 09/12/20 10:10 Divalproex Sodium (Depakote Sprinkles) 125 mg DAILY PO 09/03/20 09:00 09/04/20 17:23 DC 09/04/20 10:52 Divalproex Sodium (Depakote Sprinkles) 250 mg DAILY PO 09/05/20 09:00 09/23/20 08:10 Bumetanide (Bumex) 2 mg DAILY PO 09/09/20 09:00 09/23/20 08:11 Potassium Chloride (Klor-Con) 20 meq TID PO 09/08/20 14:00 09/23/20 20:21 Bumetanide (Bumex) 1 mg 1X ONCE PO 09/08/20 14:00 09/08/20 14:01 DC 09/08/20 14:00 Bupropion HCl (Wellbutrin Xl) 150 mg DAILY PO 09/13/20 09:00 09/23/20 08:10 Risperidone (RisperDAL) 0.5 mg QHS PO 09/15/20 21:00 09/22/20 04:20 DC 09/21/20 19:33 Clozapine (Clozaril) 25 mg HS PO 09/22/20 21:00 09/23/20 20:22 I have reviewed the current psychotropics carefully including drug interactions. Risk benefit ratio favors no change other than as noted in my dictated progress note. Diagnosis: Problems: (1) Anxiety disorder (2) Impulse control disorder (3) Lewy body dementia with behavioral disturbance (4) Dementia, vascular, with delusions (5) Dementia in Alzheimer's disease with delusions (6) Major neurocognitive disorder (7) Major depressive disorder with psychotic features CAMERON ROSAS MD Sep 24, 2020 07:38
--- NOTE | 2020-09-24 08:04 | PDOC ---
Exam Note: Michael Note: This note is a late entry for 09/22/2020 covers elements not covered in my initial note. Subjective: The patient was seen face to face in the evening of 09/22/2020 with Zack BRASHER, discussed and reviewed the chart. He slept 6-1/2 hours previous night. The patient has reportedly done much better today. He has been more oriented. He was started on Clozaril previous night and Risperdal was discontinued. He has been more appropriate, coming to the nursing staff to have them assist his roommate. Review of Systems: No CV, , pulmonary, eye system symptoms on review. He does complain of Parkinsonian symptoms as I met with him in the evening. Mental Status Exam: The patient is oriented to himself and situation. He is much more animated, has more facial expression, since he has been off the Risperdal. He was started on Clozaril. Speech still has some latency. Often response is monosyllabic. Abstraction is fair. Computation is impaired. Language function is intact. No psychotic symptoms, suicidal or homicidal ideation on direct questioning. Laboratory Data: Reviewed. Impression: Major depressive disorder rule out psychotic features. Lewy body dementia early with delusion, depression. Anxiety disorder unspecified. Impulse control disorder unspecified. Plan: Continue Clozaril 25 mg h.s. Continue rest of the psychotropics unchanged. Assessment: Vital Signs/I&O: Vital Signs Date Time Temp Pulse Resp B/P (MAP) Pulse Ox O2 Delivery O2 Flow Rate FiO2 09/24/20 06:23 97.4 60 18 131/79 (96) 95 Room Air I & O 09/23/20 09/23/20 09/24/20 15:00 23:00 07:00 Intake Total 480 ml 360 ml 120 ml Balance 480 ml 360 ml 120 ml Current Medications: Meds: Current Medications Medications (Trade) Dose Ordered Sig/Gloria Route PRN Reason Start Time Stop Time Status Last Admin Dose Admin Acetaminophen (Tylenol) 500 mg HS PO 09/01/20 21:00 09/23/20 20:22 Apixaban (Eliquis) 5 mg BID PO 09/01/20 21:00 09/23/20 20:22 Bumetanide (Bumex) 1 mg DAILY PO 09/02/20 09:00 09/08/20 12:01 DC 1/30/21 08:01 Carbidopa/Levodopa (Sinemet 10/100) 0.5 tab [id number] PO 09/01/20 17:00 09/23/20 20:22 Diclofenac Sodium (Voltaren) 1 camilla PRN BID PRN TP MUSCLE PAIN 09/01/20 15:30 Divalproex Sodium (Depakote Sprinkles) 125 mg DAILY PO 09/02/20 09:00 09/02/20 09:00 DC 09/02/20 08:22 Divalproex Sodium (Depakote Er) 500 mg QHS PO 09/01/20 21:00 09/23/20 20:22 Docusate Sodium (Colace) 100 mg DAILY PO 09/02/20 09:00 09/22/20 08:16 Gabapentin (Neurontin) 300 mg HS PO 09/01/20 21:00 09/23/20 20:24 Ibuprofen (Motrin) 400 mg PRN Q8HRS PRN PO PAIN 09/01/20 15:30 UNV Levothyroxine Sodium (Synthroid) 25 mcg DAILYAC PO 09/02/20 07:30 09/01/20 19:50 DC Magnesium Hydroxide (Milk Of Magnesia) 2,400 mg PRN QHS PRN PO CONSTIPATION, 2ND CHOICE 09/01/20 15:30 09/04/20 05:12 Memantine (Namenda) 10 mg [id number] PO 09/01/20 16:30 09/23/20 17:18 Metoprolol Succinate (Toprol Xl) 12.5 mg BID PO 09/01/20 21:00 09/23/20 08:11 Olanzapine (ZyPREXA ZYDIS) 5 mg PRN Q12HR PRN PO ANXIETY / AGITATION 09/01/20 15:30 09/20/20 20:10 Polyethylene Glycol (miraLAX) 17 gm DAILY PO 09/02/20 09:00 09/22/20 08:14 Polyethylene Glycol (miraLAX) 17 gm PRN DAILY PRN PO CONSTIPATION, 1ST CHOICE 09/01/20 15:30 Potassium Chloride (Klor-Con) 20 meq BID PO 09/01/20 21:00 09/08/20 12:01 DC 09/08/20 08:01 Risperidone (RisperDAL) 0.5 mg TID PO 09/01/20 21:00 09/14/20 17:54 DC 09/14/20 06:05 Rivastigmine (Exelon 13.3mg) 1 patch DAILY TD 09/02/20 09:00 09/23/20 08:10 Senna/Docusate Sodium (Senna Plus) 1 tab DAILY PO 09/02/20 09:00 09/22/20 08:14 Sertraline HCl (Zoloft) 50 mg DAILY PO 09/02/20 09:00 09/02/20 16:48 DC 09/02/20 08:22 Tamsulosin HCl (Flomax) 0.4 mg DAILY PO 09/02/20 09:00 09/23/20 08:11 Ascorbic Acid (Vitamin C) 500 mg DAILY PO 09/02/20 09:00 09/23/20 08:11 Atorvastatin Calcium (Lipitor) 40 mg QHS PO 09/01/20 21:00 09/23/20 20:22 Non-Formulary Medication (Capsaicin/ Menthol (Salonpas Gel-Patch Hot)) 1 each HS TP 09/01/20 21:00 UNV Chlorhexidine Gluconate (Peridex) 15 ml BID SWSP 09/01/20 21:00 09/23/20 20:23 Multi-Ingred Cream/Lotion/Oil/ Oint (Hydrocerin) 1 camilla PRN BID PRN TP dry skin 09/01/20 16:45 Melatonin (Melatonin) 3 mg HS PO 09/01/20 21:00 09/23/20 20:21 Non-Formulary Medication (Menthol (Biofreeze)) 1 camilla PRN TID PRN TOP MUSCLE PAIN 09/01/20 15:30 UNV Cyclobenzaprine HCl (Flexeril) 10 mg PRN TID PRN PO low back pain 09/01/20 17:00 09/16/20 19:50 Oxybutynin Chloride (Ditropan) 5 mg BID PO 09/01/20 21:00 09/23/20 20:22 Timolol Maleate (Timoptic 0.5% Ophth) 1 drop BID OU 09/01/20 21:00 09/23/20 20:22 Multi-Ingredient Ointment (Analgesic [place]) 1 camilla PRN QID PRN TP MUSCLE PAIN 09/01/20 16:15 Cancel Al Hydroxide/Mg Hydroxide (Mylanta Plus Xs) 15 ml PRN AFTMEALHC PRN PO DYSPEPSIA 09/01/20 16:15 Levothyroxine Sodium (Synthroid) 25 mcg DAILY06 PO 09/02/20 06:00 09/24/20 05:42 Divalproex Sodium (Depakote Er) 125 mg DAILY PO 09/02/20 09:00 Cancel Sertraline HCl (Zoloft) 75 mg DAILY PO 09/03/20 09:00 09/05/20 11:00 DC 09/05/20 07:45 Sertraline HCl (Zoloft) 100 mg DAILY PO 09/06/20 09:00 09/12/20 18:22 DC 09/12/20 10:10 Divalproex Sodium (Depakote Sprinkles) 125 mg DAILY PO 09/03/20 09:00 09/04/20 17:23 DC 09/04/20 10:52 Divalproex Sodium (Depakote Sprinkles) 250 mg DAILY PO 09/05/20 09:00 09/23/20 08:10 Bumetanide (Bumex) 2 mg DAILY PO 09/09/20 09:00 09/23/20 08:11 Potassium Chloride (Klor-Con) 20 meq TID PO 09/08/20 14:00 09/23/20 20:21 Bumetanide (Bumex) 1 mg 1X ONCE PO 09/08/20 14:00 09/08/20 14:01 DC 09/08/20 14:00 Bupropion HCl (Wellbutrin Xl) 150 mg DAILY PO 09/13/20 09:00 09/23/20 08:10 Risperidone (RisperDAL) 0.5 mg QHS PO 09/15/20 21:00 09/22/20 04:20 DC 09/21/20 19:33 Clozapine (Clozaril) 25 mg HS PO 09/22/20 21:00 09/23/20 20:22 I have reviewed the current psychotropics carefully including drug interactions. Risk benefit ratio favors no change other than as noted in my dictated progress note. Diagnosis: Problems: (1) Anxiety disorder (2) Impulse control disorder (3) Lewy body dementia with behavioral disturbance (4) Dementia, vascular, with delusions (5) Dementia in Alzheimer's disease with delusions (6) Major neurocognitive disorder (7) Major depressive disorder with psychotic features CAMERON ROSAS MD Sep 24, 2020 08:04
--- NOTE | 2020-09-24 08:31 | PDOC ---
Exam Note: Michael Note: This note is a late entry for 09/23/2020 covers elements not covered in my initial note. Subjective: The patient was seen face to face in the evening of 09/23/2020 with Zack BRASHER, discussed and reviewed the chart. He slept 8 hours previous night. The patient has had a good day. He had a telephone conversation with his twice and did well. He has been wandering the unit, able to ambulate better, has more expression facially. This has been evident since we have stopped the Risperdal and started him on Clozaril. He does appear somewhat more confused this evening as compared to yesterday and again consistent with his Lewy body dementia. Review of Systems: No CV, , pulmonary, eye system symptoms on review. Mental Status Exam: The patient is oriented to himself and situation. Speech has some latency, coherent. Often response is monosyllabic. Abstraction is fair. Computation is impaired. Language function is intact. Mood and affect withdrawn. Laboratory Data: Reviewed. Impression: Major depressive disorder rule out psychotic features. Lewy body dementia early with delusion, depression. Anxiety disorder unspecified. Impulse control disorder unspecified. Plan: Continue rest of the psychotropics unchanged. May consider increasing Clozaril if we see evidence of psychotic symptoms. Assessment: Vital Signs/I&O: Vital Signs Date Time Temp Pulse Resp B/P (MAP) Pulse Ox O2 Delivery O2 Flow Rate FiO2 09/24/20 06:23 97.4 60 18 131/79 (96) 95 Room Air I & O 09/23/20 09/23/20 09/24/20 15:00 23:00 07:00 Intake Total 480 ml 360 ml 120 ml Balance 480 ml 360 ml 120 ml Current Medications: Meds: Current Medications Medications (Trade) Dose Ordered Sig/Gloria Route PRN Reason Start Time Stop Time Status Last Admin Dose Admin Acetaminophen (Tylenol) 500 mg HS PO 09/01/20 21:00 09/23/20 20:22 Apixaban (Eliquis) 5 mg BID PO 09/01/20 21:00 09/23/20 20:22 Bumetanide (Bumex) 1 mg DAILY PO 09/02/20 09:00 09/08/20 12:01 DC 09/08/20 08:01 Carbidopa/Levodopa (Sinemet 10/100) 0.5 tab [id number] PO 09/01/20 17:00 09/23/20 20:22 Diclofenac Sodium (Voltaren) 1 camilla PRN BID PRN TP MUSCLE PAIN 09/01/20 15:30 Divalproex Sodium (Depakote Sprinkles) 125 mg DAILY PO 09/02/20 09:00 09/02/20 09:00 DC 09/02/20 08:22 Divalproex Sodium (Depakote Er) 500 mg QHS PO 09/01/20 21:00 09/23/20 20:22 Docusate Sodium (Colace) 100 mg DAILY PO 09/02/20 09:00 09/22/20 08:16 Gabapentin (Neurontin) 300 mg HS PO 09/01/20 21:00 09/23/20 20:24 Ibuprofen (Motrin) 400 mg PRN Q8HRS PRN PO PAIN 09/01/20 15:30 UNV Levothyroxine Sodium (Synthroid) 25 mcg DAILYAC PO 09/02/20 07:30 09/01/20 19:50 DC Magnesium Hydroxide (Milk Of Magnesia) 2,400 mg PRN QHS PRN PO CONSTIPATION, 2ND CHOICE 09/01/20 15:30 09/04/20 05:12 Memantine (Namenda) 10 mg [id number] PO 09/01/20 16:30 09/23/20 17:18 Metoprolol Succinate (Toprol Xl) 12.5 mg BID PO 09/01/20 21:00 09/23/20 08:11 Olanzapine (ZyPREXA ZYDIS) 5 mg PRN Q12HR PRN PO ANXIETY / AGITATION 09/01/20 15:30 09/20/20 20:10 Polyethylene Glycol (miraLAX) 17 gm DAILY PO 09/02/20 09:00 09/22/20 08:14 Polyethylene Glycol (miraLAX) 17 gm PRN DAILY PRN PO CONSTIPATION, 1ST CHOICE 09/01/20 15:30 Potassium Chloride (Klor-Con) 20 meq BID PO 09/01/20 21:00 09/08/20 12:01 DC 09/08/20 08:01 Risperidone (RisperDAL) 0.5 mg TID PO 09/01/20 21:00 09/14/20 17:54 DC 09/14/20 06:05 Rivastigmine (Exelon 13.3mg) 1 patch DAILY TD 09/02/20 09:00 09/23/20 08:10 Senna/Docusate Sodium (Senna Plus) 1 tab DAILY PO 09/02/20 09:00 09/22/20 08:14 Sertraline HCl (Zoloft) 50 mg DAILY PO 09/02/20 09:00 09/02/20 16:48 DC 09/02/20 08:22 Tamsulosin HCl (Flomax) 0.4 mg DAILY PO 09/02/20 09:00 09/23/20 08:11 Ascorbic Acid (Vitamin C) 500 mg DAILY PO 09/02/20 09:00 09/23/20 08:11 Atorvastatin Calcium (Lipitor) 40 mg QHS PO 09/01/20 21:00 09/23/20 20:22 Non-Formulary Medication (Capsaicin/ Menthol (Salonpas Gel-Patch Hot)) 1 each HS TP 09/01/20 21:00 UNV Chlorhexidine Gluconate (Peridex) 15 ml BID SWSP 09/01/20 21:00 09/23/20 20:23 Multi-Ingred Cream/Lotion/Oil/ Oint (Hydrocerin) 1 camilla PRN BID PRN TP dry skin 09/01/20 16:45 Melatonin (Melatonin) 3 mg HS PO 09/01/20 21:00 09/23/20 20:21 Non-Formulary Medication (Menthol (Biofreeze)) 1 camilla PRN TID PRN TOP MUSCLE PAIN 09/01/20 15:30 UNV Cyclobenzaprine HCl (Flexeril) 10 mg PRN TID PRN PO low back pain 09/01/20 17:00 09/16/20 19:50 Oxybutynin Chloride (Ditropan) 5 mg BID PO 09/01/20 21:00 09/23/20 20:22 Timolol Maleate (Timoptic 0.5% Oph) 1 drop BID OU 09/01/20 21:00 09/23/20 20:22 Multi-Ingredient Ointment (Analgesic [place]) 1 camilla PRN QID PRN TP MUSCLE PAIN 09/01/20 16:15 Cancel Al Hydroxide/Mg Hydroxide (Mylanta Plus Xs) 15 ml PRN AFTMEALHC PRN PO DYSPEPSIA 09/01/20 16:15 Levothyroxine Sodium (Synthroid) 25 mcg DAILY06 PO 09/02/20 06:00 09/24/20 05:42 Divalproex Sodium (Depakote Er) 125 mg DAILY PO 09/02/20 09:00 Cancel Sertraline HCl (Zoloft) 75 mg DAILY PO 09/03/20 09:00 09/05/20 11:00 DC 09/05/20 07:45 Sertraline HCl (Zoloft) 100 mg DAILY PO 09/06/20 09:00 09/12/20 18:22 DC 09/12/20 10:10 Divalproex Sodium (Depakote Sprinkles) 125 mg DAILY PO 09/03/20 09:00 09/04/20 17:23 DC 09/04/20 10:52 Divalproex Sodium (Depakote Sprinkles) 250 mg DAILY PO 09/05/20 09:00 09/23/20 08:10 Bumetanide (Bumex) 2 mg DAILY PO 09/09/20 09:00 09/23/20 08:11 Potassium Chloride (Klor-Con) 20 meq TID PO 09/08/20 14:00 09/23/20 20:21 Bumetanide (Bumex) 1 mg 1X ONCE PO 09/08/20 14:00 09/08/20 14:01 DC 09/08/20 14:00 Bupropion HCl (Wellbutrin Xl) 150 mg DAILY PO 09/13/20 09:00 09/23/20 08:10 Risperidone (RisperDAL) 0.5 mg QHS PO 09/15/20 21:00 09/22/20 04:20 DC 09/21/20 19:33 Clozapine (Clozaril) 25 mg HS PO 09/22/20 21:00 09/23/20 20:22 I have reviewed the current psychotropics carefully including drug interactions. Risk benefit ratio favors no change other than as noted in my dictated progress note. Diagnosis: Problems: (1) Anxiety disorder (2) Impulse control disorder (3) Lewy body dementia with behavioral disturbance (4) Dementia, vascular, with delusions (5) Dementia in Alzheimer's disease with delusions (6) Parkinson's disease (7) Major neurocognitive disorder ALISON,MAN M MD Sep 24, 2020 08:31
[2020-09-24] MEDS: buPROPion XL 150 MG TAB.ER.24H PO SCH (09:00)
[2020-09-24] MEDS: METOPROLOL SUCC 24HR ER 25 MG TAB.ER.24H. PO SCH ×2 (09:00→20:44)
[2020-09-24] MEDS: TIMOLOL 0.5% OPHTH SOLUTION 5ML BOTTLE. OU SCH ×2 (09:00→20:44)
[2020-09-24] MEDS: RIVASTIGMINE 13.3MG PATCH. TD SCH (09:00)
[2020-09-24] MEDS: ASCORBIC ACID 500 MG TABLET PO SCH (09:00)
[2020-09-24] MEDS: CHLORHEXIDINE 0.12% 15 ML MOUTHWASH. SWSP SCH ×2 (09:00→20:45)
[2020-09-24] MEDS: OXYBUTYNIN CHLORIDE 5 MG TABLET PO SCH ×2 (09:00→20:43)
[2020-09-24] MEDS: TAMSULOSIN 0.4 MG CAP.ER.24H. PO SCH (09:00)
[2020-09-24] MEDS: DIVALPROEX 125 MG CAP.SPRINK PO SCH (09:00)
[2020-09-24] MEDS: POLYETHYLENE GLYCOL 3350 17 GM PACKET. PO SCH (09:00)
[2020-09-24] MEDS: POTASSIUM CHLORIDE 20 MEQ TABLET.ER. PO SCH ×3 (09:00→20:43)
[2020-09-24] MEDS: APIXABAN 5 MG TABLET. PO SCH ×2 (09:00→20:43)
[2020-09-24] MEDS: MEMANTINE 10 MG TABLET. PO SCH ×2 (09:00→16:50)
[2020-09-24] MEDS: SENNOSIDES/DOCUSATE 8.6/50MG TABLET. PO SCH (09:00)
[2020-09-24] MEDS: DOCUSATE SODIUM 100 MG CAPSULE PO SCH (09:00)
[2020-09-24] MEDS: CARBIDOPA/LEVODOPA 10/100MG TABLET PO SCH ×4 (09:00→20:45)
[2020-09-24] MEDS: BUMETANIDE 1 MG TABLET PO SCH (09:00)
--- NOTE | 2020-09-24 13:21 | TX PLAN ---
Interdisciplinary Tx Plan Admission Information Sep 01, 2020 at 14:55 Legal Status (on Admission): Voluntary DPOA/Guardian Name: Margy Stinson Contact Other Contact Name: [facility] Other Contact Verified Code Status: Full Code Allergies: Coded Allergies: No Known Drug Allergies (Unverified , 09/01/20) Diagnoses Primary Diagnosis: Lewy Body Dementia, Major Neurocognitive D/O with BD Reasons for Admission: Aggressive, Hallucinations, Confusion/Disoriented Problem in Patient's Words: He needs his medications adjusted. Additional Admission Comments: According to the intake, increased confusion, called 911 about missing kids, hallucinationg, labile behaviors, aggressive-pumping fist at peers. Problems Active Problems: Confusion Hallucination Inactive Problems: Medication Management Pt Strengths/Limitations Ability for [place]: Poor Cognitive Functioning/Ability: Fair Communication Skills/Ability: Fair Financial Resources: Good Insight/Judgement: Poor Intellectual Ability: Fair Physical Health: Poor Social Skills: Fair Stability in Family: Good Stability in School/Work: Poor Verbal Skills: Good Discharge Criteria Discharge Criteria: Adequate arrangements @DC, Improved behavior, Improved mood/thought Preliminary Discharge Plan Preliminary DC Plan: Current Living Arrange. Special Precautions Fall Risk: Low Initial D/C Plan Pt to return to [facility] Identified Discharge Needs: Continued psych services Currently Utilized Resources Currently Utilized Resources/P: Primary Care Physician Referrals Community Resources: Neurology follow-up Psychiatric services Identified Problems/Hx/Goals Objectives/Short-Term Goals Short Term Goals: Dec. Aggression, Dec. Hallucination/Delus, Dec. Outbursts, Promote Coping Skill Short Term Goals in Patient's: "I thought I was doing okay". Interventions/Frequency Staff Interventions/Frequency&: Psychiatrist to asses pt at least 3x per week for medication management. Social Work to assess pt at least 2x per week to identify barriers surrounding care and discharge planning. Nursing to complete 15 minute checks daily, assess behaviors and medication effects. 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 Pt is retired Education: Pt attended and received his Bachelors in Anthropology, Masters in Management and then attended school for respiratory therapy. Community Follow-up Primary Care Physician Updates to Memory Care facility Community Provider/Family Inpu: Pt was doing well for sometime. It was just evident that with his increase in hallucinations, that he needed an evaluation for a potential increase in his medications. 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 Pt is mostly calm, compliant and cooperative with all staff direction. Pt continues to have delusions; however, appears to have gotten much better. Pt was started on Clozaril 25mg q daily and may have an increase before discharge. At this time, discharge will be 09/27. SARA VIVAS Sep 24, 2020 13:21
[2020-09-24 15:36] LABS: BASO # 0.1 x10^3/uL (0.0-0.2); BASO % 1 % (0-3); EOS # 0.2 x10^3/uL (0.0-0.7); EOS % 4 % (0-3); HEMATOCRIT 46.2 % (39.0-53.0); HEMOGLOBIN 15.2 g/dL (13.0-17.5); LYMPH # 2.7 x10^3/uL (1.0-4.8); LYMPH % 42 % (24-48); MEAN CORPUSCULAR HEMOGLOBIN 31 pg (25-35); MEAN CORPUSCULAR HGB CONC 33 g/dL (31-37); MEAN CORPUSCULAR VOLUME 94 fL (79-100); MONO # 0.5 x10^3/uL (0.0-1.1); MONO % 8 % (0-9); NEUT # 2.9 x10^3uL (1.8-7.7); NEUT % 45 % (31-73); PLATELET COUNT 144 x10^3/uL (140-400); RED BLOOD COUNT 4.89 x10^6/uL (4.30-5.70); RED CELL DISTRIBUTION WIDTH 14.4 % (11.5-14.5); WHITE BLOOD COUNT 6.3 x10^3/uL (4.0-11.0)
[2020-09-24 16:05] LABS: ALBUMIN 3.5 g/dL (3.4-5.0); ALBUMIN/GLOBULIN RATIO 0.9 (1.0-1.7); CALCIUM 9.1 mg/dL (8.5-10.1); GFR 73.9; POTASSIUM 3.7 mmol/L (3.5-5.1); TOTAL BILIRUBIN 0.7 mg/dL (0.2-1.0); TOTAL PROTEIN 7.6 g/dL (6.4-8.2)
[2020-09-24 16:10] VITALS: BP 103/70
[2020-09-24] MEDS: MELATONIN 3 MG TABLET PO SCH (20:43)
[2020-09-24] MEDS: GABAPENTIN 300 MG CAPSULE. PO SCH (20:43)
[2020-09-24] MEDS: DIVALPROEX ER 500 MG TAB.ER.24H PO SCH (20:43)
[2020-09-24] MEDS: cloZAPine 25 MG TABLET PO SCH (20:43)
[2020-09-24] MEDS: ATORVASTATIN CALCIUM 20 MG TABLET PO SCH (20:44)
[2020-09-24] MEDS: ACETAMINOPHEN 500 MG TABLET PO SCH (20:45)
--- NOTE | 2020-09-24 21:02 | PDOC ---
Exam Note: Michael Note: Please also refer to the separate dictated note~for this date of service dictated separately.~Patient seen individually. Discussed the patient with Nursing staff reviewed the chart.~Reviewed interim history and current functioning. Reviewed vital signs,~Labs/ Radiology~and current medications noted below. Continue current treatment with the changes noted in the dictated addendum note Assessment: Vital Signs/I&O: Vital Signs Date Time Temp Pulse Resp B/P (MAP) Pulse Ox O2 Delivery O2 Flow Rate FiO2 09/24/20 20:44 90 103/70 09/24/20 16:10 96.7 18 98 09/24/20 06:23 Room Air I & O 09/23/20 09/23/20 09/24/20 15:00 23:00 07:00 Intake Total 480 ml 360 ml 120 ml Balance 480 ml 360 ml 120 ml Labs: Laboratory Tests Test 09/24/20 14:55 White Blood Count 6.3 x10^3/uL (4.0-11.0) Red Blood Count 4.89 x10^6/uL (4.30-5.70) Hemoglobin 15.2 g/dL (13.0-17.5) Hematocrit 46.2 % (39.0-53.0) Mean Corpuscular Volume 94 fL (79-100) Mean Corpuscular Hemoglobin 31 pg (25-35) Mean Corpuscular Hemoglobin Concent 33 g/dL (31-37) Red Cell Distribution Width 14.4 % (11.5-14.5) Platelet Count 144 x10^3/uL (140-400) Neutrophils (%) (Auto) 45 % (31-73) Lymphocytes (%) (Auto) 42 % (24-48) Monocytes (%) (Auto) 8 % (0-9) Eosinophils (%) (Auto) 4 % (0-3) H Basophils (%) (Auto) 1 % (0-3) Neutrophils # (Auto) 2.9 x10^3uL (1.8-7.7) Lymphocytes # (Auto) 2.7 x10^3/uL (1.0-4.8) Monocytes # (Auto) 0.5 x10^3/uL (0.0-1.1) Eosinophils # (Auto) 0.2 x10^3/uL (0.0-0.7) Basophils # (Auto) 0.1 x10^3/uL (0.0-0.2) Sodium Level 145 mmol/L (136-145) Potassium Level 3.7 mmol/L (3.5-5.1) Chloride Level 106 mmol/L (98-107) Carbon Dioxide Level 29 mmol/L (21-32) Anion Gap 10 (6-14) Blood Urea Nitrogen 15 mg/dL (8-26) Creatinine 1.0 mg/dL (0.7-1.3) Estimated GFR (Cockcroft-Gault) 73.9 BUN/Creatinine Ratio 15 (6-20) Glucose Level 153 mg/dL (70-99) H Calcium Level 9.1 mg/dL (8.5-10.1) Total Bilirubin 0.7 mg/dL (0.2-1.0) Aspartate Amino Transferase (AST) 22 U/L (15-37) Alanine Aminotransferase (ALT) 17 U/L (16-63) Alkaline Phosphatase 76 U/L (46-116) Total Protein 7.6 g/dL (6.4-8.2) Albumin 3.5 g/dL (3.4-5.0) Albumin/Globulin Ratio 0.9 (1.0-1.7) L Current Medications: Meds: Laboratory Tests Test 09/24/20 14:55 White Blood Count 6.3 x10^3/uL Red Blood Count 4.89 x10^6/uL Hemoglobin 15.2 g/dL Hematocrit 46.2 % Mean Corpuscular Volume 94 fL Mean Corpuscular Hemoglobin 31 pg Mean Corpuscular Hemoglobin Concent 33 g/dL Red Cell Distribution Width 14.4 % Platelet Count 144 x10^3/uL Neutrophils (%) (Auto) 45 % Lymphocytes (%) (Auto) 42 % Monocytes (%) (Auto) 8 % Eosinophils (%) (Auto) 4 % Basophils (%) (Auto) 1 % Neutrophils # (Auto) 2.9 x10^3uL Lymphocytes # (Auto) 2.7 x10^3/uL Monocytes # (Auto) 0.5 x10^3/uL Eosinophils # (Auto) 0.2 x10^3/uL Basophils # (Auto) 0.1 x10^3/uL Sodium Level 145 mmol/L Potassium Level 3.7 mmol/L Chloride Level 106 mmol/L Carbon Dioxide Level 29 mmol/L Anion Gap 10 Blood Urea Nitrogen 15 mg/dL Creatinine 1.0 mg/dL Estimated GFR (Cockcroft-Gault) 73.9 BUN/Creatinine Ratio 15 Glucose Level 153 mg/dL Calcium Level 9.1 mg/dL Total Bilirubin 0.7 mg/dL Aspartate Amino Transf (AST/SGOT) 22 U/L Alanine Aminotransferase (ALT/SGPT) 17 U/L Alkaline Phosphatase 76 U/L Total Protein 7.6 g/dL Albumin 3.5 g/dL Albumin/Globulin Ratio 0.9 Current Medications Medications (Trade) Dose Ordered Sig/Gloria Route PRN Reason Start Time Stop Time Status Last Admin Dose Admin Acetaminophen (Tylenol) 500 mg HS PO 09/01/20 21:00 09/24/20 20:45 Apixaban (Eliquis) 5 mg BID PO 09/01/20 21:00 09/24/20 20:43 Bumetanide (Bumex) 1 mg DAILY PO 09/02/20 09:00 09/08/20 12:01 DC 09/08/20 08:01 Carbidopa/Levodopa (Sinemet 10/100) 0.5 tab [id number] PO 09/01/20 17:00 09/24/20 20:45 Diclofenac Sodium (Voltaren) 1 camilla PRN BID PRN TP MUSCLE PAIN 09/01/20 15:30 Divalproex Sodium (Depakote Sprinkles) 125 mg DAILY PO 09/02/20 09:00 09/02/20 09:00 DC 09/02/20 08:22 Divalproex Sodium (Depakote Er) 500 mg QHS PO 09/01/20 21:00 09/24/20 20:43 Docusate Sodium (Colace) 100 mg DAILY PO 09/02/20 09:00 09/22/20 08:16 Gabapentin (Neurontin) 300 mg HS PO 09/01/20 21:00 09/24/20 20:43 Ibuprofen (Motrin) 400 mg PRN Q8HRS PRN PO PAIN 09/01/20 15:30 UNV Levothyroxine Sodium (Synthroid) 25 mcg DAILYAC PO 09/02/20 07:30 09/01/20 19:50 DC Magnesium Hydroxide (Milk Of Magnesia) 2,400 mg PRN QHS PRN PO CONSTIPATION, 2ND CHOICE 09/01/20 15:30 09/04/20 05:12 Memantine (Namenda) 10 mg [id number] PO 09/01/20 16:30 09/24/20 16:50 Metoprolol Succinate (Toprol Xl) 12.5 mg BID PO 09/01/20 21:00 09/23/20 08:11 Olanzapine (ZyPREXA ZYDIS) 5 mg PRN Q12HR PRN PO ANXIETY / AGITATION 09/01/20 15:30 09/20/20 20:10 Polyethylene Glycol (miraLAX) 17 gm DAILY PO 09/02/20 09:00 09/22/20 08:14 Polyethylene Glycol (miraLAX) 17 gm PRN DAILY PRN PO CONSTIPATION, 1ST CHOICE 09/01/20 15:30 Potassium Chloride (Klor-Con) 20 meq BID PO 09/01/20 21:00 09/08/20 12:01 DC 09/08/20 08:01 Risperidone (RisperDAL) 0.5 mg TID PO 09/01/20 21:00 09/14/20 17:54 DC 09/14/20 06:05 Rivastigmine (Exelon 13.3mg) 1 patch DAILY TD 09/02/20 09:00 09/23/20 08:10 Senna/Docusate Sodium (Senna Plus) 1 tab DAILY PO 09/02/20 09:00 09/22/20 08:14 Sertraline HCl (Zoloft) 50 mg DAILY PO 09/02/20 09:00 09/02/20 16:48 DC 09/02/20 08:22 Tamsulosin HCl (Flomax) 0.4 mg DAILY PO 09/02/20 09:00 09/23/20 08:11 Ascorbic Acid (Vitamin C) 500 mg DAILY PO 09/02/20 09:00 09/23/20 08:11 Atorvastatin Calcium (Lipitor) 40 mg QHS PO 09/01/20 21:00 09/24/20 20:44 Non-Formulary Medication (Capsaicin/ Menthol (Salonpas Gel-Patch Hot)) 1 each HS TP 09/01/20 21:00 UNV Chlorhexidine Gluconate (Peridex) 15 ml BID SWSP 09/01/20 21:00 09/23/20 20:23 Multi-Ingred Cream/Lotion/Oil/ Oint (Hydrocerin) 1 camilla PRN BID PRN TP dry skin 09/01/20 16:45 Melatonin (Melatonin) 3 mg HS PO 09/01/20 21:00 09/24/20 20:43 Non-Formulary Medication (Menthol (Biofreeze)) 1 camilla PRN TID PRN TOP MUSCLE PAIN 09/01/20 15:30 UNV Cyclobenzaprine HCl (Flexeril) 10 mg PRN TID PRN PO low back pain 09/01/20 17:00 09/16/20 19:50 Oxybutynin Chloride (Ditropan) 5 mg BID PO 09/01/20 21:00 09/24/20 20:43 Timolol Maleate (Timoptic 0.5% [facility]) 1 drop BID OU 09/01/20 21:00 09/23/20 20:22 Multi-Ingredient Ointment (Analgesic [place]) 1 camilla PRN QID PRN TP MUSCLE PAIN 09/01/20 16:15 Cancel Al Hydroxide/Mg Hydroxide (Mylanta Plus Xs) 15 ml PRN AFTMEALHC PRN PO DYSPEPSIA 09/01/20 16:15 Levothyroxine Sodium (Synthroid) 25 mcg DAILY06 PO 09/02/20 06:00 09/24/20 05:42 Divalproex Sodium (Depakote Er) 125 mg DAILY PO 09/02/20 09:00 Cancel Sertraline HCl (Zoloft) 75 mg DAILY PO 09/03/20 09:00 09/05/20 11:00 DC 09/05/20 07:45 Sertraline HCl (Zoloft) 100 mg DAILY PO 09/06/20 09:00 09/12/20 18:22 DC 09/12/20 10:10 Divalproex Sodium (Depakote Sprinkles) 125 mg DAILY PO 09/03/20 09:00 09/04/20 17:23 DC 09/04/20 10:52 Divalproex Sodium (Depakote Sprinkles) 250 mg DAILY PO 09/05/20 09:00 09/23/20 08:10 Bumetanide (Bumex) 2 mg DAILY PO 09/09/20 09:00 09/23/20 08:11 Potassium Chloride (Klor-Con) 20 meq TID PO 09/08/20 14:00 09/24/20 20:43 Bumetanide (Bumex) 1 mg 1X ONCE PO 09/08/20 14:00 09/08/20 14:01 DC 09/08/20 14:00 Bupropion HCl (Wellbutrin Xl) 150 mg DAILY PO 09/13/20 09:00 09/23/20 08:10 Risperidone (RisperDAL) 0.5 mg QHS PO 09/15/20 21:00 09/22/20 04:20 DC 09/21/20 19:33 Clozapine (Clozaril) 25 mg HS PO 09/22/20 21:00 09/24/20 20:43 I have reviewed the current psychotropics carefully including drug interactions. Risk benefit ratio favors no change other than as noted in my dictated progress note. Diagnosis: Problems: (1) Anxiety disorder (2) Impulse control disorder (3) Lewy body dementia with behavioral disturbance (4) Dementia, vascular, with delusions (5) Dementia in Alzheimer's disease with delusions (6) Major neurocognitive disorder (7) Parkinson's disease CAMERON ROSAS MD Sep 24, 2020 21:02
[2020-09-25 05:23] VITALS: BP 144/84
[2020-09-25] MEDS: LEVOTHYROXINE 25 MCG TABLET. PO SCH (05:33)
[2020-09-25] MEDS: DOCUSATE SODIUM 100 MG CAPSULE PO SCH (09:00)
[2020-09-25] MEDS: APIXABAN 5 MG TABLET. PO SCH ×2 (09:00→19:37)
[2020-09-25] MEDS: POTASSIUM CHLORIDE 20 MEQ TABLET.ER. PO SCH ×3 (09:00→19:37)
[2020-09-25] MEDS: ASCORBIC ACID 500 MG TABLET PO SCH (09:00)
[2020-09-25] MEDS: CARBIDOPA/LEVODOPA 10/100MG TABLET PO SCH ×4 (09:00→19:39)
[2020-09-25] MEDS: TIMOLOL 0.5% OPHTH SOLUTION 5ML BOTTLE. OU SCH ×2 (09:00→19:37)
[2020-09-25] MEDS: TAMSULOSIN 0.4 MG CAP.ER.24H. PO SCH (09:00)
[2020-09-25] MEDS: POLYETHYLENE GLYCOL 3350 17 GM PACKET. PO SCH (09:00)
[2020-09-25] MEDS: BUMETANIDE 1 MG TABLET PO SCH (09:00)
[2020-09-25] MEDS: OXYBUTYNIN CHLORIDE 5 MG TABLET PO SCH ×2 (09:00→19:37)
[2020-09-25] MEDS: buPROPion XL 150 MG TAB.ER.24H PO SCH (09:00)
[2020-09-25] MEDS: METOPROLOL SUCC 24HR ER 25 MG TAB.ER.24H. PO SCH ×2 (09:00→19:56)
[2020-09-25] MEDS: DIVALPROEX 125 MG CAP.SPRINK PO SCH (09:00)
[2020-09-25] MEDS: SENNOSIDES/DOCUSATE 8.6/50MG TABLET. PO SCH (09:00)
[2020-09-25] MEDS: RIVASTIGMINE 13.3MG PATCH. TD SCH (09:00)
[2020-09-25] MEDS: CHLORHEXIDINE 0.12% 15 ML MOUTHWASH. SWSP SCH ×2 (09:00→19:37)
[2020-09-25] MEDS: MEMANTINE 10 MG TABLET. PO SCH ×2 (09:00→17:29)
[2020-09-25 16:18] VITALS: BP 105/69
[2020-09-25] MEDS: ACETAMINOPHEN 500 MG TABLET PO SCH (19:37)
[2020-09-25] MEDS: ATORVASTATIN CALCIUM 20 MG TABLET PO SCH (19:37)
[2020-09-25] MEDS: MELATONIN 3 MG TABLET PO SCH (19:37)
[2020-09-25] MEDS: GABAPENTIN 300 MG CAPSULE. PO SCH (19:38)
[2020-09-25] MEDS: DIVALPROEX ER 500 MG TAB.ER.24H PO SCH (19:38)
[2020-09-25] MEDS: cloZAPine 25 MG TABLET PO SCH (19:38)
[2020-09-25 19:54] VITALS: BP 115/69
--- NOTE | 2020-09-25 21:13 | PDOC ---
Exam Note: Michael Note: This note is a late entry for 09/24/2020 covers elements not covered in my initial note. Subjective: The patient was seen face to face in the morning of 09/24/2020 for a treatment team meeting with Karina Blanton, Lissy Delgado and Fabiola (social sciences department chair), Serina Cosme, activity therapy and Aide BRASHER, discussed and reviewed the chart. He slept 8-1/2 hours previous night. The patient has been wandering, confused, compliant with medications. His absolute neutrophil count is within normal limits and he is doing well since we have changed the Risperdal to Clozaril 25 mg h.s. No clear psychotic symptoms noted. Review of Systems: Ambulation impaired due to Parkinsons disease. No CV, , pulmonary, eye system symptoms on review. Mental Status Exam: The patient is oriented to himself and situation. Speech has some latency, coherent. Often response is monosyllabic. Abstraction is fair. Computation is impaired. Language function is intact. Mood and affect withdrawn. Laboratory Data: Reviewed. Impression: Major depressive disorder rule out psychotic features. Lewy body dementia early with delusion, depression. Anxiety disorder unspecified. Impulse control disorder unspecified. Plan: If psychotic symptoms resurface, we will increase the Clozaril gradually. Assessment: Vital Signs/I&O: Vital Signs Date Time Temp Pulse Resp B/P (MAP) Pulse Ox O2 Delivery O2 Flow Rate FiO2 09/25/20 19:56 61 115/69 09/25/20 19:54 20 95 Room Air 09/25/20 16:18 97.0 I & O 0 09/24/20 09/24/20 09/25/20 15:00 23:00 07:00 Intake Total 0 ml 480 ml Balance 0 ml 480 ml Current Medications: Meds: Current Medications Medications (Trade) Dose Ordered Sig/Gloria Route PRN Reason Start Time Stop Time Status Last Admin Dose Admin Acetaminophen (Tylenol) 500 mg HS PO 09/01/20 21:00 09/25/20 19:37 Apixaban (Eliquis) 5 mg BID PO 09/01/20 21:00 09/25/20 19:37 Bumetanide (Bumex) 1 mg DAILY PO 09/02/20 09:00 09/08/20 12:01 DC 09/08/20 08:01 Carbidopa/Levodopa (Sinemet 10/100) 0.5 tab [id number] PO 09/01/20 17:00 09/25/20 19:39 Diclofenac Sodium (Voltaren) 1 camilla PRN BID PRN TP MUSCLE PAIN 09/01/20 15:30 Divalproex Sodium (Depakote Sprinkles) 125 mg DAILY PO 09/02/20 09:00 09/02/20 09:00 DC 09/02/20 08:22 Divalproex Sodium (Depakote Er) 500 mg QHS PO 09/01/20 21:00 09/25/20 19:38 Docusate Sodium (Colace) 100 mg DAILY PO 09/02/20 09:00 09/25/20 09:00 Gabapentin (Neurontin) 300 mg HS PO 09/01/20 21:00 09/25/20 19:38 Ibuprofen (Motrin) 400 mg PRN Q8HRS PRN PO PAIN 09/01/20 15:30 UNV Levothyroxine Sodium (Synthroid) 25 mcg DAILYAC PO 09/02/20 07:30 09/01/20 19:50 DC Magnesium Hydroxide (Milk Of Magnesia) 2,400 mg PRN QHS PRN PO CONSTIPATION, 2ND CHOICE 09/01/20 15:30 09/04/20 05:12 Memantine (Namenda) 10 mg [id number] PO 09/01/20 16:30 09/25/20 17:29 Metoprolol Succinate (Toprol Xl) 12.5 mg BID PO 09/01/20 21:00 09/25/20 19:56 Olanzapine (ZyPREXA ZYDIS) 5 mg PRN Q12HR PRN PO ANXIETY / AGITATION 09/01/20 15:30 09/20/20 20:10 Polyethylene Glycol (miraLAX) 17 gm DAILY PO 09/02/20 09:00 09/25/20 09:00 Polyethylene Glycol (miraLAX) 17 gm PRN DAILY PRN PO CONSTIPATION, 1ST CHOICE 09/01/20 15:30 Potassium Chloride (Klor-Con) 20 meq BID PO 09/01/20 21:00 09/08/20 12:01 DC 09/08/20 08:01 Risperidone (RisperDAL) 0.5 mg TID PO 09/01/20 21:00 09/14/20 17:54 DC 09/14/20 06:05 Rivastigmine (Exelon 13.3mg) 1 patch DAILY TD 09/02/20 09:00 09/25/20 09:00 Senna/Docusate Sodium (Senna Plus) 1 tab DAILY PO 09/02/20 09:00 09/25/20 09:00 Sertraline HCl (Zoloft) 50 mg DAILY PO 09/02/20 09:00 09/02/20 16:48 DC 09/02/20 08:22 Tamsulosin HCl (Flomax) 0.4 mg DAILY PO 09/02/20 09:00 09/25/20 09:00 Ascorbic Acid (Vitamin C) 500 mg DAILY PO 09/02/20 09:00 09/25/20 09:00 Atorvastatin Calcium (Lipitor) 40 mg QHS PO 09/01/20 21:00 09/25/20 19:37 Non-Formulary Medication (Capsaicin/ Menthol (Salonpas Gel-Patch Hot)) 1 each HS TP 09/01/20 21:00 UNV Chlorhexidine Gluconate (Peridex) 15 ml BID SWSP 09/01/20 21:00 09/25/20 19:37 Multi-Ingred Cream/Lotion/Oil/ Oint (Hydrocerin) 1 camilla PRN BID PRN TP dry skin 09/01/20 16:45 Melatonin (Melatonin) 3 mg HS PO 09/01/20 21:00 09/25/20 19:37 Non-Formulary Medication (Menthol (Biofreeze)) 1 camilla PRN TID PRN TOP MUSCLE PAIN 09/01/20 15:30 UNV Cyclobenzaprine HCl (Flexeril) 10 mg PRN TID PRN PO low back pain 09/01/20 17:00 09/16/20 19:50 Oxybutynin Chloride (Ditropan) 5 mg BID PO 09/01/20 21:00 09/25/20 19:37 Timolol Maleate (Timoptic 0.5% [place]hth) 1 drop BID OU 09/01/20 21:00 09/25/20 19:37 Multi-Ingredient Ointment (Analgesic [place]) 1 camilla PRN QID PRN TP MUSCLE PAIN 09/01/20 16:15 Cancel Al Hydroxide/Mg Hydroxide (Mylanta Plus Xs) 15 ml PRN AFTMEALHC PRN PO DYSPEPSIA 09/01/20 16:15 Levothyroxine Sodium (Synthroid) 25 mcg DAILY06 PO 09/02/20 06:00 09/25/20 05:33 Divalproex Sodium (Depakote Er) 125 mg DAILY PO 09/02/20 09:00 Cancel Sertraline HCl (Zoloft) 75 mg DAILY PO 09/03/20 09:00 09/05/20 11:00 DC 09/05/20 07:45 Sertraline HCl (Zoloft) 100 mg DAILY PO 09/06/20 09:00 09/12/20 18:22 DC 09/12/20 10:10 Divalproex Sodium (Depakote Sprinkles) 125 mg DAILY PO 09/03/20 09:00 09/04/20 17:23 DC 09/04/20 10:52 Divalproex Sodium (Depakote Sprinkles) 250 mg DAILY PO 09/05/20 09:00 09/25/20 09:00 Bumetanide (Bumex) 2 mg DAILY PO 09/09/20 09:00 09/25/20 09:00 Potassium Chloride (Klor-Con) 20 meq TID PO 09/08/20 14:00 09/25/20 19:37 Bumetanide (Bumex) 1 mg 1X ONCE PO 09/08/20 14:00 09/08/20 14:01 DC 09/08/20 14:00 Bupropion HCl (Wellbutrin Xl) 150 mg DAILY PO 09/13/20 09:00 09/25/20 09:00 Risperidone (RisperDAL) 0.5 mg QHS PO 09/15/20 21:00 09/22/20 04:20 DC 09/21/20 19:33 Clozapine (Clozaril) 25 mg HS PO 09/22/20 21:00 09/25/20 19:38 I have reviewed the current psychotropics carefully including drug interactions. Risk benefit ratio favors no change other than as noted in my dictated progress note. Diagnosis: Problems: (1) Anxiety disorder (2) Impulse control disorder (3) Lewy body dementia with behavioral disturbance (4) Dementia, vascular, with delusions (5) Dementia in Alzheimer's disease with delusions (6) Major neurocognitive disorder (7) Major depressive disorder with psychotic features CAMERON ROSAS MD Sep 25, 2020 21:13
--- NOTE | 2020-09-25 21:14 | PDOC ---
Exam Note: Michael Note: Please also refer to the separate dictated note~for this date of service dictated separately.~Patient seen individually. Discussed the patient with Nursing staff reviewed the chart.~Reviewed interim history and current functioning. Reviewed vital signs,~Labs/ Radiology~and current medications noted below. Continue current treatment with the changes noted in the dictated addendum note Assessment: Vital Signs/I&O: Vital Signs Date Time Temp Pulse Resp B/P (MAP) Pulse Ox O2 Delivery O2 Flow Rate FiO2 09/25/20 19:56 61 115/69 09/25/20 19:54 20 95 Room Air 09/25/20 16:18 97.0 I & O 09/24/20 09/24/20 09/25/20 15:00 23:00 07:00 Intake Total 0 ml 480 ml Balance 0 ml 480 ml Current Medications: Meds: Current Medications Medications (Trade) Dose Ordered Sig/Gloria Route PRN Reason Start Time Stop Time Status Last Admin Dose Admin Acetaminophen (Tylenol) 500 mg HS PO 09/01/20 21:00 09/25/20 19:37 Apixaban (Eliquis) 5 mg BID PO 09/01/20 21:00 09/25/20 19:37 Bumetanide (Bumex) 1 mg DAILY PO 09/02/20 09:00 09/08/20 12:01 DC 09/08/20 08:01 Carbidopa/Levodopa (Sinemet 10/100) 0.5 tab [id number] PO 09/01/20 17:00 09/25/20 19:39 Diclofenac Sodium (Voltaren) 1 camilla PRN BID PRN TP MUSCLE PAIN 09/01/20 15:30 Divalproex Sodium (Depakote Sprinkles) 125 mg DAILY PO 09/02/20 09:00 09/02/20 09:00 DC 09/02/20 08:22 Divalproex Sodium (Depakote Er) 500 mg QHS PO 09/01/20 21:00 09/25/20 19:38 Docusate Sodium (Colace) 100 mg DAILY PO 09/02/20 09:00 09/25/20 09:00 Gabapentin (Neurontin) 300 mg HS PO 09/01/20 21:00 09/25/20 19:38 Ibuprofen (Motrin) 400 mg PRN Q8HRS PRN PO PAIN 09/01/20 15:30 UNV Levothyroxine Sodium (Synthroid) 25 mcg DAILYAC PO 09/02/20 07:30 09/01/20 19:50 DC Magnesium Hydroxide (Milk Of Magnesia) 2,400 mg PRN QHS PRN PO CONSTIPATION, 2ND CHOICE 09/01/20 15:30 09/04/20 05:12 Memantine (Namenda) 10 mg [id number] PO 09/01/20 16:30 09/25/20 17:29 Metoprolol Succinate (Toprol Xl) 12.5 mg BID PO 09/01/20 21:00 09/25/20 19:56 Olanzapine (ZyPREXA ZYDIS) 5 mg PRN Q12HR PRN PO ANXIETY / AGITATION 09/01/20 15:30 09/20/20 20:10 Polyethylene Glycol (miraLAX) 17 gm DAILY PO 09/02/20 09:00 09/25/20 09:00 Polyethylene Glycol (miraLAX) 17 gm PRN DAILY PRN PO CONSTIPATION, 1ST CHOICE 09/01/20 15:30 Potassium Chloride (Klor-Con) 20 meq BID PO 09/01/20 21:00 09/08/20 12:01 DC 09/08/20 08:01 Risperidone (RisperDAL) 0.5 mg TID PO 09/01/20 21:00 09/14/20 17:54 DC 09/14/20 06:05 Rivastigmine (Exelon 13.3mg) 1 patch DAILY TD 09/02/20 09:00 09/25/20 09:00 Senna/Docusate Sodium (Senna Plus) 1 tab DAILY PO 09/02/20 09:00 09/25/20 09:00 Sertraline HCl (Zoloft) 50 mg DAILY PO 09/02/20 09:00 09/02/20 16:48 DC 09/02/20 08:22 Tamsulosin HCl (Flomax) 0.4 mg DAILY PO 09/02/20 09:00 09/25/20 09:00 Ascorbic Acid (Vitamin C) 500 mg DAILY PO 09/02/20 09:00 09/25/20 09:00 Atorvastatin Calcium (Lipitor) 40 mg QHS PO 09/01/20 21:00 09/25/20 19:37 Non-Formulary Medication (Capsaicin/ Menthol (Salonpas Gel-Patch Hot)) 1 each HS TP 09/01/20 21:00 UNV Chlorhexidine Gluconate (Peridex) 15 ml BID SWSP 09/01/20 21:00 09/25/20 19:37 Multi-Ingred Cream/Lotion/Oil/ Oint (Hydrocerin) 1 camilla PRN BID PRN TP dry skin 09/01/20 16:45 Melatonin (Melatonin) 3 mg HS PO 09/01/20 21:00 09/25/20 19:37 Non-Formulary Medication (Menthol (Biofreeze)) 1 camilla PRN TID PRN TOP MUSCLE PAIN 09/01/20 15:30 UNV Cyclobenzaprine HCl (Flexeril) 10 mg PRN TID PRN PO low back pain 09/01/20 17:00 09/16/20 19:50 Oxybutynin Chloride (Ditropan) 5 mg BID PO 09/01/20 21:00 09/25/20 19:37 Timolol Maleate (Timoptic 0.5% Oph) 1 drop BID OU 09/01/20 21:00 09/25/20 19:37 Multi-Ingredient Ointment (Analgesic [place]) 1 camilla PRN QID PRN TP MUSCLE PAIN 09/01/20 16:15 Cancel Al Hydroxide/Mg Hydroxide (Mylanta Plus Xs) 15 ml PRN AFTMEALHC PRN PO DYSPEPSIA 09/01/20 16:15 Levothyroxine Sodium (Synthroid) 25 mcg DAILY06 PO 09/02/20 06:00 09/25/20 05:33 Divalproex Sodium (Depakote Er) 125 mg DAILY PO 09/02/20 09:00 Cancel Sertraline HCl (Zoloft) 75 mg DAILY PO 09/03/20 09:00 09/05/20 11:00 DC 09/05/20 07:45 Sertraline HCl (Zoloft) 100 mg DAILY PO 09/06/20 09:00 09/12/20 18:22 DC 09/12/20 10:10 Divalproex Sodium (Depakote Sprinkles) 125 mg DAILY PO 09/03/20 09:00 09/04/20 17:23 DC 09/04/20 10:52 Divalproex Sodium (Depakote Sprinkles) 250 mg DAILY PO 09/05/20 09:00 09/25/20 09:00 Bumetanide (Bumex) 2 mg DAILY PO 09/09/20 09:00 09/25/20 09:00 Potassium Chloride (Klor-Con) 20 meq TID PO 09/08/20 14:00 09/25/20 19:37 Bumetanide (Bumex) 1 mg 1X ONCE PO 09/08/20 14:00 09/08/20 14:01 DC 09/08/20 14:00 Bupropion HCl (Wellbutrin Xl) 150 mg DAILY PO 09/13/20 09:00 09/25/20 09:00 Risperidone (RisperDAL) 0.5 mg QHS PO 09/15/20 21:00 09/22/20 04:20 DC 09/21/20 19:33 Clozapine (Clozaril) 25 mg HS PO 09/22/20 21:00 09/25/20 19:38 I have reviewed the current psychotropics carefully including drug interactions. Risk benefit ratio favors no change other than as noted in my dictated progress note. Diagnosis: Problems: (1) Anxiety disorder (2) Impulse control disorder (3) Lewy body dementia with behavioral disturbance (4) Dementia, vascular, with delusions (5) Dementia in Alzheimer's disease with delusions (6) Major neurocognitive disorder (7) Major depressive disorder with psychotic features CAMERON ROSAS MD Sep 25, 2020 21:14
[2020-09-26] MEDS: LEVOTHYROXINE 25 MCG TABLET. PO SCH (05:28)
[2020-09-26 05:48] VITALS: BP 132/80
--- NOTE | 2020-09-26 07:39 | PDOC ---
Exam Note: Michael Note: This note is a late entry for 09/25/2020 covers elements not covered in my initial note. Subjective: The patient was seen face to face in the evening of 09/25/2020 with Dago BRASHER, discussed and reviewed the chart. He slept 8-3/4 hours previous night. Overall the patient is doing better. He is little more animated with facial expression. Review of Systems: Ambulation impaired due to Parkinsons disease. No CV, , pulmonary, eye system symptoms on review. Mental Status Exam: The patient is oriented to himself and situation. Speech moderate latency. Often response is monosyllabic. Abstraction is fair. Computation is impaired. Language function is intact. Mood and affect somewhat withdrawn. Laboratory Data: Reviewed. Impression: Major depressive disorder rule out psychotic features. Lewy body dementia early with delusion, depression. Anxiety disorder unspecified. Impulse control disorder unspecified. Plan: No change from initial note. Assessment: Vital Signs/I&O: Vital Signs Date Time Temp Pulse Resp B/P (MAP) Pulse Ox O2 Delivery O2 Flow Rate FiO2 09/26/20 05:48 96.9 63 16 132/80 (97) 97 09/25/20 19:54 Room Air I & O 09/25/20 09/25/20 09/26/20 15:00 23:00 07:00 Intake Total 1240 ml 600 ml Balance 1240 ml 600 ml Current Medications: Meds: Current Medications Medications (Trade) Dose Ordered Sig/Gloria Route PRN Reason Start Time Stop Time Status Last Admin Dose Admin Acetaminophen (Tylenol) 500 mg HS PO 09/01/20 21:00 09/25/20 19:37 Apixaban (Eliquis) 5 mg BID PO 09/01/20 21:00 09/25/20 19:37 Bumetanide (Bumex) 1 mg DAILY PO 09/02/20 09:00 09/08/20 12:01 DC 09/08/20 08:01 Carbidopa/Levodopa (Sinemet 10/100) 0.5 tab [id number] PO 09/01/20 17:00 09/25/20 19:39 Diclofenac Sodium (Voltaren) 1 camilla PRN BID PRN TP MUSCLE PAIN 09/01/20 15:30 Divalproex Sodium (Depakote Sprinkles) 125 mg DAILY PO 09/02/20 09:00 09/02/20 09:00 DC 09/02/20 08:22 Divalproex Sodium (Depakote Er) 500 mg QHS PO 09/01/20 21:00 09/25/20 19:38 Docusate Sodium (Colace) 100 mg DAILY PO 09/02/20 09:00 09/25/20 09:00 Gabapentin (Neurontin) 300 mg HS PO 09/01/20 21:00 09/25/20 19:38 Ibuprofen (Motrin) 400 mg PRN Q8HRS PRN PO PAIN 09/01/20 15:30 UNV Levothyroxine Sodium (Synthroid) 25 mcg DAILYAC PO 09/02/20 07:30 09/01/20 19:50 DC Magnesium Hydroxide (Milk Of Magnesia) 2,400 mg PRN QHS PRN PO CONSTIPATION, 2ND CHOICE 09/01/20 15:30 09/04/20 05:12 Memantine (Namenda) 10 mg [id number] PO 09/01/20 16:30 09/25/20 17:29 Metoprolol Succinate (Toprol Xl) 12.5 mg BID PO 09/01/20 21:00 09/25/20 19:56 Olanzapine (ZyPREXA ZYDIS) 5 mg PRN Q12HR PRN PO ANXIETY / AGITATION 09/01/20 15:30 09/20/20 20:10 Polyethylene Glycol (miraLAX) 17 gm DAILY PO 09/02/20 09:00 09/25/20 09:00 Polyethylene Glycol (miraLAX) 17 gm PRN DAILY PRN PO CONSTIPATION, 1ST CHOICE 09/01/20 15:30 Potassium Chloride (Klor-Con) 20 meq BID PO 09/01/20 21:00 09/08/20 12:01 DC 09/08/20 08:01 Risperidone (RisperDAL) 0.5 mg TID PO 09/01/20 21:00 09/14/20 17:54 DC 09/14/20 06:05 Rivastigmine (Exelon 13.3mg) 1 patch DAILY TD 09/02/20 09:00 09/25/20 09:00 Senna/Docusate Sodium (Senna Plus) 1 tab DAILY PO 09/02/20 09:00 09/25/20 09:00 Sertraline HCl (Zoloft) 50 mg DAILY PO 09/02/20 09:00 09/02/20 16:48 DC 09/02/20 08:22 Tamsulosin HCl (Flomax) 0.4 mg DAILY PO 09/02/20 09:00 09/25/20 09:00 Ascorbic Acid (Vitamin C) 500 mg DAILY PO 09/02/20 09:00 09/25/20 09:00 Atorvastatin Calcium (Lipitor) 40 mg QHS PO 09/01/20 21:00 09/25/20 19:37 Non-Formulary Medication (Capsaicin/ Menthol (Salonpas Gel-Patch Hot)) 1 each HS TP 09/01/20 21:00 UNV Chlorhexidine Gluconate (Peridex) 15 ml BID SWSP 09/01/20 21:00 09/25/20 19:37 Multi-Ingred Cream/Lotion/Oil/ Oint (Hydrocerin) 1 camilla PRN BID PRN TP dry skin 09/01/20 16:45 Melatonin (Melatonin) 3 mg HS PO 09/01/20 21:00 09/25/20 19:37 Non-Formulary Medication (Menthol (Biofreeze)) 1 camilla PRN TID PRN TOP MUSCLE PAIN 09/01/20 15:30 UNV Cyclobenzaprine HCl (Flexeril) 10 mg PRN TID PRN PO low back pain 09/01/20 17:00 09/16/20 19:50 Oxybutynin Chloride (Ditropan) 5 mg BID PO 09/01/20 21:00 09/25/20 19:37 Timolol Maleate (Timoptic 0.5% Oph) 1 drop BID OU 09/01/20 21:00 09/25/20 19:37 Multi-Ingredient Ointment (Analgesic [place]) 1 camilla PRN QID PRN TP MUSCLE PAIN 09/01/20 16:15 Cancel Al Hydroxide/Mg Hydroxide (Mylanta Plus Xs) 15 ml PRN AFTMEALHC PRN PO DYSPEPSIA 09/01/20 16:15 Levothyroxine Sodium (Synthroid) 25 mcg DAILY06 PO 09/02/20 06:00 09/26/20 05:28 Divalproex Sodium (Depakote Er) 125 mg DAILY PO 09/02/20 09:00 Cancel Sertraline HCl (Zoloft) 75 mg DAILY PO 09/03/20 09:00 09/05/20 11:00 DC 09/05/20 07:45 Sertraline HCl (Zoloft) 100 mg DAILY PO 09/06/20 09:00 09/12/20 18:22 DC 09/12/20 10:10 Divalproex Sodium (Depakote Sprinkles) 125 mg DAILY PO 09/03/20 09:00 09/04/20 17:23 DC 09/04/20 10:52 Divalproex Sodium (Depakote Sprinkles) 250 mg DAILY PO 09/05/20 09:00 09/25/20 09:00 Bumetanide (Bumex) 2 mg DAILY PO 09/09/20 09:00 09/25/20 09:00 Potassium Chloride (Klor-Con) 20 meq TID PO 09/08/20 14:00 09/25/20 19:37 Bumetanide (Bumex) 1 mg 1X ONCE PO 09/08/20 14:00 09/08/20 14:01 DC 09/08/20 14:00 Bupropion HCl (Wellbutrin Xl) 150 mg DAILY PO 09/13/20 09:00 09/25/20 09:00 Risperidone (RisperDAL) 0.5 mg QHS PO 09/15/20 21:00 09/22/20 04:20 DC 09/21/20 19:33 Clozapine (Clozaril) 25 mg HS PO 09/22/20 21:00 09/25/20 19:38 I have reviewed the current psychotropics carefully including drug interactions. Risk benefit ratio favors no change other than as noted in my dictated progress note. Diagnosis: Problems: (1) Anxiety disorder (2) Impulse control disorder (3) Lewy body dementia with behavioral disturbance (4) Dementia, vascular, with delusions (5) Dementia in Alzheimer's disease with delusions (6) Major neurocognitive disorder CAMERON ROSAS MD Sep 26, 2020 07:39
[2020-09-26] MEDS: POLYETHYLENE GLYCOL 3350 17 GM PACKET. PO SCH (08:51)
[2020-09-26] MEDS: buPROPion XL 150 MG TAB.ER.24H PO SCH (08:52)
[2020-09-26] MEDS: RIVASTIGMINE 13.3MG PATCH. TD SCH (08:52)
[2020-09-26] MEDS: DOCUSATE SODIUM 100 MG CAPSULE PO SCH (08:52)
[2020-09-26] MEDS: METOPROLOL SUCC 24HR ER 25 MG TAB.ER.24H. PO SCH ×2 (08:52→20:23)
[2020-09-26] MEDS: CARBIDOPA/LEVODOPA 10/100MG TABLET PO SCH ×4 (08:53→20:20)
[2020-09-26] MEDS: DIVALPROEX 125 MG CAP.SPRINK PO SCH (08:53)
[2020-09-26] MEDS: MEMANTINE 10 MG TABLET. PO SCH ×2 (08:54→16:52)
[2020-09-26] MEDS: POTASSIUM CHLORIDE 20 MEQ TABLET.ER. PO SCH ×3 (08:54→20:21)
[2020-09-26] MEDS: APIXABAN 5 MG TABLET. PO SCH ×2 (08:55→20:21)
[2020-09-26] MEDS: TAMSULOSIN 0.4 MG CAP.ER.24H. PO SCH (08:55)
[2020-09-26] MEDS: SENNOSIDES/DOCUSATE 8.6/50MG TABLET. PO SCH (08:55)
[2020-09-26] MEDS: ASCORBIC ACID 500 MG TABLET PO SCH (08:55)
[2020-09-26] MEDS: CHLORHEXIDINE 0.12% 15 ML MOUTHWASH. SWSP SCH ×2 (08:55→20:22)
[2020-09-26] MEDS: OXYBUTYNIN CHLORIDE 5 MG TABLET PO SCH ×2 (08:55→20:20)
[2020-09-26] MEDS: BUMETANIDE 1 MG TABLET PO SCH (08:55)
[2020-09-26] MEDS: TIMOLOL 0.5% OPHTH SOLUTION 5ML BOTTLE. OU SCH ×2 (08:56→20:22)
[2020-09-26 16:48] VITALS: BP 102/64
[2020-09-26] MEDS: ATORVASTATIN CALCIUM 20 MG TABLET PO SCH (20:20)
[2020-09-26] MEDS: MELATONIN 3 MG TABLET PO SCH (20:20)
[2020-09-26] MEDS: cloZAPine 25 MG TABLET PO SCH (20:21)
[2020-09-26] MEDS: ACETAMINOPHEN 500 MG TABLET PO SCH (20:21)
[2020-09-26] MEDS: GABAPENTIN 300 MG CAPSULE. PO SCH (20:22)
[2020-09-26] MEDS: DIVALPROEX ER 500 MG TAB.ER.24H PO SCH (20:22)
--- NOTE | 2020-09-26 21:05 | PDOC ---
Exam Note: Michael Note: Please also refer to the separate dictated note~for this date of service dictated separately.~Patient seen individually. Discussed the patient with Nursing staff reviewed the chart.~Reviewed interim history and current functioning. Reviewed vital signs,~Labs/ Radiology~and current medications noted below. Continue current treatment with the changes noted in the dictated addendum note Assessment: Vital Signs/I&O: Vital Signs Date Time Temp Pulse Resp B/P (MAP) Pulse Ox O2 Delivery O2 Flow Rate FiO2 09/26/20 20:23 66 102/64 09/26/20 16:48 98.1 18 95 09/25/20 19:54 Room Air I & O 09/25/20 09/25/20 09/26/20 15:00 23:00 07:00 Intake Total 1240 ml 600 ml Balance 1240 ml 600 ml Current Medications: Meds: Current Medications Medications (Trade) Dose Ordered Sig/Gloria Route PRN Reason Start Time Stop Time Status Last Admin Dose Admin Acetaminophen (Tylenol) 500 mg HS PO 09/01/20 21:00 09/26/20 20:21 Apixaban (Eliquis) 5 mg BID PO 09/01/20 21:00 09/26/20 20:21 Bumetanide (Bumex) 1 mg DAILY PO 09/02/20 09:00 09/08/20 12:01 DC 09/08/20 08:01 Carbidopa/Levodopa (Sinemet 10/100) 0.5 tab [id number] PO 09/01/20 17:00 09/26/20 20:20 Diclofenac Sodium (Voltaren) 1 camilla PRN BID PRN TP MUSCLE PAIN 09/01/20 15:30 Divalproex Sodium (Depakote Sprinkles) 125 mg DAILY PO 09/02/20 09:00 09/02/20 09:00 DC 09/02/20 08:22 Divalproex Sodium (Depakote Er) 500 mg QHS PO 09/01/20 21:00 09/26/20 20:22 Docusate Sodium (Colace) 100 mg DAILY PO 09/02/20 09:00 09/26/20 08:52 Gabapentin (Neurontin) 300 mg HS PO 09/01/20 21:00 09/26/20 20:22 Ibuprofen (Motrin) 400 mg PRN Q8HRS PRN PO PAIN 09/01/20 15:30 UNV Levothyroxine Sodium (Synthroid) 25 mcg DAILYAC PO 09/02/20 07:30 09/01/20 19:50 DC Magnesium Hydroxide (Milk Of Magnesia) 2,400 mg PRN QHS PRN PO CONSTIPATION, 2ND CHOICE 09/01/20 15:30 09/04/20 05:12 Memantine (Namenda) 10 mg [id number] PO 09/01/20 16:30 09/26/20 16:52 Metoprolol Succinate (Toprol Xl) 12.5 mg BID PO 09/01/20 21:00 09/26/20 08:52 Olanzapine (ZyPREXA ZYDIS) 5 mg PRN Q12HR PRN PO ANXIETY / AGITATION 09/01/20 15:30 09/20/20 20:10 Polyethylene Glycol (miraLAX) 17 gm DAILY PO 09/02/20 09:00 09/26/20 08:51 Polyethylene Glycol (miraLAX) 17 gm PRN DAILY PRN PO CONSTIPATION, 1ST CHOICE 09/01/20 15:30 Potassium Chloride (Klor-Con) 20 meq BID PO 09/01/20 21:00 09/08/20 12:01 DC 09/08/20 08:01 Risperidone (RisperDAL) 0.5 mg TID PO 09/01/20 21:00 09/14/20 17:54 DC 09/14/20 06:05 Rivastigmine (Exelon 13.3mg) 1 patch DAILY TD 09/02/20 09:00 09/26/20 08:52 Senna/Docusate Sodium (Senna Plus) 1 tab DAILY PO 09/02/20 09:00 09/26/20 08:55 Sertraline HCl (Zoloft) 50 mg DAILY PO 09/02/20 09:00 09/02/20 16:48 DC 09/02/20 08:22 Tamsulosin HCl (Flomax) 0.4 mg DAILY PO 09/02/20 09:00 09/26/20 08:55 Ascorbic Acid (Vitamin C) 500 mg DAILY PO 09/02/20 09:00 09/26/20 08:55 Atorvastatin Calcium (Lipitor) 40 mg QHS PO 09/01/20 21:00 09/26/20 20:20 Non-Formulary Medication (Capsaicin/ Menthol (Salonpas Gel-Patch Hot)) 1 each HS TP 09/01/20 21:00 UNV Chlorhexidine Gluconate (Peridex) 15 ml BID SWSP 09/01/20 21:00 09/26/20 20:22 Multi-Ingred Cream/Lotion/Oil/ Oint (Hydrocerin) 1 camilla PRN BID PRN TP dry skin 09/01/20 16:45 Melatonin (Melatonin) 3 mg HS PO 09/01/20 21:00 09/26/20 20:20 Non-Formulary Medication (Menthol (Biofreeze)) 1 camilla PRN TID PRN TOP MUSCLE PAIN 09/01/20 15:30 UNV Cyclobenzaprine HCl (Flexeril) 10 mg PRN TID PRN PO low back pain 09/01/20 17:00 09/16/20 19:50 Oxybutynin Chloride (Ditropan) 5 mg BID PO 09/01/20 21:00 09/26/20 20:20 Timolol Maleate (Timoptic 0.5% Ophth) 1 drop BID OU 09/01/20 21:00 09/26/20 20:22 Multi-Ingredient Ointment (Analgesic [place]) 1 camilla PRN QID PRN TP MUSCLE PAIN 09/01/20 16:15 Cancel Al Hydroxide/Mg Hydroxide (Mylanta Plus Xs) 15 ml PRN AFTMEALHC PRN PO DYSPEPSIA 09/01/20 16:15 Levothyroxine Sodium (Synthroid) 25 mcg DAILY06 PO 09/02/20 06:00 09/26/20 05:28 Divalproex Sodium (Depakote Er) 125 mg DAILY PO 09/02/20 09:00 Cancel Sertraline HCl (Zoloft) 75 mg DAILY PO 09/03/20 09:00 09/05/20 11:00 DC 09/05/20 07:45 Sertraline HCl (Zoloft) 100 mg DAILY PO 09/06/20 09:00 09/12/20 18:22 DC 09/12/20 10:10 Divalproex Sodium (Depakote Sprinkles) 125 mg DAILY PO 09/03/20 09:00 09/04/20 17:23 DC 09/04/20 10:52 Divalproex Sodium (Depakote Sprinkles) 250 mg DAILY PO 09/05/20 09:00 09/26/20 08:53 Bumetanide (Bumex) 2 mg DAILY PO 09/09/20 09:00 09/26/20 08:55 Potassium Chloride (Klor-Con) 20 meq TID PO 09/08/20 14:00 09/26/20 20:21 Bumetanide (Bumex) 1 mg 1X ONCE PO 09/08/20 14:00 09/08/20 14:01 DC 09/08/20 14:00 Bupropion HCl (Wellbutrin Xl) 150 mg DAILY PO 09/13/20 09:00 09/26/20 08:52 Risperidone (RisperDAL) 0.5 mg QHS PO 09/15/20 21:00 09/22/20 04:20 DC 09/21/20 19:33 Clozapine (Clozaril) 25 mg HS PO 09/22/20 21:00 09/26/20 20:21 I have reviewed the current psychotropics carefully including drug interactions. Risk benefit ratio favors no change other than as noted in my dictated progress note. Diagnosis: Problems: (1) Anxiety disorder (2) Impulse control disorder (3) Lewy body dementia with behavioral disturbance (4) Dementia, vascular, with delusions (5) Dementia in Alzheimer's disease with delusions (6) Major neurocognitive disorder (7) Major depressive disorder with psychotic features CAMERON ROSAS MD Sep 26, 2020 21:05
[2020-09-27] MEDS: LEVOTHYROXINE 25 MCG TABLET. PO SCH (05:00)
[2020-09-27 06:13] VITALS: BP 132/81
--- NOTE | 2020-09-27 08:01 | PDOC ---
Exam Note: Michael Note: This note is a late entry for 09/26/2020 covers elements not covered in my initial note. Subjective: The patient was seen face to face in the evening of 09/26/2020 with Dago BRASHER, discussed and reviewed the chart. He slept 8 hours previous night. Overall the patient has done better during the day till about 5 p.m., then he was anxious, restless due to overstimulation on the unit. He grabbed the finger of one of the other elderly patients but redirected. He is not aggressive. Review of Systems: Ambulation impaired due to Parkinsons disease. No CV, , pulmonary, eye system symptoms on review. Mental Status Exam: The patient is oriented to himself and situation. I met with him in his room. Eye constant is poor. Psychomotor activity reduced. Speech moderate latency. Often response is monosyllabic. No suicidal or homicidal ideation. He states he occasionally has some hallucinations and I questioned him at length. Laboratory Data: Reviewed. Impression: Major depressive disorder rule out psychotic features. Lewy body dementia early with delusion, depression. Anxiety disorder unspecified. Impulse control disorder unspecified. Plan: Increase Clozaril from 25 mg h.s. to 37.5 mg h.s. given his psychotic symptoms even though they are in the evening. Rest unchanged. Assessment: Vital Signs/I&O: Vital Signs Date Time Temp Pulse Resp B/P (MAP) Pulse Ox O2 Delivery O2 Flow Rate FiO2 09/27/20 06:13 97.5 61 18 132/81 (98) 96 09/25/20 19:54 Room Air I & O 09/26/20 09/26/20 09/27/20 15:00 23:00 07:00 Intake Total 120 ml 520 ml Balance 120 ml 520 ml Labs: Laboratory Tests Test 09/26/20 10:19 Coronavirus (PCR) Not detected (Not Detected) Current Medications: Meds: Laboratory Tests Test 09/26/20 10: Coronavirus (PCR) Not detected Current Medications Medications (Trade) Dose Ordered Sig/Gloria Route PRN Reason Start Time Stop Time Status Last Admin Dose Admin Acetaminophen (Tylenol) 500 mg HS PO 09/01/20 21:00 09/26/20 20:21 Apixaban (Eliquis) 5 mg BID PO 09/01/20 21:00 09/26/20 20:21 Bumetanide (Bumex) 1 mg DAILY PO 09/02/20 09:00 09/08/20 12:01 DC 09/08/20 08:01 Carbidopa/Levodopa (Sinemet 10/100) 0.5 tab [id number] PO 09/01/20 17:00 09/26/20 20:20 Diclofenac Sodium (Voltaren) 1 camilla PRN BID PRN TP MUSCLE PAIN 09/01/20 15:30 Divalproex Sodium (Depakote Sprinkles) 125 mg DAILY PO 09/02/20 09:00 09/02/20 09:00 DC 09/02/20 08:22 Divalproex Sodium (Depakote Er) 500 mg QHS PO 09/01/20 21:00 09/26/20 20:22 Docusate Sodium (Colace) 100 mg DAILY PO 09/02/20 09:00 09/26/20 08:52 Gabapentin (Neurontin) 300 mg HS PO 09/01/20 21:00 09/26/20 20:22 Ibuprofen (Motrin) 400 mg PRN Q8HRS PRN PO PAIN 09/01/20 15:30 UNV Levothyroxine Sodium (Synthroid) 25 mcg DAILYAC PO 09/02/20 07:30 09/01/20 19:50 DC Magnesium Hydroxide (Milk Of Magnesia) 2,400 mg PRN QHS PRN PO CONSTIPATION, 2ND CHOICE 09/01/20 15:30 09/04/20 05:12 Memantine (Namenda) 10 mg [id number] PO 09/01/20 16:30 09/26/20 16:52 Metoprolol Succinate (Toprol Xl) 12.5 mg BID PO 09/01/20 21:00 09/26/20 08:52 Olanzapine (ZyPREXA ZYDIS) 5 mg PRN Q12HR PRN PO ANXIETY / AGITATION 09/01/20 15:30 09/20/20 20:10 Polyethylene Glycol (miraLAX) 17 gm DAILY PO 09/02/20 09:00 09/26/20 08:51 Polyethylene Glycol (miraLAX) 17 gm PRN DAILY PRN PO CONSTIPATION, 1ST CHOICE 09/01/20 15:30 Potassium Chloride (Klor-Con) 20 meq BID PO 09/01/20 21:00 09/08/20 12:01 DC 09/08/20 08:01 Risperidone (RisperDAL) 0.5 mg TID PO 09/01/20 21:00 09/14/20 17:54 DC 09/14/20 06:05 Rivastigmine (Exelon 13.3mg) 1 patch DAILY TD 09/02/20 09:00 09/26/20 08:52 Senna/Docusate Sodium (Senna Plus) 1 tab DAILY PO 09/02/20 09:00 09/26/20 08:55 Sertraline HCl (Zoloft) 50 mg DAILY PO 09/02/20 09:00 09/02/20 16:48 DC 09/02/20 08:22 Tamsulosin HCl (Flomax) 0.4 mg DAILY PO 09/02/20 09:00 09/26/20 08:55 Ascorbic Acid (Vitamin C) 500 mg DAILY PO 09/02/20 09:00 09/26/20 08:55 Atorvastatin Calcium (Lipitor) 40 mg QHS PO 09/01/20 21:00 09/26/20 20:20 Non-Formulary Medication (Capsaicin/ Menthol (Salonpas Gel-Patch Hot)) 1 each HS TP 09/01/20 21:00 UNV Chlorhexidine Gluconate (Peridex) 15 ml BID SWSP 09/01/20 21:00 09/26/20 20:22 Multi-Ingred Cream/Lotion/Oil/ Oint (Hydrocerin) 1 camilla PRN BID PRN TP dry skin 09/01/20 16:45 Melatonin (Melatonin) 3 mg HS PO 09/01/20 21:00 09/26/20 20:20 Non-Formulary Medication (Menthol (Biofreeze)) 1 camilla PRN TID PRN TOP MUSCLE PAIN 09/01/20 15:30 UNV Cyclobenzaprine HCl (Flexeril) 10 mg PRN TID PRN PO low back pain 09/01/20 17:00 09/16/20 19:50 Oxybutynin Chloride (Ditropan) 5 mg BID PO 09/01/20 21:00 09/26/20 20:20 Timolol Maleate (Timoptic 0.5% Oph) 1 drop BID OU 09/01/20 21:00 09/26/20 20:22 Multi-Ingredient Ointment (Analgesic [place]) 1 camilla PRN QID PRN TP MUSCLE PAIN 09/01/20 16:15 Cancel Al Hydroxide/Mg Hydroxide (Mylanta Plus Xs) 15 ml PRN AFTMEALHC PRN PO DYSPEPSIA 09/01/20 16:15 Levothyroxine Sodium (Synthroid) 25 mcg DAILY06 PO 09/02/20 06:00 09/27/20 05:00 Divalproex Sodium (Depakote Er) 125 mg DAILY PO 09/02/20 09:00 Cancel Sertraline HCl (Zoloft) 75 mg DAILY PO 09/03/20 09:00 09/05/20 11:00 DC 09/05/20 07:45 Sertraline HCl (Zoloft) 100 mg DAILY PO 09/06/20 09:00 09/12/20 18:22 DC 09/12/20 10:10 Divalproex Sodium (Depakote Sprinkles) 125 mg DAILY PO 09/03/20 09:00 09/04/20 17:23 DC 09/04/20 10:52 Divalproex Sodium (Depakote Sprinkles) 250 mg DAILY PO 09/05/20 09:00 09/26/20 08:53 Bumetanide (Bumex) 2 mg DAILY PO 09/09/20 09:00 09/26/20 08:55 Potassium Chloride (Klor-Con) 20 meq TID PO 09/08/20 14:00 09/26/20 20:21 Bumetanide (Bumex) 1 mg 1X ONCE PO 09/08/20 14:00 09/08/20 14:01 DC 09/08/20 14:00 Bupropion HCl (Wellbutrin Xl) 150 mg DAILY PO 09/13/20 09:00 09/26/20 08:52 Risperidone (RisperDAL) 0.5 mg QHS PO 09/15/20 21:00 09/22/20 04:20 DC 09/21/20 19:33 Clozapine (Clozaril) 25 mg HS PO 09/22/20 21:00 09/27/20 00:24 DC 09/26/20 20:21 Clozapine (Clozaril) 37.5 mg HS PO 2/18/21 21:00 I have reviewed the current psychotropics carefully including drug interactions. Risk benefit ratio favors no change other than as noted in my dictated progress note. Diagnosis: Problems: (1) Anxiety disorder (2) Impulse control disorder (3) Lewy body dementia with behavioral disturbance (4) Dementia, vascular, with delusions (5) Dementia in Alzheimer's disease with delusions (6) Major neurocognitive disorder (7) Major depressive disorder with psychotic features CAMERON ROSAS MD Sep 27, 2020 08:01
[2020-09-27] MEDS: TIMOLOL 0.5% OPHTH SOLUTION 5ML BOTTLE. OU SCH ×2 (08:42→19:57)
[2020-09-27] MEDS: CARBIDOPA/LEVODOPA 10/100MG TABLET PO SCH ×4 (08:42→19:58)
[2020-09-27] MEDS: POLYETHYLENE GLYCOL 3350 17 GM PACKET. PO SCH (08:42)
[2020-09-27] MEDS: CHLORHEXIDINE 0.12% 15 ML MOUTHWASH. SWSP SCH ×2 (08:42→19:57)
[2020-09-27] MEDS: buPROPion XL 150 MG TAB.ER.24H PO SCH (08:43)
[2020-09-27] MEDS: SENNOSIDES/DOCUSATE 8.6/50MG TABLET. PO SCH (08:44)
[2020-09-27] MEDS: TAMSULOSIN 0.4 MG CAP.ER.24H. PO SCH (08:44)
[2020-09-27] MEDS: DOCUSATE SODIUM 100 MG CAPSULE PO SCH (08:44)
[2020-09-27] MEDS: APIXABAN 5 MG TABLET. PO SCH ×2 (08:44→19:58)
[2020-09-27] MEDS: MEMANTINE 10 MG TABLET. PO SCH ×2 (08:44→17:03)
[2020-09-27] MEDS: DIVALPROEX 125 MG CAP.SPRINK PO SCH (08:44)
[2020-09-27] MEDS: POTASSIUM CHLORIDE 20 MEQ TABLET.ER. PO SCH ×3 (08:44→19:58)
[2020-09-27] MEDS: ASCORBIC ACID 500 MG TABLET PO SCH (08:44)
[2020-09-27] MEDS: OXYBUTYNIN CHLORIDE 5 MG TABLET PO SCH ×2 (08:44→19:58)
[2020-09-27] MEDS: METOPROLOL SUCC 24HR ER 25 MG TAB.ER.24H. PO SCH ×2 (08:45→19:57)
[2020-09-27] MEDS: RIVASTIGMINE 13.3MG PATCH. TD SCH (08:45)
[2020-09-27] MEDS: BUMETANIDE 1 MG TABLET PO SCH (08:46)
[2020-09-27 16:07] VITALS: BP 110/72
[2020-09-27] MEDS: MELATONIN 3 MG TABLET PO SCH (19:57)
[2020-09-27] MEDS: ACETAMINOPHEN 500 MG TABLET PO SCH (19:57)
[2020-09-27] MEDS: GABAPENTIN 300 MG CAPSULE. PO SCH (19:58)
[2020-09-27] MEDS: ATORVASTATIN CALCIUM 20 MG TABLET PO SCH (19:58)
[2020-09-27] MEDS: DIVALPROEX ER 500 MG TAB.ER.24H PO SCH (19:59)
[2020-09-27] MEDS ORDERED: cloZAPine 25 MG TABLET PO SCH (21:00)
--- NOTE | 2020-09-27 21:04 | PDOC ---
Exam Note: Michael Note: Please also refer to the separate dictated note~for this date of service dictated separately.~Patient seen individually. Discussed the patient with Nursing staff reviewed the chart.~Reviewed interim history and current functioning. Reviewed vital signs,~Labs/ Radiology~and current medications noted below. Continue current treatment with the changes noted in the dictated addendum note Assessment: Vital Signs/I&O: Vital Signs Date Time Temp Pulse Resp B/P (MAP) Pulse Ox O2 Delivery O2 Flow Rate FiO2 09/27/20 19:57 72 110/72 09/27/20 16:07 98.5 16 98 09/25/20 19:54 Room Air I & O 09/26/20 09/26/20 09/27/20 15:00 23:00 07:00 Intake Total 120 ml 520 ml Balance 120 ml 520 ml Current Medications: Meds: Current Medications Medications (Trade) Dose Ordered Sig/Gloria Route PRN Reason Start Time Stop Time Status Last Admin Dose Admin Acetaminophen (Tylenol) 500 mg HS PO 09/01/20 21:00 09/27/20 19:57 Apixaban (Eliquis) 5 mg BID PO 09/01/20 21:00 09/27/20 19:58 Bumetanide (Bumex) 1 mg DAILY PO 09/02/20 09:00 09/08/20 12:01 DC 09/08/20 08:01 Carbidopa/Levodopa (Sinemet 10/100) 0.5 tab [id number] PO 09/01/20 17:00 09/27/20 19:58 Diclofenac Sodium (Voltaren) 1 camilla PRN BID PRN TP MUSCLE PAIN 09/01/20 15:30 Divalproex Sodium (Depakote Sprinkles) 125 mg DAILY PO 09/02/20 09:00 09/02/20 09:00 DC 09/02/20 08:22 Divalproex Sodium (Depakote Er) 500 mg QHS PO 09/01/20 21:00 09/27/20 19:59 Docusate Sodium (Colace) 100 mg DAILY PO 09/02/20 09:00 09/27/20 08:44 Gabapentin (Neurontin) 300 mg HS PO 09/01/20 21:00 09/27/20 19:58 Ibuprofen (Motrin) 400 mg PRN Q8HRS PRN PO PAIN 09/01/20 15:30 UNV Levothyroxine Sodium (Synthroid) 25 mcg DAILYAC PO 09/02/20 07:30 09/01/20 19:50 DC Magnesium Hydroxide (Milk Of Magnesia) 2,400 mg PRN QHS PRN PO CONSTIPATION, 2ND CHOICE 09/01/20 15:30 09/04/20 05:12 Memantine (Namenda) 10 mg [id number] PO 09/01/20 16:30 09/27/20 17:03 Metoprolol Succinate (Toprol Xl) 12.5 mg BID PO 09/01/20 21:00 09/27/20 19:57 Olanzapine (ZyPREXA ZYDIS) 5 mg PRN Q12HR PRN PO ANXIETY / AGITATION 09/01/20 15:30 09/20/20 20:10 Polyethylene Glycol (miraLAX) 17 gm DAILY PO 09/02/20 09:00 09/27/20 08:42 Polyethylene Glycol (miraLAX) 17 gm PRN DAILY PRN PO CONSTIPATION, 1ST CHOICE 09/01/20 15:30 Potassium Chloride (Klor-Con) 20 meq BID PO 09/01/20 21:00 09/08/20 12:01 DC 09/08/20 08:01 Risperidone (RisperDAL) 0.5 mg TID PO 09/01/20 21:00 09/14/20 17:54 DC 09/14/20 06:05 Rivastigmine (Exelon 13.3mg) 1 patch DAILY TD 09/02/20 09:00 09/27/20 08:45 Senna/Docusate Sodium (Senna Plus) 1 tab DAILY PO 09/02/20 09:00 09/27/20 08:44 Sertraline HCl (Zoloft) 50 mg DAILY PO 09/02/20 09:00 09/02/20 16:48 DC 09/02/20 08:22 Tamsulosin HCl (Flomax) 0.4 mg DAILY PO 09/02/20 09:00 09/27/20 08:44 Ascorbic Acid (Vitamin C) 500 mg DAILY PO 09/02/20 09:00 09/27/20 08:44 Atorvastatin Calcium (Lipitor) 40 mg QHS PO 09/01/20 21:00 09/27/20 19:58 Non-Formulary Medication (Capsaicin/ Menthol (Salonpas Gel-Patch Hot)) 1 each HS TP 09/01/20 21:00 UNV Chlorhexidine Gluconate (Peridex) 15 ml BID SWSP 09/01/20 21:00 09/27/20 19:57 Multi-Ingred Cream/Lotion/Oil/ Oint (Hydrocerin) 1 camilla PRN BID PRN TP dry skin 09/01/20 16:45 Melatonin (Melatonin) 3 mg HS PO 09/01/20 21:00 09/27/20 19:57 Non-Formulary Medication (Menthol (Biofreeze)) 1 camilla PRN TID PRN TOP MUSCLE PAIN 09/01/20 15:30 UNV Cyclobenzaprine HCl (Flexeril) 10 mg PRN TID PRN PO low back pain 09/01/20 17:00 09/16/20 19:50 Oxybutynin Chloride (Ditropan) 5 mg BID PO 09/01/20 21:00 09/27/20 19:58 Timolol Maleate (Timoptic 0.5% Oph) 1 drop BID OU 09/01/20 21:00 09/27/20 19:57 Multi-Ingredient Ointment (Analgesic [place]) 1 camilla PRN QID PRN TP MUSCLE PAIN 09/01/20 16:15 Cancel Al Hydroxide/Mg Hydroxide (Mylanta Plus Xs) 15 ml PRN AFTMEALHC PRN PO DYSPEPSIA 09/01/20 16:15 Levothyroxine Sodium (Synthroid) 25 mcg DAILY06 PO 09/02/20 06:00 09/27/20 05:00 Divalproex Sodium (Depakote Er) 125 mg DAILY PO 09/02/20 09:00 Cancel Sertraline HCl (Zoloft) 75 mg DAILY PO 09/03/20 09:00 09/05/20 11:00 DC 09/05/20 07:45 Sertraline HCl (Zoloft) 100 mg DAILY PO 09/06/20 09:00 09/12/20 18:22 DC 09/12/20 10:10 Divalproex Sodium (Depakote Sprinkles) 125 mg DAILY PO 09/03/20 09:00 09/04/20 17:23 DC 09/04/20 10:52 Divalproex Sodium (Depakote Sprinkles) 250 mg DAILY PO 09/05/20 09:00 09/27/20 08:44 Bumetanide (Bumex) 2 mg DAILY PO 09/09/20 09:00 09/27/20 08:46 Potassium Chloride (Klor-Con) 20 meq TID PO 09/08/20 14:00 09/27/20 19:58 Bumetanide (Bumex) 1 mg 1X ONCE PO 09/08/20 14:00 09/08/20 14:01 DC 09/08/20 14:00 Bupropion HCl (Wellbutrin Xl) 150 mg DAILY PO 09/13/20 09:00 09/27/20 08:43 Risperidone (RisperDAL) 0.5 mg QHS PO 09/15/20 21:00 09/22/20 04:20 DC 09/21/20 19:33 Clozapine (Clozaril) 25 mg HS PO 09/22/20 21:00 09/27/20 00:24 DC 09/26/20 20:21 Clozapine (Clozaril) 37.5 mg HS PO 09/27/20 21:00 09/27/20 20:00 Current Medications Medications (Trade) Dose Ordered Sig/Gloria Route PRN Reason Start Time Stop Time Status Last Admin Dose Admin Clozapine (Clozaril) 37.5 mg HS PO 09/27/20 21:00 09/27/20 20:00 I have reviewed the current psychotropics carefully including drug interactions. Risk benefit ratio favors no change other than as noted in my dictated progress note. Diagnosis: Problems: (1) Anxiety disorder (2) Impulse control disorder (3) Lewy body dementia with behavioral disturbance (4) Dementia, vascular, with delusions (5) Dementia in Alzheimer's disease with delusions (6) Major neurocognitive disorder (7) Parkinson's disease CAMERON ROSAS MD Sep 27, 2020 21:04
[2020-09-28] MEDS ORDERED: CLOZ25TA PO (00:15)
[2020-09-28] MEDS ORDERED: BUPR150T27 PO (00:20)
[2020-09-28] MEDS ORDERED: MAG-124 PO (00:26)
[2020-09-28 05:42] VITALS: BP 144/84
[2020-09-28] MEDS: LEVOTHYROXINE 25 MCG TABLET. PO SCH (06:00)
--- NOTE | 2020-09-28 08:21 | PDOC ---
Exam Note: Michael Note: This note is a late entry for 09/27/2020 covers elements not covered in my initial note. Subjective: The patient was seen face to face in the evening of 09/27/2020 with Dago BRASHER, discussed and reviewed the chart. He slept 7-1/2 hours previous night. Overall the patient has had a better facial expression. No clear psychotic symptoms noted. Review of Systems: Ambulation impaired consequent to Parkinsons disease. No CV, , pulmonary, eye system symptoms on review. Mental Status Exam: The patient is oriented to himself and situation. I questioned the patient closely about overt psychotic symptoms. He denies this. Speech moderate to marked latency. Often response is monosyllabic. Abstraction is fair. Computation is impaired. Language function is intact. Mood and affect withdrawn. Laboratory Data: Reviewed. Impression: Major depressive disorder rule out psychotic features. Lewy body dementia early with delusion, depression. Anxiety disorder unspecified. Impulse control disorder unspecified. Plan: No change from initial note. Tentative discharge tomorrow. Assessment: Vital Signs/I&O: Vital Signs Date Time Temp Pulse Resp B/P (MAP) Pulse Ox O2 Delivery O2 Flow Rate FiO2 09/28/20 05:42 96.7 61 18 144/84 (104) 98 09/25/20 19:54 Room Air I & O 09/27/20 09/27/20 09/28/20 14:59 22:59 06:59 Intake Total 200 ml 240 ml 120 ml Balance 200 ml 240 ml 120 ml Current Medications: Meds: Current Medications Medications (Trade) Dose Ordered Sig/Gloria Route PRN Reason Start Time Stop Time Status Last Admin Dose Admin Acetaminophen (Tylenol) 500 mg HS PO 09/01/20 21:00 09/27/20 19:57 Apixaban (Eliquis) 5 mg BID PO 09/01/20 21:00 09/27/20 19:58 Bumetanide (Bumex) 1 mg DAILY PO 09/02/20 09:00 09/08/20 12:01 DC 09/08/20 08:01 Carbidopa/Levodopa (Sinemet 10/100) 0.5 tab [id number] PO 09/01/20 17:00 09/27/20 19:58 Diclofenac Sodium (Voltaren) 1 camilla PRN BID PRN TP MUSCLE PAIN 09/01/20 15:30 Divalproex Sodium (Depakote Sprinkles) 125 mg DAILY PO 09/02/20 09:00 09/02/20 09:00 DC 09/02/20 08:22 Divalproex Sodium (Depakote Er) 500 mg QHS PO 09/01/20 21:00 09/27/20 19:59 Docusate Sodium (Colace) 100 mg DAILY PO 09/02/20 09:00 09/27/20 08:44 Gabapentin (Neurontin) 300 mg HS PO 09/01/20 21:00 09/27/20 19:58 Ibuprofen (Motrin) 400 mg PRN Q8HRS PRN PO PAIN 09/01/20 15:30 UNV Levothyroxine Sodium (Synthroid) 25 mcg DAILYAC PO 09/02/20 07:30 09/01/20 19:50 DC Magnesium Hydroxide (Milk Of Magnesia) 2,400 mg PRN QHS PRN PO CONSTIPATION, 2ND CHOICE 09/01/20 15:30 09/04/20 05:12 Memantine (Namenda) 10 mg [id number] PO 09/01/20 16:30 09/27/20 17:03 Metoprolol Succinate (Toprol Xl) 12.5 mg BID PO 09/01/20 21:00 09/27/20 19:57 Olanzapine (ZyPREXA ZYDIS) 5 mg PRN Q12HR PRN PO ANXIETY / AGITATION 09/01/20 15:30 09/20/20 20:10 Polyethylene Glycol (miraLAX) 17 gm DAILY PO 09/02/20 09:00 09/27/20 08:42 Polyethylene Glycol (miraLAX) 17 gm PRN DAILY PRN PO CONSTIPATION, 1ST CHOICE 09/01/20 15:30 Potassium Chloride (Klor-Con) 20 meq BID PO 09/01/20 21:00 09/08/20 12:01 DC 09/08/20 08:01 Risperidone (RisperDAL) 0.5 mg TID PO 09/01/20 21:00 09/14/20 17:54 DC 09/14/20 06:05 Rivastigmine (Exelon 13.3mg) 1 patch DAILY TD 09/02/20 09:00 09/27/20 08:45 Senna/Docusate Sodium (Senna Plus) 1 tab DAILY PO 09/02/20 09:00 09/27/20 08:44 Sertraline HCl (Zoloft) 50 mg DAILY PO 09/02/20 09:00 09/02/20 16:48 DC 09/02/20 08:22 Tamsulosin HCl (Flomax) 0.4 mg DAILY PO 09/02/20 09:00 09/27/20 08:44 Ascorbic Acid (Vitamin C) 500 mg DAILY PO 09/02/20 09:00 09/27/20 08:44 Atorvastatin Calcium (Lipitor) 40 mg QHS PO 09/01/20 21:00 09/27/20 19:58 Non-Formulary Medication (Capsaicin/ Menthol (Salonpas Gel-Patch Hot)) 1 each HS TP 09/01/20 21:00 UNV Chlorhexidine Gluconate (Peridex) 15 ml BID SWSP 09/01/20 21:00 09/27/20 19:57 Multi-Ingred Cream/Lotion/Oil/ Oint (Hydrocerin) 1 camilla PRN BID PRN TP dry skin 09/01/20 16:45 Melatonin (Melatonin) 3 mg HS PO 09/01/20 21:00 09/27/20 19:57 Non-Formulary Medication (Menthol (Biofreeze)) 1 camilla PRN TID PRN TOP MUSCLE PAIN 09/01/20 15:30 UNV Cyclobenzaprine HCl (Flexeril) 10 mg PRN TID PRN PO low back pain 09/01/20 17:00 09/16/20 19:50 Oxybutynin Chloride (Ditropan) 5 mg BID PO 09/01/20 21:00 09/27/20 19:58 Timolol Maleate (Timoptic 0.5% Oph) 1 drop BID OU 09/01/20 21:00 09/27/20 19:57 Multi-Ingredient Ointment (Analgesic [place]) 1 camilla PRN QID PRN TP MUSCLE PAIN 09/01/20 16:15 Cancel Al Hydroxide/Mg Hydroxide (Mylanta Plus Xs) 15 ml PRN AFTMEALHC PRN PO DYSPEPSIA 09/01/20 16:15 Levothyroxine Sodium (Synthroid) 25 mcg DAILY06 PO 09/02/20 06:00 09/28/20 06:00 Divalproex Sodium (Depakote Er) 125 mg DAILY PO 09/02/20 09:00 Cancel Sertraline HCl (Zoloft) 75 mg DAILY PO 09/03/20 09:00 09/05/20 11:00 DC 09/05/20 07:45 Sertraline HCl (Zoloft) 100 mg DAILY PO 09/06/20 09:00 09/12/20 18:22 DC 09/12/20 10:10 Divalproex Sodium (Depakote Sprinkles) 125 mg DAILY PO 09/03/20 09:00 09/04/20 17:23 DC 09/04/20 10:52 Divalproex Sodium (Depakote Sprinkles) 250 mg DAILY PO 09/05/20 09:00 09/27/20 08:44 Bumetanide (Bumex) 2 mg DAILY PO 09/09/20 09:00 09/27/20 08:46 Potassium Chloride (Klor-Con) 20 meq TID PO 09/08/20 14:00 09/27/20 19:58 Bumetanide (Bumex) 1 mg 1X ONCE PO 09/08/20 14:00 09/08/20 14:01 DC 09/08/20 14:00 Bupropion HCl (Wellbutrin Xl) 150 mg DAILY PO 09/13/20 09:00 09/27/20 08:43 Risperidone (RisperDAL) 0.5 mg QHS PO 09/15/20 21:00 09/22/20 04:20 DC 09/21/20 19:33 Clozapine (Clozaril) 25 mg HS PO 09/22/20 21:00 09/27/20 00:24 DC 09/26/20 20:21 Clozapine (Clozaril) 37.5 mg HS PO 09/27/20 21:00 09/27/20 20:00 Current Medications Medications (Trade) Dose Ordered Sig/Gloria Route PRN Reason Start Time Stop Time Status Last Admin Dose Admin Clozapine (Clozaril) 37.5 mg HS PO 09/27/20 21:00 09/27/20 20:00 I have reviewed the current psychotropics carefully including drug interactions. Risk benefit ratio favors no change other than as noted in my dictated progress note. Diagnosis: Problems: (1) Anxiety disorder (2) Impulse control disorder (3) Lewy body dementia with behavioral disturbance (4) Dementia, vascular, with delusions (5) Dementia in Alzheimer's disease with delusions (6) Major neurocognitive disorder (7) Major depressive disorder with psychotic features CAMERON ROSAS MD Sep 28, 2020 08:21
[2020-09-28] MEDS: DIVALPROEX 125 MG CAP.SPRINK PO SCH (08:39)
[2020-09-28] MEDS: RIVASTIGMINE 13.3MG PATCH. TD SCH (08:39)
[2020-09-28] MEDS: buPROPion XL 150 MG TAB.ER.24H PO SCH (08:39)
[2020-09-28] MEDS: OXYBUTYNIN CHLORIDE 5 MG TABLET PO SCH (08:39)
[2020-09-28] MEDS: POLYETHYLENE GLYCOL 3350 17 GM PACKET. PO SCH (08:39)
[2020-09-28] MEDS: TIMOLOL 0.5% OPHTH SOLUTION 5ML BOTTLE. OU SCH (08:39)
[2020-09-28] MEDS: CHLORHEXIDINE 0.12% 15 ML MOUTHWASH. SWSP SCH (08:39)
[2020-09-28 08:40] VITALS: BP 144/84
[2020-09-28] MEDS: POTASSIUM CHLORIDE 20 MEQ TABLET.ER. PO SCH (08:40)
[2020-09-28] MEDS: TAMSULOSIN 0.4 MG CAP.ER.24H. PO SCH (08:40)
[2020-09-28] MEDS: APIXABAN 5 MG TABLET. PO SCH (08:40)
[2020-09-28] MEDS: ASCORBIC ACID 500 MG TABLET PO SCH (08:40)
[2020-09-28] MEDS: DOCUSATE SODIUM 100 MG CAPSULE PO SCH (08:40)
[2020-09-28] MEDS: CARBIDOPA/LEVODOPA 10/100MG TABLET PO SCH (08:40)
[2020-09-28] MEDS: SENNOSIDES/DOCUSATE 8.6/50MG TABLET. PO SCH (08:40)
[2020-09-28] MEDS: METOPROLOL SUCC 24HR ER 25 MG TAB.ER.24H. PO SCH (08:40)
[2020-09-28] MEDS: MEMANTINE 10 MG TABLET. PO SCH (08:41)
[2020-09-28] MEDS: BUMETANIDE 1 MG TABLET PO SCH (08:42)
--- NOTE | 2020-09-28 21:01 | PDOC ---
Exam Note: Michael Note: Please also refer to the separate dictated note~for this date of service dictated separately.~Patient seen individually. Discussed the patient with Nursing staff reviewed the chart.~Reviewed interim history and current functioning. Reviewed vital signs,~Labs/ Radiology~and current medications noted below. Continue current treatment with the changes noted in the dictated addendum note Assessment: Vital Signs/I&O: Vital Signs Date Time Temp Pulse Resp B/P (MAP) Pulse Ox O2 Delivery O2 Flow Rate FiO2 09/28/20 08:40 61 144/84 09/28/20 05:42 96.7 18 98 09/25/20 19:54 Room Air I & O 09/27/20 09/27/20 09/28/20 14:59 22:59 06:59 Intake Total 200 ml 240 ml 120 ml Balance 200 ml 240 ml 120 ml Current Medications: Meds: Current Medications Medications (Trade) Dose Ordered Sig/Gloria Route PRN Reason Start Time Stop Time Status Last Admin Dose Admin Acetaminophen (Tylenol) 500 mg HS PO 09/01/20 21:00 09/28/20 10:49 DC 09/27/20 19:57 Apixaban (Eliquis) 5 mg BID PO 09/01/20 21:00 09/28/20 10:49 DC 09/28/20 08:40 Bumetanide (Bumex) 1 mg DAILY PO 09/02/20 09:00 09/08/20 12:01 DC 09/08/20 08:01 Carbidopa/Levodopa (Sinemet 10/100) 0.5 tab [id number] PO 09/01/20 17:00 09/28/20 10:49 DC 09/28/20 08:40 Diclofenac Sodium (Voltaren) 1 camilla PRN BID PRN TP MUSCLE PAIN 09/01/20 15:30 09/28/20 10:49 DC Divalproex Sodium (Depakote Sprinkles) 125 mg DAILY PO 09/02/20 09:00 09/02/20 09:00 DC 09/02/20 08:22 Divalproex Sodium (Depakote Er) 500 mg QHS PO 09/01/20 21:00 09/28/20 10:49 DC 09/27/20 19:59 Docusate Sodium (Colace) 100 mg DAILY PO 09/02/20 09:00 09/28/20 10:49 DC 09/28/20 08:40 Gabapentin (Neurontin) 300 mg HS PO 09/01/20 21:00 09/28/20 10:49 DC 09/27/20 19:58 Ibuprofen (Motrin) 400 mg PRN Q8HRS PRN PO PAIN 09/01/20 15:30 UNV Levothyroxine Sodium (Synthroid) 25 mcg DAILYAC PO 09/02/20 07:30 09/01/20 19:50 DC Magnesium Hydroxide (Milk Of Magnesia) 2,400 mg PRN QHS PRN PO CONSTIPATION, 2ND CHOICE 09/01/20 15:30 09/28/20 10:49 DC 09/04/20 05:12 Memantine (Namenda) 10 mg [id number] PO 09/01/20 16:30 09/28/20 10:49 DC 09/28/20 08:41 Metoprolol Succinate (Toprol Xl) 12.5 mg BID PO 09/01/20 21:00 09/28/20 10:49 DC 09/28/20 08:40 Olanzapine (ZyPREXA ZYDIS) 5 mg PRN Q12HR PRN PO ANXIETY / AGITATION 09/01/20 15:30 09/28/20 10:49 DC 09/20/20 20:10 Polyethylene Glycol (miraLAX) 17 gm DAILY PO 09/02/20 09:00 09/28/20 10:49 DC 09/28/20 08:39 Polyethylene Glycol (miraLAX) 17 gm PRN DAILY PRN PO CONSTIPATION, 1ST CHOICE 09/01/20 15:30 09/28/20 10:49 DC Potassium Chloride (Klor-Con) 20 meq BID PO 09/01/20 21:00 09/08/20 12:01 DC 09/08/20 08:01 Risperidone (RisperDAL) 0.5 mg TID PO 09/01/20 21:00 09/14/20 17:54 DC 09/14/20 06:05 Rivastigmine (Exelon 13.3mg) 1 patch DAILY TD 09/02/20 09:00 09/28/20 10:49 DC 09/28/20 08:39 Senna/Docusate Sodium (Senna Plus) 1 tab DAILY PO 09/02/20 09:00 09/28/20 10:49 DC 09/28/20 08:40 Sertraline HCl (Zoloft) 50 mg DAILY PO 09/02/20 09:00 09/02/20 16:48 DC 09/02/20 08:22 Tamsulosin HCl (Flomax) 0.4 mg DAILY PO 09/02/20 09:00 09/28/20 10:49 DC 09/28/20 08:40 Ascorbic Acid (Vitamin C) 500 mg DAILY PO 09/02/20 09:00 09/28/20 10:49 DC 09/28/20 08:40 Atorvastatin Calcium (Lipitor) 40 mg QHS PO 09/01/20 21:00 09/28/20 10:49 DC 09/27/20 19:58 Non-Formulary Medication (Capsaicin/ Menthol (Salonpas Gel-Patch Hot)) 1 each HS TP 09/01/20 21:00 UNV Chlorhexidine Gluconate (Peridex) 15 ml BID SWSP 09/01/20 21:00 09/28/20 10:49 DC 09/28/20 08:39 Multi-Ingred Cream/Lotion/Oil/ Oint (Hydrocerin) 1 camilla PRN BID PRN TP dry skin 09/01/20 16:45 09/28/20 10:49 DC Melatonin (Melatonin) 3 mg HS PO 09/01/20 21:00 09/28/20 10:49 DC 09/27/20 19:57 Non-Formulary Medication (Menthol (Biofreeze)) 1 camilla PRN TID PRN TOP MUSCLE PAIN 09/01/20 15:30 UNV Cyclobenzaprine HCl (Flexeril) 10 mg PRN TID PRN PO low back pain 09/01/20 17:00 09/28/20 10:49 DC 09/16/20 19:50 Oxybutynin Chloride (Ditropan) 5 mg BID PO 09/01/20 21:00 09/28/20 10:49 DC 09/28/20 08:39 Timolol Maleate (Timoptic 0.5% Oph) 1 drop BID OU 09/01/20 21:00 09/28/20 10:49 DC 09/28/20 08:39 Multi-Ingredient Ointment (Analgesic [place]) 1 camilla PRN QID PRN TP MUSCLE PAIN 09/01/20 16:15 Cancel Al Hydroxide/Mg Hydroxide (Mylanta Plus Xs) 15 ml PRN AFTMEALHC PRN PO DYSPEPSIA 09/01/20 16:15 09/28/20 10:49 DC Levothyroxine Sodium (Synthroid) 25 mcg DAILY06 PO 09/02/20 06:00 09/28/20 10:49 DC 09/28/20 06:00 Divalproex Sodium (Depakote Er) 125 mg DAILY PO 09/02/20 09:00 Cancel Sertraline HCl (Zoloft) 75 mg DAILY PO 09/03/20 09:00 09/05/20 11:00 DC 09/05/20 07:45 Sertraline HCl (Zoloft) 100 mg DAILY PO 09/06/20 09:00 09/12/20 18:22 DC 09/12/20 10:10 Divalproex Sodium (Depakote Sprinkles) 125 mg DAILY PO 09/03/20 09:00 09/04/20 17:23 DC 09/04/20 10:52 Divalproex Sodium (Depakote Sprinkles) 250 mg DAILY PO 09/05/20 09:00 09/28/20 10:49 DC 09/28/20 08:39 Bumetanide (Bumex) 2 mg DAILY PO 09/09/20 09:00 09/28/20 10:49 DC 09/28/20 08:42 Potassium Chloride (Klor-Con) 20 meq TID PO 09/08/20 14:00 09/28/20 10:49 DC 09/28/20 08:40 Bumetanide (Bumex) 1 mg 1X ONCE PO 09/08/20 14:00 09/08/20 14:01 DC 09/08/20 14:00 Bupropion HCl (Wellbutrin Xl) 150 mg DAILY PO 09/13/20 09:00 09/28/20 10:49 DC 09/28/20 08:39 Risperidone (RisperDAL) 0.5 mg QHS PO 09/15/20 21:00 09/22/20 04:20 DC 09/21/20 19:33 Clozapine (Clozaril) 25 mg HS PO 09/22/20 21:00 09/27/20 00:24 DC 09/26/20 20:21 Clozapine (Clozaril) 37.5 mg HS PO 09/27/20 21:00 09/28/20 10:49 DC 09/27/20 20:00 I have reviewed the current psychotropics carefully including drug interactions. Risk benefit ratio favors no change other than as noted in my dictated progress note. Diagnosis: Problems: (1) Anxiety disorder (2) Impulse control disorder (3) Lewy body dementia with behavioral disturbance (4) Dementia, vascular, with delusions (5) Dementia in Alzheimer's disease with delusions (6) Major neurocognitive disorder CAMERON ROSAS MD Sep 28, 2020 21:01
--- NOTE | 2020-09-28 22:05 | DS ---
DATE OF DISCHARGE: 09/28/2020 DISCHARGE SUMMARY/PSYCHIATRIC PROGRESS NOTE This note covers elements not covered in my initial note, 09/28/2020. REASON FOR ADMISSION: Please refer to the admission history for details. Briefly, the patient is a 70-year-old male with Parkinson's disease and Lewy body dementia, referred from [facility] by his primary care physician on account of increased confusion, delusions. He was calling 911 about missing children. He was actively hallucinating, mood has been extremely labile, aggressive, bumping his fists at peers. He had failed outpatient psychiatric interventions resulting in this referral. SIGNIFICANT FINDINGS AND CLINICAL COURSE: Following admission, the patient was seen daily individually by myself from a psychiatric standpoint, medical followup with Dr. Villeda/Dr. Plata. Adjustments were made in his psychotropics. He is quite psychotic. Risperdal was adjusted and increased, but this affected his Parkinson's disease negatively and was changed to Clozaril, increasing gradually to 37.5 mg p.o. at bedtime. Psychotic symptoms seemed to gradually subside. REVIEW OF SYSTEMS: Prior to discharge, impaired ambulation. No CV, , pulmonary, eye system symptoms on review. MENTAL STATUS EXAM: Oriented to himself and situation. Speech moderate latency, often responses monosyllabic. Abstraction fair, computation impaired, language function intact, attention span short. Mood and affect remain somewhat withdrawn. LABORATORY DATA: Reviewed. FINAL DIAGNOSES: Major neurocognitive disorder, probably Lewy body, early with delusion, depression, behavioral disturbance; anxiety disorder, unspecified; impulse control disorder, unspecified. Rest unchanged from admission. DISCHARGE MEDICATIONS: Please refer to the MRAD. DISCHARGE INSTRUCTIONS: [facility]. Time for discharge day management greater than 30 minutes. MAN Juan ROSAS MD DR: TARAS/cathy JOB#: [id number] / [id number]
== END 2020-09-28 10:48 | DRG 57 ==
LOC: GEROPSY 14:55
PROVIDERS: ADMIT Psychiatry & Neurology Psychiatry; ATTEND Psychiatry & Neurology Psychiatry
DX: G20 Parkinson's disease (principal); F01.51 Vascular dementia, unspecified severity, with behavioral disturbance; F02.81 Dementia in other diseases classified elsewhere, unspecified severity, with behavioral disturbance; F33.3 Major depressive disorder, recurrent, severe with psychotic symptoms; G30.9 Alzheimer's disease, unspecified; E03.9 Hypothyroidism, unspecified; E78.5 Hyperlipidemia, unspecified; F41.9 Anxiety disorder, unspecified; F63.9 Impulse disorder, unspecified; G25.81 Restless legs syndrome; I10 Essential (primary) hypertension; I48.91 Unspecified atrial fibrillation; K21.9 Gastro-esophageal reflux disease without esophagitis; N40.0 Benign prostatic hyperplasia without lower urinary tract symptoms; Z20.822 Contact with and (suspected) exposure to COVID-19; Z95.0 Presence of cardiac pacemaker
CPT/HCPCS: 36415; 71045; 80053; 80061; 80164; 81001; 82306; 82550; 82607; 82947; 83036; 83540; 83550; 83735; 83880; 84436; 84443; 84480; 84484; 85025; 93005; U0003; 97530